=== PATIENT | male | born 1955 | race Two or more races ===

== ENCOUNTER 2018-08-23 11:12 | Emergency (ER) | payer SELFPAY ==
[~2018-08-23] VITALS: Ht 170.2 cm; Wt 77.1 kg
[2018-08-23] MEDS ORDERED: ACETAMINOPHEN 325 MG TAB PO ONE (16:15)
[2018-08-23 16:21] VITALS: BP 161/94
== END 2018-08-23 16:22 | disposition home or self-care (01) ==
LOC: ER 11:12
DX: J20.9 Acute bronchitis, unspecified (principal); E11.9 Type 2 diabetes mellitus without complications; E78.5 Hyperlipidemia, unspecified; I10 Essential (primary) hypertension
CPT/HCPCS: 71046; 93005

== ENCOUNTER → 2019-12-19 | Emergency (ER) | payer SELFPAY ==
[~2019-12-19] VITALS: Ht 170.2 cm; Wt 78.5 kg
[~2019-12-19] MED LIST: SODIUM CHLORIDE 0.9% 1,000 ML IV ONE
[2019-12-19 19:56] LABS: Basophils # (auto) 0 10 ^3/uL (0-0.2); Basophils % (auto) 0.1 % (0.0-2.0); Eosinophils # (auto) 0 10 ^3/uL (0-0.8); Hemoglobin 13.9 g/dL (13.5-17.5); Lymphocytes # (auto) 1.2 10 ^3/uL (0.4-5.4); Lymphocytes % (auto) 26.5 % (10.0-50.0); Mean Corpuscular Hemoglobin 32.9 pg (28.0-32.0); Mean Corpuscular Hgb Conc. 35.6 g/dL (32.0-36.0); Mean Corpuscular Volume 92.4 fL (80.0-100.0); Monocytes # (auto) 0.6 10 ^3/uL (0-1.3); Monocytes % (auto) 12.4 % (0.0-12.0); Neutrophils # (auto) 2.7 10 ^3/uL (1.6-8.6); Platelet Count (auto) 170 10^3/uL (140-450); Red Blood Cells 4.23 10^6/uL (4.5-5.90); Red Cell Distribution Width 13.9 % (11.8-14.3); White Blood Cell 4.5 10^3/uL (4.4-10.8)
[2019-12-19 20:14] LABS: Albumin 3.6 g/dL (3.4-5.0); Calcium 8.7 mg/dL (8.5-10.1); Magnesium 2.2 mg/dL (1.6-2.6); Potassium 3.8 mmol/L (3.5-5.1)
[2019-12-19 20:23] LABS: BUN/Creatinine Ratio 14.6; Bilirubin, Total 0.5 mg/dL (0.2-1.0); CRP High Sensitivity 10.4 mg/dL (< 0.3); Total Protein 7.9 g/dL (6.4-8.2)
[2019-12-19 22:29] VITALS: BP 117/63
== END | disposition home or self-care (01) ==
LOC: ER 18:13
DX: Z03.818 Encounter for observation for suspected exposure to other biological agents ruled out (principal); K52.9 Noninfective gastroenteritis and colitis, unspecified; E11.9 Type 2 diabetes mellitus without complications; I10 Essential (primary) hypertension; E78.5 Hyperlipidemia, unspecified
CPT/HCPCS: 36415; 71045; 74176; 80053; 82728; 83605; 83615; 83735; 84443; 85025; 85379; 86141; 87040; 87070; 87804; 87880; 96360; 99285; C9803; J7030; U0003

== ENCOUNTER 2022-01-11 09:18 | Inpatient (IN) | payer OTHER ==
[~2022-01-11] VITALS: Ht 134.6 cm; Wt 83.3 kg
[2022-01-11] MEDS ORDERED: SODIUM CHLORIDE 0.9% 1,000 ML IV ONE ×2 (09:30→11:00)
[2022-01-11 10:13] LABS: Basophils # (auto) 0 10 ^3/uL (0-0.2); Basophils % (auto) 0.1 % (0.0-2.0); Eosinophils # (auto) 0 10 ^3/uL (0-0.8); Hemoglobin 12.8 g/dL (13.5-17.5); Lymphocytes # (auto) 0.3 10 ^3/uL (0.4-5.4); Lymphocytes % (auto) 1.4 % (10.0-50.0); Mean Corpuscular Hemoglobin 28.5 pg (28.0-32.0); Mean Corpuscular Hgb Conc. 32.8 g/dL (32.0-36.0); Mean Corpuscular Volume 87.1 fL (80.0-100.0); Monocytes # (auto) 0.9 10 ^3/uL (0-1.3); Monocytes % (auto) 4.8 % (0.0-12.0); Neutrophils # (auto) 17.1 10 ^3/uL (1.6-8.6); Neutrophils % (auto) 93.7 % (37.0-80.0); Red Blood Cells 4.48 10^6/uL (4.5-5.90); Red Cell Distribution Width 12.8 % (11.8-14.3); White Blood Cell 18.3 10^3/uL (4.4-10.8)
[2022-01-11 10:21] LABS: Albumin 3.6 g/dL (3.4-5.0); Calcium 9.2 mg/dL (8.5-10.1); Potassium 4.5 mmol/L (3.5-5.1)
[2022-01-11 10:29] LABS: Total Protein 7.5 g/dL (6.4-8.2)
[2022-01-11 10:43] LABS: BUN/Creatinine Ratio 16.7
[2022-01-11] MEDS ORDERED: PIPERACILLIN-TAZOB 3.375GM 100 ML IV ONE (11:00)
[2022-01-11] MEDS ORDERED: InsuLIN REG 1unit/0.01ml Soln (100units/ml) IV ONE (11:00)
[2022-01-11 12:31] LABS: Lactic Acid w/Reflex 2.9 mmol/L (0.4-2.0)
[2022-01-11] MEDS ORDERED: INSULIN LANTUS (GLARGINE) 1 /0.01ml (100units/ml) SC ONE (13:00)
[2022-01-11] MEDS ORDERED: POTASSIUM CHL 20MEQ/100ML 100 ML IV PRN (13:00)
[2022-01-11] MEDS ORDERED: POTASSIUM CHL 20MEQ/100ML 200 ML IV PRN (13:00)
[2022-01-11] MEDS ORDERED: DEXTROSE (50%) 50ML SYRG IV PRN ×2 (13:00→23:45)
[2022-01-11] MEDS: MAGNESIUM SULFATE 1GM/100ML 200 ML IV ONE ×2 (13:00→15:38)
[2022-01-11] MEDS ORDERED: MORPHINE SULFATE INJ 2 MG/ml SYRG IV PRN (13:00)
[2022-01-11] MEDS ORDERED: NITROGLYCERIN 0.4 MG SL TAB SL PRN (13:00)
[2022-01-11] MEDS ORDERED: InsuLIN R (HUMAN) 100 UNITS in SODIUM CHL 0.9% 99 ML IV SCH (13:00)
[2022-01-11] MEDS ORDERED: cefTRIAXone 1GM/50ML D5W 50 ML IV ONE (13:15)
[2022-01-11 13:52] LABS: Basophils # (auto) 0 10 ^3/uL (0-0.2); Basophils % (auto) 0.2 % (0.0-2.0); Eosinophils # (auto) 0 10 ^3/uL (0-0.8); Hematocrit 35.7 % (41.0-53.0); Hemoglobin 11.7 g/dL (13.5-17.5); Lymphocytes # (auto) 0.2 10 ^3/uL (0.4-5.4); Mean Corpuscular Hemoglobin 28.7 pg (28.0-32.0); Mean Corpuscular Hgb Conc. 32.9 g/dL (32.0-36.0); Mean Corpuscular Volume 87.3 fL (80.0-100.0); Monocytes # (auto) 0.6 10 ^3/uL (0-1.3); Monocytes % (auto) 3.6 % (0.0-12.0); Neutrophils % (auto) 95.2 % (37.0-80.0); Red Blood Cells 4.09 10^6/uL (4.5-5.90); Red Cell Distribution Width 12.8 % (11.8-14.3); White Blood Cell 16.8 10^3/uL (4.4-10.8)
[2022-01-11 14:04] LABS: Urine Bacteria NONE SEEN /hpf (None Seen); Urine Blood Negative /uL (Negative); Urine WBC 5 /hpf (0 - 3)
[2022-01-11 14:13] LABS: Calcium 8.3 mg/dL (8.5-10.1); Magnesium 1.7 mg/dL (1.6-2.6); Potassium 4.1 mmol/L (3.5-5.1)
[2022-01-11 14:15] LABS: BUN/Creatinine Ratio 15.6; Phosphorus 2.7 mg/dL (2.5-4.90)
[2022-01-11 14:26] LABS: Cholesterol 125 mg/dL (< 200)
[2022-01-11 14:29] LABS: HDL Cholesterol 29 mg/dL (40-59); LDL Cholesterol 73 mg/dL (< 100); Triglycerides 179 mg/dL (< 150)
[2022-01-11] MEDS: SODIUM CHLORIDE 0.9% 1,000 ML IV SCH ×2 (15:00→15:42)
[2022-01-11] MEDS: ACCU-CHEK COMFORT CURVE STRIP VI SCH ×8 (15:45→23:50)
[2022-01-11] MEDS ORDERED: SODIUM CHLORIDE 0.9% 1,000 ML IV SCH ×2 (17:00→19:00)
[2022-01-11] MEDS ORDERED: MAGNESIUM SULFATE 1GM/100ML 100 ML IV ONE (17:13)
[2022-01-11 20:23] LABS: BUN/Creatinine Ratio 18.8; Potassium 3.7 mmol/L (3.5-5.1)
[2022-01-11] MEDS: D5W/SOD CHL 0.45% 1,000 ML IV SCH (23:45)
[2022-01-12] MEDS: ACCU-CHEK COMFORT CURVE STRIP VI SCH ×4 (00:22→17:55)
[2022-01-12 01:09] LABS: BUN/Creatinine Ratio 20.3; Calcium 7.9 mg/dL (8.5-10.1); Potassium 3.4 mmol/L (3.5-5.1)
[2022-01-12] MEDS ORDERED: ACETAMINOPHEN 325 MG TAB PO PRN (02:45)
[2022-01-12 04:02] VITALS: BP 120/53
[2022-01-12] MEDS ORDERED: LOVA40TA72 PO (04:28)
[2022-01-12] MEDS ORDERED: LANC-634 (04:28)
[2022-01-12] MEDS ORDERED: AMLO-496 PO (04:28)
[2022-01-12] MEDS ORDERED: GLUC-245 XX (04:28)
[2022-01-12 04:52] VITALS: BP 120/53
[2022-01-12] MEDS: InsuLIN REG 1unit/0.01ml Soln (100units/ml) SC SCH ×4 (06:34→18:09)
[2022-01-12 07:20] LABS: Calcium 7.9 mg/dL (8.5-10.1); Potassium 3.5 mmol/L (3.5-5.1)
[2022-01-12 09:00] VITALS: BP 111/56
[2022-01-12] MEDS: cefTRIAXone 1GM/50ML D5W 50 ML IV SCH (09:14)
[2022-01-12] MEDS: INSULIN LANTUS (GLARGINE) 1 /0.01ml (100units/ml) SC SCH (10:00)
[2022-01-12 13:00] VITALS: BP 110/61
[2022-01-12] MEDS: D5W/SOD CHL 0.45% 1,000 ML IV SCH (13:05)
[2022-01-12 16:54] VITALS: BP 150/69
[2022-01-12 20:07] LABS: Basophils # (auto) 0 10 ^3/uL (0-0.2); Basophils % (auto) 0.5 % (0.0-2.0); Eosinophils # (auto) 0.2 10 ^3/uL (0-0.8); Eosinophils % (auto) 2.2 % (0.0-7.0); Hematocrit 35.7 % (41.0-53.0); Lymphocytes # (auto) 0.6 10 ^3/uL (0.4-5.4); Lymphocytes % (auto) 8.2 % (10.0-50.0); Mean Corpuscular Hemoglobin 29.2 pg (28.0-32.0); Mean Corpuscular Hgb Conc. 33.7 g/dL (32.0-36.0); Mean Corpuscular Volume 86.9 fL (80.0-100.0); Monocytes # (auto) 0.6 10 ^3/uL (0-1.3); Monocytes % (auto) 8.2 % (0.0-12.0); Neutrophils % (auto) 80.9 % (37.0-80.0); Red Blood Cells 4.11 10^6/uL (4.5-5.90); White Blood Cell 7.4 10^3/uL (4.4-10.8)
[2022-01-12 20:23] LABS: BUN/Creatinine Ratio 12.9; Calcium 8.3 mg/dL (8.5-10.1); Potassium 3.8 mmol/L (3.5-5.1)
[2022-01-12 22:00] VITALS: BP 144/74
[2022-01-13] MEDS: ACCU-CHEK COMFORT CURVE STRIP VI SCH ×4 (00:02→17:50)
[2022-01-13] MEDS: InsuLIN REG 1unit/0.01ml Soln (100units/ml) SC SCH ×4 (00:03→17:56)
[2022-01-13] MEDS: D5W/SOD CHL 0.45% 1,000 ML IV SCH (02:57)
[2022-01-13 05:00] VITALS: BP 133/59
[2022-01-13 06:46] LABS: Chloride 108 mmol/L (98-107); Potassium 4.1 mmol/L (3.5-5.1); Sodium 135 mmol/L (136-145)
[2022-01-13 06:54] LABS: Albumin 2.5 g/dL (3.4-5.0); Anion Gap 9 (5-15); Aspartate Aminotransferase 99 U/L (15-37); BUN/Creatinine Ratio 13.8; Blood Urea Nitrogen 16 mg/dL (7-18); Calcium 7.9 mg/dL (8.5-10.1); Carbon Dioxide 18 mmol/L (21-32); GFR African American 81 mL/min; GFR Non-African American 67 mL/min; Glucose 324 mg/dL (74-106); Lipase 213 U/L (73-393)
[2022-01-13 07:03] LABS: Alanine Aminotransferase 270 U/L (16-61); Alkaline Phosphatase 176 U/L (45-117); Bilirubin, Total 1.5 mg/dL (0.2-1.0)
[2022-01-13] MEDS: cefTRIAXone 1GM/50ML D5W 50 ML IV SCH (08:55)
[2022-01-13 08:59] VITALS: BP 148/67
[2022-01-13 09:45] LABS: Hepatitis B Surface Antibody Negative (Negative)
[2022-01-13 10:22] LABS: Hepatitis A Total Antibody Positive (Negative)
[2022-01-13] MEDS ORDERED: SODIUM BICARBONATE 8.4 % INJ 50ML VIAL IV ONE (10:30)
[2022-01-13] MEDS: INSULIN LANTUS (GLARGINE) 1 /0.01ml (100units/ml) SC SCH (10:31)
[2022-01-13] MEDS: SODIUM CHLORIDE 0.9% 1,000 ML IV SCH ×2 (11:14→23:50)
[2022-01-13 11:57] LABS: Hepatitis C Antibody Negative (Negative)
[2022-01-13 13:00] VITALS: BP 148/70
[2022-01-13 17:00] VITALS: BP 146/82
[2022-01-13 22:00] VITALS: BP 145/76
[2022-01-13] MEDS: ERGOCALCIFEROL 50,000 UNIT(1.25MG) CAP PO SCH (22:00)
[2022-01-14] MEDS: InsuLIN REG 1unit/0.01ml Soln (100units/ml) SC SCH ×3 (00:23→12:55)
[2022-01-14] MEDS: ACCU-CHEK COMFORT CURVE STRIP VI SCH ×3 (00:24→12:53)
[2022-01-14 05:00] VITALS: BP 150/76
[2022-01-14 07:08] LABS: Basophils # (auto) 0 10 ^3/uL (0-0.2); Basophils % (auto) 0.3 % (0.0-2.0); Eosinophils # (auto) 0.2 10 ^3/uL (0-0.8); Eosinophils % (auto) 3.6 % (0.0-7.0); Hematocrit 34.7 % (41.0-53.0); Hemoglobin 11.8 g/dL (13.5-17.5); Lymphocytes # (auto) 1.1 10 ^3/uL (0.4-5.4); Lymphocytes % (auto) 18.6 % (10.0-50.0); Mean Corpuscular Hemoglobin 29.2 pg (28.0-32.0); Mean Corpuscular Volume 85.9 fL (80.0-100.0); Monocytes # (auto) 0.5 10 ^3/uL (0-1.3); Monocytes % (auto) 8.8 % (0.0-12.0); Neutrophils # (auto) 4.2 10 ^3/uL (1.6-8.6); Neutrophils % (auto) 68.7 % (37.0-80.0); Nucleated Red Blood Cells % 0.1 %; Red Blood Cells 4.04 10^6/uL (4.5-5.90); Red Cell Distribution Width 12.7 % (11.8-14.3); White Blood Cell 6.1 10^3/uL (4.4-10.8)
[2022-01-14 07:25] LABS: Albumin 2.7 g/dL (3.4-5.0); Calcium 8.4 mg/dL (8.5-10.1); Magnesium 1.9 mg/dL (1.6-2.6); Potassium 3.6 mmol/L (3.5-5.1)
[2022-01-14 07:28] LABS: BUN/Creatinine Ratio 14.1; Bilirubin, Total 0.9 mg/dL (0.2-1.0); Phosphorus 3.1 mg/dL (2.5-4.90); Total Protein 6.5 g/dL (6.4-8.2)
[2022-01-14] MEDS ORDERED: ERGO1CAP23 PO (08:37)
[2022-01-14] MEDS ORDERED: GLIP5TAB12 PO (08:37)
[2022-01-14] MEDS ORDERED: METF-372 PO (08:37)
[2022-01-14] MEDS ORDERED: LOSA-69 PO (08:37)
[2022-01-14] MEDS ORDERED: EMPA1TAB3 PO (08:37)
[2022-01-14 08:40] VITALS: BP 138/84
[2022-01-14] MEDS ORDERED: LOSARTAN POTASSIUM 50 MG TAB PO ONE (08:45)
[2022-01-14] MEDS: cefTRIAXone 1GM/50ML D5W 50 ML IV SCH (09:05)
[2022-01-14] MEDS: INSULIN LANTUS (GLARGINE) 1 /0.01ml (100units/ml) SC SCH (09:38)
[2022-01-14] MEDS: ERGOCALCIFEROL 50,000 UNIT(1.25MG) CAP PO SCH (09:58)
[2022-01-14 11:42] LABS: Urine Bacteria FEW /hpf (None Seen); Urine Blood 3+ /uL (Negative); Urine Mucus FEW (None Seen); Urine WBC 6 /hpf (0 - 3)
[2022-01-14 12:36] VITALS: BP 139/74
[2022-01-14] MEDS: SODIUM CHLORIDE 0.9% 1,000 ML IV SCH (13:37)
[2022-01-14] MEDS ORDERED: LEVO750T8 PO (14:53)
[2022-01-14 15:59] VITALS: BP 159/77
== END 2022-01-14 16:59 | disposition home or self-care (01) | DRG 871 ==
LOC: ER 09:18 → TELE 12:59 → TELE-CENTR 01-12 03:40
PROVIDERS: ADMIT Registered Nurse; ATTEND Internal Medicine
DX: A41.51 Sepsis due to Escherichia coli [E. coli] (principal); E11.10 Type 2 diabetes mellitus with ketoacidosis without coma; G93.41 Metabolic encephalopathy; N17.0 Acute kidney failure with tubular necrosis; N39.0 Urinary tract infection, site not specified; E44.0 Moderate protein-calorie malnutrition; Z68.42 Body mass index [BMI] 45.0-49.9, adult; E78.5 Hyperlipidemia, unspecified; I10 Essential (primary) hypertension; Z20.822 Contact with and (suspected) exposure to COVID-19; K76.0 Fatty (change of) liver, not elsewhere classified; E11.65 Type 2 diabetes mellitus with hyperglycemia; Z83.3 Family history of diabetes mellitus; E78.00 Pure hypercholesterolemia, unspecified
CPT/HCPCS: 36415; 36600; 71045; 76705; 80048; 80053; 80061; 81001; 82010; 82043; 82306; 82805; 82962; 83036; 83605; 83690; 83735; 83880; 83930; 84100; 84443; 84484; 85025; 86704; 86706; 86708; 86803; 87040; 87077; 87086; 87186; 87340; 96365; 96375; 99291; G0378; J0696; J1815; J2543

== ENCOUNTER → 2022-01-20 | Outpatient (CLI) | payer OTHER ==
[~2022-01-20] MED LIST changes: +EMPA1TAB3 PO; +ERGO1CAP23 PO; +GLIP5TAB12 PO; +GLUC-245 XX; +LANC-634; +LEVO750T8 PO; +LOSA-69 PO; +METF-372 PO; -SODIUM CHLORIDE 0.9% 1,000 ML IV ONE
[2022-01-20 09:14] LABS: Potassium 4.2 mmol/L (3.5-5.1)
[2022-01-20 09:19] LABS: Albumin 3.5 g/dL (3.4-5.0); BUN/Creatinine Ratio 15.6; Bilirubin, Total 0.6 mg/dL (0.2-1.0); Calcium 9.1 mg/dL (8.5-10.1); Total Protein 7.1 g/dL (6.4-8.2)
== END | disposition home or self-care (01) ==
LOC: LAB 08:23
PROVIDERS: ATTEND Internal Medicine
DX: I10 Essential (primary) hypertension (principal)
CPT/HCPCS: 36415; 80053

== ENCOUNTER → 2022-02-14 | Outpatient (CLI) | payer OTHER | END | disposition home or self-care (01) | LOC: LAB 12:25 | PROVIDERS: ATTEND Internal Medicine | DX: Z12.11 Encounter for screening for malignant neoplasm of colon (principal) | CPT/HCPCS: 82270 ==

== ENCOUNTER → 2022-02-19 | Outpatient (CLI) | payer OTHER ==
[2022-02-19 11:11] LABS: Basophils # (auto) 0 10 ^3/uL (0-0.2); Basophils % (auto) 0.2 % (0.0-2.0); Eosinophils # (auto) 0.3 10 ^3/uL (0-0.8); Hematocrit 41.8 % (41.0-53.0); Hemoglobin 13.9 g/dL (13.5-17.5); Lymphocytes # (auto) 2.1 10 ^3/uL (0.4-5.4); Lymphocytes % (auto) 20.3 % (10.0-50.0); Mean Corpuscular Hgb Conc. 33.2 g/dL (32.0-36.0); Mean Corpuscular Volume 84.6 fL (80.0-100.0); Monocytes # (auto) 0.6 10 ^3/uL (0-1.3); Monocytes % (auto) 5.9 % (0.0-12.0); Neutrophils # (auto) 7.2 10 ^3/uL (1.6-8.6); Neutrophils % (auto) 70.6 % (37.0-80.0); Nucleated Red Blood Cells % 0.1 %; Red Blood Cells 4.94 10^6/uL (4.5-5.90); Red Cell Distribution Width 13.7 % (11.8-14.3); White Blood Cell 10.1 10^3/uL (4.4-10.8)
[2022-02-19 11:34] LABS: Potassium 4.7 mmol/L (3.5-5.1)
[2022-02-19 11:43] LABS: Albumin 4.2 g/dL (3.4-5.0); BUN/Creatinine Ratio 22.7; Bilirubin, Total 0.7 mg/dL (0.2-1.0); Calcium 9.5 mg/dL (8.5-10.1); Total Protein 7.7 g/dL (6.4-8.2)
== END | disposition home or self-care (01) ==
LOC: LAB 10:32
PROVIDERS: ATTEND Internal Medicine
DX: Z12.5 Encounter for screening for malignant neoplasm of prostate (principal); Z12.11 Encounter for screening for malignant neoplasm of colon; E11.69 Type 2 diabetes mellitus with other specified complication; E78.5 Hyperlipidemia, unspecified
CPT/HCPCS: 36415; 80053; 80061; 82043; 82306; 83036; 84153; 84443; 85025

== ENCOUNTER 2022-06-03 15:46 | Emergency (ER) | payer OTHER ==
[~2022-06-03] VITALS: Ht 167.6 cm; Wt 68.0 kg
[2022-06-03 16:58] LABS: Basophils # (auto) 0 10 ^3/uL (0-0.2); Basophils % (auto) 0.2 % (0.0-2.0); Eosinophils # (auto) 0.1 10 ^3/uL (0-0.8); Eosinophils % (auto) 0.9 % (0.0-7.0); Hematocrit 38.3 % (41.0-53.0); Hemoglobin 12.7 g/dL (13.5-17.5); Lymphocytes # (auto) 1.1 10 ^3/uL (0.4-5.4); Lymphocytes % (auto) 7.2 % (10.0-50.0); Mean Corpuscular Hemoglobin 28.5 pg (28.0-32.0); Mean Corpuscular Volume 86.2 fL (80.0-100.0); Monocytes % (auto) 6.5 % (0.0-12.0); Neutrophils # (auto) 13.2 10 ^3/uL (1.6-8.6); Neutrophils % (auto) 85.2 % (37.0-80.0); Red Blood Cells 4.45 10^6/uL (4.5-5.90); Red Cell Distribution Width 14.5 % (11.8-14.3); White Blood Cell 15.5 10^3/uL (4.4-10.8)
[2022-06-03 17:12] LABS: INR 1.04 (0.9-1.15); Partial Thromboplastin Time 33.9 sec (24.6-33.4)
[2022-06-03 17:16] LABS: Albumin 3.8 g/dL (3.4-5.0); Potassium 3.8 mmol/L (3.5-5.1)
[2022-06-03 17:18] LABS: BUN/Creatinine Ratio 18.9
[2022-06-03 17:20] LABS: Total Protein 7.5 g/dL (6.4-8.2)
[2022-06-03] MEDS ORDERED: LEVO750T64 PO (17:43)
[2022-06-03] MEDS ORDERED: LEVO750T8 PO (19:58)
[2022-06-03] MEDS ORDERED: ACETAMINOPHEN 500 MG TAB PO ONE (20:00)
[2022-06-03] MEDS ORDERED: DEXT1SYP9 PO (20:01)
[2022-06-03 20:42] VITALS: BP 114/89
== END 2022-06-03 19:59 | disposition home or self-care (01) ==
LOC: ER 15:46
DX: J18.9 Pneumonia, unspecified organism (principal); I10 Essential (primary) hypertension; E11.9 Type 2 diabetes mellitus without complications; E78.5 Hyperlipidemia, unspecified; Z79.1 Long term (current) use of non-steroidal anti-inflammatories (NSAID); Z79.2 Long term (current) use of antibiotics; Z79.899 Other long term (current) drug therapy; Z20.822 Contact with and (suspected) exposure to COVID-19
CPT/HCPCS: 36415; 71046; 80053; 83735; 83880; 84484; 85025; 85610; 85730; 87426; 87804; 93005

== ENCOUNTER 2022-08-06 18:11 | Inpatient (IN) | payer OTHER ==
[~2022-08-06] VITALS: Ht 170.2 cm; Wt 80.1 kg
[~2022-08-06 18:11] MED LIST changes: +DEXT1SYP9 PO
[2022-08-06] MEDS ORDERED: SODIUM CHLORIDE 0.9% 1,000 ML IV ONE (18:30)
[2022-08-06 19:11] LABS: Basophils # (auto) 0 10 ^3/uL (0-0.2); Basophils % (auto) 0.1 % (0.0-2.0); Eosinophils # (auto) 0.1 10 ^3/uL (0-0.8); Eosinophils % (auto) 0.4 % (0.0-7.0); Hematocrit 38.9 % (41.0-53.0); Hemoglobin 13.4 g/dL (13.5-17.5); Lymphocytes # (auto) 0.3 10 ^3/uL (0.4-5.4); Lymphocytes % (auto) 1.9 % (10.0-50.0); Mean Corpuscular Hemoglobin 28.8 pg (28.0-32.0); Mean Corpuscular Hgb Conc. 34.4 g/dL (32.0-36.0); Mean Corpuscular Volume 83.6 fL (80.0-100.0); Monocytes # (auto) 0.7 10 ^3/uL (0-1.3); Monocytes % (auto) 4.8 % (0.0-12.0); Neutrophils # (auto) 12.8 10 ^3/uL (1.6-8.6); Neutrophils % (auto) 92.8 % (37.0-80.0); Nucleated Red Blood Cells % 0.1 %; Red Blood Cells 4.66 10^6/uL (4.5-5.90); Red Cell Distribution Width 14.7 % (11.8-14.3); White Blood Cell 13.8 10^3/uL (4.4-10.8)
[2022-08-06 19:25] LABS: Calcium 9.6 mg/dL (8.5-10.1); Magnesium 1.8 mg/dL (1.6-2.6); Potassium 3.7 mmol/L (3.5-5.1)
[2022-08-06 19:26] LABS: INR 1.08 (0.9-1.15); Partial Thromboplastin Time 25.5 sec (24.6-33.4)
[2022-08-06 19:31] LABS: BUN/Creatinine Ratio 18.8; Bilirubin, Total 3.3 mg/dL (0.2-1.0); Total Protein 8.1 g/dL (6.4-8.2)
[2022-08-06 22:17] LABS: Urine Bacteria NONE SEEN /hpf (None Seen); Urine Blood Negative /uL (Negative); Urine Mucus FEW (None Seen); Urine Specific Gravity 1.027 (1.001-1.035); Urine WBC <1 /hpf (0 - 3)
[2022-08-06] MEDS ORDERED: MORPHINE SULFATE INJ 2 MG/ml SYRG IV PRN (22:30)
[2022-08-06] MEDS ORDERED: NITROGLYCERIN 0.4 MG SL TAB SL PRN (22:30)
[2022-08-06 22:32] LABS: Alcohol, Urine < 3.0 mg/dL (0-10); Amphetamine Screen, Urine NEGATIVE (NEGATIVE); Barbiturate Scree,Urine NEGATIVE (NEGATIVE); Benzodiazephine Screen, Urine NEGATIVE (NEGATIVE); Cannabinoid Screen, Urine NEGATIVE (NEGATIVE); Cocaine Screen, Urine NEGATIVE (NEGATIVE); Opiate Scree,Urine NEGATIVE (NEGATIVE); Phencyclidine Screen, Urine NEGATIVE (NEGATIVE)
[2022-08-06] MEDS ORDERED: VANCOMYCIN PER PHARMACY 0 MG IV SCH ×2 (22:45→23:15)
[2022-08-06] MEDS ORDERED: DEXTROSE (50%) 50ML SYRG IV PRN (22:45)
[2022-08-06] MEDS ORDERED: VANCOMYCIN 1GM/250ML 250 ML IV ONE (23:15)
[2022-08-07 00:08] LABS: Lactic Acid w/Reflex 2.9 mmol/L (0.4-2.0)
[2022-08-07] MEDS: SODIUM CHLORIDE 0.9% 1,000 ML IV SCH ×4 (01:16→23:56)
[2022-08-07 05:13] LABS: Basophils # (auto) 0 10 ^3/uL (0-0.2); Eosinophils # (auto) 0 10 ^3/uL (0-0.8); Eosinophils % (auto) 0.1 % (0.0-7.0); Hematocrit 33.6 % (41.0-53.0); Hemoglobin 11.3 g/dL (13.5-17.5); Lymphocytes # (auto) 0.5 10 ^3/uL (0.4-5.4); Lymphocytes % (auto) 3.8 % (10.0-50.0); Mean Corpuscular Hemoglobin 28.3 pg (28.0-32.0); Mean Corpuscular Hgb Conc. 33.7 g/dL (32.0-36.0); Mean Corpuscular Volume 83.9 fL (80.0-100.0); Monocytes # (auto) 0.9 10 ^3/uL (0-1.3); Monocytes % (auto) 6.4 % (0.0-12.0); Neutrophils # (auto) 12.2 10 ^3/uL (1.6-8.6); Neutrophils % (auto) 89.7 % (37.0-80.0); Red Blood Cells 4.01 10^6/uL (4.5-5.90); Red Cell Distribution Width 14.8 % (11.8-14.3); White Blood Cell 13.6 10^3/uL (4.4-10.8)
[2022-08-07 05:25] LABS: Albumin 3.3 g/dL (3.4-5.0)
[2022-08-07 05:28] LABS: BUN/Creatinine Ratio 20.4; Bilirubin, Total 3.4 mg/dL (0.2-1.0); Total Protein 6.4 g/dL (6.4-8.2)
[2022-08-07] MEDS: ACCU-CHEK COMFORT CURVE STRIP VI SCH ×4 (07:00→22:00)
[2022-08-07] MEDS: InsuLIN REG 1unit/0.01ml Soln (100units/ml) SC SCH ×4 (07:06→22:00)
[2022-08-07 08:21] LABS: Cholesterol 82 mg/dL (< 200); HDL Cholesterol 31 mg/dL (40-59); LDL Cholesterol 52 mg/dL (< 100); Triglycerides 81 mg/dL (< 150)
[2022-08-07 08:30] LABS: Free T4 (Free Thyroxine) 1.25 ng/dL (0.89-1.76)
[2022-08-07 08:31] LABS: T3 Total 0.7 ng/mL (0.60-1.81)
[2022-08-07] MEDS: PANTOPRAZOLE 40 MG/10 ML VIAL INJ IV SCH (10:18)
[2022-08-07] MEDS: PIPERACILLIN-TAZOB 3.375GM 100 ML IV SCH ×2 (12:49→18:31)
[2022-08-07 13:53] LABS: Hepatitis A Ab IgM Negative
[2022-08-07 14:03] LABS: Hepatitis B Core IgM Negative
[2022-08-07 14:08] LABS: Hepatitis B Surface Antibody Negative (Negative)
[2022-08-07 14:14] LABS: Hepatitis C Antibody Negative (Negative)
[2022-08-07 14:17] LABS: Hepatitis C Antibody Negative (Negative)
[2022-08-07 14:29] LABS: Hepatitis A Total Antibody Positive (Negative)
[2022-08-07] MEDS: VANCOMYCIN 1GM/250ML 250 ML IV SCH (17:04)
[2022-08-07] MEDS ORDERED: LORazepam 0.5 MG TAB PO ONE (23:00)
[2022-08-08] MEDS: PIPERACILLIN-TAZOB 3.375GM 100 ML IV SCH ×4 (00:39→22:04)
[2022-08-08 05:57] LABS: Basophils # (auto) 0 10 ^3/uL (0-0.2); Basophils % (auto) 0.1 % (0.0-2.0); Eosinophils # (auto) 0.2 10 ^3/uL (0-0.8); Eosinophils % (auto) 2.3 % (0.0-7.0); Hematocrit 34.6 % (41.0-53.0); Hemoglobin 11.9 g/dL (13.5-17.5); Lymphocytes # (auto) 0.9 10 ^3/uL (0.4-5.4); Lymphocytes % (auto) 9.8 % (10.0-50.0); Mean Corpuscular Hgb Conc. 34.3 g/dL (32.0-36.0); Mean Corpuscular Volume 84.4 fL (80.0-100.0); Monocytes # (auto) 0.6 10 ^3/uL (0-1.3); Monocytes % (auto) 6.8 % (0.0-12.0); Neutrophils # (auto) 7.4 10 ^3/uL (1.6-8.6); White Blood Cell 9.2 10^3/uL (4.4-10.8)
[2022-08-08 06:15] LABS: Albumin 3.5 g/dL (3.4-5.0); Calcium 8.1 mg/dL (8.5-10.1); Potassium 3.6 mmol/L (3.5-5.1)
[2022-08-08 06:19] LABS: Bilirubin, Total 3.6 mg/dL (0.2-1.0)
[2022-08-08] MEDS: SODIUM CHLORIDE 0.9% 1,000 ML IV SCH (06:54)
[2022-08-08] MEDS: ACCU-CHEK COMFORT CURVE STRIP VI SCH ×4 (07:10→21:38)
[2022-08-08] MEDS: InsuLIN REG 1unit/0.01ml Soln (100units/ml) SC SCH ×4 (07:13→22:01)
[2022-08-08] MEDS: PANTOPRAZOLE 40 MG/10 ML VIAL INJ IV SCH (10:59)
[2022-08-08 13:56] VITALS: BP 132/64
[2022-08-08] MEDS: VANCOMYCIN 1GM/250ML 250 ML IV SCH (14:09)
[2022-08-08] MEDS ORDERED: PIPERACILLIN-TAZOB 3.375GM 100 ML IV SCH (14:30)
[2022-08-08] MEDS ORDERED: hydrALAZINE HCL 25 MG TAB PO PRN (17:00)
[2022-08-08] MEDS ORDERED: hydrALAZINE HCL 20 MG/ML VL IV PRN (17:15)
[2022-08-08 17:18] VITALS: BP 171/79
[2022-08-08 18:52] VITALS: BP 117/69
[2022-08-08 22:00] VITALS: BP 148/68
[2022-08-09] MEDS: VANCOMYCIN 1GM/250ML 250 ML IV SCH (01:21)
[2022-08-09] MEDS: PIPERACILLIN-TAZOB 3.375GM 100 ML IV SCH ×2 (03:51→10:03)
[2022-08-09 04:59] VITALS: BP 142/63
[2022-08-09] MEDS: ACCU-CHEK COMFORT CURVE STRIP VI SCH ×2 (06:19→11:45)
[2022-08-09] MEDS: InsuLIN REG 1unit/0.01ml Soln (100units/ml) SC SCH ×2 (06:21→11:41)
[2022-08-09 06:28] LABS: Potassium 3.5 mmol/L (3.5-5.1)
[2022-08-09 06:37] LABS: BUN/Creatinine Ratio 10.8; Calcium 8.2 mg/dL (8.5-10.1); Total Protein 5.6 g/dL (6.4-8.2)
[2022-08-09 09:00] VITALS: BP 173/67
[2022-08-09] MEDS: PANTOPRAZOLE 40 MG/10 ML VIAL INJ IV SCH (10:03)
[2022-08-09 13:00] VITALS: BP 168/69
[2022-08-09] MEDS ORDERED: LEVO750T8 PO (14:00)
[2022-08-09] MEDS ORDERED: METR500T PO (14:00)
[2022-08-09 15:03] VITALS: BP 168/69
== END 2022-08-09 16:25 | disposition home or self-care (01) | DRG 872 ==
LOC: EDBD 18:11 → ER 18:11 → TELE 22:32 → TELE-E-ADS 08-08 12:59 → TELE-CENTR 08-08 13:02
PROVIDERS: ADMIT Registered Nurse; ATTEND Internal Medicine
DX: A41.9 Sepsis, unspecified organism (principal); K80.00 Calculus of gallbladder with acute cholecystitis without obstruction; N17.9 Acute kidney failure, unspecified; J98.11 Atelectasis; I12.9 Hypertensive chronic kidney disease with stage 1 through stage 4 chronic kidney disease, or unspecified chronic kidney disease; E11.22 Type 2 diabetes mellitus with diabetic chronic kidney disease; N18.31 Chronic kidney disease, stage 3a; E80.6 Other disorders of bilirubin metabolism; E78.5 Hyperlipidemia, unspecified; E04.1 Nontoxic single thyroid nodule; R74.8 Abnormal levels of other serum enzymes; Z20.822 Contact with and (suspected) exposure to COVID-19; N28.1 Cyst of kidney, acquired; K57.30 Diverticulosis of large intestine without perforation or abscess without bleeding; J32.0 Chronic maxillary sinusitis; K82.8 Other specified diseases of gallbladder; Z83.3 Family history of diabetes mellitus
CPT/HCPCS: 36415; 70450; 71045; 71250; 72125; 74176; 74181; 76705; 78226; 80053; 80061; 80074; 80202; 80307; 81001; 82140; 82248; 82962; 82977; 83036; 83605; 83690; 83735; 83880; 84439; 84443; 84480; 84484; 85025; 85610; 85730; 86704; 86706; 86708; 86803; 87040; 87077; 87186; 87340; 87426; 93005; 93306; 93886; 93971; 96365; 96367; 96375; C9113; G0378; J1815; J2543

== ENCOUNTER → 2022-10-10 | Outpatient (CLI) | payer OTHER ==
[~2022-10-10] MED LIST changes: +METR500T PO
[2022-10-10 10:53] LABS: Calcium 9.3 mg/dL (8.5-10.1); Potassium 4.2 mmol/L (3.5-5.1)
[2022-10-10 10:56] LABS: BUN/Creatinine Ratio 16.3 (10.0-20.0)
== END | disposition home or self-care (01) ==
LOC: LAB 09:45
PROVIDERS: ATTEND Internal Medicine
DX: E11.22 Type 2 diabetes mellitus with diabetic chronic kidney disease (principal); N18.9 Chronic kidney disease, unspecified; E11.42 Type 2 diabetes mellitus with diabetic polyneuropathy
CPT/HCPCS: 36415; 80048; 82043; 82570

== ENCOUNTER 2022-11-08 18:02 | Inpatient (IN) | payer OTHER ==
[~2022-11-08] VITALS: Ht 165.1 cm; Wt 80.9 kg
[2022-11-08] MEDS ORDERED: ACCU-CHEK COMFORT CURVE STRIP VI ONE (18:30)
[2022-11-08] MEDS ORDERED: SODIUM CHLORIDE 0.9% 1,000 ML IV ONE (18:30)
[2022-11-08 19:06] LABS: Basophils # (auto) 0 10 ^3/uL (0-0.2); Basophils % (auto) 0.1 % (0.0-2.0); Eosinophils # (auto) 0.1 10 ^3/uL (0-0.8); Eosinophils % (auto) 0.4 % (0.0-7.0); Hemoglobin 11.5 g/dL (13.5-17.5); Lymphocytes # (auto) 1.6 10 ^3/uL (0.4-5.4); Lymphocytes % (auto) 8.1 % (10.0-50.0); Mean Corpuscular Hemoglobin 27.9 pg (28.0-32.0); Mean Corpuscular Hgb Conc. 32.9 g/dL (32.0-36.0); Mean Corpuscular Volume 84.6 fL (80.0-100.0); Monocytes # (auto) 1.2 10 ^3/uL (0-1.3); Monocytes % (auto) 6.4 % (0.0-12.0); Neutrophils # (auto) 16.5 10 ^3/uL (1.6-8.6); Red Blood Cells 4.13 10^6/uL (4.5-5.90); Red Cell Distribution Width 13.9 % (11.8-14.3); White Blood Cell 19.4 10^3/uL (4.4-10.8)
[2022-11-08] MEDS ORDERED: PIPERACILLIN-TAZOB 3.375GM 100 ML IV ONE (19:30)
[2022-11-08 19:38] LABS: Albumin 3.7 g/dL (3.4-5.0); Anion Gap 7 (5-15); Blood Urea Nitrogen 22 mg/dL (7-18); Calcium 8.4 mg/dL (8.5-10.1); Carbon Dioxide 22 mmol/L (21-32); Chloride 102 mmol/L (98-107); Glucose 323 mg/dL (74-106); Magnesium 2.1 mg/dL (1.6-2.6); Potassium 4.1 mmol/L (3.5-5.1); Sodium 131 mmol/L (136-145)
[2022-11-08 19:46] LABS: Alanine Aminotransferase 26 U/L (16-61); Alkaline Phosphatase 100 U/L (45-117); Aspartate Aminotransferase 15 U/L (15-37); BUN/Creatinine Ratio 16.3 (10.0-20.0); Bilirubin, Total 1.1 mg/dL (0.2-1.0); Blood Alcohol < 3.0 mg/dL (0-5); GFR African American 67 mL/min; GFR Non-African American 56 mL/min; Total Protein 7.1 g/dL (6.4-8.2)
[2022-11-08 19:48] LABS: INR 1.06 (0.9-1.15); Partial Thromboplastin Time 30.9 sec (24.6-33.4)
[2022-11-08] MEDS ORDERED: DEXTROSE (50%) 50ML SYRG IV PRN (22:15)
[2022-11-08] MEDS ORDERED: DOCUSATE SOD 100 MG CAP PO PRN (22:15)
[2022-11-08] MEDS ORDERED: ACETAMINOPHEN 325 MG TAB PO PRN (22:15)
[2022-11-08] MEDS ORDERED: ONDANSETRON HCL 4 MG/2 ML VIAL IV PRN (22:15)
[2022-11-08] MEDS ORDERED: HYDROcodone-ACET 5/325MG TAB PO PRN (22:15)
[2022-11-08] MEDS ORDERED: NITROGLYCERIN 0.4 MG SL TAB SL PRN (23:45)
[2022-11-08] MEDS ORDERED: MORPHINE SULFATE INJ 2 MG/ml SYRG IV PRN (23:45)
[2022-11-09] MEDS: SODIUM CHLORIDE 0.9% 1,000 ML IV SCH ×2 (00:22→15:50)
[2022-11-09] MEDS: hydrALAZINE HCL 20 MG/ML VL IV PRN ×2 (02:10→16:27)
[2022-11-09 05:25] LABS: Basophils # (auto) 0 10 ^3/uL (0-0.2); Basophils % (auto) 0.1 % (0.0-2.0); Eosinophils # (auto) 0 10 ^3/uL (0-0.8); Eosinophils % (auto) 0.2 % (0.0-7.0); Hematocrit 33.5 % (41.0-53.0); Hemoglobin 11.4 g/dL (13.5-17.5); Lymphocytes # (auto) 0.9 10 ^3/uL (0.4-5.4); Lymphocytes % (auto) 5.4 % (10.0-50.0); Mean Corpuscular Hemoglobin 28.7 pg (28.0-32.0); Mean Corpuscular Hgb Conc. 33.9 g/dL (32.0-36.0); Mean Corpuscular Volume 84.6 fL (80.0-100.0); Monocytes % (auto) 6.1 % (0.0-12.0); Neutrophils # (auto) 14.9 10 ^3/uL (1.6-8.6); Neutrophils % (auto) 88.2 % (37.0-80.0); Nucleated Red Blood Cells % 0.1 %; Red Blood Cells 3.96 10^6/uL (4.5-5.90); White Blood Cell 16.8 10^3/uL (4.4-10.8)
[2022-11-09 05:34] LABS: Albumin 3.5 g/dL (3.4-5.0); BUN/Creatinine Ratio 16.5 (10.0-20.0); Calcium 8.8 mg/dL (8.5-10.1)
[2022-11-09 05:37] LABS: Bilirubin, Total 1.4 mg/dL (0.2-1.0); Total Protein 7.4 g/dL (6.4-8.2)
[2022-11-09] MEDS: ACCU-CHEK COMFORT CURVE STRIP VI SCH ×4 (07:00→22:00)
[2022-11-09] MEDS: InsuLIN REG 1unit/0.01ml Soln (100units/ml) SC SCH ×4 (07:57→22:59)
[2022-11-09] MEDS: cefTRIAXone 1GM/50ML D5W 50 ML IV SCH (08:39)
[2022-11-09] MEDS: FAMOTIDINE (10MG/ML) 2ML VL IV SCH (08:39)
[2022-11-09] MEDS: ASPirin 81 mg TAB PO SCH (08:39)
[2022-11-09] MEDS: LOSARTAN POTASSIUM 50 MG TAB PO SCH (08:40)
[2022-11-09] MEDS: AZITHROMYCIN 500MG/ 250ML 250 ML IV SCH (09:06)
[2022-11-09 11:19] LABS: Urine Bacteria None Seen /hpf (None Seen); Urine WBC None Seen /hpf (0 - 3)
[2022-11-09 11:53] LABS: Alcohol, Urine < 3.0 mg/dL (0-10); Amphetamine Screen, Urine NEGATIVE (NEGATIVE); Barbiturate Scree,Urine NEGATIVE (NEGATIVE); Benzodiazephine Screen, Urine NEGATIVE (NEGATIVE); Cannabinoid Screen, Urine NEGATIVE (NEGATIVE)
[2022-11-09 12:04] LABS: Cocaine Screen, Urine NEGATIVE (NEGATIVE); Opiate Scree,Urine NEGATIVE (NEGATIVE); Phencyclidine Screen, Urine NEGATIVE (NEGATIVE)
[2022-11-09 12:25] LABS: Urine Blood Normal /uL (Negative); Urine Specific Gravity 1.013 (1.001-1.035)
[2022-11-10] VITALS (7 sets, daily range): BP systolic 130–169; BP diastolic 62–80
[2022-11-10] MEDS: hydrALAZINE HCL 20 MG/ML VL IV PRN (02:00)
[2022-11-10] MEDS: ACCU-CHEK COMFORT CURVE STRIP VI SCH ×4 (06:10→21:15)
[2022-11-10] MEDS: InsuLIN REG 1unit/0.01ml Soln (100units/ml) SC SCH ×4 (06:14→21:14)
[2022-11-10] MEDS: SODIUM CHLORIDE 0.9% 1,000 ML IV SCH (08:41)
[2022-11-10] MEDS: cefTRIAXone 1GM/50ML D5W 50 ML IV SCH (09:01)
[2022-11-10] MEDS: FAMOTIDINE (10MG/ML) 2ML VL IV SCH (09:02)
[2022-11-10] MEDS: LOSARTAN POTASSIUM 50 MG TAB PO SCH (09:07)
[2022-11-10] MEDS: ASPirin 81 mg TAB PO SCH (09:08)
[2022-11-10] MEDS: AZITHROMYCIN 500MG/ 250ML 250 ML IV SCH (10:00)
[2022-11-11] MEDS: ALBUTEROL SULF 2.5 MG/0.5ML(0.5%) NEB SOLN NEB SCH ×4 (00:09→18:00)
[2022-11-11] MEDS: IPRATROPIUM BROM 0.5 MG/2.5ML INH SOL NEB SCH ×4 (00:09→18:00)
[2022-11-11 02:46] VITALS: BP 160/62
[2022-11-11 05:00] VITALS: BP_SYST 131; BP_SYST 177; BP_DIAS 84; BP_DIAS 87
[2022-11-11] MEDS: hydrALAZINE HCL 20 MG/ML VL IV PRN (05:19)
[2022-11-11] MEDS: ACCU-CHEK COMFORT CURVE STRIP VI SCH ×2 (06:07→12:04)
[2022-11-11] MEDS: InsuLIN REG 1unit/0.01ml Soln (100units/ml) SC SCH ×2 (06:11→12:03)
[2022-11-11 06:24] LABS: Basophils # (auto) 0 10 ^3/uL (0-0.2); Basophils % (auto) 0.1 % (0.0-2.0); Eosinophils # (auto) 0.4 10 ^3/uL (0-0.8); Eosinophils % (auto) 3.7 % (0.0-7.0); Hematocrit 33.9 % (41.0-53.0); Hemoglobin 11.9 g/dL (13.5-17.5); Lymphocytes # (auto) 1.5 10 ^3/uL (0.4-5.4); Mean Corpuscular Hemoglobin 29.8 pg (28.0-32.0); Mean Corpuscular Volume 84.9 fL (80.0-100.0); Monocytes # (auto) 0.9 10 ^3/uL (0-1.3); Monocytes % (auto) 8.1 % (0.0-12.0); Neutrophils % (auto) 74.1 % (37.0-80.0); Nucleated Red Blood Cells % 0.1 %; Red Blood Cells 3.99 10^6/uL (4.5-5.90); Red Cell Distribution Width 13.6 % (11.8-14.3); White Blood Cell 10.8 10^3/uL (4.4-10.8)
[2022-11-11 06:29] LABS: BUN/Creatinine Ratio 17.6 (10.0-20.0); Calcium 9.1 mg/dL (8.5-10.1)
[2022-11-11 09:00] VITALS: BP 141/88
[2022-11-11] MEDS: cefTRIAXone 1GM/50ML D5W 50 ML IV SCH (09:33)
[2022-11-11] MEDS: ASPirin 81 mg TAB PO SCH (10:15)
[2022-11-11] MEDS: AZITHROMYCIN 500MG/ 250ML 250 ML IV SCH (10:15)
[2022-11-11] MEDS: LOSARTAN POTASSIUM 50 MG TAB PO SCH (10:19)
[2022-11-11] MEDS: FAMOTIDINE (10MG/ML) 2ML VL IV SCH (10:32)
[2022-11-11 13:00] VITALS: BP 163/86
[2022-11-11] MEDS ORDERED: ASPI-325 PO (15:58)
[2022-11-11 16:25] VITALS: BP 142/75
[2022-11-11 17:00] VITALS: BP 144/69
== END 2022-11-11 17:55 | disposition home or self-care (01) | DRG 871 ==
LOC: ER 18:02 → OVERFLOW 23:46 → WEST WING 11-09 21:06
PROVIDERS: ADMIT Nurse Practitioner Family; ATTEND Internal Medicine
DX: A41.9 Sepsis, unspecified organism (principal); J15.6 Pneumonia due to other Gram-negative bacteria; E87.1 Hypo-osmolality and hyponatremia; N17.9 Acute kidney failure, unspecified; G45.9 Transient cerebral ischemic attack, unspecified; E11.65 Type 2 diabetes mellitus with hyperglycemia; D64.9 Anemia, unspecified; E78.5 Hyperlipidemia, unspecified; I10 Essential (primary) hypertension; R29.6 Repeated falls; R26.81 Unsteadiness on feet; J32.9 Chronic sinusitis, unspecified; Z20.822 Contact with and (suspected) exposure to COVID-19
CPT/HCPCS: 36415; 70450; 71045; 71250; 76536; 80048; 80053; 80307; 80320; 81001; 82140; 82962; 83036; 83605; 83735; 83880; 84484; 85025; 85379; 85610; 85730; 87040; 87426; 87804; 93005; 94640; 96361; 96365; G0378; J0696; J1815; J2543; J3490

== ENCOUNTER → 2023-01-06 | Outpatient (CLI) | payer OTHER ==
[~2023-01-06] MED LIST changes: +ASPI-325 PO; -LEVO750T8 PO; -LOSA-69 PO; +LOSA50TA46 PO; -METR500T PO
[2023-01-06 12:27] LABS: Potassium 4.5 mmol/L (3.5-5.1)
[2023-01-06 12:40] LABS: Albumin 3.6 g/dL (3.4-5.0); BUN/Creatinine Ratio 14.5 (10.0-20.0); Bilirubin, Total 0.5 mg/dL (0.2-1.0); Calcium 9.4 mg/dL (8.5-10.1)
== END | disposition home or self-care (01) ==
LOC: LAB 10:01
PROVIDERS: ATTEND Internal Medicine
DX: Z51.81 Encounter for therapeutic drug level monitoring (principal); E66.9 Obesity, unspecified; I63.9 Cerebral infarction, unspecified; N18.2 Chronic kidney disease, stage 2 (mild)
CPT/HCPCS: 36415; 80053; 80061; 82550

== ENCOUNTER → 2023-04-23 | Outpatient (CLI) | payer OTHER ==
[2023-04-23 09:45] LABS: Basophils # (auto) 0 10 ^3/uL (0-0.2); Basophils % (auto) 0.2 % (0.0-2.0); Eosinophils # (auto) 0.3 10 ^3/uL (0-0.8); Eosinophils % (auto) 3.5 % (0.0-7.0); Hematocrit 37.6 % (41.0-53.0); Hemoglobin 12.8 g/dL (13.5-17.5); Lymphocytes # (auto) 1.8 10 ^3/uL (0.4-5.4); Lymphocytes % (auto) 19.4 % (10.0-50.0); Mean Corpuscular Hemoglobin 28.4 pg (28.0-32.0); Mean Corpuscular Volume 83.5 fL (80.0-100.0); Monocytes # (auto) 0.5 10 ^3/uL (0-1.3); Monocytes % (auto) 5.1 % (0.0-12.0); Neutrophils # (auto) 6.7 10 ^3/uL (1.6-8.6); Neutrophils % (auto) 71.8 % (37.0-80.0); Nucleated Red Blood Cells % 0.1 %; Red Cell Distribution Width 14.5 % (11.8-14.3); White Blood Cell 9.3 10^3/uL (4.4-10.8)
[2023-04-23 10:10] LABS: Urine Bacteria NONE SEEN /hpf (None Seen); Urine Blood Negative /uL (Negative); Urine Clarity Clear (Clear); Urine Color Yellow (Yellow); Urine Hyaline Cast FEW /lpf (0 - 2); Urine Mucus FEW (None Seen); Urine Protein, UAD TRACE (Negative); Urine Specific Gravity 1.025 (1.001-1.035); Urine Urobilinogen Normal (Negative); Urine WBC 13 /hpf (0 - 3); Urine pH 5.5 (5.0-8.0)
[2023-04-23 10:23] LABS: Alanine Aminotransferase 17 U/L (7-40); Alkaline Phosphatase 101 U/L (46-116); Anion Gap 8 (5-15); BUN/Creatinine Ratio 17.9 (10.0-20.0); Blood Urea Nitrogen 22 mg/dL (9-23); Calcium 9.5 mg/dL (8.5-10.1); Carbon Dioxide 27 mmol/L (20-30); Chloride 104 mmol/L (98-107); Glucose 169 mg/dL (74-106); LDL Cholesterol 96 mg/dL (< 100); Potassium 4.6 mmol/L (3.5-5.1); Sodium 139 mmol/L (136-145); Triglycerides 170 mg/dL (< 150)
[2023-04-23 10:24] LABS: Albumin 4.8 g/dL (3.2-4.8); Aspartate Aminotransferase 13 U/L (13-40); Bilirubin, Total 0.5 mg/dL (0.2-1.0); Cholesterol 148 mg/dL (< 200); HDL Cholesterol 32 mg/dL (40-59); Total Protein 7.7 g/dL (5.7-8.2)
[2023-04-23 10:53] LABS: Creatinine, Urine 185.04 mg/dL (30.0-125.0)
[2023-04-23 11:45] LABS: Prostate Specific Antigen 1.6 ng/mL (0.0-4.0)
[2023-04-23 11:50] LABS: Free T4 (Free Thyroxine) 1.01 ng/dL (0.89-1.76)
== END | disposition home or self-care (01) ==
LOC: LAB 09:10
PROVIDERS: ATTEND Internal Medicine
DX: Z00.01 Encounter for general adult medical examination with abnormal findings (principal); Z12.5 Encounter for screening for malignant neoplasm of prostate; I12.9 Hypertensive chronic kidney disease with stage 1 through stage 4 chronic kidney disease, or unspecified chronic kidney disease; E11.22 Type 2 diabetes mellitus with diabetic chronic kidney disease; N18.2 Chronic kidney disease, stage 2 (mild); Z12.11 Encounter for screening for malignant neoplasm of colon; Z13.820 Encounter for screening for osteoporosis
CPT/HCPCS: 36415; 80053; 80061; 81001; 82043; 82306; 82570; 83036; 84153; 84439; 84443; 85025

== ENCOUNTER → 2023-05-05 | Outpatient (CLI) | payer OTHER ==
[2023-05-05 09:13] LABS: Basophils # (auto) 0 10 ^3/uL (0-0.2); Basophils % (auto) 0.3 % (0.0-2.0); Eosinophils # (auto) 0.3 10 ^3/uL (0-0.8); Eosinophils % (auto) 3.9 % (0.0-7.0); Hematocrit 37.4 % (41.0-53.0); Hemoglobin 12.7 g/dL (13.5-17.5); Lymphocytes # (auto) 1.7 10 ^3/uL (0.4-5.4); Lymphocytes % (auto) 20.5 % (10.0-50.0); Mean Corpuscular Hemoglobin 28.3 pg (28.0-32.0); Mean Corpuscular Hgb Conc. 33.9 g/dL (32.0-36.0); Mean Corpuscular Volume 83.4 fL (80.0-100.0); Monocytes # (auto) 0.6 10 ^3/uL (0-1.3); Monocytes % (auto) 6.8 % (0.0-12.0); Neutrophils # (auto) 5.7 10 ^3/uL (1.6-8.6); Neutrophils % (auto) 68.5 % (37.0-80.0); Red Blood Cells 4.48 10^6/uL (4.5-5.90); Red Cell Distribution Width 14.2 % (11.8-14.3); White Blood Cell 8.4 10^3/uL (4.4-10.8)
[2023-05-05 09:45] LABS: Alanine Aminotransferase 30 U/L (7-40); Albumin 4.6 g/dL (3.2-4.8); Alkaline Phosphatase 106 U/L (46-116); Anion Gap 8 (5-15); Aspartate Aminotransferase 17 U/L (13-40); BUN/Creatinine Ratio 16.7 (10.0-20.0); Blood Urea Nitrogen 20 mg/dL (9-23); Calcium 9.6 mg/dL (8.5-10.1); Carbon Dioxide 26 mmol/L (20-30); Chloride 104 mmol/L (98-107); Glucose 165 mg/dL (74-106); Potassium 4.8 mmol/L (3.5-5.1); Sodium 138 mmol/L (136-145)
[2023-05-05 09:46] LABS: Bilirubin, Total 0.6 mg/dL (0.2-1.0); Total Protein 7.4 g/dL (5.7-8.2)
[2023-05-05 09:53] LABS: Urine Bacteria NONE SEEN /hpf (None Seen); Urine Blood Negative /uL (Negative); Urine Clarity Clear (Clear); Urine Color Yellow (Yellow); Urine Protein, UAD TRACE (Negative); Urine Specific Gravity 1.018 (1.001-1.035); Urine Urobilinogen Normal (Negative); Urine WBC 3 /hpf (0 - 3)
== END | disposition home or self-care (01) ==
LOC: LAB 08:46
PROVIDERS: ATTEND Internal Medicine
DX: Z29.9 Encounter for prophylactic measures, unspecified (principal); E11.22 Type 2 diabetes mellitus with diabetic chronic kidney disease; N18.9 Chronic kidney disease, unspecified; I16.0 Hypertensive urgency
CPT/HCPCS: 36415; 80053; 81001; 83036; 84439; 84443; 85025

== ENCOUNTER → 2023-06-10 | Outpatient (CLI) | payer OTHER ==
[2023-06-10 10:33] LABS: Alanine Aminotransferase 20 U/L (7-40); Albumin 4.8 g/dL (3.2-4.8); Alkaline Phosphatase 105 U/L (46-116); Anion Gap 8 (5-15); Aspartate Aminotransferase 18 U/L (13-40); BUN/Creatinine Ratio 11.7 (10.0-20.0); Blood Urea Nitrogen 14 mg/dL (9-23); Calcium 9.9 mg/dL (8.5-10.1); Carbon Dioxide 26 mmol/L (20-30); Chloride 105 mmol/L (98-107); Glucose 117 mg/dL (74-106); Potassium 4.6 mmol/L (3.5-5.1); Sodium 139 mmol/L (136-145)
[2023-06-10 10:35] LABS: Bilirubin, Total 0.7 mg/dL (0.2-1.0); Total Protein 7.6 g/dL (5.7-8.2)
[2023-06-10 13:01] LABS: Urine Bacteria NONE SEEN /hpf (None Seen); Urine Blood Negative /uL (Negative); Urine Clarity Clear (Clear); Urine Color Yellow (Yellow); Urine Hyaline Cast FEW /lpf (0 - 2); Urine Mucus FEW (None Seen); Urine Protein, UAD 1+ (Negative); Urine Specific Gravity 1.027 (1.001-1.035); Urine WBC 17 /hpf (0 - 3); Urine pH 5.5 (5.0-8.0)
== END | disposition home or self-care (01) ==
LOC: LAB 09:32
PROVIDERS: ATTEND Internal Medicine
DX: Z12.11 Encounter for screening for malignant neoplasm of colon (principal); I12.9 Hypertensive chronic kidney disease with stage 1 through stage 4 chronic kidney disease, or unspecified chronic kidney disease; E11.22 Type 2 diabetes mellitus with diabetic chronic kidney disease; N18.2 Chronic kidney disease, stage 2 (mild); R82.90 Unspecified abnormal findings in urine
CPT/HCPCS: 36415; 80053; 81001

== ENCOUNTER 2023-06-18 11:39 | Emergency (ER) | payer OTHER ==
[~2023-06-18] VITALS: Ht 162.6 cm; Wt 86.0 kg
[2023-06-18 13:27] LABS: Basophils # (auto) 0 10 ^3/uL (0-0.2); Basophils % (auto) 0.1 % (0.0-2.0); Eosinophils # (auto) 0 10 ^3/uL (0-0.8); Eosinophils % (auto) 0.4 % (0.0-7.0); Hematocrit 36.8 % (41.0-53.0); Hemoglobin 12.5 g/dL (13.5-17.5); Lymphocytes # (auto) 0.6 10 ^3/uL (0.4-5.4); Mean Corpuscular Hemoglobin 28.6 pg (28.0-32.0); Mean Corpuscular Hgb Conc. 34.1 g/dL (32.0-36.0); Mean Corpuscular Volume 84.1 fL (80.0-100.0); Monocytes # (auto) 1.1 10 ^3/uL (0-1.3); Monocytes % (auto) 13.6 % (0.0-12.0); Neutrophils # (auto) 6.4 10 ^3/uL (1.6-8.6); Neutrophils % (auto) 78.9 % (37.0-80.0); Red Blood Cells 4.37 10^6/uL (4.5-5.90); Red Cell Distribution Width 14.5 % (11.8-14.3); White Blood Cell 8.2 10^3/uL (4.4-10.8)
[2023-06-18 13:32] LABS: Alanine Aminotransferase 31 U/L (7-40); Albumin 4.8 g/dL (3.2-4.8); Alkaline Phosphatase 88 U/L (46-116); Anion Gap 12 (5-15); Aspartate Aminotransferase 22 U/L (13-40); BUN/Creatinine Ratio 23.3 (10.0-20.0); Bilirubin, Total 0.7 mg/dL (0.2-1.0); Blood Urea Nitrogen 28 mg/dL (9-23); Calcium 9.4 mg/dL (8.5-10.1); Carbon Dioxide 23 mmol/L (20-30); Chloride 101 mmol/L (98-107); Glucose 131 mg/dL (74-106); Sodium 136 mmol/L (136-145); Total Protein 7.4 g/dL (5.7-8.2)
[2023-06-18 13:49] LABS: Lactic Acid w/Reflex 2.3 mmol/L (0.4-2.0)
[2023-06-18 17:37] LABS: Urine Bacteria NONE SEEN /hpf (None Seen); Urine Blood Negative /uL (Negative); Urine Clarity Clear (Clear); Urine Color Yellow (Yellow); Urine Hyaline Cast FEW /lpf (0 - 2); Urine Mucus FEW (None Seen); Urine Protein, UAD 1+ (Negative); Urine Specific Gravity 1.029 (1.001-1.035); Urine Urobilinogen Normal (Negative); Urine WBC 24 /hpf (0 - 3)
[2023-06-18 18:37] VITALS: BP 141/71; PULSE 108; RESP 20; TEMP 97.8; O2SAT 95
== END 2023-06-18 21:51 | disposition left against medical advice (07) ==
LOC: EDBD 11:39 → ER 11:39
DX: M79.605 Pain in left leg (principal); R53.1 Weakness; I10 Essential (primary) hypertension; E11.9 Type 2 diabetes mellitus without complications; E78.5 Hyperlipidemia, unspecified; Z53.29 Procedure and treatment not carried out because of patient's decision for other reasons; Z79.899 Other long term (current) drug therapy
CPT/HCPCS: 36415; 71045; 74176; 80053; 81001; 83605; 83880; 84484; 85025; 87040; 93971

== ENCOUNTER → 2023-08-19 | Outpatient (CLI) | payer OTHER ==
[2023-08-19 10:39] LABS: Basophils # (auto) 0 10 ^3/uL (0-0.2); Basophils % (auto) 0.1 % (0.0-2.0); Eosinophils # (auto) 0.4 10 ^3/uL (0-0.8); Eosinophils % (auto) 4.7 % (0.0-7.0); Hematocrit 38.1 % (41.0-53.0); Lymphocytes # (auto) 1.5 10 ^3/uL (0.4-5.4); Lymphocytes % (auto) 16.9 % (10.0-50.0); Mean Corpuscular Hemoglobin 28.3 pg (28.0-32.0); Mean Corpuscular Hgb Conc. 34.2 g/dL (32.0-36.0); Mean Corpuscular Volume 82.8 fL (80.0-100.0); Monocytes # (auto) 0.7 10 ^3/uL (0-1.3); Monocytes % (auto) 7.4 % (0.0-12.0); Neutrophils # (auto) 6.3 10 ^3/uL (1.6-8.6); Neutrophils % (auto) 70.9 % (37.0-80.0); Red Cell Distribution Width 14.1 % (11.8-14.3); White Blood Cell 8.9 10^3/uL (4.4-10.8)
[2023-08-19 11:17] LABS: Urine Bacteria NONE SEEN /hpf (None Seen); Urine Blood Negative /uL (Negative); Urine Clarity HAZY (Clear); Urine Color Yellow (Yellow); Urine Hyaline Cast MOD /lpf (0 - 2); Urine Mucus FEW (None Seen); Urine Protein, UAD 1+ (Negative); Urine Specific Gravity 1.026 (1.001-1.035); Urine WBC 19 /hpf (0 - 3); Urine pH 5.5 (5.0-8.0)
[2023-08-19 11:18] LABS: Alanine Aminotransferase 18 U/L (7-40); Albumin 4.9 g/dL (3.2-4.8); Alkaline Phosphatase 112 U/L (46-116); Anion Gap 8 (5-15); Aspartate Aminotransferase 19 U/L (13-40); BUN/Creatinine Ratio 12.3 (10.0-20.0); Bilirubin, Total 0.7 mg/dL (0.2-1.0); Blood Urea Nitrogen 16 mg/dL (9-23); Calcium 9.9 mg/dL (8.5-10.1); Carbon Dioxide 27 mmol/L (20-30); Chloride 104 mmol/L (98-107); Glucose 203 mg/dL (74-106); Potassium 4.8 mmol/L (3.5-5.1); Sodium 139 mmol/L (136-145); Total Protein 7.7 g/dL (5.7-8.2)
[2023-08-19 11:37] LABS: Prostate Specific Antigen 1.31 ng/mL (0.0-4.0)
[2023-08-19 11:41] LABS: T3 Total 1.18 ng/mL (0.60-1.81)
[2023-08-19 11:42] LABS: Free T4 (Free Thyroxine) 1.14 ng/dL (0.89-1.76)
== END | disposition home or self-care (01) ==
LOC: LAB 10:11
PROVIDERS: ATTEND Nurse Practitioner Gerontology
DX: Z00.01 Encounter for general adult medical examination with abnormal findings (principal); D64.9 Anemia, unspecified; R94.4 Abnormal results of kidney function studies; E11.22 Type 2 diabetes mellitus with diabetic chronic kidney disease; E11.69 Type 2 diabetes mellitus with other specified complication; N18.2 Chronic kidney disease, stage 2 (mild); I12.9 Hypertensive chronic kidney disease with stage 1 through stage 4 chronic kidney disease, or unspecified chronic kidney disease; E78.2 Mixed hyperlipidemia
CPT/HCPCS: 36415; 80053; 81001; 83036; 84153; 84439; 84480; 85025; 87086

== ENCOUNTER → 2023-09-08 | Outpatient (CLI) | payer OTHER ==
[2023-09-08 10:02] LABS: Urine Bacteria FEW /hpf (None Seen); Urine Blood Negative /uL (Negative); Urine Clarity Clear (Clear); Urine Color Colorless (Yellow); Urine Protein, UAD Negative (Negative); Urine Specific Gravity 1.007 (1.001-1.035); Urine Urobilinogen Normal (Negative); Urine WBC 5 /hpf (0 - 3); Urine pH 5.5 (5.0-8.0)
[2023-09-08 10:33] LABS: Alanine Aminotransferase 26 U/L (7-40); Albumin 4.7 g/dL (3.2-4.8); Alkaline Phosphatase 102 U/L (46-116); Anion Gap 7 (5-15); Aspartate Aminotransferase 26 U/L (13-40); BUN/Creatinine Ratio 14.2 (10.0-20.0); Bilirubin, Total 0.5 mg/dL (0.2-1.0); Blood Urea Nitrogen 16 mg/dL (9-23); Calcium 9.9 mg/dL (8.5-10.1); Carbon Dioxide 28 mmol/L (20-30); Chloride 101 mmol/L (98-107); Cholesterol 123 mg/dL (< 200); Glucose 180 mg/dL (74-106); HDL Cholesterol 26 mg/dL (40-59); LDL Cholesterol 76 mg/dL (< 100); Potassium 4.8 mmol/L (3.5-5.1); Sodium 136 mmol/L (136-145); Total Protein 7.7 g/dL (5.7-8.2); Triglycerides 168 mg/dL (< 150)
[2023-09-08 10:35] LABS: Free T3 3.45 pg/mL (2.3-4.2); T3 Total 1.21 ng/mL (0.60-1.81)
[2023-09-08 10:36] LABS: Free T4 (Free Thyroxine) 1.05 ng/dL (0.89-1.76)
== END | disposition home or self-care (01) ==
LOC: LAB 09:27
PROVIDERS: ATTEND Nurse Practitioner Gerontology
DX: E11.22 Type 2 diabetes mellitus with diabetic chronic kidney disease (principal); N18.31 Chronic kidney disease, stage 3a; R94.4 Abnormal results of kidney function studies; D64.9 Anemia, unspecified; E11.69 Type 2 diabetes mellitus with other specified complication; E66.2 Morbid (severe) obesity with alveolar hypoventilation
CPT/HCPCS: 36415; 80053; 80061; 81001; 83036; 84439; 84443; 84480; 84481; 87086

== ENCOUNTER 2023-10-14 03:40 | Inpatient (IN) | payer OTHER ==
[~2023-10-14] VITALS: Ht 162.6 cm; Wt 81.5 kg
[2023-10-14] VITALS (7 sets, daily range): BP systolic 130–149; BP diastolic 58–74; PULSE 73–80; RESP 16–20; TEMP 98.4–100.9; O2SAT 93–96
[~2023-10-14 03:40] MED LIST changes: +CIPR-173 PO; -GLIP5TAB12 PO; +GLIP5TAB21 PO; +LOSA-534 PO; -LOSA50TA46 PO
[2023-10-14] MEDS ORDERED: DEXTROSE (50%) 50ML SYRG IV PRN (05:15)
[2023-10-14] MEDS ORDERED: ACETAMINOPHEN 325 MG TAB PO PRN (05:15)
[2023-10-14] MEDS ORDERED: ONDANSETRON HCL 4 MG/2 ML VIAL IV PRN (05:15)
[2023-10-14] MEDS: ACCU-CHEK COMFORT CURVE STRIP VI SCH (06:17)
[2023-10-14] MEDS: InsuLIN REG 1unit/0.01ml Soln (100units/ml) SC SCH (06:18)
[2023-10-14 07:20] LABS: Urine Bacteria None Seen /hpf (None Seen)
[2023-10-14 07:47] LABS: Urine Blood 2+ /uL (Negative); Urine Clarity Turbid (Clear); Urine Protein, UAD 1+ (Negative); Urine Specific Gravity 1.012 (1.001-1.035); Urine Urobilinogen 2 mg/dL (Negative); Urine WBC 904 /hpf (0 - 3); Urine WBC Clumps PRESENT /hpf (None Seen); Urine pH 6.5 (5.0-9.0)
[2023-10-14 07:48] LABS: Urine Color Straw (Yellow)
[2023-10-14 08:13] LABS: Basophils # (auto) 0 10 ^3/uL (0-0.2); Basophils % (auto) 0.1 % (0.0-2.0); Eosinophils # (auto) 0 10 ^3/uL (0-0.8); Eosinophils % (auto) 0.3 % (0.0-7.0); Hematocrit 33.3 % (41.0-53.0); Hemoglobin 11.1 g/dL (13.5-17.5); Lymphocytes # (auto) 0.9 10 ^3/uL (0.4-5.4); Lymphocytes % (auto) 7.2 % (10.0-50.0); Mean Corpuscular Hemoglobin 27.3 pg (28.0-32.0); Mean Corpuscular Hgb Conc. 33.2 g/dL (32.0-36.0); Mean Corpuscular Volume 82.3 fL (80.0-100.0); Monocytes # (auto) 1.6 10 ^3/uL (0-1.3); Monocytes % (auto) 12.8 % (0.0-12.0); Neutrophils # (auto) 10.1 10 ^3/uL (1.6-8.6); Neutrophils % (auto) 79.6 % (37.0-80.0); Red Blood Cells 4.05 10^6/uL (4.5-5.90); Red Cell Distribution Width 14.8 % (11.8-14.3); White Blood Cell 12.7 10^3/uL (4.4-10.8)
[2023-10-14 08:34] LABS: Alanine Aminotransferase 12 U/L (7-40); Albumin 3.6 g/dL (3.2-4.8); Alkaline Phosphatase 89 U/L (46-116); Anion Gap 6 (5-15); Aspartate Aminotransferase 14 U/L (13-40); BUN/Creatinine Ratio 23.7 (10.0-20.0); Blood Urea Nitrogen 27 mg/dL (9-23); Calcium 8.4 mg/dL (8.5-10.1); Carbon Dioxide 24 mmol/L (20-30); Chloride 105 mmol/L (98-107); Glucose 180 mg/dL (74-106); Potassium 3.9 mmol/L (3.5-5.1); Sodium 135 mmol/L (136-145)
[2023-10-14] MEDS: ASPirin 81 mg TAB PO SCH (09:46)
[2023-10-14] MEDS: cefTRIAXone 1GM/50ML D5W 50 ML IV SCH (09:47)
[2023-10-14] MEDS: ENOXAPARIN SOD 40 MG/0.4 ML SYRINGE SC SCH (09:48)
[2023-10-14] MEDS: LOSARTAN POTASSIUM 50 MG TAB PO SCH (09:48)
[2023-10-14] MEDS: SODIUM CHLORIDE 0.9% 1,000 ML IV ONE (10:45)
[2023-10-14 12:55] LABS: Erythrocyte Sedimentation Rate 58 mm/hr (0-20)
[2023-10-14] MEDS: TAMSULOSIN HYDROCHLORIDE 0.4 MG CAP PO SCH (17:42)
[2023-10-15] VITALS (7 sets, daily range): BP systolic 135–167; BP diastolic 55–70; PULSE 64–92; RESP 14–18; TEMP 36.7; O2SAT 94–96
[2023-10-15 06:19] LABS: Basophils # (auto) 0 10 ^3/uL (0-0.2); Basophils % (auto) 0.3 % (0.0-2.0); Eosinophils # (auto) 0.3 10 ^3/uL (0-0.8); Hematocrit 28.6 % (41.0-53.0); Hemoglobin 9.8 g/dL (13.5-17.5); Lymphocytes # (auto) 1.8 10 ^3/uL (0.4-5.4); Lymphocytes % (auto) 19.7 % (10.0-50.0); Mean Corpuscular Hgb Conc. 34.1 g/dL (32.0-36.0); Mean Corpuscular Volume 82.2 fL (80.0-100.0); Monocytes # (auto) 1.3 10 ^3/uL (0-1.3); Monocytes % (auto) 14.1 % (0.0-12.0); Neutrophils # (auto) 5.6 10 ^3/uL (1.6-8.6); Neutrophils % (auto) 62.9 % (37.0-80.0); Red Blood Cells 3.48 10^6/uL (4.5-5.90); Red Cell Distribution Width 14.6 % (11.8-14.3)
[2023-10-15 06:28] LABS: Chloride 106 mmol/L (98-107); Potassium 3.3 mmol/L (3.5-5.1); Sodium 135 mmol/L (136-145)
[2023-10-15 06:29] LABS: Anion Gap 7 (5-15); Calcium 8.4 mg/dL (8.5-10.1); Carbon Dioxide 22 mmol/L (20-30)
[2023-10-15 06:35] LABS: Blood Urea Nitrogen 22 mg/dL (9-23); Glucose 158 mg/dL (74-106)
[2023-10-15 08:06] LABS: PSA Free 1.92 ng/mL; Prostate Specific Antigen 7.2 ng/mL (0.0-4.0)
[2023-10-15] MEDS: amLODIPine BESYLATE 5 MG TAB PO ONE (14:08)
[2023-10-15] MEDS: POTASSIUM EFFERVESENT TAB 25 MEQ PO ONE (14:08)
[2023-10-15] MEDS ORDERED: TAMS-35 PO (14:15)
[2023-10-15] MEDS ORDERED: CEFD300C2 PO (14:15)
[2023-10-15] MEDS ORDERED: GLIM4TAB42 PO (15:44)
[2023-10-15] MEDS ORDERED: CICL8SOL21 TOP (15:44)
[2023-10-15] MEDS ORDERED: ATOR-507 PO (15:44)
[2023-10-15] MEDS ORDERED: METO-289 PO (15:44)
[2023-10-15] MEDS ORDERED: ECON1CRE6 TOP (15:44)
[2023-10-15] MEDS ORDERED: INSUINJ37 SC (15:44)
[2023-10-15] MEDS ORDERED: ASPI81CH59 PO (15:44)
[2023-10-15] MEDS ORDERED: LOSA-535 PO (15:44)
[2023-10-15] MEDS ORDERED: CHOL100047 PO (15:44)
[2023-10-15] MEDS ORDERED: LACT12LO26 TOP (15:44)
[2023-10-15] MEDS ORDERED: AMLO1TAB22 PO (15:44)
[2023-10-16] MEDS ORDERED: amLODIPine BESYLATE 5 MG TAB PO SCH (10:00)
== END 2023-10-15 16:55 | disposition home or self-care (01) | DRG 871 ==
LOC: EAST 03:40
PROVIDERS: ADMIT Nurse Practitioner; ATTEND Nurse Practitioner Acute Care
DX: A41.9 Sepsis, unspecified organism (principal); G93.41 Metabolic encephalopathy; N10 Acute pyelonephritis; E11.9 Type 2 diabetes mellitus without complications; E78.5 Hyperlipidemia, unspecified; I10 Essential (primary) hypertension; E66.9 Obesity, unspecified; N30.91 Cystitis, unspecified with hematuria; N40.0 Benign prostatic hyperplasia without lower urinary tract symptoms; Z68.30 Body mass index [BMI] 30.0-30.9, adult
CPT/HCPCS: 36415; 80048; 80053; 81001; 82962; 83036; 84154; 84443; 84484; 85025; 85652; 87081; 87086; G0378; J1815

== ENCOUNTER 2023-10-22 11:54 | Emergency (ER) | payer OTHER ==
[~2023-10-22] VITALS: Ht 134.6 cm; Wt 80.0 kg
[~2023-10-22 11:54] MED LIST changes: +AMLO1TAB22 PO; -ASPI-325 PO; +ASPI81CH59 PO; +ATOR-507 PO; +CEFD300C2 PO; +CHOL100047 PO; +CICL8SOL21 TOP; -DEXT1SYP9 PO; +ECON1CRE6 TOP; +GLIM4TAB42 PO; -GLUC-245 XX; +INSUINJ37 SC; +LACT12LO26 TOP; -LANC-634; -LOSA-534 PO; +LOSA-535 PO; +METO-289 PO; +TAMS-35 PO
[2023-10-22 12:22] VITALS: BP 147/70; RESP 18; O2SAT 99
[2023-10-22 13:15] VITALS: PULSE 79
[2023-10-22 13:54] LABS: Basophils # (auto) 0 10 ^3/uL (0-0.2); Basophils % (auto) 0.1 % (0.0-2.0); Eosinophils # (auto) 0.3 10 ^3/uL (0-0.8); Eosinophils % (auto) 4.6 % (0.0-7.0); Hematocrit 35.6 % (41.0-53.0); Hemoglobin 12.1 g/dL (13.5-17.5); Lymphocytes # (auto) 0.9 10 ^3/uL (0.4-5.4); Lymphocytes % (auto) 15.7 % (10.0-50.0); Mean Corpuscular Hemoglobin 27.9 pg (28.0-32.0); Monocytes # (auto) 0.5 10 ^3/uL (0-1.3); Monocytes % (auto) 9.1 % (0.0-12.0); Neutrophils # (auto) 4.2 10 ^3/uL (1.6-8.6); Neutrophils % (auto) 70.5 % (37.0-80.0); Red Blood Cells 4.34 10^6/uL (4.5-5.90); Red Cell Distribution Width 14.8 % (11.8-14.3)
[2023-10-22 13:59] LABS: INR 1.06 (0.9-1.15); Partial Thromboplastin Time 29.2 SEC (24.5-34.5); Prothrombin Time 11.2 sec (9.3-11.8)
[2023-10-22 14:10] LABS: Alanine Aminotransferase 34 U/L (7-40); Albumin 4.4 g/dL (3.2-4.8); Alkaline Phosphatase 108 U/L (46-116); Anion Gap 9 (5-15); Aspartate Aminotransferase 29 U/L (13-40); BUN/Creatinine Ratio 13.5 (10.0-20.0); Bilirubin, Total 0.4 mg/dL (0.2-1.0); Blood Urea Nitrogen 17 mg/dL (9-23); Calcium 9.2 mg/dL (8.5-10.1); Carbon Dioxide 25 mmol/L (20-30); Chloride 103 mmol/L (98-107); Glucose 215 mg/dL (74-106); Potassium 4.4 mmol/L (3.5-5.1); Sodium 137 mmol/L (136-145); Total Protein 7.3 g/dL (5.7-8.2)
[2023-10-22 14:32] LABS: Lactic Acid w/Reflex 2.2 mmol/L (0.4-2.0)
[2023-10-22] MEDS ORDERED: DEX4T PO (17:43)
[2023-10-22] MEDS ORDERED: DOXY100C4 PO (17:43)
[2023-10-22] MEDS ORDERED: BENZ200C64 PO (17:43)
[2023-10-22 18:42] LABS: COVID19 ANTIGEN SOFIA FIA NEGATIVE (NEGATIVE); Rapid Influenza A Negative (Negative); Rapid Influenza B Negative (Negative)
[2023-10-22 21:38] LABS: Urine Bacteria FEW /hpf (None Seen); Urine Blood Negative /uL (Negative); Urine Clarity Clear (Clear); Urine Color Yellow (Yellow); Urine Mucus FEW (None Seen); Urine Protein, UAD TRACE (Negative); Urine Urobilinogen Normal (Negative); Urine WBC 2 /hpf (0 - 3)
== END 2023-10-22 18:47 | disposition home or self-care (01) ==
LOC: ER 11:54
DX: J20.8 Acute bronchitis due to other specified organisms (principal); I10 Essential (primary) hypertension; R07.89 Other chest pain; E11.9 Type 2 diabetes mellitus without complications; E78.5 Hyperlipidemia, unspecified; Z79.4 Long term (current) use of insulin; Z79.82 Long term (current) use of aspirin; Z79.899 Other long term (current) drug therapy; Z20.822 Contact with and (suspected) exposure to COVID-19
CPT/HCPCS: 36415; 71045; 80053; 81001; 82962; 83605; 83880; 84484; 85025; 85379; 85610; 85730; 87040; 87426; 87804; 93005

== ENCOUNTER → 2024-01-13 | Outpatient (CLI) | payer OTHER ==
[~2024-01-13] MED LIST changes: +BENZ200C64 PO; +DEX4T PO; +DOXY100C4 PO
[2024-01-13 12:48] LABS: Urine Bacteria FEW /hpf (None Seen); Urine Blood Negative /uL (Negative); Urine Budding Yeast OCCASIONAL /hpf (None Seen); Urine Clarity Turbid (Clear); Urine Color Yellow (Yellow); Urine Hyaline Cast FEW /lpf (0 - 2); Urine Mucus FEW (None Seen); Urine Protein, UAD 1+ (Negative); Urine Specific Gravity 1.017 (1.001-1.035); Urine Urobilinogen Normal (Negative); Urine WBC 345 /hpf (0 - 3); Urine pH 5.5 (5.0-9.0)
== END | disposition home or self-care (01) ==
LOC: LAB 12:15
PROVIDERS: ATTEND Internal Medicine
DX: E11.21 Type 2 diabetes mellitus with diabetic nephropathy (principal); E11.22 Type 2 diabetes mellitus with diabetic chronic kidney disease; N18.30 Chronic kidney disease, stage 3 unspecified; D63.1 Anemia in chronic kidney disease; E55.9 Vitamin D deficiency, unspecified; N39.0 Urinary tract infection, site not specified; R80.9 Proteinuria, unspecified; E21.3 Hyperparathyroidism, unspecified; M10.9 Gout, unspecified
CPT/HCPCS: 81001; 87086

== ENCOUNTER 2024-01-28 18:11 | Inpatient (IN) | payer OTHER ==
[~2024-01-28] VITALS: Ht 167.6 cm; Wt 81.2 kg
[2024-01-28 18:40] VITALS: PULSE 104; RESP 18; O2SAT 94
[2024-01-28] MEDS: ONDANSETRON HCL 4 MG/2 ML VIAL IV ONE (18:53)
[2024-01-28] MEDS: SODIUM CHLORIDE 0.9% 1,000 ML IV ONE (18:53)
[2024-01-28] MEDS: CEFEPIME 2GM/50ML NS 50 ML IV ONE (18:53)
[2024-01-28] MEDS: ACETAMINOPHEN 325 MG TAB PO ONE (18:54)
[2024-01-28 19:22] LABS: Basophils # (auto) 0 10 ^3/uL (0-0.2); Basophils % (auto) 0.1 % (0.0-2.0); Eosinophils # (auto) 0 10 ^3/uL (0-0.8); Eosinophils % (auto) 0.3 % (0.0-7.0); Hematocrit 32.2 % (41.0-53.0); Hemoglobin 10.9 g/dL (13.5-17.5); Lymphocytes # (auto) 0.9 10 ^3/uL (0.4-5.4); Lymphocytes % (auto) 7.1 % (10.0-50.0); Mean Corpuscular Hemoglobin 28.1 pg (28.0-32.0); Mean Corpuscular Hgb Conc. 33.8 g/dL (32.0-36.0); Mean Corpuscular Volume 83.2 fL (80.0-100.0); Monocytes # (auto) 1.2 10 ^3/uL (0-1.3); Neutrophils % (auto) 83.5 % (37.0-80.0); Red Blood Cells 3.87 10^6/uL (4.5-5.90); Red Cell Distribution Width 15.6 % (11.8-14.3); White Blood Cell 13.1 10^3/uL (4.4-10.8)
[2024-01-28 19:40] LABS: Alanine Aminotransferase 20 U/L (7-40); Albumin 4.3 g/dL (3.2-4.8); Alkaline Phosphatase 87 U/L (46-116); Anion Gap 9 (5-15); Aspartate Aminotransferase 19 U/L (13-40); BUN/Creatinine Ratio 15.9 (10.0-20.0); Bilirubin, Total 0.8 mg/dL (0.2-1.0); Blood Urea Nitrogen 20 mg/dL (9-23); Calcium 9.3 mg/dL (8.7-10.4); Carbon Dioxide 21 mmol/L (20-30); Chloride 101 mmol/L (98-107); Glucose 257 mg/dL (74-106); Lipase 41 U/L (12-53); Potassium 4.5 mmol/L (3.5-5.1); Sodium 131 mmol/L (136-145); Total Protein 7.3 g/dL (5.7-8.2)
[2024-01-28 19:48] LABS: Lactic Acid w/Reflex 3.3 mmol/L (0.4-2.0)
[2024-01-29] VITALS (14 sets, daily range): BP systolic 127–147; BP diastolic 65–91; PULSE 62–87; RESP 16–21; TEMP 98–99.2; O2SAT 94–99
[2024-01-29] MEDS ORDERED: MORPHINE SULFATE INJ 2 MG/ml SYRG IV PRN
[2024-01-29] MEDS ORDERED: hydrALAZINE HCL 20 MG/ML VL IV PRN
[2024-01-29] MEDS ORDERED: DEXTROSE (50%) 50ML SYRG IV PRN
[2024-01-29] MEDS ORDERED: NITROGLYCERIN 0.4 MG SL TAB SL PRN
[2024-01-29] MEDS ORDERED: DOCUSATE SOD 100 MG CAP PO PRN
[2024-01-29] MEDS ORDERED: HYDROcodone-ACET 5/325MG TAB PO PRN
[2024-01-29] MEDS ORDERED: ONDANSETRON HCL 4 MG/2 ML VIAL IV PRN
[2024-01-29] MEDS: SODIUM CHLORIDE 0.9% 1,000 ML IV SCH (00:20)
[2024-01-29 05:54] LABS: Albumin 3.9 g/dL (3.2-4.8); Alkaline Phosphatase 74 U/L (46-116); Anion Gap 10 (5-15); Aspartate Aminotransferase 17 U/L (13-40); Blood Urea Nitrogen 18 mg/dL (9-23); Carbon Dioxide 22 mmol/L (20-30); Chloride 102 mmol/L (98-107); Glucose 134 mg/dL (74-106); Sodium 134 mmol/L (136-145)
[2024-01-29 05:55] LABS: Bilirubin, Total 0.9 mg/dL (0.2-1.0); Total Protein 6.7 g/dL (5.7-8.2)
[2024-01-29 06:11] LABS: Alanine Aminotransferase 17 U/L (7-40)
[2024-01-29] MEDS: ACCU-CHEK COMFORT CURVE STRIP VI SCH (06:30)
[2024-01-29 06:33] LABS: Basophils # (auto) 0 10 ^3/uL (0-0.2); Basophils % (auto) 0.2 % (0.0-2.0); Eosinophils # (auto) 0 10 ^3/uL (0-0.8); Eosinophils % (auto) 0.3 % (0.0-7.0); Hematocrit 29.3 % (41.0-53.0); Hemoglobin 10.1 g/dL (13.5-17.5); Lymphocytes # (auto) 1.2 10 ^3/uL (0.4-5.4); Lymphocytes % (auto) 10.1 % (10.0-50.0); Mean Corpuscular Hemoglobin 28.7 pg (28.0-32.0); Mean Corpuscular Hgb Conc. 34.4 g/dL (32.0-36.0); Mean Corpuscular Volume 83.4 fL (80.0-100.0); Monocytes # (auto) 1.3 10 ^3/uL (0-1.3); Monocytes % (auto) 11.1 % (0.0-12.0); Neutrophils # (auto) 9.3 10 ^3/uL (1.6-8.6); Neutrophils % (auto) 78.3 % (37.0-80.0); Red Blood Cells 3.52 10^6/uL (4.5-5.90); Red Cell Distribution Width 15.5 % (11.8-14.3); White Blood Cell 11.8 10^3/uL (4.4-10.8)
[2024-01-29] MEDS: InsuLIN REG 1unit/0.01ml Soln (100units/ml) SC SCH ×2 (06:39→21:28)
[2024-01-29] MEDS: CEFEPIME 1GM/ 50ML 50 ML IV SCH (10:11)
[2024-01-29] MEDS: ASPirin 81 mg TAB PO SCH (10:11)
[2024-01-29] MEDS: FAMOTIDINE (10MG/ML) 2ML VL IV SCH (10:12)
[2024-01-29] MEDS: IPRATROPIUM BROM 0.5 MG/2.5ML INH SOL NEB ONE (10:27)
[2024-01-29] MEDS: ALBUTEROL SULF 2.5 MG/0.5ML(0.5%) NEB SOLN NEB ONE (10:27)
[2024-01-29 11:08] LABS: Urine Bacteria None Seen /hpf (None Seen)
[2024-01-29 11:26] LABS: Urine Blood TRACE /uL (Negative); Urine Budding Yeast OCCASIONAL /hpf (None Seen); Urine Clarity Turbid (Clear); Urine Color Light-Yellow (Yellow); Urine Protein, UAD TRACE (Negative); Urine Specific Gravity 1.015 (1.001-1.035); Urine Urobilinogen Normal (Negative); Urine WBC 163 /hpf (0 - 3)
[2024-01-29 11:35] LABS: Amphetamine Screen, Urine Neg (NEGATIVE); Barbiturate Scree,Urine Neg (NEGATIVE); Benzodiazephine Screen, Urine Neg (NEGATIVE); Cocaine Screen, Urine Neg (NEGATIVE); Opiate Scree,Urine Neg (NEGATIVE); Phencyclidine Screen, Urine Neg (NEGATIVE)
[2024-01-29 11:36] LABS: Cannabinoid Screen, Urine Neg (NEGATIVE)
[2024-01-29] MEDS: PIPERACILLIN-TAZOB 3.375GM 100 ML IV SCH (14:15)
[2024-01-29] MEDS: LOSARTAN POTASSIUM 50 MG TAB PO ONE (16:15)
[2024-01-29] MEDS: ATORVASTATIN 20 MG TAB PO SCH (16:15)
[2024-01-29] MEDS ORDERED: ALBUTEROL SULF 2.5 MG/0.5ML(0.5%) NEB SOLN NEB PRN (16:30)
[2024-01-29] MEDS ORDERED: IPRATROPIUM BROM 0.5 MG/2.5ML INH SOL NEB PRN (16:30)
[2024-01-29] MEDS: INSULIN LANTUS (GLARGINE) 1 /0.01ml (100units/ml) SC SCH (21:28)
[2024-01-29] MEDS ORDERED: ATORVASTATIN 20 MG TAB PO SCH (22:00)
[2024-01-30] VITALS (11 sets, daily range): BP systolic 114–146; BP diastolic 62–81; PULSE 72–111; RESP 16–20; TEMP 98.2–103.1; O2SAT 95–98
[2024-01-30 01:14] LABS: COVID19 ANTIGEN SOFIA FIA NEGATIVE (NEGATIVE); Rapid Influenza A Negative (Negative); Rapid Influenza B Negative (Negative)
[2024-01-30 06:43] LABS: Basophils # (auto) 0 10 ^3/uL (0-0.2); Basophils % (auto) 0.1 % (0.0-2.0); Eosinophils # (auto) 0 10 ^3/uL (0-0.8); Eosinophils % (auto) 0.4 % (0.0-7.0); Hematocrit 29.4 % (41.0-53.0); Hemoglobin 10.4 g/dL (13.5-17.5); Lymphocytes # (auto) 0.8 10 ^3/uL (0.4-5.4); Lymphocytes % (auto) 7.8 % (10.0-50.0); Mean Corpuscular Hemoglobin 28.9 pg (28.0-32.0); Mean Corpuscular Hgb Conc. 35.5 g/dL (32.0-36.0); Mean Corpuscular Volume 81.6 fL (80.0-100.0); Monocytes # (auto) 0.9 10 ^3/uL (0-1.3); Monocytes % (auto) 8.5 % (0.0-12.0); Neutrophils # (auto) 8.8 10 ^3/uL (1.6-8.6); Neutrophils % (auto) 83.2 % (37.0-80.0); White Blood Cell 10.6 10^3/uL (4.4-10.8)
[2024-01-30 06:57] LABS: Chloride 101 mmol/L (98-107); Sodium 133 mmol/L (136-145)
[2024-01-30 06:58] LABS: Anion Gap 8 (5-15); Carbon Dioxide 24 mmol/L (20-30)
[2024-01-30 07:03] LABS: BUN/Creatinine Ratio 15.2 (10.0-20.0); Blood Urea Nitrogen 20 mg/dL (9-23); Glucose 182 mg/dL (74-106)
[2024-01-30] MEDS: EMPAGLIFLOZIN 10 MG TAB PO SCH (09:59)
[2024-01-30] MEDS: FUROSEMIDE 40 MG/4 ML VIAL IV ONE (10:01)
[2024-01-30] MEDS: LOSARTAN POTASSIUM 50 MG TAB PO SCH (10:02)
[2024-01-30] MEDS: METOPROLOL SUCCINATE XL 50 MG TAB PO SCH (10:03)
[2024-01-30] MEDS: GLYCOPYRROLATE 0.2 MG/ML 1ML VIAL IV ONE (15:29)
[2024-01-30] MEDS: INSULIN LANTUS (GLARGINE) 1 /0.01ml (100units/ml) SC SCH (17:24)
[2024-01-30 22:03] LABS: Chloride 99 mmol/L (98-107); Potassium 4.1 mmol/L (3.5-5.1)
[2024-01-30 22:04] LABS: Anion Gap 8 (5-15); Calcium 8.9 mg/dL (8.7-10.4); Carbon Dioxide 21 mmol/L (20-30)
[2024-01-30 22:09] LABS: BUN/Creatinine Ratio 13.3 (10.0-20.0); Blood Urea Nitrogen 22 mg/dL (9-23); Glucose 223 mg/dL (74-106); Magnesium 1.7 mg/dL (1.6-2.6)
[2024-01-30 22:16] LABS: Sodium 128 mmol/L (136-145)
[2024-01-31] VITALS (9 sets, daily range): BP systolic 119–133; BP diastolic 56–69; PULSE 62–83; RESP 16–19; TEMP 98–98.6; O2SAT 93–98
[2024-01-31] MEDS: ERTAPENEM SOD INJ 1 GM in SODIUM CHL 0.9% 50 ML IV SCH (12:55)
[2024-01-31] MEDS: INSULIN LANTUS (GLARGINE) 1 /0.01ml (100units/ml) SC SCH (18:24)
[2024-02-01] VITALS (7 sets, daily range): BP systolic 106–149; BP diastolic 64–77; PULSE 69–107; RESP 16–19; TEMP 97.5–98.7; O2SAT 93–95
[2024-02-01] MEDS: ACETAMINOPHEN 325 MG TAB PO PRN (02:11)
[2024-02-01 06:02] LABS: Calcium 9.2 mg/dL (8.7-10.4); Chloride 101 mmol/L (98-107); Potassium 3.6 mmol/L (3.5-5.1)
[2024-02-01 06:03] LABS: Anion Gap 12 (5-15); Carbon Dioxide 22 mmol/L (20-30)
[2024-02-01 06:06] LABS: Basophils # (auto) 0 10 ^3/uL (0-0.2); Basophils % (auto) 0.1 % (0.0-2.0); Eosinophils # (auto) 0.1 10 ^3/uL (0-0.8); Hematocrit 30.9 % (41.0-53.0); Hemoglobin 10.6 g/dL (13.5-17.5); Lymphocytes # (auto) 0.4 10 ^3/uL (0.4-5.4); Lymphocytes % (auto) 4.7 % (10.0-50.0); Mean Corpuscular Hemoglobin 28.2 pg (28.0-32.0); Mean Corpuscular Hgb Conc. 34.4 g/dL (32.0-36.0); Monocytes # (auto) 0.6 10 ^3/uL (0-1.3); Monocytes % (auto) 7.5 % (0.0-12.0); Neutrophils # (auto) 7.5 10 ^3/uL (1.6-8.6); Neutrophils % (auto) 86.7 % (37.0-80.0); Red Blood Cells 3.77 10^6/uL (4.5-5.90); Red Cell Distribution Width 15.3 % (11.8-14.3); White Blood Cell 8.6 10^3/uL (4.4-10.8)
[2024-02-01 06:09] LABS: BUN/Creatinine Ratio 18.1 (10.0-20.0); Blood Urea Nitrogen 27 mg/dL (9-23); Glucose 163 mg/dL (74-106)
[2024-02-01 06:26] LABS: Sodium 135 mmol/L (136-145)
[2024-02-02] VITALS (9 sets, daily range): BP systolic 114–145; BP diastolic 61–69; PULSE 62–110; RESP 16–20; TEMP 97.6–99.7; O2SAT 93–97
[2024-02-02 06:00] LABS: Anion Gap 12 (5-15); Carbon Dioxide 22 mmol/L (20-30); Chloride 102 mmol/L (98-107); Potassium 3.6 mmol/L (3.5-5.1); Sodium 136 mmol/L (136-145)
[2024-02-02 06:02] LABS: Calcium 9.2 mg/dL (8.7-10.4)
[2024-02-02 06:06] LABS: BUN/Creatinine Ratio 19.8 (10.0-20.0); Blood Urea Nitrogen 26 mg/dL (9-23); Glucose 139 mg/dL (74-106)
[2024-02-02 06:19] LABS: Basophils # (auto) 0 10 ^3/uL (0-0.2); Basophils % (auto) 0.2 % (0.0-2.0); Eosinophils # (auto) 0.1 10 ^3/uL (0-0.8); Eosinophils % (auto) 1.7 % (0.0-7.0); Hematocrit 30.4 % (41.0-53.0); Hemoglobin 10.5 g/dL (13.5-17.5); Lymphocytes # (auto) 0.4 10 ^3/uL (0.4-5.4); Lymphocytes % (auto) 5.2 % (10.0-50.0); Mean Corpuscular Hemoglobin 28.2 pg (28.0-32.0); Mean Corpuscular Hgb Conc. 34.7 g/dL (32.0-36.0); Mean Corpuscular Volume 81.3 fL (80.0-100.0); Monocytes # (auto) 0.3 10 ^3/uL (0-1.3); Monocytes % (auto) 4.7 % (0.0-12.0); Neutrophils # (auto) 6.5 10 ^3/uL (1.6-8.6); Neutrophils % (auto) 88.2 % (37.0-80.0); Red Blood Cells 3.74 10^6/uL (4.5-5.90); Red Cell Distribution Width 15.2 % (11.8-14.3); White Blood Cell 7.3 10^3/uL (4.4-10.8)
[2024-02-02 12:26] LABS: Base Excess -2.2 mmol/L (-2.0-2.0)
[2024-02-02] MEDS: MEROPENEM 1GM IVPB 50 ML IV SCH (15:26)
[2024-02-03] VITALS (9 sets, daily range): BP systolic 114–146; BP diastolic 57–83; PULSE 62–88; RESP 16–18; TEMP 97.3–98.4; O2SAT 92–96
[2024-02-03 06:35] LABS: Basophils # (auto) 0 10 ^3/uL (0-0.2); Basophils % (auto) 0.1 % (0.0-2.0); Eosinophils # (auto) 0.4 10 ^3/uL (0-0.8); Hemoglobin 10.3 g/dL (13.5-17.5); Lymphocytes # (auto) 1.5 10 ^3/uL (0.4-5.4); Lymphocytes % (auto) 15.5 % (10.0-50.0); Mean Corpuscular Hemoglobin 28.2 pg (28.0-32.0); Mean Corpuscular Hgb Conc. 34.4 g/dL (32.0-36.0); Mean Corpuscular Volume 81.8 fL (80.0-100.0); Monocytes # (auto) 1.2 10 ^3/uL (0-1.3); Neutrophils # (auto) 6.4 10 ^3/uL (1.6-8.6); Neutrophils % (auto) 67.4 % (37.0-80.0); Nucleated Red Blood Cells % 0.1 %; Red Blood Cells 3.67 10^6/uL (4.5-5.90); Red Cell Distribution Width 15.4 % (11.8-14.3); White Blood Cell 9.6 10^3/uL (4.4-10.8)
[2024-02-03 06:38] LABS: Calcium 9.1 mg/dL (8.7-10.4); Chloride 103 mmol/L (98-107); Sodium 136 mmol/L (136-145)
[2024-02-03 06:39] LABS: Anion Gap 10 (5-15); Carbon Dioxide 23 mmol/L (20-30)
[2024-02-03 06:44] LABS: Blood Urea Nitrogen 25 mg/dL (9-23); Glucose 140 mg/dL (74-106)
[2024-02-03] MEDS: CYANOCOBALAMIN (B-12) 1000 MCG/1 ML VIAL IM ONE ×2 (12:10→14:35)
[2024-02-04] VITALS (8 sets, daily range): BP systolic 115–151; BP diastolic 49–74; PULSE 59–86; RESP 16–20; TEMP 97.7–98.3; O2SAT 91–95
[2024-02-04] MEDS: MEROPENEM 1GM IVPB 50 ML IV SCH (03:30)
[2024-02-04 05:38] LABS: Basophils # (auto) 0 10 ^3/uL (0-0.2); Basophils % (auto) 0.1 % (0.0-2.0); Eosinophils # (auto) 0.3 10 ^3/uL (0-0.8); Eosinophils % (auto) 3.5 % (0.0-7.0); Hematocrit 29.1 % (41.0-53.0); Hemoglobin 10.2 g/dL (13.5-17.5); Lymphocytes # (auto) 1.3 10 ^3/uL (0.4-5.4); Mean Corpuscular Hemoglobin 28.7 pg (28.0-32.0); Mean Corpuscular Hgb Conc. 35.1 g/dL (32.0-36.0); Mean Corpuscular Volume 81.6 fL (80.0-100.0); Monocytes # (auto) 0.9 10 ^3/uL (0-1.3); Monocytes % (auto) 9.5 % (0.0-12.0); Neutrophils # (auto) 6.9 10 ^3/uL (1.6-8.6); Neutrophils % (auto) 72.9 % (37.0-80.0); Red Blood Cells 3.57 10^6/uL (4.5-5.90); Red Cell Distribution Width 15.2 % (11.8-14.3); White Blood Cell 9.4 10^3/uL (4.4-10.8)
[2024-02-04 05:49] LABS: Chloride 105 mmol/L (98-107); Potassium 4.2 mmol/L (3.5-5.1); Sodium 137 mmol/L (136-145)
[2024-02-04 05:50] LABS: Anion Gap 9 (5-15); Calcium 8.8 mg/dL (8.7-10.4); Carbon Dioxide 23 mmol/L (20-30)
[2024-02-04 05:55] LABS: BUN/Creatinine Ratio 17.9 (10.0-20.0); Blood Urea Nitrogen 24 mg/dL (9-23); Glucose 208 mg/dL (74-106)
[2024-02-04] MEDS: CYANOCOBALAMIN 500 MCG TAB PO SCH (09:08)
[2024-02-04] MEDS ORDERED: CYANOCOBALAMIN 500 MCG TAB PO SCH (10:00)
[2024-02-05 01:00] VITALS: BP 136/67; PULSE 65; RESP 16; TEMP 97.8; O2SAT 94
[2024-02-05 05:00] VITALS: BP 131/65; PULSE 66; RESP 16; TEMP 97.9; O2SAT 94
[2024-02-05 05:19] LABS: Basophils # (auto) 0 10 ^3/uL (0-0.2); Basophils % (auto) 0.1 % (0.0-2.0); Eosinophils # (auto) 0.4 10 ^3/uL (0-0.8); Eosinophils % (auto) 3.6 % (0.0-7.0); Hematocrit 30.2 % (41.0-53.0); Hemoglobin 10.7 g/dL (13.5-17.5); Lymphocytes # (auto) 1.8 10 ^3/uL (0.4-5.4); Lymphocytes % (auto) 16.6 % (10.0-50.0); Mean Corpuscular Hemoglobin 28.9 pg (28.0-32.0); Mean Corpuscular Hgb Conc. 35.4 g/dL (32.0-36.0); Mean Corpuscular Volume 81.8 fL (80.0-100.0); Monocytes % (auto) 9.2 % (0.0-12.0); Neutrophils # (auto) 7.4 10 ^3/uL (1.6-8.6); Neutrophils % (auto) 70.5 % (37.0-80.0); Red Blood Cells 3.69 10^6/uL (4.5-5.90); Red Cell Distribution Width 15.4 % (11.8-14.3); White Blood Cell 10.5 10^3/uL (4.4-10.8)
[2024-02-05 05:39] LABS: Chloride 106 mmol/L (98-107); Potassium 4.5 mmol/L (3.5-5.1); Sodium 138 mmol/L (136-145)
[2024-02-05 05:40] LABS: Anion Gap 8 (5-15); Carbon Dioxide 24 mmol/L (20-30)
[2024-02-05 05:41] LABS: Calcium 9.1 mg/dL (8.7-10.4)
[2024-02-05 05:45] LABS: BUN/Creatinine Ratio 14.3 (10.0-20.0); Blood Urea Nitrogen 19 mg/dL (9-23); Glucose 159 mg/dL (74-106)
[2024-02-05 08:00] VITALS: PULSE 66; PULSE 69; RESP 20
[2024-02-05 08:38] VITALS: BP 135/66; PULSE 66; RESP 20; TEMP 98.6; O2SAT 96
[2024-02-05 12:42] VITALS: BP 149/67; PULSE 71; RESP 20; TEMP 98.4; O2SAT 96
[2024-02-05 16:59] VITALS: BP 149/65; PULSE 75; RESP 20; TEMP 99.3; O2SAT 94
== END 2024-02-05 18:10 | DRG 871 ==
LOC: ER 18:11 → EDBD 18:11 → TELE 01-29 00:07 → TELE-WESTW 01-29 02:50 → TELE-CENTR 01-31 11:35
PROVIDERS: ADMIT Student in an Organized Health Care Education/Training Program; ATTEND Student in an Organized Health Care Education/Training Program
PROC: 05HC33Z Insertion of Infusion Device into Left Basilic Vein, Percutaneous Approach (ICD-10-PCS; principal; 2024-02-03)
PROC: B54NZZA Ultrasonography of Left Upper Extremity Veins, Guidance (ICD-10-PCS; 2024-02-03)
DX: A41.9 Sepsis, unspecified organism (principal); G93.41 Metabolic encephalopathy; J96.01 Acute respiratory failure with hypoxia; N17.0 Acute kidney failure with tubular necrosis; J18.9 Pneumonia, unspecified organism; E87.1 Hypo-osmolality and hyponatremia; N39.0 Urinary tract infection, site not specified; I50.32 Chronic diastolic (congestive) heart failure; E11.65 Type 2 diabetes mellitus with hyperglycemia; E78.5 Hyperlipidemia, unspecified; Z20.822 Contact with and (suspected) exposure to COVID-19; F17.200 Nicotine dependence, unspecified, uncomplicated; E53.8 Deficiency of other specified B group vitamins; I25.10 Atherosclerotic heart disease of native coronary artery without angina pectoris; I11.0 Hypertensive heart disease with heart failure; J01.00 Acute maxillary sinusitis, unspecified; R32 Unspecified urinary incontinence; D64.9 Anemia, unspecified; G47.33 Obstructive sleep apnea (adult) (pediatric); Z79.899 Other long term (current) drug therapy; Z79.84 Long term (current) use of oral hypoglycemic drugs; Z79.82 Long term (current) use of aspirin; Z79.4 Long term (current) use of insulin; Z83.3 Family history of diabetes mellitus
CPT/HCPCS: 36415; 36600; 70450; 71045; 71250; 76775; 80048; 80053; 80307; 81001; 82306; 82607; 82805; 82962; 83036; 83605; 83690; 83735; 84443; 84484; 85025; 87040; 87077; 87086; 87186; 87426; 87804; 93005; 93306; 93886; 94640; 97110; 97116; 97163; 97530; G0378; J0692; J1335; J1815; J2185; J2405; J2543; J3490

== ENCOUNTER → 2024-03-17 | Outpatient (CLI) | payer OTHER ==
[~2024-03-17] MED LIST changes: -CEFD300C2 PO; -CICL8SOL21 TOP; -CIPR-173 PO; -ECON1CRE6 TOP
[2024-03-17 09:30] LABS: Urine Bacteria None Seen /hpf (None Seen)
[2024-03-17 09:57] LABS: Basophils # (auto) 0 10 ^3/uL (0-0.2); Basophils % (auto) 0.2 % (0.0-2.0); Eosinophils # (auto) 0.3 10 ^3/uL (0-0.8); Eosinophils % (auto) 4.1 % (0.0-7.0); Hematocrit 35.5 % (41.0-53.0); Hemoglobin 12.2 g/dL (13.5-17.5); Lymphocytes % (auto) 23.9 % (10.0-50.0); Mean Corpuscular Hemoglobin 28.8 pg (28.0-32.0); Mean Corpuscular Hgb Conc. 34.4 g/dL (32.0-36.0); Mean Corpuscular Volume 83.8 fL (80.0-100.0); Monocytes # (auto) 0.7 10 ^3/uL (0-1.3); Monocytes % (auto) 7.9 % (0.0-12.0); Neutrophils # (auto) 5.4 10 ^3/uL (1.6-8.6); Neutrophils % (auto) 63.9 % (37.0-80.0); Platelet Count (auto) 198 10^3/uL (140-450); Red Blood Cells 4.24 10^6/uL (4.5-5.90); Red Cell Distribution Width 15.6 % (11.8-14.3); White Blood Cell 8.4 10^3/uL (4.4-10.8)
[2024-03-17 10:10] LABS: Urine Blood Negative /uL (Negative); Urine Clarity Clear (Clear); Urine Color Light-Yellow (Yellow); Urine Protein, UAD Negative (Negative); Urine Specific Gravity 1.012 (1.001-1.035); Urine Urobilinogen Normal (Negative); Urine WBC <1 /hpf (0 - 3)
[2024-03-17 10:14] LABS: Alanine Aminotransferase 23 U/L (7-40); Alkaline Phosphatase 113 U/L (46-116); Anion Gap 7 (5-15); BUN/Creatinine Ratio 14.4 (10.0-20.0); Blood Urea Nitrogen 15 mg/dL (9-23); Calcium 9.6 mg/dL (8.7-10.4); Carbon Dioxide 27 mmol/L (20-30); Chloride 105 mmol/L (98-107); Glucose 137 mg/dL (74-106); Potassium 4.3 mmol/L (3.5-5.1); Sodium 139 mmol/L (136-145)
[2024-03-17 10:16] LABS: Albumin 4.3 g/dL (3.2-4.8); Aspartate Aminotransferase 19 U/L (13-40); Bilirubin, Total 0.6 mg/dL (0.2-1.0)
== END | disposition home or self-care (01) ==
LOC: LAB 09:19
PROVIDERS: ATTEND Internal Medicine
DX: I12.9 Hypertensive chronic kidney disease with stage 1 through stage 4 chronic kidney disease, or unspecified chronic kidney disease (principal); E11.22 Type 2 diabetes mellitus with diabetic chronic kidney disease; N18.9 Chronic kidney disease, unspecified; N10 Acute pyelonephritis
CPT/HCPCS: 36415; 80053; 81001; 84153; 85025

== ENCOUNTER → 2024-03-24 | Outpatient (CLI) | payer OTHER, MEDICARE | END | disposition home or self-care (01) | LOC: LAB 09:33 | PROVIDERS: ATTEND Urology | DX: N40.1 Benign prostatic hyperplasia with lower urinary tract symptoms (principal) | CPT/HCPCS: 84153 ==

== ENCOUNTER → 2024-04-05 | Outpatient (CLI) | payer OTHER ==
[2024-04-05 10:31] LABS: Anion Gap 7 (5-15); Carbon Dioxide 27 mmol/L (20-31); Chloride 107 mmol/L (98-107); Potassium 4.2 mmol/L (3.5-5.1); Sodium 141 mmol/L (136-145)
[2024-04-05 10:32] LABS: Calcium 9.7 mg/dL (8.7-10.4)
[2024-04-05 10:34] LABS: Creatinine, Urine 68.45 mg/dL (30.0-125.0)
[2024-04-05 10:37] LABS: BUN/Creatinine Ratio 14.5 (10.0-20.0); Blood Urea Nitrogen 16 mg/dL (9-23); Glucose 157 mg/dL (74-106); Triglycerides 164 mg/dL (< 150)
[2024-04-05 10:38] LABS: LDL Cholesterol 69 mg/dL (< 100)
[2024-04-05 10:39] LABS: Cholesterol 117 mg/dL (< 200); HDL Cholesterol 31 mg/dL (40-59)
== END | disposition home or self-care (01) ==
LOC: LAB 09:10
PROVIDERS: ATTEND Internal Medicine
DX: E11.65 Type 2 diabetes mellitus with hyperglycemia (principal); E11.22 Type 2 diabetes mellitus with diabetic chronic kidney disease; N18.31 Chronic kidney disease, stage 3a; E78.49 Other hyperlipidemia; R94.4 Abnormal results of kidney function studies
CPT/HCPCS: 36415; 80048; 80061; 82043; 82570; 83036

== ENCOUNTER 2024-06-13 09:32 | Emergency (ER) | payer OTHER ==
[~2024-06-13] VITALS: Ht 165.1 cm; Wt 83.2 kg
[2024-06-13 11:28] LABS: Basophils # (auto) 0 10 ^3/uL (0-0.2); Basophils % (auto) 0.2 % (0.0-2.0); Eosinophils # (auto) 0.3 10 ^3/uL (0-0.8); Eosinophils % (auto) 2.1 % (0.0-7.0); Hematocrit 36.6 % (41.0-53.0); Hemoglobin 12.6 g/dL (13.5-17.5); Lymphocytes # (auto) 1.8 10 ^3/uL (0.4-5.4); Lymphocytes % (auto) 14.4 % (10.0-50.0); Mean Corpuscular Hemoglobin 29.2 pg (28.0-32.0); Mean Corpuscular Hgb Conc. 34.5 g/dL (32.0-36.0); Mean Corpuscular Volume 84.8 fL (80.0-100.0); Monocytes # (auto) 1.3 10 ^3/uL (0-1.3); Monocytes % (auto) 10.3 % (0.0-12.0); Neutrophils # (auto) 8.9 10 ^3/uL (1.6-8.6); Platelet Count (auto) 250 10^3/uL (140-450); Red Blood Cells 4.32 10^6/uL (4.5-5.90); Red Cell Distribution Width 14.6 % (11.8-14.3); White Blood Cell 12.2 10^3/uL (4.4-10.8)
--- NOTE | 2024-06-13 11:32 | ED.PDOC ---
History of Present Illness HPI Comments 69 y/o M, with a Hx of CK F, DM, HLD, HTN, and UTIs, presents with spouse for complaint of for urine retention and generalized weakness for 1 month, today. Both patient's spouse are Israeli speakers and required back padder. Patient states on feeling on having another UTI, again, following last, with accompan [facility] visit in 01/2024. Patient states on being Tx then with Abx. He denies having any nausea, vomiting, dysuria, fever, chills, flank pain, or other associated symptoms or modifiers at this time. Chief Complaint: Urinary Time Seen by MD: 10:05 Primary Care Provider: UNKNOWN Reviewed Notes: Nurses Notes, Medications, Allergies Allergies: Coded Allergies: NO KNOWN ALLERGIES (Unverified , 08/23/18) Home Meds Active Scripts Sulfamethoxazole W/Trimethopri (Bactrim Ds Tablet) 1 Tab Tb, 1 TAB PO BID for 10 Days, #20 TAB Prov:JB EVANS MD 06/13/24 Dexamethasone (Decadron) 4 Mg Tb, 8 MG PO DAILY for 9 Days, #18 TAB Prov:PAUL ZARCO S DO 10/22/23 Benzonatate (Benzonatate) 200 Mg Cap, 1 CAP PO TIDP PRN for 10 Days, #30 CAP Prov:PAUL ZARCO DO 10/22/23 Doxycycline Hyclate (Doxycycline Hyclate) 100 Mg Cap, 100 MG PO BID for 10 Days, #20 CAP Prov:PAUL ZARCO DO 10/22/23 Tamsulosin Hcl (Flomax) 0.4 Mg Cap, 1 CAP PO DAILY for 60 Days, #60 CAP 11 Refills Prov:CRISTIAN BUTT NP 10/15/23 Glipizide (Glipizide) 5 Mg Tab, 1 TAB PO BID, #30 TAB 3 Refills Prov:MAI KAUFMAN MD 01/14/22 Empagliflozin (Jardiance) 25 Mg Tab, 25 MG PO QAM for 30 Days, #30 TAB Prov:MAI KAUFMAN MD 01/14/22 Metformin Hydrochloride (Metformin Hcl) 1,000 Mg Tab, 1 TAB PO BID, #60 TAB 5 Refills Prov:MAI KAUFMAN MD 01/14/22 Ergocalciferol (VITAMIN D 32331 UNIT) 50,000 [place], [address] UNIT PO Q7D for 10 Days, #10 CAP Prov:KAUFMANMAI HENDRIX MD 01/14/22 Reported Medications Aspirin (Aspirin Low Dose) 81 Mg Chw, 1 TAB PO DAILY 10/15/23 Cholecalciferol (D3) 1,000 Unit Cap, 1 UNIT PO DAILY 10/15/23 Insulin Glargine (Lantus Solostar) 100 Unit/Ml Inj, 20 UNIT SC HS 10/15/23 Atorvastatin Calcium (Lipitor) 40 Mg Tab, 1 TAB PO HS 10/15/23 Lactic Acid (Ammonium Lactate) 12 % Lot, 1 TBS TOP BID Apply 1 tablespoonful to affected area twice a day. 10/15/23 Metoprolol Succinate (Metoprolol Succinate Er) 50 Mg Tab, 1 TAB PO DAILY 10/15/23 Losartan Potassium (Losartan Potassium) 100 Mg Tab, 1 TAB PO DAILY, MG 10/15/23 Amlodipine Besylate (Amlodipine Besylate) 5 Mg Tab, 10 MG PO DAILY 10/15/23 Glimepiride (Glimepiride) 4 Mg Tab, 1 TAB PO BID 10/15/23 Information Source: Patient, Spouse Mode of Arrival: Ambulatory Severity: Moderate Timing: Months Duration: Since onset Prehospital treatment: None Past Medical History PAST MEDICAL HISTORY: CKF, DM, High Lipids, HTN, UTI'S Surgical History: Denies all surgeries Family History Family History: Reviewed,noncontributory to illness Social History Smoker: Non-Smoker Alcohol: Denies ETOH Use Drugs: Denies Drug Use Lives In: Home Genitourinary: reports: others (Urinary retention, incomplete) Neurological: reports: weakness All Other Systems: Reviewed and Negative (As otherwise stated above or in HPI) Physical Exam General Appearance: No Apparent Distress, Obese HEENT: Normal ENT Inspection, Pharynx Normal, TMs Normal Neck: Full Range of Motion, Non-Tender, Normal, Normal Inspection Respiratory: Chest Non-Tender, Lungs Clear, No Accessory Muscle Use, No Respiratory Distress, Normal Breath Sounds Cardiovascular: No Edema, No JVD, No Murmur, No Gallop, Normal Peripheral Pulses, Regular Rate/Rhythm Breast Exam: Deferred Gastrointestinal: No Organomegaly, Non Tender, No Pulsatile Mass, Normal Bowel Sounds, Soft Genitalia: Deferred Pelvic: Deferred Rectal: Deferred Extremities: No calf tenderness, Normal capillary refill, Normal inspection, Normal range of motion, Non-tender, No pedal edema Musculoskeletal : Apperance: Normal Neurologic: Alert, production engineer track II-XII nml as Tested, No Motor Deficits, Normal Affect, Normal Mood, No Sensory Deficits Cerebellar Function: Normal Reflexes: Normal Skin: Dry, Normal Color, Warm Lymphatic: No Adenopathy Was a procedure done? Was a procedure done?: No Differential Dx Considerations may include: UTI, cystitis, pyelonephritis, prostate as she is, urinary obstruction X-Ray, Labs, Meds, VS Vital Signs Date Time Temp Pulse Resp B/P (MAP) Pulse Ox O2 Delivery O2 Flow Rate FiO2 06/13/24 09:49 101 06/13/24 09:42 98.6 89 16 151/76 (101) 96 Lab Test 06/13/24 11:17 06/13/24 09:42 Range/Units White Blood Count 12.2 H 4.4-10.8 10^3/uL Red Blood Count 4.32 L 4.5-5.90 10^6/uL Hemoglobin 12.6 L 13.5-17.5 g/dL Hematocrit 36.6 L 41.0-53.0 % Mean Corpuscular Volume 84.8 80.0-100.0 fL Mean Corpuscular Hemoglobin 29.2 28.0-32.0 pg Mean Corpuscular Hemoglobin Concent 34.5 32.0-36.0 g/dL Red Cell Distribution Width 14.6 H 11.8-14.3 % Platelet Count 250 140-450 10^3/uL Mean Platelet Volume 8.2 6.9-10.8 fL Neutrophils (%) (Auto) 73.0 37.0-80.0 % Lymphocytes (%) (Auto) 14.4 10.0-50.0 % Monocytes (%) (Auto) 10.3 0.0-12.0 % Eosinophils (%) (Auto) 2.1 0.0-7.0 % Basophils (%) (Auto) 0.2 0.0-2.0 % Neutrophils # (Auto) 8.9 H 1.6-8.6 10 ^3/uL Lymphocytes # (Auto) 1.8 0.4-5.4 10 ^3/uL Monocytes # (Auto) 1.3 0-1.3 10 ^3/uL Eosinophils # (Auto) 0.3 0-0.8 10 ^3/uL Basophils # (Auto) 0 0-0.2 10 ^3/uL Nucleated Red Blood Cells 0.0 % Sodium Level 134 L 136-145 mmol/L Potassium Level 4.3 3.5-5.1 mmol/L Chloride Level 101 98-107 mmol/L Carbon Dioxide Level 23 20-31 mmol/L Anion Gap 10 5-15 Blood Urea Nitrogen 26 H 9-23 mg/dL Creatinine 1.64 H 0.700-1.30 mg/dL Glomerular Filtration Rate Calc 44 >90 mL/min BUN/Creatinine Ratio 15.9 10.0-20.0 Serum Glucose 293 H 74-106 mg/dL Calcium Level 9.9 8.7-10.4 mg/dL Urine Color Yellow Yellow Urine Clarity Turbid H Clear Urine pH 7.0 5.0-9.0 Urine Specific [place] 1.020 1.001-1.035 Urine Protein 1+ H Negative Urine Ketones Negative Negative Urine Blood Negative Negative /uL Urine Nitrite Negative Negative Urine Bilirubin Negative Negative Urine Urobilinogen Normal Negative mg/dL Urine Leukocyte Esterase 3+ Negative /uL Urine RBC 4 0 - 3 /hpf Urine WBC 84 0 - 3 /hpf Urine Squamous Epithelial Cells Few <5 /hpf Urine Bacteria Mod H None Seen /hpf Urine Mucus Few None Seen Urine Glucose Normal Normal mg/dL Time of 1ST Reevaluation: 10:35 Reevaluation 1ST: Unchanged Patient Education/Counseling: Diagnosis, Treatment Family Education/Counseling: Diagnosis, Treatment, No Family Present Departure 1 Departure Time of Disposition: 16:05 Impression: Primary Impression: UTI (urinary tract infection) Additional Impression: Pyelonephritis Disposition: HOME / SELF CARE / HOMELESS Condition: Guarded e-Prescriptions Sulfamethoxazole W/Trimethopri (Bactrim Ds Tablet) 1 Tab Tb 1 TAB PO BID for 10 Days, #20 TAB Prov: JB EVANS MD 06/13/24 Critical Care Note Critical Care Time?: No Stability Stability form required: No Heart Score Heart Score: Heart Score Response (Comments) Value History N/A 0 EKG N/A 0 Age N/A 0 Risk Factors N/A 0 Troponin N/A 0 Total 0 I personally scribed for JB EVANS MD ([email or web address]) on 06/13/24 at 11:32. Electronically submitted by Gennaro Dominguez ([email or web address]). I personally scribed for JB EVANS MD ([email or web address]) on 06/13/24 at 16:08. Electronically submitted by Gennaro Doimnguez ([email or web address]). JB EVANS MD Jun 13, 2024 11:32
[2024-06-13 11:40] LABS: Chloride 101 mmol/L (98-107); Potassium 4.3 mmol/L (3.5-5.1)
[2024-06-13 11:41] LABS: Anion Gap 10 (5-15); Calcium 9.9 mg/dL (8.7-10.4); Carbon Dioxide 23 mmol/L (20-31)
[2024-06-13 11:46] LABS: BUN/Creatinine Ratio 15.9 (10.0-20.0)
[2024-06-13 11:47] LABS: Blood Urea Nitrogen 26 mg/dL (9-23); Glucose 293 mg/dL (74-106); Sodium 134 mmol/L (136-145)
[2024-06-13 15:51] LABS: Urine Bacteria MOD /hpf (None Seen); Urine Blood Negative /uL (Negative); Urine Clarity Turbid (Clear); Urine Color Yellow (Yellow); Urine Mucus FEW (None Seen); Urine Protein, UAD 1+ (Negative); Urine Urobilinogen Normal (Negative); Urine WBC 84 /hpf (0 - 3)
[2024-06-13] MEDS ORDERED: BACDST PO (16:09)
[2024-06-13 17:12] VITALS: BP 152/71; PULSE 98; RESP 20; TEMP 98.4; O2SAT 98
--- NOTE | 2024-06-15 10:09 | ECG ---
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
== END 2024-06-13 17:14 | disposition home or self-care (01) ==
LOC: ER 09:32
DX: N12 Tubulo-interstitial nephritis, not specified as acute or chronic (principal); N39.0 Urinary tract infection, site not specified; E78.5 Hyperlipidemia, unspecified; I12.9 Hypertensive chronic kidney disease with stage 1 through stage 4 chronic kidney disease, or unspecified chronic kidney disease; E11.22 Type 2 diabetes mellitus with diabetic chronic kidney disease; N18.9 Chronic kidney disease, unspecified; Z79.899 Other long term (current) drug therapy; Z79.84 Long term (current) use of oral hypoglycemic drugs
CPT/HCPCS: 36415; 80048; 81001; 85025; 93005

== ENCOUNTER → 2024-07-18 | Outpatient (CLI) | payer OTHER ==
[~2024-07-18] MED LIST changes: +BACDST PO
== END | disposition home or self-care (01) ==
LOC: LAB 10:09
PROVIDERS: ATTEND Internal Medicine
DX: E11.21 Type 2 diabetes mellitus with diabetic nephropathy (principal); E11.22 Type 2 diabetes mellitus with diabetic chronic kidney disease; N18.30 Chronic kidney disease, stage 3 unspecified; N39.0 Urinary tract infection, site not specified; E55.9 Vitamin D deficiency, unspecified; M10.9 Gout, unspecified; E21.3 Hyperparathyroidism, unspecified; D63.1 Anemia in chronic kidney disease; R80.9 Proteinuria, unspecified
CPT/HCPCS: 87086

== ENCOUNTER → 2024-09-09 | Outpatient (CLI) | payer OTHER ==
[2024-09-09 09:48] LABS: Urine Bacteria None Seen /hpf (None Seen)
[2024-09-09 10:24] LABS: Urine Blood Negative /uL (Negative); Urine Clarity Clear (Clear); Urine Color Light-Yellow (Yellow); Urine Protein, UAD TRACE (Negative); Urine Squamous Epithelial Cell FEW /hpf (<5); Urine Urobilinogen Normal (Negative); Urine WBC 17 /HPF (0-3); Urine pH 5.5 (5.0-9.0)
[2024-09-09 11:00] LABS: Alanine Aminotransferase 35 U/L (7-40); Anion Gap 9 (5-15); BUN/Creatinine Ratio 17.3 (10.0-20.0); Calcium 10.2 mg/dL (8.7-10.4); Carbon Dioxide 26 mmol/L (20-31); Chloride 104 mmol/L (98-107); LDL Cholesterol 71 mg/dL (< 100); Potassium 4.8 mmol/L (3.5-5.1); Sodium 139 mmol/L (136-145); Total Protein 7.9 g/dL (5.7-8.2)
[2024-09-09 11:01] LABS: Aspartate Aminotransferase 21 U/L (13-40); Bilirubin, Total 0.7 mg/dL (0.2-1.0); Cholesterol 130 mg/dL (< 200)
[2024-09-09 11:02] LABS: Alkaline Phosphatase 135 U/L (46-116); Blood Urea Nitrogen 24 mg/dL (9-23); Glucose 233 mg/dL (74-106); HDL Cholesterol 27 mg/dL (40-59); Triglycerides 279 mg/dL (< 150)
[2024-09-09 11:31] LABS: Creatinine, Urine 123.71 mg/dL (30.0-125.0)
== END | disposition home or self-care (01) ==
LOC: LAB 09:19
PROVIDERS: ATTEND Internal Medicine
DX: N40.1 Benign prostatic hyperplasia with lower urinary tract symptoms (principal); E11.42 Type 2 diabetes mellitus with diabetic polyneuropathy; E78.5 Hyperlipidemia, unspecified; E55.9 Vitamin D deficiency, unspecified; R32 Unspecified urinary incontinence
CPT/HCPCS: 36415; 80053; 80061; 81001; 82043; 82306; 82570; 83036; 84439; 84443

== ENCOUNTER → 2024-11-10 | Outpatient (CLI) | payer OTHER ==
[~2024-11-10] VITALS: Ht 157.5 cm; Wt 87.1 kg
[2024-11-10] MEDS: REGADENOSON 0.4 MG/5 ML SYRG IV ONE ×2 (10:45→10:46)
--- NOTE | 2024-11-10 15:23 | DVHSR ---
APPROVED REPORT Exam: Nuclear Stress Test Indication: Chest pain BMI: 0 Medical History Medical History: HTN, Hyperlipidemia, Diabetes Allergies: No known drug allergies Stress Test Details Stress Test: Pharmacologic stress testing performed using 0.4 mg of regadenoson per 5 mL given IV ov er 10 seconds. HR Resting HR: 74 bpmMax Heart Rate (APMHR): 149.729272 bpm Max HR Achieved: 84 bpmTarget HR (85% APMHR): 126.986607 bpm % of APMHR: 56.38 Recovery HR: 78 bpm BP Resting BP: 155/68 mmHg Recovery BP: 133/63 mmHg ECG Resting ECG: Sinus Rhythm Clinical Reason for Termination: Completed protocol Nurse Comments Recieved pt. from etouches Med. A/Ox4 on RA. Connected to classroom monitor, VS stable. PIV flushes well. Reviewed POC. Pt. verbalized understanding of procedure including risks and side ef fects, agrees for stress testing. Lexiscan stress test performed per protocol. [employer] tech administered Cardiolite. Pt. tolerated well . Pt. stable, no change on exam. VS returned to baseline. Transferred to [employer] via wheelchair w/ te ch. Stress ECG Conclusion ecg shows SR LBBB stress shows large inferoseptal wall reversibel defect this is highly suspicious for CAD lvef 51% NM EXAM: Myocardial Perfusion REST/STRESS Imaging Protocol: Rest Tc-99m/Stress Tc-99m 1 day Resting Data Rest SPECT myocardial perfusion imaging was performed in supine position 45 minutes following the int ravenous injection of 14.4 mCi of Tc-99m Sestamibi. Time of rest injection: 09:40 Date: 11/10/2024 Time of rest imagin:25 Date: 11/10/2024 Administration Route: IV Administration Site: Right AC Pharmacologic Stress Pharmacologic stress test was performed by injecting Regadenoson 0.4 mg IV push followed by the intra venous injection of 33.9 mCi of Tc-99m Sestamibi. Time of stress injection: 10:50 Date: 11/10/2024 Time of stress imagin:35 Date: 11/10/2024 Administration Route: IV Administration Site: Right AC Gated Stress SPECT was performed 45 minutes after stress injection. The images were gated to evaluate regional wall motion and calculate left ventricular ejection fracti on. Stress only was performed in the Supine position. Nuclear Conclusion ecg shows SR LBBB stress shows large inferoseptal wall reversibel defect this is highly suspicious for CAD lvef 51%
== END | disposition home or self-care (01) ==
LOC: XYW 09:16
PROVIDERS: ATTEND Internal Medicine
DX: I10 Essential (primary) hypertension (principal); E11.65 Type 2 diabetes mellitus with hyperglycemia; E78.5 Hyperlipidemia, unspecified; N47.1 Phimosis; N40.0 Benign prostatic hyperplasia without lower urinary tract symptoms; R07.9 Chest pain, unspecified; R06.02 Shortness of breath; Z79.4 Long term (current) use of insulin
CPT/HCPCS: 78452; 93017; A9500; J2785

== ENCOUNTER → 2024-11-16 | Outpatient (CLI) | payer OTHER ==
[2024-11-16 09:25] LABS: Urine Bacteria None Seen /hpf (None Seen)
[2024-11-16 09:31] LABS: Basophils # (auto) 0 10 ^3/uL (0-0.2); Basophils % (auto) 0.3 % (0.0-2.0); Eosinophils # (auto) 0.3 10 ^3/uL (0-0.8); Eosinophils % (auto) 3.5 % (0.0-7.0); Hematocrit 36.9 % (41.0-53.0); Hemoglobin 12.6 g/dL (13.5-17.5); Lymphocytes # (auto) 1.7 10 ^3/uL (0.4-5.4); Lymphocytes % (auto) 18.6 % (10.0-50.0); Mean Corpuscular Hemoglobin 28.3 pg (28.0-32.0); Mean Corpuscular Hgb Conc. 34.1 g/dL (32.0-36.0); Mean Corpuscular Volume 83.1 fL (80.0-100.0); Monocytes # (auto) 0.7 10 ^3/uL (0-1.3); Monocytes % (auto) 7.8 % (0.0-12.0); Neutrophils # (auto) 6.4 10 ^3/uL (1.6-8.6); Neutrophils % (auto) 69.8 % (37.0-80.0); Platelet Count (auto) 244 10^3/uL (140-450); Red Blood Cells 4.44 10^6/uL (4.5-5.90); Red Cell Distribution Width 14.6 % (11.8-14.3); White Blood Cell 9.2 10^3/uL (4.4-10.8)
[2024-11-16 10:06] LABS: Alanine Aminotransferase 28 U/L (7-40); Alkaline Phosphatase 110 U/L (46-116); Anion Gap 11 (5-15); Carbon Dioxide 24 mmol/L (20-31); Chloride 105 mmol/L (98-107); Potassium 4.2 mmol/L (3.5-5.1); Sodium 140 mmol/L (136-145)
[2024-11-16 10:08] LABS: Albumin 4.7 g/dL (3.2-4.8); Aspartate Aminotransferase 24 U/L (13-40); Blood Urea Nitrogen 21 mg/dL (9-23); Glucose 119 mg/dL (74-106); LDL Cholesterol 80 mg/dL (< 100); Total Protein 7.5 g/dL (5.7-8.2); Triglycerides 185 mg/dL (< 150)
[2024-11-16 10:09] LABS: Cholesterol 132 mg/dL (< 200)
[2024-11-16 10:10] LABS: Bilirubin, Total 0.7 mg/dL (0.2-1.0); HDL Cholesterol 27 mg/dL (40-59)
[2024-11-16 10:21] LABS: Creatinine, Urine 101.93 mg/dL (30.0-125.0)
[2024-11-16 10:32] LABS: Urine Blood Negative /uL (Negative); Urine Clarity Clear (Clear); Urine Color Light-Yellow (Yellow); Urine Protein, UAD TRACE (Negative); Urine Specific Gravity 1.014 (1.001-1.035); Urine Squamous Epithelial Cell FEW /hpf (<5); Urine Urobilinogen Normal (Negative); Urine WBC 26 /HPF (0-3)
== END | disposition home or self-care (01) ==
LOC: LAB 09:10
PROVIDERS: ATTEND Internal Medicine
DX: I12.9 Hypertensive chronic kidney disease with stage 1 through stage 4 chronic kidney disease, or unspecified chronic kidney disease (principal); E11.22 Type 2 diabetes mellitus with diabetic chronic kidney disease; N18.2 Chronic kidney disease, stage 2 (mild); E11.42 Type 2 diabetes mellitus with diabetic polyneuropathy; N39.0 Urinary tract infection, site not specified; E55.9 Vitamin D deficiency, unspecified; E61.1 Iron deficiency; Z00.01 Encounter for general adult medical examination with abnormal findings
CPT/HCPCS: 36415; 80053; 80061; 81001; 82043; 82306; 82570; 83036; 84439; 84443; 85025

== ENCOUNTER 2025-01-03 07:52 | Outpatient (CLI) | payer OTHER ==
[2025-01-03 08:27] LABS: Hematocrit 35.5 % (41.0-53.0); Hemoglobin 12.2 g/dL (13.5-17.5); Mean Corpuscular Hemoglobin 28.5 pg (28.0-32.0); Mean Corpuscular Volume 83.1 fL (80.0-100.0); Nucleated Red Blood Cells % 0.0 %
[2025-01-03 08:52] LABS: Chloride 105 mmol/L (98-107); Potassium 4.5 mmol/L (3.5-5.1); Sodium 139 mmol/L (136-145)
[2025-01-03 08:53] LABS: Anion Gap 9 (5-15); Calcium 10.1 mg/dL (8.7-10.4); Carbon Dioxide 25 mmol/L (20-31)
[2025-01-03 08:58] LABS: BUN/Creatinine Ratio 20.3 (10.0-20.0)
[2025-01-03 09:00] LABS: Cholesterol 116 mg/dL (< 200)
[2025-01-03 09:08] LABS: Blood Urea Nitrogen 29 mg/dL (9-23); Glucose 264 mg/dL (74-106); HDL Cholesterol 24 mg/dL (40-59); Triglycerides 263 mg/dL (< 150)
== END 2025-01-03 19:19 | disposition home or self-care (01) ==
LOC: LAB 07:52
PROVIDERS: ATTEND Internal Medicine
DX: I12.9 Hypertensive chronic kidney disease with stage 1 through stage 4 chronic kidney disease, or unspecified chronic kidney disease (principal); E11.22 Type 2 diabetes mellitus with diabetic chronic kidney disease; E11.29 Type 2 diabetes mellitus with other diabetic kidney complication; E11.69 Type 2 diabetes mellitus with other specified complication; E78.2 Mixed hyperlipidemia; N18.32 Chronic kidney disease, stage 3b; N39.0 Urinary tract infection, site not specified; D50.8 Other iron deficiency anemias; R80.9 Proteinuria, unspecified
CPT/HCPCS: 36415; 80048; 80061; 83036; 85025

== ENCOUNTER 2025-01-11 06:51 | Inpatient (IN) | payer OTHER ==
[2025-01-09 13:58] LABS: Hematocrit 38.6 % (41.0-53.0); Hemoglobin 13.5 g/dL (13.5-17.5); Mean Corpuscular Hemoglobin 29.1 pg (28.0-32.0); Mean Corpuscular Volume 82.9 fL (80.0-100.0); Nucleated Red Blood Cells % 0.0 %
[2025-01-09 14:03] LABS: INR 1.03 (0.9-1.15); Partial Thromboplastin Time 27.6 SEC (24.5-34.5); Prothrombin Time 10.9 sec (9.3-11.8)
[2025-01-09 14:21] LABS: Alanine Aminotransferase 33 U/L (7-40); Anion Gap 9 (5-15); BUN/Creatinine Ratio 18.4 (10.0-20.0); Calcium 10.0 mg/dL (8.7-10.4); Carbon Dioxide 26 mmol/L (20-31); Chloride 106 mmol/L (98-107); Potassium 4.5 mmol/L (3.5-5.1); Sodium 141 mmol/L (136-145); Total Protein 7.6 g/dL (5.7-8.2)
[2025-01-09 14:22] LABS: Bilirubin, Total 0.6 mg/dL (0.2-1.0)
[2025-01-09 14:25] LABS: Albumin 4.9 g/dL (3.2-4.8); Alkaline Phosphatase 120 U/L (46-116); Blood Urea Nitrogen 28 mg/dL (9-23); Glucose 153 mg/dL (74-106)
[~2025-01-11] VITALS: Ht 170.2 cm; Wt 86.6 kg
[2025-01-11] VITALS (16 sets, daily range): BP systolic 97–177; BP diastolic 63–108; PULSE 70–97; RESP 15–19; TEMP 97.6–97.8; O2SAT 90–99
[~2025-01-11 06:51] MED LIST changes: +ACET-1304 PO; -AMLO1TAB22 PO; +AMLO1TAB23 PO; -BACDST PO; -BENZ200C64 PO; -CHOL100047 PO; +CHOL10009 PO; -DEX4T PO; -DOXY100C4 PO; -EMPA1TAB3 PO; -ERGO1CAP23 PO; +FERR65TA12 PO; +GABA-1308 PO; -GLIP5TAB21 PO; -LACT12LO26 TOP; -METO-289 PO; +METO25TA5 PO; -TAMS-35 PO
[2025-01-11] MEDS: IOHEXOL 350 MG/ML 100ML IJ ONE (07:30)
[2025-01-11] MEDS: LIDOCAINE 2%HCL (LOCAL ANESTH.) INJ 10ml MDV ONE (07:31)
[2025-01-11] MEDS: VERAPAMIL 2.5MG/ML INJ 2ML VIAL IV ONE (08:27)
[2025-01-11] MEDS: MIDAZOLAM HCL 2MG/2ML 2ml VIAL (1mg/ml) ONE (08:27)
[2025-01-11] MEDS: LIDOCAINE 2%HCL (LOCAL ANESTH.) INJ 20ML MDV ONE (08:27)
[2025-01-11] MEDS: HEPARIN SODIUM (PORCINE) 5000 UNITS/ML 1ML VIAL ONE (08:27)
[2025-01-11] MEDS: fentaNYL CITRATE 100 MCG/2 ML VL ONE (08:27)
[2025-01-11] MEDS: IODIXANOL 320MG/ML 100ML BTL IV ONE ×3 (08:46→09:56)
[2025-01-11] MEDS: hydrALAZINE HCL 20 MG/ML VL ONE (09:17)
[2025-01-11] MEDS: ANGIOMAX 250 MG VIAL IV ONE (09:33)
[2025-01-11] MEDS: SODIUM CHL 0.9% 0 ML ONE (09:33)
--- NOTE | 2025-01-11 10:43 | DVHOP2 ---
Operative Report - 2 Report Details Date: 01/11/25 Preop Diagnosis: CAD Postop Diagnosis: Triple-vessel disease Surgeon: Janelle Forbes MD Anesthesiologist: Conscious sedation Anesthesia: Mac, Local Consent: The patient was informed of the risks and benefits of the procedure. These include but are not limited to complications of anesthesia, postoperative infection, incomplete relief of symptoms, recurrence of symptoms, damage to blood vessels, nerves and tendons, deep venous thrombosis, pulmonary embolism and possible need for repeat surgery in the future. Complications: No complications Findings: Triple-vessel disease Indications for Surgery: Chest pain Name of Procedure Performed Left heart catheterization bilateral cine coronary angiography. Left ventriculography. Procedure Details Procedure Details: Prior local anesthesia with 2% lidocaine to the right wrist and full informed consent obtained, under fluoroscopic and ultrasound guidance we placed a sheath into the right radial artery through which Jean catheters were used to cannulate both right and left coronary ostia with a pigtail catheter used for ventriculography. No complications Hemodynamics: Aortic blood pressure was 130/70. End-diastolic pressure was 10. There was no gradient across the aortic valve on pullback. Coronary anatomy: The RCA is a dominant vessel. It has moderate plaquing in its proximal and mid section. The mid and distal section has significant stenosis. There is tandem 90-95% lesions in the distal RCA. The PDA has a 70- 80% mid stenosis. The posterolateral branches are smaller but free of signi ficant disease. FFR of the RCA is less than 0.75 indicating significant stenosis. The left main is large and normal. Left anterior descending has a discrete 75-80% stenosis at its proximal to mid section. The diagonals are free of significant disease. The circumflex is large and codominant. The 1st marginal branch has a significant stenosis of the 85-90% which by fractional flow reserve evaluation reveals a significant stenosis. The distal RCA prior to the origin of the posterolateral branch also has a critical lesion. FFR also significantly abnormal. Ventriculography in the LÓPEZ projection shows an EF of 45% with mild global hypokinesis. Impression: Mildly elevated left ventricular end-diastolic pressure at rest with decreased left ventricular ejection fraction. Three-vessel coronary artery disease as delineated above. Recommendations: We will recommend coronary bypass grafting. Condition Good Disposition Still a Patient Date of Service: Jan 11, 2025 Billing Provider: JANELLE FORBES Sr., MD Cardiology Common Codes: 74866-XJJUBGD INP/OBS CARE (High) Cardiology Procedure Codes: 52501-XHJI HEART CATH W/INTRA INJ (Fractional flow reserve evaluation of RCA lad and circumflex coronary vasculature) JANELLE FORBES Sr., MD Jan 11, 2025 10:43
[2025-01-11] MEDS ORDERED: DEXTROSE (50%) 50ML SYRG IV PRN (16:45)
[2025-01-11] MEDS ORDERED: ONDANSETRON HCL 4 MG/2 ML VIAL IV PRN (16:45)
--- NOTE | 2025-01-11 16:45 | DVHHP2 ---
Review of Systems Allergies: Coded Allergies: NO KNOWN ALLERGIES (Unverified , 11/10/24) Medications Current Medications Medications Dose Ordered Sig/Ankur Route Start Time Stop Time Status Last Admin Dose Admin Clonidine HCl 0.1 mg Q2HP PRN PO 01/11/25 11:30 Exam Vital Signs Vital Signs Date Time Temp Pulse Resp B/P (MAP) Pulse Ox O2 Delivery O2 Flow Rate FiO2 01/11/25 15:14 17 96 Room Air* 0 21 01/11/25 14:51 97.8 76 132/77 (95) 97.8 Labs/Xrays Labs Test 01/09/25 13:42 Range/Units White Blood Count 10.4 4.4-10.8 10^3/uL Red Blood Count 4.65 4.5-5.90 10^6/uL Hemoglobin 13.5 13.5-17.5 g/dL Hematocrit 38.6 L 41.0-53.0 % Mean Corpuscular Volume 82.9 80.0-100.0 fL Mean Corpuscular Hemoglobin 29.1 28.0-32.0 pg Mean Corpuscular Hemoglobin Concent 35.1 32.0-36.0 g/dL Red Cell Distribution Width 15.1 H 11.8-14.3 % Platelet Count 282 140-450 10^3/uL Mean Platelet Volume 8.1 6.9-10.8 fL Neutrophils (%) (Auto) 68.7 37.0-80.0 % Lymphocytes (%) (Auto) 21.0 10.0-50.0 % Monocytes (%) (Auto) 7.7 0.0-12.0 % Eosinophils (%) (Auto) 2.4 0.0-7.0 % Basophils (%) (Auto) 0.2 0.0-2.0 % Neutrophils # (Auto) 7.1 1.6-8.6 10 ^3/uL Lymphocytes # (Auto) 2.2 0.4-5.4 10 ^3/uL Monocytes # (Auto) 0.8 0-1.3 10 ^3/uL Eosinophils # (Auto) 0.3 0-0.8 10 ^3/uL Basophils # (Auto) 0 0-0.2 10 ^3/uL Nucleated Red Blood Cells 0.0 % Prothrombin Time 10.9 9.3-11.8 sec Prothrombin Time INR 1.03 0.9-1.15 Activated Partial Thromboplast Time 27.6 24.5-34.5 SEC Sodium Level 141 136-145 mmol/L Potassium Level 4.5 3.5-5.1 mmol/L Chloride Level 106 98-107 mmol/L Carbon Dioxide Level 26 20-31 mmol/L Anion Gap 9 5-15 Blood Urea Nitrogen 28 H 9-23 mg/dL Creatinine 1.52 H 0.700-1.30 mg/dL Glomerular Filtration Rate Calc 49 >90 mL/min BUN/Creatinine Ratio 18.4 10.0-20.0 Serum Glucose 153 #H 74-106 mg/dL Calcium Level 10.0 8.7-10.4 mg/dL Total Bilirubin 0.6 0.2-1.0 mg/dL Aspartate Amino Transferase (AST) 28 13-40 U/L Alanine Aminotransferase (ALT) 33 7-40 U/L Alkaline Phosphatase 120 H 46-116 U/L Total Protein 7.6 5.7-8.2 g/dL Albumin 4.9 H 3.2-4.8 g/dL SEPSIS Sepsis Screen Physician Orders Post Cath Vital Signs Q 15min (01/11/25 10:10) Post Cath Activity Protocol (01/11/25 10:10) Cardiac Diet-2gna,Lofat,Lochol (01/11/25 Lunch) Basic Metabolic Panel (01/12/25 05:00) Hold All Metformin For 48 Hour (01/11/25 10:15) Admit (01/11/25 11:17) * Hospitalist Consult (01/11/25 11:18) Clonidine Hcl Tablet (Catapres Tablet) (01/11/25 11:30) Vital Signs Date Time Temp Pulse Resp B/P (MAP) Pulse Ox O2 Delivery O2 Flow Rate FiO2 01/11/25 15:14 17 96 Room Air* 0 21 01/11/25 14:51 97.8 76 17 132/77 (95) 96 97.8 01/11/25 14:51 97.8 76 17 132/77 (95) 96 97.8 01/11/25 14:20 85 18 148/93 (111) 96 01/11/25 13:11 79 17 127/87 (100) 97 01/11/25 12:45 77 16 120/63 (82) 97 01/11/25 12:19 83 16 125/72 (89) 97 01/11/25 11:40 162/108 01/11/25 11:39 97 19 162/108 (126) 95 01/11/25 11:21 93 17 156/100 (118) 98 01/11/25 11:07 91 16 157/69 (98) 97 01/11/25 10:37 97 15 116/73 (87) 95 01/11/25 10:22 82 15 97/74 (82) 99 01/11/25 10:08 97.8 81 16 177/89 (118) 90 97.8 01/11/25 09:17 184/94 Medications Medications Dose Ordered Sig/Ankur Route Start Time Stop Time Status Last Admin Dose Admin Clonidine HCl 0.2 mg STK-MED ONCE .ROUTE 01/11/25 11:35 01/11/25 11:33 DC 01/11/25 11:40 0.2 MG Fentanyl Citrate 100 mcg STK-MED ONCE .ROUTE 01/11/25 08:27 01/11/25 08:25 DC 01/11/25 08:27 50 MCG Hydralazine HCl 20 mg STK-MED ONCE .ROUTE 01/11/25 09:17 01/11/25 09:15 DC 01/11/25 09:17 10 MG Iodixanol 32,000 mg STK-MED ONCE IV 01/11/25 08:46 01/11/25 08:44 DC 01/11/25 08:46 20,000 MG Midazolam HCl 2 mg STK-MED ONCE .ROUTE 01/11/25 08:27 01/11/25 08:26 DC 01/11/25 08:27 1 MG Assessment/Plan Assessment/Plan SEE DICTATED NOTE Plan discussed with: Patient Date of Service: Jan 11, 2025 Billing Provider: IRA MEREDITH MD Common Visit Codes: 30382-[id number] INP/OBS CARE (HIGH) Secondary Visit Codes: [id number] CARE PLAN 30 MINUTES IRA MEREDITH MD Jan 11, 2025 16:45
--- NOTE | 2025-01-11 17:40 | DVHHP ---
HISTORY OF PRESENT ILLNESS: The patient is a 69-year-old gentleman who had increasing shortness of breath and subsequently underwent coronary angiography by Dr. Forbes. The patient has now been noted to have triple vessel disease. The patient denies any chest pain. No nausea or vomiting. No dizziness or syncope. REVIEW OF SYSTEMS: Review of rest of systems otherwise currently negative. PAST MEDICAL HISTORY: Significant for diabetes, hypertension, hyperlipidemia, CKD, likely obstructive sleep apnea, and congestive heart failure. MEDICATIONS: Include amlodipine, aspirin, Lipitor, gabapentin, glimepiride, Lantus, losartan, metformin, and metoprolol. ALLERGIES: No known drug allergies. SOCIAL HISTORY: Denies smoking or alcohol. He lives at home with his . FAMILY HISTORY: Negative. PHYSICAL EXAMINATION: GENERAL: The patient is awake and alert. VITAL SIGNS: Temperature 97.8, pulse 76 per minute, blood pressure 132/77. SHEENT: Unremarkable. NECK: There is no JVD, no pedal edema. LUNGS: Equal bilaterally. No added sounds. CARDIOVASCULAR: S1 and S2 are regular without murmurs. ABDOMEN: Soft. There is no organomegaly. NEUROLOGIC: Nonfocal. MUSCULOSKELETAL: Normal. ASSESSMENT AND PLAN: * Coronary artery disease with triple vessel disease. The patient will need to be transferred for a CABG. * Diabetes mellitus for which he will be placed on sliding scale insulin. * Hypertension. * Hyperlipidemia. * CKD stage 3. * Obesity. * Likely obstructive sleep apnea. * Advanced care planning: The patient is a full cod-Time spent was 18 minutes. MD RYAN Roman/MEERA TID: [id number] RECEIPT: [id number] MTDD
[2025-01-11] MEDS: ACCU-CHEK COMFORT CURVE STRIP VI SCH (18:00)
[2025-01-11] MEDS: InsuLIN REG 1unit/0.01ml Soln (100units/ml) SC SCH (18:00)
[2025-01-11] MEDS: ACETAMINOPHEN 325 MG TAB PO PRN (18:09)
[2025-01-11] MEDS: ATORVASTATIN 20 MG TAB PO SCH (21:41)
[2025-01-11] MEDS: METOPROLOL TARTRATE 25 MG TAB PO SCH (21:42)
[2025-01-12] VITALS (7 sets, daily range): BP systolic 14–171; BP diastolic 8–99; PULSE 65–73; RESP 15–18; TEMP 96.8–97.7; O2SAT 93–97
[2025-01-12 07:14] LABS: Urine Budding Yeast OCCASIONAL /hpf (None Seen); Urine Protein, UAD TRACE (Negative)
[2025-01-12 07:22] LABS: Anion Gap 11 (5-15); Calcium 9.8 mg/dL (8.7-10.4); Carbon Dioxide 23 mmol/L (20-31); Chloride 104 mmol/L (98-107); Potassium 4.1 mmol/L (3.5-5.1); Sodium 138 mmol/L (136-145)
[2025-01-12 07:25] LABS: Hematocrit 36.7 % (41.0-53.0); Hemoglobin 12.4 g/dL (13.5-17.5); Mean Corpuscular Hemoglobin 28.4 pg (28.0-32.0); Mean Corpuscular Volume 84.0 fL (80.0-100.0); Nucleated Red Blood Cells % 0.0 %
[2025-01-12 07:51] LABS: BUN/Creatinine Ratio 20.7 (10.0-20.0); Blood Urea Nitrogen 29 mg/dL (9-23); Glucose 146 mg/dL (74-106)
[2025-01-12] MEDS: GABAPENTIN 100 MG CAP PO SCH (10:14)
--- NOTE | 2025-01-12 10:19 | DVHDS2 ---
Discharge Summary Date of Admission Jan 11, 2025 at 11:17 Date of Discharge: Jan 12, 2025 Labs/Diagnostic Data: Laboratory Results Test 01/12/25 06:10 01/12/25 06:07 01/12/25 05:45 01/09/25 13:42 White Blood Count 11.5 10^3/uL (4.4-10.8) Red Blood Count 4.37 10^6/uL (4.5-5.90) Hemoglobin 12.4 g/dL (13.5-17.5) Hematocrit 36.7 % (41.0-53.0) Mean Corpuscular Volume 84.0 fL (80.0-100.0) Mean Corpuscular Hemoglobin 28.4 pg (28.0-32.0) Mean Corpuscular Hemoglobin Concent 33.9 g/dL (32.0-36.0) Red Cell Distribution Width 15.3 % (11.8-14.3) Platelet Count 235 10^3/uL (140-450) Mean Platelet Volume 8.7 fL (6.9-10.8) Neutrophils (%) (Auto) 75.1 % (37.0-80.0) Lymphocytes (%) (Auto) 15.1 % (10.0-50.0) Monocytes (%) (Auto) 6.9 % (0.0-12.0) Eosinophils (%) (Auto) 2.8 % (0.0-7.0) Basophils (%) (Auto) 0.1 % (0.0-2.0) Neutrophils # (Auto) 8.6 10 ^3/uL (1.6-8.6) Lymphocytes # (Auto) 1.7 10 ^3/uL (0.4-5.4) Monocytes # (Auto) 0.8 10 ^3/uL (0-1.3) Eosinophils # (Auto) 0.3 10 ^3/uL (0-0.8) Basophils # (Auto) 0 10 ^3/uL (0-0.2) Nucleated Red Blood Cells 0.0 % Sodium Level 138 mmol/L (136-145) Potassium Level 4.1 mmol/L (3.5-5.1) Chloride Level 104 mmol/L (98-107) Carbon Dioxide Level 23 mmol/L (20-31) Anion Gap 11 (5-15) Blood Urea Nitrogen 29 mg/dL (9-23) Creatinine 1.40 mg/dL (0.700-1.30) Glomerular Filtration Rate Calc 54 mL/min (>90) BUN/Creatinine Ratio 20.7 (10.0-20.0) Serum Glucose 146 mg/dL (74-106) Calcium Level 9.8 mg/dL (8.7-10.4) POC Glucose 173 mg/dl (70-106) Urine Color Light-yellow (Yellow) Urine Clarity Clear (Clear) Urine pH 5.5 (5.0-9.0) Urine Specific [place] 1.030 (1.001-1.035) Urine Protein Trace (Negative) Urine Ketones Negative (Negative) Urine Blood Negative /uL (Negative) Urine Nitrite Negative (Negative) Urine Bilirubin Negative (Negative) Urine Urobilinogen Normal mg/dL (Negative) Urine Leukocyte Esterase 2+ /uL (Negative) Urine RBC 4 /hpf (0 - 3) Urine Microscopic WBC 47 /HPF (0-3) Urine Squamous Epithelial Cells None seen /hpf (<5) Urine Bacteria None seen /hpf (None Seen) Urine Mucus Few (None Seen) Urine Yeast (Budding) Occasional /hpf (None Urine Glucose Normal mg/dL (Normal) Prothrombin Time 10.9 sec (9.3-11.8) Prothrombin Time INR 1.03 (0.9-1.15) Activated Partial Thromboplast Time 27.6 SEC (24.5-34.5) Total Bilirubin 0.6 mg/dL (0.2-1.0) Aspartate Amino Transferase (AST) 28 U/L (13-40) Alanine Aminotransferase (ALT) 33 U/L (7-40) Alkaline Phosphatase 120 U/L (46-116) Total Protein 7.6 g/dL (5.7-8.2) Albumin 4.9 g/dL (3.2-4.8) Other Laboratory Tests 01/12/25 06:10 Brief Hx & Hospital Course: see dictated note Condition at Discharge: Good Final Diagnosis/Problems List cabg Discharge Disposition: Acute Care Facility Discharge Instruct/Medications Diet: Consistent carbohydrate, Cardiac 2g Na,low cholest Activity: No Restrictions, As Tolerated Follow Up/Referral: fu with pcp/cardiology Medications: per mar Scheduled Amlodipine Besylate (Amlodipine Besylate), 1 TAB PO QAM, (Reported) Aspirin (Aspirin Low Dose), 1 TAB PO DAILY, (Reported) Atorvastatin Calcium (Lipitor), 1 TAB PO HS, (Reported) Cholecalciferol (Vitamin D3), 1 CAP PO DAILY, (Reported) Ferrous Sulfate Dried (Iron High Potency), 1 TAB PO BID, (Reported) Gabapentin (Gabapentin), 1 CAP PO HS, (Reported) Glimepiride (Glimepiride), 1 TAB PO BID, (Reported) Insulin Glargine (Lantus Solostar), 20 UNIT SC QAM, (Reported) Insulin Glargine (Lantus Solostar), 30 UNIT SC QPM, (Reported) Losartan Potassium (Losartan Potassium), 1 TAB PO QAM, (Reported) Metformin Hydrochloride (Metformin Hcl), 1 TAB PO BIDWM, (Reported) Metoprolol Tartrate (Metoprolol Tartrate), 1 TAB PO BID, (Reported) Scheduled PRN Acetaminophen (Tylenol Extra Strength), 1 TAB PO DAILY PRN for MODERATE PAIN (4- 6 PAIN SCALE), (Reported) Discontinued Medications Amlodipine Besylate (Amlodipine Besylate), 10 MG PO DAILY, (Reported) Discontinued Reason: Prescription changed Metoprolol Succinate (Metoprolol Succinate Er), 1 TAB PO DAILY, (Reported) Discontinued Reason: Prescription changed Discharge Statement: "Patient was advised to return to the ER or call 911 if any headaches, dizziness, shortness of breath, chest pain, abdominal pain, bleeding, fevers, or worsening of medical condition. Patient was counseled about treatment plan, medications, possible side effects, patientverbalized understanding. All questions were answered to the best of my ability. This discharge took greater then 30 minutes in planning, reviewing documentation, counseling the patient, and discussing with other team members." ASSESSMENT ASSESSMENT Assessment cabg Date of Service: Jan 12, 2025 Billing Provider: IRA MEREDITH MD Common Visit Codes: 25250-MDS/OBS DISCH DAY >30min IRA MEREDITH MD Jan 12, 2025 10:19
--- NOTE | 2025-01-12 10:40 | DVHDS ---
HISTORY OF PRESENT ILLNESS: The patient is a 69-year-old gentleman who underwent coronary angiography for increasing shortness of breath and was found to have triple vessel disease. The patient has a history of diabetes, hypertension, hyperlipidemia, chronic kidney disease, and congestive heart failure. HOSPITAL COURSE: The patient's creatinine was about 1.4. The patient's UA showed evidence of UTI for which he was placed on IV Rocephin and a urine culture has been obtained. The patient will now be transferred for high level of care for CABG. FINAL DIAGNOSES: * Coronary artery disease with triple vessel disease. * Diabetes mellitus. * Hypertension. * Hyperlipidemia. * CKD stage III. * Obesity. * UTI. * Questionable BPH. Time spent in discharge planning and review of plan with the patient and nursing and paper work was 39 minutes. MD RYAN Roman/ARLENE TID: [id number] RECEIPT: [id number]
[2025-01-12] MEDS: TAMSULOSIN HYDROCHLORIDE 0.4 MG CAP PO ONE (11:54)
[2025-01-12] MEDS: cefTRIAXone 1GM/50ML D5W 50 ML IV ONE (11:54)
[2025-01-13] MEDS ORDERED: cefTRIAXone 1GM/50ML D5W 50 ML IV SCH (09:00)
[2025-01-13] MEDS ORDERED: TAMSULOSIN HYDROCHLORIDE 0.4 MG CAP PO SCH (18:00)
== END 2025-01-12 18:29 | disposition short-term general hospital (02) | DRG 287 ==
LOC: CATH 06:51 → OVERFLOW 11:17 → TELE-CENTR 14:35
PROVIDERS: ADMIT Internal Medicine; ATTEND Internal Medicine
PROC: 4A023N7 Measurement of Cardiac Sampling and Pressure, Left Heart, Percutaneous Approach (ICD-10-PCS; principal; 2025-01-11)
PROC: B211YZZ Fluoroscopy of Multiple Coronary Arteries using Other Contrast (ICD-10-PCS; 2025-01-11)
PROC: B215YZZ Fluoroscopy of Left Heart using Other Contrast (ICD-10-PCS; 2025-01-11)
PROC: 4A033BC Measurement of Arterial Pressure, Coronary, Percutaneous Approach (ICD-10-PCS; 2025-01-11)
DX: I25.10 Atherosclerotic heart disease of native coronary artery without angina pectoris (principal); I13.0 Hypertensive heart and chronic kidney disease with heart failure and stage 1 through stage 4 chronic kidney disease, or unspecified chronic kidney disease; N39.0 Urinary tract infection, site not specified; I50.9 Heart failure, unspecified; E66.9 Obesity, unspecified; N18.30 Chronic kidney disease, stage 3 unspecified; E11.22 Type 2 diabetes mellitus with diabetic chronic kidney disease; N40.0 Benign prostatic hyperplasia without lower urinary tract symptoms; E78.5 Hyperlipidemia, unspecified; Z95.1 Presence of aortocoronary bypass graft; Z68.29 Body mass index [BMI] 29.0-29.9, adult
CPT/HCPCS: 0523T; 93458; 36415; 80048; 80053; 81001; 82962; 85025; 85610; 85730; 87086; 87088; 87186; 99152; G0378; J1815; J2003; J2250; Q9967

== ENCOUNTER 2025-02-07 13:08 | Inpatient (IN) | payer OTHER, MEDICAID ==
[~2025-02-07] VITALS: Ht 170.2 cm; Wt 87.2 kg
--- NOTE | 2025-02-07 13:20 | ED.PDOC ---
HPI Comments 70-year-old male presents with a chief complaint of generalized weakness s/p CABG x 2 weeks ago. Per EMS, initial call was for a lift-assist for patient, but home health nurse and family reported to EMS that since patient arrived back today from [place] after having open heart surgery he has been becoming progressively weaker. Patient is not on blood thinners according to EMS. Patient is slightly febrile at 99.9F orally. PMHx: CKF, HTN, HLD, MO, CVA, DM PSHx: CABG Rubina - Daughter - [phone] HPI: Poor Historian. PASCUAL: Testicular swelling, Nogueira catheter in place, wound dressing bilateral lower extremity likely from CABG, slightly pale, slightly uncomfortable but denies any chest pain. Generalized weakness and lift assist. REVIEW OF SYSTEMS: CONSTITUTIONAL: Denies acute: fever, diaphoresis, chills, HEAD: Denies acute: headache, photophobia Eyes: Denies acute: Double vision, vision loss, eye pain, eye discharge. EARS: Denies acute: tinnitus, hearing loss, ear discharge, ear pain, THROAT: Denies acute: sore throat, swelling, difficulty swallowing , pain with swallowing, change in voice. NECK: Denies acute: neck pain, neck swelling, stiff neck. HEART: Denies acute : chest pain, palpitations, LUNGS: Denies acute: SOB, wheezing, cough, hemoptysis ABDOMEN: Denies acute: abdominal pain, Nausea, Vomiting, diarrhea, melena , hematemesis, hematochezia SKIN: Denies acute: rash, redness, lesions, itchiness. EXTREMITIES: Denies acute: calf pain, numbness, tingling, weakness, denies pain in extremity. Denies acute: Low back pain. Neuro: Denies acute: focal neurological deficit, motor or sensory focal neurological deficit, tremors, seizure like activity, confusion, dizziness, change in mental status, loss of bowel or bladder function, cauda equina like symptoms. : Denies acute: dysuria, hematuria, flank pain, increase in urinary frequency. PSYCH: Denies acute: hallucination, suicidal ideation, homicidal ideation. PHYSICAL EXAM: General: ----[id number]---acute distress, awake and alert. Head: normocephalic, atraumatic. Neck: supple, trachea is midline, no swelling. Throat: Normal phonation. Eyes:, no erythema, no purulent discharge, no proptosis, no icterus. Heart: regular rate, regular rhythm, no significant murmur appreciated. Lungs: no apparent respiratory distress, Able to speak in full sentences. No wheezing, no rhonchi, no crackles. No stridors Clear to auscultation bilaterally. Abdomen: non tender to palpation, non distended, soft, no guarding, no rebound, + bowel sounds. Obese Neuro: Awake, Alert, oriented to name, self, situation, follows commands GCS=15. Speech is normal. Noted testicular and penile edema with Nogueira catheter in place. Skin: no petechia, no purpura, no cyanosis, slightly-pale, not jaundice. Lower extremities: --2/4 bilateral - Pitting edema. Noted bilateral lower extremity distal wound dressing likely from CABG venous grafting. no deformity, no focal swelling, no calf TTP. Makes eye contact. moves all four extremities. Face: no apparent facial droop. ED COURSE: DISCLAIMER: This medical document was created using an electronic medical record system with voice recognition software and computerized dictation system. Although this document has been carefully reviewed, there might still be some phonetic and typographical errors. Occasional wrong-word or "sound-alike" substitutions may have occurred due to the inherent limitations of voice recognition software. These areas are purely typographical due to imperfections of the software programs and do not reflect any compromise in the patient's medical care. Please read the chart carefully and recognize, using context, where these substitutions have occurred. Time Seen by MD: 13:10 Primary Care Provider: UNKNOWN Reviewed Notes: Medications, Allergies Allergies: Coded Allergies: NO KNOWN ALLERGIES (Unverified , 11/10/24) Home Meds Reported Medications Metformin Hydrochloride (Metformin Hcl) 1,000 Mg Tab, 1 TAB PO BIDWM for DIABETES TAKE WITH MORNING AND EVENING MEALS 01/09/25 Insulin Glargine (Lantus Solostar) 100 Unit/Ml Inj, 30 UNIT SC QPM for DIABETES 01/09/25 Gabapentin (Gabapentin) 100 Mg Cap, 1 CAP PO HS for NEUROPATHY 01/09/25 Ferrous Sulfate Dried (Iron High Potency) 65 Mg Tab, 1 TAB PO BID for SUPPLEMENT 01/09/25 Cholecalciferol (Vitamin D3) 1,000 Unit Cap, 1 CAP PO DAILY for SUPPLEMENT 01/09/25 Amlodipine Besylate (Amlodipine Besylate) 10 Mg Tab, 1 TAB PO QAM for HYPERTENSION 01/09/25 Aspirin (Aspirin Low Dose) 81 Mg Chw, 1 TAB PO DAILY for HEART ATTACK PREVENTION 10/15/23 Insulin Glargine (Lantus Solostar) 100 Unit/Ml Inj, 20 UNIT SC QAM for DIABETES 10/15/23 Atorvastatin Calcium (Lipitor) 40 Mg Tab, 1 TAB PO HS for HIGH CHOLESTEROL 10/15/23 Losartan Potassium (Losartan Potassium) 100 Mg Tab, 1 TAB PO QAM for HYPERTENSION 10/15/23 Glimepiride (Glimepiride) 4 Mg Tab, 1 TAB PO BID for DIABETES 10/15/23 Discontinued Reported Medications Acetaminophen (Tylenol Extra Strength) 500 Mg Tab, 1 TAB PO DAILY PRN for MODERATE PAIN (4-6 PAIN SCALE) 01/09/25 Metoprolol Tartrate (Metoprolol Tartrate) 25 Mg Tab, 1 TAB PO BID for HYPERTENSION 01/09/25 Information Source: Patient, Emergency Med Personnel Past Medical History PAST MEDICAL HISTORY: CKF, DM, High Lipids, HTN, UTI'S Surgical History: Denies all surgeries Family History Family History: Reviewed,noncontributory to illness Social History Smoker: Non-Smoker Alcohol: Denies ETOH Use Drugs: Denies Drug Use Lives In: Home Was a procedure done? Was a procedure done?: No CP Differential Dx Differential Diagnosis: Other (Includes but not limited to thyroid disease, encephalopathy, electrolyte abnormality, sepsis, infection, intracranial pathology, drug adverse effects, arrhythmia, kidney insufficiency, ACS, CVA, malignancy, anemia) X-Ray, Labs, Meds, VS Vital Signs Date Time Temp Pulse Resp B/P (MAP) Pulse Ox O2 Delivery O2 Flow Rate FiO2 02/07/25 16:00 55 02/07/25 16:00 55 18 159/56 (90) 92 02/07/25 14:00 98.7 64 18 138/73 (94) 92 98.7 02/07/25 14:00 Room Air* 0 21 02/07/25 13:21 99.9 68 18 149/71 96 99.9 02/07/25 13:14 69 Lab Test 02/07/25 15:11 02/07/25 14:11 02/07/25 13:29 Range/Units Troponin I High Sensitivity 32 33 </=54 ng/L Sodium Level 131 L 136-145 mmol/L Potassium Level 4.8 3.5-5.1 mmol/L Chloride Level 101 98-107 mmol/L Carbon Dioxide Level 23 20-31 mmol/L Anion Gap 7 5-15 Blood Urea Nitrogen 38 H 9-23 mg/dL Creatinine 1.39 H 0.700-1.30 mg/dL Glomerular Filtration Rate Calc 54 >90 mL/min BUN/Creatinine Ratio 27.3 H 10.0-20.0 Serum Glucose 59 L 74-106 mg/dL Lactic Acid Level 1.0 0.4-2.0 mmol/L Calcium Level 8.3 L 8.7-10.4 mg/dL Total Bilirubin 0.7 0.2-1.0 mg/dL Aspartate Amino Transferase (AST) 54 H 13-40 U/L Alanine Aminotransferase (ALT) 88 H 7-40 U/L Alkaline Phosphatase 174 H 46-116 U/L B-Type Natriuretic Peptide 390.57 0-100 pg/mL Total Protein 5.6 L 5.7-8.2 g/dL Albumin 3.7 3.2-4.8 g/dL POC Glucose 74 70-106 mg/dl PATIENT: CURTIS PASCUAL CACCT: [id number]: [id number] : 1955 LOC: ER ROOM / BED: / AGE / SEX: 70 / M ADM STATUS: REG ER SERVICE 1312 ORDERING PHYSICIAN: CAMI DASILVA DO PROCEDURE(s): CXRP - CHEST PORTABLE REASON: gen weak post CABG ORDER NUMBER(s): [id number], ACCESSION NUMBER(s): [id number] EXAM: XY CHEST PORTABLE HISTORY: gen weak post CABG COMPARISON: XY CHEST XRAY 1 VIEW on DOS: 02/01/24, CT CHEST WITHOUT CONTRAST on DOS: 01/29/24, XY CHEST PORTABLE on DOS: 01/28/24, XY CHEST PORTABLE on DOS: 10/22/23, XY CHEST PORTABLE on DOS: 06/18/23 TECHNIQUE: Portable upright AP view of the chest was performed. FINDINGS: There are interval postoperative changes of CABG. There are infiltrates in the left mid to lower lung, and possible left pleural effusion obscuring the left hemidiaphragm. No pneumothorax. There is interstitial prominence bilaterally, greater on the left. The heart is enlarged. IMPRESSION: 1. Cardiomegaly and interval postoperative changes of the heart. 2. Interstitial prominence suggestive of mild CHF. 3. Left basilar infiltrate and effusion likely due to postoperative changes, less likely developing pneumonia. ATED BY: DALLAS WILLIAMSON MD DICTATED DATE/TIME: 02/07/251409 SIGNED BY: DALLAS WILLIAMSON MD SIGNED DATE/TIME: 02/07/[address] [place] [address] Ph: [phone] DIAGNOSTIC IMAGING Diagnostic Imaging Report : [id number] Signed PATIENT: CURTIS PASCUAL ACCT: [id number] UNIT: [id number] : 1955 LOC: [facility] ROOM / BED: [address] [place] [address] AGE / SEX: 70 / M ADM STATUS: ADM IN SERVICE 47 ORDERING PHYSICIAN: KATIUSKA DELUCA DNP PROCEDURE(s): BLDVT - BiLat Lower DVT REASON: Rule out DVT ORDER NUMBER(s): [id number], ACCESSION NUMBER(s): [id number] BILATERAL LOWER EXTREMITY VENOUS DUPLEX REASON FOR EXAMINATION: Rule out DVT COMPARISON: US LT LOWER DVT on DOS: 06/18/23, RT LOWER DVT on DOS: 08/06/22 TECHNIQUE: Using real-time freeze-frame technique with a high-frequency transducer, multiple longitudinal and transverse sections were obtained. Simultaneous color flow and spectral Doppler imaging was performed. FINDINGS: There is good visualization of the deep venous system with no intraluminal filling defects identified. Normal venous compressibility is seen and there is flow augmentation. Color flow Doppler imaging is unremarkable. IMPRESSION: NO EVIDENCE OF DEEP VENOUS THROMBOSIS. ATED BY: FERNANDEZ FERNANDEZ MD DICTATED DATE/TIME: 02/07/251754 SIGNED BY: FERNANDEZ FERNANDEZ MD SIGNED DATE/TIME: 02/07/251754 CC: [place] [id number] Ph: [phone] DIAGNOSTIC IMAGING Diagnostic Imaging Report : [id number] Signed PATIENT: CURTIS PASCUAL ACCT: [id number] UNIT: [id number] : 1955 LOC: [facility] ROOM / BED: [address] [place] [address] AGE / SEX: 70 / M ADM STATUS: ADM IN SERVICE 47 ORDERING PHYSICIAN: KATIUSKA DELUCA DNP PROCEDURE(s): CX2CT - CHEST WITHOUT CONTRAST REASON: Status post CABG ORDER NUMBER(s): [id number], ACCESSION NUMBER(s): [id number] NON-CONTRAST CHEST COMPUTERIZED TOMOGRAPHY REASON FOR STUDY: Status post CABG COMPARISON: XY CHEST PORTABLE on DOS: 02/07/25, XY CHEST XRAY 1 VIEW on DOS: 02/01/24, CT CHEST WITHOUT CONTRAST on DOS: 01/29/24, XY CHEST PORTABLE on DOS: 01/28/24, XY CHEST PORTABLE on DOS: 10/22/23 TECHNIQUE: The exam was performed on a multidetector spiral scanner. Spiral scans were acquired through the chest. 2-D coronal and sagittal reformatted images were provided. Radiation optimization: All CT scans at this facility use at least one of these dose optimization techniques: Automated exposure control mA and/or kV adjustment per patient size (includes targeted exams where dose is matched to clinical indication) or iterative reconstruction. RADIATION DOSE: CTDI: 27.87 mGy DLP: 1054.81 mGy-cm FINDINGS: Respiratory motion artifacts degrades evaluation of the lung parenchyma. There is subsegmental dependent consolidation in the right lower lobe. There is consolidation of much of the left lower lobe. There is trace right pleural effusion. There is small to moderate-sized left pleural effusion. There is a 3.3 x 6.2 x 3.8 cm organized fluid collection in the anterior mediastinum and chest wall which may be associated with the pericardium and causes moderate mass effect on the lingula. There is a small pericardial effusion. There is trace air within the non dependent pericardium. There are surgical changes associated with CABG. There is trace fluid in the superior pericardial recess. There is no thoracic aortic aneurysm. There is mild edema in the fat in the mediastinum. The heart itself appears larger than on the prior study. No pathologic lymphadenopathy is identified by size criteria. Streak artifact from the patient's arms over the chest degrades evaluation of the entire chest. There is mildly displaced acute fracture of the left 1st rib. There is nondisplaced acute fracture of the left 2nd rib. IMPRESSION: Trace right and small to moderate-sized left pleural effusions. Consolidation of much of the left lower lobe. There is a 6.2 cm organized fluid collection in the anterior mediastinum abutting the chest wall and the pericardium and causing moderate mass effect on the lingula. Surgical changes associated with CABG. Small pericardial effusion. Trace pneumopericardium. The heart itself appears larger than on the prior study. Acute fractures of the left 1st and 2nd ribs. ATED BY: FERNANDEZ FERNANDEZ MD DICTATED DATE/TIME: 02/07/251902 SIGNED BY: FERNANDEZ FERNANDEZ MD SIGNED DATE/TIME: 02/07/251902 CC: Time of 1ST Reevaluation: 13:25 Reevaluation 1ST: Unchanged Time of 2ND Reevaluation: 16:47 (Case discussed with the packing line operator on-call Dr. Couch. He recommends CTA angiogram of the chest and bilateral lower extremity Doppler ultrasound and stat echo. I informed the admitting team hospitalist who will order these tests. Dr. Couch said he will follow in consult and agrees with keeping the patient here in our facility for further evaluation.) Time of 3RD Reevaluation: 19:27 (Daughter is at bedside at this time. She states that the patient received blood transfusion few days prior to being discharged from the hospital. Patient was discharged from the hospital yesterday. Patient has an indwelling Nogueira catheter. Patient is awaiting a circumcision procedure to help with history of frequent UTIs. Daughter states that the lower extremity was infected after the CABG procedure and required drainage.) Patient Education/Counseling: Diagnosis, Treatment Family Education/Counseling: No Family Present Comments MDM: patient presented with the above HPI.---generalized weakness---workup was initiated. patient was found with the above mentioned diagnosis. the following medications were ordered: please refer to order lists of meds and tests obtained by myself Dr. Dasilva. Patient ED course and VS have been stabilized. Patient has been reassessed in the ED and remained in a stable condition. Pertinent incidental findings were discussed with the patient and/or family. Patient/family voices understanding and is agreeable with plan. Patient has been observed in the ED adequate length of time to insure improvement/stability. Escalation of care considered: Consideration of escalation to observation or admission Cardiology was consulted who came and evaluated the patient at bedside. Anti biotics initiated by the admitting team. Patient was ADMITTED to the medicine team for further evaluation and treatment of their presentation. All the reports of any imaging studies that were ordered by myself were reviewed by myself. Departure 1 Departure Time of Disposition: 00:00 Impression: Primary Impression: Generalized weakness Additional Impressions: Edema Hypoglycemia Pleural effusion Lung consolidation Anemia Disposition: ADMITTED INPATIENT Admit to: Tele Condition: Guarded Discharged With: Self, Relative Critical Care Note Critical Care Time?: Yes (45 min-critical care time only) I personally scribed for CAMI DASILVA DO ([email or web address]) on 02/07/25 at 13:20. Electronically submitted by Edson Fulton ([email or web address]). I personally scribed for CAMI DASILVA DO ([email or web address]) on 02/07/25 at 16:15. Electronically submitted by Edson Fulton ([email or web address]). CAMI DASILVA DO Feb 07, 2025 13:20
--- NOTE | 2025-02-07 14:12 | DVH ---
EXAM: XY CHEST PORTABLE HISTORY: gen weak post CABG COMPARISON: XY CHEST XRAY 1 VIEW on DOS: 02/01/24, CT CHEST WITHOUT CONTRAST on DOS: 01/29/24, XY CHEST P ORTABLE on DOS: 01/28/24, XY CHEST PORTABLE on DOS: 10/22/23, XY CHEST PORTABLE on DOS: 06/18/23 TECHNIQUE: Portable upright AP view of the chest was performed. FINDINGS: There are interval postoperative changes of CABG. There are infiltrates in the left mid to lower lung , and possible left pleural effusion obscuring the left hemidiaphragm. No pneumothorax. There is inte rstitial prominence bilaterally, greater on the left. The heart is enlarged. IMPRESSION: 1. Cardiomegaly and interval postoperative changes of the heart. 2. Interstitial prominence suggestive of mild CHF. 3. Left basilar infiltrate and effusion likely due to postoperative changes, less likely developing p neumonia.
[2025-02-07 14:44] LABS: Albumin 3.7 g/dL (3.2-4.8); Anion Gap 7 (5-15); BUN/Creatinine Ratio 27.3 (10.0-20.0); Carbon Dioxide 23 mmol/L (20-31); Chloride 101 mmol/L (98-107); Potassium 4.8 mmol/L (3.5-5.1)
[2025-02-07 14:45] LABS: Alanine Aminotransferase 88 U/L (7-40); Alkaline Phosphatase 174 U/L (46-116); Bilirubin, Total 0.7 mg/dL (0.2-1.0); Blood Urea Nitrogen 38 mg/dL (9-23); Calcium 8.3 mg/dL (8.7-10.4); Glucose 59 mg/dL (74-106); Sodium 131 mmol/L (136-145); Total Protein 5.6 g/dL (5.7-8.2)
[2025-02-07] MEDS ORDERED: ACETAMINOPHEN 325 MG TAB PO PRN (15:30)
--- NOTE | 2025-02-07 16:53 | DVHHP2 ---
History of Present Illness Reason for Visit: Generalized weakness History of Present Illness The patient is a 70-year-old male with past medical history of chronic kidney failure, hypertension, CA, CVA, diabetes mellitus, hypertension, and CABG 2 weeks ago at [facility] presented to [facility] ED with complaint of generalized weakness. Home health nurse and family reported to EMS that since patient arrived back from [facility] today after having open heart surgery, he has been becoming progressively weaker associated with altered mental status, bilateral lower extremity and scrotum swelling, getting worse that prompted this visit. Patient was seen and evaluated in the ED, laboratory data shows CBC results pending, sodium 131, potassium 4.8, BUN 38, creatinine 1.39, glucose 59, calcium 8.3, BNP 390.57, protein 5.6, troponin 33, AST 54, ALT 88, alkaline phos 174, blood pressure 149/71, heart rate 58, temperature low-grade fever 99.9 F, O2 saturation 96% on oxygen. Chest x-ray revealing cardiomegaly and interval postoperative change of the had, interstitial prominence suggestive of mild CHF, left basilar infiltrate and effusion likely due to postoperative changes, less likely developing pneumonia. Please see medication orders section in the computer. On my assessment, patient denies chest pain at this moment, no dizziness, no diaphoresis, no headache, currently on oxygen, no nausea, no vomiting, no chills. Patient was admitted for further evaluation and medical management. Past Medical History CKF, HTN, HLD, CA, CVA, DM Past Surgical History CABG two weeks ago. Family History Reviewed, noncontributory to the management of this case. Past Social History The patient lives at home, denies smoking, alcohol or illicit drugs abuse. Review of Systems Constitutional: Yes: Fever, Weakness; No: Chills, Sweats, Malaise, Other Eyes: No: Pain, Vision change, Conjunctivae inflammation, Eyelid inflammation, Other, Redness ENT: No: Ear pain, Ear discharge, Nose pain, Nose discharge, Nose congestion, Mouth pain, Mouth swelling, Throat pain, Throat swelling, Other Respiratory: No: Cough, Dry, Shortness of breath, SOB with excertion, Wheezing, Hemoptysis, Pleuritic Pain, Sputum, Wheezing, Other Cardiovascular: Edema; No: Chest Pain, Palpitations, Orthopnea, Paroxysmal Noc. Dyspnea, Lt Headedness, Other Gastrointestinal: No: Nausea, Vomiting, Abdominal Pain, Diarrhea, Constipation, Melena, Hematochezia, Other Genitourinary: No Dysuria, No Frequency, No Incontinence, No Hematuria, No Retention; Other (Scrotum/penis swelling, Nogueira catheter in place.) Musculoskeletal: other (Lower extremity swelling); No: neck pain, shoulder pain, arm pain, back pain, hand pain, leg pain, foot pain Skin: Other (Skin graft bilateral lower extremity); No: Rash, Lesions, Jaundice, Bruising Neurological: No: Weakness, Numbness, Incoordination, Change in speech, Confusion, Seizures, Other Allergies: Coded Allergies: NO KNOWN ALLERGIES (Unverified , 11/10/24) Medications Current Medications Medications Dose Ordered Sig/Ankur Route Start Time Stop Time Status Last Admin Dose Admin Aspirin 81 mg DAILY PO 02/08/25 10:00 Atorvastatin Calcium 20 mg HS PO 02/07/25 22:00 Metoprolol Tartrate 25 mg BID PO 02/07/25 22:00 Amlodipine Besylate 10 mg DAILY PO 02/08/25 10:00 Furosemide 20 mg DAILY IV 02/08/25 10:00 Azithromycin 250 ml @ 125 mls/hr DAILY IV 02/08/25 10:00 Diagnostic Test (Pha) 1 strip ACHS 02/07/25 17:00 Insulin Human Regular ACHS SC 02/07/25 17:00 Dextrose 50 ml UD PRN IV 02/07/25 15:30 Sodium Chloride 10 ml Q8HR IV 02/07/25 22:00 Acetaminophen/ Hydrocodone Bitart 1 tab Q4HP PRN PO 02/07/25 15:30 Ondansetron HCl 4 mg Q4HP PRN IV 02/07/25 15:30 Docusate Sodium 100 mg BIDPRN PRN PO 02/07/25 15:30 Acetaminophen 650 mg Q6HP PRN PO 02/07/25 15:30 Exam Vital Signs Vital Signs Date Time Temp Pulse Resp B/P (MAP) Pulse Ox O2 Delivery O2 Flow Rate FiO2 02/07/25 13:21 99.9 68 18 149/71 96 99.9 General Appearance: Alert, Cooperative, No acute distress, Other (Oriented x2) HEENT: Atraumatic, PERRLA, EOMI, Mucous membr. moist/pink Respiratory: Normal air movement Cardiovascular: Regular rate, Normal S1, Normal S2, No murmurs Abdominal: Normal bowel sounds, Soft, No tenderness, No hepatospenomegaly, No masses Extremities: No clubbing, No cyanosis, No edema, Normal pulses, No tenderness/swelling Skin: No rashes, No breakdown, No significant lesion Neuro: Normal speech, Normal tone, Sensation intact, Cranial nerves 3-12 NL, Reflexes 2+, Other (Generalized weakness) Psych/Mental Status: Mental status NL, Mood NL Labs/Xrays Labs Test 02/07/25 15:11 02/07/25 14:11 02/07/25 13:29 Range/Units Troponin I High Sensitivity 32 </=54 ng/L Sodium Level 131 L 136-145 mmol/L Potassium Level 4.8 3.5-5.1 mmol/L Chloride Level 101 98-107 mmol/L Carbon Dioxide Level 23 20-31 mmol/L Anion Gap 7 5-15 Blood Urea Nitrogen 38 H 9-23 mg/dL Creatinine 1.39 H 0.700-1.30 mg/dL Glomerular Filtration Rate Calc 54 >90 mL/min BUN/Creatinine Ratio 27.3 H 10.0-20.0 Serum Glucose 59 L 74-106 mg/dL Lactic Acid Level 1.0 0.4-2.0 mmol/L Calcium Level 8.3 L 8.7-10.4 mg/dL Total Bilirubin 0.7 0.2-1.0 mg/dL Aspartate Amino Transferase (AST) 54 H 13-40 U/L Alanine Aminotransferase (ALT) 88 H 7-40 U/L Alkaline Phosphatase 174 H 46-116 U/L B-Type Natriuretic Peptide 390.57 0-100 pg/mL Total Protein 5.6 L 5.7-8.2 g/dL Albumin 3.7 3.2-4.8 g/dL POC Glucose 74 70-106 mg/dl PATIENT: CURTIS PASCUAL ACCT: [id number] UNIT: [id number] : 1955 LOC: ER ROOM / BED: / AGE / SEX: 70 / M ADM STATUS: REG ER SERVICE 1312 ORDERING PHYSICIAN: CAMI DASILVA DO PROCEDURE(s): CXRP - CHEST PORTABLE REASON: gen weak post CABG ORDER NUMBER(s): [id number], ACCESSION NUMBER(s): [id number] EXAM: XY CHEST PORTABLE HISTORY: gen weak post CABG COMPARISON: XY CHEST XRAY 1 VIEW on DOS: 02/01/24, CT CHEST WITHOUT CONTRAST on DOS: 01/29/24, XY CHEST PORTABLE on DOS: 01/28/24, XY CHEST PORTABLE on DOS: 10/22/23, XY CHEST PORTABLE on DOS: 06/18/23 TECHNIQUE: Portable upright AP view of the chest was performed. FINDINGS: There are interval postoperative changes of CABG. There are infiltrates in the left mid to lower lung, and possible left pleural effusion obscuring the left hemidiaphragm. No pneumothorax. There is interstitial prominence bilaterally, greater on the left. The heart is enlarged. IMPRESSION: 1. Cardiomegaly and interval postoperative changes of the heart. 2. Interstitial prominence suggestive of mild CHF. 3. Left basilar infiltrate and effusion likely due to postoperative changes, less likely developing pneumonia. SEPSIS Sepsis Screen Date sepsis recognized/suspect: Feb 07, 2025 Time Sepsis recognized/suspect: 1321 Recent Procedure: No On Antibiotic Therapy: No Respiratory Rate >20: No Heart Rate >90: No Temp<36 C (96.8 F) or >38.3 C: No SBP <90 or MAP <65 mmHG: No New Acute Mental Status Change: No Is the patient on CPAP, BIPAP,: No Physician Orders Needle [employer] Supervisor (02/07/25 ) Complete Blood Count (02/07/25 13:12) Urinalysis (02/07/25 13:12) Chest Portable (02/07/25 13:12) Electrocardigram (02/07/25 13:12) Troponin-I Hs (02/07/25 16:12) Electrocardigram (02/07/25 14:12) Electrocardigram (02/07/25 16:12) Aspirin Tablet (02/08/25 10:00) Atorvastatin (Lipitor) (02/07/25 22:00) Metoprolol Tartrate Tablet (Lopressor Ta (02/07/25 22:00) Amlodipine Tablet (Norvasc Tablet) (02/08/25 10:00) Furosemide Injection (Lasix Injection) (02/08/25 10:00) Azithromycin 500mg/ 250ml (Zithromax 50 (02/08/25 10:00) Azithromycin 500mg/ 250ml (Zithromax 50 (02/07/25 15:30) Glucose Blood (Accu-Chek Comfort Curve T (02/07/25 17:00) Insulin R (Human) (Insulin R) (02/07/25 17:00) Dextrose 50% Syringe (02/07/25 15:30) Allergies (02/07/25 15:17) Code Status (02/07/25 15:17) Sodium Chloride Lock (Saline Lock Ns) (02/07/25 22:00) Oxygen Per Hour (02/07/25 15:17) Hydrocodone-Acet 5/325mg Tab (Candor 5/32 (02/07/25 15:30) Ondansetron Hcl (Zofran) (02/07/25 15:30) Docusate Sodium Capsule (Colace Capsule) (02/07/25 15:30) Fall Risk Precautions In Place QSHIFT (02/07/25 15:17) Complete Blood Count (02/08/25 04:00) Comprehensive Metabolic Panel (02/08/25 04:00) Cardiac Diet-2gna,Lofat,Lochol (02/07/25 Dinner) Condition: Serious (02/07/25 15:17) Acetaminophen Tablet (Tylenol Tablet) (02/07/25 15:30) Maintain Bed Rest (02/07/25 15:17) Sequential Compression Device (02/07/25 ) * Cardiology Consult (02/07/25 16:44) Vital Signs Date Time Temp Pulse Resp B/P (MAP) Pulse Ox O2 Delivery O2 Flow Rate FiO2 02/07/25 13:21 99.9 68 18 149/71 96 99.9 02/07/25 13:14 69 Laboratory Tests Test 02/07/25 14:11 02/07/25 15:11 Lactic Acid Level 1.0 mmol/L (0.4-2.0) White Blood Count Pending Assessment/Plan Assessment/Plan Generalized weakness Altered mental status Fever, unspecified Elevated liver enzymes Acute renal injury Electrolyte imbalance Acute exacerbation of congestive heart failure Diabetes mellitus with hypoglycemia Status post coronary artery bypass graft Plan 1. Admit to step-down unit 2. Breathing treatment 3. Pain control management 4. IV antibiotic management 5. Management of fluids and electrolytes 6. Consultation for Cardiology 7. Diagnostic test chest CT, bilateral lower extremity ultrasound 8. DVT prophylaxis-on aspirin 9. Repeat labs CBC, CMP in a.m. 10. Home medication reviewed and reconciled 11. Continue with current medical management 12. Treatment plan discussed with patient/family and RN. Patient/daughter verbalized understanding. Plan discussed with: Patient, Other (RN) My Orders Orders - KATIUSKA DELUCA DNP Procedure Category Date Status Time Aspirin Tablet PHA 02/08/25 In Process 10:00 Atorvastatin (Lipitor) PHA 02/07/25 In Process 22:00 Metoprolol Tartrate PHA 02/07/25 In Process Tablet (Lopressor Ta 22:00 Amlodipine Tablet PHA 02/08/25 In Process (Norvasc Tablet) 10:00 Furosemide Injection PHA 02/08/25 In Process (Lasix Injection) 10:00 Azithromycin 500mg/ PHA 02/08/25 In Process 250ml (Zithromax 50 10:00 Azithromycin 500mg/ PHA 02/07/25 In Process 250ml (Zithromax 50 15:30 Glucose Blood PHA 02/07/25 In Process (Accu-Chek Comfort 17:00 Insulin R (Human) PHA 02/07/25 In Process (Insulin R) 17:00 Dextrose 50% Syringe PHA 02/07/25 In Process 15:30 Allergies BECKY 02/07/25 In Process 15:17 Code Status CODE 02/07/25 Transmitted 15:17 Sodium Chloride Lock PHA 02/07/25 In Process (Saline Lock Ns) 22:00 Oxygen Per Hour RT 02/07/25 Transmitted 15:17 Hydrocodone-Acet PHA 02/07/25 In Process 5/325mg Tab (Candor 15:30 Ondansetron Hcl PHA 02/07/25 In Process (Zofran) 15:30 Docusate Sodium PHA 02/07/25 In Process Capsule (Colace 15:30 Fall Risk Precautions BECKY 02/07/[address] 15:17 Complete Blood Count LAB 02/08/25 Verified 04:00 Comprehensive LAB 02/08/25 Verified Metabolic Panel 04:00 Cardiac DIET 02/07/25 Transmitted Diet-2gna,Lofat,Lochol Dinner Condition: Serious BECKY 02/07/25 In Process 15:17 Acetaminophen Tablet PHA 02/07/25 In Process (Tylenol Tablet) 15:30 Maintain Bed Rest BECKY 02/07/25 In Process 15:17 Sequential BECKY 02/07/25 In Process Compression Device Problem List: (1) Generalized weakness (2) Fever, unspecified (3) Diabetes mellitus with hypoglycemia (4) Altered mental status (5) Elevated liver enzymes (6) Electrolyte imbalance (7) Acute renal injury (8) Status post coronary artery bypass graft (9) Acute exacerbation of congestive heart failure Date of Service: Feb 07, 2025 Billing Provider: KATIUSKA DELUCA DNP Common Visit Codes: 39959-[id number] INP/OBS CARE (HIGH) KATIUSKA DELUCA DNP Feb 07, 2025 16:53
[2025-02-07] MEDS ORDERED: NITROGLYCERIN 0.4 MG SL TAB SL PRN (17:00)
[2025-02-07] MEDS: InsuLIN REG 1unit/0.01ml Soln (100units/ml) SC SCH (17:00)
[2025-02-07] MEDS: ACCU-CHEK COMFORT CURVE STRIP VI SCH (17:09)
[2025-02-07] MEDS: AZITHROMYCIN 500MG/ 250ML 250 ML IV ONE (17:46)
[2025-02-07] MEDS: FUROSEMIDE 20 MG/2 ML VIAL IV ONE (17:46)
--- NOTE | 2025-02-07 17:58 | DVH ---
BILATERAL LOWER EXTREMITY VENOUS DUPLEX REASON FOR EXAMINATION: Rule out DVT COMPARISON: US LT LOWER DVT on DOS: 06/18/23, RT LOWER DVT on DOS: 08/06/22 TECHNIQUE: Using real-time freeze-frame technique with a high-frequency transducer, multiple longitu dinal and transverse sections were obtained. Simultaneous color flow and spectral Doppler imaging wa s performed. FINDINGS: There is good visualization of the deep venous system with no intraluminal filling defects identified. Normal venous compressibility is seen and there is flow augmentation. Color flow Doppler imaging is unremarkable. IMPRESSION: NO EVIDENCE OF DEEP VENOUS THROMBOSIS.
[2025-02-07 18:29] LABS: Hematocrit 25.8 % (41.0-53.0); Hemoglobin 8.8 g/dL (13.5-17.5); Mean Corpuscular Hemoglobin 30.2 pg (28.0-32.0); Mean Corpuscular Volume 88.9 fL (80.0-100.0); Nucleated Red Blood Cells % 0.0 %
[2025-02-07 18:47] LABS: Anisocytosis Moderate
--- NOTE | 2025-02-07 19:06 | DVH ---
NON-CONTRAST CHEST COMPUTERIZED TOMOGRAPHY REASON FOR STUDY: Status post CABG COMPARISON: XY CHEST PORTABLE on DOS: 02/07/25, XY CHEST XRAY 1 VIEW on DOS: 02/01/24, CT CHEST WITHOUT CONTRAST on DOS: 01/29/24, XY CHEST PORTABLE on DOS: 01/28/24, XY CHEST PORTABLE on DOS: 10/22/23 TECHNIQUE: The exam was performed on a multidetector spiral scanner. Spiral scans were acquired throu gh the chest. 2-D coronal and sagittal reformatted images were provided. Radiation optimization: All CT scans at this facility use at least one of these dose optimization techniques: Automated exposure control mA and/or kV adjustment per patient size (includes targeted exams where dose is matched to cl inical indication) or iterative reconstruction. RADIATION DOSE: CTDI: 27.87 mGy DLP: 1054.81 mGy-cm FINDINGS: Respiratory motion artifacts degrades evaluation of the lung parenchyma. There is subsegm ental dependent consolidation in the right lower lobe. There is consolidation of much of the left low er lobe. There is trace right pleural effusion. There is small to moderate-sized left pleural effus ion. There is a 3.3 x 6.2 x 3.8 cm organized fluid collection in the anterior mediastinum and chest wall which may be associated with the pericardium and causes moderate mass effect on the lingula. The re is a small pericardial effusion. There is trace air within the non dependent pericardium. There ar e surgical changes associated with CABG. There is trace fluid in the superior pericardial recess. The re is no thoracic aortic aneurysm. There is mild edema in the fat in the mediastinum. The heart itsel f appears larger than on the prior study. No pathologic lymphadenopathy is identified by size criteri a. Streak artifact from the patient's arms over the chest degrades evaluation of the entire chest. Th ere is mildly displaced acute fracture of the left 1st rib. There is nondisplaced acute fracture of t he left 2nd rib. IMPRESSION: Trace right and small to moderate-sized left pleural effusions. Consolidation of much of the left lo wer lobe. There is a 6.2 cm organized fluid collection in the anterior mediastinum abutting the chest wall and the pericardium and causing moderate mass effect on the lingula. Surgical changes associated with CABG. Small pericardial effusion. Trace pneumopericardium. The heart itself appears larger than on the prior study. Acute fractures of the left 1st and 2nd ribs.
--- NOTE | 2025-02-07 19:35 | DVHSR ---
APPROVED REPORT EXAM: Two-dimensional and M-mode echocardiogram with Doppler and color Doppler. Blood Pressure: 149/71 mmHg INDICATION chf exacerbation, unspecified Surgery/Intervention CABG: Date: 12/2024 RISK FACTORS Obesity: Height: 5'7, Weight: 200 DIMENSIONS LVDd4.6 (3.8-5.7cm)LA (2D)4.5 (1.9-4.0cm)Aortic Root3.1 (2.0-3.7cm) LVDs3.0 (2.5-4.0cm)LA (MM) (1.9-4.0cm)Aortic Cusp Exc1.2 (1.5-2.0cm) EF (%) 55.0 (55-70%)Rt. Atrium3.7 (1.9-4.0cm)Asc. Aorta cm IVSd0.7 (0.7-1.1cm)RV (D)4.0 (1.8-2.4cm) PWd1.0 (0.7-1.1cm) Mitral Valve MitralMitral Stenosis E wave1.33m/sMV Mean GR.mmHg A wave1.19m/sMV Peak GR.92mmHg E/A ratio1.12D MVAcm2 DECEL [id number] 1/2 Timems Aortic Valve Aortic ValveAortic Stenosis V11.38m/Deon Mean GR.9mmHg V22.04m/Deon Peak GR.17mmHg LVOT Diameter2.0 (1.8-2.4cm)Doppler AVA2.12cm2 Pulmonic Valve V21.33m/s Tricuspid Valve TR Velocity2.72m/s [id number] Other Information Quality : Technically LimitedRhythm : Technically limited study due to pt had CABG 2 weeks ago. Conclusion MILD LVH AND MILD LV DIASTOLIC DYSFUNCTION MODERATELY DILATED LA LV EF IS 60 % CALCIFIED AORTIC LEAFLETS DYSKINESIS OF IVS MODERATELY DILATED RV MODERATE DEGREE PULMONARY HYPERTENSION RVSP IS 45 MM OF HG AND IS HIGH MILD POSTERIOR PERICARDIAL EFFUSION
[2025-02-07 19:40] VITALS: PULSE 69; RESP 16; O2SAT 92
[2025-02-07] MEDS: cefTRIAXone 1GM/50ML D5W 50 ML IV ONE (19:48)
[2025-02-07 20:28] LABS: Urine Amorphous Crystal FEW /hpf (None Seen); Urine Protein, UAD Negative (Negative)
[2025-02-07] MEDS: ONDANSETRON HCL 4 MG/2 ML VIAL IV PRN (21:03)
[2025-02-07] MEDS: MORPHINE SULFATE INJ 2 MG/ml SYRG IV PRN (21:04)
[2025-02-07] MEDS: SODIUM CHLOR 0.9% PF (SALINE LOCK) 10ML VIAL/SYR IV SCH (21:30)
[2025-02-07] MEDS: METOPROLOL TARTRATE 25 MG TAB PO SCH (22:00)
[2025-02-07] MEDS: ATORVASTATIN 20 MG TAB PO SCH (22:01)
--- NOTE | 2025-02-08 00:09 | DVHINCON2 ---
Date of service: Feb 07, 2025 Referring Physician Soila Reason for Consultation S/P CABG History of Present Illness This is a 70 year old male with a PMH of CKF, HTN, HLD, UT, CVA, DM and CABG who is brought in by EMS with complaints of generalized weakness s/p CABG x 2 weeks ago. Per EMS, initial call was for a lift-assist for patient, but home health nurse and family reported to EMS that since patient arrived back today from [facility] after having open heart surgery he has been becoming progressively weaker. Patient is not on blood thinners according to EMS. Patient is slightly febrile at 99.9F orally. Chest x-ray shows cardiomegaly and interval postoperative changes of the heart, interstitial prominence suggestive of mild CHF and left basilar infiltrate and effusion likely due to postoperative changes, less likely developing pneumonia. 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 Troponin is negative x3. Patient was admitted to the hospital. I am asked to consult on this patient. Family History: Diabetes mellitus G8 MOTHER, G8 FATHER, Allergies: Coded Allergies: NO KNOWN ALLERGIES (Unverified , 11/10/24) Home Meds Reported Medications Acetaminophen (Tylenol Extra Strength) 500 Mg Tab, 1 TAB PO DAILY PRN for MODERATE PAIN (4-6 PAIN SCALE) 01/09/25 Metformin Hydrochloride (Metformin Hcl) 1,000 Mg Tab, 1 TAB PO BIDWM for DIABETES TAKE WITH MORNING AND EVENING MEALS 01/09/25 Insulin Glargine (Lantus Solostar) 100 Unit/Ml Inj, 30 UNIT SC QPM for DIABETES 01/09/25 Gabapentin (Gabapentin) 100 Mg Cap, 1 CAP PO HS for NEUROPATHY 01/09/25 Ferrous Sulfate Dried (Iron High Potency) 65 Mg Tab, 1 TAB PO BID for SUPPLEMENT 01/09/25 Cholecalciferol (Vitamin D3) 1,000 Unit Cap, 1 CAP PO DAILY for SUPPLEMENT 01/09/25 Metoprolol Tartrate (Metoprolol Tartrate) 25 Mg Tab, 1 TAB PO BID for HYPERTENSION 01/09/25 Amlodipine Besylate (Amlodipine Besylate) 10 Mg Tab, 1 TAB PO QAM for HYPERTENSION 01/09/25 Aspirin (Aspirin Low Dose) 81 Mg Chw, 1 TAB PO DAILY for HEART ATTACK PREVENTION 10/15/23 Insulin Glargine (Lantus Solostar) 100 Unit/Ml Inj, 20 UNIT SC QAM for DIABETES 10/15/23 Atorvastatin Calcium (Lipitor) 40 Mg Tab, 1 TAB PO HS for HIGH CHOLESTEROL 10/15/23 Losartan Potassium (Losartan Potassium) 100 Mg Tab, 1 TAB PO QAM for HYPERTENSION 10/15/23 Glimepiride (Glimepiride) 4 Mg Tab, 1 TAB PO BID for DIABETES 10/15/23 Current Medications Current Medications Medications (Trade) Dose Ordered Sig/Ankur Route PRN Reason Start Time Stop Time Status Last Admin Aspirin 81 mg DAILY PO 02/08/25 10:00 Atorvastatin Calcium (Lipitor) 20 mg HS PO 02/07/25 22:00 02/07/25 22:01 Metoprolol Tartrate (Lopressor Tablet) 25 mg BID PO 02/07/25 22:00 Amlodipine Besylate (Norvasc Tablet) 10 mg DAILY PO 02/08/25 10:00 Furosemide (Lasix Injection) 20 mg DAILY IV 02/08/25 10:00 Azithromycin 250 ml @ 125 mls/hr DAILY IV 02/08/25 10:00 Diagnostic Test (Pha) (Accu-Chek Comfort Curve T) 1 strip ACHS 02/07/25 17:00 02/07/25 21:55 Insulin Human Regular (InsuLIN R) ACHS SC 02/07/25 17:00 Dextrose 50 ml UD PRN IV Blood Sugar LESS THAN 60 02/07/25 15:30 Sodium Chloride (Saline Lock Ns) 10 ml Q8HR IV 02/07/25 22:00 02/07/25 21:30 Acetaminophen/ Hydrocodone Bitart ([place] 5/325MG Tab) 1 tab Q4HP PRN PO MODERATE PAIN (4-6 PAIN SCALE) 02/07/25 15:30 Ondansetron HCl (Zofran) 4 mg Q4HP PRN IV NAUSEA / VOMITING 02/07/25 15:30 02/07/25 21:03 Docusate Sodium (Colace Capsule) 100 mg BIDPRN PRN PO FOR CONSTIPATION 02/07/25 15:30 Acetaminophen (Tylenol Tablet) 650 mg Q6HP PRN PO PAIN SCALE 1-3 OR TEMP>100.4 02/07/25 15:30 Nitroglycerin (Ntrostat Sublingual) 0.4 mg Q5MINP PRN SL FOR CHEST PAIN 02/07/25 17:00 Morphine Sulfate 2 mg Q30M PRN IV FOR CHEST PAIN 02/07/25 17:00 02/07/25 21:04 Ceftriaxone Sodium 50 ml @ 100 mls/hr DAILY@09 IV 02/08/25 09:00 Review of Systems Constitutional: Yes: Fever, Weakness; No: Chills, Sweats, Malaise, Other Eyes: No: Pain, Vision change, Conjunctivae inflammation, Eyelid inflammation, Other, Redness ENT: No: Ear pain, Ear discharge, Nose pain, Nose discharge, Nose congestion, Mouth pain, Mouth swelling, Throat pain, Throat swelling, Other Respiratory: No: Cough, Dry, Shortness of breath, SOB with excertion, Wheezing, Hemoptysis, Pleuritic Pain, Sputum, Wheezing, Other Cardiovascular: Edema; No: Chest Pain, Palpitations, Orthopnea, Paroxysmal Noc. Dyspnea, Lt Headedness, Other Gastrointestinal: No: Nausea, Vomiting, Abdominal Pain, Diarrhea, Constipation, Melena, Hematochezia, Other Genitourinary: No Dysuria, No Frequency, No Incontinence, No Hematuria, No Retention; Other (Scrotum/penis swelling, Nogueira catheter in place.) Musculoskeletal: other (Lower extremity swelling); No: neck pain, shoulder pain, arm pain, back pain, hand pain, leg pain, foot pain Skin: Other (Skin graft bilateral lower extremity); No: Rash, Lesions, Jaundice, Bruising Neurological: No: Weakness, Numbness, Incoordination, Change in speech, Confusion, Seizures, Other Vital Signs Vital Signs Date Time Temp Pulse Resp B/P (MAP) Pulse Ox O2 Delivery O2 Flow Rate FiO2 02/07/25 23:00 79 15 162/57 (92) 94 02/07/25 20:00 98.5 98.5 02/07/25 19:40 Room Air* 0 21 Physical Exam GENERAL: Alert and oriented x 3. No acute distress. EYES: PERRL, EOMI. Anicteric. HENT: Moist mucous membranes. LUNGS: Clear to auscultation bilaterally. CARDIOVASCULAR: Regular rate and rhythm. ABDOMEN: Soft, non-tender and non-distended. EXTREMITIES: No edema. NEUROLOGIC: No focal neurological deficits. SKIN: Warm, dry. Labs/Diagnostic Data Labs Test 02/07/25 21:48 02/07/25 20:00 02/07/25 17:33 02/07/25 14:11 Range/Units POC Glucose 75 70-106 mg/dl Urine Color Light-yellow Yellow Urine Clarity Clear Clear Urine pH 5.5 5.0-9.0 Urine Specific [place] 1.008 1.001-1.035 Urine Protein Negative Negative Urine Ketones Negative Negative Urine Blood Negative Negative /uL Urine Nitrite Negative Negative Urine Bilirubin Negative Negative Urine Urobilinogen Normal Negative mg/dL Urine Leukocyte Esterase Trace Negative /uL Urine RBC 1 0 - 3 /hpf Urine Microscopic WBC 0-3 /HPF Urine Squamous Epithelial Cells None seen <5 /hpf Urine Uric Acid Crystals Few None Seen /hpf Urine Amorphous Crystals Few None Seen /hpf Urine Bacteria None seen None Seen /hpf Urine Glucose Normal Normal mg/dL White Blood Count 9.4 4.4-10.8 10^3/uL Red Blood Count 2.91 L 4.5-5.90 10^6/uL Hemoglobin 8.8 L 13.5-17.5 g/dL Hematocrit 25.8 L 41.0-53.0 % Mean Corpuscular Volume 88.9 80.0-100.0 fL Mean Corpuscular Hemoglobin 30.2 28.0-32.0 pg Mean Corpuscular Hemoglobin Concent 34.0 32.0-36.0 g/dL Red Cell Distribution Width 16.7 H 11.8-14.3 % Platelet Count 92 L 140-450 10^3/uL Mean Platelet Volume 8.7 6.9-10.8 fL Neutrophils (%) (Auto) 88.0 H 37.0-80.0 % Lymphocytes (%) (Auto) 3.7 L 10.0-50.0 % Monocytes (%) (Auto) 7.3 0.0-12.0 % Eosinophils (%) (Auto) 0.9 0.0-7.0 % Basophils (%) (Auto) 0.1 0.0-2.0 % Neutrophils # (Auto) 8.2 1.6-8.6 10 ^3/uL Lymphocytes # (Auto) 0.3 L 0.4-5.4 10 ^3/uL Monocytes # (Auto) 0.7 0-1.3 10 ^3/uL Eosinophils # (Auto) 0.1 0-0.8 10 ^3/uL Basophils # (Auto) 0 0-0.2 10 ^3/uL Nucleated Red Blood Cells 0.0 % Platelet Estimate Decreased Anisocytosis (manual) Moderate Troponin I High Sensitivity 30 </=54 ng/L Sodium Level 131 L 136-145 mmol/L Potassium Level 4.8 3.5-5.1 mmol/L Chloride Level 101 98-107 mmol/L Carbon Dioxide Level 23 20-31 mmol/L Anion Gap 7 5-15 Blood Urea Nitrogen 38 H 9-23 mg/dL Creatinine 1.39 H 0.700-1.30 mg/dL Glomerular Filtration Rate Calc 54 >90 mL/min BUN/Creatinine Ratio 27.3 H 10.0-20.0 Serum Glucose 59 L 74-106 mg/dL Lactic Acid Level 1.0 0.4-2.0 mmol/L Calcium Level 8.3 L 8.7-10.4 mg/dL Total Bilirubin 0.7 0.2-1.0 mg/dL Aspartate Amino Transferase (AST) 54 H 13-40 U/L Alanine Aminotransferase (ALT) 88 H 7-40 U/L Alkaline Phosphatase 174 H 46-116 U/L B-Type Natriuretic Peptide 390.57 0-100 pg/mL Total Protein 5.6 L 5.7-8.2 g/dL Albumin 3.7 3.2-4.8 g/dL Assessment Generalized weakness. Altered mental status. Fever, unspecified. Elevated liver enzymes. Acute renal injury. Electrolyte imbalance. Acute exacerbation of congestive heart failure. Diabetes mellitus with hypoglycemia. Status post coronary artery bypass graft. Plan/Recommendation I agree with your ongoing assessment and care of plan. CTA angiogram of the chest and bilateral lower extremity Doppler ultrasound. Echocardiogram. Morphine and [place] for pain management. Amlodipine. Aspirin, Lipitor, Metoprolol. IV antibiotics as ordered. Diuretics with Lasix. Additional plan as per the hospital course. Critical care time of 90 minutes provided to include time spent evaluation of patient at bedside, when appropriate patient/family education for diagnosis, treatment plan, review of pertinent medical information and discussion of care with specialty providers and PCP. Plan discussed with: Patient SISSY CABRAL MD Feb 08, 2025 00:09
[2025-02-08] MEDS: DEXTROSE (50%) 50ML SYRG IV PRN (06:40)
[2025-02-08 06:47] LABS: Hematocrit 25.9 % (41.0-53.0); Hemoglobin 9.0 g/dL (13.5-17.5); Mean Corpuscular Hemoglobin 30.7 pg (28.0-32.0); Mean Corpuscular Volume 88.4 fL (80.0-100.0); Nucleated Red Blood Cells % 0.0 %
[2025-02-08 07:10] LABS: Albumin 3.5 g/dL (3.2-4.8); Anion Gap 9 (5-15); BUN/Creatinine Ratio 26.5 (10.0-20.0); Carbon Dioxide 21 mmol/L (20-31); Chloride 102 mmol/L (98-107); Potassium 4.4 mmol/L (3.5-5.1)
[2025-02-08 07:11] LABS: Bilirubin, Total 0.6 mg/dL (0.2-1.0)
[2025-02-08 07:22] LABS: Alanine Aminotransferase 81 U/L (7-40); Alkaline Phosphatase 158 U/L (46-116); Blood Urea Nitrogen 36 mg/dL (9-23); Calcium 7.9 mg/dL (8.7-10.4); Glucose 29 mg/dL (74-106); Sodium 132 mmol/L (136-145); Total Protein 5.5 g/dL (5.7-8.2)
[2025-02-08 07:35] VITALS: PULSE 80; RESP 12; O2SAT 94
[2025-02-08] MEDS: cefTRIAXone 1GM/50ML D5W 50 ML IV SCH (09:51)
[2025-02-08] MEDS: FUROSEMIDE 20 MG/2 ML VIAL IV SCH (09:54)
[2025-02-08] MEDS: AZITHROMYCIN 500MG/ 250ML 250 ML IV SCH (12:25)
[2025-02-08] MEDS: FUROSEMIDE 20 MG/2 ML VIAL IV ONE (12:26)
--- NOTE | 2025-02-08 15:30 | DVHPN2 ---
Subjective I am assuming the care of the patient from today onwards. Patient's has two to 3+ pitting edema. Patient's has a recent open heart surgery at [facility]. Changes from previous H/P or p: No Changes Eyes: No Pain, No Vision change, No Conjunctivae inflammation, No Eyelid inflammation, No Other, No Redness ENT: No Ear pain, No Ear discharge, No Nose pain, No Nose discharge, No Nose congestion, No Mouth pain, No Mouth swelling, No Throat pain, No Throat swelling, No Other Cardiovascular: No Chest Pain, No Palpitations, No Orthopnea, No Paroxysmal Noc. Dyspnea; Edema; No Lt Headedness, No Other Respiratory: No Cough, No Dry, No Shortness of breath, No SOB with excertion, No Wheezing, No Hemoptysis, No Pleuritic Pain, No Sputum, No Other Gastrointestinal: No Nausea, No Vomiting, No Abdominal Pain, No Diarrhea, No Constipation, No Melena, No Hematochezia, No Other Genitourinary: No Dysuria, No Frequency, No Incontinence, No Hematuria, No Retention; Other (Scrotum/penis swelling, Nogueira catheter in place.) Musculoskeletal: other (Lower extremity swelling); No neck pain, No shoulder pain, No arm pain, No back pain, No hand pain, No leg pain, No foot pain Skin: No Rash, No Lesions, No Jaundice, No Bruising; Other (Skin graft bilateral lower extremity) Objective Vitals Vital Signs Date Time Temp Pulse Resp B/P (MAP) Pulse Ox O2 Delivery O2 Flow Rate FiO2 02/08/25 12:26 171/54 02/08/25 12:00 74 02/08/25 09:00 16 91 02/08/25 07:35 Nasal Cannula* 3 32 02/07/25 20:00 98.5 98.5 Intake/Output Intake and Output 02/08/25 07:00 Intake Total 300 ml Balance 300 ml Intake IV Total 300 ml Exam HEENT pupils are reactive Neck is supple CV is S1-S2 regular rate and rhythm Respiratory diminished breath sounds bases GI positive bowel sound Extremity 2+ pitting edema 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 Medications Current Medications Medications Dose Ordered Sig/Ankur Route Start Time Stop Time Status Last Admin Dose Admin Aspirin 81 mg DAILY PO 02/08/25 10:00 02/08/25 09:54 81 MG Atorvastatin Calcium 20 mg HS PO 02/07/25 22:00 02/07/25 22:01 20 MG Metoprolol Tartrate 25 mg BID PO 02/07/25 22:00 Amlodipine Besylate 10 mg DAILY PO 02/08/25 10:00 02/08/25 09:55 10 MG Azithromycin 250 ml @ 125 mls/hr DAILY IV 02/08/25 10:00 02/08/25 12:25 125 MLS/HR Diagnostic Test (Pha) 1 strip ACHS 02/07/25 17:00 02/08/25 12:08 1 STRIP Insulin Human Regular ACHS SC 02/07/25 17:00 02/08/25 12:27 2 UNITS Dextrose 50 ml UD PRN IV 02/07/25 15:30 02/08/25 06:40 50 ML Sodium Chloride 10 ml Q8HR IV 02/07/25 22:00 02/08/25 14:06 10 ML Acetaminophen/ Hydrocodone Bitart 1 tab Q4HP PRN PO 02/07/25 15:30 Ondansetron HCl 4 mg Q4HP PRN IV 02/07/25 15:30 02/07/25 21:03 4 MG Docusate Sodium 100 mg BIDPRN PRN PO 02/07/25 15:30 Acetaminophen 650 mg Q6HP PRN PO 02/07/25 15:30 Nitroglycerin 0.4 mg Q5MINP PRN SL 02/07/25 17:00 Morphine Sulfate 2 mg Q30M PRN IV 02/07/25 17:00 02/07/25 21:04 2 MG Ceftriaxone Sodium 50 ml @ 100 mls/hr DAILY@09 IV 02/08/25 09:00 02/08/25 09:51 100 MLS/HR Furosemide 40 mg BIDD IV 02/08/25 18:00 Laboratory Results Laboratory Tests 02/08/25 05:58 Chemistry Test 02/08/25 05:58 Albumin 3.5 g/dL (3.2-4.8) Calcium Level 7.9 mg/dL (8.7-10.4) L Total Protein 5.5 g/dL (5.7-8.2) L LFT Test 02/08/25 05:58 Alanine Aminotransferase (ALT) 81 U/L (7-40) H Alkaline Phosphatase 158 U/L (46-116) H Aspartate Amino Transferase (AST) 46 U/L (13-40) H Total Bilirubin 0.6 mg/dL (0.2-1.0) Urinalysis Test 02/07/25 20:00 Urine Color Light-yellow (Yellow) Urine Clarity Clear (Clear) Urine pH 5.5 (5.0-9.0) Urine Specific [place] 1.008 (1.001-1.035) Urine Protein Negative (Negative) Urine Ketones Negative (Negative) Urine Blood Negative /uL (Negative) Urine Nitrite Negative (Negative) Urine Bilirubin Negative (Negative) Urine Urobilinogen Normal mg/dL (Negative) Urine Leukocyte Esterase Trace /uL (Negative) Urine RBC 1 /hpf (0 - 3) Urine Microscopic WBC /HPF (0-3) Urine Squamous Epithelial Cells None seen /hpf (<5) Urine Uric Acid Crystals Few /hpf (None Seen) Urine Amorphous Crystals Few /hpf (None Seen) Urine Bacteria None seen /hpf (None Seen) Urine Glucose Normal mg/dL (Normal) Assessment/Plan Assessment/Plan 70-year-old male with a known history of insulin-dependent diabetes mellitus type 2, hypertension, dyslipidemia, CAD status post CABG recently two weeks ago presented to the hospital with the increasing weakness generalized fatigue and fever found to have 1. Generalized weakness 2. Acute CHF exacerbation likely systolic dysfunction 3. CAD status post CABG 4. Organized fluid collection in the anterior mediastinum with a recent CABG 5. Left-sided consolidation 6. MENDEL 7. Uncontrolled hyperglycemia in the setting of insulin-dependent diabetes mellitus type 2 -IV diuretics, insulin sliding scale, 2D echo cardiology consultation. Plan discussed with: Patient, Spouse My Orders Orders - SUSANA MCNEILL MD Procedure Category Date Status Time Furosemide Injection PHA 02/08/25 In Process (Lasix Injection) 18:00 Date of Service: Feb 08, 2025 Billing Provider: SUSANA MCNEILL MD Common Visit Codes: [id number] INP/OBS CARE(MOD), [id number] INP/OBS CARE(HIGH) SUSANA MCNEILL MD Feb 08, 2025 15:30
[2025-02-08] MEDS: FUROSEMIDE 40 MG/4 ML VIAL IV SCH (18:03)
[2025-02-08] MEDS: HYDROcodone-ACET 5/325MG TAB PO PRN (18:04)
[2025-02-08 19:30] VITALS: PULSE 91; RESP 19; O2SAT 94
--- NOTE | 2025-02-08 23:14 | DVHPN2 ---
Progress Note - Dictate Date Seen: Feb 08, 2025 Medical Necessity Reason Pt with a Central, PICC or Fol: No Subjective Patient was seen and evaluated in follow up in the SDU. Patient is complaining of generalized weakness. Patient is on 3 LPM NC. 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 Echocardiogram showed an EF of 60%. CT chest shows trace right and small to moderate-sized left pleural effusions, consolidation of much of the left lower lobe, 6.2 cm organized fluid collection in the anterior mediastinum abutting the chest wall and the pericardium and causing moderate mass effect on the lingula, small pericardial effusion, trace pneumopericardium, acute fractures of the left 1st and 2nd ribs. BLE venous duplex: no evidence of DVTs. vital signs Vital Sign Date Time Temp Pulse Resp B/P (MAP) Pulse Ox O2 Delivery O2 Flow Rate FiO2 02/08/25 12:26 171/54 02/08/25 12:00 74 02/08/25 07:35 12 94 Nasal Cannula* 3 32 02/07/25 20:00 98.5 98.5 Total Intake and Output 02/07/25 02/07/25 02/08/25 15:00 23:00 07:00 Intake Total 300 ml Balance 300 ml medications Current Medications Medications Dose Ordered Sig/Ankur Route Start Time Stop Time Status Last Admin Dose Admin Aspirin 81 mg DAILY PO 02/08/25 10:00 02/08/25 09:54 81 MG Atorvastatin Calcium 20 mg HS PO 02/07/25 22:00 02/07/25 22:01 20 MG Metoprolol Tartrate 25 mg BID PO 02/07/25 22:00 Amlodipine Besylate 10 mg DAILY PO 02/08/25 10:00 02/08/25 09:55 10 MG Azithromycin 250 ml @ 125 mls/hr DAILY IV 02/08/25 10:00 02/08/25 12:25 125 MLS/HR Diagnostic Test (Pha) 1 strip ACHS 02/07/25 17:00 02/08/25 12:08 1 STRIP Insulin Human Regular ACHS SC 02/07/25 17:00 02/08/25 12:27 2 UNITS Dextrose 50 ml UD PRN IV 02/07/25 15:30 02/08/25 06:40 50 ML Sodium Chloride 10 ml Q8HR IV 02/07/25 22:00 02/08/25 06:11 10 ML Acetaminophen/ Hydrocodone Bitart 1 tab Q4HP PRN PO 02/07/25 15:30 Ondansetron HCl 4 mg Q4HP PRN IV 02/07/25 15:30 02/07/25 21:03 4 MG Docusate Sodium 100 mg BIDPRN PRN PO 02/07/25 15:30 Acetaminophen 650 mg Q6HP PRN PO 02/07/25 15:30 Nitroglycerin 0.4 mg Q5MINP PRN SL 02/07/25 17:00 Morphine Sulfate 2 mg Q30M PRN IV 02/07/25 17:00 02/07/25 21:04 2 MG Ceftriaxone Sodium 50 ml @ 100 mls/hr DAILY@09 IV 02/08/25 09:00 02/08/25 09:51 100 MLS/HR Furosemide 40 mg BIDD IV 02/08/25 18:00 objective GENERAL: Alert and oriented x 3. No acute distress. EYES: PERRL, EOMI. Anicteric. HENT: Moist mucous membranes. LUNGS: Clear to auscultation bilaterally. CARDIOVASCULAR: Regular rate and rhythm. ABDOMEN: Soft, non-tender and non-distended. EXTREMITIES: No edema. NEUROLOGIC: No focal neurological deficits. SKIN: Warm, dry. laboratory and microbiology Laboratory Tests 02/08/25 05:58 Test 02/08/25 05:58 Range/Units Serum Glucose 29 *L 74-106 mg/dL Problem List Generalized weakness. Altered mental status. Fever, unspecified. Elevated liver enzymes. Acute renal injury. Electrolyte imbalance. Acute exacerbation of congestive heart failure. Diabetes mellitus with hypoglycemia. Status post coronary artery bypass graft. Assessment/Plan Continued all current supportive medical care. Morphine and [place] for pain management. Amlodipine. Aspirin, Lipitor. IV antibiotics as ordered. Diuretics with Lasix. Additional plan as per the hospital course. Critical care time of 45 minutes provided to include time spent evaluation of patient at bedside, when appropriate patient/family education for diagnosis, treatment plan, review of pertinent medical information and discussion of care with specialty providers and PCP. Plan discussed with: Patient SISSY CABRAL MD Feb 08, 2025 13:41
[2025-02-09] MEDS: dilTIAZem 25 MG/5 ML VIAL IV ONE (01:24)
[2025-02-09] MEDS: AMIODARONE BOLUS KIT 100 ML IV ONE (04:29)
[2025-02-09] MEDS: AMIODARONE 360mg/200mL PREMIX 200 ML IV ONE (04:40)
[2025-02-09 08:00] VITALS: PULSE 129; RESP 15; O2SAT 94
[2025-02-09] MEDS: AMIODARONE 360mg/200mL PREMIX 200 ML IV SCH (10:51)
[2025-02-09] MEDS ORDERED: DEXTROSE (50%) 50ML SYRG IV PRN (13:00)
--- NOTE | 2025-02-09 13:06 | ECG ---
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
[2025-02-09] MEDS: ACCU-CHEK COMFORT CURVE STRIP VI SCH (13:59)
[2025-02-09] MEDS: InsuLIN REG 1unit/0.01ml Soln (100units/ml) SC SCH ×2 (13:59→22:06)
[2025-02-09 16:13] VITALS: PULSE 58; RESP 20; O2SAT 95
--- NOTE | 2025-02-09 16:33 | DVHPN2 ---
Subjective Patient's blood sugars is 420, moderate dose insulin sliding scale, may resume insulin Lantus long-acting. Changes from previous H/P or p: No Changes Eyes: No Pain, No Vision change, No Conjunctivae inflammation, No Eyelid inflammation, No Other, No Redness ENT: No Ear pain, No Ear discharge, No Nose pain, No Nose discharge, No Nose congestion, No Mouth pain, No Mouth swelling, No Throat pain, No Throat swelling, No Other Cardiovascular: No Chest Pain, No Palpitations, No Orthopnea, No Paroxysmal Noc. Dyspnea; Edema; No Lt Headedness, No Other Respiratory: No Cough, No Dry, No Shortness of breath, No SOB with excertion, No Wheezing, No Hemoptysis, No Pleuritic Pain, No Sputum, No Other Gastrointestinal: No Nausea, No Vomiting, No Abdominal Pain, No Diarrhea, No Constipation, No Melena, No Hematochezia, No Other Genitourinary: No Dysuria, No Frequency, No Incontinence, No Hematuria, No Retention; Other (Scrotum/penis swelling, Nogueira catheter in place.) Musculoskeletal: other (Lower extremity swelling); No neck pain, No shoulder pain, No arm pain, No back pain, No hand pain, No leg pain, No foot pain Skin: No Rash, No Lesions, No Jaundice, No Bruising; Other (Skin graft bilateral lower extremity) Objective Vitals Vital Signs Date Time Temp Pulse Resp B/P (MAP) Pulse Ox O2 Delivery O2 Flow Rate FiO2 02/09/25 15:00 63 14 142/57 (85) 94 02/09/25 12:00 98.6 98.6 02/09/25 08:00 Nasal Cannula* 3 32 Intake/Output Intake and Output 02/09/25 07:00 Intake Total 300 ml Output Total 4150 ml Balance -3850 ml Intake IV Total 300 ml Output Urine Total 4150 ml Exam HEENT pupils are reactive Neck is supple CV is S1-S2 regular rate and rhythm Respiratory diminished breath sounds bases GI positive bowel sound Extremity 2+ pitting edema 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 Medications Current Medications Medications Dose Ordered Sig/Ankur Route Start Time Stop Time Status Last Admin Dose Admin Aspirin 81 mg DAILY PO 02/08/25 10:00 02/09/25 11:09 81 MG Atorvastatin Calcium 20 mg HS PO 02/07/25 22:00 02/08/25 21:59 20 MG Metoprolol Tartrate 25 mg BID PO 02/07/25 22:00 02/09/25 11:10 25 MG Amlodipine Besylate 10 mg DAILY PO 02/08/25 10:00 02/09/25 11:10 10 MG Azithromycin 250 ml @ 125 mls/hr DAILY IV 02/08/25 10:00 02/09/25 11:54 125 MLS/HR Sodium Chloride 10 ml Q8HR IV 02/07/25 22:00 02/09/25 14:23 10 ML Acetaminophen/ Hydrocodone Bitart 1 tab Q4HP PRN PO 02/07/25 15:30 02/09/25 11:14 1 TAB Ondansetron HCl 4 mg Q4HP PRN IV 02/07/25 15:30 02/07/25 21:03 4 MG Docusate Sodium 100 mg BIDPRN PRN PO 02/07/25 15:30 Acetaminophen 650 mg Q6HP PRN PO 02/07/25 15:30 Nitroglycerin 0.4 mg Q5MINP PRN SL 02/07/25 17:00 Morphine Sulfate 2 mg Q30M PRN IV 02/07/25 17:00 02/07/25 21:04 2 MG Ceftriaxone Sodium 50 ml @ 100 mls/hr DAILY@09 IV 02/08/25 09:00 02/09/25 11:09 100 MLS/HR Furosemide 40 mg BIDD IV 02/08/25 18:00 02/09/25 05:39 40 MG Diagnostic Test (Pha) 1 strip ACHS 02/09/25 17:00 02/09/25 13:59 1 STRIP Insulin Human Regular HS SC 02/09/25 22:00 Insulin Human Regular AC SC 02/09/25 17:00 02/09/25 13:59 15 UNITS Dextrose 50 ml UD PRN IV 02/09/25 13:00 Laboratory Results Laboratory Tests 02/08/25 05:58 Urinalysis Test 02/07/25 20:00 Urine Color Light-yellow (Yellow) Urine Clarity Clear (Clear) Urine pH 5.5 (5.0-9.0) Urine Specific [place] 1.008 (1.001-1.035) Urine Protein Negative (Negative) Urine Ketones Negative (Negative) Urine Blood Negative /uL (Negative) Urine Nitrite Negative (Negative) Urine Bilirubin Negative (Negative) Urine Urobilinogen Normal mg/dL (Negative) Urine Leukocyte Esterase Trace /uL (Negative) Urine RBC 1 /hpf (0 - 3) Urine Microscopic WBC /HPF (0-3) Urine Squamous Epithelial Cells None seen /hpf (<5) Urine Uric Acid Crystals Few /hpf (None Seen) Urine Amorphous Crystals Few /hpf (None Seen) Urine Bacteria None seen /hpf (None Seen) Urine Glucose Normal mg/dL (Normal) Assessment/Plan Assessment/Plan 70-year-old male with a known history of insulin-dependent diabetes mellitus type 2, hypertension, dyslipidemia, CAD status post CABG recently two weeks ago presented to the hospital with the increasing weakness generalized fatigue and fever found to have 1. Generalized weakness 2. Acute CHF exacerbation likely systolic dysfunction 3. CAD status post CABG 4. Organized fluid collection in the anterior mediastinum with a recent CABG 5. Left-sided consolidation 6. MENDEL 7. Uncontrolled hyperglycemia in the setting of insulin-dependent diabetes mellitus type 2 -IV diuretics, insulin sliding scale, 2D echo cardiology consultation. -IR consult for anterior mediastinum fluid collection, check coags Plan discussed with: Patient My Orders Orders - SUSANA MCNEILL MD Procedure Category Date Status Time Glucose Blood PHA 02/09/25 In Process (Accu-Chek Comfort 17:00 Insulin R (Human) PHA 02/09/25 In Process (Insulin R) 22:00 Insulin R (Human) PHA 02/09/25 In Process (Insulin R) 17:00 Dextrose 50% Syringe PHA 02/09/25 In Process 13:00 Transfer Orders XFER 02/09/25 Transmitted 15:09 * Radiologist Consult CONS 02/09/25 Transmitted 15:25 Prothrombin Time W/ LAB 02/09/25 Logged INR 15:25 Npo (Nothing By DIET 02/10/25 Transmitted Mouth) Diet Breakfast Pt Request For Service PT 02/09/25 Logged 15:58 Consistent DIET 02/09/25 Transmitted Carb(Ccho)Diabetes Dinner Heparin Sodium PHA 02/09/25 Logged (Porcine) 22:00 (Nf) Insulin Glargine PHA 02/10/25 Logged (Lantus Solostar) 07:00 (Nf) Insulin Glargine PHA 02/09/25 Logged (Lantus Solostar) 18:00 Date of Service: Feb 09, 2025 Billing Provider: SUSANA MCNEILL MD Common Visit Codes: [id number] INP/OBS CARE(HIGH) SUSANA MCNEILL MD Feb 09, 2025 16:33
[2025-02-09 17:56] LABS: INR 1.15 (0.9-1.15); Prothrombin Time 12.0 sec (9.3-11.8)
[2025-02-09] MEDS ORDERED: INSULIN GLARGINE 30 UNIT SC SCH (18:00)
[2025-02-09 20:00] VITALS: PULSE 73
[2025-02-09 21:00] VITALS: BP 139/76; PULSE 69; RESP 18; TEMP 98.3; O2SAT 91
[2025-02-09] MEDS: HEPARIN SODIUM (PORCINE) 5000 UNITS/ML 1ML VIAL SC SCH (21:59)
--- NOTE | 2025-02-09 23:07 | DVHPN2 ---
Progress Note - Dictate Date Seen: Feb 09, 2025 Medical Necessity Reason Pt with a Central, PICC or Fol: No Subjective Patient was seen and evaluated in follow up in the SDU. Overnight, patients HR went into the 130's and was started on Cardizem drip. There was no improvement with Cardizem and the patient was stared on Diltazem which also did not improve his HR and was switched to Amiodarone bolus and drip. Patient is complaining of penile/scrotal redness and swelling. BS are in the 280's. vital signs Vital Sign Date Time Temp Pulse Resp B/P (MAP) Pulse Ox O2 Delivery O2 Flow Rate FiO2 02/09/25 11:10 144/68 02/09/25 11:10 68 02/09/25 08:00 98.8 15 94 98.8 02/09/25 08:00 Nasal Cannula* 3 32 Total Intake and Output 02/08/25 02/08/25 02/09/25 15:00 23:00 07:00 Intake Total 50 ml 250 ml Output Total 3050 ml 1100 ml Balance 50 ml -2800 ml -1100 ml medications Current Medications Medications Dose Ordered Sig/Ankur Route Start Time Stop Time Status Last Admin Dose Admin Aspirin 81 mg DAILY PO 02/08/25 10:00 02/09/25 11:09 81 MG Atorvastatin Calcium 20 mg HS PO 02/07/25 22:00 02/08/25 21:59 20 MG Metoprolol Tartrate 25 mg BID PO 02/07/25 22:00 02/09/25 11:10 25 MG Amlodipine Besylate 10 mg DAILY PO 02/08/25 10:00 02/09/25 11:10 10 MG Azithromycin 250 ml @ 125 mls/hr DAILY IV 02/08/25 10:00 02/09/25 11:54 125 MLS/HR Diagnostic Test (Pha) 1 strip ACHS 02/07/25 17:00 02/09/25 06:40 1 STRIP Insulin Human Regular ACHS SC 02/07/25 17:00 02/09/25 06:45 6 UNITS Dextrose 50 ml UD PRN IV 02/07/25 15:30 02/08/25 06:40 50 ML Sodium Chloride 10 ml Q8HR IV 02/07/25 22:00 02/09/25 05:39 10 ML Acetaminophen/ Hydrocodone Bitart 1 tab Q4HP PRN PO 02/07/25 15:30 02/09/25 11:14 1 TAB Ondansetron HCl 4 mg Q4HP PRN IV 02/07/25 15:30 02/07/25 21:03 4 MG Docusate Sodium 100 mg BIDPRN PRN PO 02/07/25 15:30 Acetaminophen 650 mg Q6HP PRN PO 02/07/25 15:30 Nitroglycerin 0.4 mg Q5MINP PRN SL 02/07/25 17:00 Morphine Sulfate 2 mg Q30M PRN IV 02/07/25 17:00 02/07/25 21:04 2 MG Ceftriaxone Sodium 50 ml @ 100 mls/hr DAILY@09 IV 02/08/25 09:00 02/09/25 11:09 100 MLS/HR Furosemide 40 mg BIDD IV 02/08/25 18:00 02/09/25 05:39 40 MG objective GENERAL: Alert and oriented x 3. No acute distress. EYES: PERRL, EOMI. Anicteric. HENT: Moist mucous membranes. LUNGS: Clear to auscultation bilaterally. CARDIOVASCULAR: Regular rate and rhythm. ABDOMEN: Soft, non-tender and non-distended. EXTREMITIES: No edema. NEUROLOGIC: No focal neurological deficits. SKIN: Warm, dry. laboratory and microbiology Laboratory Tests 02/08/25 05:58 Test 02/08/25 05:58 Range/Units Serum Glucose 29 *L 74-106 mg/dL Problem List Generalized weakness. Altered mental status. Fever, unspecified. Elevated liver enzymes. Acute renal injury. Electrolyte imbalance. Acute exacerbation of congestive heart failure. Diabetes mellitus with hypoglycemia. Status post coronary artery bypass graft. Assessment/Plan Continued all current supportive medical care. IV Amiodarone. [place] for pain management. Amlodipine. Aspirin, Lipitor, Metoprolol. IV antibiotics as ordered. Diuretics with Lasix. Additional plan as per the hospital course. Critical care time of 45 minutes provided to include time spent evaluation of patient at bedside, when appropriate patient/family education for diagnosis, treatment plan, review of pertinent medical information and discussion of care with specialty providers and PCP. Plan discussed with: Patient SISSY CABRAL MD Feb 09, 2025 12:17
[2025-02-10] VITALS (9 sets, daily range): BP systolic 127–157; BP diastolic 67–83; PULSE 58–79; RESP 16–19; TEMP 97.7–98.6; O2SAT 93–98
[2025-02-10] MEDS: INSULIN LANTUS (GLARGINE) 1 /0.01ml (100units/ml) SC SCH (06:08)
[2025-02-10 10:41] LABS: Hematocrit 26.7 % (41.0-53.0); Hemoglobin 9.2 g/dL (13.5-17.5); Mean Corpuscular Hemoglobin 30.6 pg (28.0-32.0); Mean Corpuscular Volume 89.3 fL (80.0-100.0); Nucleated Red Blood Cells % 0.2 %
[2025-02-10 11:04] LABS: Albumin 3.3 g/dL (3.2-4.8); Anion Gap 9 (5-15); BUN/Creatinine Ratio 22.4 (10.0-20.0); Bilirubin, Total 0.4 mg/dL (0.2-1.0); Carbon Dioxide 26 mmol/L (20-31); Chloride 100 mmol/L (98-107); Potassium 4.3 mmol/L (3.5-5.1)
[2025-02-10 11:06] LABS: Alanine Aminotransferase 57 U/L (7-40); Alkaline Phosphatase 123 U/L (46-116); Blood Urea Nitrogen 28 mg/dL (9-23); Calcium 8.0 mg/dL (8.7-10.4); Glucose 183 mg/dL (74-106); Sodium 135 mmol/L (136-145); Total Protein 5.1 g/dL (5.7-8.2)
[2025-02-10] MEDS: LIDOCAINE 2%HCL (LOCAL ANESTH.) INJ 10ml MDV ONE (13:32)
--- NOTE | 2025-02-10 15:57 | DVH ---
PROCEDURE: Drainage catheter placement Procedural Personnel Attending physician(s): Arturo Richardson Fellow physician(s): None Resident physician(s): None Advanced practice provider(s): None Pre-procedure diagnosis: Anterior mediastinal fluid collection Post-procedure diagnosis: Anterior mediastinal hematoma Indication: Post-operative fluid collection Additional clinical history: None Complications: No immediate complications. IMPRESSION: Percutaneous placement of a 8.5 panamanian drainage catheter into anterior mediastinal collection, yieldi ng 40 mL of bloody fluid. Plan: Keep drain to -15 cm H2O wall suction; Treat removal similar to chest tube removal. PROCEDURE SUMMARY: - Visceral drainage catheter placement under CT guidance - Additional procedure(s): None PROCEDURE DETAILS: Pre-procedure Consent: Informed consent for the procedure including risks, benefits and alternatives was obtained a nd time-out was performed prior to the procedure. Preparation: The site was prepared and draped using maximal sterile barrier technique including cutan eous antisepsis. Anesthesia/sedation Level of anesthesia/sedation: No sedation Anesthesia/sedation administered by: Not applicable Total intra-service sedation time (minutes): 0 Drainage catheter placement The patient was positioned supine. Initial imaging was performed. Local anesthesia was administered. The fluid collection was accessed using an access needle followed by wire insertion and serial dilati on and a drainage catheter was placed. Position of the drainage catheter within the fluid collection was confirmed. Initial imaging findings: Anterior mediastinal collection Access route: Percutaneous Drainage catheter placed: Multipurpose drain Drain size (Fr): 8.5 External catheter securement: Non-absorbable suture and adhesive anchoring device Drainage catheter contrast injection: No Final imaging findings: Near-complete drainage of the fluid collection Contrast Contrast agent: None Contrast volume (mL): [address] dose length product (mGy-cm): 1007.61 Additional Details Additional description of procedure: None Registry event: V/3/f Device used: None Equipment details: None Specimens removed: 40 mL of bloody fluid. Aspirated fluid was sent for analysis. Estimated blood loss (mL): Less than 10 Standardized report: [email or web address] Attestation Signer name: Arturo Richardson I attest that I was present for the entire procedure. I reviewed the stored images and agree with the report as written.
--- NOTE | 2025-02-10 16:28 | DVHPN2 ---
Subjective Patient's blood sugars are running between 2 to 300s, patient is status post IR catheter placement in the superior mediastinum collection Changes from previous H/P or p: No Changes Eyes: No Pain, No Vision change, No Conjunctivae inflammation, No Eyelid inflammation, No Other, No Redness ENT: No Ear pain, No Ear discharge, No Nose pain, No Nose discharge, No Nose congestion, No Mouth pain, No Mouth swelling, No Throat pain, No Throat swelling, No Other Cardiovascular: No Chest Pain, No Palpitations, No Orthopnea, No Paroxysmal Noc. Dyspnea; Edema; No Lt Headedness, No Other Respiratory: No Cough, No Dry, No Shortness of breath, No SOB with excertion, No Wheezing, No Hemoptysis, No Pleuritic Pain, No Sputum, No Other Gastrointestinal: No Nausea, No Vomiting, No Abdominal Pain, No Diarrhea, No Constipation, No Melena, No Hematochezia, No Other Genitourinary: No Dysuria, No Frequency, No Incontinence, No Hematuria, No Retention; Other (Scrotum/penis swelling, Nogueira catheter in place.) Musculoskeletal: other (Lower extremity swelling); No neck pain, No shoulder pain, No arm pain, No back pain, No hand pain, No leg pain, No foot pain Skin: No Rash, No Lesions, No Jaundice, No Bruising; Other (Skin graft bilateral lower extremity) Objective Vitals Vital Signs Date Time Temp Pulse Resp B/P (MAP) Pulse Ox O2 Delivery O2 Flow Rate FiO2 02/10/25 13:30 98.1 58 18 129/76 (93) 98 98.1 02/10/25 08:00 Nasal Cannula* 3 32 Intake/Output Intake and Output 02/10/25 07:00 Intake Total 733.28 ml Output Total 1150 ml Balance -416.72 ml Intake Oral 300 ml IV Total 433.28 ml Output Urine Total 1150 ml Exam HEENT pupils are reactive Neck is supple CV is S1-S2 regular rate and rhythm Respiratory diminished breath sounds bases GI positive bowel sound Extremity 2+ pitting edema PM HEAD COOK no motor deficit Medications Current Medications Medications Dose Ordered Sig/Ankur Route Start Time Stop Time Status Last Admin Dose Admin Aspirin 81 mg DAILY PO 02/08/25 10:00 02/09/25 11:09 81 MG Atorvastatin Calcium 20 mg HS PO 02/07/25 22:00 02/09/25 21:58 20 MG Metoprolol Tartrate 25 mg BID PO 02/07/25 22:00 02/10/25 10:10 25 MG Amlodipine Besylate 10 mg DAILY PO 02/08/25 10:00 02/10/25 10:11 10 MG Azithromycin 250 ml @ 125 mls/hr DAILY IV 02/08/25 10:00 02/10/25 10:10 125 MLS/HR Sodium Chloride 10 ml Q8HR IV 02/07/25 22:00 02/10/25 14:00 10 ML Acetaminophen/ Hydrocodone Bitart 1 tab Q4HP PRN PO 02/07/25 15:30 02/10/25 15:54 1 TAB Ondansetron HCl 4 mg Q4HP PRN IV 02/07/25 15:30 02/07/25 21:03 4 MG Docusate Sodium 100 mg BIDPRN PRN PO 02/07/25 15:30 Acetaminophen 650 mg Q6HP PRN PO 02/07/25 15:30 Nitroglycerin 0.4 mg Q5MINP PRN SL 02/07/25 17:00 Morphine Sulfate 2 mg Q30M PRN IV 02/07/25 17:00 02/07/25 21:04 2 MG Ceftriaxone Sodium 50 ml @ 100 mls/hr DAILY@09 IV 02/08/25 09:00 02/10/25 08:37 100 MLS/HR Furosemide 40 mg BIDD IV 02/08/25 18:00 02/10/25 05:27 40 MG Diagnostic Test (Pha) 1 strip ACHS 02/09/25 17:00 02/10/25 11:52 1 STRIP Insulin Human Regular HS SC 02/09/25 22:00 02/09/25 22:06 4 UNITS Insulin Human Regular AC SC 02/09/25 17:00 02/10/25 11:51 6 UNITS Dextrose 50 ml UD PRN IV 02/09/25 13:00 Heparin Sodium (Porcine) 5,000 units Q12HR SC 02/09/25 22:00 Insulin Glargine 20 units QAM SC 02/10/25 07:00 02/10/25 06:08 20 UNITS Laboratory Results Laboratory Tests 02/10/25 10:20 Chemistry Test 02/10/25 10:20 Albumin 3.3 g/dL (3.2-4.8) Calcium Level 8.0 mg/dL (8.7-10.4) L Total Protein 5.1 g/dL (5.7-8.2) L Coagulation Test 02/09/25 17:31 Prothrombin Time 12.0 sec (9.3-11.8) H Prothrombin Time INR 1.15 (0.9-1.15) LFT Test 02/10/25 10:20 Alanine Aminotransferase (ALT) 57 U/L (7-40) H Alkaline Phosphatase 123 U/L (46-116) H Aspartate Amino Transferase (AST) 26 U/L (13-40) Total Bilirubin 0.4 mg/dL (0.2-1.0) Urinalysis Test 02/07/25 20:00 Urine Color Light-yellow (Yellow) Urine Clarity Clear (Clear) Urine pH 5.5 (5.0-9.0) Urine Specific [place] 1.008 (1.001-1.035) Urine Protein Negative (Negative) Urine Ketones Negative (Negative) Urine Blood Negative /uL (Negative) Urine Nitrite Negative (Negative) Urine Bilirubin Negative (Negative) Urine Urobilinogen Normal mg/dL (Negative) Urine Leukocyte Esterase Trace /uL (Negative) Urine RBC 1 /hpf (0 - 3) Urine Microscopic WBC /HPF (0-3) Urine Squamous Epithelial Cells None seen /hpf (<5) Urine Uric Acid Crystals Few /hpf (None Seen) Urine Amorphous Crystals Few /hpf (None Seen) Urine Bacteria None seen /hpf (None Seen) Urine Glucose Normal mg/dL (Normal) Assessment/Plan Assessment/Plan 70-year-old male with a known history of insulin-dependent diabetes mellitus type 2, hypertension, dyslipidemia, CAD status post CABG recently two weeks ago presented to the hospital with the increasing weakness generalized fatigue and fever found to have 1. Generalized weakness 2. Acute CHF exacerbation likely systolic dysfunction 3. CAD status post CABG 4. Organized fluid collection in the anterior mediastinum with a recent CABG status post IR drainage with a catheter placement in-situ 5. Left-sided consolidation 6. MENDEL 7. Uncontrolled hyperglycemia in the setting of insulin-dependent diabetes mellitus type 2 -IV diuretics, insulin sliding scale, 2D echo cardiology consultation appreciated. -status post IR procedure, we will follow up cultures. Plan discussed with: Patient My Orders Orders - SUSANA MCNEILL MD Procedure Category Date Status Time Heparin Sodium PHA 02/09/25 In Process (Porcine) 22:00 Insulin Lantus PHA 02/10/25 In Process (Glargine) (Lantus) 07:00 * Skiver Sock Linings CONS 02/09/25 Transmitted Consult Consistent DIET 02/10/25 Transmitted Carb(Ccho)Diabetes Dinner Date of Service: Feb 10, 2025 Billing Provider: SUSANA MCNEILL MD Common Visit Codes: [id number] INP/OBS CARE(MOD) SUSANA MCNEILL MD Feb 10, 2025 16:28
--- NOTE | 2025-02-10 17:32 | DVHPN2 ---
Consult Progress Note Subjective Other Systems: Patient in normal sinus rhythm with bigeminy PVCs on registered nurse cardiac at time of assessment. Patient recently returned from procedure with Interventional Radiology. Objective vital signs Vital Sign Date Time Temp Pulse Resp B/P (MAP) Pulse Ox O2 Delivery O2 Flow Rate FiO2 02/10/25 16:29 98.3 58 17 157/81 (106) 93 98.3 02/10/25 08:00 Nasal Cannula* 3 32 Total Intake and Output 02/09/25 02/09/25 02/10/25 15:00 23:00 07:00 Intake Total 366.64 ml 66.64 ml 300 ml Output Total 400 ml 750 ml Balance 366.64 ml -333.36 ml -450 ml medications Current Medications Medications Dose Ordered Sig/Ankur Route Start Time Stop Time Status Last Admin Dose Admin Aspirin 81 mg DAILY PO 02/08/25 10:00 02/09/25 11:09 81 MG Atorvastatin Calcium 20 mg HS PO 02/07/25 22:00 02/09/25 21:58 20 MG Metoprolol Tartrate 25 mg BID PO 02/07/25 22:00 02/10/25 10:10 25 MG Amlodipine Besylate 10 mg DAILY PO 02/08/25 10:00 02/10/25 10:11 10 MG Azithromycin 250 ml @ 125 mls/hr DAILY IV 02/08/25 10:00 02/10/25 10:10 125 MLS/HR Sodium Chloride 10 ml Q8HR IV 02/07/25 22:00 02/10/25 14:00 10 ML Acetaminophen/ Hydrocodone Bitart 1 tab Q4HP PRN PO 02/07/25 15:30 02/10/25 15:54 1 TAB Ondansetron HCl 4 mg Q4HP PRN IV 02/07/25 15:30 02/07/25 21:03 4 MG Docusate Sodium 100 mg BIDPRN PRN PO 02/07/25 15:30 Acetaminophen 650 mg Q6HP PRN PO 02/07/25 15:30 Nitroglycerin 0.4 mg Q5MINP PRN SL 02/07/25 17:00 Morphine Sulfate 2 mg Q30M PRN IV 02/07/25 17:00 02/07/25 21:04 2 MG Ceftriaxone Sodium 50 ml @ 100 mls/hr DAILY@09 IV 02/08/25 09:00 02/10/25 08:37 100 MLS/HR Furosemide 40 mg BIDD IV 02/08/25 18:00 02/10/25 05:27 40 MG Diagnostic Test (Pha) 1 strip ACHS 02/09/25 17:00 02/10/25 11:52 1 STRIP Insulin Human Regular HS SC 02/09/25 22:00 02/09/25 22:06 4 UNITS Insulin Human Regular AC SC 02/09/25 17:00 02/10/25 11:51 6 UNITS Dextrose 50 ml UD PRN IV 02/09/25 13:00 Heparin Sodium (Porcine) 5,000 units Q12HR SC 02/09/25 22:00 Insulin Glargine 20 units QAM SC 02/10/25 07:00 02/10/25 06:08 20 UNITS Examination: GENERAL:Abnormal (Generalized weakness), LUNGS:Normal, CVS:Normal, SKIN:Abnormal (Multiple opened wounds to bilateral lower extremities. Healing vertical scar to midline chest. Pigtail drain to upper anterior chest.), NEURO:Normal laboratory and microbiology Laboratory Tests 02/10/25 10:20 Test 02/10/25 10:20 Range/Units Serum Glucose 183 #H 74-106 mg/dL Problem List/Assessment/Plan Problem List/Assessment/Plan Coronary artery disease status post triple-vessel CABG on 01/16/25 Fluid collection in anterior mediastinum Acute on chronic HFpEF, NYHA class III Hypertension Dyslipidemia Acute left 1st and 2nd rib fracture (per chest CT) Pulmonary hypertension, moderate degree Insulin-dependent Type 2 diabetes mellitus History of CVA without residual deficit Obesity Plan/recommendations (Dr. Couch): Case discussed with Dr. Couch and patient seen on behalf of Dr. Couch. A transthoracic echocardiogram done on this admission reveals EF of 60% with mild LV diastolic dysfunction, RVSP 44 mmHg. Today, the patient underwent pigtail catheter placement to anterior mediastinum. At the time of assessment, serosanguineous fluid noted in drain, approximately 50 cc. At the time of assessment, the patient denies any cardiac symptoms. The patient noted to have bigeminy PVCs on registered nurse cardiac. Patient is in normal sinus rhythm. We will order magnesium level. Continue with blood pressure control, single antiplatelet therapy, and lipid-lowering agent. Continue with close cardiac surveillance. Thank you for allowing us to care for this patient. Please call with any questions or concerns. This medical document was created using an electronic medical record system with voice recognition software and computerized dictation system. Although this document has been carefully reviewed, there might still be some phonetic and typographical errors. Occasional wrong-word or ``sound-alike substitutions may have occurred due to the inherent limitations of voice recognition software. These areas are purely typographical due to imperfections of the software programs and do not reflect any compromise in the patient's medical care. Please read the chart carefully and recognize, using context, where these substitutions have occurred. Plan discussed with: Patient, Daughter Dietary Evaluation Review Comments: Nutrition Recommendation 1) [place] 1 pk BID 2) Consider CCHO 60gm + cardiac diet 3) Monitor PO intake, lab values, weight trend, and I/O Expected Outcomes/Goals: Wound to improve Lab values to improve Fu 2-3 days Date of Service: Feb 10, 2025 Billing Provider: ISAI ZELAYA Common Visit Codes: [id number] INP/OBS CARE(HIGH) ISAI ZELAYA Feb 10, 2025 17:32
[2025-02-10] MEDS: MAGNESIUM SULFATE 1GM/100ML 100 ML IV ONE (18:38)
--- NOTE | 2025-02-10 19:14 | DVHPN2 ---
Progress Note - Dictate Date Seen: Feb 10, 2025 Medical Necessity Reason Pt with a Central, PICC or Fol: No Subjective Patient was seen and evaluated in follow up. Patient was downgraded to telemetry. Patient is in normal sinus rhythm with bigeminy PVCs on geophysical prospector at time of assessment. Patient recently returned from procedure with Interventional Radiology. HGB 9.2, HCT 26.7, BUN 28, GLUC 216. Telemetry reviewed. vital signs Vital Sign Date Time Temp Pulse Resp B/P (MAP) Pulse Ox O2 Delivery O2 Flow Rate FiO2 02/10/25 11:44 58 149/69 02/10/25 08:59 97.7 17 94 97.7 02/10/25 08:00 Nasal Cannula* 3 32 Total Intake and Output 02/09/25 02/09/25 02/10/25 15:00 23:00 07:00 Intake Total 366.64 ml 66.64 ml 300 ml Output Total 400 ml 750 ml Balance 366.64 ml -333.36 ml -450 ml medications Current Medications Medications Dose Ordered Sig/Ankur Route Start Time Stop Time Status Last Admin Dose Admin Aspirin 81 mg DAILY PO 02/08/25 10:00 02/09/25 11:09 81 MG Atorvastatin Calcium 20 mg HS PO 02/07/25 22:00 02/09/25 21:58 20 MG Metoprolol Tartrate 25 mg BID PO 02/07/25 22:00 02/10/25 10:10 25 MG Amlodipine Besylate 10 mg DAILY PO 02/08/25 10:00 02/10/25 10:11 10 MG Azithromycin 250 ml @ 125 mls/hr DAILY IV 02/08/25 10:00 02/10/25 10:10 125 MLS/HR Sodium Chloride 10 ml Q8HR IV 02/07/25 22:00 02/10/25 05:26 10 ML Acetaminophen/ Hydrocodone Bitart 1 tab Q4HP PRN PO 02/07/25 15:30 02/10/25 08:41 1 TAB Ondansetron HCl 4 mg Q4HP PRN IV 02/07/25 15:30 02/07/25 21:03 4 MG Docusate Sodium 100 mg BIDPRN PRN PO 02/07/25 15:30 Acetaminophen 650 mg Q6HP PRN PO 02/07/25 15:30 Nitroglycerin 0.4 mg Q5MINP PRN SL 02/07/25 17:00 Morphine Sulfate 2 mg Q30M PRN IV 02/07/25 17:00 02/07/25 21:04 2 MG Ceftriaxone Sodium 50 ml @ 100 mls/hr DAILY@09 IV 02/08/25 09:00 02/10/25 08:37 100 MLS/HR Furosemide 40 mg BIDD IV 02/08/25 18:00 02/10/25 05:27 40 MG Diagnostic Test (Pha) 1 strip ACHS 02/09/25 17:00 02/10/25 11:52 1 STRIP Insulin Human Regular HS SC 02/09/25 22:00 02/09/25 22:06 4 UNITS Insulin Human Regular AC SC 02/09/25 17:00 02/10/25 11:51 6 UNITS Dextrose 50 ml UD PRN IV 02/09/25 13:00 Heparin Sodium (Porcine) 5,000 units Q12HR SC 02/09/25 22:00 Insulin Glargine 20 units QAM SC 02/10/25 07:00 02/10/25 06:08 20 UNITS objective GENERAL: Alert and oriented x 3. No acute distress. EYES: PERRL, EOMI. Anicteric. HENT: Moist mucous membranes. LUNGS: Clear to auscultation bilaterally. CARDIOVASCULAR: Regular rate and rhythm. ABDOMEN: Soft, non-tender and non-distended. EXTREMITIES: No edema. NEUROLOGIC: No focal neurological deficits. SKIN: Multiple opened wounds to bilateral lower extremities. Healing vertical scar to midline chest. Pigtail drain to upper anterior chest. laboratory and microbiology Laboratory Tests 02/10/25 10:20 Test 02/10/25 10:20 Range/Units Serum Glucose 183 #H 74-106 mg/dL Problem List Coronary artery disease status post triple-vessel CABG on 01/16/25. Fluid collection in anterior mediastinum. Acute on chronic HFpEF, NYHA class III. Hypertension . Dyslipidemia . Acute left 1st and 2nd rib fracture (per chest CT). Pulmonary hypertension, moderate degree. Insulin-dependent Type 2 diabetes mellitus . History of CVA without residual deficit . Obesity. Assessment/Plan Continued all current supportive medical care. Patient has been seen by Zainab Robles NP on my behalf, her and I discussed the plan with the patient. A transthoracic echocardiogram done on this admission reveals EF of 60% with mild LV diastolic dysfunction, RVSP 44 mmHg. Today, the patient underwent pigtail catheter placement to anterior mediastinum. At the time of assessment, serosanguineous fluid noted in drain, approximately 50 cc. At the time of assessment, the patient denies any cardiac symptoms. The patient noted to have bigeminy PVCs on geophysical prospector. Patient is in normal sinus rhythm. We will order magnesium level. Continue with blood pressure control, single antiplatelet therapy, and lipid- lowering agent. Continue with close cardiac surveillance. Additional plan as per the hospital course. Date of Service: Feb 10, 2025 Billing Provider: SISSY CABRAL MD Common Visit Codes: [id number] INP/OBS CARE(HIGH) Plan discussed with: Patient SISSY CABRAL MD Feb 10, 2025 13:41
[2025-02-11] VITALS (8 sets, daily range): BP systolic 147–159; BP diastolic 65–81; PULSE 65–86; RESP 16–18; TEMP 98.1–98.8; O2SAT 90–95
--- NOTE | 2025-02-11 09:43 | DVHPN2 ---
Subjective No cardiac events reported Remained sinus rhythm Reviewed: Care Plan Changes from previous H/P or p: No Changes Eyes: No Pain, No Vision change, No Conjunctivae inflammation, No Eyelid inflammation, No Other, No Redness ENT: No Ear pain, No Ear discharge, No Nose pain, No Nose discharge, No Nose congestion, No Mouth pain, No Mouth swelling, No Throat pain, No Throat swelling, No Other Cardiovascular: No Chest Pain, No Palpitations, No Orthopnea, No Paroxysmal Noc. Dyspnea; Edema; No Lt Headedness, No Other Respiratory: No Cough, No Dry, No Shortness of breath, No SOB with excertion, No Wheezing, No Hemoptysis, No Pleuritic Pain, No Sputum, No Other Gastrointestinal: No Nausea, No Vomiting, No Abdominal Pain, No Diarrhea, No Constipation, No Melena, No Hematochezia, No Other Genitourinary: No Dysuria, No Frequency, No Incontinence, No Hematuria, No Retention; Other (Scrotum/penis swelling, Nogueira catheter in place.) Musculoskeletal: other (Lower extremity swelling); No neck pain, No shoulder pain, No arm pain, No back pain, No hand pain, No leg pain, No foot pain Skin: No Rash, No Lesions, No Jaundice, No Bruising; Other (Skin graft bilateral lower extremity) Objective Vitals Vital Signs Date Time Temp Pulse Resp B/P (MAP) Pulse Ox O2 Delivery O2 Flow Rate FiO2 02/11/25 08:53 98.8 69 18 159/65 (96) 95 98.8 02/10/25 20:06 Nasal Cannula* 3 32 Intake/Output Intake and Output 02/11/25 07:00 Intake Total 816.64 ml Output Total 3850 ml Balance -3033.36 ml Intake Oral 450 ml IV Total 366.64 ml Output Urine Total 3850 ml Medications Current Medications Medications Dose Ordered Sig/Ankur Route Start Time Stop Time Status Last Admin Dose Admin Aspirin 81 mg DAILY PO 02/08/25 10:00 02/11/25 08:52 81 MG Atorvastatin Calcium 20 mg HS PO 02/07/25 22:00 02/10/25 22:00 20 MG Metoprolol Tartrate 25 mg BID PO 02/07/25 22:00 02/11/25 08:51 25 MG Amlodipine Besylate 10 mg DAILY PO 02/08/25 10:00 02/11/25 08:52 10 MG Azithromycin 250 ml @ 125 mls/hr DAILY IV 02/08/25 10:00 02/11/25 08:52 125 MLS/HR Sodium Chloride 10 ml Q8HR IV 02/07/25 22:00 02/11/25 05:08 10 ML Acetaminophen/ Hydrocodone Bitart 1 tab Q4HP PRN PO 02/07/25 15:30 02/11/25 06:09 1 TAB Ondansetron HCl 4 mg Q4HP PRN IV 02/07/25 15:30 02/07/25 21:03 4 MG Docusate Sodium 100 mg BIDPRN PRN PO 02/07/25 15:30 Acetaminophen 650 mg Q6HP PRN PO 02/07/25 15:30 Nitroglycerin 0.4 mg Q5MINP PRN SL 02/07/25 17:00 Morphine Sulfate 2 mg Q30M PRN IV 02/07/25 17:00 02/07/25 21:04 2 MG Ceftriaxone Sodium 50 ml @ 100 mls/hr DAILY@09 IV 02/08/25 09:00 02/11/25 08:52 100 MLS/HR Furosemide 40 mg BIDD IV 02/08/25 18:00 02/11/25 05:07 40 MG Diagnostic Test (Pha) 1 strip ACHS 02/09/25 17:00 02/11/25 06:05 1 STRIP Insulin Human Regular HS IN 02/09/25 22:00 02/10/25 22:00 4 UNITS Insulin Human Regular AC SC 02/09/25 17:00 02/11/25 06:07 6 UNITS Dextrose 50 ml UD PRN IV 02/09/25 13:00 Heparin Sodium (Porcine) 5,000 units Q12HR IN 02/09/25 22:00 02/11/25 09:16 5,000 UNITS Insulin Glargine 20 units QAM IN 02/10/25 07:00 02/11/25 06:06 20 UNITS Laboratory Results Laboratory Tests 02/10/25 10:20 Chemistry Test 02/10/25 10:20 Albumin 3.3 g/dL (3.2-4.8) Calcium Level 8.0 mg/dL (8.7-10.4) L Magnesium Level 1.9 mg/dL (1.6-2.6) Total Protein 5.1 g/dL (5.7-8.2) L LFT Test 02/10/25 10:20 Alanine Aminotransferase (ALT) 57 U/L (7-40) H Alkaline Phosphatase 123 U/L (46-116) H Aspartate Amino Transferase (AST) 26 U/L (13-40) Total Bilirubin 0.4 mg/dL (0.2-1.0) Urinalysis Test 02/07/25 20:00 Urine Color Light-yellow (Yellow) Urine Clarity Clear (Clear) Urine pH 5.5 (5.0-9.0) Urine Specific [place] 1.008 (1.001-1.035) Urine Protein Negative (Negative) Urine Ketones Negative (Negative) Urine Blood Negative /uL (Negative) Urine Nitrite Negative (Negative) Urine Bilirubin Negative (Negative) Urine Urobilinogen Normal mg/dL (Negative) Urine Leukocyte Esterase Trace /uL (Negative) Urine RBC 1 /hpf (0 - 3) Urine Microscopic WBC /HPF (0-3) Urine Squamous Epithelial Cells None seen /hpf (<5) Urine Uric Acid Crystals Few /hpf (None Seen) Urine Amorphous Crystals Few /hpf (None Seen) Urine Bacteria None seen /hpf (None Seen) Urine Glucose Normal mg/dL (Normal) Assessment/Plan Assessment/Plan Coronary artery disease status post triple-vessel CABG on 01/16/25 Fluid collection in anterior mediastinum Acute on chronic HFpEF, NYHA class III Hypertension Dyslipidemia Acute left 1st and 2nd rib fracture (per chest CT) Pulmonary hypertension, moderate degree Insulin-dependent Type 2 diabetes mellitus History of CVA without residual deficit Obesity Plan/recommendations (Dr. Cabral): A transthoracic echocardiogram done on this admission reveals EF of 60% with mild LV diastolic dysfunction, RVSP 44 mmHg. The patient remained sinus rhythm with no PVCs noted upon reviewing nurse monitoring overnight. Continue to monitor on telemetry. Continue to monitor electrolytes and replete as needed. Advised to follow-up with the patient's Cardiology in outpatient setting. This medical document was created using an electronic medical record system with voice recognition software and computerized dictation system. Although this document has been carefully reviewed, there might still be some phonetic and typographical errors. Occasional wrong-word or ``sound-alike substitutions may have occurred due to the inherent limitations of voice recognition software. These areas are purely typographical due to imperfections of the software programs and do not reflect any compromise in the patient's medical care. Please read the chart carefully and recognize, using context, where these substitutions have occurred. Plan discussed with: Patient, Daughter Plan discussed with: Patient, Other (RN) My Orders Orders - MARTÍN ALEXANDER Procedure Category Date Status Time Comprehensive LAB 02/11/25 Logged Metabolic Panel 08:32 Magnesium LAB 02/11/25 Logged 08:32 Thyroid Stimulating LAB 02/11/25 Logged Hormone 08:33 Date of Service: Feb 11, 2025 Billing Provider: SISSY CABRAL MD Common Visit Codes: CONSULT ONLY Consultation Codes: [id number] CONSULT <45MIN MARTÍN ALEXANDER Feb 11, 2025 09:43
[2025-02-11 12:04] LABS: Albumin 3.5 g/dL (3.2-4.8); Anion Gap 7 (5-15); BUN/Creatinine Ratio 13.6 (10.0-20.0); Blood Urea Nitrogen 16 mg/dL (9-23); Carbon Dioxide 29 mmol/L (20-31); Chloride 99 mmol/L (98-107); Magnesium 2.0 mg/dL (1.6-2.6); Potassium 4.4 mmol/L (3.5-5.1)
[2025-02-11 12:05] LABS: Bilirubin, Total 0.4 mg/dL (0.2-1.0)
[2025-02-11 12:06] LABS: Alanine Aminotransferase 52 U/L (7-40); Alkaline Phosphatase 125 U/L (46-116); Glucose 188 mg/dL (74-106); Sodium 135 mmol/L (136-145)
[2025-02-11 12:07] LABS: Calcium 8.1 mg/dL (8.7-10.4); Total Protein 5.5 g/dL (5.7-8.2)
--- NOTE | 2025-02-11 17:19 | DVHPN2 ---
Subjective Patient denies any complaints, discharge plan suspected possibly on Thursday once mediastinal drain is out. So Reviewed: Care Plan Changes from previous H/P or p: No Changes Eyes: No Pain, No Vision change, No Conjunctivae inflammation, No Eyelid inflammation, No Other, No Redness ENT: No Ear pain, No Ear discharge, No Nose pain, No Nose discharge, No Nose congestion, No Mouth pain, No Mouth swelling, No Throat pain, No Throat swelling, No Other Cardiovascular: No Chest Pain, No Palpitations, No Orthopnea, No Paroxysmal Noc. Dyspnea; Edema; No Lt Headedness, No Other Respiratory: No Cough, No Dry, No Shortness of breath, No SOB with excertion, No Wheezing, No Hemoptysis, No Pleuritic Pain, No Sputum, No Other Gastrointestinal: No Nausea, No Vomiting, No Abdominal Pain, No Diarrhea, No Constipation, No Melena, No Hematochezia, No Other Genitourinary: No Dysuria, No Frequency, No Incontinence, No Hematuria, No Retention; Other (Scrotum/penis swelling, Nogueira catheter in place.) Musculoskeletal: other (Lower extremity swelling); No neck pain, No shoulder pain, No arm pain, No back pain, No hand pain, No leg pain, No foot pain Skin: No Rash, No Lesions, No Jaundice, No Bruising; Other (Skin graft bilateral lower extremity) Objective Vitals Vital Signs Date Time Temp Pulse Resp B/P (MAP) Pulse Ox O2 Delivery O2 Flow Rate FiO2 02/11/25 17:03 154/67 02/11/25 16:56 98.7 72 18 90 98.7 02/11/25 08:00 Nasal Cannula* 3 32 Intake/Output Intake and Output 02/11/25 07:00 Intake Total 816.64 ml Output Total 3850 ml Balance -3033.36 ml Intake Oral 450 ml IV Total 366.64 ml Output Urine Total 3850 ml Exam HEENT pupils are reactive Neck is supple CV is S1-S2 regular rate and rhythm Respiratory diminished breath sounds bases GI positive bowel sound 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 Medications Current Medications Medications Dose Ordered Sig/Ankur Route Start Time Stop Time Status Last Admin Dose Admin Aspirin 81 mg DAILY PO 02/08/25 10:00 02/11/25 08:52 81 MG Atorvastatin Calcium 20 mg HS PO 02/07/25 22:00 02/10/25 22:00 20 MG Metoprolol Tartrate 25 mg BID PO 02/07/25 22:00 02/11/25 08:51 25 MG Amlodipine Besylate 10 mg DAILY PO 02/08/25 10:00 02/11/25 08:52 10 MG Azithromycin 250 ml @ 125 mls/hr DAILY IV 02/08/25 10:00 02/11/25 08:52 125 MLS/HR Sodium Chloride 10 ml Q8HR IV 02/07/25 22:00 02/11/25 14:08 10 ML Acetaminophen/ Hydrocodone Bitart 1 tab Q4HP PRN PO 02/07/25 15:30 02/11/25 06:09 1 TAB Ondansetron HCl 4 mg Q4HP PRN IV 02/07/25 15:30 02/07/25 21:03 4 MG Docusate Sodium 100 mg BIDPRN PRN PO 02/07/25 15:30 Acetaminophen 650 mg Q6HP PRN PO 02/07/25 15:30 Nitroglycerin 0.4 mg Q5MINP PRN SL 02/07/25 17:00 Morphine Sulfate 2 mg Q30M PRN IV 02/07/25 17:00 02/07/25 21:04 2 MG Ceftriaxone Sodium 50 ml @ 100 mls/hr DAILY@09 IV 02/08/25 09:00 02/11/25 08:52 100 MLS/HR Furosemide 40 mg BIDD IV 02/08/25 18:00 02/11/25 17:03 40 MG Diagnostic Test (Pha) 1 strip ACHS 02/09/25 17:00 02/11/25 17:01 1 STRIP Insulin Human Regular HS SC 02/09/25 22:00 02/10/25 22:00 4 UNITS Insulin Human Regular AC SC 02/09/25 17:00 02/11/25 17:03 9 UNITS Dextrose 50 ml UD PRN IV 02/09/25 13:00 Heparin Sodium (Porcine) 5,000 units Q12HR SC 02/09/25 22:00 02/11/25 09:16 5,000 UNITS Insulin Glargine 20 units QAM SC 02/10/25 07:00 02/11/25 06:06 20 UNITS Laboratory Results Laboratory Tests 02/10/25 10:20 02/11/25 11:27 Chemistry Test 02/11/25 11:27 Albumin 3.5 g/dL (3.2-4.8) Calcium Level 8.1 mg/dL (8.7-10.4) L Magnesium Level 2.0 mg/dL (1.6-2.6) Total Protein 5.5 g/dL (5.7-8.2) L LFT Test 02/11/25 11:27 Alanine Aminotransferase (ALT) 52 U/L (7-40) H Alkaline Phosphatase 125 U/L (46-116) H Aspartate Amino Transferase (AST) 26 U/L (13-40) Total Bilirubin 0.4 mg/dL (0.2-1.0) HgA1c, TSH Test 02/11/25 11:27 Thyroid Stimulating Hormone (TSH) 2.06 uIU/mL (0.55-4.78) Urinalysis Test 02/07/25 20:00 Urine Color Light-yellow (Yellow) Urine Clarity Clear (Clear) Urine pH 5.5 (5.0-9.0) Urine Specific [place] 1.008 (1.001-1.035) Urine Protein Negative (Negative) Urine Ketones Negative (Negative) Urine Blood Negative /uL (Negative) Urine Nitrite Negative (Negative) Urine Bilirubin Negative (Negative) Urine Urobilinogen Normal mg/dL (Negative) Urine Leukocyte Esterase Trace /uL (Negative) Urine RBC 1 /hpf (0 - 3) Urine Microscopic WBC /HPF (0-3) Urine Squamous Epithelial Cells None seen /hpf (<5) Urine Uric Acid Crystals Few /hpf (None Seen) Urine Amorphous Crystals Few /hpf (None Seen) Urine Bacteria None seen /hpf (None Seen) Urine Glucose Normal mg/dL (Normal) Microbiology Microbiology Date/Time Source Procedure Growth Status 02/10/25 15:26 Aspirate Gram Stain - Final Resulted 02/10/25 15:26 Aspirate Body Fluid Culture - Preliminary Resulted Assessment/Plan Assessment/Plan 70-year-old male with a known history of insulin-dependent diabetes mellitus type 2, hypertension, dyslipidemia, CAD status post CABG recently two weeks ago presented to the hospital with the increasing weakness generalized fatigue and fever found to have 1. Generalized weakness 2. Acute CHF exacerbation likely systolic dysfunction 3. CAD status post CABG 4. Organized fluid collection in the anterior mediastinum with a recent CABG status post IR drainage with a catheter placement in-situ 5. Left-sided consolidation 6. MENDEL 7. Uncontrolled hyperglycemia in the setting of insulin-dependent diabetes mellitus type 2 -IV diuretics, insulin sliding scale, 2D echo cardiology consultation appreciated. -status post IR procedure, so far body fluid culture shows no evidence of any growth. -physical therapy evaluation and treatment. Plan discussed with: Patient, Spouse Date of Service: Feb 11, 2025 Billing Provider: SUSANA MCNEILL MD Common Visit Codes: [id number] INP/OBS CARE(MOD) SUSANA MCNEILL MD Feb 11, 2025 17:19
--- NOTE | 2025-02-11 23:11 | DVHPN2 ---
Consult Progress Note Subjective Other Systems: Patient was seen and evaluated in follow up. No overnight cardiac events reported. Patient remains in sinus rhythm. Patient denies any chest pain. Telemetry reviewed. Objective vital signs Vital Sign Date Time Temp Pulse Resp B/P (MAP) Pulse Ox O2 Delivery O2 Flow Rate FiO2 02/11/25 12:41 98.6 66 18 147/69 (95) 90 98.6 02/11/25 08:00 Nasal Cannula* 3 32 Total Intake and Output 02/10/25 02/10/25 02/11/25 15:00 23:00 07:00 Intake Total 300 ml 266.64 ml 250 ml Output Total 2100 ml 1750 ml Balance 300 ml -1833.36 ml -1500 ml medications Current Medications Medications Dose Ordered Sig/Ankur Route Start Time Stop Time Status Last Admin Dose Admin Aspirin 81 mg DAILY PO 02/08/25 10:00 02/11/25 08:52 81 MG Atorvastatin Calcium 20 mg HS PO 02/07/25 22:00 02/10/25 22:00 20 MG Metoprolol Tartrate 25 mg BID PO 02/07/25 22:00 02/11/25 08:51 25 MG Amlodipine Besylate 10 mg DAILY PO 02/08/25 10:00 02/11/25 08:52 10 MG Azithromycin 250 ml @ 125 mls/hr DAILY IV 02/08/25 10:00 02/11/25 08:52 125 MLS/HR Sodium Chloride 10 ml Q8HR IV 02/07/25 22:00 02/11/25 05:08 10 ML Acetaminophen/ Hydrocodone Bitart 1 tab Q4HP PRN PO 02/07/25 15:30 02/11/25 06:09 1 TAB Ondansetron HCl 4 mg Q4HP PRN IV 02/07/25 15:30 02/07/25 21:03 4 MG Docusate Sodium 100 mg BIDPRN PRN PO 02/07/25 15:30 Acetaminophen 650 mg Q6HP PRN PO 02/07/25 15:30 Nitroglycerin 0.4 mg Q5MINP PRN SL 02/07/25 17:00 Morphine Sulfate 2 mg Q30M PRN IV 02/07/25 17:00 02/07/25 21:04 2 MG Ceftriaxone Sodium 50 ml @ 100 mls/hr DAILY@09 IV 02/08/25 09:00 02/11/25 08:52 100 MLS/HR Furosemide 40 mg BIDD IV 02/08/25 18:00 02/11/25 05:07 40 MG Diagnostic Test (Pha) 1 strip ACHS 02/09/25 17:00 02/11/25 06:05 1 STRIP Insulin Human Regular HS SC 02/09/25 22:00 02/10/25 22:00 4 UNITS Insulin Human Regular AC SC 02/09/25 17:00 02/11/25 06:07 6 UNITS Dextrose 50 ml UD PRN IV 02/09/25 13:00 Heparin Sodium (Porcine) 5,000 units Q12HR SC 02/09/25 22:00 02/11/25 09:16 5,000 UNITS Insulin Glargine 20 units QAM SC 02/10/25 07:00 02/11/25 06:06 20 UNITS Examination: GENERAL:Normal, HEENT:Normal, NECK:Normal, LUNGS:Normal, CVS:Normal, ABDOMEN:Normal, SKIN:Normal, NEURO:Normal laboratory and microbiology Laboratory Tests 02/11/25 11:27 02/10/25 10:20 Test 02/11/25 11:27 Range/Units Serum Glucose 188 H 74-106 mg/dL Problem List/Assessment/Plan Problem List/Assessment/Plan Problem List Coronary artery disease status post triple-vessel CABG on 01/16/25. Fluid collection in anterior mediastinum. Acute on chronic HFpEF, NYHA class III. Hypertension . Dyslipidemia . Acute left 1st and 2nd rib fracture (per chest CT). Pulmonary hypertension, moderate degree. Insulin-dependent Type 2 diabetes mellitus . History of CVA without residual deficit . Obesity. Assessment/Plan Continued all current supportive medical care. Patient has been seen by Monique Layton NP on my behalf, her and I discussed the plan with the patient. A transthoracic echocardiogram done on this admission reveals EF of 60% with mild LV diastolic dysfunction, RVSP 44 mmHg. The patient remained sinus rhythm with no PVCs noted upon reviewing ekg monitor overnight. Continue to monitor on telemetry. Continue to monitor electrolytes and replete as needed. Advised to follow-up with the patient's [employer] in outpatient setting. Additional plan as per the hospital course. Plan discussed with: Patient Dietary Evaluation Review Comments: Nutrition Recommendation 1) Gordon 1 pk BID 2) Consider CCHO 60gm + cardiac diet 3) Monitor PO intake, lab values, weight trend, and I/O Expected Outcomes/Goals: Wound to improve Lab values to improve Fu 2-3 days Date of Service: Feb 11, 2025 Billing Provider: SISSY CABRAL MD Cardiology Common Codes: [id number] HOSP CARE(High Cardiology Consultation Codes: [id number] CONSULT <45MIN SISSY CABRAL MD Feb 11, 2025 13:14
[2025-02-12] VITALS (9 sets, daily range): BP systolic 122–156; BP diastolic 49–73; PULSE 54–78; RESP 15–20; TEMP 97.9–98.5; O2SAT 90–96
[2025-02-12 14:35] LABS: Albumin 3.6 g/dL (3.2-4.8); Anion Gap 7 (5-15); BUN/Creatinine Ratio 10.3 (10.0-20.0); Bilirubin, Total 0.6 mg/dL (0.2-1.0); Blood Urea Nitrogen 12 mg/dL (9-23); Carbon Dioxide 29 mmol/L (20-31); Magnesium 2.0 mg/dL (1.6-2.6); Potassium 4.1 mmol/L (3.5-5.1); Total Protein 5.8 g/dL (5.7-8.2)
[2025-02-12 14:38] LABS: Alanine Aminotransferase 51 U/L (7-40); Alkaline Phosphatase 125 U/L (46-116); Calcium 8.4 mg/dL (8.7-10.4); Chloride 97 mmol/L (98-107); Glucose 214 mg/dL (74-106); Sodium 133 mmol/L (136-145)
--- NOTE | 2025-02-12 16:39 | DVHPN2 ---
Subjective Patient denies any chest pain/palpitation , as per bedside RN patient's has a occasional PVCs, patient is asymptomatic. Reviewed: Care Plan Changes from previous H/P or p: No Changes Eyes: No Pain, No Vision change, No Conjunctivae inflammation, No Eyelid inflammation, No Other, No Redness ENT: No Ear pain, No Ear discharge, No Nose pain, No Nose discharge, No Nose congestion, No Mouth pain, No Mouth swelling, No Throat pain, No Throat swelling, No Other Cardiovascular: No Chest Pain, No Palpitations, No Orthopnea, No Paroxysmal Noc. Dyspnea; Edema; No Lt Headedness, No Other Respiratory: No Cough, No Dry, No Shortness of breath, No SOB with excertion, No Wheezing, No Hemoptysis, No Pleuritic Pain, No Sputum, No Other Gastrointestinal: No Nausea, No Vomiting, No Abdominal Pain, No Diarrhea, No Constipation, No Melena, No Hematochezia, No Other Genitourinary: No Dysuria, No Frequency, No Incontinence, No Hematuria, No Retention; Other (Scrotum/penis swelling, Nogueira catheter in place.) Musculoskeletal: other (Lower extremity swelling); No neck pain, No shoulder pain, No arm pain, No back pain, No hand pain, No leg pain, No foot pain Skin: No Rash, No Lesions, No Jaundice, No Bruising; Other (Skin graft bilateral lower extremity) Objective Vitals Vital Signs Date Time Temp Pulse Resp B/P (MAP) Pulse Ox O2 Delivery O2 Flow Rate FiO2 02/12/25 13:12 98.0 67 20 130/49 (76) 92 98.0 02/12/25 08:00 Nasal Cannula* 2 28 Intake/Output Intake and Output 02/12/25 07:00 Intake Total 945 ml Output Total 4850 ml Balance -3905 ml Intake Oral 645 ml IV Total 300 ml Output Urine Total 4850 ml # Bowel Movements 1 Exam HEENT pupils are reactive Neck is supple CV is S1-S2 regular rate and rhythm Respiratory diminished breath sounds bases GI positive bowel sound 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 Medications Current Medications Medications Dose Ordered Sig/Ankur Route Start Time Stop Time Status Last Admin Dose Admin Aspirin 81 mg DAILY PO 02/08/25 10:00 02/12/25 10:26 81 MG Atorvastatin Calcium 20 mg HS PO 02/07/25 22:00 02/11/25 21:16 20 MG Metoprolol Tartrate 25 mg BID PO 02/07/25 22:00 02/12/25 10:25 25 MG Amlodipine Besylate 10 mg DAILY PO 02/08/25 10:00 02/12/25 10:26 10 MG Azithromycin 250 ml @ 125 mls/hr DAILY IV 02/08/25 10:00 02/12/25 10:24 125 MLS/HR Sodium Chloride 10 ml Q8HR IV 02/07/25 22:00 02/12/25 14:08 10 ML Acetaminophen/ Hydrocodone Bitart 1 tab Q4HP PRN PO 02/07/25 15:30 02/12/25 05:21 1 TAB Ondansetron HCl 4 mg Q4HP PRN IV 02/07/25 15:30 02/07/25 21:03 4 MG Docusate Sodium 100 mg BIDPRN PRN PO 02/07/25 15:30 Acetaminophen 650 mg Q6HP PRN PO 02/07/25 15:30 Nitroglycerin 0.4 mg Q5MINP PRN SL 02/07/25 17:00 Morphine Sulfate 2 mg Q30M PRN IV 02/07/25 17:00 02/07/25 21:04 2 MG Ceftriaxone Sodium 50 ml @ 100 mls/hr DAILY@09 IV 02/08/25 09:00 02/12/25 10:24 100 MLS/HR Furosemide 40 mg BIDD IV 02/08/25 18:00 02/12/25 05:20 40 MG Diagnostic Test (Pha) 1 strip ACHS 02/09/25 17:00 02/12/25 11:31 1 STRIP Insulin Human Regular HS SC 02/09/25 22:00 02/10/25 22:00 4 UNITS Insulin Human Regular AC SC 02/09/25 17:00 02/12/25 06:20 2 UNITS Dextrose 50 ml UD PRN IV 02/09/25 13:00 Heparin Sodium (Porcine) 5,000 units Q12HR SC 02/09/25 22:00 02/12/25 10:37 5,000 UNITS Insulin Glargine 20 units QAM SC 02/10/25 07:00 02/12/25 06:18 20 UNITS Laboratory Results Laboratory Tests 02/10/25 10:20 02/12/25 13:47 Chemistry Test 02/12/25 13:47 Albumin 3.6 g/dL (3.2-4.8) Calcium Level 8.4 mg/dL (8.7-10.4) L Magnesium Level 2.0 mg/dL (1.6-2.6) Total Protein 5.8 g/dL (5.7-8.2) LFT Test 02/12/25 13:47 Alanine Aminotransferase (ALT) 51 U/L (7-40) H Alkaline Phosphatase 125 U/L (46-116) H Aspartate Amino Transferase (AST) 34 U/L (13-40) Total Bilirubin 0.6 mg/dL (0.2-1.0) Urinalysis Test 02/07/25 20:00 Urine Color Light-yellow (Yellow) Urine Clarity Clear (Clear) Urine pH 5.5 (5.0-9.0) Urine Specific [place] 1.008 (1.001-1.035) Urine Protein Negative (Negative) Urine Ketones Negative (Negative) Urine Blood Negative /uL (Negative) Urine Nitrite Negative (Negative) Urine Bilirubin Negative (Negative) Urine Urobilinogen Normal mg/dL (Negative) Urine Leukocyte Esterase Trace /uL (Negative) Urine RBC 1 /hpf (0 - 3) Urine Microscopic WBC /HPF (0-3) Urine Squamous Epithelial Cells None seen /hpf (<5) Urine Uric Acid Crystals Few /hpf (None Seen) Urine Amorphous Crystals Few /hpf (None Seen) Urine Bacteria None seen /hpf (None Seen) Urine Glucose Normal mg/dL (Normal) Microbiology Microbiology Date/Time Source Procedure Growth Status 02/10/25 15:26 Aspirate Gram Stain - Final Resulted 02/10/25 15:26 Aspirate Body Fluid Culture - Preliminary Resulted Assessment/Plan Assessment/Plan 70-year-old male with a known history of insulin-dependent diabetes mellitus type 2, hypertension, dyslipidemia, CAD status post CABG recently two weeks ago presented to the hospital with the increasing weakness generalized fatigue and fever found to have 1. Cardiac arrhythmias with the occasional PVCs, check elective 2. Acute CHF exacerbation likely systolic dysfunction, currently compensated 3. CAD status post CABG 4. Organized fluid collection in the anterior mediastinum with a recent CABG status post IR drainage with a catheter placement in-situ 5. Left-sided consolidation 6. MENDEL 7. Uncontrolled hyperglycemia in the setting of insulin-dependent diabetes mellitus type 2, improved -IV diuretics, insulin sliding scale, 2D echo cardiology consultation appreciated. -status post IR procedure, so far body fluid culture shows no evidence of any growth. -physical therapy evaluation and treatment. -discharge plan once mediastinal drain is out. Plan discussed with: Patient, Other (Plan of care discussed with the patient's bedside RN who interpreted the [place] for me for patient's update.) Date of Service: Feb 12, 2025 Billing Provider: SUSANA MCNEILL MD Common Visit Codes: [id number] INP/OBS CARE(MOD) SUSANA MCNEILL MD Feb 12, 2025 16:39
[2025-02-12] MEDS: PIPERACILLIN-TAZOB 3.375GM 100 ML IV ONE (17:11)
[2025-02-12] MEDS: PIPERACILLIN-TAZOB 3.375GM 100 ML IV SCH (22:29)
--- NOTE | 2025-02-12 23:33 | DVHPN2 ---
Progress Note - Dictate Date Seen: Feb 12, 2025 Medical Necessity Reason Pt with a Central, PICC or Fol: No Subjective Patient was seen and evaluated in follow up. Patient had runs of PVCs in the 30s-60's and runs of A fib in the 140's this am. Patient is asymptomatic. GLUC 270, ALT 51. TSH is WNL. Telemetry reviewed. vital signs Vital Sign Date Time Temp Pulse Resp B/P (MAP) Pulse Ox O2 Delivery O2 Flow Rate FiO2 02/12/25 17:19 144/60 02/12/25 16:59 98.1 69 18 90 98.1 02/12/25 08:00 Nasal Cannula* 2 28 Total Intake and Output 02/11/25 02/11/25 02/12/25 15:00 23:00 07:00 Intake Total 300 ml 300 ml 345 ml Output Total 2200 ml 2650 ml Balance 300 ml -1900 ml -2305 ml medications Current Medications Medications Dose Ordered Sig/Ankur Route Start Time Stop Time Status Last Admin Dose Admin Aspirin 81 mg DAILY PO 02/08/25 10:00 02/12/25 10:26 81 MG Atorvastatin Calcium 20 mg HS PO 02/07/25 22:00 02/11/25 21:16 20 MG Metoprolol Tartrate 25 mg BID PO 02/07/25 22:00 02/12/25 10:25 25 MG Amlodipine Besylate 10 mg DAILY PO 02/08/25 10:00 02/12/25 10:26 10 MG Sodium Chloride 10 ml Q8HR IV 02/07/25 22:00 02/12/25 14:08 10 ML Acetaminophen/ Hydrocodone Bitart 1 tab Q4HP PRN PO 02/07/25 15:30 02/12/25 17:21 1 TAB Ondansetron HCl 4 mg Q4HP PRN IV 02/07/25 15:30 02/07/25 21:03 4 MG Docusate Sodium 100 mg BIDPRN PRN PO 02/07/25 15:30 Acetaminophen 650 mg Q6HP PRN PO 02/07/25 15:30 Nitroglycerin 0.4 mg Q5MINP PRN SL 02/07/25 17:00 Morphine Sulfate 2 mg Q30M PRN IV 02/07/25 17:00 02/07/25 21:04 2 MG Furosemide 40 mg BIDD IV 02/08/25 18:00 02/12/25 17:19 40 MG Diagnostic Test (Pha) 1 strip ACHS 02/09/25 17:00 02/12/25 17:08 1 STRIP Insulin Human Regular HS SC 02/09/25 22:00 02/10/25 22:00 4 UNITS Insulin Human Regular AC SC 02/09/25 17:00 02/12/25 17:10 6 UNITS Dextrose 50 ml UD PRN IV 02/09/25 13:00 Heparin Sodium (Porcine) 5,000 units Q12HR SC 02/09/25 22:00 02/12/25 10:37 5,000 UNITS Insulin Glargine 20 units QAM SC 02/10/25 07:00 02/12/25 06:18 20 UNITS Piperacillin Sod/ Tazobactam Sod 100 ml @ 25 mls/hr Q8HR IV 02/12/25 22:00 objective GENERAL: Alert and oriented x 3. No acute distress. EYES: PERRL, EOMI. Anicteric. HENT: Moist mucous membranes. LUNGS: Clear to auscultation bilaterally. CARDIOVASCULAR: Regular rate and rhythm. ABDOMEN: Soft, non-tender and non-distended. EXTREMITIES: No edema. NEUROLOGIC: No focal neurological deficits. SKIN: Multiple opened wounds to bilateral lower extremities. Healing vertical scar to midline chest. Pigtail drain to upper anterior chest. laboratory and microbiology Laboratory Tests 02/12/25 13:47 02/10/25 10:20 Test 02/12/25 13:47 Range/Units Serum Glucose 214 H 74-106 mg/dL Problem List Problem List Coronary artery disease status post triple-vessel CABG on 01/16/25. Fluid collection in anterior mediastinum. Acute on chronic HFpEF, NYHA class III. Hypertension . Dyslipidemia . Acute left 1st and 2nd rib fracture (per chest CT). Pulmonary hypertension, moderate degree. Insulin-dependent Type 2 diabetes mellitus . History of CVA without residual deficit . Obesity. Assessment/Plan Continued all current supportive medical care. Patient has been seen by Monique Layton NP on my behalf, her and I discussed the plan with the patient. A transthoracic echocardiogram done on this admission reveals EF of 60% with mild LV diastolic dysfunction, RVSP 44 mmHg. The patient remained sinus rhythm with no PVCs noted upon reviewing sample prep technician overnight. Continue to monitor on telemetry. Continue to monitor electrolytes and replete as needed. 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 Additional plan as per the hospital course. Assessment/Plan Continued all current supportive medical care. IV antibiotics as ordered. Diuretics with Lasix. Amlodipine. Aspirin, Metoprolol. Morphine and [place] for pain management. Additional plan as per the hospital course. Dietary Evaluation Review Comments: Nutrition Recommendation 1) Gordon 1 pk BID 2) Consider CCHO 60gm + cardiac diet 3) Monitor PO intake, lab values, weight trend, and I/O Expected Outcomes/Goals: Wound to improve Lab values to improve Fu 2-3 days Plan discussed with: Patient SISSY CABRAL MD Feb 12, 2025 19:55
[2025-02-13] VITALS (9 sets, daily range): BP systolic 120–161; BP diastolic 56–88; PULSE 50–101; RESP 15–18; TEMP 97.9–99; O2SAT 91–96
[2025-02-13] MEDS: DOCUSATE SOD 100 MG CAP PO PRN (03:59)
[2025-02-13 10:54] LABS: Hematocrit 34.1 % (41.0-53.0); Hemoglobin 11.5 g/dL (13.5-17.5); Mean Corpuscular Hemoglobin 29.4 pg (28.0-32.0); Mean Corpuscular Volume 87.5 fL (80.0-100.0); Nucleated Red Blood Cells % 0.0 %
[2025-02-13 11:04] LABS: Anion Gap 8 (5-15); Potassium 3.9 mmol/L (3.5-5.1)
[2025-02-13 11:10] LABS: BUN/Creatinine Ratio 13.1 (10.0-20.0); Blood Urea Nitrogen 17 mg/dL (9-23); Magnesium 1.8 mg/dL (1.6-2.6)
[2025-02-13 11:17] LABS: Calcium 8.7 mg/dL (8.7-10.4); Carbon Dioxide 33 mmol/L (20-31); Chloride 94 mmol/L (98-107); Glucose 283 mg/dL (74-106); Sodium 135 mmol/L (136-145)
--- NOTE | 2025-02-13 16:19 | DVH ---
Procedure: CT CHEST WITHOUT CONTRAST Reason for study/Clinical History: Recheck size of abscess near mediastinal area Comparison Study: CT CHEST WITHOUT CONTRAST on DOS: 02/10/25, CT CHEST WITHOUT CONTRAST on DOS: 5, XY CHEST PORTABLE on DOS: 02/07/25, XY CHEST XRAY 1 VIEW on DOS: 02/01/24, CT CHEST WITHOUT CONTRAST on DOS: 01/29/24 Exam Date: 02/13/2025 03:33 PM TECHNIQUE: Multidetector CT of the chest was performed from the lung apices to the upper abdomen with out the use of intravenous contract. Axial, coronal and sagittal multiplanar reformats were performed . Radiation Dose Information: CT Dose: CTDI volume is 26 mGy. Dose-length product is 865 mGy*cm The dose indicators for CT are the volume Computed Tomography (CT) Dose Index (CTDIvol) and the Dose Length Product (DLP), and are measured in units of mGy and mGy-cm, respectively. These indicators are not patient dose, but values generated from the CT scanner acquisition factors. The report includes radiation exposure data for exposures received during this examination. FINDINGS: There is an extremely large left pleural effusion. There is almost complete opacification of the left emily thorax. Severe compressive atelectasis left lung. Drainage catheter is seen anteriorly which en ds in a small fluid collection of the anterior mediastinum, diminished when compared to the prior CT of 02/07/2025 Right lung free of infiltrate. No central airway lesions. Vascular calcification of the aorta and cor onary arteries. Mild cardiomegaly. Impression Extremely large left pleural effusion with marked compressive left lung atelectasis. Drainage cathete r interest the chest anteriorly to the left of midline but does not appear to be within the location of the pleural fluid. The previously noted mediastinal fluid collection/ abscess has moderately dimin ished in size when compared to 02/07/2025 Radiation optimization: All CT scans at this facility use at least one of these dose optimization thom hniques: automated exposure control mA and/or kV adjustment per patient size (includes targeted exam s where dose is matched to clinical indication) or iterative reconstruction.
--- NOTE | 2025-02-13 16:22 | DVHPN2 ---
Subjective Patient denies any chest pain/palpitation , as per bedside RN patient's has a occasional PVCs, patient is asymptomatic. Reviewed: Care Plan Changes from previous H/P or p: Changes (Patient underwent CT of the chest which shows large left-sided pleural effusion.) Eyes: No Pain, No Vision change, No Conjunctivae inflammation, No Eyelid inflammation, No Other, No Redness ENT: No Ear pain, No Ear discharge, No Nose pain, No Nose discharge, No Nose congestion, No Mouth pain, No Mouth swelling, No Throat pain, No Throat swelling, No Other Cardiovascular: No Chest Pain, No Palpitations, No Orthopnea, No Paroxysmal Noc. Dyspnea; Edema; No Lt Headedness, No Other Respiratory: No Cough, No Dry, No Shortness of breath, No SOB with excertion, No Wheezing, No Hemoptysis, No Pleuritic Pain, No Sputum, No Other Gastrointestinal: No Nausea, No Vomiting, No Abdominal Pain, No Diarrhea, No Constipation, No Melena, No Hematochezia, No Other Genitourinary: No Dysuria, No Frequency, No Incontinence, No Hematuria, No Retention; Other (Scrotum/penis swelling, Nogueira catheter in place.) Musculoskeletal: other (Lower extremity swelling); No neck pain, No shoulder pain, No arm pain, No back pain, No hand pain, No leg pain, No foot pain Skin: No Rash, No Lesions, No Jaundice, No Bruising; Other (Skin graft bilateral lower extremity) Objective Vitals Vital Signs Date Time Temp Pulse Resp B/P (MAP) Pulse Ox O2 Delivery O2 Flow Rate FiO2 02/13/25 13:00 97.9 81 18 161/76 (104) 96 97.9 02/13/25 08:00 Nasal Cannula* 2 28 Intake/Output Intake and Output 02/13/25 07:00 Intake Total 1180 ml Output Total 3750 ml Balance -2570 ml Intake Oral 980 ml IV Total 200 ml Output Urine Total 3750 ml Exam HEENT pupils are reactive Neck is supple CV is S1-S2 regular rate and rhythm Respiratory diminished breath sounds left lung. 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 Medications Current Medications Medications Dose Ordered Sig/Ankur Route Start Time Stop Time Status Last Admin Dose Admin Aspirin 81 mg DAILY PO 02/08/25 10:00 02/13/25 10:00 81 MG Atorvastatin Calcium 20 mg HS PO 02/07/25 22:00 02/12/25 22:27 20 MG Metoprolol Tartrate 25 mg BID PO 02/07/25 22:00 02/13/25 08:52 25 MG Amlodipine Besylate 10 mg DAILY PO 02/08/25 10:00 02/13/25 08:53 10 MG Sodium Chloride 10 ml Q8HR IV 02/07/25 22:00 02/13/25 14:00 10 ML Acetaminophen/ Hydrocodone Bitart 1 tab Q4HP PRN PO 02/07/25 15:30 02/13/25 03:59 1 TAB Ondansetron HCl 4 mg Q4HP PRN IV 02/07/25 15:30 02/07/25 21:03 4 MG Docusate Sodium 100 mg BIDPRN PRN PO 02/07/25 15:30 02/13/25 03:59 100 MG Acetaminophen 650 mg Q6HP PRN PO 02/07/25 15:30 Nitroglycerin 0.4 mg Q5MINP PRN SL 02/07/25 17:00 Morphine Sulfate 2 mg Q30M PRN IV 02/07/25 17:00 02/07/25 21:04 2 MG Furosemide 40 mg BIDD IV 02/08/25 18:00 02/13/25 07:03 40 MG Diagnostic Test (Pha) 1 strip ACHS 02/09/25 17:00 02/13/25 11:30 1 STRIP Insulin Human Regular HS SC 02/09/25 22:00 02/12/25 22:26 4 UNITS Insulin Human Regular AC SC 02/09/25 17:00 02/13/25 11:30 9 UNITS Dextrose 50 ml UD PRN IV 02/09/25 13:00 Heparin Sodium (Porcine) 5,000 units Q12HR SC 02/09/25 22:00 02/13/25 09:09 5,000 UNITS Insulin Glargine 20 units QAM SC 02/10/25 07:00 02/13/25 07:00 20 UNITS Piperacillin Sod/ Tazobactam Sod 100 ml @ 25 mls/hr Q8HR IV 02/12/25 22:00 02/13/25 14:33 25 MLS/HR Laboratory Results Laboratory Tests 02/13/25 10:27 Chemistry Test 02/13/25 10:27 Calcium Level 8.7 mg/dL (8.7-10.4) Magnesium Level 1.8 mg/dL (1.6-2.6) Phosphorus Level 3.1 mg/dL (2.4-5.1) Urinalysis Test 02/07/25 20:00 Urine Color Light-yellow (Yellow) Urine Clarity Clear (Clear) Urine pH 5.5 (5.0-9.0) Urine Specific [place] 1.008 (1.001-1.035) Urine Protein Negative (Negative) Urine Ketones Negative (Negative) Urine Blood Negative /uL (Negative) Urine Nitrite Negative (Negative) Urine Bilirubin Negative (Negative) Urine Urobilinogen Normal mg/dL (Negative) Urine Leukocyte Esterase Trace /uL (Negative) Urine RBC 1 /hpf (0 - 3) Urine Microscopic WBC /HPF (0-3) Urine Squamous Epithelial Cells None seen /hpf (<5) Urine Uric Acid Crystals Few /hpf (None Seen) Urine Amorphous Crystals Few /hpf (None Seen) Urine Bacteria None seen /hpf (None Seen) Urine Glucose Normal mg/dL (Normal) Microbiology Microbiology Date/Time Source Procedure Growth Status 02/10/25 15:26 Aspirate Gram Stain - Final Resulted 02/10/25 15:26 Aspirate Body Fluid Culture - Preliminary Resulted Assessment/Plan Assessment/Plan 70-year-old male with a known history of insulin-dependent diabetes mellitus type 2, hypertension, dyslipidemia, CAD status post CABG recently two weeks ago presented to the hospital with the increasing weakness generalized fatigue and fever found to have 1. Cardiac arrhythmias with the occasional PVCs, 2. Acute CHF exacerbation likely systolic dysfunction, currently compensated 3. CAD status post CABG 4. Organized fluid collection in the anterior mediastinum with a recent CABG status post IR drainage with a catheter placement in-situ, patient's accidentally pulled the drainage catheter 5. Left-sided consolidation with the largest left-sided pleural effusion status post left thoracentesis. 500 mL was removed 6. MENDEL suspected secondary to vasomotor nephropathy 7. Uncontrolled hyperglycemia in the setting of insulin-dependent diabetes mellitus type 2, improved -IR consult/pulmonary consult for thoracentesis -IV diuretics, insulin sliding scale, cardiology consultation appreciated. -status post IR procedure, so far body fluid culture shows no evidence of any growth. -physical therapy evaluation and treatment. Plan discussed with: Patient My Orders Orders - SUSANA MCNEILL MD Procedure Category Date Status Time Piperacillin-Tazob PHA 02/12/25 In Process 3.375gm (Zosyn 3.375g 22:00 Pt Request For Service PT 02/13/25 Logged 07:[address] 02/13/25 Resulted 15:02 * Infectious [place]- CONS 02/13/25 Transmitted Jaden Garrett 15:53 Date of Service: Feb 13, 2025 Billing Provider: SUSANA MCNEILL MD Common Visit Codes: [id number] INP/OBS CARE(MOD) SUSANA MCNEILL MD Feb 13, 2025 16:22
--- NOTE | 2025-02-13 18:29 | DVHINCON2 ---
Date of service: Feb 13, [address] reina Reason for Consultation acute respiratory failure History of Present Illness History Source: Patient Exam Limitations: No limitations HPI patient is a 70-year old gentleman with a history of CABG 2 weeks ago, diabetes, hypertension who presented with shortness of breath. Was seen in the emergency room where chest x-ray demonstrated large left pleural effusions and pulmonology was consulted to assist in management. Home Meds Reported Medications Metformin Hydrochloride (Metformin Hcl) 1,000 Mg Tab, 1 TAB PO BIDWM for DIABETES TAKE WITH MORNING AND EVENING MEALS 01/09/25 Insulin Glargine (Lantus Solostar) 100 Unit/Ml Inj, 30 UNIT SC QPM for DIABETES 01/09/25 Gabapentin (Gabapentin) 100 Mg Cap, 1 CAP PO HS for NEUROPATHY 01/09/25 Ferrous Sulfate Dried (Iron High Potency) 65 Mg Tab, 1 TAB PO BID for SUPPLEMENT 01/09/25 Cholecalciferol (Vitamin D3) 1,000 Unit Cap, 1 CAP PO DAILY for SUPPLEMENT 01/09/25 Amlodipine Besylate (Amlodipine Besylate) 10 Mg Tab, 1 TAB PO QAM for HYPERTENSION 01/09/25 Aspirin (Aspirin Low Dose) 81 Mg Chw, 1 TAB PO DAILY for HEART ATTACK PREVENTION 10/15/23 Insulin Glargine (Lantus Solostar) 100 Unit/Ml Inj, 20 UNIT SC QAM for DIABETES 10/15/23 Atorvastatin Calcium (Lipitor) 40 Mg Tab, 1 TAB PO HS for HIGH CHOLESTEROL 10/15/23 Losartan Potassium (Losartan Potassium) 100 Mg Tab, 1 TAB PO QAM for HYPERTENSION 10/15/23 Glimepiride (Glimepiride) 4 Mg Tab, 1 TAB PO BID for DIABETES 10/15/23 Discontinued Reported Medications Acetaminophen (Tylenol Extra Strength) 500 Mg Tab, 1 TAB PO DAILY PRN for MODERATE PAIN (4-6 PAIN SCALE) 01/09/25 Metoprolol Tartrate (Metoprolol Tartrate) 25 Mg Tab, 1 TAB PO BID for HYPERTENSION 01/09/25 Past Medical History Cardiac: HTN Pulmonary: No pertinent Hx Central Nervous System: No pertinent Hx GI: No pertinent Hx Hemotology/Oncology: No pertinent Hx Hepatobiliary: No pertinent Hx Psychiatric: No pertinent Hx Musculoskeletal: No pertinent Hx Rheumotologic: No pertinent Hx Infectious Disease: No peritnent Hx ENT: No pertinent Hx Renal/: No pertinent Hx Endocrine: NIDDM Dermatology: No pertinent Hx Past Surgical History: CABG Family History: DM Patient Family History: Diabetes mellitus G8 MOTHER, G8 FATHER, Smoker: No Hx (Negative) Alocohol: None Drugs: None Lives with: With family Domestic Violence: Neg Review of Systems Constitutional: No symptom reported Ears, Nose, & Throat: No symptom reported Eyes: No symptom reported Pulmonary/Respiratory: Dyspnea Cardiovascular: No symptom reported Gastrointestinal: No symptom reported Genitourinary: No symptom reported Musculoskeletal: No symptom reported Skin: No symptom reported Psychiatric: No symptom reported Endocrine: No symptom reported Hemotologic/Lymphatic: No symptom reported H&P Exam Vital Signs Vital Signs Date Time Temp Pulse Resp B/P (MAP) Pulse Ox O2 Delivery O2 Flow Rate FiO2 02/13/25 17:00 99.0 87 18 148/78 (101) 94 99.0 02/13/25 08:00 Nasal Cannula* 2 28 General Appeara: Well developed, Well nourished, Normal Appearance Head Exam: Normal inspection Neck Exam: Normal inspection, Non-tender, Normal alignment Eye Exam: bilateral eye Normal inspection, bilateral eye PERRL, bilateral eye EOMI Ear Exam: bilateral ear Auricle normal, bilateral ear Canal normal, bilateral ear TM normal Nasal Exam: Normal inspection Mouth: Normal Inspection Pulmonary/Respiratory: Decreased breath sounds Cardiovascular/Chest: Normal inspection Peripheral Pulses: 4+ Radial (R), 4+ Radial (L), 4+ Brachial (R), 4+ Brachial (L) Abdominal Exam: Normal bowel sounds Labs/Xrays Labs Test 02/13/25 17:36 02/13/25 10:27 02/12/25 13:47 02/11/25 11:27 Range/Units POC Glucose 209 H 70-106 mg/dl White Blood Count 4.7 4.4-10.8 10^3/uL Red Blood Count 3.89 L 4.5-5.90 10^6/uL Hemoglobin 11.5 #L 13.5-17.5 g/dL Hematocrit 34.1 #L 41.0-53.0 % Mean Corpuscular Volume 87.5 80.0-100.0 fL Mean Corpuscular Hemoglobin 29.4 28.0-32.0 pg Mean Corpuscular Hemoglobin Concent 33.6 32.0-36.0 g/dL Red Cell Distribution Width 16.8 H 11.8-14.3 % Platelet Count 377 # 140-450 10^3/uL Mean Platelet Volume 7.2 6.9-10.8 fL Neutrophils (%) (Auto) 50.8 37.0-80.0 % Lymphocytes (%) (Auto) 22.4 10.0-50.0 % Monocytes (%) (Auto) 16.4 H 0.0-12.0 % Eosinophils (%) (Auto) 10.1 H 0.0-7.0 % Basophils (%) (Auto) 0.3 0.0-2.0 % Neutrophils # (Auto) 2.4 1.6-8.6 10 ^3/uL Lymphocytes # (Auto) 1.0 0.4-5.4 10 ^3/uL Monocytes # (Auto) 0.8 0-1.3 10 ^3/uL Eosinophils # (Auto) 0.5 0-0.8 10 ^3/uL Basophils # (Auto) 0 0-0.2 10 ^3/uL Nucleated Red Blood Cells 0.0 % Sodium Level 135 L 136-145 mmol/L Potassium Level 3.9 3.5-5.1 mmol/L Chloride Level 94 L 98-107 mmol/L Carbon Dioxide Level 33 H 20-31 mmol/L Anion Gap 8 5-15 Blood Urea Nitrogen 17 9-23 mg/dL Creatinine 1.30 0.700-1.30 mg/dL Glomerular Filtration Rate Calc 58 >90 mL/min BUN/Creatinine Ratio 13.1 10.0-20.0 Serum Glucose 283 H 74-106 mg/dL Calcium Level 8.7 8.7-10.4 mg/dL Phosphorus Level 3.1 2.4-5.1 mg/dL Magnesium Level 1.8 1.6-2.6 mg/dL Total Bilirubin 0.6 0.2-1.0 mg/dL Aspartate Amino Transferase (AST) 34 13-40 U/L Alanine Aminotransferase (ALT) 51 H 7-40 U/L Alkaline Phosphatase 125 H 46-116 U/L Total Protein 5.8 5.7-8.2 g/dL Albumin 3.6 3.2-4.8 g/dL Thyroid Stimulating Hormone (TSH) 2.06 0.55-4.78 uIU/mL Test 02/10/25 15:26 02/09/25 17:31 02/07/25 20:00 02/07/25 17:33 Range/Units Body Fluid Source Pericardial fluid Body Fluid pH 9.0 Body Fluid WBC (Manual) 2514 H 0-200 CUMM Body Fluid RBC (Manual) 079287 H 0-2000 CUMM Body Fluid Mononuclear Cells 30 % Body Fluid Polymorphonuclear Cells 70 H 0-25 % Body Fluid Glucose 191 . mg/dL Prothrombin Time 12.0 H 9.3-11.8 sec Prothrombin Time INR 1.15 0.9-1.15 Urine Color Light-yellow Yellow Urine Clarity Clear Clear Urine pH 5.5 5.0-9.0 Urine Specific [place] 1.008 1.001-1.035 Urine Protein Negative Negative Urine Ketones Negative Negative Urine Blood Negative Negative /uL Urine Nitrite Negative Negative Urine Bilirubin Negative Negative Urine Urobilinogen Normal Negative mg/dL Urine Leukocyte Esterase Trace Negative /uL Urine RBC 1 0 - 3 /hpf Urine Microscopic WBC 0-3 /HPF Urine Squamous Epithelial Cells None seen <5 /hpf Urine Uric Acid Crystals Few None Seen /hpf Urine Amorphous Crystals Few None Seen /hpf Urine Bacteria None seen None Seen /hpf Urine Glucose Normal Normal mg/dL Platelet Estimate Decreased Anisocytosis (manual) Moderate Troponin I High Sensitivity 30 </=54 ng/L Test 02/07/25 14:11 Range/Units Lactic Acid Level 1.0 0.4-2.0 mmol/L B-Type Natriuretic Peptide 390.57 0-100 pg/mL Microbiology Date/Time Source Procedure Growth Status 02/10/25 15:26 Aspirate Gram Stain - Final Resulted 02/10/25 15:26 Aspirate Body Fluid Culture - Preliminary Resulted Assessment/Plan Plan Impression Acute hypoxemic respiratory failure Pleural effusions Atelectasis Dyspnea Patient seen and examined Events Low oxygen requirements On 2 liters nasal cannula Vital signs stable Labs and imaging reviewed Chest x-ray shows large left pleural effusions Management Supplemental oxygen Titrate to maintain sats 90% or above Incentive spirometry Antibiotics Bronchodilators Monitor renal function Monitor electrolytes Supplement as needed Will consider thoracentesis DVT prophylaxis Plan discussed with: Patient IKT RUBIO MD Feb 13, 2025 18:29
--- NOTE | 2025-02-13 18:30 | DVHNC2 ---
Procedure - left thoracentesis KIT RUBIO MD Feb 13, 2025 18:30
--- NOTE | 2025-02-13 20:55 | DVHINCON2 ---
Date of service: Feb 13, 2025 Family History: Diabetes mellitus G8 MOTHER, G8 FATHER, Allergies: Coded Allergies: NO KNOWN ALLERGIES (Unverified , 11/10/24) Home Meds Reported Medications Metformin Hydrochloride (Metformin Hcl) 1,000 Mg Tab, 1 TAB PO BIDWM for DIAB ETES TAKE WITH MORNING AND EVENING MEALS 01/09/25 Insulin Glargine (Lantus Solostar) 100 Unit/Ml Inj, 30 UNIT SC QPM for DIABETES 01/09/25 Gabapentin (Gabapentin) 100 Mg Cap, 1 CAP PO HS for NEUROPATHY 01/09/25 Ferrous Sulfate Dried (Iron High Potency) 65 Mg Tab, 1 TAB PO BID for SUPPLEMENT 01/09/25 Cholecalciferol (Vitamin D3) 1,000 Unit Cap, 1 CAP PO DAILY for SUPPLEMENT 01/09/25 Amlodipine Besylate (Amlodipine Besylate) 10 Mg Tab, 1 TAB PO QAM for HYPERTENSION 01/09/25 Aspirin (Aspirin Low Dose) 81 Mg Chw, 1 TAB PO DAILY for HEART ATTACK PREVENTION 10/15/23 Insulin Glargine (Lantus Solostar) 100 Unit/Ml Inj, 20 UNIT SC QAM for DIABETES 10/15/23 Atorvastatin Calcium (Lipitor) 40 Mg Tab, 1 TAB PO HS for HIGH CHOLESTEROL 10/15/23 Losartan Potassium (Losartan Potassium) 100 Mg Tab, 1 TAB PO QAM for HYPERTENSION 10/15/23 Glimepiride (Glimepiride) 4 Mg Tab, 1 TAB PO BID for DIABETES 10/15/23 Discontinued Reported Medications Acetaminophen (Tylenol Extra Strength) 500 Mg Tab, 1 TAB PO DAILY PRN for MODERATE PAIN (4-6 PAIN SCALE) 01/09/25 Metoprolol Tartrate (Metoprolol Tartrate) 25 Mg Tab, 1 TAB PO BID for HYPERTENSION 01/09/25 Current Medications Current Medications Medications (Trade) Dose Ordered Sig/Ankur Route PRN Reason Start Time Stop Time Status Last Admin Piperacillin Sod/ Tazobactam Sod 100 ml @ 25 mls/hr Q8HR IV 02/12/25 22:00 02/13/25 20:42 Vital Signs Vital Signs Date Time Temp Pulse Resp B/P (MAP) Pulse Ox O2 Delivery O2 Flow Rate FiO2 02/13/25 20:44 84 124/69 02/13/25 17:00 99.0 18 94 99.0 02/13/25 08:00 Nasal Cannula* 2 28 Labs/Diagnostic Data Labs Test 02/13/25 19:00 02/13/25 17:36 02/13/25 10:27 02/12/25 13:47 Range/Units POC Glucose 209 H 70-106 mg/dl White Blood Count 4.7 4.4-10.8 10^3/uL Red Blood Count 3.89 L 4.5-5.90 10^6/uL Hemoglobin 11.5 #L 13.5-17.5 g/dL Hematocrit 34.1 #L 41.0-53.0 % Mean Corpuscular Volume 87.5 80.0-100.0 fL Mean Corpuscular Hemoglobin 29.4 28.0-32.0 pg Mean Corpuscular Hemoglobin Concent 33.6 32.0-36.0 g/dL Red Cell Distribution Width 16.8 H 11.8-14.3 % Platelet Count 377 # 140-450 10^3/uL Mean Platelet Volume 7.2 6.9-10.8 fL Neutrophils (%) (Auto) 50.8 37.0-80.0 % Lymphocytes (%) (Auto) 22.4 10.0-50.0 % Monocytes (%) (Auto) 16.4 H 0.0-12.0 % Eosinophils (%) (Auto) 10.1 H 0.0-7.0 % Basophils (%) (Auto) 0.3 0.0-2.0 % Neutrophils # (Auto) 2.4 1.6-8.6 10 ^3/uL Lymphocytes # (Auto) 1.0 0.4-5.4 10 ^3/uL Monocytes # (Auto) 0.8 0-1.3 10 ^3/uL Eosinophils # (Auto) 0.5 0-0.8 10 ^3/uL Basophils # (Auto) 0 0-0.2 10 ^3/uL Nucleated Red Blood Cells 0.0 % Sodium Level 135 L 136-145 mmol/L Potassium Level 3.9 3.5-5.1 mmol/L Chloride Level 94 L 98-107 mmol/L Carbon Dioxide Level 33 H 20-31 mmol/L Anion Gap 8 5-15 Blood Urea Nitrogen 17 9-23 mg/dL Creatinine 1.30 0.700-1.30 mg/dL Glomerular Filtration Rate Calc 58 >90 mL/min BUN/Creatinine Ratio 13.1 10.0-20.0 Serum Glucose 283 H 74-106 mg/dL Calcium Level 8.7 8.7-10.4 mg/dL Phosphorus Level 3.1 2.4-5.1 mg/dL Magnesium Level 1.8 1.6-2.6 mg/dL Total Bilirubin 0.6 0.2-1.0 mg/dL Aspartate Amino Transferase (AST) 34 13-40 U/L Alanine Aminotransferase (ALT) 51 H 7-40 U/L Alkaline Phosphatase 125 H 46-116 U/L Total Protein 5.8 5.7-8.2 g/dL Albumin 3.6 3.2-4.8 g/dL Test 02/11/25 11:27 02/09/25 17:31 02/07/25 20:00 02/07/25 17:33 Range/Units Thyroid Stimulating Hormone (TSH) 2.06 0.55-4.78 uIU/mL Prothrombin Time 12.0 H 9.3-11.8 sec Prothrombin Time INR 1.15 0.9-1.15 Urine Color Light-yellow Yellow Urine Clarity Clear Clear Urine pH 5.5 5.0-9.0 Urine Specific [place] 1.008 1.001-1.035 Urine Protein Negative Negative Urine Ketones Negative Negative Urine Blood Negative Negative /uL Urine Nitrite Negative Negative Urine Bilirubin Negative Negative Urine Urobilinogen Normal Negative mg/dL Urine Leukocyte Esterase Trace Negative /uL Urine RBC 1 0 - 3 /hpf Urine Microscopic WBC 0-3 /HPF Urine Squamous Epithelial Cells None seen <5 /hpf Urine Uric Acid Crystals Few None Seen /hpf Urine Amorphous Crystals Few None Seen /hpf Urine Bacteria None seen None Seen /hpf Urine Glucose Normal Normal mg/dL Platelet Estimate Decreased Anisocytosis (manual) Moderate Troponin I High Sensitivity 30 </=54 ng/L Test 02/07/25 14:11 Range/Units Lactic Acid Level 1.0 0.4-2.0 mmol/L B-Type Natriuretic Peptide 390.57 0-100 pg/mL Microbiology Date/Time Source Procedure Growth Status 02/10/25 15:26 Aspirate Gram Stain - Final Resulted 02/10/25 15:26 Aspirate Body Fluid Culture - Preliminary Resulted Problems(with codes): (1) Mediastinitis (2) Lung consolidation (3) Pleural effusion (4) Bilateral pneumonia (5) Acute exacerbation of congestive heart failure (6) UTI (urinary tract infection) Plan/Recommendation ASSESSMENT AND PLAN: ID Problem List: \-- Recent CABG (Coronary Artery Bypass Graft) \-- Chronic kidney disease \-- Hypertension \-- Diabetes mellitus \-- Prior myocardial infarction ([place]) \-- Prior stroke \-- Pleural effusion (left, large, status post IR drainage) \-- Mediastinal hematoma post-CABG \-- Generalized weakness \-- Acute kidney injury (improving) \-- Bilateral lower extremity and scrotal edema \-- Urinary tract infection with Enterococcus (vancomycin sensitive) Assessment: This is a 70 y.o. male with past medical history of chronic kidney disease, hypertension, diabetes mellitus, prior myocardial infarction, stroke, and recent CABG at [facility], now presenting to [facility] with generalized weakness, altered mental status, and progressive bilateral lower extremity and scrotal swelling. Admission notable for: -White count 10.4 (peaked 11.5, now down to 4.7), hemoglobin 13.5 downtrending to 9.2, platelets 282 (then 235) -Sodium 131, BUN 38, creatinine 1.39 (improving to 1.3), lactic acid 1.0, BNP 390.57 -Chest X-ray: Cardiomegaly, mild CHF/interstitial prominence, left basilar infiltrate/effusion (thought to be postoperative) -CT chest: 6.2cm complex fluid collection in anterior mediastinum, now with IR drainage -Repeat imaging: Large left pleural effusion, compressive atelectasis, decrease in size of mediastinal collection post drainage, no DVT on Doppler, left lower lobe consolidation -Urine: Significant pyuria, leukocyte esterase 2+, Enterococcus growth (vancomycin sensitive), N[place]ira since 02/07 Course: -Empiric IV antibiotics started for possible infection, initial concern for mediastinal abscess or superinfected pleural effusion has diminished due to clin ical improvement, negative cultures from IR aspirate and pulmonary fluid, no fever -Current concern now higher for post-surgical hematoma (mediastinum) and hemothorax/pleural effusion, with consideration of balancing need for anticoagulation in recent CABG, deferred to cardiology/primary team -Renal function improving, vigilance with fluid management -Change antibiotics to vancomycin and doxycycline to complete an additional 7- day course; discontinue piperacillin-tazobactam (Zosyn) -Continue to monitor chest imaging, clinical stability, and consider further procedures as indicated Plan: \-- start vancomycin and ceftriaxone for Enterococcus UTI and to empirically cover post-surgical infection; discontinue Zosyn \-- Monitor hemoglobin and hemodynamics closely; continue to observe for ongoing bleeding or hemodynamic compromise, defer anticoagulation decisions to primary/cardiology teams given recent CABG and active mediastinal hematoma \-- Maintain [place] catheter with assessments for infection and necessity \-- Continue close monitoring of renal function and fluid status \-- Serial chest imaging per primary team recommendations \-- IR to reassess drainage needs or further intervention for mediastinal and pleural fluid collections \-- Infectious Diseases will continue to follow and provide recommendations \-- Discussed with primary, cardiology, and IR teams; plan may change as clinical situation evolves \-- Please contact Infectious Disease for questions/concerns Isolation Precautions: Standard \*Assessment and plan discussed with the patient/family as written above \*Plan is subject to change pending new diagnostics or clinical evolution; updates may be added as an addendum Thank you for this consult. ID will continue to follow. Guadalupe Garrett M.D. [facility] Ph: ? Teams text: [email or web address] Electronically signed by: Guadalupe Garrett MD, 02/13/2025 \ History: The patient's chart and medications were reviewed in detail and the patient was seen and examined. History obtained from: patient and family Mr. Paez is a 70-year-old male with history of chronic kidney disease, hypertension, diabetes, prior [place], stroke, and recent CABG (2 weeks ago) presenting with generalized weakness, altered mental status, and worsening bilateral lower extremity and scrotal swelling following open heart surgery. He was recently in a home health facility with family reporting progressive symptoms. Transferred to [facility] for evaluation. Denies tobacco, alcohol, or IV drug use. No recent surgeries outside of CABG. Review of Systems: A complete 10 system review of systems was completed and negative except as noted in the HPI or here. ROS: -CONSTITUTIONAL: Endorses generalized weakness. Denies weight loss, fever and chills. -HEENT: Denies changes in vision or hearing. -RESPIRATORY: Denies cough or shortness of breath. -CV: Denies chest pain or palpitations. -GI: Denies abdominal pain, nausea, vomiting, diarrhea. -: Endorses scrotal swelling. Denies dysuria or urinary frequency. -MSK: Denies myalgia or joint pain. -SKIN: Denies rash or pruritus. -NEUROLOGICAL: Endorses altered mental status (per family). Denies headache, syncope. -PSYCHIATRIC: Denies recent changes in mood, anxiety, or depression. Past Medical History: Diagnosis Date Coronary artery disease Chronic kidney disease Hypertension Diabetes mellitus Myocardial infarction Stroke Past Surgical History: CABG (coronary artery bypass graft) at [facility], 2 weeks prior to admission No other pertinent surgical history Home Medications: Aspirin Atorvastatin Metoprolol Amlodipine Furosemide (Lasix) Hydrocodone-acetaminophen ([place]) Docusate Allergies: No known drug allergies Family History: Not provided in transcript Social History: -Tobacco: Never -Alcohol: Never -Illicit Drug Use: Never -Home health facility prior to admission -Social history details otherwise not provided Objective: Vital Signs on Arrival: Temp: 99.9 F BP: 149/71 Pulse: 68 Resp: 18 SpO2: 79% on room air Most Recent Vital Signs: Temp: 98.1 F BP: 120/64 Pulse: 4\* (likely a documentation error; clinical assessment indicates hemodynamic stability) Resp: 15 SpO2: 93% on 2 L O2 via nasal cannula Admission Weight: 86.4 kg Physical Exam: General: NAD Neck: Supple. No masses. HEENT: PERRL. Normal lids and conjunctiva. Moist mucous membranes. Oropharynx without lesions, exudates or excessive erythema. Normal appearance of the external aspects of the nose and ears. Heart: Regular rhythm, normal rate. No murmur. Bilateral lower extremity edema and scrotal swelling noted. Lungs: Normal respiratory effort. Clear to auscultation bilaterally. No wheezes. No crackles. Abdomen: Soft. Non-tender. Non-distended. No masses or abdominal hernia. Msk: No digital cyanosis. Normal strength and tone in all 4 limbs. Skin: Warm and dry, no rashes. Neuro: Alert. No facial droop or slurred speech. Extra-ocular movements intact. Sensation intact to soft touch in all 4 limbs. Psych: Appropriate mood. Full affect. Oriented to person, place, time, and situation. Lines: Active Lines: -Two-way [place] catheter since 02/07 -IR drainage catheter, mediastinum Diagnostic Studies: Available diagnostic studies were reviewed personally. Significant relevant results and findings are outlined below or addressed in the Assessment and Plan above. Pertinent Imaging: Chest X-Ray: -Cardiomegaly -Postoperative changes related to CABG, interstitial prominence compatible with mild CHF -Left basilar infiltrate and effusion, attributed to postoperative changes, less likely pneumonia Chest CT (pre-IR drainage): -6.2 cm organized fluid collection anterior mediastinum abutting chest wall/pericardium, mass effect on lingula -Left lower lobe consolidation Chest CT (post-IR drainage): -Drainage catheter in place, mediastinal collection/abscess diminished -Extremely large left pleural effusion, marked compressive atelectasis Lower Extremity Doppler Ultrasound: -No evidence of DVT Laboratory Data: -WBC initially 10.4 (peaked 11.5, now 4.7), hemoglobin 13.5 down to 9.2, platelets 282 down to 235 -Sodium 131, BUN 38, creatinine 1.39 improving to 1.3, lactic acid 1.0, BNP 390.57 -Urinalysis: Pyuria, leukocyte esterase 2+, Enterococcus (vancomycin sensitive) -Aspirated mediastinal and pulmonary fluid cultures: Negative Microbiology: -Urine culture: Enterococcus, vancomycin sensitive -Aspirated fluid (mediastinum) and pulmonary fluid: No growth Electronically signed by: Guadalupe Garrett MD, 02/13/2025 Plan discussed with: Patient GUADALUPE GARRETT MD Feb 13, 2025 20:55
[2025-02-13] MEDS ORDERED: VANCOMYCIN PER PHARMACY 0 MG IV SCH (21:15)
--- NOTE | 2025-02-13 23:57 | DVHPN2 ---
Progress Note - Dictate Date Seen: Feb 13, 2025 Medical Necessity Reason Pt with a Central, PICC or Fol: No Subjective Patient was seen and evaluated in follow up. Patient is on 2 LPM NC. No oernight events. BS elevated in the 230s. CT chest was extremely large left pleural effusion with marked compressive left lung atelectasis. Drainage catheter interest the chest anteriorly to the left of midline but does not appear to be within the location of the pleural fluid. The previously noted mediastinal fluid collection/ abscess has moderately diminished in size when compared to 02/07/2025. Telemetry reviewed. vital signs Vital Sign Date Time Temp Pulse Resp B/P (MAP) Pulse Ox O2 Delivery O2 Flow Rate FiO2 02/13/25 21:44 80 136/69 02/13/25 21:00 98.2 18 91 98.2 02/13/25 08:00 Nasal Cannula* 2 28 Total Intake and Output 02/12/25 02/12/25 02/13/25 15:00 23:00 07:00 Intake Total 100 ml 740 ml 340 ml Output Total 2250 ml 1500 ml Balance 100 ml -1510 ml -1160 ml medications Current Medications Medications Dose Ordered Sig/Ankur Route Start Time Stop Time Status Last Admin Dose Admin Aspirin 81 mg DAILY PO 02/08/25 10:00 02/13/25 10:00 81 MG Atorvastatin Calcium 20 mg HS PO 02/07/25 22:00 02/13/25 20:42 20 MG Metoprolol Tartrate 25 mg BID PO 02/07/25 22:00 02/13/25 20:44 25 MG Amlodipine Besylate 10 mg DAILY PO 02/08/25 10:00 02/13/25 08:53 10 MG Sodium Chloride 10 ml Q8HR IV 02/07/25 22:00 02/13/25 20:42 10 ML Acetaminophen/ Hydrocodone Bitart 1 tab Q4HP PRN PO 02/07/25 15:30 02/13/25 03:59 1 TAB Ondansetron HCl 4 mg Q4HP PRN IV 02/07/25 15:30 02/07/25 21:03 4 MG Docusate Sodium 100 mg BIDPRN PRN PO 02/07/25 15:30 02/13/25 03:59 100 MG Acetaminophen 650 mg Q6HP PRN PO 02/07/25 15:30 Nitroglycerin 0.4 mg Q5MINP PRN SL 02/07/25 17:00 Morphine Sulfate 2 mg Q30M PRN IV 02/07/25 17:00 02/07/25 21:04 2 MG Furosemide 40 mg BIDD IV 02/08/25 18:00 02/13/25 16:42 40 MG Diagnostic Test (Pha) 1 strip ACHS 02/09/25 17:00 02/13/25 20:52 1 STRIP Insulin Human Regular HS SC 02/09/25 22:00 02/13/25 20:52 4 UNITS Insulin Human Regular AC SC 02/09/25 17:00 02/13/25 17:00 6 UNITS Dextrose 50 ml UD PRN IV 02/09/25 13:00 Heparin Sodium (Porcine) 5,000 units Q12HR SC 02/09/25 22:00 02/13/25 20:53 5,000 UNITS Insulin Glargine 20 units QAM SC 02/10/25 07:00 02/13/25 07:00 20 UNITS Ceftriaxone Sodium/Dextrose 50 ml @ 50 mls/hr DAILY IV 02/14/25 10:00 Vancomycin HCl 0 ml @ 0 mls/hr UD IV 02/13/25 21:15 Vancomycin HCl 300 ml @ 200 mls/hr Q24H IV 02/13/25 22:00 02/13/25 22:40 200 MLS/HR objective GENERAL: Alert and oriented x 3. No acute distress. EYES: PERRL, EOMI. Anicteric. HENT: Moist mucous membranes. LUNGS: Clear to auscultation bilaterally. CARDIOVASCULAR: Regular rate and rhythm. ABDOMEN: Soft, non-tender and non-distended. EXTREMITIES: No edema. NEUROLOGIC: No focal neurological deficits. SKIN: Multiple opened wounds to bilateral lower extremities. Healing vertical scar to midline chest. Pigtail drain to upper anterior chest. laboratory and microbiology Laboratory Tests 02/13/25 10:27 Test 02/13/25 10:27 Range/Units Serum Glucose 283 H 74-106 mg/dL Problem List Problem List Coronary artery disease status post triple-vessel CABG on 01/16/25. Fluid collection in anterior mediastinum. Acute on chronic HFpEF, NYHA class III. Hypertension . Dyslipidemia . Acute left 1st and 2nd rib fracture (per chest CT). Pulmonary hypertension, moderate degree. Insulin-dependent Type 2 diabetes mellitus . History of CVA without residual deficit . Obesity. Assessment/Plan Continued all current supportive medical care. Patient has been seen by Monique Layton NP on my behalf, her and I discussed the plan with the patient. A transthoracic echocardiogram done on this admission reveals EF of 60% with mild LV diastolic dysfunction, RVSP 44 mmHg. The patient remained sinus rhythm with no PVCs noted upon reviewing international sourcing manager overnight. Continue to monitor on telemetry. Continue to monitor electrolytes and replete as needed. Advised to follow-up with the patient's Operations Vocational Instructor in outpatient setting. Additional plan as per the hospital course. Assessment/Plan Continued all current supportive medical care. IV antibiotics as ordered. Diuretics with Lasix. Amlodipine. Aspirin, Metoprolol. Morphine and [place] for pain management. Additional plan as per the hospital course. Dietary Evaluation Review Comments: Nutrition Recommendation 1) Gordon 1 pk BID 2) Consider CCHO 60gm + cardiac diet 3) Monitor PO intake, lab values, weight trend, and I/O Expected Outcomes/Goals: Wound to improve Lab values to improve Fu 2-3 days Plan discussed with: Patient SISSY CABRAL MD Feb 13, 2025 23:57
[2025-02-14] VITALS (21 sets, daily range): BP systolic 105–148; BP diastolic 48–106; PULSE 47–104; RESP 12–21; TEMP 97.6–99.4; O2SAT 91–99
[2025-02-14] MEDS: MORPHINE SULFATE INJ 2 MG/ml SYRG IV ONE ×2 (02:07→18:01)
[2025-02-14 09:45] LABS: Hemoglobin 12.4 g/dL (13.5-17.5); Nucleated Red Blood Cells % 0.2 %
[2025-02-14 09:46] LABS: Hematocrit 37.0 % (41.0-53.0); Mean Corpuscular Hemoglobin 29.7 pg (28.0-32.0); Mean Corpuscular Volume 88.3 fL (80.0-100.0)
[2025-02-14 09:59] LABS: Anion Gap 10 (5-15); Calcium 9.3 mg/dL (8.7-10.4); Potassium 4.6 mmol/L (3.5-5.1)
[2025-02-14] MEDS: cefTRIAXone 2GM/50ML D5W 50 ML IV SCH (10:02)
[2025-02-14 10:04] LABS: Carbon Dioxide 33 mmol/L (20-31); Chloride 92 mmol/L (98-107); Sodium 135 mmol/L (136-145)
[2025-02-14 10:05] LABS: BUN/Creatinine Ratio 11.9 (10.0-20.0); Blood Urea Nitrogen 17 mg/dL (9-23)
[2025-02-14 10:09] LABS: Glucose 224 mg/dL (74-106)
[2025-02-14] MEDS ORDERED: VANCOMYCIN 1.5GM/250ML 250 ML IV SCH (16:45)
--- NOTE | 2025-02-14 17:31 | DVHPN2 ---
Subjective Patient reporting shortness of breath. Reviewed: Care Plan Changes from previous H/P or p: No Changes General: Per HPI Eyes: No Pain, No Vision change, No Conjunctivae inflammation, No Eyelid inflammation, No Other, No Redness ENT: No Ear pain, No Ear discharge, No Nose pain, No Nose discharge, No Nose congestion, No Mouth pain, No Mouth swelling, No Throat pain, No Throat swelling, No Other Cardiovascular: No Chest Pain, No Palpitations, No Orthopnea, No Paroxysmal Noc. Dyspnea; Edema; No Lt Headedness, No Other Respiratory: No Cough, No Dry, No Shortness of breath, No SOB with excertion, No Wheezing, No Hemoptysis, No Pleuritic Pain, No Sputum, No Other Gastrointestinal: No Nausea, No Vomiting, No Abdominal Pain, No Diarrhea, No Constipation, No Melena, No Hematochezia, No Other Genitourinary: No Dysuria, No Frequency, No Incontinence, No Hematuria, No Retention; Other (Scrotum/penis swelling, Nogueira catheter in place.) Musculoskeletal: other (Lower extremity swelling); No neck pain, No shoulder pain, No arm pain, No back pain, No hand pain, No leg pain, No foot pain Skin: No Rash, No Lesions, No Jaundice, No Bruising; Other (Skin graft bilateral lower extremity) Objective Vitals Vital Signs Date Time Temp Pulse Resp B/P (MAP) Pulse Ox O2 Delivery O2 Flow Rate FiO2 02/14/25 13:00 97.6 66 17 138/69 (92) 95 97.6 02/14/25 08:00 Nasal Cannula* 2 28 Intake/Output Intake and Output 02/14/25 07:00 Intake Total 1440 ml Output Total 3100 ml Balance -1660 ml Intake Oral 1240 ml IV Total 200 ml Output Urine Total 3100 ml General Appearance: Alert, Oriented X3, Cooperative, mild distress HEENT: Atraumatic, PERRLA Lungs: Other (Absent breath sounds to left upper and lower lung) Chest/Breasts: Other (Mediastinal chest tube noted to be retracted/malpositioned) Cardiovascular: Normal S1, Normal S2 Musculoskeletal: Normal sensory function, Normal motor function Extremities: No clubbing, No cyanosis Skin: Dry, Intact Psych/Mental Status: Mental status NL, Mood NL Medications Current Medications Medications Dose Ordered Sig/Ankur Route Start Time Stop Time Status Last Admin Dose Admin Aspirin 81 mg DAILY PO 02/08/25 10:00 02/14/25 10:02 81 MG Atorvastatin Calcium 20 mg HS PO 02/07/25 22:00 02/13/25 20:42 20 MG Metoprolol Tartrate 25 mg BID PO 02/07/25 22:00 02/14/25 10:03 25 MG Amlodipine Besylate 10 mg DAILY PO 02/08/25 10:00 02/14/25 10:03 10 MG Sodium Chloride 10 ml Q8HR IV 02/07/25 22:00 02/14/25 13:30 10 ML Acetaminophen/ Hydrocodone Bitart 1 tab Q4HP PRN PO 02/07/25 15:30 02/14/25 10:04 1 TAB Ondansetron HCl 4 mg Q4HP PRN IV 02/07/25 15:30 02/07/25 21:03 4 MG Docusate Sodium 100 mg BIDPRN PRN PO 02/07/25 15:30 02/13/25 03:59 100 MG Acetaminophen 650 mg Q6HP PRN PO 02/07/25 15:30 Nitroglycerin 0.4 mg Q5MINP PRN SL 02/07/25 17:00 Morphine Sulfate 2 mg Q30M PRN IV 02/07/25 17:00 02/07/25 21:04 2 MG Furosemide 40 mg BIDD IV 02/08/25 18:00 02/14/25 06:09 40 MG Diagnostic Test (Pha) 1 strip ACHS 02/09/25 17:00 02/14/25 11:29 1 STRIP Insulin Human Regular HS SC 02/09/25 22:00 02/13/25 20:52 4 UNITS Insulin Human Regular AC SC 02/09/25 17:00 02/14/25 11:28 12 UNITS Dextrose 50 ml UD PRN IV 02/09/25 13:00 Heparin Sodium (Porcine) 5,000 units Q12HR SC 02/09/25 22:00 02/14/25 10:22 5,000 UNITS Insulin Glargine 20 units QAM SC 02/10/25 07:00 02/14/25 06:00 20 UNITS Ceftriaxone Sodium/Dextrose 50 ml @ 50 mls/hr DAILY IV 02/14/25 10:00 02/14/25 10:02 50 MLS/HR Vancomycin HCl 0 ml @ 0 mls/hr UD IV 02/13/25 21:15 Vancomycin HCl 250 ml @ 166.667 mls/hr Q24H IV 02/14/25 16:45 Laboratory Results Laboratory Tests 02/14/25 09:20 Chemistry Test 02/14/25 09:20 Calcium Level 9.3 mg/dL (8.7-10.4) Urinalysis Test 02/07/25 20:00 Urine Color Light-yellow (Yellow) Urine Clarity Clear (Clear) Urine pH 5.5 (5.0-9.0) Urine Specific [place] 1.008 (1.001-1.035) Urine Protein Negative (Negative) Urine Ketones Negative (Negative) Urine Blood Negative /uL (Negative) Urine Nitrite Negative (Negative) Urine Bilirubin Negative (Negative) Urine Urobilinogen Normal mg/dL (Negative) Urine Leukocyte Esterase Trace /uL (Negative) Urine RBC 1 /hpf (0 - 3) Urine Microscopic WBC /HPF (0-3) Urine Squamous Epithelial Cells None seen /hpf (<5) Urine Uric Acid Crystals Few /hpf (None Seen) Urine Amorphous Crystals Few /hpf (None Seen) Urine Bacteria None seen /hpf (None Seen) Urine Glucose Normal mg/dL (Normal) Microbiology Microbiology Date/Time Source Procedure Growth Status 02/13/25 19:00 Pleural Fluid Gram Stain - Final Resulted 02/13/25 19:00 Pleural Fluid Aerobic Culture - Preliminary Resulted Labs and/or images reviewed: Labs reviewed by me, Image(s) reviewed by me Assessment/Plan Assessment/Plan Impression: -acute hypoxic respiratory failure -left lung atelectasis with worsening pleural effusion despite thoracentesis -coronary artery disease with recent CABG -? UTI -acute kidney injury,? Vasomotor nephropathy -diabetes mellitus Plan: -patient had IR consultation with mediastinal drain placed to assist with mediastinal fluid as well as left pleural fluid. Drain was assessed to be malpositioned today. Drain was removed. Discussion was made with patient's daughter Guera regarding plan of care. Attempts will be made to have patient's CT surgeon see patient at this facility. Patient will have large bore left pleural chest tube inserted by the ER physician. -continue current antibiotic therapy -regular insulin sliding scale -physical therapy -transferred to step-down ICU -repeat labs and chest x-ray in a.m. Total time spent with patient discussing and formulating plan of care: 35 minutes. This medical document was created using an electronic medical record system with [employer] dictation system. Although this document has been carefully reviewed, there may still be some phonetic and typographical errors. These areas are purely typographical due to imperfections of the software programs, and do not reflect any compromise in the patient's medical care. Plan discussed with: Patient, Daughter, Other (RN) My Orders Orders - CRISTIAN BUTT NP Procedure Category Date Status Time * Surgical Consult CONS 02/14/25 Transmitted * Inclusion Manager CONS 02/14/25 Transmitted Consult Transfer Orders XFER 02/14/25 Verified 17:22 Date of Service: Feb 14, 2025 Billing Provider: CRISTIAN BUTT NP Common Visit Codes: [id number] CARE 30-74 MIN CRISTIAN BUTT NP Feb 14, 2025 17:31
[2025-02-14] MEDS: LIDOCAINE 2% (LOCAL ANESTH.) PF 5ml SDV ONE (17:35)
--- NOTE | 2025-02-14 17:41 | DVHPN2 ---
Progress Note - Dictate Date Seen: Feb 14, 2025 Medical Necessity Reason Pt with a Central, PICC or Fol: No vital signs Vital Sign Date Time Temp Pulse Resp B/P (MAP) Pulse Ox O2 Delivery O2 Flow Rate FiO2 02/14/25 17:00 98.3 80 18 132/70 (90) 94 98.3 02/14/25 08:00 Nasal Cannula* 2 28 Total Intake and Output 02/13/25 02/13/25 02/14/25 15:00 23:00 07:00 Intake Total 700 ml 540 ml 200 ml Output Total 1500 ml 1600 ml Balance 700 ml -960 ml -1400 ml medications Current Medications Medications Dose Ordered Sig/Ankur Route Start Time Stop Time Status Last Admin Dose Admin Aspirin 81 mg DAILY PO 02/08/25 10:00 02/14/25 10:02 81 MG Atorvastatin Calcium 20 mg HS PO 02/07/25 22:00 02/13/25 20:42 20 MG Metoprolol Tartrate 25 mg BID PO 02/07/25 22:00 02/14/25 10:03 25 MG Amlodipine Besylate 10 mg DAILY PO 02/08/25 10:00 02/14/25 10:03 10 MG Sodium Chloride 10 ml Q8HR IV 02/07/25 22:00 02/14/25 13:30 10 ML Acetaminophen/ Hydrocodone Bitart 1 tab Q4HP PRN PO 02/07/25 15:30 02/14/25 10:04 1 TAB Ondansetron HCl 4 mg Q4HP PRN IV 02/07/25 15:30 02/07/25 21:03 4 MG Docusate Sodium 100 mg BIDPRN PRN PO 02/07/25 15:30 02/13/25 03:59 100 MG Acetaminophen 650 mg Q6HP PRN PO 02/07/25 15:30 Nitroglycerin 0.4 mg Q5MINP PRN SL 02/07/25 17:00 Morphine Sulfate 2 mg Q30M PRN IV 02/07/25 17:00 02/07/25 21:04 2 MG Furosemide 40 mg BIDD IV 02/08/25 18:00 02/14/25 06:09 40 MG Diagnostic Test (Pha) 1 strip ACHS 02/09/25 17:00 02/14/25 11:29 1 STRIP Insulin Human Regular HS SC 02/09/25 22:00 02/13/25 20:52 4 UNITS Insulin Human Regular AC SC 02/09/25 17:00 02/14/25 11:28 12 UNITS Dextrose 50 ml UD PRN IV 02/09/25 13:00 Heparin Sodium (Porcine) 5,000 units Q12HR SC 02/09/25 22:00 02/14/25 10:22 5,000 UNITS Insulin Glargine 20 units QAM SC 02/10/25 07:00 02/14/25 06:00 20 UNITS Ceftriaxone Sodium/Dextrose 50 ml @ 50 mls/hr DAILY IV 02/14/25 10:00 02/14/25 10:02 50 MLS/HR Vancomycin HCl 0 ml @ 0 mls/hr UD IV 02/13/25 21:15 Vancomycin HCl 250 ml @ 166.667 mls/hr Q24H IV 02/14/25 16:45 laboratory and microbiology Laboratory Tests 02/14/25 09:20 Test 02/14/25 09:20 Range/Units Serum Glucose 224 H 74-106 mg/dL Assessment/Plan Impression Acute hypoxemic respiratory failure Pleural effusions Atelectasis Dyspnea Patient seen and examined Events Low oxygen requirements On 2 liters nasal cannula No distress Thoracentesis was performed at the bedside See separate note for procedure in detail Labs and imaging reviewed Management Supplemental oxygen Titrate to maintain sats 90% or above Incentive spirometry Antibiotics Bronchodilators Monitor renal function Monitor electrolytes Supplement as needed DVT prophylaxis Dietary Evaluation Review Comments: Nutrition Recommendation 1) Gordon 1 pk BID 2) Consider CCHO 60gm + cardiac diet 3) Monitor PO intake, lab values, weight trend, and I/O Expected Outcomes/Goals: Wound to improve Lab values to improve Fu 2-3 days Plan discussed with: Patient KIT RUBIO MD Feb 14, 2025 17:41
--- NOTE | 2025-02-14 17:44 | DVHNC2 ---
Procedure - DOS: 02/13/2025 Procedure- Left sided Thoracentesis ultrasound guided Indication- Pleural effusions Procedure in detail Consent was obtained and timeout performed per protocol. The patient was placed in the sitting position and ultrasound SonoSite was used to localize pleural fluid. ChloraPrep was used to clean the operative field and Lidocaine for local analgesia. Thoracentesis catheter was advanced over the needle, attached to the suction bottle and approximately 500 cc of blood tinged fluid was drained from the left pleural space. At the end of the procedure, the catheter was removed and dressing applied. Samples obtained for diagnostic testing. Chest-x ray ordered. No complications KIT RUBIO MD Feb 14, 2025 17:44
--- NOTE | 2025-02-14 17:59 | DVHNC2 ---
Chest Tube Indication: Hemothorax Procedure: Sterile preparation Anesthetic: Lidocaine Site: L 5th intercostal space Drainage: Fluid Date of Service: Feb 14, 2025 Billing Provider: JESSICA LABOY MD Common Visit Codes: [id number] INP/OBS CARE (HIGH) Secondary Visit Codes: [id number] STANDBY SERVICE Consultation Codes: [id number] CONSULT <45MIN Procedure Codes: [id number] OF CHEST TUBE JESSICA LABOY MD Feb 14, 2025 17:59
--- NOTE | 2025-02-14 18:38 | DVH ---
CHEST RADIOGRAPH Indication: chest tube insertion Technique: Single frontal view of the chest was obtained Comparison: CT CHEST WITHOUT CONTRAST on DOS: 02/13/25, CT CHEST WITHOUT CONTRAST on DOS: 02/10/25, CT CHEST WITHOUT CONTRAST on DOS: 02/07/25 FINDINGS: Lines and Tubes: Sternal wire sutures in place. Chest tube in place on the left with the tip in the lower lung field medially. Lungs: Left lower lobe consolidation. Pleura: Possible left pleural effusion No pneumothorax. Cardiomediastinal contours: Unremarkable Bones: No acute osseous abnormality. IMPRESSION: 1. Left-sided chest tube in place with the tip noted medially in the retrocardiac area. 2. Consolidation left lower lobe. 3. Sternal wire sutures in place. 4. Left pneumothorax not visualized.
[2025-02-14] MEDS: VANCOMYCIN 1.5GM/250ML 250 ML IV SCH (18:50)
[2025-02-14 21:01] LABS: Potassium 4.0 mmol/L (3.5-5.1)
[2025-02-14 21:02] LABS: Anion Gap 9 (5-15); Carbon Dioxide 30 mmol/L (20-31)
[2025-02-14 21:07] LABS: BUN/Creatinine Ratio 11.7 (10.0-20.0); Blood Urea Nitrogen 18 mg/dL (9-23)
[2025-02-14 21:08] LABS: Magnesium 2.0 mg/dL (1.6-2.6)
[2025-02-14 21:19] LABS: Calcium 8.5 mg/dL (8.7-10.4); Chloride 96 mmol/L (98-107); Glucose 247 mg/dL (74-106); Sodium 135 mmol/L (136-145)
--- NOTE | 2025-02-14 21:35 | DVHPN2 ---
Progress Note - Dictate Date Seen: Feb 14, 2025 Medical Necessity Reason Pt with a Central, PICC or Fol: No Subjective Patient was seen and evaluated in follow up in the [facility]. Patient underwent left ultrasound guided thoracentesis with approximately 500 cc of blood tinged fluid removed. Patient had a left chest tube placed today due to hemothorax. The patient is on 2 LPM NC. vital signs Vital Sign Date Time Temp Pulse Resp B/P (MAP) Pulse Ox O2 Delivery O2 Flow Rate FiO2 02/14/25 20:00 76 19 96 Nasal Cannula* 2 28 02/14/25 18:32 115/61 (79) 02/14/25 17:51 98.7 98.7 Total Intake and Output 02/13/25 02/13/25 02/14/25 15:00 23:00 07:00 Intake Total 700 ml 540 ml 200 ml Output Total 1500 ml 1600 ml Balance 700 ml -960 ml -1400 ml medications Current Medications Medications Dose Ordered Sig/Ankur Route Start Time Stop Time Status Last Admin Dose Admin Aspirin 81 mg DAILY PO 02/08/25 10:00 02/14/25 10:02 81 MG Atorvastatin Calcium 20 mg HS PO 02/07/25 22:00 02/13/25 20:42 20 MG Metoprolol Tartrate 25 mg BID PO 02/07/25 22:00 02/14/25 10:03 25 MG Amlodipine Besylate 10 mg DAILY PO 02/08/25 10:00 02/14/25 10:03 10 MG Sodium Chloride 10 ml Q8HR IV 02/07/25 22:00 02/14/25 13:30 10 ML Acetaminophen/ Hydrocodone Bitart 1 tab Q4HP PRN PO 02/07/25 15:30 02/14/25 18:15 1 TAB Ondansetron HCl 4 mg Q4HP PRN IV 02/07/25 15:30 02/07/25 21:03 4 MG Docusate Sodium 100 mg BIDPRN PRN PO 02/07/25 15:30 02/13/25 03:59 100 MG Acetaminophen 650 mg Q6HP PRN PO 02/07/25 15:30 Nitroglycerin 0.4 mg Q5MINP PRN SL 02/07/25 17:00 Morphine Sulfate 2 mg Q30M PRN IV 02/07/25 17:00 02/07/25 21:04 2 MG Furosemide 40 mg BIDD IV 02/08/25 18:00 02/14/25 18:15 40 MG Diagnostic Test (Pha) 1 strip ACHS 02/09/25 17:00 02/14/25 18:15 1 STRIP Insulin Human Regular HS SC 02/09/25 22:00 02/13/25 20:52 4 UNITS Insulin Human Regular AC SC 02/09/25 17:00 02/14/25 18:21 9 UNITS Dextrose 50 ml UD PRN IV 02/09/25 13:00 Heparin Sodium (Porcine) 5,000 units Q12HR SC 02/09/25 22:00 02/14/25 10:22 5,000 UNITS Insulin Glargine 20 units QAM SC 02/10/25 07:00 02/14/25 06:00 20 UNITS Ceftriaxone Sodium/Dextrose 50 ml @ 50 mls/hr DAILY IV 02/14/25 10:00 02/14/25 10:02 50 MLS/HR Vancomycin HCl 0 ml @ 0 mls/hr UD IV 02/13/25 21:15 Vancomycin HCl 250 ml @ 166.667 mls/hr Q24H IV 02/14/25 18:30 02/14/25 18:50 166.667 MLS/HR objective GENERAL: Alert and oriented x 3. No acute distress. EYES: PERRL, EOMI. Anicteric. HENT: Moist mucous membranes. LUNGS: Decreased breath sounds. CARDIOVASCULAR: Regular rate and rhythm. ABDOMEN: Soft, non-tender and non-distended. EXTREMITIES: No edema. NEUROLOGIC: No focal neurological deficits. SKIN: Multiple opened wounds to bilateral lower extremities. Healing vertical scar to midline chest. Pigtail drain to upper anterior chest. laboratory and microbiology Laboratory Tests 02/14/25 20:36 02/14/25 09:20 Test 02/14/25 20:36 Range/Units Serum Glucose 247 H 74-106 mg/dL Problem List Coronary artery disease status post triple-vessel CABG on 01/16/25. Fluid collection in anterior mediastinum. Acute on chronic HFpEF, NYHA class III. Hypertension. Dyslipidemia. Acute left 1st and 2nd rib fracture (per chest CT). Pulmonary hypertension, moderate degree. Insulin-dependent Type 2 diabetes mellitus. History of CVA without residual deficit. Obesity. Hemothorax. Assessment/Plan Continued all current supportive medical care. Morphine and Stout for pain management. Amlodipine. Aspirin, Lipitor, Metoprolol. IV antibiotics as ordered. Diuretics with Lasix. Additional plan as per the hospital course. Critical care time of 45 minutes provided to include time spent evaluation of patient at bedside, when appropriate patient/family education for diagnosis, treatment plan, review of pertinent medical information and discussion of care with specialty providers and PCP Dietary Evaluation Review Comments: Nutrition Recommendation 1) Gordon 1 pk BID 2) Consider CCHO 60gm + cardiac diet 3) Monitor PO intake, lab values, weight trend, and I/O Expected Outcomes/Goals: Wound to improve Lab values to improve Fu 2-3 days Plan discussed with: Patient SISSY CABRAL MD Feb 14, 2025 21:35
--- NOTE | 2025-02-14 21:42 | DVH ---
CHEST RADIOGRAPH Indication: post chest tube insertion Technique: Single frontal view of the chest was obtained Comparison: XY CHEST PORTABLE on DOS: 02/14/25, CT CHEST WITHOUT CONTRAST on DOS: 02/13/25, CT CHEST WI THOUT CONTRAST on DOS: 02/10/25 FINDINGS: Lines and Tubes: Left-sided chest tube in place with the tip left base near the diaphragm. Lungs: No focal consolidation. Pleura: No effusion. No pneumothorax. Cardiomediastinal contours: Unremarkable Bones: No acute osseous abnormality. IMPRESSION: 1. No acute cardiopulmonary disease. 2. Left-sided chest tube in place with the tip at the left diaphragm.
[2025-02-15] VITALS (34 sets, daily range): BP systolic 102–186; BP diastolic 49–93; PULSE 75–145; RESP 10–23; TEMP 98.3–99.1; O2SAT 90–98
[2025-02-15 06:06] LABS: Nucleated Red Blood Cells % 0.0 %
[2025-02-15 06:37] LABS: Anion Gap 10 (5-15); Potassium 4.2 mmol/L (3.5-5.1); Sodium 139 mmol/L (136-145)
[2025-02-15 06:39] LABS: Calcium 9.2 mg/dL (8.7-10.4)
[2025-02-15 06:43] LABS: BUN/Creatinine Ratio 14.9 (10.0-20.0)
[2025-02-15 06:51] LABS: Blood Urea Nitrogen 24 mg/dL (9-23); Carbon Dioxide 32 mmol/L (20-31); Chloride 97 mmol/L (98-107); Glucose 173 mg/dL (74-106); Hematocrit 34.5 % (41.0-53.0); Hemoglobin 11.8 g/dL (13.5-17.5); Mean Corpuscular Hemoglobin 29.6 pg (28.0-32.0); Mean Corpuscular Volume 86.7 fL (80.0-100.0)
--- NOTE | 2025-02-15 08:19 | DVH ---
INDICATION:VERIFYING CHEST TUBE INSERTION TECHNIQUE: Single frontal view of the chest was obtained COMPARISON: XY CHEST XRAY 1 VIEW on DOS: 02/14/25 FINDINGS: Lines and Tubes: Left-sided chest tube in place with the tip left base near the diaphragm. Lungs: No focal consolidation. Pleura: No effusion. No pneumothorax. Cardiomediastinal contours: Unremarkable Bones: No acute osseous abnormality. IMPRESSION: 1. No acute cardiopulmonary disease. 2. Left-sided chest tube in place with the tip at the left diaphragm.
--- NOTE | 2025-02-15 08:40 | DVHDS2 ---
Discharge Summary Date of Admission Feb 07, 2025 at 16:48 Date of Discharge: Feb 15, 2025 Admitting Diagnosis Generalized Weakness Labs/Diagnostic Data: Laboratory Results Test 02/15/25 05:58 02/15/25 05:32 02/14/25 20:36 02/13/25 19:00 POC Glucose 207 mg/dl (70-106) White Blood Count 6.6 10^3/uL (4.4-10.8) Red Blood Count 3.98 10^6/uL (4.5-5.90) Hemoglobin 11.8 g/dL (13.5-17.5) Hematocrit 34.5 % (41.0-53.0) Mean Corpuscular Volume 86.7 fL (80.0-100.0) Mean Corpuscular Hemoglobin 29.6 pg (28.0-32.0) Mean Corpuscular Hemoglobin Concent 34.2 g/dL (32.0-36.0) Red Cell Distribution Width 16.5 % (11.8-14.3) Platelet Count 483 10^3/uL (140-450) Mean Platelet Volume 6.9 fL (6.9-10.8) Neutrophils (%) (Auto) 50.6 % (37.0-80.0) Lymphocytes (%) (Auto) 25.9 % (10.0-50.0) Monocytes (%) (Auto) 16.6 % (0.0-12.0) Eosinophils (%) (Auto) 6.7 % (0.0-7.0) Basophils (%) (Auto) 0.2 % (0.0-2.0) Neutrophils # (Auto) 3.3 10 ^3/uL (1.6-8.6) Lymphocytes # (Auto) 1.7 10 ^3/uL (0.4-5.4) Monocytes # (Auto) 1.1 10 ^3/uL (0-1.3) Eosinophils # (Auto) 0.4 10 ^3/uL (0-0.8) Basophils # (Auto) 0 10 ^3/uL (0-0.2) Nucleated Red Blood Cells 0.0 % Sodium Level 139 mmol/L (136-145) Potassium Level 4.2 mmol/L (3.5-5.1) Chloride Level 97 mmol/L (98-107) Carbon Dioxide Level 32 mmol/L (20-31) Anion Gap 10 (5-15) Blood Urea Nitrogen 24 mg/dL (9-23) Creatinine 1.61 mg/dL (0.700-1.30) Glomerular Filtration Rate Calc 45 mL/min (>90) BUN/Creatinine Ratio 14.9 (10.0-20.0) Serum Glucose 173 mg/dL (74-106) Calcium Level 9.2 mg/dL (8.7-10.4) Random Vancomycin Level 24.6 ug/mL (5-10) Magnesium Level 2.0 mg/dL (1.6-2.6) Body Fluid Source Pleural fluid Body Fluid pH 8.0 Body Fluid WBC (Manual) 996 CUMM (0-200) Body Fluid RBC (Manual) 43110 CUMM (0-2000) Body Fluid Mononuclear Cells 75 % Body Fluid Polymorphonuclear Cells 25 % (0-25) Test 02/13/25 10:27 02/12/25 13:47 02/11/25 11:27 02/09/25 17:31 Phosphorus Level 3.1 mg/dL (2.4-5.1) Total Bilirubin 0.6 mg/dL (0.2-1.0) Aspartate Amino Transferase (AST) 34 U/L (13-40) Alanine Aminotransferase (ALT) 51 U/L (7-40) Alkaline Phosphatase 125 U/L (46-116) Total Protein 5.8 g/dL (5.7-8.2) Albumin 3.6 g/dL (3.2-4.8) Thyroid Stimulating Hormone (TSH) 2.06 uIU/mL (0.55-4.78) Prothrombin Time 12.0 sec (9.3-11.8) Prothrombin Time INR 1.15 (0.9-1.15) Test 02/07/25 20:00 02/07/25 17:33 02/07/25 14:11 Urine Color Light-yellow (Yellow) Urine Clarity Clear (Clear) Urine pH 5.5 (5.0-9.0) Urine Specific [place] 1.008 (1.001-1.035) Urine Protein Negative (Negative) Urine Ketones Negative (Negative) Urine Blood Negative /uL (Negative) Urine Nitrite Negative (Negative) Urine Bilirubin Negative (Negative) Urine Urobilinogen Normal mg/dL (Negative) Urine Leukocyte Esterase Trace /uL (Negative) Urine RBC 1 /hpf (0 - 3) Urine Microscopic WBC /HPF (0-3) Urine Squamous Epithelial Cells None seen /hpf (<5) Urine Uric Acid Crystals Few /hpf (None Seen) Urine Amorphous Crystals Few /hpf (None Seen) Urine Bacteria None seen /hpf (None Seen) Urine Glucose Normal mg/dL (Normal) Platelet Estimate Decreased Anisocytosis (manual) Moderate Troponin I High Sensitivity 30 ng/L (</=54) Lactic Acid Level 1.0 mmol/L (0.4-2.0) B-Type Natriuretic Peptide 390.57 pg/mL (0-100) Other Laboratory Tests 02/15/25 05:32 Brief Hx & Hospital Course: History of Present Illness The patient is a 70-year-old male with past medical history of chronic kidney failure, hypertension, [place], CVA, diabetes mellitus, hypertension, and CABG 2 weeks ago at [facility] presented to [facility] ED with complaint of generalized weakness. Home health nurse and family reported to EMS that since patient arrived back from [facility] today after having open heart surgery, he has been becoming progressively weaker associated with altered mental status, bilateral lower extremity and scrotum swelling, getting worse that prompted this visit. Patient was seen and evaluated in the ED, laboratory data shows CBC results pending, sodium 131, potassium 4.8, BUN 38, creatinine 1.39, glucose 59, calcium 8.3, BNP 390.57, protein 5.6, troponin 33, AST 54, ALT 88, alkaline phos 174, blood pressure 149/71, heart rate 58, temperature low-grade fever 99.9 F, O2 saturation 96% on oxygen. Chest x-ray revealing cardiomegaly and interval postoperative change of the had, interstitial prominence suggestive of mild CHF, left basilar infiltrate and effusion likely due to postoperative changes, less likely developing pneumonia. Please see medication orders section in the computer. On my assessment, patient denies chest pain at this moment, no dizziness, no diaphoresis, no headache, currently on oxygen, no nausea, no vomiting, no chills. Patient was admitted for further evaluation and medical management. Course of hospitalization: Patient presented with gross fluid overload for which the patient was started on diuretics. CT scan of the chest reveals questionable mediastinal abscess. Patient had no elevation in white blood cell count. Patient afebrile. Infectious Disease consultation was placed. Patient had worsening respiratory status with pleural effusion to left lung. IR consultation was placed with a small bore mediastinal drain placed on 02/10/2025. Drain was removed yesterday after I assessed him to be dislodged. Pulmonology consultation was also obtained for which the patient had thoracentesis with a approximately [address] scan shows large left pleural effusion with atelectasis. After care of the patient was endorsed to me yesterday, consultation was placed with patient's Cardiothoracic surgeon at [facility], Dr. Piper, assist with placing large bore chest as well as assistance with management of his patient given patient had recent CT surgery. Given patient's clinical presentation discussion was made with the patient and daughter yesterday evening, with the ER physician being gracious enough to place large bore chest tube. Today, the left lung has now re-expanded. No signs of pneumothorax. Approximately 400 mL of serosanguineous fluid is noted. Discussion with patient and daughter regarding transferred back to [facility] for continuity of care on her CT surgeon was made, for which they are agreeable to have the patient transferred. It was discussed with the patient's daughter, Guera that her wishes for the patient to be [facility] we will still be in the plan of care. Patient is stable to transfer to telemetry floor. Physical examination General: Alert and Oriented x3. No acute distress. Well-nourished. Eyes: EOMI. Anicteric. HENT: Moist mucous membranes. Lungs: Clear to auscultation bilaterally. No accessory muscle use. Cardiovascular: Regular rate and rhythm. No murmur. No JVD. Abdomen: Soft, non-tender and non-distended. No palpable masses. Extremities: No edema. Non-tender. Skin: No rashes or lesions. Warm. Neurologic: No focal neurological deficits. CN II-XII grossly intact, but not individually tested. Psychiatric: Cooperative. Appropriate mood and affect. Total time spent with patient discussing and formulating plan of care: 35 minutes. This medical document was created using an electronic medical record system with Anita Margarita dictation system. Although this document has been carefully reviewed, there may still be some phonetic and typographical errors. These areas are purely typographical due to imperfections of the software programs, and do not reflect any compromise in the patient's medical care. Consults/Reason for consult Infectious disease: Questionable mediastinal abscess Pulmonology: Respiratory failure with left pleural effusion Interventional Radiology: Placement of mediastinal drain Cardiology: Status post CABG Operations or Procedures Mediastinal drain Chest tube placement Condition at Discharge: Guarded Final Diagnosis/Problems List Acute decompensated systolic and diastolic heart failure Secondary diagnosis: -acute hypoxic respiratory failure -rule out mediastinal abscess -left lung atelectasis with worsening pleural effusion despite thoracentesis -coronary artery disease with recent CABG -? UTI -acute kidney injury,? Vasomotor nephropathy -diabetes mellitus Discharge Disposition: Acute Care Facility Discharge Instruct/Medications Diet: Consistent carbohydrate, Cardiac 2g Na,low cholest (2 gm sodium, low cholesterol) Follow Up/Referral: Per accepting provider Medications: Refer to medication reconciliation form Scheduled Amlodipine Besylate (Amlodipine Besylate), 1 TAB PO QAM, (Reported) Aspirin (Aspirin Low Dose), 1 TAB PO DAILY, (Reported) Atorvastatin Calcium (Lipitor), 1 TAB PO HS, (Reported) Cholecalciferol (Vitamin D3), 1 CAP PO DAILY, (Reported) Ferrous Sulfate Dried (Iron High Potency), 1 TAB PO BID, (Reported) Gabapentin (Gabapentin), 1 CAP PO HS, (Reported) Glimepiride (Glimepiride), 1 TAB PO BID, (Reported) Insulin Glargine (Lantus Solostar), 20 UNIT SC QAM, (Reported) Insulin Glargine (Lantus Solostar), 30 UNIT SC QPM, (Reported) Losartan Potassium (Losartan Potassium), 1 TAB PO QAM, (Reported) Metformin Hydrochloride (Metformin Hcl), 1 TAB PO BIDWM, (Reported) Discontinued Medications Acetaminophen (Tylenol Extra Strength), 1 TAB PO DAILY PRN for MODERATE PAIN (4- 6 PAIN SCALE), (Reported) Metoprolol Tartrate (Metoprolol Tartrate), 1 TAB PO BID, (Reported) 36 Discharge Statement: "Patient was advised to return to the ER or call 911 if any headaches, dizziness, shortness of breath, chest pain, abdominal pain, bleeding, fevers, or worsening of medical condition. Patient was counseled about treatment plan, medications, possible side effects, patientverbalized understanding. All questions were answered to the best of my ability. This discharge took greater then 30 minutes in planning, reviewing documentation, counseling the patient, and discussing with other team members." ASSESSMENT ASSESSMENT Assessment Date of Service: Feb 15, 2025 Billing Provider: CRISTIAN BUTT NP Common Visit Codes: 22282-ZFE/OBS DISCH DAY >30min CRISTIAN BUTT NP Feb 15, 2025 08:40
[2025-02-15 14:07] LABS: Glucose, Body Fluid 235.0 mg/dL (.); LD, Body Fluid 281.0 IU/L (.)
[2025-02-15] MEDS ORDERED: LABETALOL HCL 20 MG/4 ML VL IV PRN (14:30)
--- NOTE | 2025-02-15 17:28 | DVHPN2 ---
Progress Note - Dictate Date Seen: Feb 15, 2025 Medical Necessity Reason Pt with a Central, PICC or Fol: No vital signs Vital Sign Date Time Temp Pulse Resp B/P (MAP) Pulse Ox O2 Delivery O2 Flow Rate FiO2 02/15/25 16:00 85 13 150/72 (98) 94 02/15/25 14:53 98.5 02/15/25 08:00 Nasal Cannula* 2 28 Total Intake and Output 02/14/25 02/14/25 02/15/25 15:00 23:00 07:00 Intake Total 50 ml 1400 ml 200 ml Output Total 1695 ml 250 ml Balance 50 ml -295 ml -50 ml medications Current Medications Medications Dose Ordered Sig/Ankur Route Start Time Stop Time Status Last Admin Dose Admin Aspirin 81 mg DAILY PO 02/08/25 10:00 02/15/25 09:22 81 MG Atorvastatin Calcium 20 mg HS PO 02/07/25 22:00 02/14/25 22:04 20 MG Metoprolol Tartrate 25 mg BID PO 02/07/25 22:00 02/15/25 09:22 25 MG Sodium Chloride 10 ml Q8HR IV 02/07/25 22:00 02/15/25 13:42 10 ML Acetaminophen/ Hydrocodone Bitart 1 tab Q4HP PRN PO 02/07/25 15:30 02/15/25 09:21 1 TAB Ondansetron HCl 4 mg Q4HP PRN IV 02/07/25 15:30 02/07/25 21:03 4 MG Docusate Sodium 100 mg BIDPRN PRN PO 02/07/25 15:30 02/15/25 09:22 100 MG Acetaminophen 650 mg Q6HP PRN PO 02/07/25 15:30 Nitroglycerin 0.4 mg Q5MINP PRN SL 02/07/25 17:00 Morphine Sulfate 2 mg Q30M PRN IV 02/07/25 17:00 02/07/25 21:04 2 MG Furosemide 40 mg BIDD IV 02/08/25 18:00 02/15/25 06:03 40 MG Diagnostic Test (Pha) 1 strip ACHS 02/09/25 17:00 02/15/25 12:01 1 STRIP Insulin Human Regular HS SC 02/09/25 22:00 02/14/25 22:02 4 UNITS Insulin Human Regular AC SC 02/09/25 17:00 02/15/25 12:09 6 UNITS Dextrose 50 ml UD PRN IV 02/09/25 13:00 Heparin Sodium (Porcine) 5,000 units Q12HR SC 02/09/25 22:00 02/15/25 09:23 5,000 UNITS Insulin Glargine 20 units QAM SC 02/10/25 07:00 02/15/25 06:54 20 UNITS Ceftriaxone Sodium/Dextrose 50 ml @ 50 mls/hr DAILY IV 02/14/25 10:00 02/15/25 09:22 50 MLS/HR Labetalol HCl 10 mg Q2HPRN PRN IV 02/15/25 14:30 laboratory and microbiology Laboratory Tests 02/15/25 05:32 Test 02/15/25 05:32 Range/Units Serum Glucose 173 H 74-106 mg/dL Assessment/Plan Impression Acute hypoxemic respiratory failure Pleural effusions Atelectasis Dyspnea Patient seen and examined Events Low oxygen requirements On 2 liters nasal cannula No acute events S/p thoracentesis Labs and imaging reviewed Management Supplemental oxygen Titrate to maintain sats 90% or above Incentive spirometry Continue antibiotics F/u cultures Bronchodilators Monitor renal function Monitor electrolytes Supplement as needed DVT prophylaxis Dietary Evaluation Review Comments: Nutrition Recommendation 1) Gordon 1 pk BID 2) Consider CCHO 60gm + cardiac diet 3) Monitor PO intake, lab values, weight trend, and I/O Expected Outcomes/Goals: Wound to improve Lab values to improve Fu 2-3 days Plan discussed with: Patient KIT RUBIO MD Feb 15, 2025 17:28
--- NOTE | 2025-02-15 23:17 | DVHPN2 ---
Progress Note - Dictate Date Seen: Feb 15, 2025 Medical Necessity Reason Pt with a Central, PICC or Fol: No Subjective Patient was seen and evaluated in follow up in the [facility]. Overnight, patient's HR was fluctuating between the 40's and 100's showing PVCs with LBBB and triplets. Patient is asymptomatic. Patient is currently in a-fib in the 140's. Chest tube remains in place. Patient is being transferred to [facility]. vital signs Vital Sign Date Time Temp Pulse Resp B/P (MAP) Pulse Ox O2 Delivery O2 Flow Rate FiO2 02/15/25 10:30 87 17 137/60 (85) 94 02/15/25 09:00 98.7 98.7 02/15/25 08:00 Nasal Cannula* 2 28 Total Intake and Output 02/14/25 02/14/25 02/15/25 15:00 23:00 07:00 Intake Total 50 ml 1400 ml 200 ml Output Total 1695 ml 250 ml Balance 50 ml -295 ml -50 ml medications Current Medications Medications Dose Ordered Sig/Ankur Route Start Time Stop Time Status Last Admin Dose Admin Aspirin 81 mg DAILY PO 02/08/25 10:00 02/15/25 09:22 81 MG Atorvastatin Calcium 20 mg HS PO 02/07/25 22:00 02/14/25 22:04 20 MG Metoprolol Tartrate 25 mg BID PO 02/07/25 22:00 02/15/25 09:22 25 MG Sodium Chloride 10 ml Q8HR IV 02/07/25 22:00 02/15/25 13:42 10 ML Acetaminophen/ Hydrocodone Bitart 1 tab Q4HP PRN PO 02/07/25 15:30 02/15/25 09:21 1 TAB Ondansetron HCl 4 mg Q4HP PRN IV 02/07/25 15:30 02/07/25 21:03 4 MG Docusate Sodium 100 mg BIDPRN PRN PO 02/07/25 15:30 02/15/25 09:22 100 MG Acetaminophen 650 mg Q6HP PRN PO 02/07/25 15:30 Nitroglycerin 0.4 mg Q5MINP PRN SL 02/07/25 17:00 Morphine Sulfate 2 mg Q30M PRN IV 02/07/25 17:00 02/07/25 21:04 2 MG Furosemide 40 mg BIDD IV 02/08/25 18:00 02/15/25 06:03 40 MG Diagnostic Test (Pha) 1 strip ACHS 02/09/25 17:00 02/15/25 12:01 1 STRIP Insulin Human Regular HS SC 02/09/25 22:00 02/14/25 22:02 4 UNITS Insulin Human Regular AC SC 02/09/25 17:00 02/15/25 12:09 6 UNITS Dextrose 50 ml UD PRN IV 02/09/25 13:00 Heparin Sodium (Porcine) 5,000 units Q12HR SC 02/09/25 22:00 02/15/25 09:23 5,000 UNITS Insulin Glargine 20 units QAM SC 02/10/25 07:00 02/15/25 06:54 20 UNITS Ceftriaxone Sodium/Dextrose 50 ml @ 50 mls/hr DAILY IV 02/14/25 10:00 02/15/25 09:22 50 MLS/HR Labetalol HCl 10 mg Q2HPRN PRN IV 02/15/25 14:30 objective GENERAL: Alert and oriented x 3. No acute distress. EYES: PERRL, EOMI. Anicteric. HENT: Moist mucous membranes. LUNGS: Decreased breath sounds. CARDIOVASCULAR: Regular rate and rhythm. ABDOMEN: Soft, non-tender and non-distended. EXTREMITIES: No edema. NEUROLOGIC: No focal neurological deficits. SKIN: Multiple opened wounds to bilateral lower extremities. Healing vertical scar to midline chest. Pigtail drain to upper anterior chest. laboratory and microbiology Laboratory Tests 02/15/25 05:32 Test 02/15/25 05:32 Range/Units Serum Glucose 173 H 74-106 mg/dL Problem List Coronary artery disease status post triple-vessel CABG on 01/16/25. Fluid collection in anterior mediastinum. Acute on chronic HFpEF, NYHA class III. Hypertension. Dyslipidemia. Acute left 1st and 2nd rib fracture (per chest CT). Pulmonary hypertension, moderate degree. Insulin-dependent Type 2 diabetes mellitus. History of CVA without residual deficit. Obesity. Hemothorax. Assessment/Plan Continued all current supportive medical care. Tylenol and Elizabeth for pain management. Aspirin,Metoprolol. IV antibiotics as ordered. Diuretics with Lasix. IV Labetalol for SBP > 150. Additional plan as per the hospital course. Critical care time of 45 minutes provided to include time spent evaluation of patient at bedside, when appropriate patient/family education for diagnosis, treatment plan, review of pertinent medical information and discussion of care with specialty providers and PCP Dietary Evaluation Review Comments: Nutrition Recommendation 1) Gordon 1 pk BID 2) Consider CCHO 60gm + cardiac diet 3) Monitor PO intake, lab values, weight trend, and I/O Expected Outcomes/Goals: Wound to improve Lab values to improve Fu 2-3 days Plan discussed with: Patient SISSY CABRAL MD Feb 15, 2025 14:38
--- NOTE | 2025-02-16 11:07 | ECG ---
[facility] Test Date: 2025-02-15 Test Time: 08:43:40 Pat Name: CURTIS PASCUAL Department: Respiratoy Room: [address] [place] [address] Gender: M Watcher [employer]: : 1955 Requested By: IRA VALENTE Order Number: [id number] Reading MD: Measurements Intervals [place] Rate: 98 P: 42 NV: 121 QRS: 60 QRSD: 145 T: 223 QT: 357 QTc: 456 Interpretive Statements Sinus rhythm IVCD, consider atypical LBBB Please click the below link to view image of tracing.
--- NOTE | 2025-02-16 11:25 | ECG ---
[facility] Test Date: 2025-02-14 Test Time: 20:09:19 Pat Name: CURTIS PASCUAL Department: Respiratoy Room: [address] [place] [address] Gender: M Roll Hand: : 1955 Requested By: CAMI DASILVA Order Number: [id number] Reading MD: Measurements Intervals [place] Rate: 76 P: 54 OH: 129 QRS: 81 QRSD: 148 T: 241 QT: 408 QTc: 459 Interpretive Statements Sinus rhythm Atrial premature complex Sinus pause Left bundle branch block Please click the below link to view image of tracing.
--- NOTE | 2025-02-16 14:00 | ECG ---
[facility] Test Date: 2025-02-08 Test Time: 21:49:37 Pat Name: CURTIS PASCUAL Department: ED Room: [address] [place] [address] Gender: M [employer] Operator: JANET : 1955 Requested By: CAMI DASILVA Order Number: [id number] Reading MD: Measurements Intervals [place] Rate: 131 P: 0 MA: 0 QRS: 80 QRSD: 138 T: 259 QT: 321 QTc: 474 Interpretive Statements Atrial flutter with predominant 2:1 AV block Left bundle branch block Please click the below link to view image of tracing.
--- NOTE | 2025-02-16 21:16 | DVHPN2 ---
Consult Progress Note Objective vital signs Vital Sign Date Time Temp Pulse Resp B/P (MAP) Pulse Ox O2 Delivery O2 Flow Rate FiO2 02/15/25 16:00 85 13 150/72 (98) 94 02/15/25 14:53 98.5 02/15/25 08:00 Nasal Cannula* 2 28 Total Intake and Output 02/15/25 02/15/25 02/16/25 15:00 23:00 07:00 Intake Total 50 ml Balance 50 ml laboratory and microbiology Laboratory Tests 02/15/25 05:32 Test 02/15/25 05:32 Range/Units Serum Glucose 173 H 74-106 mg/dL Dietary Evaluation Review Comments: Nutrition Recommendation 1) Gordon 1 pk BID 2) Consider CCHO 60gm + cardiac diet 3) Monitor PO intake, lab values, weight trend, and I/O Expected Outcomes/Goals: Wound to improve Lab values to improve Fu 2-3 days GUADALUPE MORELAND MD Feb 16, 2025 21:16
== END 2025-02-15 16:30 | disposition short-term general hospital (02) | DRG 291 ==
LOC: ER 13:08 → EDBD 13:08 → DOU 16:48 → OVERFLOW 02-08 00:04 → TELE-WESTW 02-09 16:05 → DOU IN ICU 02-14 17:20 → DOU 02-14 17:21
PROVIDERS: ADMIT Nurse Practitioner Acute Care; ATTEND Nurse Practitioner Acute Care
PROC: 0W9C30Z Drainage of Mediastinum with Drainage Device, Percutaneous Approach (ICD-10-PCS; principal; 2025-02-10)
PROC: 0W9B3ZZ Drainage of Left Pleural Cavity, Percutaneous Approach (ICD-10-PCS; 2025-02-13)
PROC: 0W9B30Z Drainage of Left Pleural Cavity with Drainage Device, Percutaneous Approach (ICD-10-PCS; 2025-02-13)
DX: I13.0 Hypertensive heart and chronic kidney disease with heart failure and stage 1 through stage 4 chronic kidney disease, or unspecified chronic kidney disease (principal); I50.43 Acute on chronic combined systolic (congestive) and diastolic (congestive) heart failure; J85.3 Abscess of mediastinum; J96.01 Acute respiratory failure with hypoxia; N17.0 Acute kidney failure with tubular necrosis; N39.0 Urinary tract infection, site not specified; J94.2 Hemothorax; J98.11 Atelectasis; S22.42XA Multiple fractures of ribs, left side, initial encounter for closed fracture; J91.8 Pleural effusion in other conditions classified elsewhere; E11.649 Type 2 diabetes mellitus with hypoglycemia without coma; E87.8 Other disorders of electrolyte and fluid balance, not elsewhere classified; I25.10 Atherosclerotic heart disease of native coronary artery without angina pectoris; I27.20 Pulmonary hypertension, unspecified; E78.5 Hyperlipidemia, unspecified; D64.9 Anemia, unspecified; N18.9 Chronic kidney disease, unspecified; X58.XXXA Exposure to other specified factors, initial encounter; E11.22 Type 2 diabetes mellitus with diabetic chronic kidney disease; E66.9 Obesity, unspecified; I49.3 Ventricular premature depolarization; I49.9 Cardiac arrhythmia, unspecified; N50.89 Other specified disorders of the male genital organs; B95.2 Enterococcus as the cause of diseases classified elsewhere; Z68.30 Body mass index [BMI] 30.0-30.9, adult; Z86.73 Personal history of transient ischemic attack (TIA), and cerebral infarction without residual deficits; I25.2 Old myocardial infarction; Z95.1 Presence of aortocoronary bypass graft; Z83.3 Family history of diabetes mellitus; Z79.4 Long term (current) use of insulin; Z79.84 Long term (current) use of oral hypoglycemic drugs; Z79.899 Other long term (current) drug therapy; Y93.89 Activity, other specified; Y92.89 Other specified places as the place of occurrence of the external cause; Y99.8 Other external cause status
CPT/HCPCS: 10005; 32551; 32555; 36415; 71045; 71250; 77012; 80048; 80053; 80202; 81001; 82962; 83605; 83735; 83880; 83986; 84100; 84443; 84484; 85025; 85610; 86850; 86900; 86901; 87070; 87081; 87205; 89051; 93005; 93306; 93970; 97110; 97116; 97163; 97530; C1729; G0378; J1815; J2003; J2405; J2543

== ENCOUNTER 2025-04-20 18:34 | Inpatient (IN) | payer OTHER, MEDICAID ==
[~2025-04-20] VITALS: Ht 172.7 cm; Wt 78.1 kg
[~2025-04-20 18:34] MED LIST changes: -ACET-1304 PO; -METO25TA5 PO
[2025-04-20 19:31] LABS: Hematocrit 35.3 % (41.0-53.0); Hemoglobin 11.7 g/dL (13.5-17.5); Mean Corpuscular Hemoglobin 28.1 pg (28.0-32.0); Mean Corpuscular Volume 85.0 fL (80.0-100.0); Nucleated Red Blood Cells % 0.0 %
[2025-04-20 19:48] LABS: Alanine Aminotransferase 18 U/L (7-40); Albumin 4.5 g/dL (3.2-4.8); Alkaline Phosphatase 115 U/L (46-116); Anion Gap 10 (5-15); BUN/Creatinine Ratio 14.6 (10.0-20.0); Bilirubin, Total 0.5 mg/dL (0.2-1.0); Blood Urea Nitrogen 23 mg/dL (9-23); Calcium 9.6 mg/dL (8.7-10.4); Carbon Dioxide 28 mmol/L (20-31); Chloride 97 mmol/L (98-107); Glucose 167 mg/dL (74-106); Lipase 46 U/L (12-53); Potassium 4.9 mmol/L (3.5-5.1); Sodium 135 mmol/L (136-145); Total Protein 7.8 g/dL (5.7-8.2)
[2025-04-20 19:54] LABS: Lactic Acid w/Reflex 2.4 mmol/L (0.4-2.0)
[2025-04-20] MEDS ORDERED: SODIUM CHLORIDE 0.9% 1,000 ML IV ONE (20:00)
--- NOTE | 2025-04-20 20:11 | ED.PDOC ---
Musculoskeletal HPI Comments This patient is a 70-year-old male who appears to be in poor overall health and morbid obesity arrives to the ED today via EMS for evaluation of right medial foot pain concerns. Patient states he has a wound on the pedal aspect of his right 1st MTP that has worsening. Patient states he is a diabetic and that his blood sugar is usually well controlled. Patient has had a recent history of open heart surgery for what appears to be a CABG procedure. Patient denies any fever nausea or vomiting. Patient's temperature was slightly elevated at arrival as well as low pulse ox and mildly elevated blood pressure. 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 Allergies: Coded Allergies: NO KNOWN ALLERGIES (Unverified , 11/10/24) Home Meds Reported Medications Metformin Hydrochloride (Metformin Hcl) 1,000 Mg Tab, 1 TAB PO BIDWM for DIABETES TAKE WITH MORNING AND EVENING MEALS 01/09/25 Insulin Glargine (Lantus Solostar) 100 Unit/Ml Inj, 30 UNIT SC QPM for DIABETES 01/09/25 Gabapentin (Gabapentin) 100 Mg Cap, 1 CAP PO HS for NEUROPATHY 01/09/25 Ferrous Sulfate Dried (Iron High Potency) 65 Mg Tab, 1 TAB PO BID for SUPPLEMENT 01/09/25 Cholecalciferol (Vitamin D3) 1,000 Unit Cap, 1 CAP PO DAILY for SUPPLEMENT 01/09/25 Amlodipine Besylate (Amlodipine Besylate) 10 Mg Tab, 1 TAB PO QAM for HYPERTENSION 01/09/25 Aspirin (Aspirin Low Dose) 81 Mg Chw, 1 TAB PO DAILY for HEART ATTACK PREVENTION 10/15/23 Insulin Glargine (Lantus Solostar) 100 Unit/Ml Inj, 20 UNIT SC QAM for DIABETES 10/15/23 Atorvastatin Calcium (Lipitor) 40 Mg Tab, 1 TAB PO HS for HIGH CHOLESTEROL 10/15/23 Losartan Potassium (Losartan Potassium) 100 Mg Tab, 1 TAB PO QAM for HYPERTENSION 10/15/23 Glimepiride (Glimepiride) 4 Mg Tab, 1 TAB PO BID for DIABETES 10/15/23 Information Source: Patient, Emergency Med Personnel Mode of Arrival: EMS Location: Right Extremity Location: Foot Timing: Days Prehospital treatment: Treatment Severity: Moderate Able to Move Extremity: Yes Bear Weight: Limited Pain: Moderate Hand Dominance: Right Mechanism: Spontaneous Circumstances: Spontaneous Onset of Symptoms: Spontaneous Symptoms: Swelling, Pain DVT Risk Factors: NONE Past Medical History PAST MEDICAL HISTORY: CKF, DM, High Lipids, HTN, UTI'S Surgical History: Denies all surgeries Family History Family History: Reviewed,noncontributory to illness Social History Smoker: Non-Smoker Alcohol: Denies ETOH Use Drugs: Denies Drug Use Lives In: Home Constitutional: denies: chills, diaphoresis, fatigue, fever, malaise, sweats, weakness, others EENTM: denies: blurred vision, double vision, ear bleeding, ear discharge, ear drainage, ear pain, ear ringing, eye pain, eye redness, hearing loss, mouth pain, mouth swelling, nasal discharge, nose bleeding, nose congestion, nose pain, photophobia, tearing, throat pain, throat swelling, voice changes, others Respiratory: denies: cough, hemoptysis, orthopnea, SOB at rest, shortness of breath, SOB with excertion, stridor, wheezing, others Cardiovascular: denies: chest pain, dizzy spells, diaphoresis, Dyspnea on exertion, edema, irregular heart beat, left arm pain, lightheadedness, palpitations, PND, syncope, others Gastrointestinal: denies: abdomen distended, abdominal pain, blood streaked bowels, constipated, diarrhea, dysphagia, difficulty swallowing, hematemesis, melena, nausea, poor appetite, poor fluid intake, rectal bleeding, rectal pain, vomiting, others Genitourinary: denies: burning, dysuria, flank pain, frequency, hematuria, incontinence, penile discharge, penile sore, pain, testicle pain, testicle swelling, urgency, others Neurological: denies: dizziness, fainting, headache, left sided numbness, left sided weakness, numbness, paresthesia, pre-existing deficit, right sided numbness, right sided weakness, seizure, speech problems, tingling, tremors, weakness, others Musculoskeletal: reports: others (Right foot pain); denies: back pain, gout, joint pain, joint swelling, muscle pain, muscle stiffness, neck pain Integumetry: denies: bruises, change in color, change in hair/nails, dryness, laceration, lesions, lumps, rash, wounds, others Allergic/Immunocompromised: denies: Difficulty Healing, Frequent Infections, Hives, Itching, others Hematologic/Lymphatic: denies: anemia, blood clots, easy bleeding, easy bruising, swollen glands, others Endocrine: denies: excessive hunger, excessive sweating, excessive thirst, excessive urination, flushing, intolerance to cold, intolerance to heat, unexplained weight gain, unexplained weight loss, others Psychiatric: denies: anxiety, bipolar disorder, depression, hopeless, panic disorder, schizophrenia, sleepless, suicidal, others Physical Exam General Appearance: Moderate Distress ([id number] distress due to right foot pain concerns.), Obese HEENT: Normal ENT Inspection, Pharynx Normal, TMs Normal Neck: Full Range of Motion, Non-Tender, Normal, Normal Inspection Respiratory: Chest Non-Tender, Lungs Clear, No Accessory Muscle Use, Normal Breath Sounds Cardiovascular: No Edema, Normal Peripheral Pulses, Regular Rate/Rhythm Breast Exam: Deferred Gastrointestinal: No Organomegaly, Non Tender, No Pulsatile Mass, Normal Bowel Sounds, Soft Genitalia: Deferred Pelvic: Deferred Rectal: Deferred Extremities: Other (Patient has a large eschar at the 1st MTP of the right foot on the pedal aspect. Wound appears to be penetrating. Probable osteomyelitis. Localized erythema and edema with weepage.) Neurologic: Alert Cerebellar Function: NOT DONE Reflexes: NOT DONE Skin: Dry, Normal Color, Warm Lymphatic: No Adenopathy Was a procedure done? Was a procedure done?: No Differential Diagnosis EXT Differential Diagnosis: Other (Osteomyelitis, cellulitis, sepsis, electrolyte abnormality, foot infection, diabetic foot) X-Ray, Labs, Meds, VS Vital Signs Date Time Temp Pulse Resp B/P (MAP) Pulse Ox O2 Delivery O2 Flow Rate FiO2 04/20/25 18:34 99.5 85 18 144/74 90 99.5 Lab Test 04/20/25 19:19 Range/Units White Blood Count 19.1 H 4.4-10.8 10^3/uL Red Blood Count 4.16 L 4.5-5.90 10^6/uL Hemoglobin 11.7 L 13.5-17.5 g/dL Hematocrit 35.3 L 41.0-53.0 % Mean Corpuscular Volume 85.0 80.0-100.0 fL Mean Corpuscular Hemoglobin 28.1 28.0-32.0 pg Mean Corpuscular Hemoglobin Concent 33.1 32.0-36.0 g/dL Red Cell Distribution Width 16.1 H 11.8-14.3 % Platelet Count 248 140-450 10^3/uL Mean Platelet Volume 7.7 6.9-10.8 fL Neutrophils (%) (Auto) 81.9 H 37.0-80.0 % Lymphocytes (%) (Auto) 10.8 10.0-50.0 % Monocytes (%) (Auto) 6.6 0.0-12.0 % Eosinophils (%) (Auto) 0.3 0.0-7.0 % Basophils (%) (Auto) 0.4 0.0-2.0 % Neutrophils # (Auto) 15.6 H 1.6-8.6 10 ^3/uL Lymphocytes # (Auto) 2.1 0.4-5.4 10 ^3/uL Monocytes # (Auto) 1.3 0-1.3 10 ^3/uL Eosinophils # (Auto) 0.1 0-0.8 10 ^3/uL Basophils # (Auto) 0.1 0-0.2 10 ^3/uL Nucleated Red Blood Cells 0.0 % Sodium Level 135 L 136-145 mmol/L Potassium Level 4.9 3.5-5.1 mmol/L Chloride Level 97 L 98-107 mmol/L Carbon Dioxide Level 28 20-31 mmol/L Anion Gap 10 5-15 Blood Urea Nitrogen 23 9-23 mg/dL Creatinine 1.57 H 0.700-1.30 mg/dL Glomerular Filtration Rate Calc 47 >90 mL/min BUN/Creatinine Ratio 14.6 10.0-20.0 Serum Glucose 167 H 74-106 mg/dL Lactic Acid Level 2.4 *H 0.4-2.0 mmol/L Calcium Level 9.6 8.7-10.4 mg/dL Total Bilirubin 0.5 0.2-1.0 mg/dL Aspartate Amino Transferase (AST) 19 13-40 U/L Alanine Aminotransferase (ALT) 18 7-40 U/L Alkaline Phosphatase 115 46-116 U/L Troponin I High Sensitivity < 3 L </=54 ng/L B-Type Natriuretic Peptide 149.96 0-100 pg/mL Total Protein 7.8 5.7-8.2 g/dL Albumin 4.5 3.2-4.8 g/dL Lipase 46 12-53 U/L X-Ray, Labs, Meds, VS Comment All studies performed the ED were evaluated by me personally. Patient had a significant elevation in his white blood cell count as well as some anemia that was noted. Additionally, patient had elevated lactic acid. Sepsis protocol was initiated a although I do not believe the patient is currently septic. Imaging studies were pending, but patient will be admitted irrespective of imaging to address his leukocytosis concerns. Time of 1ST Reevaluation: 20:10 Reevaluation 1ST: Improved Consultation: PCP Patient Education/Counseling: Diagnosis, Treatment Family Education/Counseling: Diagnosis, Treatment Sepsis Sepsis Reasesment Focused Exam Orders: Laboratory Tests 04/20/25 19:19: Lactic Acid Level 2.4 Time recognized/suspected: 19:46 Recent Procedure: Yes On Antibiotic Therapy: No Respiratory Rate >20: No Heart Rate >90: No Temp<36 C (96.8 F) or >38.3 C: No SBP <90 or MAP <65 mmHG: No New Acute Mental Status Change: No Is the patient on CPAP, BIPAP,: No IV fluid given: Yes Departure 1 Departure Time of Disposition: 20:10 Impression: Primary Impression: Diabetic foot Additional Impressions: Leukocytosis Anemia Disposition: ADMITTED INPATIENT Condition: Fair Discharged With: Self Critical Care Note Critical Care Time?: No Stability Stability form required: No Heart Score Heart Score: Heart Score Response (Comments) Value History N/A 0 EKG N/A 0 Age N/A 0 Risk Factors N/A 0 Troponin Normal limit 0 Total 0 TOÑO ACHARYA PAC Apr 20, 2025 20:10
--- NOTE | 2025-04-20 20:24 | DVH ---
EXAM: CT CT R FOOT WO CONTRAST INDICATION: Rule out osteo at 1st MTP TECHNIQUE: Axial images of right foot without contrast have been obtained along with coronal and sagi ttal reformatted images. All CT scans at this facility use dose modulation, iterative reconstruction, and/or weight based dosing when appropriate to reduce radiation dose to as low as reasonably achieva ble. COMPARISON: XY R FOOT 3 VIEW XRAY on DOS: 09/23/23 FINDINGS: BONES: Irregular sclerosis of the medial hallux sesamoid. Minimal opposing possible subchondral cyst ic change centered of the 1st metatarsophalangeal joint. Imaging findings may be degenerative however superimposed osteomyelitis given plantar soft tissue ulceration not excluded. Recommend further sherice luation with MRI with and without contrast. posterior calcaneal tuberosity spurring. Vascular calcifi cations. MUSCLES: No abnormal attenuation. JOINT SPACES: No joint effusion. TENDONS/LIGAMENTS: Intact. OTHER: None. IMPRESSION: 1. Irregular sclerosis of the medial hallux sesamoid. 2. Minimal opposing possible subchondral cystic change centered of the 1st metatarsophalangeal joint. 3. Imaging findings may be degenerative however superimposed osteomyelitis given plantar soft tissue ulceration not excluded. 4. Recommend further evaluation with MRI with and without contrast.
[2025-04-20] MEDS ORDERED: ONDANSETRON HCL 4 MG/2 ML VIAL IV PRN (21:30)
[2025-04-20] MEDS ORDERED: DEXTROSE (50%) 50ML SYRG IV PRN (21:30)
[2025-04-20] MEDS ORDERED: ACETAMINOPHEN 325 MG TAB PO PRN (21:30)
[2025-04-20] MEDS ORDERED: VANCOMYCIN PER PHARMACY 0 MG IV SCH (21:30)
[2025-04-20] MEDS ORDERED: DOCUSATE SOD 100 MG CAP PO PRN (21:30)
[2025-04-20 21:45] VITALS: PULSE 76; RESP 20; O2SAT 95
[2025-04-20] MEDS: HYDROcodone-ACET 5/325MG TAB PO ONE (22:00)
--- NOTE | 2025-04-20 22:28 | DVHHP2 ---
History of Present Illness Reason for Visit: Diabetes with foot ulcer History of Present Illness The patient is a 70-year-old male with past medical history of chronic kidney disease, diabetes mellitus, UTIs, hyperlipidemia, and hypertension who presented to [facility] ED for evaluation of right medial foot ulcer. Martin navarrete's daughter reports that, he was seen by his home health nurse who noticed patient having elevated temperature, worsening foot ulcer, and was instructed to go to the ED for further evaluation. Daughter also states patient had a recent open heart surgery appears to be CABG procedure. Patient was seen and evaluated in the ED, laboratory data shows WBC 19.1, hemoglobin 11.7, hematocrit 35.3, platelets 248, sodium 135, potassium 4.9, BUN 23, creatinine 1.57, glucose 167, lactic acid 2.4 trending down to 1.8, calcium 9.6, lipase 46, troponin < 3, blood pressure 144/74, heart rate 85, temperature 99.5 F, O2 saturation 91% on oxygen. Foot CT showed irregular sclerosis of the medial hallux sesamoid; imaging findings may be degenerative however superimposed osteomyelitis given plantar soft tissue ulceration not excluded. Patient was started on IV antibiotic regimen vancomycin, please see medication orders section in the computer. On my assessment, daughter at bedside, patient denied chest pain, head ache, dizziness, diaphoresis, currently on oxygen, no diarrhea, nausea, vomiting, no chills. Past Medical History CKF, DM, High Lipids, HTN, UTI'S Past Surgical History CABG Family History Reviewed, noncontributory to the management of this case. Past Social History The patient lives at home, denies smoking, alcohol or illicit drugs abuse. Review of Systems Constitutional: Yes: Weakness; No: Fever, Chills, Sweats, Malaise, Other Eyes: No: Pain, Vision change, Conjunctivae inflammation, Eyelid inflammation, Other, Redness ENT: No: Ear pain, Ear discharge, Nose pain, Nose discharge, Nose congestion, Mouth pain, Mouth swelling, Throat pain, Throat swelling, Other Respiratory: No: Cough, Dry, Shortness of breath, SOB with excertion, Wheezing, Hemoptysis, Pleuritic Pain, Sputum, Wheezing, Other Cardiovascular: No: Chest Pain, Palpitations, Orthopnea, Paroxysmal Noc. Dyspnea, Edema, Lt Headedness, Other Gastrointestinal: No: Nausea, Vomiting, Abdominal Pain, Diarrhea, Constipation, Melena, Hematochezia, Other Genitourinary: No Dysuria, No Frequency, No Incontinence, No Hematuria, No Retention, No Other Musculoskeletal: other (Right foot pain); No: neck pain, shoulder pain, arm pain, back pain, hand pain, leg pain, foot pain Skin: No: Rash, Lesions, Jaundice, Bruising, Other Neurological: No: Weakness, Numbness, Incoordination, Change in speech, Confusion, Seizures, Other Allergies: Coded Allergies: NO KNOWN ALLERGIES (Unverified , 11/10/24) Medications Current Medications Medications Dose Ordered Sig/Ankur Route Start Time Stop Time Status Last Admin Dose Admin Vancomycin HCl 0 ml @ 0 mls/hr PER PHARMACY IV 04/20/25 21:30 UNV Piperacillin Sod/ Tazobactam Sod 100 ml @ 25 mls/hr Q8HR IV 04/21/25 06:00 Amlodipine Besylate 10 mg DAILY PO 04/21/25 10:00 Clonidine HCl 0.1 mg Q4HP PRN PO 04/20/25 21:30 Metoprolol Tartrate 25 mg BID PO 04/20/25 22:00 Atorvastatin Calcium 20 mg HS PO 04/20/25 22:00 Gabapentin 100 mg BID PO 04/20/25 22:00 Cholecalciferol 1,000 unit DAILY PO 04/21/25 10:00 Diagnostic Test (Pha) 1 strip ACHS 04/20/25 22:00 Insulin Human Regular HS SC 04/20/25 22:00 Insulin Human Regular AC SC 04/21/25 07:00 Dextrose 50 ml UD PRN IV 04/20/25 21:30 Sodium Chloride 1,000 ml @ 60 mls/hr [id number] IV 04/20/25 21:30 Acetaminophen/ Hydrocodone Bitart 1 tab Q4HP PRN PO 04/20/25 21:30 Ondansetron HCl 4 mg Q4HP PRN IV 04/20/25 21:30 Docusate Sodium 100 mg BIDPRN PRN PO 04/20/25 21:30 Acetaminophen 650 mg Q6HP PRN PO 04/20/25 21:30 Aspirin 81 mg DAILY PO 04/21/25 10:00 Exam Vital Signs Vital Signs Date Time Temp Pulse Resp B/P (MAP) Pulse Ox O2 Delivery O2 Flow Rate FiO2 04/20/25 21:45 97.5 76 20 149/61 (90 95 97.5 General Appearance: Alert, Oriented X3, Cooperative, No acute distress HEENT: Atraumatic, PERRLA, EOMI, Mucous membr. moist/pink Respiratory: Normal air movement Cardiovascular: Regular rate, Normal S1, Normal S2, No murmurs Abdominal: Normal bowel sounds, Soft, No tenderness, No hepatospenomegaly, No masses Extremities: No clubbing, No cyanosis, No edema, Normal pulses, No tenderness/swelling Skin: No rashes, No breakdown, No significant lesion Neuro: Normal speech, Normal tone, Sensation intact, Cranial nerves 3-12 NL, Reflexes 2+, Other (Generalized weakness) Psych/Mental Status: Mental status NL, Mood NL Labs/Xrays Labs Test 04/20/25 20:35 04/20/25 19:19 Range/Units Lactic Acid Level 1.8 0.4-2.0 mmol/L Troponin I High Sensitivity < 3 L </=54 ng/L White Blood Count 19.1 H 4.4-10.8 10^3/uL Red Blood Count 4.16 L 4.5-5.90 10^6/uL Hemoglobin 11.7 L 13.5-17.5 g/dL Hematocrit 35.3 L 41.0-53.0 % Mean Corpuscular Volume 85.0 80.0-100.0 fL Mean Corpuscular Hemoglobin 28.1 28.0-32.0 pg Mean Corpuscular Hemoglobin Concent 33.1 32.0-36.0 g/dL Red Cell Distribution Width 16.1 H 11.8-14.3 % Platelet Count 248 140-450 10^3/uL Mean Platelet Volume 7.7 6.9-10.8 fL Neutrophils (%) (Auto) 81.9 H 37.0-80.0 % Lymphocytes (%) (Auto) 10.8 10.0-50.0 % Monocytes (%) (Auto) 6.6 0.0-12.0 % Eosinophils (%) (Auto) 0.3 0.0-7.0 % Basophils (%) (Auto) 0.4 0.0-2.0 % Neutrophils # (Auto) 15.6 H 1.6-8.6 10 ^3/uL Lymphocytes # (Auto) 2.1 0.4-5.4 10 ^3/uL Monocytes # (Auto) 1.3 0-1.3 10 ^3/uL Eosinophils # (Auto) 0.1 0-0.8 10 ^3/uL Basophils # (Auto) 0.1 0-0.2 10 ^3/uL Nucleated Red Blood Cells 0.0 % Sodium Level 135 L 136-145 mmol/L Potassium Level 4.9 3.5-5.1 mmol/L Chloride Level 97 L 98-107 mmol/L Carbon Dioxide Level 28 20-31 mmol/L Anion Gap 10 5-15 Blood Urea Nitrogen 23 9-23 mg/dL Creatinine 1.57 H 0.700-1.30 mg/dL Glomerular Filtration Rate Calc 47 >90 mL/min BUN/Creatinine Ratio 14.6 10.0-20.0 Serum Glucose 167 H 74-106 mg/dL Calcium Level 9.6 8.7-10.4 mg/dL Total Bilirubin 0.5 0.2-1.0 mg/dL Aspartate Amino Transferase (AST) 19 13-40 U/L Alanine Aminotransferase (ALT) 18 7-40 U/L Alkaline Phosphatase 115 46-116 U/L B-Type Natriuretic Peptide 149.96 0-100 pg/mL Total Protein 7.8 5.7-8.2 g/dL Albumin 4.5 3.2-4.8 g/dL Lipase 46 12-53 U/L PATIENT: CURTIS PASCUAL ACCT: [id number] UNIT: [id number] : 1955 LOC: ER ROOM / BED: / AGE / SEX: 70 / M ADM STATUS: REG ER SERVICE 06 ORDERING PHYSICIAN: TOÑO ACHARYA PAC PROCEDURE(s): RFTCT - CT R FOOT WO CONTRAST REASON: Rule out osteo at 1st MTP ORDER NUMBER(s): [id number], ACCESSION NUMBER(s): [id number] EXAM: CT CT R FOOT WO CONTRAST INDICATION: Rule out osteo at 1st MTP TECHNIQUE: Axial images of right foot without contrast have been obtained along with coronal and sagittal reformatted images. All CT scans at this facility use dose modulation, iterative reconstruction, and/or weight based dosing when appropriate to reduce radiation dose to as low as reasonably achievable. COMPARISON: XY R FOOT 3 VIEW XRAY on DOS: 09/23/23 FINDINGS: BONES: Irregular sclerosis of the medial hallux sesamoid. Minimal opposing possible subchondral cystic change centered of the 1st metatarsophalangeal joint. Imaging findings may be degenerative however superimposed osteomyelitis given plantar soft tissue ulceration not excluded. Recommend further evaluation with MRI with and without contrast. posterior calcaneal tuberosity spurring. Vascular calcifications. MUSCLES: No abnormal attenuation. JOINT SPACES: No joint effusion. TENDONS/LIGAMENTS: Intact. OTHER: None. IMPRESSION: 1. Irregular sclerosis of the medial hallux sesamoid. 2. Minimal opposing possible subchondral cystic change centered of the 1st metatarsophalangeal joint. 3. Imaging findings may be degenerative however superimposed osteomyelitis given plantar soft tissue ulceration not excluded. 4. Recommend further evaluation with MRI with and without contrast. SEPSIS Sepsis Screen Date sepsis recognized/suspect: Apr 20, 2025 Time Sepsis recognized/suspect: 19:46 Recent Procedure: Yes On Antibiotic Therapy: No Respiratory Rate >20: No Heart Rate >90: No Temp<36 C (96.8 F) or >38.3 C: No SBP <90 or MAP <65 mmHG: No New Acute Mental Status Change: No Is the patient on CPAP, BIPAP,: No IV fluid challenge completed?: Yes Physician Orders Electrocardigram (04/20/25 19:07) Heplock Iv (04/20/25 ) Ct R Foot Wo Contrast (04/20/25 19:07) Blood Culture (04/20/25 19:56) Vancomycin Per Pharmacy (04/20/25 21:30) Consistent Carb(Ccho)Diabetes (04/21/25 Breakfast) Amlodipine Tablet (Norvasc Tablet) (04/21/25 10:00) Clonidine Hcl Tablet (Catapres Tablet) (04/20/25 21:30) Metoprolol Tartrate Tablet (Lopressor Ta (04/20/25 22:00) Atorvastatin (Lipitor) (04/20/25 22:00) Gabapentin Capsule (Neurontin Capsule) (04/20/25 22:00) Cholecalciferol Tablet (Vitamin D3 Table (04/21/25 10:00) Glucose Blood (Accu-Chek Comfort Curve T (04/20/25 22:00) Insulin R (Human) (Insulin R) (04/20/25 22:00) Insulin R (Human) (Insulin R) (04/21/25 07:00) Dextrose 50% Syringe (04/20/25 21:30) Allergies (04/20/25 21:18) Code Status (04/20/25 21:18) Sodium Chloride 0.9% (04/20/25 21:30) Oxygen Per Hour (04/20/25 21:18) Hydrocodone-Acet 5/325mg Tab (Minneola 5/32 (04/20/25 21:30) Ondansetron Hcl (Zofran) (04/20/25 21:30) Docusate Sodium Capsule (Colace Capsule) (04/20/25 21:30) Complete Blood Count (04/21/25 04:00) Comprehensive Metabolic Panel (04/21/25 04:00) Condition: Serious (04/20/25 21:18) Acetaminophen Tablet (Tylenol Tablet) (04/20/25 21:30) Bedrest With Bathroom Privileg (04/20/25 21:18) Sequential Compression Device (04/20/25 ) Aspirin Tablet (04/21/25 10:00) Piperacillin-Tazob 3.375gm (Zosyn 3.375g (04/21/25 06:00) Admit (04/20/25 22:25) Nitroglycerin Sublingual (Ntrostat Subli (04/20/25 22:30) Vital Signs Date Time Temp Pulse Resp B/P (MAP) Pulse Ox O2 Delivery O2 Flow Rate FiO2 04/20/25 21:45 97.5 76 20 149/61 (90) 95 97.5 04/20/25 18:34 99.5 85 18 144/74 90 99.5 Laboratory Tests Test 04/20/25 19:19 04/20/25 20:35 Lactic Acid Level 2.4 mmol/L (0.4-2.0) *H 1.8 mmol/L (0.4-2.0) White Blood Count 19.1 10^3/uL (4.4-10.8) H Medications Medications Dose Ordered Sig/Ankur Route Start Time Stop Time Status Last Admin Dose Admin Acetaminophen/ Hydrocodone Bitart 1 tab ONCE ONCE PO 04/20/25 19:15 04/20/25 19:16 DC 04/20/25 22:00 1 TAB Assessment/Plan Assessment/Plan Diabetes mellitus with foot ulcer Generalized weakness Acute renal injury Anemia, unspecified Leukocytosis, unspecified Plan 1. Admit to med surge unit 2. Breathing treatment 3. Pain control management 4. IV antibiotic management 5. Management of fluids and electrolytes 6. Consultation for hospitalist/wound care 7. Diagnostic test chest x-ray 8. DVT prophylaxis-on aspirin 9. Repeat labs CBC, CMP in a.m. 10. Home medication reviewed and reconciled 11. Continue with current medical management 12. Treatment plan discussed with patient and RN. Patient verbalized understanding. Plan discussed with: Patient, Other (RN) My Orders Orders - KATIUSKA DELUCA DNP Procedure Category Date Status Time Vancomycin Per PHA 04/20/25 Pending Pharmacy 21:30 Consistent DIET 04/21/25 Transmitted Carb(Ccho)Diabetes Breakfast Amlodipine Tablet PHA 04/21/25 In Process (Norvasc Tablet) 10:00 Clonidine Hcl Tablet PHA 04/20/25 In Process (Catapres Tablet) 21:30 Metoprolol Tartrate PHA 04/20/25 In Process Tablet (Lopressor Ta 22:00 Atorvastatin (Lipitor) PHA 04/20/25 In Process 22:00 Gabapentin Capsule PHA 04/20/25 In Process (Neurontin Capsule) 22:00 Cholecalciferol PHA 04/21/25 In Process Tablet (Vitamin D3 10:00 Glucose Blood PHA 04/20/25 In Process (Accu-Chek Comfort 22:00 Insulin R (Human) PHA 04/20/25 In Process (Insulin R) 22:00 Insulin R (Human) PHA 04/21/25 In Process (Insulin R) 07:00 Dextrose 50% Syringe PHA 04/20/25 In Process 21:30 Allergies BECKY 04/20/25 In Process 21:18 Code Status CODE 04/20/25 Transmitted 21:18 Sodium Chloride 0.9% PHA 04/20/25 In Process 21:30 Oxygen Per Hour RT 04/20/25 Transmitted 21:18 Hydrocodone-Acet PHA 04/20/25 In Process 5/325mg Tab (Minneola 21:30 Ondansetron Hcl PHA 04/20/25 In Process (Zofran) 21:30 Docusate Sodium PHA 04/20/25 In Process Capsule (Colace 21:30 Complete Blood Count LAB 04/21/25 Verified 04:00 Comprehensive LAB 04/21/25 Verified Metabolic Panel 04:00 Condition: Serious BECKY 04/20/25 In Process 21:18 Acetaminophen Tablet PHA 04/20/25 In Process (Tylenol Tablet) 21:30 Bedrest With Bathroom BECKY 04/20/25 In Process Privileg 21:18 Sequential BECKY 04/20/25 In Process Compression Device Aspirin Tablet PHA 04/21/25 In Process 10:00 Piperacillin-Tazob PHA 04/21/25 In Process 3.375gm (Zosyn 3.375g 06:00 Admit ADMIT 04/20/25 Verified 22:25 Nitroglycerin PHA 04/20/25 Verified Sublingual (Ntrostat 22:30 Problem List: (1) Diabetes mellitus with foot ulcer (2) Generalized weakness (3) Acute renal injury (4) Anemia, unspecified (5) Leukocytosis, unspecified Date of Service: Apr 20, 2025 Billing Provider: KATIUSKA DELUCA DNP Common Visit Codes: [id number] INP/OBS CARE (HIGH) KATIUSKA DELUCA DNP Apr 20, 2025 22:28
[2025-04-20] MEDS ORDERED: MORPHINE SULFATE INJ 2 MG/ml SYRG IV PRN (22:30)
[2025-04-20] MEDS ORDERED: NITROGLYCERIN 0.4 MG SL TAB SL PRN (22:30)
[2025-04-20] MEDS: PIPERACILLIN-TAZOB 3.375GM 100 ML IV ONE (22:32)
[2025-04-20] MEDS: METOPROLOL TARTRATE 25 MG TAB PO SCH (22:43)
[2025-04-20] MEDS: GABAPENTIN 100 MG CAP PO SCH (22:43)
[2025-04-20] MEDS: ATORVASTATIN 20 MG TAB PO SCH (22:43)
[2025-04-20] MEDS: ACCU-CHEK COMFORT CURVE STRIP VI SCH (22:54)
[2025-04-20] MEDS: InsuLIN REG 1unit/0.01ml Soln (100units/ml) SC SCH (23:01)
[2025-04-20 23:55] VITALS: O2SAT 90
[2025-04-21] MEDS: VANCOMYCIN 1.5GM/250ML 250 ML IV ONE (00:27)
[2025-04-21] MEDS: SODIUM CHLORIDE 0.9% 1,000 ML IV SCH (00:27)
[2025-04-21 05:22] LABS: Hematocrit 32.5 % (41.0-53.0); Hemoglobin 10.7 g/dL (13.5-17.5); Mean Corpuscular Hemoglobin 27.9 pg (28.0-32.0); Mean Corpuscular Volume 84.6 fL (80.0-100.0); Nucleated Red Blood Cells % 0.1 %
[2025-04-21 05:45] LABS: Alanine Aminotransferase 13 U/L (7-40); Albumin 3.9 g/dL (3.2-4.8); Alkaline Phosphatase 94 U/L (46-116); Anion Gap 10 (5-15); BUN/Creatinine Ratio 16.4 (10.0-20.0); Calcium 9.4 mg/dL (8.7-10.4); Carbon Dioxide 29 mmol/L (20-31); Potassium 4.6 mmol/L (3.5-5.1); Sodium 137 mmol/L (136-145); Total Protein 7.0 g/dL (5.7-8.2)
[2025-04-21 05:46] LABS: Bilirubin, Total 0.7 mg/dL (0.2-1.0)
[2025-04-21 05:47] LABS: Blood Urea Nitrogen 26 mg/dL (9-23); Chloride 98 mmol/L (98-107); Glucose 141 mg/dL (74-106)
[2025-04-21] MEDS: PIPERACILLIN-TAZOB 3.375GM 100 ML IV SCH (05:54)
[2025-04-21] MEDS: InsuLIN REG 1unit/0.01ml Soln (100units/ml) SC SCH (06:30)
[2025-04-21 07:40] VITALS: PULSE 62; RESP 12; O2SAT 98
[2025-04-21] MEDS: CHOLECALCIFEROL (VITD3) 1,000UNIT=25mCg TAB PO SCH (10:44)
[2025-04-21] MEDS: VANCOMYCIN 1GM/250ML KIT 250 ML IV SCH (10:44)
[2025-04-21 13:07] VITALS: BP 146/66; PULSE 71; RESP 22; TEMP 98; O2SAT 96
--- NOTE | 2025-04-21 13:17 | DVHPN2 ---
Reviewed: Care Plan, H&P, Labs, Medications, Previous Orders, Radiology Changes from previous H/P or p: No Changes Eyes: No Pain, No Vision change, No Conjunctivae inflammation, No Eyelid inflammation, No Other, No Redness ENT: No Ear pain, No Ear discharge, No Nose pain, No Nose discharge, No Nose congestion, No Mouth pain, No Mouth swelling, No Throat pain, No Throat swelling, No Other Cardiovascular: No Chest Pain, No Palpitations, No Orthopnea, No Paroxysmal Noc. Dyspnea, No Edema, No Lt Headedness, No Other Respiratory: No Cough, No Dry, No Shortness of breath, No SOB with excertion, No Wheezing, No Hemoptysis, No Pleuritic Pain, No Sputum, No Other Gastrointestinal: No Nausea, No Vomiting, No Abdominal Pain, No Diarrhea, No Constipation, No Melena, No Hematochezia, No Other Genitourinary: No Dysuria, No Frequency, No Incontinence, No Hematuria, No Retention, No Other Musculoskeletal: other (Right foot pain); No neck pain, No shoulder pain, No arm pain, No back pain, No hand pain, No leg pain, No foot pain Skin: No Rash, No Lesions, No Jaundice, No Bruising, No Other Objective Vitals Vital Signs Date Time Temp Pulse Resp B/P (MAP) Pulse Ox O2 Delivery O2 Flow Rate FiO2 04/21/25 11:58 71 144/79 04/21/25 11:55 97.7 22 94 97.7 04/21/25 07:40 Nasal Cannula* 4 36 Medications Current Medications Medications Dose Ordered Sig/Ankur Route Start Time Stop Time Status Last Admin Dose Admin Vancomycin HCl 0 ml @ 0 mls/hr PER PHARMACY IV 04/20/25 21:30 Piperacillin Sod/ Tazobactam Sod 100 ml @ 25 mls/hr Q8HR IV 04/21/25 06:00 04/21/25 05:54 25 MLS/HR Amlodipine Besylate 10 mg DAILY PO 04/21/25 10:00 04/21/25 10:44 10 MG Clonidine HCl 0.1 mg Q4HP PRN PO 04/20/25 21:30 Metoprolol Tartrate 25 mg BID PO 04/20/25 22:00 04/21/25 10:45 25 MG Atorvastatin Calcium 20 mg HS PO 04/20/25 22:00 04/20/25 22:43 20 MG Gabapentin 100 mg BID PO 04/20/25 22:00 04/21/25 10:45 100 MG Cholecalciferol 1,000 unit DAILY PO 04/21/25 10:00 04/21/25 10:44 1,000 UNIT Diagnostic Test (Pha) 1 strip ACHS 04/20/25 22:00 04/21/25 11:51 1 STRIP Insulin Human Regular HS SC 04/20/25 22:00 04/20/25 23:01 2 UNITS Insulin Human Regular AC SC 04/21/25 07:00 04/21/25 11:54 6 UNITS Dextrose 50 ml UD PRN IV 04/20/25 21:30 Sodium Chloride 1,000 ml @ 60 mls/hr [id number] IV 04/20/25 21:30 04/21/25 00:27 60 MLS/HR Acetaminophen/ Hydrocodone Bitart 1 tab Q4HP PRN PO 04/20/25 21:30 Ondansetron HCl 4 mg Q4HP PRN IV 04/20/25 21:30 Docusate Sodium 100 mg BIDPRN PRN PO 04/20/25 21:30 Acetaminophen 650 mg Q6HP PRN PO 04/20/25 21:30 Aspirin 81 mg DAILY PO 04/21/25 10:00 04/21/25 10:45 81 MG Nitroglycerin 0.4 mg Q5MINP PRN SL 04/20/25 22:30 Morphine Sulfate 2 mg Q30M PRN IV 04/20/25 22:30 Vancomycin HCl 250 ml @ 200 mls/hr Q12H IV 04/21/25 10:00 04/21/25 10:44 200 MLS/HR Laboratory Results Laboratory Tests 04/21/25 04:32 Chemistry Test 04/20/25 19:19 04/21/25 04:32 Albumin 4.5 g/dL (3.2-4.8) 3.9 g/dL (3.2-4.8) Calcium Level 9.6 mg/dL (8.7-10.4) 9.4 mg/dL (8.7-10.4) Total Protein 7.8 g/dL (5.7-8.2) 7.0 g/dL (5.7-8.2) Lipid panel Test 04/20/25 19:19 Lipase 46 U/L (12-53) Cardiac Markers Test 04/20/25 19:19 B-Type Natriuretic Peptide 149.96 pg/mL (0-100) LFT Test 04/20/25 19:19 04/21/25 04:32 Alanine Aminotransferase (ALT) 18 U/L (7-40) 13 U/L (7-40) Alkaline Phosphatase 115 U/L (46-116) 94 U/L (46-116) Aspartate Amino Transferase (AST) 19 U/L (13-40) 17 U/L (13-40) Total Bilirubin 0.5 mg/dL (0.2-1.0) 0.7 mg/dL (0.2-1.0) Labs and/or images reviewed: Labs reviewed by me, Image(s) reviewed by me Assessment/Plan Assessment/Plan Sepsis secondary to diabetic foot ulcer Nonhealing right foot diabetic ulcer: Wound cultures vancomycin Zosyn podiatry consult for Dr. Mcclure: Arterial ultrasound rule out peripheral arterial disease Uncontrolled diabetes: Insulin sliding scale MENDEL Chronic anemia Hypotension Hypercholesterolemia CKD Acute Lactic acidosis Patient on home health Time spent 55 minutes Advanced care planning time 20 mts Plan discussed with: Patient My Orders Orders - CLARENCE HOUSTON MD Procedure Category Date Status Time Rt Low Ext Art Duplex US 04/21/25 Logged 13:12 Date of Service: Apr 21, 2025 Billing Provider: CLARENCE HOUSTON MD Common Visit Codes: [id number] CARE 30-74 MIN CLARENCE HOUSTON MD Apr 21, 2025 13:17
--- NOTE | 2025-04-21 15:46 | DVH ---
Indication: Nonhealing right foot ulcer Technique: Real- time ultrasound images of the lower extremity with grayscale, color, and spectral wave Doppler. Comparison: US BILAT LOW EXT ART DUPLEX on DOS: 08/06/23, RT LOW EXT ART DUPLEX on DOS: 06/12/22 Findings: Biphasic/triphasic waveforms right BINGO CALLER, SFA, popliteal artery. Monophasic waveform right dorsalis pe dis, anterior tibial and posterior tibial arteries. Scattered atherosclerotic calcification disease. 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 Recommend vascular s urgery consultation.
[2025-04-21 17:00] VITALS: BP 136/66; PULSE 68; RESP 20; TEMP 98.1; O2SAT 97
[2025-04-21 21:00] VITALS: BP 130/55; PULSE 69; RESP 16; TEMP 97.8; O2SAT 96
[2025-04-22] VITALS (8 sets, daily range): BP systolic 132–163; BP diastolic 45–77; PULSE 69–80; RESP 16–17; TEMP 97.9–98.6; O2SAT 95–100
[2025-04-22 07:59] LABS: Hematocrit 31.9 % (41.0-53.0); Hemoglobin 10.9 g/dL (13.5-17.5); Mean Corpuscular Hemoglobin 28.7 pg (28.0-32.0); Mean Corpuscular Volume 84.1 fL (80.0-100.0); Nucleated Red Blood Cells % 0.1 %
--- NOTE | 2025-04-22 10:49 | DVHPN2 ---
Reviewed: Care Plan, H&P, Labs, Medications, Previous Orders, Radiology Changes from previous H/P or p: No Changes Eyes: No Pain, No Vision change, No Conjunctivae inflammation, No Eyelid inflammation, No Other, No Redness ENT: No Ear pain, No Ear discharge, No Nose pain, No Nose discharge, No Nose congestion, No Mouth pain, No Mouth swelling, No Throat pain, No Throat swelling, No Other Cardiovascular: No Chest Pain, No Palpitations, No Orthopnea, No Paroxysmal Noc. Dyspnea, No Edema, No Lt Headedness, No Other Respiratory: No Cough, No Dry, No Shortness of breath, No SOB with excertion, No Wheezing, No Hemoptysis, No Pleuritic Pain, No Sputum, No Other Gastrointestinal: No Nausea, No Vomiting, No Abdominal Pain, No Diarrhea, No Constipation, No Melena, No Hematochezia, No Other Genitourinary: No Dysuria, No Frequency, No Incontinence, No Hematuria, No Retention, No Other Musculoskeletal: other (Right foot pain); No neck pain, No shoulder pain, No arm pain, No back pain, No hand pain, No leg pain, No foot pain Skin: No Rash, No Lesions, No Jaundice, No Bruising, No Other Objective Vitals Vital Signs Date Time Temp Pulse Resp B/P (MAP) Pulse Ox O2 Delivery O2 Flow Rate FiO2 04/22/25 09:02 98.6 70 17 132/75 (94) 100 98.6 04/21/25 20:00 Nasal Cannula* 3 32 Intake/Output Intake and Output 04/22/25 07:00 Intake Total 1680 ml Output Total 900 ml Balance 780 ml Intake Oral 1230 ml IV Total 450 ml Output Urine Total 900 ml Medications Current Medications Medications Dose Ordered Sig/Ankur Route Start Time Stop Time Status Last Admin Dose Admin Vancomycin HCl 0 ml @ 0 mls/hr PER PHARMACY IV 04/20/25 21:30 Piperacillin Sod/ Tazobactam Sod 100 ml @ 25 mls/hr Q8HR IV 04/21/25 06:00 04/22/25 05:52 25 MLS/HR Amlodipine Besylate 10 mg DAILY PO 04/21/25 10:00 04/21/25 10:44 10 MG Clonidine HCl 0.1 mg Q4HP PRN PO 04/20/25 21:30 Metoprolol Tartrate 25 mg BID PO 04/20/25 22:00 04/21/25 21:20 25 MG Atorvastatin Calcium 20 mg HS PO 04/20/25 22:00 04/21/25 21:19 20 MG Gabapentin 100 mg BID PO 04/20/25 22:00 04/21/25 21:19 100 MG Cholecalciferol 1,000 unit DAILY PO 04/21/25 10:00 04/21/25 10:44 1,000 UNIT Diagnostic Test (Pha) 1 strip ACHS 04/20/25 22:00 04/22/25 05:52 1 STRIP Insulin Human Regular HS SC 04/20/25 22:00 04/21/25 21:31 4 UNITS Insulin Human Regular AC SC 04/21/25 07:00 04/22/25 05:50 6 UNITS Dextrose 50 ml UD PRN IV 04/20/25 21:30 Sodium Chloride 1,000 ml @ 60 mls/hr [id number] IV 04/20/25 21:30 04/22/25 05:52 60 MLS/HR Acetaminophen/ Hydrocodone Bitart 1 tab Q4HP PRN PO 04/20/25 21:30 Ondansetron HCl 4 mg Q4HP PRN IV 04/20/25 21:30 Docusate Sodium 100 mg BIDPRN PRN PO 04/20/25 21:30 Acetaminophen 650 mg Q6HP PRN PO 04/20/25 21:30 Aspirin 81 mg DAILY PO 04/21/25 10:00 04/21/25 10:45 81 MG Nitroglycerin 0.4 mg Q5MINP PRN SL 04/20/25 22:30 Morphine Sulfate 2 mg Q30M PRN IV 04/20/25 22:30 Laboratory Results Laboratory Tests 04/21/25 04:32 04/22/25 07:18 Microbiology Microbiology Date/Time Source Procedure Growth Status 04/20/25 20:35 Blood Blood Culture - Preliminary NO GROWTH AFTER 24 HOURS OF INCUBATION. Resulted Labs and/or images reviewed: Labs reviewed by me, Image(s) reviewed by me Assessment/Plan Assessment/Plan Sepsis secondary to diabetic foot ulcer: Blood cultures negative Nonhealing right foot diabetic ulcer: Wound cultures vancomycin Zosyn podiatry consult for Dr. Mcclure: Arterial ultrasound rule out peripheral arterial disease Uncontrolled diabetes: Insulin sliding scale Severe Peripheral artery disease right lower extremity: Consult for Dr. Zimmer MENDEL Chronic anemia Hypotension Hypercholesterolemia CKD Acute Lactic acidosis Patient on home health Time spent 55 minutes Advanced care planning time 20 mts Discharged from [facility] on 04/07/2025,now on [facility] Health Plan discussed with: Patient My Orders Orders - CLARENCE HOUSTON MD Procedure Category Date Status Time Rt Low Ext Art Duplex US 04/21/25 Resulted 13:12 *Podiatry Consult CONS 04/21/25 Transmitted [facility]on([facility]) 13:12 Date of Service: Apr 22, 2025 Billing Provider: CLARENCE HOUSTON MD Common Visit Codes: [id number] INP/OBS CARE(HIGH) CLARENCE HOUSTON MD Apr 22, 2025 10:49
--- NOTE | 2025-04-22 14:07 | DVHINCON2 ---
[facility] ZELAYA [facility] 04/22/25 1407: Date Seen: Apr 22, 2025 Referring Physician MD Ron Reason for Consultation RLE PAD History of Present Illness This is a 70-year-old male patient who presents to the emergency room with chief complaint of nonhealing right foot ulcer. Patient reports he has been having this ulcer for approximately four months. He now reports right foot pain on ambulation. An arterial duplex revealed monophasic waveforms within the right infrapopliteal/tibial vasculature with diminished velocity disease consistent with stenosis. Cardiology has been consulted at this time. The patient denies any cardiac symptoms such as chest pain, shortness of breath, palpitations, or dizziness. No twelve lead electrocardiogram found in patient's hard chart. Troponin levels have been negative. Significant past medical history includes severe coronary artery disease s/p triple-vessel CABG on 01/16/2025 (on ASA), congestive heart failure, hypertension, dyslipidemia, pulmonary hypertension, insulin-dependent type 2 diabetes mellitus, history of CVA without residual deficit, and obesity. The patient states that he follows up with a golf ball cover treater in the outpatient setting, but is unsure of his name. Past Medical History Past medical history reviewed. No other significant than mentioned above. Past Surgical History Triple-vessel CABG on 01/16/2025 Family History: Diabetes mellitus G8 MOTHER, G8 FATHER, Family History Family history reviewed. Social History Denies the use of tobacco, alcohol or illicit drugs. Allergies: Coded Allergies: NO KNOWN ALLERGIES (Unverified , 11/10/24) Home Meds Reported Medications Metformin Hydrochloride (Metformin Hcl) 1,000 Mg Tab, 1 TAB PO BIDWM for DIABETES TAKE WITH MORNING AND EVENING MEALS 01/09/25 Insulin Glargine (Lantus Solostar) 100 Unit/Ml Inj, 30 UNIT SC QPM for DIABETES 01/09/25 Gabapentin (Gabapentin) 100 Mg Cap, 1 CAP PO HS for NEUROPATHY 01/09/25 Ferrous Sulfate Dried (Iron High Potency) 65 Mg Tab, 1 TAB PO BID for SUPPLEMENT 01/09/25 Cholecalciferol (Vitamin D3) 1,000 Unit Cap, 1 CAP PO DAILY for SUPPLEMENT 01/09/25 Amlodipine Besylate (Amlodipine Besylate) 10 Mg Tab, 1 TAB PO QAM for HYPERTENSION 01/09/25 Aspirin (Aspirin Low Dose) 81 Mg Chw, 1 TAB PO DAILY for HEART ATTACK PREVENTION 10/15/23 Insulin Glargine (Lantus Solostar) 100 Unit/Ml Inj, 20 UNIT SC QAM for DIABETES 10/15/23 Atorvastatin Calcium (Lipitor) 40 Mg Tab, 1 TAB PO HS for HIGH CHOLESTEROL 10/15/23 Losartan Potassium (Losartan Potassium) 100 Mg Tab, 1 TAB PO QAM for HYPERTENSION 10/15/23 Glimepiride (Glimepiride) 4 Mg Tab, 1 TAB PO BID for DIABETES 10/15/23 Home Meds Home medications reviewed. Review of Systems Constitutional: No symptom reported Ears, Nose, & Throat: No symptom reported Eyes: No symptom reported Neurological: No symptoms reported Pulmonary/Respiratory: No symptoms reported Cardiovascular: No symptom reported Gastrointestinal: No symptom reported Genitourinary: No symptom reported Musculoskeletal: Right foot pain Skin: No symptom reported Psychiatric: No symptom reported Endocrine: No symptom reported Hematologic/Lymphatic: No symptom reported Vital Signs Vital Signs Date Time Temp Pulse Resp B/P (MAP) Pulse Ox O2 Delivery O2 Flow Rate FiO2 04/22/25 11:10 70 132/75 04/22/25 09:02 98.6 17 100 98.6 04/22/25 08:00 Nasal Cannula* 3 32 Physical Exam General Appearance: Cooperative. Obese Pulmonary/Respiratory: Clear, bilateral breaths sounds. Cardiovascular/Chest: Regular rate and rhythm. Peripheral Pulses: 2+ Radial (R). 2+ Radial (L). Abdominal Exam: Normal bowel sounds. Ankle Exam: Negative ankle edema Lower extremities: Negative lower extremity edema Neuro/Mental Status: A/OX4, coherent. Thoughts/Psych: Normal thought pattern. Appropriate mood and affect. Good judgment and insight. Appearance: No acute distress. Skin Exam: Right foot ulcer Labs/Diagnostic Data Labs Test 04/22/25 11:33 04/22/25 07:18 04/21/25 04:32 04/20/25 20:35 Range/Units POC Glucose 252 H 70-106 mg/dl White Blood Count 9.5 # 4.4-10.8 10^3/uL Red Blood Count 3.79 L 4.5-5.90 10^6/uL Hemoglobin 10.9 L 13.5-17.5 g/dL Hematocrit 31.9 L 41.0-53.0 % Mean Corpuscular Volume 84.1 80.0-100.0 fL Mean Corpuscular Hemoglobin 28.7 28.0-32.0 pg Mean Corpuscular Hemoglobin Concent 34.1 32.0-36.0 g/dL Red Cell Distribution Width 15.8 H 11.8-14.3 % Platelet Count 207 140-450 10^3/uL Mean Platelet Volume 7.9 6.9-10.8 fL Neutrophils (%) (Auto) 73.5 37.0-80.0 % Lymphocytes (%) (Auto) 15.3 10.0-50.0 % Monocytes (%) (Auto) 8.6 0.0-12.0 % Eosinophils (%) (Auto) 2.4 0.0-7.0 % Basophils (%) (Auto) 0.2 0.0-2.0 % Neutrophils # (Auto) 7.0 1.6-8.6 10 ^3/uL Lymphocytes # (Auto) 1.5 0.4-5.4 10 ^3/uL Monocytes # (Auto) 0.8 0-1.3 10 ^3/uL Eosinophils # (Auto) 0.2 0-0.8 10 ^3/uL Basophils # (Auto) 0 0-0.2 10 ^3/uL Nucleated Red Blood Cells 0.1 % Creatinine 1.36 H 0.700-1.30 mg/dL Glomerular Filtration Rate Calc 55 >90 mL/min Random Vancomycin Level 27.4 H 5-10 ug/mL Sodium Level 137 136-145 mmol/L Potassium Level 4.6 3.5-5.1 mmol/L Chloride Level 98 98-107 mmol/L Carbon Dioxide Level 29 20-31 mmol/L Anion Gap 10 5-15 Blood Urea Nitrogen 26 H 9-23 mg/dL BUN/Creatinine Ratio 16.4 10.0-20.0 Serum Glucose 141 H 74-106 mg/dL Calcium Level 9.4 8.7-10.4 mg/dL Total Bilirubin 0.7 0.2-1.0 mg/dL Aspartate Amino Transferase (AST) 17 13-40 U/L Alanine Aminotransferase (ALT) 13 7-40 U/L Alkaline Phosphatase 94 46-116 U/L Total Protein 7.0 5.7-8.2 g/dL Albumin 3.9 3.2-4.8 g/dL Lactic Acid Level 1.8 0.4-2.0 mmol/L Troponin I High Sensitivity < 3 L </=54 ng/L Test 04/20/25 19:19 Range/Units B-Type Natriuretic Peptide 149.96 0-100 pg/mL Lipase 46 12-53 U/L Microbiology Date/Time Source Procedure Growth Status 04/20/25 20:35 Blood Blood Culture - Preliminary NO GROWTH AFTER 24 HOURS OF INCUBATION. Resulted Assessment Peripheral arterial disease of right extremity Severe coronary artery disease s/p triple-vessel CABG on 01/16/2025 (on ASA) Chronic HFpEF, NYHA class II Hypertension Dyslipidemia Pulmonary hypertension Insulin-dependent type 2 diabetes mellitus Chronic kidney disease History of CVA without residual deficits Obesity Plan/Recommendation We will continue with the following plan/recommendations (): Patient seen and examined at bedside with . A previous transthoracic echocardiogram from 02/07/2025 reveals an EF of 60%, RVSP 45 mmHg with a mild posterior pericardial effusion. An arterial duplex revealed monophasic waveforms within the right infrapopliteal/tibial vasculature with diminished velocity disease consistent with stenosis. Plans for peripheral angiogram discussed with the patient and his daughter. The procedure discussed with the patient in full detail. The patient is agreeable to undergo procedure. Tentatively, we will schedule the patient for a peripheral angiogram on 04/24/2025. In the meantime, continue with single antiplatelet therapy and lipid-lowering agent. Thank you for allowing us to care for this patient. Please call with any questions or concerns. Critical care time spent: 44 minutes This medical document was created using an electronic medical record system with voice recognition software and computerized dictation system. Although this document has been carefully reviewed, there might still be some phonetic and typographical errors. Occasional wrong-word or ``sound-alike substitutions may have occurred due to the inherent limitations of voice recognition software. These areas are purely typographical due to imperfections of the software programs and do not reflect any compromise in the patient's medical care. Please read the chart carefully and recognize, using context, where these substitutions have occurred. Plan discussed with: Patient NYHA Physical activity limitations: Class2(Slight)fatigue,sob (palpitatns, angina w activityv) Date of Service: Apr 22, 2025 Billing Provider: ISAI ZELAYA [employer] Cardiology Common Codes: [id number] INP/OBS CARE (High) Cardiology Consultation Codes: [id number] CONSULT <45MIN EMILY RODAS MD 04/22/25 1411: Family History: Diabetes mellitus G8 MOTHER, G8 FATHER, Allergies: Coded Allergies: NO KNOWN ALLERGIES (Unverified , 11/10/24) Home Meds Reported Medications Metformin Hydrochloride (Metformin Hcl) 1,000 Mg Tab, 1 TAB PO BIDWM for DIABETES TAKE WITH MORNING AND EVENING MEALS 01/09/25 Insulin Glargine (Lantus Solostar) 100 Unit/Ml Inj, 30 UNIT SC QPM for DIABETES 01/09/25 Gabapentin (Gabapentin) 100 Mg Cap, 1 CAP PO HS for NEUROPATHY 01/09/25 Ferrous Sulfate Dried (Iron High Potency) 65 Mg Tab, 1 TAB PO BID for SUPPLEMENT 01/09/25 Cholecalciferol (Vitamin D3) 1,000 Unit Cap, 1 CAP PO DAILY for SUPPLEMENT 01/09/25 Amlodipine Besylate (Amlodipine Besylate) 10 Mg Tab, 1 TAB PO QAM for HYPERTENSION 01/09/25 Aspirin (Aspirin Low Dose) 81 Mg Chw, 1 TAB PO DAILY for HEART ATTACK PREVENTION 10/15/23 Insulin Glargine (Lantus Solostar) 100 Unit/Ml Inj, 20 UNIT SC QAM for DIABETES 10/15/23 Atorvastatin Calcium (Lipitor) 40 Mg Tab, 1 TAB PO HS for HIGH CHOLESTEROL 10/15/23 Losartan Potassium (Losartan Potassium) 100 Mg Tab, 1 TAB PO QAM for HYPERTENSION 10/15/23 Glimepiride (Glimepiride) 4 Mg Tab, 1 TAB PO BID for DIABETES 10/15/23 Plan/Recommendation pt seen with cv team at risk of limb loss pt has CLTI recommend angiogram, he agrees and is awre of seriousness of 4month ulcer Plan discussed with: Patient ISAI ZELAYA Marco CORTES Apr 22, 2025 14:07 EMILY RODAS MD Apr 22, 2025 14:11
[2025-04-22] MEDS: ATORVASTATIN 20 MG TAB PO SCH (21:15)
[2025-04-23] VITALS (8 sets, daily range): BP systolic 130–155; BP diastolic 73–83; PULSE 71–94; RESP 17–18; TEMP 97.6–98.8; O2SAT 97–100
[2025-04-23 06:47] LABS: Hematocrit 31.2 % (41.0-53.0); Hemoglobin 10.9 g/dL (13.5-17.5); Mean Corpuscular Hemoglobin 29.3 pg (28.0-32.0); Mean Corpuscular Volume 84.1 fL (80.0-100.0); Nucleated Red Blood Cells % 0.0 %
[2025-04-23 06:56] LABS: Chloride 103 mmol/L (98-107); Potassium 4.8 mmol/L (3.5-5.1); Sodium 139 mmol/L (136-145)
[2025-04-23 06:57] LABS: Anion Gap 10 (5-15); Calcium 9.0 mg/dL (8.7-10.4); Carbon Dioxide 26 mmol/L (20-31)
[2025-04-23 07:02] LABS: Blood Urea Nitrogen 15 mg/dL (9-23)
[2025-04-23 07:03] LABS: BUN/Creatinine Ratio 11.5 (10.0-20.0); Glucose 212 mg/dL (74-106)
[2025-04-23] MEDS: VANCOMYCIN 500mg/100mL 100 ML IV SCH (10:00)
--- NOTE | 2025-04-23 10:25 | DVHPN2 ---
Consult Progress Note Subjective Other Systems: The patient remains in normal sinus rhythm with left bundle branch block on visual supervisor. He denies any cardiac symptoms Objective vital signs Vital Sign Date Time Temp Pulse Resp B/P (MAP) Pulse Ox O2 Delivery O2 Flow Rate FiO2 04/23/25 08:00 Nasal Cannula* 3 32 04/23/25 05:00 97.6 72 18 140/76 (97) 98 97.6 Total Intake and Output 04/22/25 04/22/25 04/23/25 15:00 23:00 07:00 Intake Total 100 ml 950 ml 400 ml Output Total 225 ml 150 ml Balance 100 ml 725 ml 250 ml medications Current Medications Medications Dose Ordered Sig/Ankur Route Start Time Stop Time Status Last Admin Dose Admin Vancomycin HCl 0 ml @ 0 mls/hr PER PHARMACY IV 04/20/25 21:30 Piperacillin Sod/ Tazobactam Sod 100 ml @ 25 mls/hr Q8HR IV 04/21/25 06:00 04/22/25 21:13 25 MLS/HR Amlodipine Besylate 10 mg DAILY PO 04/21/25 10:00 04/22/25 11:09 10 MG Clonidine HCl 0.1 mg Q4HP PRN PO 04/20/25 21:30 Metoprolol Tartrate 25 mg BID PO 04/20/25 22:00 04/22/25 21:15 25 MG Gabapentin 100 mg BID PO 04/20/25 22:00 04/22/25 21:15 100 MG Cholecalciferol 1,000 unit DAILY PO 04/21/25 10:00 04/22/25 11:09 1,000 UNIT Diagnostic Test (Pha) 1 strip ACHS 04/20/25 22:00 04/23/25 06:30 1 STRIP Insulin Human Regular HS SC 04/20/25 22:00 04/22/25 21:21 8 UNITS Insulin Human Regular AC SC 04/21/25 07:00 04/22/25 18:09 9 UNITS Dextrose 50 ml UD PRN IV 04/20/25 21:30 Sodium Chloride 1,000 ml @ 60 mls/hr [id number] IV 04/20/25 21:30 04/23/25 00:52 60 MLS/HR Acetaminophen/ Hydrocodone Bitart 1 tab Q4HP PRN PO 04/20/25 21:30 Ondansetron HCl 4 mg Q4HP PRN IV 04/20/25 21:30 Docusate Sodium 100 mg BIDPRN PRN PO 04/20/25 21:30 Acetaminophen 650 mg Q6HP PRN PO 04/20/25 21:30 Aspirin 81 mg DAILY PO 04/21/25 10:00 04/22/25 11:09 81 MG Nitroglycerin 0.4 mg Q5MINP PRN SL 04/20/25 22:30 Morphine Sulfate 2 mg Q30M PRN IV 04/20/25 22:30 Atorvastatin Calcium 80 mg HS PO 04/22/25 22:00 04/22/25 21:15 80 MG Vancomycin HCl 100 ml @ 200 mls/hr Q12H IV 04/23/25 10:00 Examination: GENERAL:Normal, LUNGS:Normal, CVS:Normal, NEURO:Normal laboratory and microbiology Laboratory Tests 04/23/25 06:11 Test 04/23/25 06:11 Range/Units Serum Glucose 212 H 74-106 mg/dL Problem List/Assessment/Plan Problem List/Assessment/Plan Peripheral arterial disease of right extremity Severe coronary artery disease s/p triple-vessel CABG on 01/16/2025 (on ASA) Chronic HFpEF, NYHA class II Hypertension Dyslipidemia Pulmonary hypertension Insulin-dependent type 2 diabetes mellitus Chronic kidney disease History of CVA without residual deficits Obesity Plan/Recommendation (): Case discussed with . A previous transthoracic echocardiogram from 02/07/2025 reveals an EF of 60%, RVSP 45 mmHg with a mild posterior pericardial effusion. An arterial duplex revealed monophasic waveforms within the right infrapopliteal/tibial vasculature with diminished velocity disease consistent with stenosis. Plans for peripheral angiogram discussed with the patient and his daughter. The procedure discussed with the patient in full detail. The patient is agreeable to undergo procedure. Tentatively, we will schedule the patient for a peripheral angiogram on 04/24/2025. In the meantime, continue with single antiplatelet therapy and lipid-lowering agent. Thank you for allowing us to care for this patient. Please call with any questions or concerns. This medical document was created using an electronic medical record system with voice recognition software and computerized dictation system. Although this document has been carefully reviewed, there might still be some phonetic and typographical errors. Occasional wrong-word or ``sound-alike substitutions may have occurred due to the inherent limitations of voice recognition software. These areas are purely typographical due to imperfections of the software programs and do not reflect any compromise in the patient's medical care. Please read the chart carefully and recognize, using context, where these substitutions have occurred. Plan discussed with: Patient Dietary Evaluation Review Comments: 1) Initiate MVI @ 1 tb qd 2) Add cardiac restriction to 60g CCHO diet 3) Collect HbA1c 4) Follow-up with cardiology, nephrology, and podiatry 5) Continue to monitor I&O, labs, and skin integrity Expected Outcomes/Goals: 1) appetite and labs to improve 2) wound to improve 3) f/u in 3-5 days Date of Service: Apr 23, 2025 Billing Provider: ISAI ZELAYA Common Visit Codes: [id number] INP/OBS CARE(HIGH) ISAI ZELAYA Apr 23, 2025 10:25
--- NOTE | 2025-04-23 12:31 | DVHPN2 ---
Reviewed: Care Plan, H&P, Labs, Medications, Previous Orders, Radiology Changes from previous H/P or p: No Changes Eyes: No Pain, No Vision change, No Conjunctivae inflammation, No Eyelid inflammation, No Other, No Redness ENT: No Ear pain, No Ear discharge, No Nose pain, No Nose discharge, No Nose congestion, No Mouth pain, No Mouth swelling, No Throat pain, No Throat swelling, No Other Cardiovascular: No Chest Pain, No Palpitations, No Orthopnea, No Paroxysmal Noc. Dyspnea, No Edema, No Lt Headedness, No Other Respiratory: No Cough, No Dry, No Shortness of breath, No SOB with excertion, No Wheezing, No Hemoptysis, No Pleuritic Pain, No Sputum, No Other Gastrointestinal: No Nausea, No Vomiting, No Abdominal Pain, No Diarrhea, No Constipation, No Melena, No Hematochezia, No Other Genitourinary: No Dysuria, No Frequency, No Incontinence, No Hematuria, No Retention, No Other Musculoskeletal: other (Right foot pain); No neck pain, No shoulder pain, No arm pain, No back pain, No hand pain, No leg pain, No foot pain Skin: No Rash, No Lesions, No Jaundice, No Bruising, No Other Objective Vitals Vital Signs Date Time Temp Pulse Resp B/P (MAP) Pulse Ox O2 Delivery O2 Flow Rate FiO2 04/23/25 10:30 71 136/76 04/23/25 09:00 97.8 18 99 97.8 04/23/25 08:00 Nasal Cannula* 3 32 Intake/Output Intake and Output 04/23/25 07:00 Intake Total 1450 ml Output Total 375 ml Balance 1075 ml Intake Oral 1250 ml IV Total 200 ml Output Urine Total 375 ml # Voids 2 Medications Current Medications Medications Dose Ordered Sig/Ankur Route Start Time Stop Time Status Last Admin Dose Admin Vancomycin HCl 0 ml @ 0 mls/hr PER PHARMACY IV 04/20/25 21:30 Piperacillin Sod/ Tazobactam Sod 100 ml @ 25 mls/hr Q8HR IV 04/21/25 06:00 04/22/25 21:13 25 MLS/HR Amlodipine Besylate 10 mg DAILY PO 04/21/25 10:00 04/23/25 10:30 10 MG Clonidine HCl 0.1 mg Q4HP PRN PO 04/20/25 21:30 Metoprolol Tartrate 25 mg BID PO 04/20/25 22:00 04/23/25 10:30 25 MG Gabapentin 100 mg BID PO 04/20/25 22:00 04/23/25 10:30 100 MG Cholecalciferol 1,000 unit DAILY PO 04/21/25 10:00 04/23/25 10:30 1,000 UNIT Diagnostic Test (Pha) 1 strip ACHS 04/20/25 22:00 04/23/25 11:32 1 STRIP Insulin Human Regular HS SC 04/20/25 22:00 04/22/25 21:21 8 UNITS Insulin Human Regular AC SC 04/21/25 07:00 04/23/25 11:38 6 UNITS Dextrose 50 ml UD PRN IV 04/20/25 21:30 Sodium Chloride 1,000 ml @ 60 mls/hr [id number] IV 04/20/25 21:30 04/23/25 00:52 60 MLS/HR Acetaminophen/ Hydrocodone Bitart 1 tab Q4HP PRN PO 04/20/25 21:30 Ondansetron HCl 4 mg Q4HP PRN IV 04/20/25 21:30 Docusate Sodium 100 mg BIDPRN PRN PO 04/20/25 21:30 Acetaminophen 650 mg Q6HP PRN PO 04/20/25 21:30 Aspirin 81 mg DAILY PO 04/21/25 10:00 04/23/25 10:30 81 MG Nitroglycerin 0.4 mg Q5MINP PRN SL 04/20/25 22:30 Morphine Sulfate 2 mg Q30M PRN IV 04/20/25 22:30 Atorvastatin Calcium 80 mg HS PO 04/22/25 22:00 04/22/25 21:15 80 MG Vancomycin HCl 100 ml @ 200 mls/hr Q12H IV 04/23/25 10:00 04/23/25 10:00 200 MLS/HR Laboratory Results Laboratory Tests 04/23/25 06:11 Chemistry Test 04/23/25 06:11 Calcium Level 9.0 mg/dL (8.7-10.4) Microbiology Microbiology Date/Time Source Procedure Growth Status 04/20/25 20:35 Blood Blood Culture - Preliminary NO GROWTH AFTER 48 HOURS OF INCUBATION. Resulted Labs and/or images reviewed: Labs reviewed by me, Image(s) reviewed by me Assessment/Plan Assessment/Plan Sepsis secondary to diabetic foot ulcer: Blood cultures negative Nonhealing right foot diabetic ulcer: Wound cultures vancomycin Zosyn podiatry consult for Dr. Mcclure: Uncontrolled diabetes: Insulin sliding scale Severe Peripheral artery disease right lower extremity: Consult for Dr. Goran mandel, planning for pericardial angiogram on 04/24/25 MENDEL Chronic anemia Hypertension Hypercholesterolemia CKD Acute Lactic acidosis Patient on home health Time spent 55 minutes Advanced care planning time 20 mts Discharged from [place] [facility] acute on 04/07/2025,now on [facility] Plan discussed with: Patient My Orders Orders - CLARENCE HOUSTON MD Procedure Category Date Status Time Apply/Change Dressing BECKY 04/22/25 In Process 10:40 Date of Service: Apr 23, 2025 Billing Provider: CLARENCE HOUSTON MD Common Visit Codes: [id number] INP/OBS CARE(HIGH) CLARENCE HOUSTON MD Apr 23, 2025 12:31
[2025-04-24] VITALS (12 sets, daily range): BP systolic 119–149; BP diastolic 71–85; PULSE 13–90; RESP 16–74; TEMP 97.2–98.9; O2SAT 96–99
[2025-04-24 09:08] LABS: Hematocrit 31.7 % (41.0-53.0); Hemoglobin 10.6 g/dL (13.5-17.5); Mean Corpuscular Hemoglobin 28.3 pg (28.0-32.0); Mean Corpuscular Volume 84.2 fL (80.0-100.0); Nucleated Red Blood Cells % 0.1 %
[2025-04-24 09:22] LABS: Chloride 102 mmol/L (98-107); Potassium 4.0 mmol/L (3.5-5.1); Sodium 138 mmol/L (136-145)
[2025-04-24 09:23] LABS: Anion Gap 10 (5-15); Calcium 8.9 mg/dL (8.7-10.4); Carbon Dioxide 26 mmol/L (20-31)
[2025-04-24 09:28] LABS: BUN/Creatinine Ratio 12.2 (10.0-20.0); Blood Urea Nitrogen 15 mg/dL (9-23)
[2025-04-24 09:30] LABS: INR 1.08 (0.9-1.15); Partial Thromboplastin Time 29.1 SEC (24.5-34.5); Prothrombin Time 11.4 sec (9.3-11.8)
[2025-04-24 09:32] LABS: Glucose 185 mg/dL (74-106)
[2025-04-24] MEDS: fentaNYL CITRATE 100 MCG/2 ML VL ONE (10:51)
[2025-04-24] MEDS: LIDOCAINE 2%HCL (LOCAL ANESTH.) INJ 20ML MDV ONE (10:51)
[2025-04-24] MEDS: MIDAZOLAM HCL 2MG/2ML 2ml VIAL (1mg/ml) ONE (10:55)
[2025-04-24] MEDS: IODIXANOL 320MG/ML 100ML BTL IV ONE (10:59)
[2025-04-24] MEDS: SODIUM CHL 0.9% 50 ML ONE (11:28)
[2025-04-24] MEDS: ANGIOMAX 250 MG VIAL IV ONE (11:28)
[2025-04-24] MEDS: CLOPIDOGREL BISULFATE 75 MG TAB ONE (12:02)
--- NOTE | 2025-04-24 12:22 | DVHPN2 ---
Progress Note Date Seen: Apr 24, 2025 Medical Necessity Reason Pt with a Central, PICC or Fol: No Subjective Patient reports: Feels better Objective vital signs Vital Sign Date Time Temp Pulse Resp B/P (MAP) Pulse Ox O2 Delivery O2 Flow Rate FiO2 04/24/25 09:00 98.1 75 16 141/75 (97) 98 98.1 04/24/25 08:05 Nasal Cannula* 3 32 Total Intake and Output 04/23/25 04/23/25 04/24/25 15:00 23:00 07:00 Intake Total 640 ml 240 ml Balance 640 ml 240 ml medications Current Medications Medications Dose Ordered Sig/Ankur Route Start Time Stop Time Status Last Admin Dose Admin Vancomycin HCl 0 ml @ 0 mls/hr PER PHARMACY IV 04/20/25 21:30 Piperacillin Sod/ Tazobactam Sod 100 ml @ 25 mls/hr Q8HR IV 04/21/25 06:00 04/24/25 06:18 25 MLS/HR Amlodipine Besylate 10 mg DAILY PO 04/21/25 10:00 04/23/25 10:30 10 MG Clonidine HCl 0.1 mg Q4HP PRN PO 04/20/25 21:30 Metoprolol Tartrate 25 mg BID PO 04/20/25 22:00 04/23/25 22:06 25 MG Gabapentin 100 mg BID PO 04/20/25 22:00 04/23/25 22:06 100 MG Cholecalciferol 1,000 unit DAILY PO 04/21/25 10:00 04/23/25 10:30 1,000 UNIT Diagnostic Test (Pha) 1 strip ACHS 04/20/25 22:00 04/24/25 06:18 1 STRIP Insulin Human Regular HS SC 04/20/25 22:00 04/23/25 22:20 4 UNITS Insulin Human Regular AC SC 04/21/25 07:00 04/23/25 17:00 12 UNITS Dextrose 50 ml UD PRN IV 04/20/25 21:30 Sodium Chloride 1,000 ml @ 60 mls/hr [id number] IV 04/20/25 21:30 04/23/25 16:10 60 MLS/HR Acetaminophen/ Hydrocodone Bitart 1 tab Q4HP PRN PO 04/20/25 21:30 Ondansetron HCl 4 mg Q4HP PRN IV 04/20/25 21:30 Docusate Sodium 100 mg BIDPRN PRN PO 04/20/25 21:30 Acetaminophen 650 mg Q6HP PRN PO 04/20/25 21:30 Aspirin 81 mg DAILY PO 04/21/25 10:00 04/23/25 10:30 81 MG Nitroglycerin 0.4 mg Q5MINP PRN SL 04/20/25 22:30 Morphine Sulfate 2 mg Q30M PRN IV 04/20/25 22:30 Atorvastatin Calcium 80 mg HS PO 04/22/25 22:00 04/23/25 22:06 80 MG Vancomycin HCl 100 ml @ 200 mls/hr Q12H IV 04/23/25 10:00 04/23/25 22:07 200 MLS/HR Examination: GENERAL:Abnormal, HEENT:Abnormal, LUNGS:Abnormal, CVS:Abnormal, ABDOMEN:Abnormal laboratory and microbiology Laboratory Tests 04/24/25 08:48 Test 04/24/25 08:48 Range/Units Serum Glucose 185 H 74-106 mg/dL Microbiology Date/Time Source Procedure Growth Status 04/20/25 20:35 Blood Blood Culture - Preliminary NO GROWTH AFTER 72 HOURS OF INCUBATION. 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 poor flow into foot, at risk for tissue/ limb loss recommend dapt high dose statin fu podiatry recs Plan discussed with: Patient My Orders My Orders Orders - EMILY RODAS MD Procedure Category Date Status Time Cl Angio Extremity CL 04/24/25 Taken Bilat S&I 10:40 Post Cath Vital Signs BECKY 04/24/25 In Process Q 15min 12:05 Post Cath Activity BECKY 04/24/25 In Process Protocol 12:05 Cardiac DIET 04/24/25 Transmitted Diet-2gna,Lofat,Lochol Lunch Hold All Metformin BECKY 04/24/25 In Process For 48 Hour 12:11 Flat In Bed BECKY 04/24/25 In Process 12:05 Dietary Evaluation Review Comments: 1) Initiate MVI @ 1 tb qd 2) Add cardiac restriction to 60g CCHO diet 3) Collect HbA1c 4) Follow-up with cardiology, nephrology, and podiatry 5) Continue to monitor I&O, labs, and skin integrity Expected Outcomes/Goals: 1) appetite and labs to improve 2) wound to improve 3) f/u in 3-5 days Date of Service: Apr 24, 2025 Billing Provider: EMILY RODAS MD Common Visit Codes: NOT BILLABLE EMILY RODAS MD Apr 24, 2025 12:22
--- NOTE | 2025-04-24 13:03 | DVHOP ---
DATE OF SURGERY: 04/24/2025 OPERATING PHYSICIAN: Wolf Zimmer MD REFERRING PHYSICIAN: Evaristo Velasquez MD PREOPERATIVE DIAGNOSIS: CLTI. POSTOPERATIVE DIAGNOSIS: CLTI. PROCEDURES PERFORMED: * Conscious sedation administration and supervision less than 50 minutes as well as 15 to 30 minutes fluoroscopy use and interpretation. * Ultrasound-guided vascular access. * Bilateral lower extremity angiogram. * Angiography first, second, third, and fourth-order catheter placement. * EMISSIONS TESTING AND REPAIR TECHNICIAN of the tibial vessels. PROCEDURE IN DETAIL: The patient signed informed consent understanding risks, benefits, and alternatives to the procedure. He wished to proceed. [place] [employer] [place] He was prepped in sterile fashion. Sedation was used per cardiac cath protocol. I administered 12 mL of 2% lidocaine to his left groin with antegrade femoral puncture. Using ultrasound-guided access, I cannulated his left common femoral artery and placed a 6-Citizen Of [place] sheath. The patient had a high bifurcation on ultrasound. At this point, angiogram was performed on the left side. This shows the left external iliac artery is patent. Left common femoral artery is patent. Left profunda artery is patent. Left proximal, mid, and distal SFA are patent. Left popliteal artery is patent. Left anterior tibial artery is patent. Left posterior tibial artery is occluded. Left peroneal artery is patent in the proximal portion. At this point, I switched with a RIM catheter to contralateral access. I parked my catheter into the contralateral ostial SFA on the right side. Angiogram was performed showing right common femoral artery is patent. Right profunda artery is patent. Right proximal, mid, and distal SFA is patent. Right popliteal artery is patent. Right tibioperoneal trunk is patent. Right anterior tibial artery has a 60% proximal stenosis. Right peroneal artery is 99% with multiple sequential tandem lesions in the proximal mid portion. The right posterior tibial artery is widely patent in the proximal mid. The distal posterior tibial into the ankle is completely occluded and there is very poor flow into the ankle and foot with essentially a dorsalis pedis with a subtotally occluded posterior tibial artery. At this point, I switched out to a Destination sheath. Angiomax bolus and drip had been initiated. With an 0.035 crossing catheter, I was able to enter the peroneal artery with an 0.014 WHISPER wire after my BMW would not cross given the highly stenotic lesion. At this point, confirmed my location and a 2.5 x 150 mm balloon was performed with balloon angioplasty with several inflations throughout the peroneal artery with several minutes of inflation. After this, the balloon was removed. 300 mcg of intraarterial nitroglycerin was administered. At this point, angiogram was performed showing less than 10% residual stenosis throughout the peroneal artery and excellent flow. Fully satisfied with our result, all guides and wires were removed and a 6-Citizen [place] Angio-Seal was delivered for closure. There was no immediate complication. CONCLUSION: * Successful EMISSIONS TESTING AND REPAIR TECHNICIAN of the 99% right peroneal artery high-grade stenosis in the proximal mid portion, status post EMISSIONS TESTING AND REPAIR TECHNICIAN with excellent result. * Right posterior tibial artery is completely occluded in the ankle. This is likely the culprit for the nonhealing ulcer. * Right anterior tibial artery with moderate disease with poor flow into the ankle and foot. PLAN: * Continue antiplatelet therapy. * Aggressive risk factor modification. * The patient is at high risk for tissue and limb loss. Follow with Podiatry consult. High-intensity medical therapy is indicated. Consider PCSK9 inhibitor as well for every opportunity to try to improve the patient's advanced extensive PAD in the foot. Wolf Zimmer MD CM/VIN TID: [id number] RECEIPT: [id number]
--- NOTE | 2025-04-24 13:39 | DVHPN2 ---
Reviewed: Care Plan, H&P, Labs, Medications, Previous Orders, Radiology Changes from previous H/P or p: No Changes Eyes: No Pain, No Vision change, No Conjunctivae inflammation, No Eyelid inflammation, No Other, No Redness ENT: No Ear pain, No Ear discharge, No Nose pain, No Nose discharge, No Nose congestion, No Mouth pain, No Mouth swelling, No Throat pain, No Throat swelling, No Other Cardiovascular: No Chest Pain, No Palpitations, No Orthopnea, No Paroxysmal Noc. Dyspnea, No Edema, No Lt Headedness, No Other Respiratory: No Cough, No Dry, No Shortness of breath, No SOB with excertion, No Wheezing, No Hemoptysis, No Pleuritic Pain, No Sputum, No Other Gastrointestinal: No Nausea, No Vomiting, No Abdominal Pain, No Diarrhea, No Constipation, No Melena, No Hematochezia, No Other Genitourinary: No Dysuria, No Frequency, No Incontinence, No Hematuria, No Retention, No Other Musculoskeletal: other (Right foot pain); No neck pain, No shoulder pain, No arm pain, No back pain, No hand pain, No leg pain, No foot pain Skin: No Rash, No Lesions, No Jaundice, No Bruising, No Other Objective Vitals Vital Signs Date Time Temp Pulse Resp B/P (MAP) Pulse Ox O2 Delivery O2 Flow Rate FiO2 04/24/25 09:00 98.1 75 16 141/75 (97) 98 98.1 04/24/25 08:05 Nasal Cannula* 3 32 Intake/Output Intake and Output 04/24/25 07:00 Intake Total 880 ml Balance 880 ml Intake Oral 880 ml # Voids 5 # Bowel Movements 2 Medications Current Medications Medications Dose Ordered Sig/Ankur Route Start Time Stop Time Status Last Admin Dose Admin Vancomycin HCl 0 ml @ 0 mls/hr PER PHARMACY IV 04/20/25 21:30 Piperacillin Sod/ Tazobactam Sod 100 ml @ 25 mls/hr Q8HR IV 04/21/25 06:00 04/24/25 06:18 25 MLS/HR Amlodipine Besylate 10 mg DAILY PO 04/21/25 10:00 04/23/25 10:30 10 MG Clonidine HCl 0.1 mg Q4HP PRN PO 04/20/25 21:30 Metoprolol Tartrate 25 mg BID PO 04/20/25 22:00 04/23/25 22:06 25 MG Gabapentin 100 mg BID PO 04/20/25 22:00 04/23/25 22:06 100 MG Cholecalciferol 1,000 unit DAILY PO 04/21/25 10:00 04/23/25 10:30 1,000 UNIT Diagnostic Test (Pha) 1 strip ACHS 04/20/25 22:00 04/24/25 06:18 1 STRIP Insulin Human Regular HS SC 04/20/25 22:00 04/23/25 22:20 4 UNITS Insulin Human Regular AC SC 04/21/25 07:00 04/23/25 17:00 12 UNITS Dextrose 50 ml UD PRN IV 04/20/25 21:30 Sodium Chloride 1,000 ml @ 60 mls/hr [id number] IV 04/20/25 21:30 04/23/25 16:10 60 MLS/HR Acetaminophen/ Hydrocodone Bitart 1 tab Q4HP PRN PO 04/20/25 21:30 Ondansetron HCl 4 mg Q4HP PRN IV 04/20/25 21:30 Docusate Sodium 100 mg BIDPRN PRN PO 04/20/25 21:30 Acetaminophen 650 mg Q6HP PRN PO 04/20/25 21:30 Aspirin 81 mg DAILY PO 04/21/25 10:00 04/23/25 10:30 81 MG Nitroglycerin 0.4 mg Q5MINP PRN SL 04/20/25 22:30 Morphine Sulfate 2 mg Q30M PRN IV 04/20/25 22:30 Atorvastatin Calcium 80 mg HS PO 04/22/25 22:00 04/23/25 22:06 80 MG Vancomycin HCl 100 ml @ 200 mls/hr Q12H IV 04/23/25 10:00 04/23/25 22:07 200 MLS/HR Laboratory Results Laboratory Tests 04/24/25 08:48 Chemistry Test 04/24/25 08:48 Calcium Level 8.9 mg/dL (8.7-10.4) Coagulation Test 04/24/25 08:48 Prothrombin Time 11.4 sec (9.3-11.8) Prothrombin Time INR 1.08 (0.9-1.15) Activated Partial Thromboplast Time 29.1 SEC (24.5-34.5) Microbiology Microbiology Date/Time Source Procedure Growth Status 04/20/25 20:35 Blood Blood Culture - Preliminary NO GROWTH AFTER 72 HOURS OF INCUBATION. Resulted Labs and/or images reviewed: Labs reviewed by me, Image(s) reviewed by me Assessment/Plan Assessment/Plan Sepsis secondary to diabetic foot ulcer: Blood cultures negative Nonhealing right foot diabetic ulcer: Wound cultures vancomycin Zosyn podiatry consult for Dr. Mcclure: Uncontrolled diabetes: Insulin sliding scale Severe Peripheral artery disease right lower extremity: Consult for Dr. Zimmer appreciated, status post successful PIPELINES MANAGER of right peroneal artery by associate professor of theatre Dr. Zimmer, right posterior tibial artery disease is completely occluded, right anterior tibial artery with moderate disease Chronic anemia Hypertension Hypercholesterolemia CKD Acute Lactic acidosis Patient on home health Time spent 55 minutes Advanced care planning time 20 mts Discharged from [place] post acute on 04/07/2025,now on [facility] Plan discussed with: Patient Date of Service: Apr 24, 2025 Billing Provider: CLARENCE HOUSTON MD Common Visit Codes: [id number] CARE 30-74 MIN CLARENCE HOUSTON MD Apr 24, 2025 13:39
[2025-04-25] VITALS (8 sets, daily range): BP systolic 136–155; BP diastolic 78–85; PULSE 69–96; RESP 16–20; TEMP 97.9–98.5; O2SAT 96–100
[2025-04-25] MEDS: CLOPIDOGREL BISULFATE 75 MG TAB PO SCH (09:47)
--- NOTE | 2025-04-25 12:15 | DVHPN2 ---
Reviewed: Care Plan, H&P, Labs, Medications, Previous Orders, Radiology Changes from previous H/P or p: No Changes Eyes: No Pain, No Vision change, No Conjunctivae inflammation, No Eyelid inflammation, No Other, No Redness ENT: No Ear pain, No Ear discharge, No Nose pain, No Nose discharge, No Nose congestion, No Mouth pain, No Mouth swelling, No Throat pain, No Throat swelling, No Other Cardiovascular: No Chest Pain, No Palpitations, No Orthopnea, No Paroxysmal Noc. Dyspnea, No Edema, No Lt Headedness, No Other Respiratory: No Cough, No Dry, No Shortness of breath, No SOB with excertion, No Wheezing, No Hemoptysis, No Pleuritic Pain, No Sputum, No Other Gastrointestinal: No Nausea, No Vomiting, No Abdominal Pain, No Diarrhea, No Constipation, No Melena, No Hematochezia, No Other Genitourinary: No Dysuria, No Frequency, No Incontinence, No Hematuria, No Retention, No Other Musculoskeletal: other (Right foot pain); No neck pain, No shoulder pain, No arm pain, No back pain, No hand pain, No leg pain, No foot pain Skin: No Rash, No Lesions, No Jaundice, No Bruising, No Other Objective Vitals Vital Signs Date Time Temp Pulse Resp B/P (MAP) Pulse Ox O2 Delivery O2 Flow Rate FiO2 04/25/25 10:48 80 134/74 04/25/25 09:00 97.9 18 98 97.9 04/25/25 08:00 Nasal Cannula* 3 32 Intake/Output Intake and Output 04/25/25 07:00 Intake Total 900 ml Output Total 480 ml Balance 420 ml Intake Oral 600 ml IV Total 300 ml Output Urine Total 480 ml # Bowel Movements 2 Medications Current Medications Medications Dose Ordered Sig/Ankur Route Start Time Stop Time Status Last Admin Dose Admin Vancomycin HCl 0 ml @ 0 mls/hr PER PHARMACY IV 04/20/25 21:30 Piperacillin Sod/ Tazobactam Sod 100 ml @ 25 mls/hr Q8HR IV 04/21/25 06:00 04/25/25 05:45 25 MLS/HR Amlodipine Besylate 10 mg DAILY PO 04/21/25 10:00 04/25/25 09:48 10 MG Clonidine HCl 0.1 mg Q4HP PRN PO 04/20/25 21:30 Metoprolol Tartrate 25 mg BID PO 04/20/25 22:00 04/25/25 09:48 25 MG Gabapentin 100 mg BID PO 04/20/25 22:00 04/25/25 09:47 100 MG Cholecalciferol 1,000 unit DAILY PO 04/21/25 10:00 04/25/25 09:48 1,000 UNIT Diagnostic Test (Pha) 1 strip ACHS 04/20/25 22:00 04/25/25 11:05 1 STRIP Insulin Human Regular HS SC 04/20/25 22:00 04/24/25 21:46 8 UNITS Insulin Human Regular AC SC 04/21/25 07:00 04/25/25 11:09 12 UNITS Dextrose 50 ml UD PRN IV 04/20/25 21:30 Sodium Chloride 1,000 ml @ 60 mls/hr [id number] IV 04/20/25 21:30 04/24/25 14:22 60 MLS/HR Acetaminophen/ Hydrocodone Bitart 1 tab Q4HP PRN PO 04/20/25 21:30 Ondansetron HCl 4 mg Q4HP PRN IV 04/20/25 21:30 Docusate Sodium 100 mg BIDPRN PRN PO 04/20/25 21:30 Acetaminophen 650 mg Q6HP PRN PO 04/20/25 21:30 Aspirin 81 mg DAILY PO 04/21/25 10:00 04/25/25 09:47 81 MG Nitroglycerin 0.4 mg Q5MINP PRN SL 04/20/25 22:30 Morphine Sulfate 2 mg Q30M PRN IV 04/20/25 22:30 Atorvastatin Calcium 80 mg HS PO 04/22/25 22:00 04/24/25 21:25 80 MG Vancomycin HCl 100 ml @ 200 mls/hr Q12H IV 04/23/25 10:00 04/25/25 09:47 200 MLS/HR Clopidogrel Bisulfate 75 mg DAILY PO 04/25/25 10:00 04/25/25 09:47 75 MG Laboratory Results Laboratory Tests 04/24/25 08:48 04/25/25 08:58 Microbiology Microbiology Date/Time Source Procedure Growth Status 04/20/25 20:35 Blood Blood Culture - Preliminary NO GROWTH AFTER 72 HOURS OF INCUBATION. Resulted Labs and/or images reviewed: Labs reviewed by me, Image(s) reviewed by me Assessment/Plan Assessment/Plan Sepsis secondary to diabetic foot ulcer: Blood cultures negative Nonhealing right foot diabetic ulcer: Wound cultures vancomycin Zosyn podiatry consult for Dr. Mcclure appreciated, advised no surgical intervention Uncontrolled diabetes: Insulin sliding scale Severe Peripheral artery disease right lower extremity: Consult for Dr. Zimmer appreciated, status post successful LINING PRINTER of right peroneal artery by bias cutter helper Dr. Zimmer, right posterior tibial artery disease is completely occluded, right anterior tibial artery with moderate disease Chronic anemia Hypertension Hypercholesterolemia CKD Acute Lactic acidosis Patient on home health Time spent 55 minutes Advanced care planning time 20 mts Discharged from [place] [facility] acute on 04/07/2025,now on [facility] Daughter Clary [phone] at bedside and requesting patient to be discharged home on home health for IV antibiotics Plan discussed with: Patient Date of Service: Apr 25, 2025 Billing Provider: CLARENCE HOUSTON MD Common Visit Codes: [id number] INP/OBS CARE(HIGH) CLARENCE HOUSTON MD Apr 25, 2025 12:15
--- NOTE | 2025-04-25 12:19 | DVHCONRES ---
Date Seen: Apr 25, 2025 Reason for Consultation Right foot wound History of Present Illness The patient is a 70-year-old male with past medical history of chronic kidney disease, diabetes mellitus, UTIs, hyperlipidemia, and hypertension who presented to [facility] ED for evaluation of right medial foot ulcer. Patient's daughter reports that, he was seen by his home health nurse who noticed patient having elevated temperature, worsening foot ulcer, and was instructed to go to the ED for further evaluation. Daughter also states patient had a recent open heart surgery appears to be CABG procedure. Patient was seen and evaluated in the ED, laboratory data shows WBC 19.1, hemoglobin 11.7, hematocrit 35.3, platelets 248, sodium 135, potassium 4.9, BUN 23, creatinine 1.57, glucose 167, lactic acid 2.4 trending down to 1.8, calcium 9.6, lipase 46, troponin < 3, blood pressure 144/74, heart rate 85, temperature 99.5 F, O2 saturation 91% on oxygen. Foot CT showed irregular sclerosis of the medial hallux sesamoid; imaging findings may be degenerative however superimposed osteomyelitis given plantar soft tissue ulceration not excluded. Patient was started on IV antibiotic regimen vancomycin, please see medication orders section in the computer. On my assessment, daughter at bedside, patient denied chest pain, headache, dizziness, diaphoresis, currently on oxygen, no diarrhea, nausea, vomiting, no chills. Past Medical History See H&P Past Surgical History See H&P Family History: Diabetes mellitus G8 MOTHER, G8 FATHER, Allergies: Coded Allergies: NO KNOWN ALLERGIES (Unverified , 11/10/24) Home Meds Reported Medications Metformin Hydrochloride (Metformin Hcl) 1,000 Mg Tab, 1 TAB PO BIDWM for DIABETES TAKE WITH MORNING AND EVENING MEALS 01/09/25 Insulin Glargine (Lantus Solostar) 100 Unit/Ml Inj, 30 UNIT SC QPM for DIABETES 01/09/25 Gabapentin (Gabapentin) 100 Mg Cap, 1 CAP PO HS for NEUROPATHY 01/09/25 Ferrous Sulfate Dried (Iron High Potency) 65 Mg Tab, 1 TAB PO BID for SUPPLEMENT 01/09/25 Cholecalciferol (Vitamin D3) 1,000 Unit Cap, 1 CAP PO DAILY for SUPPLEMENT 01/09/25 Amlodipine Besylate (Amlodipine Besylate) 10 Mg Tab, 1 TAB PO QAM for HYPERTENSION 01/09/25 Aspirin (Aspirin Low Dose) 81 Mg Chw, 1 TAB PO DAILY for HEART ATTACK PREVENTION 10/15/23 Insulin Glargine (Lantus Solostar) 100 Unit/Ml Inj, 20 UNIT SC QAM for DIABETES 10/15/23 Atorvastatin Calcium (Lipitor) 40 Mg Tab, 1 TAB PO HS for HIGH CHOLESTEROL 10/15/23 Losartan Potassium (Losartan Potassium) 100 Mg Tab, 1 TAB PO QAM for HYP ERTENSION 10/15/23 Glimepiride (Glimepiride) 4 Mg Tab, 1 TAB PO BID for DIABETES 10/15/23 Current Medications Current Medications Medications (Trade) Dose Ordered Sig/Ankur Route PRN Reason Start Time Stop Time Status Last Admin Clopidogrel Bisulfate (Plavix) 75 mg DAILY PO 04/25/25 10:00 04/25/25 09:47 Vital Signs Vital Signs Date Time Temp Pulse Resp B/P (MAP) Pulse Ox O2 Delivery O2 Flow Rate FiO2 04/25/25 10:48 80 134/74 04/25/25 09:00 97.9 18 98 97.9 04/25/25 08:00 Nasal Cannula* 3 32 Physical Exam Dermatological: Skin is dry with mild erythema and some maceration around the wound site No gross deformities noted Mild non-pitting edema present bilaterally Medial hallux eschar Vascular: Dorsalis pedis and posterior tibial pulses are 1+ bilaterally Capillary refill is under 2 seconds Skin temperature is warm bilaterally Neurologic: Protective sensation is absent on the plantar forefoot bilaterally Monofilament testing reveals decreased sensation in multiple plantar sites Musculoskeletal: Range of motion at the ankle and MTP joints is within normal limits. Strength is 5/5 in all tested muscle groups. Gait is antalgic due to offloading of the affected limb. Labs/Diagnostic Data Labs Test 04/25/25 11:03 04/25/25 08:58 04/24/25 08:48 04/23/25 06:11 Range/Units POC Glucose 321 H 70-106 mg/dl Creatinine 1.33 H 0.700-1.30 mg/dL Glomerular Filtration Rate Calc 57 >90 mL/min Vancomycin Level Trough 16.5 H 5-10 ug/mL White Blood Count 8.0 4.4-10.8 10^3/uL Red Blood Count 3.76 L 4.5-5.90 10^6/uL Hemoglobin 10.6 L 13.5-17.5 g/dL Hematocrit 31.7 L 41.0-53.0 % Mean Corpuscular Volume 84.2 80.0-100.0 fL Mean Corpuscular Hemoglobin 28.3 28.0-32.0 pg Mean Corpuscular Hemoglobin Concent 33.5 32.0-36.0 g/dL Red Cell Distribution Width 15.6 H 11.8-14.3 % Platelet Count 235 140-450 10^3/uL Mean Platelet Volume 7.4 6.9-10.8 fL Neutrophils (%) (Auto) 62.2 37.0-80.0 % Lymphocytes (%) (Auto) 22.1 10.0-50.0 % Monocytes (%) (Auto) 11.0 0.0-12.0 % Eosinophils (%) (Auto) 4.5 0.0-7.0 % Basophils (%) (Auto) 0.2 0.0-2.0 % Neutrophils # (Auto) 5.0 1.6-8.6 10 ^3/uL Lymphocytes # (Auto) 1.8 0.4-5.4 10 ^3/uL Monocytes # (Auto) 0.9 0-1.3 10 ^3/uL Eosinophils # (Auto) 0.4 0-0.8 10 ^3/uL Basophils # (Auto) 0 0-0.2 10 ^3/uL Nucleated Red Blood Cells 0.1 % Prothrombin Time 11.4 9.3-11.8 sec Prothrombin Time INR 1.08 0.9-1.15 Activated Partial Thromboplast Time 29.1 24.5-34.5 SEC Sodium Level 138 136-145 mmol/L Potassium Level 4.0 3.5-5.1 mmol/L Chloride Level 102 98-107 mmol/L Carbon Dioxide Level 26 20-31 mmol/L Anion Gap 10 5-15 Blood Urea Nitrogen 15 9-23 mg/dL BUN/Creatinine Ratio 12.2 10.0-20.0 Serum Glucose 185 H 74-106 mg/dL Calcium Level 8.9 8.7-10.4 mg/dL Random Vancomycin Level 16.1 H 5-10 ug/mL Test 04/21/25 04:32 04/20/25 20:35 04/20/25 19:19 Range/Units Total Bilirubin 0.7 0.2-1.0 mg/dL Aspartate Amino Transferase (AST) 17 13-40 U/L Alanine Aminotransferase (ALT) 13 7-40 U/L Alkaline Phosphatase 94 46-116 U/L Total Protein 7.0 5.7-8.2 g/dL Albumin 3.9 3.2-4.8 g/dL Lactic Acid Level 1.8 0.4-2.0 mmol/L Troponin I High Sensitivity < 3 L </=54 ng/L B-Type Natriuretic Peptide 149.96 0-100 pg/mL Lipase 46 12-53 U/L Microbiology Date/Time Source Procedure Growth Status 04/20/25 20:35 Blood Blood Culture - Preliminary NO GROWTH AFTER 72 HOURS OF INCUBATION. Resulted Problems(with codes): (1) Gastroenteritis (2) Suspected COVID-19 virus infection (3) DKA (diabetic ketoacidosis) (4) E. coli sepsis (5) Thyroid nodule (6) Abnormal finding on radiology exam (7) Hyperbilirubinemia (8) Elevated LFTs (9) Acute cholecystitis (10) Upper respiratory infection (11) Nonspecific chest pain (12) Severe muscle deconditioning (13) Suspected cerebrovascular accident (CVA) (14) Unsteady gait (15) Cholelithiasis (16) Left leg pain (17) Left against medical advice (18) Acute bronchitis due to infection (19) Fever (20) Weakness (21) Metabolic encephalopathy (22) Sepsis, unspecified organism (23) Disorientation, unspecified (24) Hyponatremia (25) Diabetes mellitus with hyperglycemia (26) Sepsis (27) Hypertension (28) Pneumonia (29) Pyelonephritis (30) Altered mental status (31) Elevated liver enzymes (32) Fever, unspecified (33) Diabetes mellitus with hypoglycemia (34) Electrolyte imbalance (35) Acute exacerbation of congestive heart failure (36) Edema (37) Hypoglycemia (38) Pleural effusion (39) Lung consolidation (40) Mediastinitis (41) UTI (urinary tract infection) (42) Bilateral pneumonia (43) Gram-negative bacteremia (44) Leukocytosis (45) Diabetic foot (46) Anemia (47) Generalized weakness (48) Leukocytosis, unspecified (49) Anemia, unspecified (50) Diabetes mellitus with foot ulcer (51) Acute renal injury Plan/Recommendation ASSESSMENT: Patient is a 70 year old seen on the floor for a worsening ulcer PLAN: - The patients chart was reviewed, clinical findings were discussed with the patient, the etiologies of the conditions were discussed in detail, and a treatment plan was agreed to at this time, with both oral and written instructions provided. 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 The patient was given the phone number to the clinic and was told how to make contact with the clinic should any concerns or questions arise. Patient understands that if any questions or concerns arise prior to the next appointment, we should be contacted immediately. FOLLOW-UP: Continue to follow while inpatient Plan discussed with: Patient Visit Coding Podiatry Date of Service if different f: Apr 25, 2025 Billing Provider: CHRISTI WHITE DPM Podiatry Common Visit Codes: CONSULT ONLY Podiatry Consult Codes: [id number]/OBS [id number] NEW/EST HI 80 CHRISTI WHITE DPM Apr 25, 2025 12:19
[2025-04-25] MEDS: LIDOCAINE 1% (LOCAL ANESTH.) PF 5ml SDV ID ONE (15:37)
[2025-04-25] MEDS: SODIUM CHLOR 0.9% PF (SALINE LOCK) 10ML VIAL/SYR IV SCH (21:48)
[2025-04-25] MEDS: HYDROcodone-ACET 5/325MG TAB PO PRN (22:02)
[2025-04-26] VITALS (8 sets, daily range): BP systolic 107–155; BP diastolic 66–83; PULSE 66–104; RESP 16–18; TEMP 97.6–98.9; O2SAT 93–98
--- NOTE | 2025-04-26 11:38 | DVHPN2 ---
Reviewed: Care Plan, H&P, Labs, Medications, Previous Orders, Radiology Changes from previous H/P or p: No Changes Eyes: No Pain, No Vision change, No Conjunctivae inflammation, No Eyelid inflammation, No Other, No Redness ENT: No Ear pain, No Ear discharge, No Nose pain, No Nose discharge, No Nose congestion, No Mouth pain, No Mouth swelling, No Throat pain, No Throat swelling, No Other Cardiovascular: No Chest Pain, No Palpitations, No Orthopnea, No Paroxysmal Noc. Dyspnea, No Edema, No Lt Headedness, No Other Respiratory: No Cough, No Dry, No Shortness of breath, No SOB with excertion, No Wheezing, No Hemoptysis, No Pleuritic Pain, No Sputum, No Other Gastrointestinal: No Nausea, No Vomiting, No Abdominal Pain, No Diarrhea, No Constipation, No Melena, No Hematochezia, No Other Genitourinary: No Dysuria, No Frequency, No Incontinence, No Hematuria, No Retention, No Other Musculoskeletal: other (Right foot pain); No neck pain, No shoulder pain, No arm pain, No back pain, No hand pain, No leg pain, No foot pain Skin: No Rash, No Lesions, No Jaundice, No Bruising, No Other Objective Vitals Vital Signs Date Time Temp Pulse Resp B/P (MAP) Pulse Ox O2 Delivery O2 Flow Rate FiO2 04/26/25 10:26 76 139/79 04/26/25 05:00 97.6 17 98 97.6 04/25/25 20:00 Nasal Cannula* 2 28 Intake/Output Intake and Output 04/26/25 07:00 Intake Total 1420 ml Output Total 300 ml Balance 1120 ml Intake Oral 1020 ml IV Total 400 ml Output Urine Total 300 ml # Voids 4 # Bowel Movements 1 Medications Current Medications Medications Dose Ordered Sig/Ankur Route Start Time Stop Time Status Last Admin Dose Admin Vancomycin HCl 0 ml @ 0 mls/hr PER PHARMACY IV 04/20/25 21:30 Piperacillin Sod/ Tazobactam Sod 100 ml @ 25 mls/hr Q8HR IV 04/21/25 06:00 04/26/25 05:36 25 MLS/HR Amlodipine Besylate 10 mg DAILY PO 04/21/25 10:00 04/26/25 10:26 10 MG Clonidine HCl 0.1 mg Q4HP PRN PO 04/20/25 21:30 Metoprolol Tartrate 25 mg BID PO 04/20/25 22:00 04/26/25 10:26 25 MG Gabapentin 100 mg BID PO 04/20/25 22:00 04/26/25 10:25 100 MG Cholecalciferol 1,000 unit DAILY PO 04/21/25 10:00 04/26/25 10:25 1,000 UNIT Diagnostic Test (Pha) 1 strip ACHS 04/20/25 22:00 04/26/25 06:19 1 STRIP Insulin Human Regular HS SC 04/20/25 22:00 04/25/25 21:42 8 UNITS Insulin Human Regular AC SC 04/21/25 07:00 04/26/25 06:21 6 UNITS Dextrose 50 ml UD PRN IV 04/20/25 21:30 Sodium Chloride 1,000 ml @ 60 mls/hr [id number] IV 04/20/25 21:30 04/25/25 18:13 60 MLS/HR Acetaminophen/ Hydrocodone Bitart 1 tab Q4HP PRN PO 04/20/25 21:30 04/25/25 22:02 1 TAB Ondansetron HCl 4 mg Q4HP PRN IV 04/20/25 21:30 Docusate Sodium 100 mg BIDPRN PRN PO 04/20/25 21:30 Acetaminophen 650 mg Q6HP PRN PO 04/20/25 21:30 Aspirin 81 mg DAILY PO 04/21/25 10:00 04/26/25 10:26 81 MG Nitroglycerin 0.4 mg Q5MINP PRN SL 04/20/25 22:30 Morphine Sulfate 2 mg Q30M PRN IV 04/20/25 22:30 Atorvastatin Calcium 80 mg HS PO 04/22/25 22:00 04/25/25 21:50 80 MG Vancomycin HCl 100 ml @ 200 mls/hr Q12H IV 04/23/25 10:00 04/26/25 10:13 200 MLS/HR Clopidogrel Bisulfate 75 mg DAILY PO 04/25/25 10:00 04/26/25 10:25 75 MG Sodium Chloride 10 ml QSHIFT@10,22 IV 04/25/25 22:00 04/26/25 10:25 10 ML Laboratory Results Laboratory Tests 04/24/25 08:48 04/26/25 05:49 Microbiology Microbiology Date/Time Source Procedure Growth Status 04/20/25 20:35 Blood Blood Culture - Final NO GROWTH AFTER 5 DAYS OF INCUBATION. Complete Labs and/or images reviewed: Labs reviewed by me, Image(s) reviewed by me Assessment/Plan Assessment/Plan Sepsis secondary to diabetic foot ulcer: Blood cultures negative Nonhealing right foot diabetic ulcer: Wound cultures vancomycin Zosyn podiatry consult for Dr. Mcclure appreciated, advised no surgical intervention Uncontrolled diabetes: Insulin sliding scale Severe Peripheral artery disease right lower extremity: Consult for Dr. Zimmer appreciated, status post successful GRANITE CUTTER of right peroneal artery by liner checker Dr. Zimmer, right posterior tibial artery disease is completely occluded, right anterior tibial artery with moderate disease Chronic anemia Hypertension Hypercholesterolemia CKD Acute Lactic acidosis Patient on home health Time spent 65 minutes Advanced care planning time 20 mts Discharged from [place] [facility] on 04/07/2025,now on [facility] Daughter Clary [phone] at bedside and requesting patient to be discharged home on home health for IV antibiotics Plan discussed with: Patient My Orders Orders - CLARENCE HOUSTON MD Procedure Category Date Status Time * Head Neck Surgeon CONS 04/25/25 Transmitted Consult Refer To Home Health [facility] 04/25/25 In Process 12:36 * Picc Line Consult CONS 04/25/25 Transmitted 12:42 Us Guided Vascular US 04/25/25 Logged Access 15:26 Nursing Protocol Picc [facility] 04/25/25 In Process 15:26 Change Dressing Prn [facility] 04/25/25 In Process 15:26 Sodium Chloride Lock PHA 04/25/25 In Process (Saline Lock Ns) 22:00 Do Not Use Picc For [facility] 04/25/25 In Process Blood Cult 15:26 May Draw Blood From [facility] 04/25/25 In Process Picc 15:26 Ok To Use Picc [facility] 04/25/25 In Process 15:26 Change Picc Dressing [facility] 04/25/25 In Process Q7 Days 15:26 Date of Service: Apr 26, 2025 Billing Provider: CLARENCE HOUSTON MD Common Visit Codes: [id number] CARE 30-74 MIN CLARENCE HOUSTON MD Apr 26, 2025 11:38
[2025-04-27] VITALS (7 sets, daily range): BP systolic 137–158; BP diastolic 67–84; PULSE 71–89; RESP 14–18; TEMP 98.1–98.8; O2SAT 94–97
[2025-04-27 07:26] LABS: Hematocrit 30.2 % (41.0-53.0); Hemoglobin 10.3 g/dL (13.5-17.5); Mean Corpuscular Hemoglobin 28.4 pg (28.0-32.0); Mean Corpuscular Volume 83.1 fL (80.0-100.0); Nucleated Red Blood Cells % 0.0 %
--- NOTE | 2025-04-27 08:35 | DVHPN2 ---
Reviewed: Care Plan, H&P, Labs, Medications, Previous Orders, Radiology Changes from previous H/P or p: No Changes Eyes: No Pain, No Vision change, No Conjunctivae inflammation, No Eyelid inflammation, No Other, No Redness ENT: No Ear pain, No Ear discharge, No Nose pain, No Nose discharge, No Nose congestion, No Mouth pain, No Mouth swelling, No Throat pain, No Throat swelling, No Other Cardiovascular: No Chest Pain, No Palpitations, No Orthopnea, No Paroxysmal Noc. Dyspnea, No Edema, No Lt Headedness, No Other Respiratory: No Cough, No Dry, No Shortness of breath, No SOB with excertion, No Wheezing, No Hemoptysis, No Pleuritic Pain, No Sputum, No Other Gastrointestinal: No Nausea, No Vomiting, No Abdominal Pain, No Diarrhea, No Constipation, No Melena, No Hematochezia, No Other Genitourinary: No Dysuria, No Frequency, No Incontinence, No Hematuria, No Retention, No Other Musculoskeletal: other (Right foot pain); No neck pain, No shoulder pain, No arm pain, No back pain, No hand pain, No leg pain, No foot pain Skin: No Rash, No Lesions, No Jaundice, No Bruising, No Other Objective Vitals Vital Signs Date Time Temp Pulse Resp B/P (MAP) Pulse Ox O2 Delivery O2 Flow Rate FiO2 04/27/25 05:00 98.1 79 17 137/79 (98) 96 98.1 04/26/25 20:00 Nasal Cannula* 2 28 Intake/Output Intake and Output 04/27/25 07:00 Intake Total 2112 ml Output Total 2200 ml Balance -88 ml Intake Oral 1580 ml IV Total 532 ml Output Urine Total 2200 ml Medications Current Medications Medications Dose Ordered Sig/Ankur Route Start Time Stop Time Status Last Admin Dose Admin Vancomycin HCl 0 ml @ 0 mls/hr PER PHARMACY IV 04/20/25 21:30 Piperacillin Sod/ Tazobactam Sod 100 ml @ 25 mls/hr Q8HR IV 04/21/25 06:00 04/27/25 06:23 25 MLS/HR Amlodipine Besylate 10 mg DAILY PO 04/21/25 10:00 04/26/25 10:26 10 MG Clonidine HCl 0.1 mg Q4HP PRN PO 04/20/25 21:30 Metoprolol Tartrate 25 mg BID PO 04/20/25 22:00 04/26/25 22:39 25 MG Gabapentin 100 mg BID PO 04/20/25 22:00 04/26/25 22:38 100 MG Cholecalciferol 1,000 unit DAILY PO 04/21/25 10:00 04/26/25 10: 1,000 UNIT Diagnostic Test (Pha) 1 strip ACHS 04/20/25 22:00 04/27/25 07:06 1 STRIP Insulin Human Regular HS SC 04/20/25 22:00 04/26/25 23:01 8 UNITS Insulin Human Regular AC SC 04/21/25 07:00 04/27/25 07:06 6 UNITS Dextrose 50 ml UD PRN IV 04/20/25 21:30 Sodium Chloride 1,000 ml @ 60 mls/hr [id number] IV 04/20/25 21:30 04/27/25 06:26 60 MLS/HR Acetaminophen/ Hydrocodone Bitart 1 tab Q4HP PRN PO 04/20/25 21:30 04/25/25 22:02 1 TAB Ondansetron HCl 4 mg Q4HP PRN IV 04/20/25 21:30 Docusate Sodium 100 mg BIDPRN PRN PO 04/20/25 21:30 Acetaminophen 650 mg Q6HP PRN PO 04/20/25 21:30 Aspirin 81 mg DAILY PO 04/21/25 10:00 04/26/25 10:26 81 MG Nitroglycerin 0.4 mg Q5MINP PRN SL 04/20/25 22:30 Morphine Sulfate 2 mg Q30M PRN IV 04/20/25 22:30 Atorvastatin Calcium 80 mg HS PO 04/22/25 22:00 04/26/25 22:39 80 MG Vancomycin HCl 100 ml @ 200 mls/hr Q12H IV 04/23/25 10:00 04/26/25 22:00 200 MLS/HR Clopidogrel Bisulfate 75 mg DAILY PO 04/25/25 10:00 04/26/25 10:25 75 MG Sodium Chloride 10 ml QSHIFT@10,22 IV 04/25/25 22:00 04/26/25 22:41 10 ML Laboratory Results Laboratory Tests 04/24/25 08:48 04/27/25 06:04 Microbiology Microbiology Date/Time Source Procedure Growth Status 04/20/25 20:35 Blood Blood Culture - Final NO GROWTH AFTER 5 DAYS OF INCUBATION. Complete Labs and/or images reviewed: Labs reviewed by me, Image(s) reviewed by me Assessment/Plan Assessment/Plan Sepsis secondary to diabetic foot ulcer: Blood cultures negative Nonhealing right foot diabetic ulcer: Wound cultures vancomycin Zosyn podiatry consult for Dr. Mcclure appreciated, advised no surgical intervention Uncontrolled diabetes: Insulin sliding scale Severe Peripheral artery disease right lower extremity: Consult for Dr. Zimmer appreciated, status post successful SUPERVISOR MACHINING of right peroneal artery by electronics mechanic Dr. Zimmer, right posterior tibial artery disease is completely occluded, right anterior tibial artery with moderate disease Chronic anemia Hypertension Hypercholesterolemia CKD Acute Lactic acidosis Patient on home health Time spent 65 minutes Advanced care planning time 20 mts Discharged from [place] [facility] on 04/07/2025,now on [facility] Belia Means [phone] at bedside and requesting patient to be discharged home on home health for IV antibiotics Discharged home on home health for IV antibiotics for one month Plan discussed with: Patient My Orders Orders - CLARENCE HOUSTON MD Procedure Category Date Status Time Refer To Home Health [facility] 04/27/25 In Process 08:30 * Animal Scientist CONS 04/27/25 Verified Consult 08:33 Date of Service: Apr 27, 2025 Billing Provider: CLARENCE HOUSTON MD Common Visit Codes: [id number] INP/OBS CARE(HIGH) CLARENCE HOUSTON MD Apr 27, 2025 08:35
--- NOTE | 2025-04-27 08:41 | DVHDS2 ---
Discharge Summary Date of Admission Apr 20, 2025 at 22:25 Date of Discharge: Apr 27, 2025 Admitting Diagnosis Nonhealing right foot diabetic ulcer Wounds: Nonhealing right foot diabetic ulcer Labs/Diagnostic Data: Laboratory Results Test 04/27/25 07:01 04/27/25 06:04 04/25/25 08:58 04/24/25 08:48 POC Glucose 231 mg/dl (70-106) White Blood Count 8.1 10^3/uL (4.4-10.8) Red Blood Count 3.63 10^6/uL (4.5-5.90) Hemoglobin 10.3 g/dL (13.5-17.5) Hematocrit 30.2 % (41.0-53.0) Mean Corpuscular Volume 83.1 fL (80.0-100.0) Mean Corpuscular Hemoglobin 28.4 pg (28.0-32.0) Mean Corpuscular Hemoglobin Concent 34.2 g/dL (32.0-36.0) Red Cell Distribution Width 15.4 % (11.8-14.3) Platelet Count 225 10^3/uL (140-450) Mean Platelet Volume 7.7 fL (6.9-10.8) Neutrophils (%) (Auto) 69.1 % (37.0-80.0) Lymphocytes (%) (Auto) 15.9 % (10.0-50.0) Monocytes (%) (Auto) 10.2 % (0.0-12.0) Eosinophils (%) (Auto) 4.6 % (0.0-7.0) Basophils (%) (Auto) 0.2 % (0.0-2.0) Neutrophils # (Auto) 5.6 10 ^3/uL (1.6-8.6) Lymphocytes # (Auto) 1.3 10 ^3/uL (0.4-5.4) Monocytes # (Auto) 0.8 10 ^3/uL (0-1.3) Eosinophils # (Auto) 0.4 10 ^3/uL (0-0.8) Basophils # (Auto) 0 10 ^3/uL (0-0.2) Nucleated Red Blood Cells 0.0 % Creatinine 1.28 mg/dL (0.700-1.30) Glomerular Filtration Rate Calc 59 mL/min (>90) Vancomycin Level Trough 16.5 ug/mL (5-10) Prothrombin Time 11.4 sec (9.3-11.8) Prothrombin Time INR 1.08 (0.9-1.15) Activated Partial Thromboplast Time 29.1 SEC (24.5-34.5) Sodium Level 138 mmol/L (136-145) Potassium Level 4.0 mmol/L (3.5-5.1) Chloride Level 102 mmol/L (98-107) Carbon Dioxide Level 26 mmol/L (20-31) Anion Gap 10 (5-15) Blood Urea Nitrogen 15 mg/dL (9-23) BUN/Creatinine Ratio 12.2 (10.0-20.0) Serum Glucose 185 mg/dL (74-106) Calcium Level 8.9 mg/dL (8.7-10.4) Test 04/23/25 06:11 04/21/25 04:32 04/20/25 20:35 04/20/25 19:19 Random Vancomycin Level 16.1 ug/mL (5-10) Total Bilirubin 0.7 mg/dL (0.2-1.0) Aspartate Amino Transferase (AST) 17 U/L (13-40) Alanine Aminotransferase (ALT) 13 U/L (7-40) Alkaline Phosphatase 94 U/L (46-116) Total Protein 7.0 g/dL (5.7-8.2) Albumin 3.9 g/dL (3.2-4.8) Lactic Acid Level 1.8 mmol/L (0.4-2.0) Troponin I High Sensitivity < 3 ng/L (</=54) B-Type Natriuretic Peptide 149.96 pg/mL (0-100) Lipase 46 U/L (12-53) Other Laboratory Tests 04/27/25 06:04 04/24/25 08:48 Brief Hx & Hospital Course: 70-year-old male with a history of diabetes chronic anemia hypertension hypercholesterolemia CKD came in for nonhealing diabetic foot diabetic ulcer. Uncontrolled diabetes treated with the insulin sliding scale patient was found to be in sepsis secondary to diabetic foot ulcer blood cultures negative patient was placed on vancomycin and Zosyn. Ultrasound showed peripheral arterial disease right lower extremity underwent PEDIATRIC DERMATOLOGIST of right peroneal artery by behavior management specialist Dr. Zimmer. Right posterior tibial artery completely occluded and right anterior tibial artery moderate disease. Blood flow has improved significantly after the procedure seen by podiatric Dr. Mcclure, advised no surgical intervention. Advised to continue IV antibiotics. The patient is discharged home on home health for IV antibiotics He will receive vancomycin 1 g IV daily Zosyn 3.375 g IV q.8 hours both for one month by home health Consults/Reason for consult Cardiology Dr. Zimmer Family Services Worker Dr. Mcclure Operations or Procedures Peripheral angiogram and stenting Condition at Discharge: Fair Final Diagnosis/Problems List Sepsis secondary to diabetic foot ulcer: Blood cultures negative Nonhealing right foot diabetic ulcer: Wound cultures vancomycin Zosyn podiatry consult for Dr. Mcclure appreciated, advised no surgical intervention Uncontrolled diabetes: Insulin sliding scale Severe Peripheral artery disease right lower extremity: Consult for Dr. Zimmer appreciated, status post successful PEDIATRIC DERMATOLOGIST of right peroneal artery by behavior management specialist Dr. Zimmer, right posterior tibial artery disease is completely occluded, right anterior tibial artery with moderate disease Chronic anemia Hypertension Hypercholesterolemia CKD Acute Lactic acidosis Discharge Disposition: Home with Health Services Discharge Instruct/Medications Diet: Consistent carbohydrate Activity: Light activity Follow Up/Referral: Follow up with the primary Dr in one week Follow up with the microsoft systems engineer Dr. Lundy in two weeks Follow up With the Cardiology Dr. Zimmer in four weeks Medications: Zosyn Vancomycin To be administered by home health Scheduled Amlodipine Besylate (Amlodipine Besylate), 1 TAB PO QAM, (Reported) Aspirin (Aspirin Low Dose), 1 TAB PO DAILY, (Reported) Atorvastatin Calcium (Lipitor), 1 TAB PO HS, (Reported) Cholecalciferol (Vitamin D3), 1 CAP PO DAILY, (Reported) Ferrous Sulfate Dried (Iron High Potency), 1 TAB PO BID, (Reported) Gabapentin (Gabapentin), 1 CAP PO HS, (Reported) Glimepiride (Glimepiride), 1 TAB PO BID, (Reported) Insulin Glargine (Lantus Solostar), 20 UNIT SC QAM, (Reported) Insulin Glargine (Lantus Solostar), 30 UNIT SC QPM, (Reported) Losartan Potassium (Losartan Potassium), 1 TAB PO QAM, (Reported) Metformin Hydrochloride (Metformin Hcl), 1 TAB PO BIDWM, (Reported) 35 (Time taken for discharge summary 35 minutes) Discharge Statement: "Patient was advised to return to the ER or call 911 if any headaches, dizziness, shortness of breath, chest pain, abdominal pain, bleeding, fevers, or worsening of medical condition. Patient was counseled about treatment plan, medications, possible side effects, patientverbalized understanding. All questions were answered to the best of my ability. This discharge took greater then 30 minutes in planning, reviewing documentation, counseling the patient, and discussing with other team members." ASSESSMENT ASSESSMENT Hospital Course Improved Assessment Sepsis secondary to diabetic foot ulcer: Blood cultures negative Nonhealing right foot diabetic ulcer: Wound cultures vancomycin Zosyn podiatry consult for Dr. Mcclure appreciated, advised no surgical intervention Uncontrolled diabetes: Insulin sliding scale Severe Peripheral artery disease right lower extremity: Consult for Dr. Zimmer appreciated, status post successful PEDIATRIC DERMATOLOGIST of right peroneal artery by behavior management specialist Dr. Zimmer, right posterior tibial artery disease is completely occluded, right anterior tibial artery with moderate disease Chronic anemia Hypertension Hypercholesterolemia CKD Acute Lactic acidosis Date of Service: Apr 27, 2025 Billing Provider: CLARENCE HOUSTON MD Common Visit Codes: 61346-ERR/OBS DISCH DAY >30min CLARENCE HOUSTON MD Apr 27, 2025 08:41
== END 2025-04-27 19:25 | disposition home health service (06) | DRG 854 ==
LOC: EDBD 18:34 → ER 18:34 → OVERFLOW 22:25 → WEST WING 04-21 13:00 → TELE-WESTW 04-23 03:29
PROVIDERS: ADMIT Family Medicine; ATTEND Family Medicine
PROC: 047T3ZZ Dilation of Right Peroneal Artery, Percutaneous Approach (ICD-10-PCS; principal; 2025-04-24)
PROC: B41GYZZ Fluoroscopy of Left Lower Extremity Arteries using Other Contrast (ICD-10-PCS; 2025-04-24)
PROC: B41FYZZ Fluoroscopy of Right Lower Extremity Arteries using Other Contrast (ICD-10-PCS; 2025-04-24)
PROC: 02HV33Z Insertion of Infusion Device into Superior Vena Cava, Percutaneous Approach (ICD-10-PCS; 2025-04-25)
PROC: B548ZZA Ultrasonography of Superior Vena Cava, Guidance (ICD-10-PCS; 2025-04-25)
DX: A41.9 Sepsis, unspecified organism (principal); E87.21 Acute metabolic acidosis; N17.9 Acute kidney failure, unspecified; I50.32 Chronic diastolic (congestive) heart failure; I13.0 Hypertensive heart and chronic kidney disease with heart failure and stage 1 through stage 4 chronic kidney disease, or unspecified chronic kidney disease; E11.621 Type 2 diabetes mellitus with foot ulcer; E11.51 Type 2 diabetes mellitus with diabetic peripheral angiopathy without gangrene; D64.9 Anemia, unspecified; E78.00 Pure hypercholesterolemia, unspecified; N18.9 Chronic kidney disease, unspecified; E66.01 Morbid (severe) obesity due to excess calories; E11.22 Type 2 diabetes mellitus with diabetic chronic kidney disease; I27.20 Pulmonary hypertension, unspecified; L97.519 Non-pressure chronic ulcer of other part of right foot with unspecified severity; I25.10 Atherosclerotic heart disease of native coronary artery without angina pectoris; Z95.1 Presence of aortocoronary bypass graft; Z79.84 Long term (current) use of oral hypoglycemic drugs; Z79.82 Long term (current) use of aspirin; Z79.4 Long term (current) use of insulin; Z83.3 Family history of diabetes mellitus; Z86.73 Personal history of transient ischemic attack (TIA), and cerebral infarction without residual deficits; Z68.38 Body mass index [BMI] 38.0-38.9, adult
CPT/HCPCS: 36415; 36569; 37228; 73700; 75716; 80048; 80053; 80202; 82565; 82962; 83605; 83690; 83880; 84484; 85025; 85610; 85730; 87040; 93926; 99152; C1725; G0378; J1815; J2250; J2543; Q9967

== ENCOUNTER 2025-05-05 07:30 | Outpatient (CLI) | payer OTHER, MEDICAID ==
[2025-05-05 08:25] LABS: Hematocrit 27.6 % (41.0-53.0); Hemoglobin 9.4 g/dL (13.5-17.5); Mean Corpuscular Hemoglobin 28.6 pg (28.0-32.0); Mean Corpuscular Volume 83.5 fL (80.0-100.0); Nucleated Red Blood Cells % 0.0 %
[2025-05-05 08:27] LABS: Alanine Aminotransferase 14 U/L (7-40); Albumin 3.5 g/dL (3.2-4.8); Alkaline Phosphatase 103 U/L (46-116); Anion Gap 12 (5-15); BUN/Creatinine Ratio 15.1 (10.0-20.0); Carbon Dioxide 26 mmol/L (20-31); Potassium 4.2 mmol/L (3.5-5.1); Sodium 145 mmol/L (136-145); Total Protein 6.2 g/dL (5.7-8.2)
[2025-05-05 08:34] LABS: Bilirubin, Total 0.2 mg/dL (0.2-1.0); Blood Urea Nitrogen 27 mg/dL (9-23); Calcium 8.4 mg/dL (8.7-10.4); Chloride 107 mmol/L (98-107); Glucose 73 mg/dL (74-106)
== END 2025-05-05 17:00 | disposition home or self-care (01) ==
LOC: LAB 07:30
PROVIDERS: ATTEND Internal Medicine
DX: R68.89 Other general symptoms and signs (principal); R79.9 Abnormal finding of blood chemistry, unspecified; Z51.81 Encounter for therapeutic drug level monitoring
CPT/HCPCS: 36415; 80053; 80202; 85025

== ENCOUNTER 2025-05-13 09:03 | Inpatient (IN) | payer OTHER, MEDICAID ==
[~2025-05-13] VITALS: Ht 165.1 cm; Wt 85.8 kg
[2025-05-13] MEDS: DEXTROSE 50% SYRINGE 50 ML IV ONE (09:39)
[2025-05-13 10:53] LABS: Hematocrit 30.2 % (41.0-53.0); Hemoglobin 10.1 g/dL (13.5-17.5); Mean Corpuscular Hemoglobin 28.7 pg (28.0-32.0); Mean Corpuscular Volume 85.8 fL (80.0-100.0); Nucleated Red Blood Cells % 0.1 %
[2025-05-13 11:25] LABS: Alanine Aminotransferase 18 U/L (7-40); Albumin 4.4 g/dL (3.2-4.8); Alkaline Phosphatase 105 U/L (46-116); Anion Gap 12 (5-15); BUN/Creatinine Ratio 10.5 (10.0-20.0); Blood Urea Nitrogen 17 mg/dL (9-23); Calcium 9.1 mg/dL (8.7-10.4); Carbon Dioxide 23 mmol/L (20-31); Chloride 105 mmol/L (98-107); Potassium 4.4 mmol/L (3.5-5.1); Sodium 140 mmol/L (136-145); Total Protein 7.6 g/dL (5.7-8.2)
[2025-05-13 11:26] LABS: Bilirubin, Total 0.4 mg/dL (0.2-1.0)
[2025-05-13 11:28] LABS: Glucose 117 mg/dL (74-106)
[2025-05-13 11:34] LABS: Lactic Acid w/Reflex 2.3 mmol/L (0.4-2.0)
--- NOTE | 2025-05-13 11:41 | ED.PDOC ---
History of Present Illness HPI Comments 70-year-old male presents to the ER with prior medical history of CKF, diabetes, high lipids, hypertension, UTI, uses 2 L of O2 at home and the chief complaint of hypoglycemia. Patient reports on having had hypoglycemia last night associated with shortness of breath, for which the patient drank Coca-Cola try to bring his blood sugar up. In the ER the patient had a blood sugar of 78 and with satting at 80% with 3L of O2 via NC. Denies any other symptoms at this time. Denies chills, fever, N/V/D, CP. No other associated symptoms, modifiers, recent injuries or sick contacts present at this time. Chief Complaint: Hypoglycemia Time Seen by MD: 11:10 Primary Care Provider: UNKNOWN Reviewed Notes: Nurses Notes, Medications, Allergies Allergies: Coded Allergies: NO KNOWN ALLERGIES (Unverified , 11/10/24) Home Meds Reported Medications Metformin Hydrochloride (Metformin Hcl) 1,000 Mg Tab, 1 TAB PO BIDWM for DIABETES TAKE WITH MORNING AND EVENING MEALS 01/09/25 Insulin Glargine (Lantus Solostar) 100 Unit/Ml Inj, 30 UNIT SC QPM for DIABETES 01/09/25 Gabapentin (Gabapentin) 100 Mg Cap, 1 CAP PO HS for NEUROPATHY 01/09/25 Ferrous Sulfate Dried (Iron High Potency) 65 Mg Tab, 1 TAB PO BID for SUPPLEMENT 01/09/25 Cholecalciferol (Vitamin D3) 1,000 Unit Cap, 1 CAP PO DAILY for SUPPLEMENT 01/09/25 Amlodipine Besylate (Amlodipine Besylate) 10 Mg Tab, 1 TAB PO QAM for HYPERTENSION 01/09/25 Aspirin (Aspirin Low Dose) 81 Mg Chw, 1 TAB PO DAILY for HEART ATTACK PREVENTION 10/15/23 Insulin Glargine (Lantus Solostar) 100 Unit/Ml Inj, 20 UNIT SC QAM for DIABETES 10/15/23 Atorvastatin Calcium (Lipitor) 40 Mg Tab, 1 TAB PO HS for HIGH CHOLESTEROL 10/15/23 Losartan Potassium (Losartan Potassium) 100 Mg Tab, 1 TAB PO QAM for HYPERTENSION 10/15/23 Glimepiride (Glimepiride) 4 Mg Tab, 1 TAB PO BID for DIABETES 10/15/23 Information Source: Patient Mode of Arrival: EMS Severity: Moderate Timing: Hours Duration: Since onset, Hours Prehospital treatment: None Past Medical History PAST MEDICAL HISTORY: CKF, DM, High Lipids, HTN, UTI'S Past Medical History (Other): Uses 2 L of O2 at home Surgical History: Denies all surgeries Family History Family History: Reviewed,noncontributory to illness, Unknown Social History Smoker: Non-Smoker Alcohol: Denies ETOH Use Drugs: Denies Drug Use Lives In: Home Constitutional: denies: chills, diaphoresis, fatigue, fever, malaise, sweats, weakness, others EENTM: denies: blurred vision, double vision, ear bleeding, ear discharge, ear drainage, ear pain, ear ringing, eye pain, eye redness, hearing loss, mouth pain, mouth swelling, nasal discharge, nose bleeding, nose congestion, nose pain, photophobia, tearing, throat pain, throat swelling, voice changes, others Respiratory: reports: shortness of breath; denies: cough, hemoptysis, orthopnea, SOB at rest, SOB with excertion, stridor, wheezing, others Cardiovascular: denies: chest pain, dizzy spells, diaphoresis, Dyspnea on exertion, edema, irregular heart beat, left arm pain, lightheadedness, palpitations, PND, syncope, others Gastrointestinal: denies: abdomen distended, abdominal pain, blood streaked bowels, constipated, diarrhea, dysphagia, difficulty swallowing, hematemesis, melena, nausea, poor appetite, poor fluid intake, rectal bleeding, rectal pain, vomiting, others Genitourinary: denies: burning, dysuria, flank pain, frequency, hematuria, incontinence, penile discharge, penile sore, pain, testicle pain, testicle swelling, urgency, others Neurological: denies: dizziness, fainting, headache, left sided numbness, left sided weakness, numbness, paresthesia, pre-existing deficit, right sided numbness, right sided weakness, seizure, speech problems, tingling, tremors, weakness, others Musculoskeletal: denies: back pain, gout, joint pain, joint swelling, muscle pain, muscle stiffness, neck pain, others Integumetry: denies: bruises, change in color, change in hair/nails, dryness, laceration, lesions, lumps, rash, wounds, others Allergic/Immunocompromised: denies: Difficulty Healing, Frequent Infections, Hives, Itching, others Hematologic/Lymphatic: denies: anemia, blood clots, easy bleeding, easy bruising, swollen glands, others Endocrine: reports: others (Hypoglycemia); denies: excessive hunger, excessive sweating, excessive thirst, excessive urination, flushing, intolerance to cold, intolerance to heat, unexplained weight gain, unexplained weight loss Psychiatric: denies: anxiety, bipolar disorder, depression, hopeless, panic disorder, schizophrenia, sleepless, suicidal, others All Other Systems: Reviewed and Negative Physical Exam Exam Comments Tachycardic, tachypneic, coarse breath sounds, pale General Appearance: No Apparent Distress, Normal HEENT: Normal ENT Inspection, Pharynx Normal, TMs Normal Neck: Full Range of Motion, Non-Tender, Normal, Normal Inspection Respiratory: Chest Non-Tender, Lungs Clear, No Accessory Muscle Use, No Respiratory Distress, Normal Breath Sounds Cardiovascular: No Edema, No JVD, No Murmur, No Gallop, Normal Peripheral Pulses, Regular Rate/Rhythm Breast Exam: Deferred Gastrointestinal: No Organomegaly, Non Tender, No Pulsatile Mass, Normal Bowel Sounds, Soft Genitalia: Deferred Pelvic: Deferred Rectal: Deferred Extremities: No calf tenderness, Normal capillary refill, Normal inspection, Normal range of motion, Non-tender, No pedal edema Musculoskeletal : Apperance: Normal Neurologic: Alert, 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 Was a procedure done?: No Differential Dx Considerations may include: see mdm X-Ray, Labs, Meds, VS Vital Signs Date Time Temp Pulse Resp B/P (MAP) Pulse Ox O2 Delivery O2 Flow Rate FiO2 05/13/25 11:27 97.8 79 16 144/51 (82) 87 97.8 05/13/25 11:27 79 16 87 Nasal Cannula 05/13/25 09:34 98.9 73 24 155/71 92 98.9 Lab Test 05/13/25 12:55 05/13/25 12:45 05/13/25 09:52 Range/Units POC Glucose 110 H 70-106 mg/dl Lactic Acid Level Pending 2.3 *H 0.4-2.0 mmol/L White Blood Count 10.8 4.4-10.8 10^3/uL Red Blood Count 3.51 L 4.5-5.90 10^6/uL Hemoglobin 10.1 L 13.5-17.5 g/dL Hematocrit 30.2 L 41.0-53.0 % Mean Corpuscular Volume 85.8 80.0-100.0 fL Mean Corpuscular Hemoglobin 28.7 28.0-32.0 pg Mean Corpuscular Hemoglobin Concent 33.4 32.0-36.0 g/dL Red Cell Distribution Width 17.0 H 11.8-14.3 % Platelet Count 259 140-450 10^3/uL Mean Platelet Volume 7.8 6.9-10.8 fL Neutrophils (%) (Auto) 74.4 37.0-80.0 % Lymphocytes (%) (Auto) 13.8 10.0-50.0 % Monocytes (%) (Auto) 9.1 0.0-12.0 % Eosinophils (%) (Auto) 2.5 0.0-7.0 % Basophils (%) (Auto) 0.2 0.0-2.0 % Neutrophils # (Auto) 8.0 1.6-8.6 10 ^3/uL Lymphocytes # (Auto) 1.5 0.4-5.4 10 ^3/uL Monocytes # (Auto) 1.0 0-1.3 10 ^3/uL Eosinophils # (Auto) 0.3 0-0.8 10 ^3/uL Basophils # (Auto) 0 0-0.2 10 ^3/uL Nucleated Red Blood Cells 0.1 % Sodium Level 140 136-145 mmol/L Potassium Level 4.4 3.5-5.1 mmol/L Chloride Level 105 98-107 mmol/L Carbon Dioxide Level 23 20-31 mmol/L Anion Gap 12 5-15 Blood Urea Nitrogen 17 9-23 mg/dL Creatinine 1.62 H 0.700-1.30 mg/dL Glomerular Filtration Rate Calc 45 >90 mL/min BUN/Creatinine Ratio 10.5 10.0-20.0 Serum Glucose 117 H 74-106 mg/dL Calcium Level 9.1 8.7-10.4 mg/dL Total Bilirubin 0.4 0.2-1.0 mg/dL Aspartate Amino Transferase (AST) 22 13-40 U/L Alanine Aminotransferase (ALT) 18 7-40 U/L Alkaline Phosphatase 105 46-116 U/L Total Protein 7.6 5.7-8.2 g/dL Albumin 4.4 3.2-4.8 g/dL Time of 1ST Reevaluation: 11:40 Reevaluation 1ST: Unchanged Patient Education/Counseling: Diagnosis, Treatment, Prognosis Family Education/Counseling: No Family Present SEPSIS Sepsis Screen Date sepsis recognized/suspect: May 13, 2025 Time Sepsis recognized/suspect: 804 Recent Procedure: No On Antibiotic Therapy: Yes Respiratory Rate >20: No Heart Rate >90: No Temp<36 C (96.8 F) or >38.3 C: No SBP <90 or MAP <65 mmHG: No New Acute Mental Status Change: No Is the patient on CPAP, BIPAP,: No Physician Orders Urinalysis (05/13/25 09:39) Blood Culture (05/13/25 09:39) Lactic Acid W/ Reflex Order (05/13/25 11:40) Chest Portable (05/13/25 11:40) Vital Signs Date Time Temp Pulse Resp B/P (MAP) Pulse Ox O2 Delivery O2 Flow Rate FiO2 05/13/25 11:27 97.8 79 16 144/51 (82) 87 97.8 05/13/25 11:27 79 16 87 Nasal Cannula 05/13/25 09:34 98.9 73 24 155/71 92 98.9 Laboratory Tests Test 05/13/25 09:52 05/13/25 12:45 Lactic Acid Level 2.3 mmol/L (0.4-2.0) *H Pending White Blood Count 10.8 10^3/uL (4.4-10.8) Departure 1 Departure Time of Disposition: 13:57 (MEDICAL DECISION MAKING (HIGH COMPLEXITY [id number]):The patient is a 70-year-old male with a significant medical history including HTN, HLD, CHF, COPD, DM2, and chronic oxygen dependence (2 L NC at baseline) who presents with worsening shortness of breath and recurrent hypoglycemia. His presentation represents a high-risk, potentially life- threatening condition requiring critical carelevel evaluation and management.Data Reviewed / Independent Interpretation:I independently reviewed all diagnostic studies.CBC shows a hemoglobin of 10.1, consistent with chronic anemia but without acute worsening.BMP notable for creatinine 1.62, concerning for acute kidney injury versus chronic kidney disease, contributing to impaired clearance of hypoglycemic agents.Lactic acid 2.3, mildly elevated, suggesting early hypoperfusion or increased work of breathing.EKG independently interpreted by me and is nonischemic, without STEMI, arrhythmia, or conduction abnormality.Chest X-ray independently reviewed and shows pleural effusions, consistent with volume overload and possible acute decompensated heart failure.Clinical evaluation upon arrival revealed oxygen saturation of 84% on his baseline 2 L nasal cannula. I increased oxygen to 5 L, improving saturation to 92%, but he remains at risk for respiratory failure.Assessment, Differential & Management:Differential diagnoses include acute decompensated heart failure, COPD exacerbation, pneumonia, pulmonary edema, pleural effusionrelated hypoxia, hypoglycemia secondary to impaired renal function, medication misdosing, sepsis, metabolic encephalopathy, and pulmonary embolism.The combination of worsening shortness of breath, hypoxia below baseline despite supplemental oxygen, pleural effusions, elevated lactate, and recurrent hypoglycemia significantly increases risk for cardiopulmonary and metabolic decompensation. His recurrent hypoglycemia in the setting of impaired kidney function suggests decreased clearance of insulin or oral hypoglycemics, further increasing risk of instability.Management included:Escalation of oxygen therapyFrequent reassessment of respiratory status and work of breathingTreatment and monitoring of recurrent hypoglycemia with glucose replacementMonitoring for progression toward respiratory failureEvaluation of possible acute CHF exacerbationClose hemodynamic monitoring due to risk of deteriorationGiven the patients high-risk comorbidity profile, acute hypoxic respiratory failure, and metabolic instability, inpatient admission is medically necessary for further treatment, monitoring, and evaluation. The admitting hospitalist service has been contacted and agrees with admission.CRITICAL CARE TIME: 39 MINUTESA total of 39 minutes of critical care time was provided, exclusive of separately billable procedures. Critical care was necessary due to the immediate risk of life-threatening deterioration from acute hypoxic respiratory failure, recurrent hypoglycemia, pleural effusions, and possible heart failure exacerbation.Critical care activities included:Continuous respiratory and cardiac monitoringEscalation and titration of supplemental [id number] reassessment of mental status and respiratory effortManagement of recurrent hypoglycemiaIndependent interpretation of EKG, chest X-ray, and laboratory studiesFormulation and adjustment of acute cardiopulmonary care planCoordination with nursing staff and the hospital admitting teamHigh-intensity medical decision making throughout the patients ED courseThe patient was at high risk for sudden respiratory or metabolic collapse, necessitating critical care intervention.) Impression: Primary Impression: Recurrent severe hypoglycemia Additional Impressions: Near syncope Acute dyspnea Acute and chronic respiratory failure Hypoxia Disposition: ADMITTED INPATIENT Admit to: Tele Condition: Guarded Critical Care Note Critical Care Time?: Yes Stability Stability form required: No I personally scribed for JEWEL FUNES MD ([email or web address]) on 05/13/25 at 11:41. Electronically submitted by Jose Benavidez ([email or web address]). JEWEL FUNES MD May 13, 2025 11:41
[2025-05-13] MEDS: DEXTROSE (50%) 50ML SYRG IV ONE (12:15)
--- NOTE | 2025-05-13 12:16 | DVH ---
CLINICAL HISTORY: sob TECHNIQUE: Single view of the chest was obtained. COMPARISON: XY CHEST PORTABLE on DOS: 02/15/25, XY CHEST XRAY 1 VIEW on DOS: 02/14/25, XY CHEST PORTABLE on DOS: 02/14/25, XY CHEST PORTABLE on DOS: 02/07/25, XY CHEST XRAY 1 VIEW on DOS: 02/01/24 FINDINGS: There are midline sternotomy wires. A right PICC terminates at the cavoatrial junction. The heart size is mildly enlarged with pulmonary vascular congestion. There are left mid and lower lung opacities. IMPRESSION: Pulmonary vascular congestion. Left minimal lung opacities, likely small pleural effusions and atelectasis.
[2025-05-13 13:00] VITALS: PULSE 82; RESP 24; O2SAT 90
[2025-05-13 13:57] LABS: Lactic Acid w/Reflex 3.3 mmol/L (0.4-2.0)
[2025-05-13] MEDS: SODIUM CHLORIDE 0.9% 1,000 ML IV ONE (14:18)
--- NOTE | 2025-05-13 16:55 | DVHHP2 ---
Admitting Diagnosis: Hypoglycemia History of Present Illness 70-year-old male presents to the ER with prior medical history of CKF, diabetes, high lipids, hypertension, UTI, uses 2 L of O2 at home and the chief complaint of hypoglycemia. Patient reports on having had hypoglycemia last night associated with shortness of breath, for which the patient drank Coca-Cola try to bring his blood sugar up. In the ER the patient had a blood sugar of 78 and with satting at 80% with 3L of O2 via NC. Denies any other symptoms at this time. Denies chills, fever, N/V/D, CP. No other associated symptoms, modifiers, recent injuries or sick contacts present at this time. PAST MEDICAL HISTORY: CKF, DM, High Lipids, HTN, UTI'S Past Medical History (Other): Uses 2 L of O2 at home Surgical History: Denies all surgeries Family History Family History: Reviewed,noncontributory to illness, Unknown Social History Smoker: Non-Smoker Alcohol: Denies ETOH Use Drugs: Denies Drug Use Lives In: Home Patient Family History: Diabetes mellitus G8 MOTHER, G8 FATHER, Allergies: Coded Allergies: NO KNOWN ALLERGIES (Unverified , 11/10/24) Home Meds Reported Medications Metformin Hydrochloride (Metformin Hcl) 1,000 Mg Tab, 1 TAB PO BIDWM for DIABETES TAKE WITH MORNING AND EVENING MEALS 01/09/25 Insulin Glargine (Lantus Solostar) 100 Unit/Ml Inj, 30 UNIT SC QPM for DIABETES 01/09/25 Gabapentin (Gabapentin) 100 Mg Cap, 1 CAP PO HS for NEUROPATHY 01/09/25 Ferrous Sulfate Dried (Iron High Potency) 65 Mg Tab, 1 TAB PO BID for SUPPLEMENT 01/09/25 Cholecalciferol (Vitamin D3) 1,000 Unit Cap, 1 CAP PO DAILY for SUPPLEMENT 01/09/25 Amlodipine Besylate (Amlodipine Besylate) 10 Mg Tab, 1 TAB PO QAM for HYPERTENSION 01/09/25 Aspirin (Aspirin Low Dose) 81 Mg Chw, 1 TAB PO DAILY for HEART ATTACK PREVENTION 10/15/23 Insulin Glargine (Lantus Solostar) 100 Unit/Ml Inj, 20 UNIT SC QAM for DIABETES 10/15/23 Atorvastatin Calcium (Lipitor) 40 Mg Tab, 1 TAB PO HS for HIGH CHOLESTEROL 10/15/23 Losartan Potassium (Losartan Potassium) 100 Mg Tab, 1 TAB PO QAM for HYPERTENSION 10/15/23 Glimepiride (Glimepiride) 4 Mg Tab, 1 TAB PO BID for DIABETES 10/15/23 Current Medications Current Medications Medications (Trade) Dose Ordered Sig/Ankur Route PRN Reason Start Time Stop Time Status Last Admin Furosemide (Lasix Injection) 40 mg BIDD IV 05/13/25 18:00 Gabapentin (Neurontin Capsule) 100 mg HS PO 05/13/25 22:00 Amlodipine Besylate (Norvasc Tablet) 10 mg QAM PO 05/14/25 07:00 Aspirin 81 mg DAILY PO 05/14/25 10:00 Atorvastatin Calcium (Lipitor) 40 mg HS PO 05/13/25 22:00 Cholecalciferol (Vitamin D3 Tablet) 1,000 unit DAILY PO 05/14/25 10:00 Insulin Glargine (Lantus) 10 units QAM SC 05/14/25 07:00 Insulin Glargine (Lantus) 15 units HS SC 05/13/25 22:00 Diagnostic Test (Pha) (Accu-Chek Comfort Curve T) 1 strip ACHS 05/13/25 17:00 Insulin Human Regular (InsuLIN R) ACHS SC 05/13/25 17:00 Dextrose 50 ml UD PRN IV Blood Sugar LESS THAN 60 05/13/25 17:00 Sodium Chloride (Saline Lock Ns) 10 ml Q8HR IV 05/13/25 22:00 Docusate Sodium (Colace Capsule) 100 mg BIDPRN PRN PO FOR CONSTIPATION 05/13/25 17:00 Acetaminophen (Tylenol Tablet) 650 mg Q6HP PRN PO PAIN SCALE 1-3 OR TEMP>100.4 05/13/25 17:00 Acetaminophen/ Hydrocodone Bitart ([place] 5/325MG Tab) 1 tab Q4HP PRN PO MODERATE PAIN (4-6 PAIN SCALE) 05/13/25 17:00 Ondansetron HCl (Zofran) 4 mg Q4HP PRN IV NAUSEA / VOMITING 05/13/25 17:00 Vital Signs Vital Signs Date Time Temp Pulse Resp B/P (MAP) Pulse Ox O2 Delivery O2 Flow Rate FiO2 05/13/25 13:00 82 24 90 Nasal Cannula* 5 40 05/13/25 13:00 99.7 154/60 (91) 99.7 Physical Exam Generally- 71 years old male, well nourished well developed. Mild distress HEENT-atraumatic normocephalic heart-regular rate and rhythm Lungs decreased breath sounds bilaterally Abdomen-Soft nontender nondistended Musculoskeletal-pedal edema, no cyanosis Neuro-AO x3, no focal deficits SEPSIS Sepsis Screen Date sepsis recognized/suspect: May 13, 2025 Time Sepsis recognized/suspect: 1300 Recent Procedure: No On Antibiotic Therapy: No Respiratory Rate >20: Yes Heart Rate >90: No Temp<36 C (96.8 F) or >38.3 C: No SBP <90 or MAP <65 mmHG: No New Acute Mental Status Change: No Is the patient on CPAP, BIPAP,: No Physician Orders Blood Culture (05/13/25 09:39) Chest Portable (05/13/25 11:40) Troponin-I Hs (05/13/25 16:53) Urinalysis (05/13/25 14:41) Basic Metabolic Panel (05/13/25 16:48) Echo 2d Mode Cardiac Dop (05/13/25 16:48) Furosemide Injection (Lasix Injection) (05/13/25 18:00) *[facility] (05/13/25 16:49) Kidney (05/13/25 16:50) Gabapentin Capsule (Neurontin Capsule) (05/13/25 22:00) Amlodipine Tablet (Norvasc Tablet) (05/14/25 07:00) Aspirin Tablet (05/14/25 10:00) Atorvastatin (Lipitor) (05/13/25 22:00) Cholecalciferol Tablet (Vitamin D3 Table (05/14/25 10:00) Insulin Lantus (Glargine) (Lantus) (05/14/25 07:00) Insulin Lantus (Glargine) (Lantus) (05/13/25 22:00) Glucose Blood (Accu-Chek Comfort Curve T (05/13/25 17:00) Insulin R (Human) (Insulin R) (05/13/25 17:00) Dextrose 50% Syringe (05/13/25 17:00) Admit (05/13/25 16:55) Code Status (05/13/25 16:55) Vital Signs .PER UNIT PROTOCOL (05/13/25 16:55) Review Orders With Adm.Md (05/13/25 16:55) Encourage Activity As Tolerate (05/13/25 16:55) Regular Diet (05/13/25 Dinner) Sodium Chloride Lock (Saline Lock Ns) (05/13/25 22:00) Docusate Sodium Capsule (Colace Capsule) (05/13/25 17:00) Acetaminophen Tablet (Tylenol Tablet) (05/13/25 17:00) Notify Md Of Changes From Base (05/13/25 16:55) Advance Directive (05/13/25 16:55) Patient Condition (05/13/25 16:55) Allergies (05/13/25 16:55) Hydrocodone-Acet 5/325mg Tab ([place] 5/32 (05/13/25 17:00) Ondansetron Hcl (Zofran) (05/13/25 17:00) Daily Weight (05/13/25 16:55) Maintain Fluid Restrictions QSHIFT (05/13/25 16:55) Strict I & O QSHIFT (05/13/25 16:55) Complete Blood Count (05/14/25 05:00) Complete Blood Count (05/15/25 05:00) Complete Blood Count (05/16/25 05:00) Complete Blood Count (05/17/25 05:00) Complete Blood Count (05/18/25 05:00) Comprehensive Metabolic Panel (05/14/25 05:00) Comprehensive Metabolic Panel (05/15/25 05:00) Comprehensive Metabolic Panel (05/16/25 05:00) Comprehensive Metabolic Panel (05/17/25 05:00) Comprehensive Metabolic Panel (05/18/25 05:00) Magnesium (05/14/25 05:00) Magnesium (05/15/25 05:00) Magnesium (05/16/25 05:00) Magnesium (05/17/25 05:00) Magnesium (05/18/25 05:00) Vital Signs Date Time Temp Pulse Resp B/P (MAP) Pulse Ox O2 Delivery O2 Flow Rate FiO2 05/13/25 13:00 82 24 90 Nasal Cannula* 5 40 05/13/25 13:00 99.7 82 24 154/60 (91) 90 99.7 05/13/25 11:27 97.8 79 16 144/51 (82) 87 97.8 05/13/25 11:27 79 16 87 Nasal Cannula 05/13/25 09:34 98.9 73 24 155/71 92 98.9 Laboratory Tests Test 05/13/25 09:52 05/13/25 12:45 Lactic Acid Level 2.3 mmol/L (0.4-2.0) *H 3.3 mmol/L (0.4-2.0) *H White Blood Count 10.8 10^3/uL (4.4-10.8) Medications Medications Dose Ordered Sig/Ankur Route Start Time Stop Time Status Last Admin Dose Admin Sodium Chloride 1,000 ml @ 1,000 mls/hr Q1H ONCE IV 05/13/25 14:15 05/13/25 15:14 DC 05/13/25 14:18 Results Labs Test 05/13/25 16:59 05/13/25 12:55 05/13/25 12:45 05/13/25 09:52 Range/Units POC Glucose 110 H 70-106 mg/dl Lactic Acid Level 3.3 *H 0.4-2.0 mmol/L White Blood Count 10.8 4.4-10.8 10^3/uL Red Blood Count 3.51 L 4.5-5.90 10^6/uL Hemoglobin 10.1 L 13.5-17.5 g/dL Hematocrit 30.2 L 41.0-53.0 % Mean Corpuscular Volume 85.8 80.0-100.0 fL Mean Corpuscular Hemoglobin 28.7 28.0-32.0 pg Mean Corpuscular Hemoglobin Concent 33.4 32.0-36.0 g/dL Red Cell Distribution Width 17.0 H 11.8-14.3 % Platelet Count 259 140-450 10^3/uL Mean Platelet Volume 7.8 6.9-10.8 fL Neutrophils (%) (Auto) 74.4 37.0-80.0 % Lymphocytes (%) (Auto) 13.8 10.0-50.0 % Monocytes (%) (Auto) 9.1 0.0-12.0 % Eosinophils (%) (Auto) 2.5 0.0-7.0 % Basophils (%) (Auto) 0.2 0.0-2.0 % Neutrophils # (Auto) 8.0 1.6-8.6 10 ^3/uL Lymphocytes # (Auto) 1.5 0.4-5.4 10 ^3/uL Monocytes # (Auto) 1.0 0-1.3 10 ^3/uL Eosinophils # (Auto) 0.3 0-0.8 10 ^3/uL Basophils # (Auto) 0 0-0.2 10 ^3/uL Nucleated Red Blood Cells 0.1 % Total Bilirubin 0.4 0.2-1.0 mg/dL Aspartate Amino Transferase (AST) 22 13-40 U/L Alanine Aminotransferase (ALT) 18 7-40 U/L Alkaline Phosphatase 105 46-116 U/L Total Protein 7.6 5.7-8.2 g/dL Albumin 4.4 3.2-4.8 g/dL Primary Diagnosis Shortness of breathe likely due to acute CHF exacerbation MENDEL on CKD Hypoglycemia likely due to insulin use Plan Patient takes 20 units Lantus a.m. 30 units Lantus p.m. Reduce Lantus a.m. to 10 units and p.m. to 15 units and titrate up as tolerated IV Lasix 40 mg b.i.d. Daily weight Strict in and out Fluid restriction Check echo of the heart Check BNP [facility] consult Ultrasound Avoid nephrotoxic medication Cardiac diet Full code Heparin for DVT prophylaxis Plan discussed with: Patient Problems List: (1) Recurrent severe hypoglycemia Status: Acute (2) Acute and chronic respiratory failure Status: Acute Date of Service: May 13, 2025 Billing Provider: JOSE BUTT MD Common Visit Codes: [id number] INP/OBS CARE (HIGH) JOSE BUTT MD May 13, 2025 16:55
[2025-05-13] MEDS ORDERED: ONDANSETRON HCL 4 MG/2 ML VIAL IV PRN (17:00)
[2025-05-13] MEDS ORDERED: HYDROcodone-ACET 5/325MG TAB PO PRN (17:00)
[2025-05-13] MEDS ORDERED: DOCUSATE SOD 100 MG CAP PO PRN (17:00)
[2025-05-13] MEDS ORDERED: DEXTROSE (50%) 50ML SYRG IV PRN (17:00)
[2025-05-13] MEDS ORDERED: ACETAMINOPHEN 325 MG TAB PO PRN (17:00)
[2025-05-13 17:21] LABS: Chloride 106 mmol/L (98-107); Potassium 4.1 mmol/L (3.5-5.1); Sodium 140 mmol/L (136-145)
[2025-05-13 17:22] LABS: Anion Gap 10 (5-15); Carbon Dioxide 24 mmol/L (20-31)
[2025-05-13 17:25] LABS: Calcium 8.5 mg/dL (8.7-10.4)
[2025-05-13 17:27] LABS: BUN/Creatinine Ratio 11.8 (10.0-20.0); Blood Urea Nitrogen 18 mg/dL (9-23); Glucose 94 mg/dL (74-106)
[2025-05-13] MEDS: InsuLIN REG 1unit/0.01ml Soln (100units/ml) SC SCH (18:00)
[2025-05-13] MEDS: ACCU-CHEK COMFORT CURVE STRIP VI SCH (18:00)
--- NOTE | 2025-05-13 18:02 | DVH ---
INDICATION: MENDEL on CKD TECHNIQUE: Multiple real-time sonographic images of the kidneys and bladder were obtained. COMPARISON: US BILAT LOWER DVT on DOS: 02/07/25, US KIDNEY on DOS: 03/24/24, US KIDNEY on DOS: 02/01/24, US LT LOWER DVT on DOS: 06/18/23 FINDINGS: Evaluation is degraded by patient body habitus and inability of patient to reposition. The right kidney measures 10.8 cm in length, which is normal in size. There is normal echogenicity of the right kidney. No hydronephrosis. There is an anechoic, simple cyst at the inferior pole of the right kidney measuring 3.9 x 3.5 x 3.2 cm. The left kidney measures 10.6 cm in length, which is normal in size. There is normal echogenicity of the left kidney. No hydronephrosis. No intraluminal mass is seen in the bladder. The right and left ureteral jets are visualized during this examination. At the time of the examination, the bladder volume is approximately 136 cc. The bladder wall appears trabeculated, suggestive of chronic outlet obstruction. IMPRESSION: Normal sonographic appearance of the kidneys. No hydronephrosis. Trabeculated appearance of the urinary bladder suggestive of chronic outlet obstruction.
[2025-05-13] MEDS: FUROSEMIDE 40 MG/4 ML VIAL IV SCH (18:33)
[2025-05-13 19:54] VITALS: BP 159/62; PULSE 103; O2SAT 92
[2025-05-13 19:56] VITALS: BP 159/62; PULSE 103; RESP 34; TEMP 97; O2SAT 92
[2025-05-13 21:14] LABS: Base Excess -1.8 mmol/L (-2.0-3.0)
[2025-05-13] MEDS: GABAPENTIN 100 MG CAP PO SCH (22:00)
[2025-05-13] MEDS: ATORVASTATIN 20 MG TAB PO SCH (22:00)
[2025-05-13 22:03] VITALS: BP 138/54; PULSE 80; O2SAT 99
[2025-05-13] MEDS: SODIUM CHLOR 0.9% PF (SALINE LOCK) 10ML VIAL/SYR IV SCH (22:08)
[2025-05-13] MEDS: INSULIN LANTUS (GLARGINE) 1 /0.01ml (100units/ml) SC SCH (22:50)
[2025-05-13 23:43] VITALS: BP 138/60; PULSE 80; O2SAT 96
[2025-05-14] VITALS (11 sets, daily range): BP systolic 143–156; BP diastolic 53–81; PULSE 67–94; RESP 15–22; TEMP 99.1–99.2; O2SAT 90–96
[2025-05-14] MEDS: ALBUTEROL SULF 2.5 MG/0.5ML(0.5%) NEB SOLN ONE (01:26)
[2025-05-14 01:52] LABS: Urine Protein, UAD TRACE (Negative); Urine WBC Clumps PRESENT /hpf (None Seen)
[2025-05-14 05:34] LABS: Hematocrit 24.7 % (41.0-53.0); Hemoglobin 8.5 g/dL (13.5-17.5); Mean Corpuscular Hemoglobin 28.9 pg (28.0-32.0); Mean Corpuscular Volume 84.0 fL (80.0-100.0); Nucleated Red Blood Cells % 0.0 %
[2025-05-14 05:53] LABS: Alanine Aminotransferase 16 U/L (7-40); Albumin 3.8 g/dL (3.2-4.8); Alkaline Phosphatase 84 U/L (46-116); Anion Gap 11 (5-15); BUN/Creatinine Ratio 11.5 (10.0-20.0); Bilirubin, Total 0.6 mg/dL (0.2-1.0); Blood Urea Nitrogen 18 mg/dL (9-23); Calcium 8.9 mg/dL (8.7-10.4); Carbon Dioxide 24 mmol/L (20-31); Chloride 105 mmol/L (98-107); Magnesium 1.9 mg/dL (1.6-2.6); Potassium 4.0 mmol/L (3.5-5.1); Sodium 140 mmol/L (136-145); Total Protein 6.7 g/dL (5.7-8.2)
[2025-05-14 06:03] LABS: Glucose 127 mg/dL (74-106)
[2025-05-14] MEDS: INSULIN LANTUS (GLARGINE) 1 /0.01ml (100units/ml) SC SCH (07:00)
[2025-05-14] MEDS: CHOLECALCIFEROL (VITD3) 1,000UNIT=25mCg TAB PO SCH (10:07)
[2025-05-14] MEDS ORDERED: FURO40TA4 PO (12:50)
[2025-05-14] MEDS ORDERED: AMIO200T33 PO (12:50)
[2025-05-14] MEDS ORDERED: LANS30CA57 PO (12:50)
[2025-05-14] MEDS ORDERED: APIX5TAB PO (12:50)
--- NOTE | 2025-05-14 12:50 | DVHPN2 ---
Reviewed: Care Plan, H&P, Labs, Medications, Previous Orders, Radiology Changes from previous H/P or p: No Changes Objective Vitals Vital Signs Date Time Temp Pulse Resp B/P (MAP) Pulse Ox O2 Delivery O2 Flow Rate FiO2 05/14/25 11:15 75 15 93 Nasal Cannula* 6 44 05/14/25 11:15 107/69 (82) 05/14/25 08:00 99.8 99.8 Intake/Output Intake and Output 05/14/25 07:00 Intake Total 1000 ml Output Total 1200 ml Balance -200 ml Intake IV Total 1000 ml Output Urine Total 1200 ml Medications Current Medications Medications Dose Ordered Sig/Ankur Route Start Time Stop Time Status Last Admin Dose Admin Furosemide 40 mg BIDD IV 05/13/25 18:00 05/14/25 06:00 40 MG Gabapentin 100 mg HS PO 05/13/25 22:00 Amlodipine Besylate 10 mg QAM PO 05/14/25 07:00 05/14/25 09:11 10 MG Aspirin 81 mg DAILY PO 05/14/25 10:00 05/14/25 10:08 81 MG Atorvastatin Calcium 40 mg HS PO 05/13/25 22:00 Cholecalciferol 1,000 unit DAILY PO 05/14/25 10:00 05/14/25 10:07 1,000 UNIT Insulin Glargine 10 units QAM SC 05/14/25 07:00 Insulin Glargine 15 units HS SC 05/13/25 22:00 05/13/25 22:50 15 UNITS Diagnostic Test (Pha) 1 strip ACHS 05/13/25 17:00 05/14/25 11:30 1 STRIP Insulin Human Regular ACHS SC 05/13/25 17:00 05/14/25 11:30 6 UNITS Dextrose 50 ml UD PRN IV 05/13/25 17:00 Sodium Chloride 10 ml Q8HR IV 05/13/25 22:00 05/14/25 06:13 10 ML Docusate Sodium 100 mg BIDPRN PRN PO 05/13/25 17:00 Acetaminophen 650 mg Q6HP PRN PO 05/13/25 17:00 Acetaminophen/ Hydrocodone Bitart 1 tab Q4HP PRN PO 05/13/25 17:00 Ondansetron HCl 4 mg Q4HP PRN IV 05/13/25 17:00 Patient Own Medication 1 tab BID PO 05/13/25 22:00 Laboratory Results Laboratory Tests 05/14/25 05:06 Chemistry Test 05/13/25 16:59 05/14/25 05:06 Calcium Level 8.5 mg/dL (8.7-10.4) L 8.9 mg/dL (8.7-10.4) Albumin 3.8 g/dL (3.2-4.8) Magnesium Level 1.9 mg/dL (1.6-2.6) Total Protein 6.7 g/dL (5.7-8.2) LFT Test 05/14/25 05:06 Alanine Aminotransferase (ALT) 16 U/L (7-40) Alkaline Phosphatase 84 U/L (46-116) Aspartate Amino Transferase (AST) 19 U/L (13-40) Total Bilirubin 0.6 mg/dL (0.2-1.0) Urinalysis Test 05/13/25 21:58 Urine Color Colorless (Yellow) Urine Clarity Clear (Clear) Urine pH 5.0 (5.0-9.0) Urine Specific [place] 1.008 (1.001-1.035) Urine Protein Trace (Negative) H Urine Ketones Negative (Negative) Urine Blood 1+ /uL (Negative) H Urine Nitrite Negative (Negative) Urine Bilirubin Negative (Negative) Urine Urobilinogen Normal mg/dL (Negative) Urine Leukocyte Esterase Trace /uL (Negative) Urine RBC 44 /hpf (0 - 3) Urine WBC Clumps Present /hpf (None Seen) Urine Microscopic WBC 11 /HPF (0-3) H Urine Squamous Epithelial Cells None seen /hpf (<5) Urine Bacteria None seen /hpf (None Seen) Urine Glucose Normal mg/dL (Normal) Blood Gas Results Test 05/13/25 21:10 Arterial Blood pH 7.460 (7.350-7.450) FiO2 % 40.0 Microbiology Microbiology Date/Time Source Procedure Growth Status 05/13/25 10:07 Blood Blood Culture - Preliminary NO GROWTH AFTER 24 HOURS OF INCUBATION. Resulted Labs and/or images reviewed: Labs reviewed by me, Image(s) reviewed by me Assessment/Plan Assessment/Plan Acute hypoglycemia probably due to excessive insulin use Diabetes Hypertension CKD Hypercholesterolemia Plan discussed with: Patient Date of Service: May 14, 2025 Billing Provider: CLARENCE HOUSTON MD Common Visit Codes: [id number] INP/OBS CARE(HIGH) CLARENCE HOUSTON MD May 14, 2025 12:50
--- NOTE | 2025-05-14 19:55 | DVHINCON2 ---
Date of service: May 14, 2025 Reason for Consultation cristine History of Present Illness 70 years old male with past medical history of Chronic kidney disease, diabetes, dyslipidemia, hypertension, chronic hypoxic respiratory failure presented with chief complaint of low blood sugars he also had shortness of breath denies any urinary complaints Baseline renal function in March was Chronic kidney disease stage 3 a Chest x-ray showing pulmonary vascular congestion pleural effusions Kidney ultrasound showing trabeculated appearance of bladder suggestive of chronic outlet obstruction Past Medical History As per HPI Past Surgical History As per HPI Allergies: Coded Allergies: NO KNOWN ALLERGIES (Unverified , 11/10/24) Home Meds Reported Medications Amiodarone Hcl (Amiodarone Hcl) 200 Mg Tab, 200 MG PO Q12HR for 30 Days 05/14/25 Furosemide (Furosemide) 40 Mg Tab, 40 MG PO BIDD for 30 Days, MG 05/14/25 Lansoprazole (Lansoprazole) 30 Mg Cap, 1 CAP PO DAILY, #30 CAP 5 Refills 05/14/25 Apixaban Base (ELIQUIS) 5 Mg Tab, 5 MG PO BID, TAB 05/14/25 Metformin Hydrochloride (Metformin Hcl) 1,000 Mg Tab, 1 TAB PO BIDWM for DIABETES TAKE WITH MORNING AND EVENING MEALS 01/09/25 Insulin Glargine (Lantus Solostar) 100 Unit/Ml Inj, 30 UNIT SC QPM for DIABETES 01/09/25 Gabapentin (Gabapentin) 100 Mg Cap, 1 CAP PO HS for NEUROPATHY 01/09/25 Ferrous Sulfate Dried (Iron High Potency) 65 Mg Tab, 1 TAB PO BID for SUPPLEMENT 01/09/25 Cholecalciferol (Vitamin D3) 1,000 Unit Cap, 1 CAP PO DAILY for SUPPLEMENT 01/09/25 Amlodipine Besylate (Amlodipine Besylate) 10 Mg Tab, 1 TAB PO QAM for HYPERTENSION 01/09/25 Aspirin (Aspirin Low Dose) 81 Mg Chw, 1 TAB PO DAILY for HEART ATTACK PREVENTION 10/15/23 Insulin Glargine (Lantus Solostar) 100 Unit/Ml Inj, 20 UNIT SC QAM for DIABETES 10/15/23 Atorvastatin Calcium (Lipitor) 40 Mg Tab, 1 TAB PO HS for HIGH CHOLESTEROL 10/15/23 Losartan Potassium (Losartan Potassium) 100 Mg Tab, 1 TAB PO QAM for HYPERTENSION 10/15/23 Glimepiride (Glimepiride) 4 Mg Tab, 1 TAB PO BID for DIABETES 10/15/23 Current Medications Current Medications Medications (Trade) Dose Ordered Sig/Ankur Route PRN Reason Start Time Stop Time Status Last Admin Gabapentin (Neurontin Capsule) 100 mg HS PO 05/13/25 22:00 Amlodipine Besylate (Norvasc Tablet) 10 mg QAM PO 05/14/25 07:00 05/14/25 09:11 Aspirin 81 mg DAILY PO 05/14/25 10:00 05/14/25 10:08 Atorvastatin Calcium (Lipitor) 40 mg HS PO 05/13/25 22:00 Cholecalciferol (Vitamin D3 Tablet) 1,000 unit DAILY PO 05/14/25 10:00 05/14/25 10:07 Insulin Glargine (Lantus) 10 units QAM SC 05/14/25 07:00 Insulin Glargine (Lantus) 15 units HS SC 05/13/25 22:00 05/13/25 22:50 Sodium Chloride (Saline Lock Ns) 10 ml Q8HR IV 05/13/25 22:00 05/14/25 14:51 Patient Own Medication 1 tab BID PO 05/13/25 22:00 Family History: Diabetes mellitus G8 MOTHER, G8 FATHER, Review of Systems HEENT-denies headache, denies vision changes, no hearing issue, denies neck complaints, denies throat issues Respiratory system-denies cough, denies shortness of breath Cardiovascular system-denies chest pain, denies palpitations Abdomen-denies abdominal pain, denies nausea, denies vomiting, denies constipation or diarrhea Musculoskeletal-denies swelling in the legs, denies pain in the extremities Genitourinary-denies urinary symptoms like dysuria, stream issues Neuro-denies dizziness, denies seizures Psychiatric-denies psychiatric history H&P Exam Vital Signs/I&O Vital Sign Date Time Temp Pulse Resp B/P (MAP) Pulse Ox O2 Delivery O2 Flow Rate FiO2 05/14/25 17:04 149/70 05/14/25 16:50 99.2 79 18 93 99.2 05/14/25 12:30 Nasal Cannula* 6 44 Intake and Output 05/13/25 05/14/25 19:00 07:00 Intake Total 1000 ml Output Total 1200 ml Balance 1000 ml -1200 ml IV Total 1000 ml Output Urine Total 1200 ml Physical Exam General-not in any distress HEENT-normocephalic, no icterus, no pallor, neck supple Respiratory-fair air entry bilateral, no rhonchi, no wheeze Liprslvcynsfae-P2-O4 heard, no murmurs appreciated Abdominal-soft, nontender, nondistended Musculoskeletal-no pedal edema, no calf tenderness Genitourinary-deferred Neuro-awake alert oriented x3, Psychiatric-not agitated, cooperative, Labs/Diagnostic Data Labs/Diagnostic Data Laboratory Tests Test 05/14/25 16:50 05/14/25 12:01 05/14/25 07:09 05/14/25 05:06 Range/Units POC Glucose 254 H 286 H 138 H 70-106 mg/dl White Blood Count 8.4 4.4-10.8 10^3/uL Red Blood Count 2.94 L 4.5-5.90 10^6/uL Hemoglobin 8.5 #L 13.5-17.5 g/dL Hematocrit 24.7 #L 41.0-53.0 % Mean Corpuscular Volume 84.0 80.0-100.0 fL Mean Corpuscular Hemoglobin 28.9 28.0-32.0 pg Mean Corpuscular Hemoglobin Concent 34.4 32.0-36.0 g/dL Red Cell Distribution Width 16.4 H 11.8-14.3 % Platelet Count 183 140-450 10^3/uL Mean Platelet Volume 7.8 6.9-10.8 fL Neutrophils (%) (Auto) 66.7 37.0-80.0 % Lymphocytes (%) (Auto) 16.9 10.0-50.0 % Monocytes (%) (Auto) 14.7 H 0.0-12.0 % Eosinophils (%) (Auto) 1.6 0.0-7.0 % Basophils (%) (Auto) 0.1 0.0-2.0 % Neutrophils # (Auto) 5.6 1.6-8.6 10 ^3/uL Lymphocytes # (Auto) 1.4 0.4-5.4 10 ^3/uL Monocytes # (Auto) 1.2 0-1.3 10 ^3/uL Eosinophils # (Auto) 0.1 0-0.8 10 ^3/uL Basophils # (Auto) 0 0-0.2 10 ^3/uL Nucleated Red Blood Cells 0.0 % Sodium Level 140 136-145 mmol/L Potassium Level 4.0 3.5-5.1 mmol/L Chloride Level 105 98-107 mmol/L Carbon Dioxide Level 24 20-31 mmol/L Anion Gap 11 5-15 Blood Urea Nitrogen 18 9-23 mg/dL Creatinine 1.56 H 0.700-1.30 mg/dL Glomerular Filtration Rate Calc 47 >90 mL/min BUN/Creatinine Ratio 11.5 10.0-20.0 Serum Glucose 127 H 74-106 mg/dL Calcium Level 8.9 8.7-10.4 mg/dL Magnesium Level 1.9 1.6-2.6 mg/dL Total Bilirubin 0.6 0.2-1.0 mg/dL Aspartate Amino Transferase (AST) 19 13-40 U/L Alanine Aminotransferase (ALT) 16 7-40 U/L Alkaline Phosphatase 84 46-116 U/L Total Protein 6.7 5.7-8.2 g/dL Albumin 3.8 3.2-4.8 g/dL Test 05/13/25 21:58 05/13/25 21:10 05/13/25 17:59 05/13/25 17:08 Range/Units Urine Color Colorless Yellow Urine Clarity Clear Clear Urine pH 5.0 5.0-9.0 Urine Specific [place] 1.008 1.001-1.035 Urine Protein Trace H Negative Urine Ketones Negative Negative Urine Blood 1+ H Negative /uL Urine Nitrite Negative Negative Urine Bilirubin Negative Negative Urine Urobilinogen Normal Negative mg/dL Urine Leukocyte Esterase Trace Negative /uL Urine RBC 44 0 - 3 /hpf Urine WBC Clumps Present None Seen /hpf Urine Microscopic WBC 11 H 0-3 /HPF Urine Squamous Epithelial Cells None seen <5 /hpf Urine Bacteria None seen None Seen /hpf Urine Glucose Normal Normal mg/dL Blood Gas Specimen Type Arterial Blood Gas Sample Site Right radial Blood Gas Patient Temperature 37.0 Arterial Blood Date Drawn [id number] Arterial Blood pH 7.460 H 7.350-7.450 Arterial Blood Partial Pressure CO2 30.5 L 35.0-48.0 mmHg Arterial Blood Partial Pressure O2 60.5 L 83.0-108.0 mmHg Arterial Blood HCO3 21.2 21.0-28.0 mmol/L Arterial Blood Oxygen Saturation 89.9 L 94.0-98.0 % Arterial Blood Base Excess -1.8 -2.0-3.0 mmol/L Arterial Blood Oxyhemoglobin 89.4 L 94.0-98.0 % Arterial Blood Carboxyhemoglobin 0.4 L 0.5-1.5 % Arterial Blood Methemoglobin 0.2 0.0-1.5 % Indra Test Yes Blood Gas Total Hemoglobin 11.20 L 13.5-17.5 g/dL Blood Gas Set Respiration Rate 12.0 Blood Gas Modality Mask - bipap FiO2 % 40.0 Blood Gas EPAP 5 Blood Gas IPAP 12 POC Glucose 100 70-106 mg/dl Lactic Acid Level 1.2 0.4-2.0 mmol/L Test 05/13/25 16:59 05/13/25 14:00 05/13/25 12:55 05/13/25 12:45 Range/Units Sodium Level 140 136-145 mmol/L Potassium Level 4.1 3.5-5.1 mmol/L Chloride Level 106 98-107 mmol/L Carbon Dioxide Level 24 20-31 mmol/L Anion Gap 10 5-15 Blood Urea Nitrogen 18 9-23 mg/dL Creatinine 1.52 H 0.700-1.30 mg/dL Glomerular Filtration Rate Calc 48 >90 mL/min BUN/Creatinine Ratio 11.8 10.0-20.0 Serum Glucose 94 74-106 mg/dL Calcium Level 8.5 L 8.7-10.4 mg/dL Troponin I High Sensitivity 29 28 </=54 ng/L POC Glucose 110 H 70-106 mg/dl Lactic Acid Level 3.3 *H 0.4-2.0 mmol/L Test 05/13/25 09:52 Range/Units White Blood Count 10.8 4.4-10.8 10^3/uL Red Blood Count 3.51 L 4.5-5.90 10^6/uL Hemoglobin 10.1 L 13.5-17.5 g/dL Hematocrit 30.2 L 41.0-53.0 % Mean Corpuscular Volume 85.8 80.0-100.0 fL Mean Corpuscular Hemoglobin 28.7 28.0-32.0 pg Mean Corpuscular Hemoglobin Concent 33.4 32.0-36.0 g/dL Red Cell Distribution Width 17.0 H 11.8-14.3 % Platelet Count 259 140-450 10^3/uL Mean Platelet Volume 7.8 6.9-10.8 fL Neutrophils (%) (Auto) 74.4 37.0-80.0 % Lymphocytes (%) (Auto) 13.8 10.0-50.0 % Monocytes (%) (Auto) 9.1 0.0-12.0 % Eosinophils (%) (Auto) 2.5 0.0-7.0 % Basophils (%) (Auto) 0.2 0.0-2.0 % Neutrophils # (Auto) 8.0 1.6-8.6 10 ^3/uL Lymphocytes # (Auto) 1.5 0.4-5.4 10 ^3/uL Monocytes # (Auto) 1.0 0-1.3 10 ^3/uL Eosinophils # (Auto) 0.3 0-0.8 10 ^3/uL Basophils # (Auto) 0 0-0.2 10 ^3/uL Nucleated Red Blood Cells 0.1 % Sodium Level 140 136-145 mmol/L Potassium Level 4.4 3.5-5.1 mmol/L Chloride Level 105 98-107 mmol/L Carbon Dioxide Level 23 20-31 mmol/L Anion Gap 12 5-15 Blood Urea Nitrogen 17 9-23 mg/dL Creatinine 1.62 H 0.700-1.30 mg/dL Glomerular Filtration Rate Calc 45 >90 mL/min BUN/Creatinine Ratio 10.5 10.0-20.0 Serum Glucose 117 H 74-106 mg/dL Lactic Acid Level 2.3 *H 0.4-2.0 mmol/L Calcium Level 9.1 8.7-10.4 mg/dL Total Bilirubin 0.4 0.2-1.0 mg/dL Aspartate Amino Transferase (AST) 22 13-40 U/L Alanine Aminotransferase (ALT) 18 7-40 U/L Alkaline Phosphatase 105 46-116 U/L Troponin I High Sensitivity 28 </=54 ng/L Total Protein 7.6 5.7-8.2 g/dL Albumin 4.4 3.2-4.8 g/dL Assessment Acute kidney injury likely hemodynamic mediated etiology Acute on chronic hypoxic respiratory failure Trabeculated bladder likely chronic bladder obstruction on ultrasound Obesity Recommendations Continue diuretics IV as ordered Baseline Chronic kidney disease 3A Urology consult We will follow Plan discussed with: Patient ANKITA FORRESTER MD May 14, 2025 19:55
[2025-05-14 23:04] LABS: Protein, Urine 110.4 mg/dL (1-14)
[2025-05-15 01:00] VITALS: BP 143/81; PULSE 75; RESP 18; TEMP 98.5; O2SAT 91
[2025-05-15 02:00] VITALS: O2SAT 92
[2025-05-15 08:00] VITALS: PULSE 75; RESP 20; O2SAT 94
[2025-05-15 08:52] LABS: Hematocrit 27.9 % (41.0-53.0); Hemoglobin 9.6 g/dL (13.5-17.5); Mean Corpuscular Hemoglobin 28.8 pg (28.0-32.0); Mean Corpuscular Volume 83.5 fL (80.0-100.0); Nucleated Red Blood Cells % 0.0 %
[2025-05-15 09:00] VITALS: BP 142/59; PULSE 73; RESP 18; TEMP 98.5; O2SAT 89
[2025-05-15 09:05] LABS: Alanine Aminotransferase 28 U/L (7-40); Alkaline Phosphatase 95 U/L (46-116); Anion Gap 11 (5-15); BUN/Creatinine Ratio 15.0 (10.0-20.0); Blood Urea Nitrogen 23 mg/dL (9-23); Calcium 9.2 mg/dL (8.7-10.4); Carbon Dioxide 27 mmol/L (20-31); Chloride 102 mmol/L (98-107); Glucose 85 mg/dL (74-106); Magnesium 2.0 mg/dL (1.6-2.6); Sodium 140 mmol/L (136-145); Total Protein 7.3 g/dL (5.7-8.2)
[2025-05-15 09:06] LABS: Albumin 4.2 g/dL (3.2-4.8); Bilirubin, Total 0.7 mg/dL (0.2-1.0)
[2025-05-15 09:08] LABS: Potassium 3.4 mmol/L (3.5-5.1)
--- NOTE | 2025-05-15 09:56 | DVHPN2 ---
Reviewed: Care Plan, H&P, Labs, Medications, Previous Orders, Radiology Changes from previous H/P or p: No Changes Objective Vitals Vital Signs Date Time Temp Pulse Resp B/P (MAP) Pulse Ox O2 Delivery O2 Flow Rate FiO2 05/15/25 06:07 147/89 05/15/25 02:00 92 Nasal Cannula 5.0 05/15/25 01:00 98.5 75 18 98.5 05/14/25 20:00 44 Intake/Output Intake and Output 05/15/25 07:00 Intake Total 860 ml Output Total 2700 ml Balance -1840 ml Intake Oral 860 ml Output Urine Total 1150 ml Gastric Drainage Total 1550 ml Medications Current Medications Medications Dose Ordered Sig/Ankur Route Start Time Stop Time Status Last Admin Dose Admin Furosemide 40 mg BIDD IV 05/13/25 18:00 05/15/25 06:07 40 MG Gabapentin 100 mg HS PO 05/13/25 22:00 Amlodipine Besylate 10 mg QAM PO 05/14/25 07:00 05/15/25 06:06 10 MG Aspirin 81 mg DAILY PO 05/14/25 10:00 05/15/25 09:42 81 MG Atorvastatin Calcium 40 mg HS PO 05/13/25 22:00 05/14/25 22:14 40 MG Cholecalciferol 1,000 unit DAILY PO 05/14/25 10:00 05/15/25 09:42 1,000 UNIT Insulin Glargine 10 units QAM SC 05/14/25 07:00 05/15/25 06:14 10 UNITS Insulin Glargine 15 units HS SC 05/13/25 22:00 05/14/25 22:21 15 UNITS Diagnostic Test (Pha) 1 strip ACHS 05/13/25 17:00 05/15/25 06:05 1 STRIP Insulin Human Regular ACHS SC 05/13/25 17:00 05/14/25 22:20 4 UNITS Dextrose 50 ml UD PRN IV 05/13/25 17:00 Sodium Chloride 10 ml Q8HR IV 05/13/25 22:00 05/15/25 06:07 10 ML Docusate Sodium 100 mg BIDPRN PRN PO 05/13/25 17:00 Acetaminophen 650 mg Q6HP PRN PO 05/13/25 17:00 Acetaminophen/ Hydrocodone Bitart 1 tab Q4HP PRN PO 05/13/25 17:00 Ondansetron HCl 4 mg Q4HP PRN IV 05/13/25 17:00 Patient Own Medication 1 tab BID PO 05/13/25 22:00 Laboratory Results Laboratory Tests 05/15/25 07:45 05/15/25 07:49 Chemistry Test 05/15/25 07:45 Albumin 4.2 g/dL (3.2-4.8) Calcium Level 9.2 mg/dL (8.7-10.4) Magnesium Level 2.0 mg/dL (1.6-2.6) Total Protein 7.3 g/dL (5.7-8.2) LFT Test 05/15/25 07:45 Alanine Aminotransferase (ALT) 28 U/L (7-40) Alkaline Phosphatase 95 U/L (46-116) Aspartate Amino Transferase (AST) 34 U/L (13-40) Total Bilirubin 0.7 mg/dL (0.2-1.0) Urinalysis Test 05/13/25 21:58 05/14/25 22:30 Urine Color Colorless (Yellow) Urine Clarity Clear (Clear) Urine pH 5.0 (5.0-9.0) Urine Specific [place] 1.008 (1.001-1.035) Urine Protein Trace (Negative) H Urine Ketones Negative (Negative) Urine Blood 1+ /uL (Negative) H Urine Nitrite Negative (Negative) Urine Bilirubin Negative (Negative) Urine Urobilinogen Normal mg/dL (Negative) Urine Leukocyte Esterase Trace /uL (Negative) Urine RBC 44 /hpf (0 - 3) Urine WBC Clumps Present /hpf (None Seen) Urine Microscopic WBC 11 /HPF (0-3) H Urine Squamous Epithelial Cells None seen /hpf (<5) Urine Bacteria None seen /hpf (None Seen) Urine Glucose Normal mg/dL (Normal) Urine Creatinine 71.60 mg/dL (30.0-125.0) Urine Sodium 80 mmol/L (40-220) Urine Total Protein 110.4 mg/dL (1-14) H Microbiology Microbiology Date/Time Source Procedure Growth Status 05/13/25 21:58 Urine - Catheterized Urine Culture - Preliminary Resulted 05/13/25 10:07 Blood Blood Culture - Preliminary NO GROWTH AFTER 24 HOURS OF INCUBATION. Resulted Labs and/or images reviewed: Labs reviewed by me, Image(s) reviewed by me Assessment/Plan Assessment/Plan Acute hypoglycemia probably due to excessive insulin use, now resolved, patient was educated Hypertension CKD Hypercholesterolemia Plan discussed with: Patient Date of Service: May 15, 2025 Billing Provider: CLARENCE HOUSTON MD Common Visit Codes: [id number] INP/OBS CARE(HIGH) CLARENCE HOUSTON MD May 15, 2025 09:56
--- NOTE | 2025-05-15 09:59 | DVHDS2 ---
Discharge Summary Date of Admission May 13, 2025 at 16:55 Date of Discharge: May 15, 2025 Admitting Diagnosis Low blood sugar secondary to excessive insulin use Wounds: None Labs/Diagnostic Data: Laboratory Results Test 05/15/25 07:49 05/15/25 07:45 05/15/25 05:57 05/14/25 22:30 White Blood Count 8.5 10^3/uL (4.4-10.8) Red Blood Count 3.35 10^6/uL (4.5-5.90) Hemoglobin 9.6 g/dL (13.5-17.5) Hematocrit 27.9 % (41.0-53.0) Mean Corpuscular Volume 83.5 fL (80.0-100.0) Mean Corpuscular Hemoglobin 28.8 pg (28.0-32.0) Mean Corpuscular Hemoglobin Concent 34.4 g/dL (32.0-36.0) Red Cell Distribution Width 16.9 % (11.8-14.3) Platelet Count 236 10^3/uL (140-450) Mean Platelet Volume 7.8 fL (6.9-10.8) Neutrophils (%) (Auto) 67.3 % (37.0-80.0) Lymphocytes (%) (Auto) 15.4 % (10.0-50.0) Monocytes (%) (Auto) 12.6 % (0.0-12.0) Eosinophils (%) (Auto) 4.5 % (0.0-7.0) Basophils (%) (Auto) 0.2 % (0.0-2.0) Neutrophils # (Auto) 5.7 10 ^3/uL (1.6-8.6) Lymphocytes # (Auto) 1.3 10 ^3/uL (0.4-5.4) Monocytes # (Auto) 1.1 10 ^3/uL (0-1.3) Eosinophils # (Auto) 0.4 10 ^3/uL (0-0.8) Basophils # (Auto) 0 10 ^3/uL (0-0.2) Nucleated Red Blood Cells 0.0 % Sodium Level 140 mmol/L (136-145) Potassium Level 3.4 mmol/L (3.5-5.1) Chloride Level 102 mmol/L (98-107) Carbon Dioxide Level 27 mmol/L (20-31) Anion Gap 11 (5-15) Blood Urea Nitrogen 23 mg/dL (9-23) Creatinine 1.53 mg/dL (0.700-1.30) Glomerular Filtration Rate Calc 48 mL/min (>90) BUN/Creatinine Ratio 15.0 (10.0-20.0) Serum Glucose 85 mg/dL (74-106) Calcium Level 9.2 mg/dL (8.7-10.4) Magnesium Level 2.0 mg/dL (1.6-2.6) Total Bilirubin 0.7 mg/dL (0.2-1.0) Aspartate Amino Transferase (AST) 34 U/L (13-40) Alanine Aminotransferase (ALT) 28 U/L (7-40) Alkaline Phosphatase 95 U/L (46-116) Total Protein 7.3 g/dL (5.7-8.2) Albumin 4.2 g/dL (3.2-4.8) POC Glucose 95 mg/dl (70-106) Urine Creatinine 71.60 mg/dL (30.0-125.0) Urine Sodium 80 mmol/L (40-220) Urine Total Protein 110.4 mg/dL (1-14) Test 05/13/25 21:58 05/13/25 21:10 05/13/25 17:08 05/13/25 16:59 Urine Color Colorless (Yellow) Urine Clarity Clear (Clear) Urine pH 5.0 (5.0-9.0) Urine Specific [place] 1.008 (1.001-1.035) Urine Protein Trace (Negative) Urine Ketones Negative (Negative) Urine Blood 1+ /uL (Negative) Urine Nitrite Negative (Negative) Urine Bilirubin Negative (Negative) Urine Urobilinogen Normal mg/dL (Negative) Urine Leukocyte Esterase Trace /uL (Negative) Urine RBC 44 /hpf (0 - 3) Urine WBC Clumps Present /hpf (None Seen) Urine Microscopic WBC 11 /HPF (0-3) Urine Squamous Epithelial Cells None seen /hpf (<5) Urine Bacteria None seen /hpf (None Seen) Urine Glucose Normal mg/dL (Normal) Blood Gas Specimen Type Arterial Blood Gas Sample Site Right radial Blood Gas Patient Temperature 37.0 Arterial Blood Date Drawn [id number] Arterial Blood pH 7.460 (7.350-7.450) Arterial Blood Partial Pressure CO2 30.5 mmHg (35.0-48.0) Arterial Blood Partial Pressure O2 60.5 mmHg (83.0-108.0) Arterial Blood HCO3 21.2 mmol/L (21.0-28.0) Arterial Blood Oxygen Saturation 89.9 % (94.0-98.0) Arterial Blood Base Excess -1.8 mmol/L (-2.0-3.0) Arterial Blood Oxyhemoglobin 89.4 % (94.0-98.0) Arterial Blood Carboxyhemoglobin 0.4 % (0.5-1.5) Arterial Blood Methemoglobin 0.2 % (0.0-1.5) Indra Test Yes Blood Gas Total Hemoglobin 11.20 g/dL (13.5-17.5) Blood Gas Set Respiration Rate 12.0 Blood Gas Modality Mask - bipap FiO2 % 40.0 Blood Gas EPAP 5 Blood Gas IPAP 12 Lactic Acid Level 1.2 mmol/L (0.4-2.0) Troponin I High Sensitivity 29 ng/L (</=54) Other Laboratory Tests 05/15/25 07:49 05/15/25 07:45 Brief Hx & Hospital Course: 70-year-old male with a history of insulin dependent diarrhea hypertension CKD and hypercholesterolemia burden by paramedics for low blood sugar found to have blood sugar of 30 in the field given D50 per patient he might have taken too much of insulin he was admitted and stabilized and educated discharged home. He was advised to check his blood sugars before taking insulin. He will follow up with his primary Dr Consults/Reason for consult None Operations or Procedures None Condition at Discharge: Fair Final Diagnosis/Problems List Acute hypoglycemia probably due to excessive insulin use, now resolved, patient was educated Hypertension CKD Hypercholesterolemia Discharge Disposition: Home Discharge Instruct/Medications Diet: Consistent carbohydrate Activity: Light activity Follow Up/Referral: Check your blood sugar 3 times a day and take insulin accordingly Medications: None Scheduled Amiodarone Hcl (Amiodarone Hcl), 200 MG PO Q12HR, (Reported) Amlodipine Besylate (Amlodipine Besylate), 1 TAB PO QAM, (Reported) Apixaban Base (Eliquis), 5 MG PO BID, (Reported) Aspirin (Aspirin Low Dose), 1 TAB PO DAILY, (Reported) Atorvastatin Calcium (Lipitor), 1 TAB PO HS, (Reported) Cholecalciferol (Vitamin D3), 1 CAP PO DAILY, (Reported) Ferrous Sulfate Dried (Iron High Potency), 1 TAB PO BID, (Reported) Furosemide (Furosemide), 40 MG PO BIDD, (Reported) Gabapentin (Gabapentin), 1 CAP PO HS, (Reported) Glimepiride (Glimepiride), 1 TAB PO BID, (Reported) Insulin Glargine (Lantus Solostar), 20 UNIT SC QAM, (Reported) Insulin Glargine (Lantus Solostar), 30 UNIT SC QPM, (Reported) Lansoprazole (Lansoprazole), 1 CAP PO DAILY, (Reported) Losartan Potassium (Losartan Potassium), 1 TAB PO QAM, (Reported) Metformin Hydrochloride (Metformin Hcl), 1 TAB PO BIDWM, (Reported) 35 (Time taken for discharge summary 35 minutes) Discharge Statement: "Patient was advised to return to the ER or call 911 if any headaches, dizziness, shortness of breath, chest pain, abdominal pain, bleeding, fevers, or worsening of medical condition. Patient was counseled about treatment plan, medications, possible side effects, patientverbalized understanding. All questions were answered to the best of my ability. This discharge took greater then 30 minutes in planning, reviewing documentation, counseling the patient, and discussing with other team members." ASSESSMENT ASSESSMENT Hospital Course Improved Assessment Acute hypoglycemia probably due to excessive insulin use, now resolved, patient was educated Hypertension CKD Hypercholesterolemia Date of Service: May 15, 2025 Billing Provider: CLARENCE HOUSTON MD Common Visit Codes: [id number] INP/OBS CARE(HIGH) CLARENCE HOUSTON MD May 15, 2025 09:59
--- NOTE | 2025-05-15 12:09 | DVHPN2 ---
Progress Note Date Seen: May 15, 2025 Medical Necessity Reason Pt with a Central, PICC or Fol: Yes The following are medically ne: Casarez Catheter Objective vital signs Vital Sign Date Time Temp Pulse Resp B/P (MAP) Pulse Ox O2 Delivery O2 Flow Rate FiO2 05/15/25 09:00 98.5 73 18 142/59 (86) 89 98.5 05/15/25 08:00 Nasal Cannula* 5 40 Total Intake and Output 05/14/25 05/14/25 05/15/25 15:00 23:00 07:00 Intake Total 120 ml 240 ml 500 ml Output Total 1550 ml 1150 ml Balance 120 ml -1310 ml -650 ml medications Current Medications Medications Dose Ordered Sig/Ankur Route Start Time Stop Time Status Last Admin Dose Admin Furosemide 40 mg BIDD IV 05/13/25 18:00 05/15/25 06:07 40 MG Gabapentin 100 mg HS PO 05/13/25 22:00 Amlodipine Besylate 10 mg QAM PO 05/14/25 07:00 05/15/25 06:06 10 MG Aspirin 81 mg DAILY PO 05/14/25 10:00 05/15/25 09:42 81 MG Atorvastatin Calcium 40 mg HS PO 05/13/25 22:00 05/14/25 22:14 40 MG Cholecalciferol 1,000 unit DAILY PO 05/14/25 10:00 05/15/25 09:42 1,000 UNIT Insulin Glargine 10 units QAM SC 05/14/25 07:00 05/15/25 06:14 10 UNITS Insulin Glargine 15 units HS SC 05/13/25 22:00 05/14/25 22:21 15 UNITS Diagnostic Test (Pha) 1 strip ACHS 05/13/25 17:00 05/15/25 11:43 1 STRIP Insulin Human Regular ACHS SC 05/13/25 17:00 05/15/25 11:43 3 UNITS Dextrose 50 ml UD PRN IV 05/13/25 17:00 Sodium Chloride 10 ml Q8HR IV 05/13/25 22:00 05/15/25 06:07 10 ML Docusate Sodium 100 mg BIDPRN PRN PO 05/13/25 17:00 Acetaminophen 650 mg Q6HP PRN PO 05/13/25 17:00 Acetaminophen/ Hydrocodone Bitart 1 tab Q4HP PRN PO 05/13/25 17:00 Ondansetron HCl 4 mg Q4HP PRN IV 05/13/25 17:00 Patient Own Medication 1 tab BID PO 05/13/25 22:00 Examination: GENERAL:Normal, CVS:Normal laboratory and microbiology Laboratory Tests 05/15/25 07:49 05/15/25 07:45 Test 05/15/25 07:45 Range/Units Serum Glucose 85 74-106 mg/dL Microbiology Date/Time Source Procedure Growth Status 05/13/25 21:58 Urine - Catheterized Urine Culture - Preliminary Resulted 05/13/25 10:07 Blood Blood Culture - Preliminary NO GROWTH AFTER 48 HOURS OF INCUBATION. Resulted Problem List/Assessment/Plan Problem List/Assessment/Plan Acute kidney injury likely hemodynamic mediated etiology Acute on chronic hypoxic respiratory failure Trabeculated bladder likely chronic bladder obstruction on ultrasound Obesity Recommendations Continue diuretics IV as ordered Baseline Chronic kidney disease 3A Urology consult for outpatient f/u, casarez should remain in place We will follow Plan discussed with: Patient SILVER BAR MD May 15, 2025 12:09
[2025-05-15 13:00] VITALS: BP 138/68; PULSE 67; RESP 18; TEMP 98.2; O2SAT 91
[2025-05-15 17:00] VITALS: BP 139/72; PULSE 70; RESP 18; TEMP 99.2; O2SAT 92
== END 2025-05-15 18:56 | disposition home or self-care (01) | DRG 637 ==
LOC: ER 09:03 → EDBD 09:03 → EDUNIT# 09:03 → OVERFLOW 16:55 → TELE-CENTR 05-14 12:20
PROVIDERS: ADMIT Family Medicine; ATTEND Family Medicine
DX: E11.649 Type 2 diabetes mellitus with hypoglycemia without coma (principal); J96.21 Acute and chronic respiratory failure with hypoxia; N17.9 Acute kidney failure, unspecified; I13.0 Hypertensive heart and chronic kidney disease with heart failure and stage 1 through stage 4 chronic kidney disease, or unspecified chronic kidney disease; N18.31 Chronic kidney disease, stage 3a; E11.22 Type 2 diabetes mellitus with diabetic chronic kidney disease; E66.9 Obesity, unspecified; T38.3X5A Adverse effect of insulin and oral hypoglycemic [antidiabetic] drugs, initial encounter; E78.00 Pure hypercholesterolemia, unspecified; N32.89 Other specified disorders of bladder; Z87.440 Personal history of urinary (tract) infections; Z79.4 Long term (current) use of insulin; Z83.3 Family history of diabetes mellitus; Y92.89 Other specified places as the place of occurrence of the external cause; Z68.32 Body mass index [BMI] 32.0-32.9, adult
CPT/HCPCS: 36415; 36600; 71045; 76775; 80048; 80053; 81001; 82570; 82805; 82962; 83605; 83735; 84156; 84300; 84484; 85025; 87040; 87081; 87086; 87088; 96360; 99291; G0378; J1815

== ENCOUNTER 2025-05-18 02:36 | Inpatient (IN) | payer OTHER, MEDICAID ==
[2025-05-18] VITALS (14 sets, daily range): BP systolic 125–155; BP diastolic 46–73; PULSE 68–107; RESP 22–34; TEMP 98.1; O2SAT 87–100
[~2025-05-18] VITALS: Ht 160 cm; Wt 77.1 kg
[~2025-05-18 02:36] MED LIST changes: +AMIO200T33 PO; +APIX5TAB PO; +FURO40TA4 PO; +LANS30CA57 PO
--- NOTE | 2025-05-18 02:46 | ECG ---
[facility] Test Date: 2025-05-18 Test Time: 02:39:50 Pat Name: CURTIS PASCUAL Department: ED Room: [address] [place] [address] Gender: M Rinkman: LORE : 1955 Requested By: EMERGENCY EMERGENCY Order Number: [id number] Reading MD: Henri Forbes Measurements Intervals [place] Rate: 107 P: 39 VT: 132 QRS: 78 QRSD: 151 T: 268 QT: 365 QTc: 487 Interpretive Statements Sinus tachycardia Left bundle branch block Baseline wander in lead(s) I,III,aVL,V4,V5,V6 Electronically Signed On 05-18-2025 11:46:25 PST by Henri Forbes Please click the below link to view image of tracing.
--- NOTE | 2025-05-18 02:50 | ED.PDOC ---
History of Present Illness HPI Comments 70-year-old male with a past medical history of CHF, DM, CABG. Presents to the ED with a chief complaint of shortness of breath onset today. Per EMS, patient was experiencing shortness of breath, family called 911, upon their arrival patient was pale, cool to touch, hypertensive with a BP of 167 systolic. Patient was on 6 L of O2 NC, with an O2 sat of 66%. He was given a breathing treatment in route to ED, placed on on an NRB, O2 sat improved to 89%. Per EMS, patient was brought to ED 05/13/25 for similar symptoms, was discharged a few days ago, currently has PICC line in place for antibiotics. No other symptoms or modifying factors present at this time. PHYSICAL EXAM: General: moderate respiratory distress Skin: Skin in warm, dry and intact. Appropriate color for ethnicity. HEENT: The head is normocephalic and atraumatic. Conjunctivae are clear without exudates or hemorrhage. Sclera is non-icteric. Eyelids are normal in appearance without swelling or lesions. Oral mucosa is pink and moist Neck: The neck is supple with normal range of motion. No JVD. Cardiac: Heart rate and rhythm are normal. No murmurs, gallops, or rubs are auscultated. Respiratory: wheezing and rhonchi bilaterally. moderate respiratory distress Abdominal: Abdomen is soft, non-tender without distention, guarding or rigidity. Bowel sounds are present and normoactive in all four quadrants. Extremities: 1+ pitting edema bilaterally lower extremities Neurological: The patient is awake, alert and oriented to person, place, and time with normal speech. Speech is clear. There is no facial asymmetry. Psychiatric: Appropriate mood and affect. Good judgement and insight. REVIEW OF SYSTEMS: General: No fever, no chills, or fatigue HEENT: No sore throat, no earache, no congestion, no neck pain. Cardiac: No chest pain. No palpitations. Lungs: shortness of breath. GI: No nausea, no vomiting, no diarrhea, no constipation, no abdominal pain : No dysuria, frequency, or urgency. No hematuria. Musculoskeletal: No joint pain , no joint swelling, no extremity edema. Skin: No rash, no itching. Neuro: No headache, no dizziness, no weakness (And as sated in HPI) Chief Complaint: Shortness of Breath Time Seen by : 02:40 Reviewed Notes: Medications, Allergies Allergies: Coded Allergies: NO KNOWN ALLERGIES (Unverified , 11/10/24) Home Meds Reported Medications Amiodarone Hcl (Amiodarone Hcl) 200 Mg Tab, 200 MG PO Q12HR for 30 Days 05/14/25 Furosemide (Furosemide) 40 Mg Tab, 40 MG PO BIDD for 30 Days, MG 05/14/25 Lansoprazole (Lansoprazole) 30 Mg Cap, 1 CAP PO DAILY, #30 CAP 5 Refills 05/14/25 Apixaban Base (ELIQUIS) 5 Mg Tab, 5 MG PO BID, TAB 05/14/25 Metformin Hydrochloride (Metformin Hcl) 1,000 Mg Tab, 1 TAB PO BIDWM for DIABETES TAKE WITH MORNING AND EVENING MEALS 01/09/25 Insulin Glargine (Lantus Solostar) 100 Unit/Ml Inj, 30 UNIT SC QPM for DIABETES 01/09/25 Gabapentin (Gabapentin) 100 Mg Cap, 1 CAP PO HS for NEUROPATHY 01/09/25 Ferrous Sulfate Dried (Iron High Potency) 65 Mg Tab, 1 TAB PO BID for SUPPLEMENT 01/09/25 Cholecalciferol (Vitamin D3) 1,000 Unit Cap, 1 CAP PO DAILY for SUPPLEMENT 01/09/25 Amlodipine Besylate (Amlodipine Besylate) 10 Mg Tab, 1 TAB PO QAM for HYPERTENSION 01/09/25 Aspirin (Aspirin Low Dose) 81 Mg Chw, 1 TAB PO DAILY for HEART ATTACK PREVENTION 10/15/23 Insulin Glargine (Lantus Solostar) 100 Unit/Ml Inj, 20 UNIT SC QAM for DIABETES 10/15/23 Atorvastatin Calcium (Lipitor) 40 Mg Tab, 1 TAB PO HS for HIGH CHOLESTEROL 10/15/23 Losartan Potassium (Losartan Potassium) 100 Mg Tab, 1 TAB PO QAM for HYPERTENSION 10/15/23 Glimepiride (Glimepiride) 4 Mg Tab, 1 TAB PO BID for DIABETES 10/15/23 Information Source: Patient, Emergency Med Personnel Mode of Arrival: EMS Severity: Moderate Timing: Hours Duration: Since onset Prehospital treatment: Breathing Tx, Oxygen Past Medical History PAST MEDICAL HISTORY: CHF, DM Surgical History: CABG Family History Family History: Reviewed,noncontributory to illness, No family hx of Cancer, No family hx of DM, No family hx of Heart nahomi, No family hx of HTN, No family hx ofKidney nahomi, No family hx of Liver nahomi, No family hx of Lung nahomi, No family hx of Stroke Social History Smoker: Non-Smoker Alcohol: Denies ETOH Use Drugs: Denies Drug Use Lives In: Home Was a procedure done? Was a procedure done?: No Differential Dx Considerations may include: Differential diagnoses considered includebut arenot limited to acute Bronchitis, Asthma, COPD, Pneumothorax, PE, CHF, Pulmonary HTN, Anemia, CO Poisoning, Methemoglobinemia, Hyperventilation, Metabolic Acidosis, Pulmonary Edema, Pneumonia, ACS, Pericardial Tamponade, Anxiety, other X-Ray, Labs, Meds, VS Vital Signs Date Time Temp Pulse Resp B/P (MAP) Pulse Ox O2 Delivery O2 Flow Rate FiO2 05/18/25 04:30 117/45 05/18/25 04:00 98.1 77 26 125/46 100 100 98.1 05/18/25 04:00 77 18 125/46 (72) 100 05/18/25 03:00 30 91 Bi-Pap+ 100 100 05/18/25 02:55 98 Nasal BiPAP Mask 100 05/18/25 02:54 98.1 107 30 158/59 (92) 87 98.1 05/18/25 02:45 107 30 87 Bi-Pap+ 16 100 100 05/18/25 02:39 107 05/18/25 02:39 99.0 120 32 167/76 85 99.0 Lab Test 05/18/25 03:55 05/18/25 03:05 05/18/25 03:02 05/18/25 02:50 Range/Units Troponin I High Sensitivity 46 18 </=54 ng/L Influenza Type A Antigen Negative Negative Influenza Type B Antigen Negative Negative SARS-CoV-2 Antigen (Rapid) Negative NEGATIVE Blood Gas Specimen Type Arterial Blood Gas Sample Site Right radial Blood Gas Patient Temperature 37.0 Arterial Blood Date Drawn [id number] Arterial Blood pH 7.334 L 7.350-7.450 Arterial Blood Partial Pressure CO2 35.5 35.0-48.0 mmHg Arterial Blood Partial Pressure O2 117.0 H 83.0-108.0 mmHg Arterial Blood HCO3 18.5 L 21.0-28.0 mmol/L Arterial Blood Oxygen Saturation 97.7 94.0-98.0 % Arterial Blood Base Excess -6.7 L -2.0-3.0 mmol/L Arterial Blood Oxyhemoglobin 96.6 94.0-98.0 % Arterial Blood Carboxyhemoglobin 0.7 0.5-1.5 % Arterial Blood Methemoglobin 0.4 0.0-1.5 % Indra Test Modified Blood Gas Total Hemoglobin 9.90 L 13.5-17.5 g/dL Blood Gas Modality Mask - bipap FiO2 % 100.0 Blood Gas EPAP 6 Blood Gas IPAP 12 White Blood Count 14.2 H 4.4-10.8 10^3/uL Red Blood Count 3.22 L 4.5-5.90 10^6/uL Hemoglobin 9.1 L 13.5-17.5 g/dL Hematocrit 27.8 L 41.0-53.0 % Mean Corpuscular Volume 86.3 80.0-100.0 fL Mean Corpuscular Hemoglobin 28.4 28.0-32.0 pg Mean Corpuscular Hemoglobin Concent 32.9 32.0-36.0 g/dL Red Cell Distribution Width 16.2 H 11.8-14.3 % Platelet Count 329 140-450 10^3/uL Mean Platelet Volume 7.5 6.9-10.8 fL Neutrophils (%) (Auto) 78.5 37.0-80.0 % Lymphocytes (%) (Auto) 10.9 10.0-50.0 % Monocytes (%) (Auto) 9.6 0.0-12.0 % Eosinophils (%) (Auto) 0.9 0.0-7.0 % Basophils (%) (Auto) 0.1 0.0-2.0 % Neutrophils # (Auto) 11.1 H 1.6-8.6 10 ^3/uL Lymphocytes # (Auto) 1.6 0.4-5.4 10 ^3/uL Monocytes # (Auto) 1.4 H 0-1.3 10 ^3/uL Eosinophils # (Auto) 0.1 0-0.8 10 ^3/uL Basophils # (Auto) 0 0-0.2 10 ^3/uL Nucleated Red Blood Cells 0.0 % Sodium Level 138 136-145 mmol/L Potassium Level 4.5 3.5-5.1 mmol/L Chloride Level 103 98-107 mmol/L Carbon Dioxide Level 20 20-31 mmol/L Anion Gap 15 5-15 Blood Urea Nitrogen 24 H 9-23 mg/dL Creatinine 1.62 H 0.700-1.30 mg/dL Glomerular Filtration Rate Calc 45 >90 mL/min BUN/Creatinine Ratio 14.8 10.0-20.0 Serum Glucose 316 H 74-106 mg/dL Hemoglobin A1c 7.2 H <5.7 % A1C Lactic Acid Level 4.5 *H 0.4-2.0 mmol/L Calcium Level 8.8 8.7-10.4 mg/dL Total Bilirubin 0.6 0.2-1.0 mg/dL Aspartate Amino Transferase (AST) 68 H 13-40 U/L Alanine Aminotransferase (ALT) 88 H 7-40 U/L Alkaline Phosphatase 123 H 46-116 U/L B-Type Natriuretic Peptide 549.46 0-100 pg/mL Total Protein 7.3 5.7-8.2 g/dL Albumin 4.0 3.2-4.8 g/dL Current Medications Medications (Trade) Dose Ordered Sig/Ankur Route Start Time Stop Time Status Last Admin Furosemide (Lasix Injection) 40 mg ONCE ONCE IV 05/18/25 04:30 05/18/25 04:31 DC 05/18/25 04:30 Ceftriaxone Sodium 50 ml @ 100 mls/hr ONCE ONCE IV 05/18/25 04:30 05/18/25 04:59 DC 05/18/25 04:37 Vancomycin HCl 250 ml @ 250 mls/hr ONCE ONCE IV 05/18/25 04:30 05/18/25 05:29 DC 05/18/25 05:00 Time of 1ST Reevaluation: 03:10 Reevaluation 1ST: Unchanged Patient Education/Counseling: Other (Need for admission) Family Education/Counseling: No Family Present SEPSIS Sepsis Screen Physician Orders Electrocardigram (05/18/25 02:42) Chest Xray 1 View (05/18/25 02:44) Communication Order (05/18/25 02:46) Abg W/ Co-Ox (05/18/25 02:49) Blood Culture (05/18/25 03:09) BIPAP (05/18/25 03:28) Vital Signs Date Time Temp Pulse Resp B/P (MAP) Pulse Ox O2 Delivery O2 Flow Rate FiO2 05/18/25 04:30 117/45 05/18/25 04:00 98.1 77 26 125/46 100 100 98.1 05/18/25 04:00 77 18 125/46 (72) 100 05/18/25 03:00 30 91 Bi-Pap+ 100 100 05/18/25 02:55 98 Nasal BiPAP Mask 100 05/18/25 02:54 98.1 107 30 158/59 (92) 87 98.1 05/18/25 02:45 107 30 87 Bi-Pap+ 16 100 100 05/18/25 02:39 107 05/18/25 02:39 99.0 120 32 167/76 85 99.0 Laboratory Tests Test 05/18/25 02:50 Lactic Acid Level 4.5 mmol/L (0.4-2.0) *H White Blood Count 14.2 10^3/uL (4.4-10.8) H Departure 1 Departure Time of Disposition: 04:24 Impression: Primary Impression: CHF exacerbation Disposition: ADMITTED INPATIENT Condition: Serious Comments MDM: 70-year-old male with a history of CHF arrived to the emergency department in respiratory distress. He was started on BiPAP. Patient admitted to hospitalist service for further treatment, evaluation and monitoring. Extensive evaluation was performed in attempt to identify or rule out: (See differential diagnosis section) The following tests were ordered, and results were reviewed by me and discussed with patient: (See diagnostic results section) The following test were independently interpreted by me: EKG, chest [id number] edema/pleural effusion I reviewed the following notes from the pt's past medical encounters: N/A Additional information was gathered from interviewing the following independent historians: EMS personnel Addressed an acute or chronic illness that poses a threat to life or bodily function: CHF exacerbation, hypoxia Decision regarding hospitalization or escalation of hospital level of care: Risk and benefits of admission for further treatment of patient's condition was consi dered. Due to patient's current clinical condition, high risk of decline and poor outcome if discharged and need for further inpatient management and monitoring, patient will be admitted to the hospital. Drug therapy requiring intensive monitoring for toxicity: IV furosemide Regarding hospitalization or escalation of hospital level of care: Risks and benefits of admission for further treatment of patient's condition was considered however due to patient's stable condition patient will be discharged to follow up closely or return to care for worsening of condition or inability to follow up. Critical Care Note Critical Care Time?: No Stability Stability form required: No Heart Score Heart Score: Heart Score Response (Comments) Value History N/A 0 EKG N/A 0 Age N/A 0 Risk Factors N/A 0 Troponin N/A 0 Total 0 I personally scribed for JACQUI MIRAMONTES MD ([email or web address]) on 05/18/25 at 02:50. Electronically submitted by Kiah Brar ([email or web address]). JACQUI MIRAMONTES MD May 18, 2025 02:50
[2025-05-18] MEDS: ALBUTEROL SULF 2.5 MG/0.5ML(0.5%) NEB SOLN ONE (03:00)
[2025-05-18 03:08] LABS: Hematocrit 27.8 % (41.0-53.0); Hemoglobin 9.1 g/dL (13.5-17.5); Mean Corpuscular Hemoglobin 28.4 pg (28.0-32.0); Mean Corpuscular Volume 86.3 fL (80.0-100.0); Nucleated Red Blood Cells % 0.0 %
[2025-05-18 03:13] LABS: Base Excess -6.7 mmol/L (-2.0-3.0)
[2025-05-18 03:25] LABS: Albumin 4.0 g/dL (3.2-4.8); Anion Gap 15 (5-15); BUN/Creatinine Ratio 14.8 (10.0-20.0); Bilirubin, Total 0.6 mg/dL (0.2-1.0); Calcium 8.8 mg/dL (8.7-10.4); Chloride 103 mmol/L (98-107); Potassium 4.5 mmol/L (3.5-5.1); Sodium 138 mmol/L (136-145); Total Protein 7.3 g/dL (5.7-8.2)
[2025-05-18 04:06] LABS: Alanine Aminotransferase 88 U/L (7-40); Alkaline Phosphatase 123 U/L (46-116); Blood Urea Nitrogen 24 mg/dL (9-23); Carbon Dioxide 20 mmol/L (20-31); Glucose 316 mg/dL (74-106); Lactic Acid w/Reflex 4.5 mmol/L (0.4-2.0)
[2025-05-18 04:17] LABS: COVID19 ANTIGEN SOFIA FIA NEGATIVE (NEGATIVE)
[2025-05-18] MEDS: FUROSEMIDE 40 MG/4 ML VIAL IV ONE (04:30)
[2025-05-18] MEDS ORDERED: DEXTROSE (50%) 50ML SYRG IV PRN ×2 (04:45→11:00)
[2025-05-18] MEDS ORDERED: NITROGLYCERIN 0.4 MG SL TAB SL PRN (04:45)
[2025-05-18] MEDS ORDERED: ONDANSETRON HCL 4 MG/2 ML VIAL IV PRN (04:45)
[2025-05-18] MEDS ORDERED: MORPHINE SULFATE INJ 2 MG/ml SYRG IV PRN (04:45)
--- NOTE | 2025-05-18 04:50 | DVH ---
CHEST RADIOGRAPH Indication: CHEST XRAY Technique: 1 view Comparison: None available FINDINGS: Lines and Tubes: External leads. Lungs/Pleura: Diffuse bilateral interstitial opacities. Superimposed right perihilar consolidation from the apex to the base, and left basilar consolidation. No large pleural effusion or pneumothorax. Cardiomediastinum: Cardiomegaly with post CABG change. Other: Median sternotomy wires. IMPRESSION: 1. Extensive right and left basilar consolidation suggesting multifocal pneumonia. Underlying heart failure is likely.
[2025-05-18] MEDS: VANCOMYCIN 1GM/250ML KIT 250 ML IV ONE (05:00)
[2025-05-18] MEDS: FUROSEMIDE 20 MG/2 ML VIAL IV SCH (05:43)
[2025-05-18] MEDS: GABAPENTIN 300 MG CAP PO SCH (05:44)
[2025-05-18] MEDS: InsuLIN REG 1unit/0.01ml Soln (100units/ml) SC SCH ×2 (05:44→12:02)
[2025-05-18] MEDS: ACCU-CHEK COMFORT CURVE STRIP VI SCH ×2 (05:44→11:57)
[2025-05-18] MEDS: CLOPIDOGREL BISULFATE 75 MG TAB PO SCH (10:13)
[2025-05-18] MEDS: CEFEPIME 1GM/50ML 50 ML IV SCH (10:13)
[2025-05-18] MEDS: APIXABAN 5 MG TAB PO SCH (10:13)
[2025-05-18] MEDS: METOPROLOL TARTRATE 25 MG TAB PO SCH (10:14)
[2025-05-18] MEDS: AMIODARONE HCL 200 MG TAB PO SCH (10:14)
[2025-05-18] MEDS: LOSARTAN POTASSIUM 50 MG TAB PO SCH (10:14)
[2025-05-18] MEDS: IPRATROPIUM BROM 0.5 MG/2.5ML INH SOL NEB SCH (12:08)
[2025-05-18] MEDS: LEVALBUTEROL HCL 1.25 MG/3 ML NEB NEB SCH (12:09)
[2025-05-18] MEDS: ACETAMINOPHEN 325 MG TAB PO PRN (12:54)
--- NOTE | 2025-05-18 13:41 | DVHPN2 ---
Subjective Continues to report having shortness of breath Reviewed: Care Plan, H&P, Labs, Medications Changes from previous H/P or p: No Changes General: Per HPI Objective Vitals Vital Signs Date Time Temp Pulse Resp B/P (MAP) Pulse Ox O2 Delivery O2 Flow Rate FiO2 05/18/25 12:54 101.1 05/18/25 12:45 72 140/63 96 Facial BiPAP Mask 60 05/18/25 12:00 20 05/18/25 02:45 16 General Appearance: Alert, Oriented X3, Cooperative, moderate distress HEENT: Atraumatic, PERRLA Lungs: Other (Rhonchi in right lobe) Cardiovascular: Normal S1, Normal S2 Abdomen: Normal bowel sounds, Soft, No tenderness Musculoskeletal: Normal sensory function, Normal motor function Skin: Dry, Intact Psych/Mental Status: Mental status NL, Mood NL Medications Current Medications Medications Dose Ordered Sig/Ankur Route Start Time Stop Time Status Last Admin Dose Admin Cefepime HCl 50 ml @ 12.5 mls/hr Q12HR IV 05/18/25 10:00 05/18/25 10:13 12.5 MLS/HR Furosemide 20 mg BIDD IV 05/18/25 06:00 05/18/25 05:43 20 MG Apixaban 5 mg BID PO 05/18/25 10:00 05/18/25 10:13 5 MG Gabapentin 300 mg TID PO 05/18/25 06:00 05/18/25 05:44 300 MG Amiodarone HCl 200 mg Q12HR PO 05/18/25 10:00 05/18/25 10:14 200 MG Clopidogrel Bisulfate 75 mg DAILY PO 05/18/25 10:00 05/18/25 10:13 75 MG Metoprolol Tartrate 25 mg BID PO 05/18/25 10:00 05/18/25 10:14 25 MG Atorvastatin Calcium 40 mg HS PO 05/18/25 22:00 Ondansetron HCl 4 mg Q4HP PRN IV 05/18/25 04:45 Acetaminophen 650 mg Q6HP PRN PO 05/18/25 04:45 05/18/25 12:54 650 MG Nitroglycerin 0.4 mg Q5MINP PRN SL 05/18/25 04:45 Morphine Sulfate 2 mg Q30M PRN IV 05/18/25 04:45 Linezolid 300 ml @ 150 mls/hr Q12HR IV 05/18/25 22:00 UNV Levalbuterol HCl 1.25 mg Q6HR NEB 05/18/25 12:00 05/18/25 12:09 1.25 MG Ipratropium [place] 0.5 mg Q6HR NEB 05/18/25 12:00 05/18/25 12:08 0.5 MG Pantoprazole Sodium 40 mg DAILY IV 05/19/25 10:00 UNV Diagnostic Test (Pha) 1 strip IQ4HR 05/18/25 12:00 05/18/25 11:57 1 STRIP Insulin Human Regular IQ4HR SC 05/18/25 12:00 05/18/25 12:02 9 UNITS Dextrose 50 ml UD PRN IV 05/18/25 11:00 Insulin Glargine 15 units HS SC 05/18/25 22:00 Laboratory Results Laboratory Tests 05/18/25 02:50 Chemistry Test 05/18/25 02:50 Albumin 4.0 g/dL (3.2-4.8) Calcium Level 8.8 mg/dL (8.7-10.4) Total Protein 7.3 g/dL (5.7-8.2) Coagulation Test 05/18/25 04:50 D-Dimer, Quantitative 3.05 mg/L FEU (0.0-0.49) H Cardiac Markers Test 05/18/25 02:50 B-Type Natriuretic Peptide 549.46 pg/mL (0-100) LFT Test 05/18/25 02:50 Alanine Aminotransferase (ALT) 88 U/L (7-40) H Alkaline Phosphatase 123 U/L (46-116) H Aspartate Amino Transferase (AST) 68 U/L (13-40) H Total Bilirubin 0.6 mg/dL (0.2-1.0) HgA1c, TSH Test 05/18/25 02:50 Hemoglobin A1c 7.2 % A1C (<5.7) H Blood Gas Results Test 05/18/25 03:02 Arterial Blood pH 7.334 (7.350-7.450) FiO2 % 100.0 Labs and/or images reviewed: Labs reviewed by me, Image(s) reviewed by me Assessment/Plan Assessment/Plan Impression: -Acute Hypoxic Respiratory Failure -CAD with previous CABG -DM -Community Acquired PNA, Gram +/ Gram - -? hx of Afib -NSTEMI ? type II -Sepsis -? Acute systolic and diastolic HF Plan: -continue BiPAP to keep saturation greater than 91% -continue cefepime, and Zyvox -bronchodilators -continue Eliquis and Plavix -cardiology consultation -PPI -echocardiogram -sputum culture -Repeat labs, chest x-ray, ABG Critical care time spent with patient discussing and formulating plan of care: 40 minutes. This does not include time spent performing procedures. This medical document was created using an electronic medical record system with [employer] dictation system. Although this document has been carefully reviewed, there may still be some phonetic and typographical errors. These areas are purely typographical due to imperfections of the software programs, and do not reflect any compromise in the patient's medical care. Plan discussed with: Patient, Other (RN) My Orders Orders - CRISTIAN BUTT NP Procedure Category Date Status Time Linezolid 600mg/300ml PHA 05/18/25 Logged (Zyvox) 22:00 Levalbuterol Hcl PHA 05/18/25 In Process (Xopenex Medneb) 12:00 Ipratropium Medneb PHA 05/18/25 In Process (Atrovent Medneb) 12:00 Transfer Orders XFER 05/18/25 Transmitted 10:54 Pantoprazole PHA 05/19/25 Logged (Protonix) 10:00 Troponin-I Hs LAB 05/18/25 In Process 11:54 Troponin-I Hs LAB 05/18/25 Logged 13:54 Glucose Blood PHA 05/18/25 In Process (Accu-Chek Comfort 12:00 Insulin R (Human) PHA 05/18/25 In Process (Insulin R) 12:00 Dextrose 50% Syringe PHA 05/18/25 In Process 11:00 Insulin Lantus PHA 05/18/25 In Process (Glargine) (Lantus) 22:00 Micafungin Sodium PHA 05/19/25 Verified (Mycamine) 10:00 Date of Service: May 18, 2025 Billing Provider: CRISTIAN BUTT NP Common Visit Codes: [id number] CARE 30-74 MIN CRISTIAN BUTT NP May 18, 2025 13:41
--- NOTE | 2025-05-18 15:30 | DVHINCON2 ---
Date Seen: May 18, 2025 Referring Physician JOVANY Wu Reason for Consultation NSTEMI, history of recent CABG History of Present Illness This is a 70-year-old male patient who presents to emergency room with chief complaint of worsening shortness of breath for one day prior to emergency room arrival. The patient's daughter is at bedside and able to assist with medical history. The patient reports he was recently seen at this facility and discharged on 05/15/2025 where he was diagnosed with acute hypoglycemia. Previous to that visit the patient was at this facility for sepsis and a diabetic foot ulcer in which a PICC line was placed 04/25/25 and the patient has been receiving home IV antibiotics. Cardiology has been consulted at this time for elevated troponin level. Initial twelve lead electrocardiogram found in patient's chart reveals sinus tachycardia with underlying left bundle branch block with baseline wander in multiple leads (left bundle branch block seen in previous EKG's seen via cardio seismic observer system). Initial troponin level of 18ng/L with significant up trend and peak level at 766ng/L. The patient denies any chest pain at time of assessment. Significant past medical history includes severe coronary artery disease s/p triple-vessel CABG on 01/16/2025 (on ASA), congestive heart failure, peripheral arterial disease, questionable atrial fibrillation (patient unsure but noted to take Amiodarone and Eliquis), hypertension, dyslipidemia, pulmonary hypertension, insulin-dependent type 2 diabetes mellitus, history of CVA without residual deficit, and obesity. The patient states that he follows up with a senior analytical chemist in the outpatient setting, but is unsure of his name. Past Medical History Past medical history reviewed. No other significant than mentioned above. Past Surgical History Triple-vessel CABG on 01/16/2025 at [facility] [employer] of right peroneal artery on 04/24/2025 Family History: Diabetes mellitus G8 MOTHER, G8 FATHER, Family History Family history reviewed. Social History Denies the use of tobacco, alcohol or illicit drugs. Allergies: Coded Allergies: NO KNOWN ALLERGIES (Unverified , 11/10/24) Home Meds Reported Medications Amiodarone Hcl (Amiodarone Hcl) 200 Mg Tab, 200 MG PO Q12HR for 30 Days 05/14/25 Furosemide (Furosemide) 40 Mg Tab, 40 MG PO BIDD for 30 Days, MG 05/14/25 Lansoprazole (Lansoprazole) 30 Mg Cap, 1 CAP PO DAILY, #30 CAP 5 Refills 05/14/25 Apixaban Base (ELIQUIS) 5 Mg Tab, 5 MG PO BID, TAB 05/14/25 Metformin Hydrochloride (Metformin Hcl) 1,000 Mg Tab, 1 TAB PO BIDWM for DIABETES TAKE WITH MORNING AND EVENING MEALS 01/09/25 Insulin Glargine (Lantus Solostar) 100 Unit/Ml Inj, 30 UNIT SC QPM for DIABETES 01/09/25 Gabapentin (Gabapentin) 100 Mg Cap, 1 CAP PO HS for NEUROPATHY 01/09/25 Ferrous Sulfate Dried (Iron High Potency) 65 Mg Tab, 1 TAB PO BID for SUPPLEMENT 01/09/25 Cholecalciferol (Vitamin D3) 1,000 Unit Cap, 1 CAP PO DAILY for SUPPLEMENT 01/09/25 Amlodipine Besylate (Amlodipine Besylate) 10 Mg Tab, 1 TAB PO QAM for HYPERTENSION 01/09/25 Aspirin (Aspirin Low Dose) 81 Mg Chw, 1 TAB PO DAILY for HEART ATTACK PREVENTION 10/15/23 Insulin Glargine (Lantus Solostar) 100 Unit/Ml Inj, 20 UNIT SC QAM for DIABETES 10/15/23 Atorvastatin Calcium (Lipitor) 40 Mg Tab, 1 TAB PO HS for HIGH CHOLESTEROL 10/15/23 Losartan Potassium (Losartan Potassium) 100 Mg Tab, 1 TAB PO QAM for HYPERTENSION 10/15/23 Glimepiride (Glimepiride) 4 Mg Tab, 1 TAB PO BID for DIABETES 10/15/23 Home Meds Home medications reviewed. Current Medications Current Medications Medications (Trade) Dose Ordered Sig/Ankur Route PRN Reason Start Time Stop Time Status Last Admin Cefepime HCl 50 ml @ 12.5 mls/hr Q12HR IV 05/18/25 10:00 05/18/25 10:13 Furosemide (Lasix Injection) 20 mg BIDD IV 05/18/25 06:00 05/18/25 05:43 Apixaban (Eliquis) 5 mg BID PO 05/18/25 10:00 05/18/25 10:13 Gabapentin (Neurontin Capsule) 300 mg TID PO 05/18/25 06:00 05/18/25 14:12 Amiodarone HCl (Cordarone Tablet) 200 mg Q12HR PO 05/18/25 10:00 05/18/25 10:14 Clopidogrel Bisulfate (Plavix) 75 mg DAILY PO 05/18/25 10:00 05/18/25 10:13 Metoprolol Tartrate (Lopressor Tablet) 25 mg BID PO 05/18/25 10:00 05/18/25 10:14 Losartan Potassium (Cozaar Tablet) 50 mg DAILY PO 05/18/25 10:00 05/18/25 11:01 DC 05/18/25 10:14 Atorvastatin Calcium (Lipitor) 40 mg HS PO 05/18/25 22:00 Diagnostic Test (Pha) (Accu-Chek Comfort Curve T) 1 strip Q6HR 05/18/25 06:00 05/18/25 11:01 DC 05/18/25 05:44 Insulin Human Regular (InsuLIN R) Q6HR SC 05/18/25 06:00 05/18/25 11:01 DC 05/18/25 05:44 Dextrose 50 ml UD PRN IV Blood Sugar LESS THAN 60 05/18/25 04:45 05/18/25 11:01 DC Ondansetron HCl (Zofran) 4 mg Q4HP PRN IV NAUSEA / VOMITING 05/18/25 04:45 Acetaminophen (Tylenol Tablet) 650 mg Q6HP PRN PO PAIN SCALE 1-3 OR TEMP>100.4 05/18/25 04:45 05/18/25 12:54 Nitroglycerin (Ntrostat Sublingual) 0.4 mg Q5MINP PRN SL FOR CHEST PAIN 05/18/25 04:45 Morphine Sulfate 2 mg Q30M PRN IV FOR CHEST PAIN 05/18/25 04:45 Linezolid 300 ml @ 150 mls/hr Q12HR IV 05/18/25 22:00 UNV Levalbuterol HCl (Xopenex Medneb) 1.25 mg Q6HR NEB 05/18/25 12:00 05/18/25 12:09 Ipratropium [place] (Atrovent Medneb) 0.5 mg Q6HR NEB 05/18/25 12:00 05/18/25 12:08 Pantoprazole Sodium (Protonix) 40 mg DAILY IV 05/19/25 10:00 UNV Diagnostic Test (Pha) (Accu-Chek Comfort Curve T) 1 strip IQ4HR 05/18/25 12:00 05/18/25 11:57 Insulin Human Regular (InsuLIN R) IQ4HR SC 05/18/25 12:00 05/18/25 12:02 Dextrose 50 ml UD PRN IV Blood Sugar LESS THAN 60 05/18/25 11:00 Insulin Glargine (Lantus) 15 units HS SC 05/18/25 22:00 Micafungin Sodium 100 mg/Sodium Chloride 100 ml @ 100 mls/hr DAILY IV 05/19/25 10:00 UNV Review of Systems Constitutional: No symptom reported Ears, Nose, & Throat: No symptom reported Eyes: No symptom reported Neurological: No symptoms reported Pulmonary/Respiratory: Shortness of breath Cardiovascular: No symptom reported Gastrointestinal: No symptom reported Genitourinary: No symptom reported Musculoskeletal: No symptom reported Skin: No symptom reported Psychiatric: No symptom reported Endocrine: No symptom reported Hematologic/Lymphatic: No symptom reported Vital Signs Vital Signs Date Time Temp Pulse Resp B/P (MAP) Pulse Ox O2 Delivery O2 Flow Rate FiO2 05/18/25 14:28 76 140/55 90 Facial BiPAP Mask 60 05/18/25 13:59 101.1 05/18/25 12:55 32 05/18/25 02:45 16 Physical Exam General Appearance: Cooperative. No acute distress. Pulmonary/Respiratory: Diminished bilateral lower lobes. On BiPAP machine during assessment Cardiovascular/Chest: Regular rate and rhythm. Peripheral Pulses: 2+ Radial (R). 2+ Radial (L). 2+ Pedal (R). 2+ Pedal (L) Abdominal Exam: Normal bowel sounds. Soft, non-tender. Ankle Exam: Negative ankle edema Lower extremities: Negative lower extremity edema Neuro/Mental Status: A/OX4, coherent. Thoughts/Psych: Normal thought pattern. Appropriate mood and affect. Good judgment and insight. Appearance: No acute distress. Skin Exam: Right great toe ulcer. Warm and dry. Labs/Diagnostic Data Labs Test 05/18/25 14:43 05/18/25 11:55 05/18/25 04:57 05/18/25 04:50 Range/Units POC Glucose 292 H 70-106 mg/dl Lactic Acid Level 3.2 *H 0.4-2.0 mmol/L D-Dimer, Quantitative 3.05 H 0.0-0.49 mg/L FEU Test 05/18/25 03:05 05/18/25 03:02 05/18/25 02:50 Range/Units Influenza Type A Antigen Negative Negative Influenza Type B Antigen Negative Negative SARS-CoV-2 Antigen (Rapid) Negative NEGATIVE Blood Gas Specimen Type Arterial Blood Gas Sample Site Right radial Blood Gas Patient Temperature 37.0 Arterial Blood Date Drawn [id number] Arterial Blood pH 7.334 L 7.350-7.450 Arterial Blood Partial Pressure CO2 35.5 35.0-48.0 mmHg Arterial Blood Partial Pressure O2 117.0 H 83.0-108.0 mmHg Arterial Blood HCO3 18.5 L 21.0-28.0 mmol/L Arterial Blood Oxygen Saturation 97.7 94.0-98.0 % Arterial Blood Base Excess -6.7 L -2.0-3.0 mmol/L Arterial Blood Oxyhemoglobin 96.6 94.0-98.0 % Arterial Blood Carboxyhemoglobin 0.7 0.5-1.5 % Arterial Blood Methemoglobin 0.4 0.0-1.5 % Indra Test Modified Blood Gas Total Hemoglobin 9.90 L 13.5-17.5 g/dL Blood Gas Modality Mask - bipap FiO2 % 100.0 Blood Gas EPAP 6 Blood Gas IPAP 12 White Blood Count 14.2 H 4.4-10.8 10^3/uL Red Blood Count 3.22 L 4.5-5.90 10^6/uL Hemoglobin 9.1 L 13.5-17.5 g/dL Hematocrit 27.8 L 41.0-53.0 % Mean Corpuscular Volume 86.3 80.0-100.0 fL Mean Corpuscular Hemoglobin 28.4 28.0-32.0 pg Mean Corpuscular Hemoglobin Concent 32.9 32.0-36.0 g/dL Red Cell Distribution Width 16.2 H 11.8-14.3 % Platelet Count 329 140-450 10^3/uL Mean Platelet Volume 7.5 6.9-10.8 fL Neutrophils (%) (Auto) 78.5 37.0-80.0 % Lymphocytes (%) (Auto) 10.9 10.0-50.0 % Monocytes (%) (Auto) 9.6 0.0-12.0 % Eosinophils (%) (Auto) 0.9 0.0-7.0 % Basophils (%) (Auto) 0.1 0.0-2.0 % Neutrophils # (Auto) 11.1 H 1.6-8.6 10 ^3/uL Lymphocytes # (Auto) 1.6 0.4-5.4 10 ^3/uL Monocytes # (Auto) 1.4 H 0-1.3 10 ^3/uL Eosinophils # (Auto) 0.1 0-0.8 10 ^3/uL Basophils # (Auto) 0 0-0.2 10 ^3/uL Nucleated Red Blood Cells 0.0 % Sodium Level 138 136-145 mmol/L Potassium Level 4.5 3.5-5.1 mmol/L Chloride Level 103 98-107 mmol/L Carbon Dioxide Level 20 20-31 mmol/L Anion Gap 15 5-15 Blood Urea Nitrogen 24 H 9-23 mg/dL Creatinine 1.62 H 0.700-1.30 mg/dL Glomerular Filtration Rate Calc 45 >90 mL/min BUN/Creatinine Ratio 14.8 10.0-20.0 Serum Glucose 316 H 74-106 mg/dL Hemoglobin A1c 7.2 H <5.7 % A1C Calcium Level 8.8 8.7-10.4 mg/dL Total Bilirubin 0.6 0.2-1.0 mg/dL Aspartate Amino Transferase (AST) 68 H 13-40 U/L Alanine Aminotransferase (ALT) 88 H 7-40 U/L Alkaline Phosphatase 123 H 46-116 U/L B-Type Natriuretic Peptide 549.46 0-100 pg/mL Total Protein 7.3 5.7-8.2 g/dL Albumin 4.0 3.2-4.8 g/dL Assessment NSTEMI Sepsis Acute hypoxic respiratory failure secondary to pneumonia Severe coronary artery disease s/p triple-vessel CABG on 01/16/2025 (on ASA) Chronic HFpEF, NYHA class III Questionable history of atrial fibrillation (on Eliquis and Amiodarone) Hypertension Dyslipidemia Peripheral arterial disease status post [employer] ASS[employer]ANT to right peroneal artery Pulmonary hypertension Insulin-dependent type 2 diabetes mellitus Chronic kidney disease History of CVA without residual deficits Obesity Plan/Recommendation We will continue with the following plan/recommendations (Dr. Forbes): * Transthoracic echocardiogram to evaluate cardiac function and wall motion * Previous echo from 02/07/2025 reveals EF of 60%, RVSP 45 mmHg * Single antiplatelet therapy and lipid-lowering agent * Therapeutic Lovenox while inpatient; transition back to DOAC when appropriate * Close cardiac surveillance * Antibiotics per primary care team Case discussed with . EKG and pertinent lab values reviewed. Elevated troponin level likely in the setting of demand ischemia. Further recommendations per clinical course and progression. Thank you for allowing us to care for this patient. Please call with any questions or concerns. Critical care time spent: 44 minutes This medical document was created using an electronic medical record system with voice recognition software and computerized dictation system. Although this document has been carefully reviewed, there might still be some phonetic and ty pographical errors. Occasional wrong-word or ``sound-alike substitutions may have occurred due to the inherent limitations of voice recognition software. These areas are purely typographical due to imperfections of the software programs and do not reflect any compromise in the patient's medical care. Please read the chart carefully and recognize, using context, where these sub stitutions have occurred. Plan discussed with: Patient NYHA Physical activity limitations: Class3(Marked) ordinary (activity causes symtoms) Date of Service: May 18, 2025 Billing Provider: ISAI ZELAYA Cardiology Common Codes: 75931-SKAKIOQ INP/OBS CARE (High) Cardiology Consultation Codes: [id number] CONSULT <45MIN ISAI ZELAYA May 18, 2025 15:30
--- NOTE | 2025-05-18 17:50 | DVHSR ---
APPROVED REPORT EXAM: Two-dimensional and M-mode echocardiogram with Doppler and color Doppler. Blood Pressure: 126/57 mmHg INDICATION EF RISK FACTORS Height: 5'3", Weight: 160 DIMENSIONS LVDd 4.9 (3.8-5.7cm) LA (2D) 4.3 (1.9-4.0cm) Aortic Root 3.0 (2.0-3.7cm) LVDs 3.7 (2.5-4.0cm) LA (MM) (1.9-4.0cm) Aortic Cusp Exc 1.1 (1.5-2.0cm) EF (%) 50.0 (55-70%) Rt. Atrium 3.9 (1.9-4.0cm) Asc. Aorta cm IVSd 1.0 (0.7-1.1cm) RV (D) (1.8-2.4cm) PWd 1.0 (0.7-1.1cm) Mitral Valve Mitral Mitral Stenosis E wave 1.16m/s MV Mean GR. mmHg A wave 0.85m/s MV Peak GR. mmHg E/A ratio 1.4 2D MVA cm2 DECEL Time 147ms PRESS 1/2 Time ms Aortic Valve Aortic Valve Aortic Stenosis V1 1.21m/s AO Mean GR. 5mmHg V2 1.45m/s AO Peak GR. 8mmHg LVOT Diameter 2.0 (1.8-2.4cm) Doppler VALDO 2.62cm2 Pulmonic Valve V2 1.26m/s Tricuspid Valve TR Velocity 2.70m/s RVSP 32mmHg Conclusion Technically good study. Sinus rhythm. Concentric LVH with left atrial enlargement. Sclerosis of the right coronary cusp however good excursion of the leaflets. Mild mitral annular calcification and thickening of the posterior mitral leaflet. Tricuspid and pulmonic or structurally normal. Left ventricular function is preserved however there is mild anterior hypokinesis and abnormal septal motion given a bundle branch block. Mild MR. [id number] tricuspid insufficiency. No pericardial effusion masses or vegetations.
--- NOTE | 2025-05-18 18:07 | DVHHP2 ---
History of Present Illness Reason for Visit: Shortness for breath History of Present Illness 70-year-old male presents for evaluation of shortness for breath. Patient endorses a two day history of worsening shortness for breath with associated chest tightness. Also reports having a nonproductive cough. No fever or chills. Past Medical History Diabetes mellitus, hypertension, atrial fibrillation, congestive heart failure Past Surgical History CABG Family History Noncontributory Smoke: No ALCOHOL: none Drugs: None Review of Systems Review of Systems Review of systems are currently negative otherwise addressed in HPI. Allergies: Coded Allergies: NO KNOWN ALLERGIES (Unverified , 11/10/24) Medications Current Medications Medications Dose Ordered Sig/Ankur Route Start Time Stop Time Status Last Admin Dose Admin Cefepime HCl 50 ml @ 12.5 mls/hr Q12HR IV 05/18/25 10:00 05/18/25 10:13 12.5 MLS/HR Furosemide 20 mg BIDD IV 05/18/25 06:00 05/18/25 05:43 20 MG Gabapentin 300 mg TID PO 05/18/25 06:00 05/18/25 14:12 300 MG Amiodarone HCl 200 mg Q12HR PO 05/18/25 10:00 05/18/25 10:14 200 MG Clopidogrel Bisulfate 75 mg DAILY PO 05/18/25 10:00 05/18/25 10:13 75 MG Metoprolol Tartrate 25 mg BID PO 05/18/25 10:00 05/18/25 10:14 25 MG Ondansetron HCl 4 mg Q4HP PRN IV 05/18/25 04:45 Acetaminophen 650 mg Q6HP PRN PO 05/18/25 04:45 05/18/25 12:54 650 MG Nitroglycerin 0.4 mg Q5MINP PRN SL 05/18/25 04:45 Morphine Sulfate 2 mg Q30M PRN IV 05/18/25 04:45 Linezolid 300 ml @ 150 mls/hr Q12HR IV 05/18/25 22:00 Levalbuterol HCl 1.25 mg Q6HR NEB 05/18/25 12:00 05/18/25 12:09 1.25 MG Ipratropium [place] 0.5 mg Q6HR NEB 05/18/25 12:00 05/18/25 12:08 0.5 MG Pantoprazole Sodium 40 mg DAILY IV 05/19/25 10:00 Diagnostic Test (Pha) 1 strip IQ4HR 05/18/25 12:00 05/18/25 16:27 1 STRIP Insulin Human Regular IQ4HR SC 05/18/25 12:00 05/18/25 16:28 6 UNITS Dextrose 50 ml UD PRN IV 05/18/25 11:00 Insulin Glargine 15 units HS SC 05/18/25 22:00 Micafungin Sodium 100 mg/Sodium Chloride 100 ml @ 100 mls/hr DAILY IV 05/19/25 10:00 Enoxaparin Sodium 70 mg Q12HR SC 05/18/25 22:00 UNV Atorvastatin Calcium 80 mg HS PO 05/18/25 22:00 UNV Exam Vital Signs Vital Signs Date Time Temp Pulse Resp B/P (MAP) Pulse Ox O2 Delivery O2 Flow Rate FiO2 05/18/25 17:00 71 26 143/61 (88) 91 05/18/25 16:00 98.0 98.0 05/18/25 15:51 Facial BiPAP Mask 60 05/18/25 02:45 16 Exam Gen: 70-year-old male in moderate distress Skin: Warm, dry, normal color and texture, no rash. HEENT: Normocephalic atraumatic, mucous membranes moist and pink. Neck: Cervical and supraclavicular nodes normal without enlargement, trachea is midline, thyroid gland is normal without masses. Pulmonary: Clear to auscultation and percussion bilaterally. Cardiac: Regular rate and rhythm. No murmur Abdomen: Soft, nontender, nondistended, bowel sounds present all 4 quadrants, no guarding, no rigidity, no organomegaly. Extremities: No cyanosis, clubbing, no edema Neuro: Cranial nerves II through XII grossly intact, normal affect and speech, no focal motor deficits. Labs/Xrays ORDERING PHYSICIAN: JACQUI MIRAMONTES MD PROCEDURE(s): CXR1 - CHEST XRAY 1 VIEW REASON: CHEST XRAY ORDER NUMBER(s): [id number], ACCESSION NUMBER(s): [id number] CHEST RADIOGRAPH Indication: CHEST XRAY Technique: 1 view Comparison: None available FINDINGS: Lines and Tubes: External leads. Lungs/Pleura: Diffuse bilateral interstitial opacities. Superimposed right perihilar consolidation from the apex to the base, and left basilar consolidation. No large pleural effusion or pneumothorax. Cardiomediastinum: Cardiomegaly with post CABG change. Other: Median sternotomy wires. IMPRESSION: 1. Extensive right and left basilar consolidation suggesting multifocal pneumonia. Underlying heart failure is likely. Labs Test 05/18/25 14:43 05/18/25 11:55 05/18/25 04:57 05/18/25 04:50 Range/Units Troponin I High Sensitivity 559 *H </=54 ng/L POC Glucose 292 H 70-106 mg/dl Lactic Acid Level 3.2 *H 0.4-2.0 mmol/L D-Dimer, Quantitative 3.05 H 0.0-0.49 mg/L FEU Test 05/18/25 03:05 05/18/25 03:02 05/18/25 02:50 Range/Units Influenza Type A Antigen Negative Negative Influenza Type B Antigen Negative Negative SARS-CoV-2 Antigen (Rapid) Negative NEGATIVE Blood Gas Specimen Type Arterial Blood Gas Sample Site Right radial Blood Gas Patient Temperature 37.0 Arterial Blood Date Drawn [id number] Arterial Blood pH 7.334 L 7.350-7.450 Arterial Blood Partial Pressure CO2 35.5 35.0-48.0 mmHg Arterial Blood Partial Pressure O2 117.0 H 83.0-108.0 mmHg Arterial Blood HCO3 18.5 L 21.0-28.0 mmol/L Arterial Blood Oxygen Saturation 97.7 94.0-98.0 % Arterial Blood Base Excess -6.7 L -2.0-3.0 mmol/L Arterial Blood Oxyhemoglobin 96.6 94.0-98.0 % Arterial Blood Carboxyhemoglobin 0.7 0.5-1.5 % Arterial Blood Methemoglobin 0.4 0.0-1.5 % Indra Test Modified Blood Gas Total Hemoglobin 9.90 L 13.5-17.5 g/dL Blood Gas Modality Mask - bipap FiO2 % 100.0 Blood Gas EPAP 6 Blood Gas IPAP 12 White Blood Count 14.2 H 4.4-10.8 10^3/uL Red Blood Count 3.22 L 4.5-5.90 10^6/uL Hemoglobin 9.1 L 13.5-17.5 g/dL Hematocrit 27.8 L 41.0-53.0 % Mean Corpuscular Volume 86.3 80.0-100.0 fL Mean Corpuscular Hemoglobin 28.4 28.0-32.0 pg Mean Corpuscular Hemoglobin Concent 32.9 32.0-36.0 g/dL Red Cell Distribution Width 16.2 H 11.8-14.3 % Platelet Count 329 140-450 10^3/uL Mean Platelet Volume 7.5 6.9-10.8 fL Neutrophils (%) (Auto) 78.5 37.0-80.0 % Lymphocytes (%) (Auto) 10.9 10.0-50.0 % Monocytes (%) (Auto) 9.6 0.0-12.0 % Eosinophils (%) (Auto) 0.9 0.0-7.0 % Basophils (%) (Auto) 0.1 0.0-2.0 % Neutrophils # (Auto) 11.1 H 1.6-8.6 10 ^3/uL Lymphocytes # (Auto) 1.6 0.4-5.4 10 ^3/uL Monocytes # (Auto) 1.4 H 0-1.3 10 ^3/uL Eosinophils # (Auto) 0.1 0-0.8 10 ^3/uL Basophils # (Auto) 0 0-0.2 10 ^3/uL Nucleated Red Blood Cells 0.0 % Sodium Level 138 136-145 mmol/L Potassium Level 4.5 3.5-5.1 mmol/L Chloride Level 103 98-107 mmol/L Carbon Dioxide Level 20 20-31 mmol/L Anion Gap 15 5-15 Blood Urea Nitrogen 24 H 9-23 mg/dL Creatinine 1.62 H 0.700-1.30 mg/dL Glomerular Filtration Rate Calc 45 >90 mL/min BUN/Creatinine Ratio 14.8 10.0-20.0 Serum Glucose 316 H 74-106 mg/dL Hemoglobin A1c 7.2 H <5.7 % A1C Calcium Level 8.8 8.7-10.4 mg/dL Total Bilirubin 0.6 0.2-1.0 mg/dL Aspartate Amino Transferase (AST) 68 H 13-40 U/L Alanine Aminotransferase (ALT) 88 H 7-40 U/L Alkaline Phosphatase 123 H 46-116 U/L B-Type Natriuretic Peptide 549.46 0-100 pg/mL Total Protein 7.3 5.7-8.2 g/dL Albumin 4.0 3.2-4.8 g/dL SEPSIS Sepsis Screen Date sepsis recognized/suspect: May 18, 2025 Time Sepsis recognized/suspect: 749 Recent Procedure: No On Antibiotic Therapy: Yes Respiratory Rate >20: Yes Heart Rate >90: No Temp<36 C (96.8 F) or >38.3 C: No SBP <90 or MAP <65 mmHG: No New Acute Mental Status Change: No Is the patient on CPAP, BIPAP,: Yes Physician Orders Linezolid 600mg/300ml (Zyvox) (05/18/25 22:00) Levalbuterol Hcl (Xopenex Medneb) (05/18/25 12:00) Ipratropium Medneb (Atrovent Medneb) (05/18/25 12:00) Transfer Orders (05/18/25 10:54) Pantoprazole (Protonix) (05/19/25 10:00) Glucose Blood (Accu-Chek Comfort Curve T (05/18/25 12:00) Insulin R (Human) (Insulin R) (05/18/25 12:00) Dextrose 50% Syringe (05/18/25 11:00) Insulin Lantus (Glargine) (Lantus) (05/18/25 22:00) Micafungin Sodium (Mycamine) (05/19/25 10:00) * Cardiology Consult (05/18/25 13:29) Enoxaparin Sodium (Lovenox) (05/18/25 22:00) Atorvastatin (Lipitor) (05/18/25 22:00) Vital Signs Date Time Temp Pulse Resp B/P (MAP) Pulse Ox O2 Delivery O2 Flow Rate FiO2 05/18/25 17:00 71 26 143/61 (88) 91 05/18/25 16:00 98.0 68 17 135/63 (87) 96 98.0 05/18/25 16:00 69 05/18/25 15:51 68 136/58 95 Facial BiPAP Mask 60 05/18/25 15:00 99.9 70 18 141/58 (85) 94 99.9 05/18/25 14:28 76 140/55 90 Facial BiPAP Mask 60 05/18/25 14:00 100.2 79 21 140/55 (83) 93 100.2 05/18/25 13:59 101.1 05/18/25 13:00 101.1 73 33 132/63 (86) 91 101.1 05/18/25 12:55 74 32 91 05/18/25 12:54 101.1 05/18/25 12:45 72 140/63 96 Facial BiPAP Mask 60 05/18/25 12:45 72 34 92 05/18/25 12:45 92 Bi-Pap+ 60 60 05/18/25 12:00 65 05/18/25 12:00 99.7 68 20 143/61 (88) 94 99.7 05/18/25 11:10 66 130/56 05/18/25 11:00 99.5 66 20 130/56 (80) 95 99.5 05/18/25 10:28 72 140/55 96 Facial BiPAP Mask 60 05/18/25 10:14 140/55 05/18/25 10:14 76 140/55 Medications Medications Dose Ordered Sig/Ankur Route Start Time Stop Time Status Last Admin Dose Admin Amiodarone HCl 200 mg Q12HR PO 05/18/25 10:00 05/18/25 10:14 200 MG Apixaban 5 mg BID PO 05/18/25 10:00 05/18/25 17:31 DC 05/18/25 10:13 5 MG Cefepime HCl 50 ml @ 12.5 mls/hr Q12HR IV 05/18/25 10:00 05/18/25 10:13 12.5 MLS/HR Clopidogrel Bisulfate 75 mg DAILY PO 05/18/25 10:00 05/18/25 10:13 75 MG Diagnostic Test (Pha) 1 strip IQ4HR 05/18/25 12:00 05/18/25 16:27 1 STRIP Insulin Human Regular IQ4HR SC 05/18/25 12:00 05/18/25 16:28 6 UNITS Ipratropium [place] 0.5 mg Q6HR NEB 05/18/25 12:00 05/18/25 12:08 0.5 MG Levalbuterol HCl 1.25 mg Q6HR NEB 05/18/25 12:00 05/18/25 12:09 1.25 MG Losartan Potassium 50 mg DAILY PO 05/18/25 10:00 05/18/25 11:01 DC 05/18/25 10:14 50 MG Metoprolol Tartrate 25 mg BID PO 05/18/25 10:00 05/18/25 10:14 25 MG Assessment/Plan Assessment/Plan Assessment Acute on chronic respiratory failure Multifocal pneumonia CHF exacerbation Early sepsis NSTEMI Diabetes mellitus Plan Admit the patient to [facility] to the hospitalist Cardiology consultation Cefepime/vancomycin IV Lasix Resume home medications Continue treatment per orders. Total critical care time excluding procedures performed this 50 minutes. Plan discussed with: Patient My Orders Orders - VALENTEIRAGUILLERMO AGACNP Procedure Category Date Status Time Cefepime 1gm/50ml PHA 05/18/25 In Process (Maxipime 1gm/50ml) 10:00 Furosemide Injection PHA 05/18/25 In Process (Lasix Injection) 06:00 Gabapentin Capsule PHA 05/18/25 In Process (Neurontin Capsule) 06:00 Amiodarone Tablet PHA 05/18/25 In Process (Cordarone Tablet) 10:00 Clopidogrel Bisulfate PHA 05/18/25 In Process (Plavix) 10:00 Metoprolol Tartrate PHA 05/18/25 In Process Tablet (Lopressor Ta 10:00 Basic Metabolic Panel LAB 05/19/25 Verified 04:00 Admit ADMIT 05/18/25 Transmitted 04:43 Ondansetron Hcl PHA 05/18/25 In Process (Zofran) 04:45 Complete Blood Count LAB 05/19/25 Verified 04:00 Cardiac DIET 05/18/25 Transmitted Diet-2gna,Lofat,Lochol Breakfast Echo 2d Mode Cardiac US 05/18/25 Resulted DOP 04:43 Condition: Fair BECKY 05/18/25 In Process 04:43 Acetaminophen Tablet PHA 05/18/25 In Process (Tylenol Tablet) 04:45 Bedrest With Bathroom BECKY 05/18/25 In Process Privileg 04:43 Nitroglycerin PHA 05/18/25 In Process Sublingual (Ntrostat 04:45 Morphine Sulfate PHA 05/18/25 In Process Injection 04:45 Stat Ekg For Chest BECKY 05/18/25 In Process Pain 04:43 Notify Of Changes BECKY 05/18/25 In Process From Base 04:43 Assembled Wood Products Repairer For BECKY 05/18/25 In Process 24 Hours 04:43 Emergency Dysrhythmia [facility] 05/18/25 In Process Protocol 04:43 Rhythm Strips Once [facility] 05/18/25 In Process Every Shift 04:43 Oxygen By Nasal RT 05/18/25 Transmitted Cannula 04:43 Date of Service: May 18, 2025 Billing Provider: IRA VALENTE Common Visit Codes: [id number] CARE 30-74 MIN IRA VALENTE May 18, 2025 18:07
[2025-05-18] MEDS: ATORVASTATIN 20 MG TAB PO SCH (21:02)
[2025-05-18] MEDS: ENOXAPARIN SOD 80 MG/0.8ML SYRINGE SC SCH (21:02)
[2025-05-18 21:04] LABS: Urine Protein, UAD Negative (Negative)
[2025-05-18] MEDS ORDERED: ATORVASTATIN 20 MG TAB PO SCH (22:00)
[2025-05-18] MEDS: INSULIN LANTUS (GLARGINE) 1 /0.01ml (100units/ml) SC SCH (22:00)
[2025-05-18] MEDS: LINEZOLID 600MG/300ML 300 ML IV SCH (22:12)
[2025-05-19] VITALS (35 sets, daily range): BP systolic 101–176; BP diastolic 49–132; PULSE 74–118; RESP 9–25; TEMP 101.5–102.7; O2SAT 82–100
[2025-05-19] MEDS: LORazepam 2MG/ML-1ML VIAL IV PRN (00:39)
[2025-05-19 05:07] LABS: Hematocrit 23.6 % (41.0-53.0); Hemoglobin 7.8 g/dL (13.5-17.5); Mean Corpuscular Hemoglobin 27.6 pg (28.0-32.0); Mean Corpuscular Volume 83.8 fL (80.0-100.0); Nucleated Red Blood Cells % 0.0 %
[2025-05-19 05:19] LABS: Anion Gap 11 (5-15); Carbon Dioxide 24 mmol/L (20-31); Chloride 103 mmol/L (98-107); Sodium 138 mmol/L (136-145)
[2025-05-19 05:21] LABS: Calcium 8.9 mg/dL (8.7-10.4)
[2025-05-19 05:26] LABS: BUN/Creatinine Ratio 16.3 (10.0-20.0)
[2025-05-19 05:28] LABS: Blood Urea Nitrogen 23 mg/dL (9-23); Glucose 117 mg/dL (74-106); Potassium 3.4 mmol/L (3.5-5.1)
[2025-05-19 06:52] LABS: Base Excess 0.6 mmol/L (-2.0-3.0)
--- NOTE | 2025-05-19 08:49 | DVH ---
CHEST RADIOGRAPH Indication: pna Technique: 1 view Comparison: XY CHEST XRAY 1 VIEW on DOS: 05/18/25, XY CHEST PORTABLE on DOS: 05/13/25, XY CHEST PORTABLE on DOS: 02/15/25, XY CHEST XRAY 1 VIEW on DOS: 02/14/25, XY CHEST PORTABLE on DOS: 02/14/25, XY CHEST XRAY 1 VIEW on DOS: 05/18/25 FINDINGS: Lines and Tubes: External leads. Lungs/Pleura: Diffuse bilateral interstitial opacities. Superimposed right perihilar consolidation from the apex to the base, and left basilar consolidation. No large pleural effusion or pneumothorax. Cardiomediastinum: Cardiomegaly with post CABG change. Other: Median sternotomy wires. IMPRESSION: 1. Extensive right and left basilar consolidation suggesting multifocal pneumonia. Underlying heart failure is likely.
[2025-05-19] MEDS: POTASSIUM CHLORIDE 40 MEQ, LIDOCAINE 1% (LOCAL ANESTH.) 4 ML in SODIUM CHL 0.9% 250 ML IV ONE (09:57)
[2025-05-19] MEDS: MICAFUNGIN SODIUM 100 MG in SODIUM CHL 0.9% 100 ML IV SCH (10:00)
[2025-05-19] MEDS: ETOMIDATE (2MG/ML) 20ML VIAL IV ONE ×3 (10:11→10:30)
[2025-05-19] MEDS: ROCURONIUM 10MG/ML 10ML VIAL IV ONE ×4 (10:12→23:23)
--- NOTE | 2025-05-19 10:22 | DVHPN2 ---
Consult Progress Note Subjective Other Systems: Patient in normal sinus rhythm with left bundle branch block on health and wellness director. The patient denies any cardiac symptoms at time of assessment During assessment, patient is on BiPAP with Fio2 100% Objective vital signs Vital Sign Date Time Temp Pulse Resp B/P (MAP) Pulse Ox O2 Delivery O2 Flow Rate FiO2 05/19/25 09:56 144/47 05/19/25 09:30 81 22 94 05/19/25 08:18 Facial BiPAP Mask 100 05/19/25 07:30 99.1 99.1 05/18/25 02:45 16 Total Intake and Output 05/18/25 05/18/25 05/19/25 15:00 23:00 07:00 Intake Total 50 ml 12.5 ml 337.5 ml Output Total 240 ml 680 ml Balance 50 ml -227.5 ml -342.5 ml medications Current Medications Medications Dose Ordered Sig/Ankur Route Start Time Stop Time Status Last Admin Dose Admin Cefepime HCl 50 ml @ 12.5 mls/hr Q12HR IV 05/18/25 10:00 05/18/25 21:09 12.5 MLS/HR Furosemide 20 mg BIDD IV 05/18/25 06:00 05/19/25 09:56 20 MG Gabapentin 300 mg TID PO 05/18/25 06:00 05/19/25 05:43 300 MG Amiodarone HCl 200 mg Q12HR PO 05/18/25 10:00 05/18/25 21:03 200 MG Clopidogrel Bisulfate 75 mg DAILY PO 05/18/25 10:00 05/18/25 10:13 75 MG Metoprolol Tartrate 25 mg BID PO 05/18/25 10:00 05/18/25 21:03 25 MG Ondansetron HCl 4 mg Q4HP PRN IV 05/18/25 04:45 Acetaminophen 650 mg Q6HP PRN PO 05/18/25 04:45 05/19/25 02:01 650 MG Nitroglycerin 0.4 mg Q5MINP PRN SL 05/18/25 04:45 Morphine Sulfate 2 mg Q30M PRN IV 05/18/25 04:45 Linezolid 300 ml @ 150 mls/hr Q12HR IV 05/18/25 22:00 05/18/25 22:12 150 MLS/HR Levalbuterol HCl 1.25 mg Q6HR NEB 05/18/25 12:00 05/19/25 06:29 1.25 MG Ipratropium [place] 0.5 mg Q6HR NEB 05/18/25 12:00 05/19/25 06:29 0.5 MG Pantoprazole Sodium 40 mg DAILY IV 05/19/25 10:00 Diagnostic Test (Pha) 1 strip IQ4HR 05/18/25 12:00 05/19/25 09:05 1 STRIP Insulin Human Regular IQ4HR SC 05/18/25 12:00 05/18/25 21:01 2 UNITS Dextrose 50 ml UD PRN IV 05/18/25 11:00 Insulin Glargine 15 units HS SC 05/18/25 22:00 Micafungin Sodium 100 mg/Sodium Chloride 100 ml @ 100 mls/hr DAILY IV 05/19/25 10:00 Enoxaparin Sodium 70 mg Q12HR SC 05/18/25 22:00 05/18/25 21:02 70 MG Atorvastatin Calcium 80 mg HS PO 05/18/25 22:00 05/18/25 21:02 80 MG Lorazepam 0.5 mg Q8HP PRN IV 05/19/25 00:15 05/19/25 00:39 0.5 MG Examination: GENERAL:Abnormal, LUNGS:Abnormal (On BiPAP, FiO2 100%), CVS:Normal, NEURO:Normal laboratory and microbiology Laboratory Tests 05/19/25 04:26 Test 05/19/25 04:26 Range/Units Serum Glucose 117 #H 74-106 mg/dL Problem List/Assessment/Plan Problem List/Assessment/Plan NSTEMI Sepsis Acute hypoxic respiratory failure secondary to pneumonia Severe coronary artery disease s/p triple-vessel CABG on 01/16/2025 (on ASA) Chronic HFpEF, NYHA class III Questionable history of atrial fibrillation (on Eliquis and Amiodarone) Hypertension Dyslipidemia Peripheral arterial disease status post TUTOR COORDINATOR to right 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 Forbes): * Transthoracic echocardiogram reveals EF 50%, left ventricular function is preserved however there is mild anterior hypokinesis and abnormal septal motion given a bundle branch block * Single antiplatelet therapy and lipid-lowering agent * Therapeutic Lovenox while inpatient; transition back to DOAC when appropriate * Close cardiac surveillance * Antibiotics per primary care team Case discussed with . EKG and pertinent lab values reviewed. Elevated troponin level likely in the setting of demand ischemia. Further recommendations per clinical course and progression. Thank you for allowing us to care for this patient. Please call with any questions or concerns. Critical care time spent: 38 minutes. This medical document was created using an electronic medical record system with voice recognition software and computerized dictation system. Although this document has been carefully reviewed, there might still be some phonetic and typographical errors. Occasional wrong-word or ``sound-alike substitutions may have occurred due to the inherent limitations of voice recognition software. These areas are purely typographical due to imperfections of the software programs and do not reflect any compromise in the patient's medical care. Please read the chart carefully and recognize, using context, where these substitutions have occurred. Plan discussed with: Patient Date of Service: May 19, 2025 Billing Provider: ISAI ZELAYA Common Visit Codes: [id number] CARE 30-74 MIN ISAI ZELAYA May 19, 2025 10:22
[2025-05-19] MEDS: MIDAZOLAM DRIP 100 mg/100mL NS 100 ML IV ONE (10:30)
[2025-05-19] MEDS: MIDAZOLAM DRIP 100 mg/100mL NS 100 ML IV SCH (11:00)
[2025-05-19 11:57] LABS: Base Excess -2.6 mmol/L (-2.0-3.0)
--- NOTE | 2025-05-19 12:04 | DVH ---
EXAM: XY CHEST XRAY 1 VIEW Indication: S/P INTUBATION AND CENTRAL LINE PLACEMENT Technique: Single frontal view of the chest was obtained Comparison: XY CHEST XRAY 1 VIEW on DOS: 05/19/25, XY CHEST XRAY 1 VIEW on DOS: 05/18/25, XY CHEST PORTABLE on DOS: 05/13/25, XY CHEST PORTABLE on DOS: 02/15/25, XY CHEST XRAY 1 VIEW on DOS: 02/14/25 FINDINGS: Lines and Tubes: Endotracheal tube projects approximately 6.3 cm above the aishwarya. Enteric tube tip projects over the expected region stomach. Right internal jugular central venous catheter tip projects over the cavoatrial junction. Lungs: Multifocal consolidative opacities Pleura: No effusion. No pneumothorax. Cardiomediastinal contours: Cardiomegaly. Bones: No acute osseous abnormality. IMPRESSION: Interval placement of lines and tubes as detailed above.
[2025-05-19] MEDS ORDERED: NOREPINEPHRINE 8 MG/250ML KIT 250 ML IV SCH (13:15)
--- NOTE | 2025-05-19 13:16 | DVHPN2 ---
Subjective Continues to report having shortness of breath Reviewed: Care Plan, H&P, Labs, Medications Changes from previous H/P or p: No Changes General: Per HPI Objective Vitals Vital Signs Date Time Temp Pulse Resp B/P (MAP) Pulse Ox O2 Delivery O2 Flow Rate FiO2 05/19/25 12:05 91 20 129/61 (83) 99 100 05/19/25 08:18 Facial BiPAP Mask 05/19/25 07:30 99.1 99.1 05/18/25 02:45 16 Intake/Output Intake and Output 05/19/25 07:00 Intake Total 400.0 ml Output Total 920 ml Balance -520.0 ml Intake IV Total 400.0 ml Output Urine Total 920 ml General Appearance: Alert, Oriented X3, Cooperative, moderate distress HEENT: Atraumatic, PERRLA Lungs: Other (Bilateral rhonchi) Cardiovascular: Normal S1, Normal S2 Abdomen: Normal bowel sounds, Soft, No tenderness Musculoskeletal: Normal sensory function, Normal motor function Skin: Dry, Intact Psych/Mental Status: Mental status NL, Mood NL Medications Current Medications Medications Dose Ordered Sig/Ankur Route Start Time Stop Time Status Last Admin Dose Admin Cefepime HCl 50 ml @ 12.5 mls/hr Q12HR IV 05/18/25 10:00 05/18/25 21:09 12.5 MLS/HR Furosemide 20 mg BIDD IV 05/18/25 06:00 05/19/25 09:56 20 MG Gabapentin 300 mg TID PO 05/18/25 06:00 05/19/25 05:43 300 MG Amiodarone HCl 200 mg Q12HR PO 05/18/25 10:00 05/18/25 21:03 200 MG Clopidogrel Bisulfate 75 mg DAILY PO 05/18/25 10:00 05/18/25 10:13 75 MG Ondansetron HCl 4 mg Q4HP PRN IV 05/18/25 04:45 Acetaminophen 650 mg Q6HP PRN PO 05/18/25 04:45 05/19/25 02:01 650 MG Nitroglycerin 0.4 mg Q5MINP PRN SL 05/18/25 04:45 Linezolid 300 ml @ 150 mls/hr Q12HR IV 05/18/25 22:00 05/18/25 22:12 150 MLS/HR Levalbuterol HCl 1.25 mg Q6HR NEB 05/18/25 12:00 05/19/25 06:29 1.25 MG Ipratropium [place] 0.5 mg Q6HR NEB 05/18/25 12:00 05/19/25 06:29 0.5 MG Pantoprazole Sodium 40 mg DAILY IV 05/19/25 10:00 Diagnostic Test (Pha) 1 strip IQ4HR 05/18/25 12:00 05/19/25 09:05 1 STRIP Insulin Human Regular IQ4HR SC 05/18/25 12:00 05/18/25 21:01 2 UNITS Dextrose 50 ml UD PRN IV 05/18/25 11:00 Insulin Glargine 15 units HS SC 05/18/25 22:00 Micafungin Sodium 100 mg/Sodium Chloride 100 ml @ 100 mls/hr DAILY IV 05/19/25 10:00 05/19/25 10:00 100 MLS/HR Enoxaparin Sodium 70 mg Q12HR SC 05/18/25 22:00 05/18/25 21:02 70 MG Lorazepam 0.5 mg Q8HP PRN IV 05/19/25 00:15 05/19/25 00:39 0.5 MG Fentanyl Citrate 250 ml @ 2.5 mls/hr Q24H IV 05/19/25 11:30 Norepinephrine Bitartrate 250 ml @ 3.75 mls/hr Q24H IV 05/19/25 13:15 UNV Laboratory Results Laboratory Tests 05/19/25 04:26 Chemistry Test 05/19/25 04:26 Calcium Level 8.9 mg/dL (8.7-10.4) Urinalysis Test 05/18/25 20:20 Urine Color Colorless (Yellow) Urine Clarity Clear (Clear) Urine pH 5.5 (5.0-9.0) Urine Specific [place] 1.008 (1.001-1.035) Urine Protein Negative (Negative) Urine Ketones Negative (Negative) Urine Blood Trace /uL (Negative) H Urine Nitrite Negative (Negative) Urine Bilirubin Negative (Negative) Urine Urobilinogen Normal mg/dL (Negative) Urine Leukocyte Esterase 2+ /uL (Negative) Urine RBC 3 /hpf (0 - 3) Urine Microscopic WBC 57 /HPF (0-3) H Urine Squamous Epithelial Cells None seen /hpf (<5) Urine Bacteria None seen /hpf (None Seen) Urine Glucose Normal mg/dL (Normal) Blood Gas Results Test 05/19/25 06:40 05/19/25 11:50 Arterial Blood pH 7.445 (7.350-7.450) 7.366 (7.350-7.450) FiO2 % 100.0 100.0 Microbiology Microbiology Date/Time Source Procedure Growth Status 05/18/25 03:07 Blood Blood Culture - Preliminary NO GROWTH AFTER 24 HOURS OF INCUBATION. Resulted Labs and/or images reviewed: Labs reviewed by me, Image(s) reviewed by me Assessment/Plan Assessment/Plan Impression: -Acute Hypoxic Respiratory Failure -CAD with previous CABG -DM -Community Acquired PNA, Gram +/ Gram - -? hx of Afib -NSTEMI ? type II -Sepsis -acute on chronic diastolic heart failure Plan: Events: Patient had worsening respiratory status despite being on BiPAP overnight. FiO2 is at 100%. Worsening bilateral infiltrates. Long discussion made with the patient, daughter, as well as patient's who are all agreeable to have the patient electively intubated at this time. Patient was intubated he has been an 8.0 ET tube with glide scope. Patient placed on pressure control settings with a PEEP of 12. Central line was also placed by myself. -continue cefepime, and Zyvox -bronchodilators -anticoagulation per Cardiology -PPI -echocardiogram recommendations reviewed -sputum culture: Pending -Repeat labs, chest x-ray, ABG in a.m. Critical care time spent with patient discussing and formulating plan of care: 90 minutes. This does not include time spent performing procedures. This medical document was created using an electronic medical record system with [employer] dictation system. Although this document has been carefully reviewed, there may still be some phonetic and typographical errors. These areas are purely typographical due to imperfections of the software programs, and do not reflect any compromise in the patient's medical care. Plan discussed with: Patient, Spouse, Daughter, Other (RN) My Orders Orders - CRISTIAN BUTT NP Procedure Category Date Status Time Micafungin Sodium PHA 05/19/25 In Process (Mycamine) 10:00 * Cardiology Consult CONS 05/18/25 Transmitted 13:29 Abg W/ Co-Ox RT 05/19/25 Logged 06:52 Chest Xray 1 View XY 05/19/25 Resulted 06:52 Complete Blood Count LAB 05/20/25 Verified 04:00 Comprehensive LAB 05/20/25 Verified Metabolic Panel 04:00 Abg W/ Co-Ox RT 05/19/25 Logged 11:45 Respiratory Culture JOVANNY 05/19/25 In Process W/ Gs 10:46 Ventilator Orders RT 05/19/25 Transmitted 10:45 Fentanyl Drip PHA 05/19/25 In Process 2500mcg/250mlns 11:30 Rass Sedation Scale BECKY 05/19/25 In Process 11:29 Norepinephrine 8 PHA 05/19/25 Logged Mg/250ml Kit 13:15 Chest Portable XY 05/20/25 Logged 04:00 Abg W/ Co-Ox RT 05/20/25 Logged 04:00 Date of Service: May 19, 2025 Billing Provider: CRISTIAN BUTT NP Common Visit Codes: [id number] CARE 30-74 MIN, [id number] CARE-EACH +30MIN CRISTIAN BUTT NP May 19, 2025 13:16
--- NOTE | 2025-05-19 13:19 | DVHNC2 ---
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) Indication: Hypotension, CVP monitoring, Volume resuscitation, Inability to obtain IV Room prepared for procedure: Yes Box Chipper performed hand hygien: Yes Maximal sterile barrier precau: Mask/Eye shield, Sterile gown, Cap, Sterlie gloves, Large sterlie drape Skin Preparation: Chlorhexidine gluconate Skin preparation completely dr: Yes Insertion site: Right Central line catheter type: Uwy-slklsyjn-tie dialysis Number of lumens: 3 Central line exchanged over a: No Antiseptic ointment applied to: No Post Assessment: Chest X-Ray, Proper placement, Pneumothorax Informed consent obtained: Yes Risks/benefits/alt described: Yes Notes Estimated blood loss: 5 mL Date of Service: May 19, 2025 Billing Provider: CRISTIAN BUTT NP Common Visit Codes: PROCEDURE ONLY Procedure Codes: [id number] NON-TUNNEL CV CATH, 24464-SP GUIDE VASCULAR ACCESS CRISTIAN BUTT NP May 19, 2025 13:18
--- NOTE | 2025-05-19 13:21 | DVHNC2 ---
Intubation Indication: Respiratory Insufficiency, Airway Protection Prep: Preoxygenation Pretreated with: Sedation (Etomidate 20mg) Medicated with: Vecuronium (50mg) Intubation Approach: Orotracheal Intubation size: cm (8) Informed consent obtained: Yes Risks/benefits/alt described: Yes Notes Intubated using glide scope. Date of Service: May 19, 2025 Billing Provider: CRISTIAN BUTT NP Common Visit Codes: PROCEDURE ONLY Procedure Codes: [id number] CRISTIAN BUTT NP May 19, 2025 13:21
[2025-05-19] MEDS: fentaNYL Drip 2500mCg/250mlNS 250 ML IV SCH (13:40)
[2025-05-19] MEDS: fentaNYL Drip 2500mCg/250mlNS 250 ML IV ONE (13:57)
[2025-05-19] MEDS: PANTOPRAZOLE 40 MG/10 ML VIAL INJ IV SCH (13:57)
[2025-05-19 21:38] LABS: Hematocrit 25.0 % (41.0-53.0); Hemoglobin 8.0 g/dL (13.5-17.5)
--- NOTE | 2025-05-19 22:25 | DVH ---
INDICATION: pneumonia TECHNIQUE: Frontal view of the chest. COMPARISON: XY CHEST XRAY 1 VIEW on DOS: 05/19/25, XY CHEST XRAY 1 VIEW on DOS: 05/19/25, XY CHEST XRAY 1 VIEW on DOS: 05/18/25, XY CHEST PORTABLE on DOS: 05/13/25, XY CHEST PORTABLE on DOS: 02/15/25 FINDINGS/IMPRESSION: Endotracheal tube tip projects approximately 3 cm above the aishwarya. Nasogastric tube tip projects over the left upper quadrant, presumably in the region of the stomach. Right central venous catheter tip projects over the cavoatrial junction. There are diffuse bilateral pulmonary opacities. Unchanged c ardiomediastinal silhouette. Median sternotomy changes are redemonstrated. No definite pleural effusion or pneumothorax. Unchanged osseous structures.
[2025-05-19] MEDS: PROPOFOL 100 ML IV SCH (23:46)
[2025-05-19] MEDS: NOREPINEPHRINE 8 MG/250ML KIT 250 ML IV SCH (23:48)
[2025-05-20] VITALS (106 sets, daily range): BP systolic 91–132; BP diastolic 42–60; PULSE 57–104; RESP 16–22; TEMP 97.5–101.3; O2SAT 92–100
[2025-05-20 04:09] LABS: Hematocrit 23.9 % (41.0-53.0); Hemoglobin 7.7 g/dL (13.5-17.5); Mean Corpuscular Hemoglobin 28.1 pg (28.0-32.0); Mean Corpuscular Volume 86.6 fL (80.0-100.0); Nucleated Red Blood Cells % 0.0 %
[2025-05-20 04:34] LABS: Alkaline Phosphatase 95 U/L (46-116); Anion Gap 10 (5-15); BUN/Creatinine Ratio 15.2 (10.0-20.0); Bilirubin, Total 0.5 mg/dL (0.2-1.0); Carbon Dioxide 25 mmol/L (20-31); Chloride 104 mmol/L (98-107); Potassium 4.3 mmol/L (3.5-5.1); Sodium 139 mmol/L (136-145)
[2025-05-20 04:36] LABS: Alanine Aminotransferase 49 U/L (7-40); Albumin 3.0 g/dL (3.2-4.8); Blood Urea Nitrogen 33 mg/dL (9-23); Calcium 7.8 mg/dL (8.7-10.4); Glucose 166 mg/dL (74-106); Total Protein 5.5 g/dL (5.7-8.2)
--- NOTE | 2025-05-20 07:11 | DVH ---
CHEST RADIOGRAPH Indication: pna Technique: Single frontal view of the chest was obtained COMPARISON: XY CHEST PORTABLE on DOS: 05/19/25, XY CHEST XRAY 1 VIEW on DOS: 05/19/25, XY CHEST XRAY 1 VIEW on DOS: 05/19/25, XY CHEST XRAY 1 VIEW on DOS: 05/18/25, XY CHEST PORTABLE on DOS: 05/13/25 FINDINGS: Lines and Tubes: Endotracheal tube, enteric catheter in satisfactory position. Right central venous catheter in satisfactory position. Lungs: Pulmonary vascular congestion. Slight interval improvement in aeration. Pleura: No effusion.No pneumothorax. Cardiomediastinal contours: Median sternotomy. Cardiomegaly. Bones: Unremarkable IMPRESSION: Lines and tubes in satisfactory position. Slight interval improvement in aeration.
[2025-05-20 07:44] LABS: Base Excess -5.6 mmol/L (-2.0-3.0)
--- NOTE | 2025-05-20 08:56 | DVHPN2 ---
Reviewed: Care Plan, H&P, Labs, Medications Changes from previous H/P or p: No Changes General: Per HPI Objective Vitals Vital Signs Date Time Temp Pulse Resp B/P (MAP) Pulse Ox O2 Delivery O2 Flow Rate FiO2 05/20/25 06:45 98.6 76 18 117/54 (75) 99 209.5 05/20/25 06:03 100 05/19/25 20:00 Mechanical Ventilator+ Intake/Output Intake and Output 05/20/25 07:00 Intake Total 1626.20 ml Output Total 1000 ml Balance 626.20 ml Intake IV Total 1626.20 ml Output Urine Total 1000 ml General Appearance: Alert, Oriented X3, Cooperative, moderate distress HEENT: Atraumatic, PERRLA Lungs: Other (Bilateral rhonchi) Cardiovascular: Normal S1, Normal S2 Abdomen: Normal bowel sounds, Soft, No tenderness Musculoskeletal: Normal sensory function, Normal motor function Skin: Dry, Intact Psych/Mental Status: Mental status NL, Mood NL Medications Current Medications Medications Dose Ordered Sig/Ankur Route Start Time Stop Time Status Last Admin Dose Admin Cefepime HCl 50 ml @ 12.5 mls/hr Q12HR IV 05/18/25 10:00 05/19/25 21:22 12.5 MLS/HR Furosemide 20 mg BIDD IV 05/18/25 06:00 05/20/25 05:18 20 MG Gabapentin 300 mg TID PO 05/18/25 06:00 05/20/25 05:17 300 MG Amiodarone HCl 200 mg Q12HR PO 05/18/25 10:00 05/19/25 21:08 200 MG Clopidogrel Bisulfate 75 mg DAILY PO 05/18/25 10:00 05/19/25 10:00 75 MG Ondansetron HCl 4 mg Q4HP PRN IV 05/18/25 04:45 Acetaminophen 650 mg Q6HP PRN PO 05/18/25 04:45 05/19/25 21:22 650 MG Nitroglycerin 0.4 mg Q5MINP PRN SL 05/18/25 04:45 Linezolid 300 ml @ 150 mls/hr Q12HR IV 05/18/25 22:00 05/19/25 20:30 150 MLS/HR Levalbuterol HCl 1.25 mg Q6HR NEB 05/18/25 12:00 05/20/25 06:02 1.25 MG Ipratropium [place] 0.5 mg Q6HR NEB 05/18/25 12:00 05/20/25 06:02 0.5 MG Pantoprazole Sodium 40 mg DAILY IV 05/19/25 10:00 05/19/25 13:57 40 MG Diagnostic Test (Pha) 1 strip IQ4HR 05/18/25 12:00 05/20/25 08:16 1 STRIP Insulin Human Regular IQ4HR SC 05/18/25 12:00 05/20/25 08:19 2 UNITS Dextrose 50 ml UD PRN IV 05/18/25 11:00 Insulin Glargine 15 units HS SC 05/18/25 22:00 05/19/25 21:07 15 UNITS Micafungin Sodium 100 mg/Sodium Chloride 100 ml @ 100 mls/hr DAILY IV 05/19/25 10:00 05/19/25 10:00 100 MLS/HR Enoxaparin Sodium 70 mg Q12HR SC 05/18/25 22:00 05/19/25 21:08 70 MG Lorazepam 0.5 mg Q8HP PRN IV 05/19/25 00:15 05/19/25 00:39 0.5 MG Fentanyl Citrate 250 ml @ 2.5 mls/hr Q24H IV 05/19/25 11:30 05/20/25 05:20 20 MLS/HR Midazolam HCl 100 ml @ 1 mls/hr Q24H IV 05/19/25 17:30 05/20/25 05:17 15 MLS/HR Propofol 100 ml @ 2.61 mls/hr Q24H IV 05/19/25 23:15 05/20/25 06:16 5.22 MLS/HR Norepinephrine Bitartrate 250 ml @ 3.75 mls/hr Q24H IV 05/19/25 23:15 05/19/25 23:48 3.75 MLS/HR Laboratory Results Laboratory Tests 05/20/25 03:40 Chemistry Test 05/20/25 03:40 Albumin 3.0 g/dL (3.2-4.8) L Calcium Level 7.8 mg/dL (8.7-10.4) L Total Protein 5.5 g/dL (5.7-8.2) L LFT Test 05/20/25 03:40 Alanine Aminotransferase (ALT) 49 U/L (7-40) H Alkaline Phosphatase 95 U/L (46-116) Aspartate Amino Transferase (AST) 42 U/L (13-40) H Total Bilirubin 0.5 mg/dL (0.2-1.0) Urinalysis Test 05/18/25 20:20 Urine Color Colorless (Yellow) Urine Clarity Clear (Clear) Urine pH 5.5 (5.0-9.0) Urine Specific [place] 1.008 (1.001-1.035) Urine Protein Negative (Negative) Urine Ketones Negative (Negative) Urine Blood Trace /uL (Negative) H Urine Nitrite Negative (Negative) Urine Bilirubin Negative (Negative) Urine Urobilinogen Normal mg/dL (Negative) Urine Leukocyte Esterase 2+ /uL (Negative) Urine RBC 3 /hpf (0 - 3) Urine Microscopic WBC 57 /HPF (0-3) H Urine Squamous Epithelial Cells None seen /hpf (<5) Urine Bacteria None seen /hpf (None Seen) Urine Glucose Normal mg/dL (Normal) Blood Gas Results Test 05/19/25 11:50 05/20/25 06:38 Arterial Blood pH 7.366 (7.350-7.450) 7.219 (7.350-7.450) FiO2 % 100.0 100.0 Microbiology Microbiology Date/Time Source Procedure Growth Status 05/18/25 03:07 Blood Blood Culture - Preliminary NO GROWTH AFTER 48 HOURS OF INCUBATION. Resulted Labs and/or images reviewed: Labs reviewed by me, Image(s) reviewed by me Assessment/Plan Assessment/Plan 70-year-old male presents for evaluation of shortness for breath. Patient endorses a two day history of worsening shortness for breath with associated chest tightness. Also reports having a nonproductive cough. No fever or chills. Past Medical History Diabetes mellitus, hypertension, atrial fibrillation, congestive heart failure 05/19: Events: Patient had worsening respiratory status despite being on BiPAP overnight. FiO2 is at 100%. Worsening bilateral infiltrates. Long discussion made with the patient, daughter, as well as patient's who are all agreeable to have the patient electively intubated at this time. Patient was intubated he has been an 8.0 ET tube with glide scope. Patient placed on pressure control settings with a PEEP of 12. Central line was also placed by myself. - Maia Wu 05/20: Patient has very complicated complex pneumonia bilateral, bilateral opacities. History of CHF as well. Treating with broad-spectrum antibiotics. We will change antibiotics to cefepime/doxycycline/micafungin. Patient is on significant oxygen requirement, currently on pressure support inspiratory pressure 20, peep 12. ABG showing pCO2 55 increasing, we will increase rate from 18-22. Per oxygen patient is on 100% O2 and PEEP of 12, we will try to deescalate PEEP to 10. Currently saturating 95%. On Levophed 6, sedation on fentanyl and Diprivan and Versed. We will do conservative fluids, likely getting enough fluids with current drips in antibiotics. We will do trial of 1 time 60 Solu-Medrol. Consult pulmonology for vent management. X-ray looking improved today. Patient blood pressure very labile, he draws blood pressure with sliding movements, unsafe to do CT chest currently, we will do CT chest as soon as patient stabilizes blood pressure. We will continue q.2h turns as tolerated. This will also allow to test patient's blood pressure stability for CT chest. Otherwise continue current management from primary team. -pulmonology onboard, keeping peep high, agreed with high RR, ABG showing improving CO2. Appreciate pulmonology recommendations for ventilator Impression: -Acute Hypoxic Respiratory Failure -CAD with previous CABG -DM -Community Acquired PNA, Gram +/ Gram - -? hx of Afib -NSTEMI ? type II -Sepsis -acute on chronic diastolic heart failure Plan: -continue cefepime, and Zyvox -bronchodilators -anticoagulation per Cardiology -PPI -echocardiogram recommendations reviewed -sputum culture: Pending -Repeat labs, chest x-ray, ABG in a.m. Critical care time spent with patient discussing and formulating plan of care: 90 minutes. This does not include time spent performing procedures. Plan discussed with: Patient Date of Service: May 20, 2025 Billing Provider: KALI LYNNE MD Common Visit Codes: [id number] CARE 30-74 MIN KALI LYNNE MD May 20, 2025 08:56
[2025-05-20] MEDS: methylPREDNISolone SOD SUCC 40 MG/ML VL IV ONE (09:00)
[2025-05-20] MEDS: NYSTATIN TOPICAL POWDER 15GM TOP SCH (10:33)
[2025-05-20] MEDS: DOXYCYCLINE 100MG/100ML 100 ML IV SCH (11:32)
[2025-05-20] MEDS: BUMETANIDE 2.5mg/10ml (0.25 mg/ml) INJ IV ONE (11:33)
[2025-05-20 11:45] LABS: Base Excess -3.8 mmol/L (-2.0-3.0)
--- NOTE | 2025-05-20 13:28 | DVHINCON2 ---
Date of service: May 20, [address] Gabe Seaman Reason for Consultation Acute respiratory failure History of Present Illness History Source: Patient, RN Notes, MD Notes Exam Limitations: Clinical condition HPI Patient is a 70-year old gentleman with an extensive cardiac history who presented with shortness of breath. Was seen in the emergency room where he was found to have increasing oxygen requirements and was placed on bipap 12/6, FiO2 100%. Patient continued to decline and was intubated and placed on mechanical ventilation. After intubation there were significant difficulties ventilating patient, ventilator was changed to pressure control PEEP 12, FiO2 100%. Chest x- ray shows fluffy opacities suggestive of pneumonia vs pulmonary edema. Pulmonology was consulted to assist in management. Home Meds Reported Medications Amiodarone Hcl (Amiodarone Hcl) 200 Mg Tab, 200 MG PO Q12HR for 30 Days 05/14/25 Furosemide (Furosemide) 40 Mg Tab, 40 MG PO BIDD for 30 Days, MG 05/14/25 Lansoprazole (Lansoprazole) 30 Mg Cap, 1 CAP PO DAILY, #30 CAP 5 Refills 05/14/25 Apixaban Base (ELIQUIS) 5 Mg Tab, 5 MG PO BID, TAB 05/14/25 Metformin Hydrochloride (Metformin Hcl) 1,000 Mg Tab, 1 TAB PO BIDWM for DIABETES TAKE WITH MORNING AND EVENING MEALS 01/09/25 Insulin Glargine (Lantus Solostar) 100 Unit/Ml Inj, 30 UNIT SC QPM for DIABETES 01/09/25 Gabapentin (Gabapentin) 100 Mg Cap, 1 CAP PO HS for NEUROPATHY 01/09/25 Ferrous Sulfate Dried (Iron High Potency) 65 Mg Tab, 1 TAB PO BID for SUPPLEMENT 01/09/25 Cholecalciferol (Vitamin D3) 1,000 Unit Cap, 1 CAP PO DAILY for SUPPLEMENT 01/09/25 Amlodipine Besylate (Amlodipine Besylate) 10 Mg Tab, 1 TAB PO QAM for HYPERTENSION 01/09/25 Aspirin (Aspirin Low Dose) 81 Mg Chw, 1 TAB PO DAILY for HEART ATTACK PREVENTION 10/15/23 Insulin Glargine (Lantus Solostar) 100 Unit/Ml Inj, 20 UNIT SC QAM for DIABETES 10/15/23 Atorvastatin Calcium (Lipitor) 40 Mg Tab, 1 TAB PO HS for HIGH CHOLESTEROL 10/15/23 Losartan Potassium (Losartan Potassium) 100 Mg Tab, 1 TAB PO QAM for HYPERTENSION 10/15/23 Glimepiride (Glimepiride) 4 Mg Tab, 1 TAB PO BID for DIABETES 10/15/23 Past Medical History Cardiac: AFIB, CAD, CHF Pulmonary: No pertinent Hx Central Nervous System: No pertinent Hx GI: No pertinent Hx Hemotology/Oncology: No pertinent Hx Hepatobiliary: No pertinent Hx Psychiatric: No pertinent Hx Musculoskeletal: No pertinent Hx Rheumotologic: No pertinent Hx Infectious Disease: No peritnent Hx ENT: No pertinent Hx Renal/: No pertinent Hx Endocrine: NIDDM Dermatology: No pertinent Hx Past Surgical History: CABG Family History: DM Patient Family History: Diabetes mellitus G8 MOTHER, G8 FATHER, Smoker: No Hx (Negative) Alocohol: None Drugs: None Lives with: With family Domestic Violence: Neg Review of Systems Comments unable to perform: patient intubated and sedated H&P Exam Vital Signs Vital Signs Date Time Temp Pulse Resp B/P (MAP) Pulse Ox O2 Delivery O2 Flow Rate FiO2 05/20/25 13:00 99.3 66 22 121/52 (75) 98 210.7 05/20/25 12:10 100 05/20/25 08:00 Mechanical Ventilator+ General Appeara: Well developed, Well nourished, Normal Appearance Head Exam: Normal inspection Neck Exam: Normal inspection, Non-tender, Normal alignment Eye Exam: bilateral eye Normal inspection, bilateral eye PERRL, bilateral eye EOMI Ear Exam: bilateral ear Auricle normal, bilateral ear Canal normal, bilateral ear TM normal Nasal Exam: Normal inspection Mouth: Normal Inspection Pulmonary/Respiratory: Decreased breath sounds Cardiovascular/Chest: Normal inspection Peripheral Pulses: 4+ Radial (R), 4+ Radial (L), 4+ Brachial (R), 4+ Brachial (L) Abdominal Exam: Normal bowel sounds Labs/Xrays Labs Test 05/20/25 11:46 05/20/25 11:00 05/20/25 06:38 05/20/25 03:40 Range/Units POC Glucose 195 H 70-106 mg/dl Blood Gas Specimen Type Arterial Blood Gas Sample Site Left radial Blood Gas Patient Temperature 37.0 Arterial Blood Date Drawn [id number] Arterial Blood pH 7.307 L 7.350-7.450 Arterial Blood Partial Pressure CO2 45.8 35.0-48.0 mmHg Arterial Blood Partial Pressure O2 61.3 L 83.0-108.0 mmHg Arterial Blood HCO3 22.4 21.0-28.0 mmol/L Arterial Blood Oxygen Saturation 89.3 L 94.0-98.0 % Arterial Blood Base Excess -3.8 L -2.0-3.0 mmol/L Arterial Blood Oxyhemoglobin 89.0 L 94.0-98.0 % Arterial Blood Carboxyhemoglobin 0.2 L 0.5-1.5 % Arterial Blood Methemoglobin 0.1 0.0-1.5 % Arterial Blood Deoxyhemoglobin 10.7 H 0.0-5.0 % Indra Test Modified Blood Gas Total Hemoglobin 8.90 L 13.5-17.5 g/dL Blood Gas Set Respiration Rate 22.0 Blood Gas Modality Vent - p/c FiO2 % 100.0 Blood Gas PEEP or CPAP 12.0 Blood Gas Comments Pc 20 i-time 1.36 Blood Gas Inspiratory Pressure 20.0 Blood Gas Critical Value Read Back yes Blood Gas Notified Whom janki hawk Blood Gas Notified Time [id number] Blood Gas Notified By arleen rutledge White Blood Count 19.6 #H 4.4-10.8 10^3/uL Red Blood Count 2.76 L 4.5-5.90 10^6/uL Hemoglobin 7.7 L 13.5-17.5 g/dL Hematocrit 23.9 L 41.0-53.0 % Mean Corpuscular Volume 86.6 80.0-100.0 fL Mean Corpuscular Hemoglobin 28.1 28.0-32.0 pg Mean Corpuscular Hemoglobin Concent 32.4 32.0-36.0 g/dL Red Cell Distribution Width 17.2 H 11.8-14.3 % Platelet Count 339 140-450 10^3/uL Mean Platelet Volume 7.8 6.9-10.8 fL Neutrophils (%) (Auto) 87.7 H 37.0-80.0 % Lymphocytes (%) (Auto) 4.6 L 10.0-50.0 % Monocytes (%) (Auto) 7.0 0.0-12.0 % Eosinophils (%) (Auto) 0.6 0.0-7.0 % Basophils (%) (Auto) 0.1 0.0-2.0 % Neutrophils # (Auto) 17.2 H 1.6-8.6 10 ^3/uL Lymphocytes # (Auto) 0.9 0.4-5.4 10 ^3/uL Monocytes # (Auto) 1.4 H 0-1.3 10 ^3/uL Eosinophils # (Auto) 0.1 0-0.8 10 ^3/uL Basophils # (Auto) 0 0-0.2 10 ^3/uL Nucleated Red Blood Cells 0.0 % Sodium Level 139 136-145 mmol/L Potassium Level 4.3 3.5-5.1 mmol/L Chloride Level 104 98-107 mmol/L Carbon Dioxide Level 25 20-31 mmol/L Anion Gap 10 5-15 Blood Urea Nitrogen 33 #H 9-23 mg/dL Creatinine 2.17 H 0.700-1.30 mg/dL Glomerular Filtration Rate Calc 32 >90 mL/min BUN/Creatinine Ratio 15.2 10.0-20.0 Serum Glucose 166 H 74-106 mg/dL Calcium Level 7.8 L 8.7-10.4 mg/dL Total Bilirubin 0.5 0.2-1.0 mg/dL Aspartate Amino Transferase (AST) 42 H 13-40 U/L Alanine Aminotransferase (ALT) 49 H 7-40 U/L Alkaline Phosphatase 95 46-116 U/L Total Protein 5.5 L 5.7-8.2 g/dL Albumin 3.0 L 3.2-4.8 g/dL Test 05/19/25 06:40 05/18/25 20:20 05/18/25 14:43 05/18/25 04:57 Range/Units Blood Gas EPAP 6 Blood Gas IPAP 12 Urine Color Colorless Yellow Urine Clarity Clear Clear Urine pH 5.5 5.0-9.0 Urine Specific [place] 1.008 1.001-1.035 Urine Protein Negative Negative Urine Ketones Negative Negative Urine Blood Trace H Negative /uL Urine Nitrite Negative Negative Urine Bilirubin Negative Negative Urine Urobilinogen Normal Negative mg/dL Urine Leukocyte Esterase 2+ Negative /uL Urine RBC 3 0 - 3 /hpf Urine Microscopic WBC 57 H 0-3 /HPF Urine Squamous Epithelial Cells None seen <5 /hpf Urine Bacteria None seen None Seen /hpf Urine Glucose Normal Normal mg/dL Troponin I High Sensitivity 559 *H </=54 ng/L Lactic Acid Level 3.2 *H 0.4-2.0 mmol/L Test 05/18/25 04:50 05/18/25 03:05 05/18/25 02:50 Range/Units D-Dimer, Quantitative 3.05 H 0.0-0.49 mg/L FEU Influenza Type A Antigen Negative Negative Influenza Type B Antigen Negative Negative SARS-CoV-2 Antigen (Rapid) Negative NEGATIVE Hemoglobin A1c 7.2 H <5.7 % A1C B-Type Natriuretic Peptide 549.46 0-100 pg/mL Microbiology Date/Time Source Procedure Growth Status 05/19/25 11:21 Sputum Gram Stain - Final Resulted 05/19/25 11:21 Sputum Respiratory Culture - Preliminary No growth Resulted 05/18/25 03:07 Blood Blood Culture - Preliminary NO GROWTH AFTER 48 HOURS OF INCUBATION. Resulted Assessment/Plan Plan Impression Acute hypoxemic respiratory failure Pulmonary edema Pneumonia MENDEL Patient seen and examined Events On mechanical ventilation S/p intubation Significant difficulties ventilating patient Transitioned to pressure control PEEP 12, FiO2 100% Labs and imaging reviewed Chest x-ray shows fluff opacities, pneumonia vs pulmonary edema ABG reviewed pH 7.21, pCO2 56, pO2 85 Management Vent support Titrate to maintain sats 90% or above Sedation for vent synchrony Consider paralysis Antibiotics Bronchodilators Diurese Monitor renal function F/u nephrology, management deferred Monitor electrolytes Supplement as needed Pressors as needed for hemodynamic support To maintain a mean arterial pressure of 65 mmHg Recommend cardiology input DVT prophylaxis Critical care time 35 minutes Plan discussed with: Other (Rn) KIT RUBIO MD May 20, 2025 13:28
--- NOTE | 2025-05-20 17:08 | DVHPN2 ---
Consult Progress Note Subjective Other Systems: Patient remains in normal sinus rhythm on youth nutritional monitor. Patient is now mechanically ventilated and in the intensive care unit. Objective vital signs Vital Sign Date Time Temp Pulse Resp B/P (MAP) Pulse Ox O2 Delivery O2 Flow Rate FiO2 05/20/25 16:35 63 22 107/48 (67) 98 95 05/20/25 15:30 98.2 208.8 05/20/25 08:00 Mechanical Ventilator+ Total Intake and Output 05/19/25 05/19/25 05/20/25 15:00 23:00 07:00 Intake Total 769.0 ml 452.5 ml 456.17 ml Output Total 700 ml 300 ml Balance 769.0 ml -247.5 ml 156.17 ml medications Current Medications Medications Dose Ordered Sig/Ankur Route Start Time Stop Time Status Last Admin Dose Admin Cefepime HCl 50 ml @ 12.5 mls/hr Q12HR IV 05/18/25 10:00 05/20/25 10:25 12.5 MLS/HR Gabapentin 300 mg TID PO 05/18/25 06:00 05/20/25 15:12 300 MG Amiodarone HCl 200 mg Q12HR PO 05/18/25 10:00 05/20/25 10:25 200 MG Clopidogrel Bisulfate 75 mg DAILY PO 05/18/25 10:00 05/20/25 10:26 75 MG Ondansetron HCl 4 mg Q4HP PRN IV 05/18/25 04:45 Acetaminophen 650 mg Q6HP PRN PO 05/18/25 04:45 05/19/25 21:22 650 MG Nitroglycerin 0.4 mg Q5MINP PRN SL 05/18/25 04:45 Levalbuterol HCl 1.25 mg Q6HR NEB 05/18/25 12:00 05/20/25 12:09 1.25 MG Ipratropium [place] 0.5 mg Q6HR NEB 05/18/25 12:00 05/20/25 12:09 0.5 MG Pantoprazole Sodium 40 mg DAILY IV 05/19/25 10:00 05/20/25 10:25 40 MG Diagnostic Test (Pha) 1 strip IQ4HR 05/18/25 12:00 05/20/25 16:17 1 STRIP Insulin Human Regular IQ4HR SC 05/18/25 12:00 05/20/25 16:22 6 UNITS Dextrose 50 ml UD PRN IV 05/18/25 11:00 Insulin Glargine 15 units HS SC 05/18/25 22:00 05/19/25 21:07 15 UNITS Micafungin Sodium 100 mg/Sodium Chloride 100 ml @ 100 mls/hr DAILY IV 05/19/25 10:00 05/20/25 11:42 100 MLS/HR Lorazepam 0.5 mg Q8HP PRN IV 05/19/25 00:15 05/19/25 00:39 0.5 MG Fentanyl Citrate 250 ml @ 2.5 mls/hr Q24H IV 05/19/25 11:30 05/20/25 05:20 20 MLS/HR Midazolam HCl 100 ml @ 1 mls/hr Q24H IV 05/19/25 17:30 05/20/25 11:42 15 MLS/HR Propofol 100 ml @ 2.61 mls/hr Q24H IV 05/19/25 23:15 05/20/25 06:16 5.22 MLS/HR Norepinephrine Bitartrate 250 ml @ 3.75 mls/hr Q24H IV 05/19/25 23:15 05/19/25 23:48 3.75 MLS/HR Nystatin 1 applic BID TOP 05/20/25 10:00 05/20/25 10:33 1 APPLIC Doxycycline Hyclate 100 ml @ 50 mls/hr Q12H IV 05/20/25 10:00 05/20/25 11:32 50 MLS/HR Bumetanide 2 mg BIDD IV 05/20/25 18:00 Enoxaparin Sodium 70 mg Q12HR SC 05/20/25 22:00 Examination: GENERAL:Abnormal, LUNGS:Abnormal (Mechanically ventilated FiO2 95%, peep of 12), CVS:Normal, NEURO:Abnormal (Chemically sedated) laboratory and microbiology Laboratory Tests 05/20/25 03:40 Test 05/20/25 03:40 Range/Units Serum Glucose 166 H 74-106 mg/dL Problem List/Assessment/Plan Problem List/Assessment/Plan NSTEMI Sepsis Acute hypoxic respiratory failure secondary to pneumonia Severe coronary artery disease s/p triple-vessel CABG on 01/16/2025 (on ASA) Chronic HFpEF, NYHA class III Questionable history of atrial fibrillation (on Eliquis and Amiodarone) Hypertension Dyslipidemia Peripheral arterial disease status post [employer]ST[employer]ER to right 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 Forbes): * Transthoracic echocardiogram reveals EF 50%, left ventricular function is preserved however there is mild anterior hypokinesis and abnormal septal motion given a bundle branch block * Vasopressors for hemodynamic support * Single antiplatelet therapy and lipid-lowering agent * Therapeutic Lovenox while inpatient; transition back to DOAC when appropriate * Close cardiac surveillance * Antibiotics per primary care team Case discussed with . EKG and pertinent lab values reviewed. Elevated troponin level likely in the setting of demand ischemia. Further recommendations per clinical course and progression. Thank you for allowing us to care for this patient. Please call with any questions or concerns. Critical care time spent: 38 minutes. This medical document was created using an electronic medical record system with voice recognition software and computerized dictation system. Although this document has been carefully reviewed, there might still be some phonetic and typographical errors. Occasional wrong-word or ``sound-alike substitutions may have occurred due to the inherent limitations of voice recognition software. These areas are purely typographical due to imperfections of the software programs and do not reflect any compromise in the patient's medical care. Please read the chart carefully and recognize, using context, where these substitutions have occurred. Plan discussed with: Other Dietary Evaluation Review Comments: Nutrition Recommendation: 1) EN Glucerna 1.2Cal @ 40ml/hr x 24hr (goal) along with Pro-stat 1 pk TID. TF at goal volume along with Propofol & Pro-stat provide 1589 kcal (100%), 103 gm protein (100%), and 773 ml free water. 2) Consider TPN/PN if NPO>7 days 3) Gordon 1 pk BID for DFU wound healing 4) Monitor NPO status, lab values, weight trend, and I/O Expected Outcomes/Goals: Wound to improve Intake to meet >75% estimated needs Lab values to improve FU 2-3 days Fluid Accumulation (Non Severe: Mild fluid retention Protein Calorie Malnutrition: N/A Is there a minimum of two crit: No Date of Service: May 20, 2025 Billing Provider: ISAI ZELAYA Common Visit Codes: [id number] CARE 30-74 MIN ISAI ZELAYA [facility] May 20, 2025 17:08
[2025-05-20] MEDS ORDERED: BUMETANIDE 2.5mg/10ml (0.25 mg/ml) INJ IV SCH (18:00)
[2025-05-20] MEDS ORDERED: BUMETANIDE 1mg/4ml VIAL (0.25mg/ml) IV SCH (18:00)
[2025-05-20] MEDS: BUMETANIDE 2.5mg/10ml (0.25 mg/ml) INJ IV SCH (18:31)
[2025-05-20] MEDS: ENOXAPARIN SOD 100 MG/1 ML SYRINGE SC SCH (20:59)
[2025-05-21] VITALS (110 sets, daily range): BP systolic 97–123; BP diastolic 48–59; PULSE 53–66; RESP 11–22; TEMP 97–98.1; O2SAT 91–100
[2025-05-21 04:42] LABS: Hemoglobin 7.4 g/dL (13.5-17.5)
[2025-05-21 04:45] LABS: Anion Gap 13 (5-15); Carbon Dioxide 22 mmol/L (20-31); Chloride 105 mmol/L (98-107); Potassium 4.6 mmol/L (3.5-5.1); Sodium 140 mmol/L (136-145)
[2025-05-21 04:46] LABS: Hematocrit 21.9 % (41.0-53.0); Mean Corpuscular Hemoglobin 28.5 pg (28.0-32.0); Mean Corpuscular Volume 84.6 fL (80.0-100.0); Nucleated Red Blood Cells % 0.1 %
[2025-05-21 04:52] LABS: BUN/Creatinine Ratio 19.2 (10.0-20.0)
[2025-05-21 05:17] LABS: Blood Urea Nitrogen 43 mg/dL (9-23); Calcium 8.3 mg/dL (8.7-10.4); Glucose 216 mg/dL (74-106)
[2025-05-21] MEDS: BUMETANIDE INJECTION 10 ML ONE (05:24)
--- NOTE | 2025-05-21 05:50 | DVH ---
CHEST RADIOGRAPH Indication: Routine Chest X-Ray Technique: Single frontal view of the chest was obtained COMPARISON: XY CHEST PORTABLE on DOS: 05/20/25, XY CHEST PORTABLE on DOS: 05/19/25, XY CHEST XRAY 1 VIEW on DOS: 05/19/25, XY CHEST XRAY 1 VIEW on DOS: 05/19/25, XY CHEST XRAY 1 VIEW on DOS: 05/18/25 FINDINGS: Lines and Tubes: Endotracheal tube, enteric catheter and right central venous catheter in satisfactory position. Lungs: Pulmonary vascular congestion, unchanged Pleura: No effusion. No pneumothorax. Cardiomediastinal contours: Median sternotomy. Bones: Unremarkable IMPRESSION: Lines and tubes in satisfactory position. No significant interval change.
--- NOTE | 2025-05-21 09:33 | DVHPN2 ---
Reviewed: Care Plan, H&P, Labs, Medications Changes from previous H/P or p: No Changes General: Per HPI Objective Vitals Vital Signs Date Time Temp Pulse Resp B/P (MAP) Pulse Ox O2 Delivery O2 Flow Rate FiO2 05/21/25 08:01 57 22 103/52 (69) 98 70 05/21/25 06:45 97.5 207.5 05/20/25 20:00 Mechanical Ventilator+ Intake/Output Intake and Output 05/21/25 07:00 Intake Total 1550.07 ml Output Total 1200 ml Balance 350.07 ml Intake Oral 60 ml IV Total 1490.07 ml Output Urine Total 1200 ml General Appearance: Alert, Oriented X3, Cooperative, moderate distress HEENT: Atraumatic, PERRLA Lungs: Other (Bilateral rhonchi) Cardiovascular: Normal S1, Normal S2 Abdomen: Normal bowel sounds, Soft, No tenderness Musculoskeletal: Normal sensory function, Normal motor function Skin: Dry, Intact Psych/Mental Status: Mental status NL, Mood NL Medications Current Medications Medications Dose Ordered Sig/Ankur Route Start Time Stop Time Status Last Admin Dose Admin Cefepime HCl 50 ml @ 12.5 mls/hr Q12HR IV 05/18/25 10:00 05/20/25 20:55 12.5 MLS/HR Gabapentin 300 mg TID PO 05/18/25 06:00 05/21/25 05:24 300 MG Amiodarone HCl 200 mg Q12HR PO 05/18/25 10:00 05/20/25 10:25 200 MG Clopidogrel Bisulfate 75 mg DAILY PO 05/18/25 10:00 05/20/25 10:26 75 MG Ondansetron HCl 4 mg Q4HP PRN IV 05/18/25 04:45 Acetaminophen 650 mg Q6HP PRN PO 05/18/25 04:45 05/19/25 21:22 650 MG Nitroglycerin 0.4 mg Q5MINP PRN SL 05/18/25 04:45 Levalbuterol HCl 1.25 mg Q6HR NEB 05/18/25 12:00 05/21/25 05:53 1.25 MG Ipratropium [place] 0.5 mg Q6HR NEB 05/18/25 12:00 05/21/25 05:53 0.5 MG Pantoprazole Sodium 40 mg DAILY IV 05/19/25 10:00 05/20/25 10:25 40 MG Diagnostic Test (Pha) 1 strip IQ4HR 05/18/25 12:00 05/21/25 08:27 1 STRIP Insulin Human Regular IQ4HR SC 05/18/25 12:00 05/21/25 08:30 3 UNITS Dextrose 50 ml UD PRN IV 05/18/25 11:00 Insulin Glargine 15 units HS SC 05/18/25 22:00 05/20/25 20:53 15 UNITS Micafungin Sodium 100 mg/Sodium Chloride 100 ml @ 100 mls/hr DAILY IV 05/19/25 10:00 05/20/25 11:42 100 MLS/HR Lorazepam 0.5 mg Q8HP PRN IV 05/19/25 00:15 05/19/25 00:39 0.5 MG Fentanyl Citrate 250 ml @ 2.5 mls/hr Q24H IV 05/19/25 11:30 05/21/25 05:26 20 MLS/HR Midazolam HCl 100 ml @ 1 mls/hr Q24H IV 05/19/25 17:30 05/21/25 05:25 15 MLS/HR Propofol 100 ml @ 2.61 mls/hr Q24H IV 05/19/25 23:15 05/21/25 03:13 5.22 MLS/HR Norepinephrine Bitartrate 250 ml @ 3.75 mls/hr Q24H IV 05/19/25 23:15 05/20/25 23:44 3.75 MLS/HR Nystatin 1 applic BID TOP 05/20/25 10:00 05/20/25 20:54 1 APPLIC Doxycycline Hyclate 100 ml @ 50 mls/hr Q12H IV 05/20/25 10:00 05/20/25 20:55 50 MLS/HR Enoxaparin Sodium 70 mg Q12HR SC 05/20/25 22:00 05/20/25 20:59 70 MG Bumetanide 2 mg BIDD IV 05/20/25 18:00 Cancel Bumetanide 2 mg BIDD IV 05/20/25 18:00 05/21/25 05:24 2 MG Laboratory Results Laboratory Tests 05/21/25 03:40 Chemistry Test 05/21/25 03:40 Calcium Level 8.3 mg/dL (8.7-10.4) L Urinalysis Test 05/18/25 20:20 Urine Color Colorless (Yellow) Urine Clarity Clear (Clear) Urine pH 5.5 (5.0-9.0) Urine Specific [place] 1.008 (1.001-1.035) Urine Protein Negative (Negative) Urine Ketones Negative (Negative) Urine Blood Trace /uL (Negative) H Urine Nitrite Negative (Negative) Urine Bilirubin Negative (Negative) Urine Urobilinogen Normal mg/dL (Negative) Urine Leukocyte Esterase 2+ /uL (Negative) Urine RBC 3 /hpf (0 - 3) Urine Microscopic WBC 57 /HPF (0-3) H Urine Squamous Epithelial Cells None seen /hpf (<5) Urine Bacteria None seen /hpf (None Seen) Urine Glucose Normal mg/dL (Normal) Blood Gas Results Test 05/20/25 11:00 Arterial Blood pH 7.307 (7.350-7.450) FiO2 % 100.0 Microbiology Microbiology Date/Time Source Procedure Growth Status 05/19/25 18:40 Nose MRSA Screen - Final Complete 05/19/25 11:21 Sputum Gram Stain - Final Resulted 05/19/25 11:21 Sputum Respiratory Culture - Preliminary No growth Resulted 05/18/25 03:07 Blood Blood Culture - Preliminary NO GROWTH AFTER 72 HOURS OF INCUBATION. Resulted Labs and/or images reviewed: Labs reviewed by me, Image(s) reviewed by me Assessment/Plan Assessment/Plan 70-year-old male presents for evaluation of shortness for breath. Patient endorses a two day history of worsening shortness for breath with associated chest tightness. Also reports having a nonproductive cough. No fever or chills. Past Medical History Diabetes mellitus, hypertension, atrial fibrillation, congestive heart failure 05/19: Events: Patient had worsening respiratory status despite being on BiPAP overnight. FiO2 is at 100%. Worsening bilateral infiltrates. Long discussion made with the patient, daughter, as well as patient's who are all agreeable to have the patient electively intubated at this time. Patient was intubated he has been an 8.0 ET tube with glide scope. Patient placed on pressure control settings with a PEEP of 12. Central line was also placed by myself. - R Jazmin 05/20: Patient has very complicated complex pneumonia bilateral, bilateral opacities. History of CHF as well. Treating with broad-spectrum antibiotics. We will change antibiotics to cefepime/doxycycline/micafungin. Patient is on significant oxygen requirement, currently on pressure support inspiratory pressure 20, peep 12. ABG showing pCO2 55 increasing, we will increase rate from 18-22. Per oxygen patient is on 100% O2 and PEEP of 12, we will try to deescalate PEEP to 10. Currently saturating 95%. On Levophed 6, sedation on fentanyl and Diprivan and Versed. We will do conservative fluids, likely getting enough fluids with current drips in antibiotics. We will do trial of 1 time 60 Solu-Medrol. Consult pulmonology for vent management. X-ray looking improved today. Patient blood pressure very labile, he draws blood pressure with sliding movements, unsafe to do CT chest currently, we will do CT chest as soon as patient stabilizes blood pressure. We will continue q.2h turns as tolerated. This will also allow to test patient's blood pressure stability for CT chest. Otherwise continue current management from primary team. -pulmonology onboard, keeping peep high, agreed with high RR, ABG showing improving CO2. Appreciate pulmonology recommendations for ventilator 05/21: X-ray looks better but still on high settings IPAP 20, peep 12 pressure controlled still., O2 come down to 70% now. Off of Levophed. We will maintain RASS negative 3- for, currently Versed 14, Diprivan 10, faint 200. We will maintain goal to keep patient euvolemic. Patient looks pale but has good capillary refill hemoglobin down but holding stable at 7.4. We will hold off giving blood as patient could get volume overload easily. We will start Solu- Medrol 80 b.i.d., continue antibiotics. We can not do turns or chronic right now patient's blood pressure very labile with turning. Defer to pulmonology and primary team tomorrow. We will start feeds Glucerna goal 30. Patient is getting enough volume from drips, not giving excessive fluids goal to maintain keep patient more dry. Impression: -Acute Hypoxic Respiratory Failure -CAD with previous CABG -DM -Community Acquired PNA, Gram +/ Gram - -? hx of Afib -NSTEMI ? type II -Sepsis -acute on chronic diastolic heart failure Plan: -continue cefepime, and Zyvox -bronchodilators -anticoagulation per Cardiology -PPI -echocardiogram recommendations reviewed -sputum culture: Pending -Repeat labs, chest x-ray, ABG in a.m. Critical care time spent with patient discussing and formulating plan of care: 90 minutes. This does not include time spent performing procedures. Plan discussed with: Other My Orders Orders - KALI LYNNE MD Procedure Category Date Status Time Chest Xray 1 View XY 05/21/25 Resulted 04:00 Npo (Nothing By DIET 05/21/25 Transmitted Mouth) Diet Breakfast Date of Service: May 21, 2025 Billing Provider: KALI LYNNE MD Common Visit Codes: [id number] CARE 30-74 MIN KALI LYNNE MD May 21, 2025 09:33
[2025-05-21 09:34] LABS: Base Excess -2.6 mmol/L (-2.0-3.0)
[2025-05-21] MEDS: MICAFUNGIN SODIUM 100 MG in SODIUM CHL 0.9% 100 ML IV SCH (09:54)
[2025-05-21] MEDS: CEFEPIME 1GM/50ML 50 ML IV SCH (13:09)
[2025-05-21] MEDS: Glucerna 1.2 Cal 1Liter BOTTLE GT SCH (13:11)
[2025-05-21] MEDS ORDERED: EPINEPHrine HCL 1 MG/10 ML SYRG IV ONE (13:30)
[2025-05-21] MEDS ORDERED: SODIUM BICARB 8.4% 50Meq/50ml SYR INJ IV ONE (13:30)
[2025-05-21] MEDS ORDERED: DEXTROSE (50%) 50ML SYRG IV ONE (13:30)
--- NOTE | 2025-05-21 14:27 | DVHPN2 ---
Progress Note - Dictate Date Seen: May 21, 2025 Medical Necessity Reason Pt with a Central, PICC or Fol: Yes The following are medically ne: Central Line vital signs Vital Sign Date Time Temp Pulse Resp B/P (MAP) Pulse Ox O2 Delivery O2 Flow Rate FiO2 05/21/25 13:54 56 22 99/49 (66) 95 50 05/21/25 11:45 97.3 207.1 05/21/25 07:50 Mechanical Ventilator+ Total Intake and Output 05/20/25 05/20/25 05/21/25 15:00 23:00 07:00 Intake Total 411.76 ml 750.51 ml 428.02 ml Output Total 450 ml 750 ml Balance 411.76 ml 300.51 ml -321.98 ml medications Current Medications Medications Dose Ordered Sig/Ankur Route Start Time Stop Time Status Last Admin Dose Admin Gabapentin 300 mg TID PO 05/18/25 06:00 05/21/25 05:24 300 MG Amiodarone HCl 200 mg Q12HR PO 05/18/25 10:00 05/20/25 10:25 200 MG Clopidogrel Bisulfate 75 mg DAILY PO 05/18/25 10:00 05/21/25 09:55 75 MG Ondansetron HCl 4 mg Q4HP PRN IV 05/18/25 04:45 Acetaminophen 650 mg Q6HP PRN PO 05/18/25 04:45 05/19/25 21:22 650 MG Nitroglycerin 0.4 mg Q5MINP PRN SL 05/18/25 04:45 Levalbuterol HCl 1.25 mg Q6HR NEB 05/18/25 12:00 05/21/25 11:29 1.25 MG Ipratropium [place] 0.5 mg Q6HR NEB 05/18/25 12:00 05/21/25 11:29 0.5 MG Pantoprazole Sodium 40 mg DAILY IV 05/19/25 10:00 05/21/25 09:54 40 MG Diagnostic Test (Pha) 1 strip IQ4HR 05/18/25 12:00 05/21/25 12:11 1 STRIP Insulin Human Regular IQ4HR SC 05/18/25 12:00 05/21/25 12:15 3 UNITS Dextrose 50 ml UD PRN IV 05/18/25 11:00 Insulin Glargine 15 units HS SC 05/18/25 22:00 05/20/25 20:53 15 UNITS Lorazepam 0.5 mg Q8HP PRN IV 05/19/25 00:15 05/19/25 00:39 0.5 MG Fentanyl Citrate 250 ml @ 2.5 mls/hr Q24H IV 05/19/25 11:30 05/21/25 05:26 20 MLS/HR Midazolam HCl 100 ml @ 1 mls/hr Q24H IV 05/19/25 17:30 05/21/25 13:06 13 MLS/HR Propofol 100 ml @ 2.61 mls/hr Q24H IV 05/19/25 23:15 05/21/25 03:13 5.22 MLS/HR Norepinephrine Bitartrate 250 ml @ 3.75 mls/hr Q24H IV 05/19/25 23:15 05/20/25 23:44 3.75 MLS/HR Nystatin 1 applic BID TOP 05/20/25 10:00 05/21/25 09:55 1 APPLIC Doxycycline Hyclate 100 ml @ 50 mls/hr Q12H IV 05/20/25 10:00 05/21/25 11:11 50 MLS/HR Bumetanide 2 mg BIDD IV 05/20/25 18:00 Cancel Bumetanide 2 mg BIDD IV 05/20/25 18:00 05/21/25 05:24 2 MG Micafungin Sodium 100 mg/Sodium Chloride 100 ml @ 100 mls/hr DAILY@0900 IV 05/21/25 09:20 05/21/25 09:54 100 MLS/HR Cefepime HCl 50 ml @ 12.5 mls/hr Q12H IV 05/21/25 11:00 05/21/25 13:09 12.5 MLS/HR Enteral Nutritional Formula 1,000 ml 30ML/HR GT 05/21/25 10:30 05/21/25 13:11 1,000 ML Methylprednisolone Sodium Succinate 80 mg BID IV 05/21/25 22:00 Enoxaparin Sodium 90 mg Q12HR SC 05/21/25 22:00 laboratory and microbiology Laboratory Tests 05/21/25 03:40 Test 05/21/25 03:40 Range/Units Serum Glucose 216 H 74-106 mg/dL Assessment/Plan Impression Acute hypoxemic respiratory failure Pulmonary edema Pneumonia MENDEL Patient seen and examined in ICU Events On mechanical ventilation S/p intubation PEEP 12, FiO2 60% Minimal secretions Labs and imaging reviewed ABG reviewed Management Vent support Titrate to maintain sats 90% or above Sedation for vent synchrony Continue antibiotics F/u cultures Bronchodilators Diurese Monitor renal function F/u nephrology, management deferred Monitor electrolytes Supplement as needed Pressors as needed for hemodynamic support To maintain a mean arterial pressure of 65 mmHg Recommend cardiology input Will consider bronchoscopy DVT prophylaxis Critical care time 35 minutes Dietary Evaluation Review Comments: Nutrition Recommendation: 1) EN Glucerna 1.2Cal @ 40ml/hr x 24hr (goal) along with Pro-stat 1 pk TID. TF at goal volume along with Propofol & Pro-stat provide 1589 kcal (100%), 103 gm protein (100%), and 773 ml free water. 2) Consider TPN/PN if NPO>7 days 3) [place] 1 pk BID for DFU wound healing 4) Monitor NPO status, lab values, weight trend, and I/O Expected Outcomes/Goals: Wound to improve Intake to meet >75% estimated needs Lab values to improve FU 2-3 days Fluid Accumulation (Non Severe: Mild fluid retention Protein Calorie Malnutrition: N/A Is there a minimum of two crit: No Plan discussed with: Other (Rn) KIT RUBIO MD May 21, 2025 14:27
--- NOTE | 2025-05-21 17:31 | DVHPN2 ---
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 He remains chemically sedated and mechanically ventilated Objective vital signs Vital Sign Date Time Temp Pulse Resp B/P (MAP) Pulse Ox O2 Delivery O2 Flow Rate FiO2 05/21/25 16:38 55 22 101/49 (66) 95 50 05/21/25 15:15 98.1 208.6 05/21/25 07:50 Mechanical Ventilator+ Total Intake and Output 05/20/25 05/20/25 05/21/25 15:00 23:00 07:00 Intake Total 411.76 ml 750.51 ml 428.02 ml Output Total 450 ml 750 ml Balance 411.76 ml 300.51 ml -321.98 ml medications Current Medications Medications Dose Ordered Sig/Ankur Route Start Time Stop Time Status Last Admin Dose Admin Gabapentin 300 mg TID PO 05/18/25 06:00 05/21/25 15:59 300 MG Amiodarone HCl 200 mg Q12HR PO 05/18/25 10:00 05/20/25 10:25 200 MG Clopidogrel Bisulfate 75 mg DAILY PO 05/18/25 10:00 05/21/25 09:55 75 MG Ondansetron HCl 4 mg Q4HP PRN IV 05/18/25 04:45 Acetaminophen 650 mg Q6HP PRN PO 05/18/25 04:45 05/19/25 21:22 650 MG Nitroglycerin 0.4 mg Q5MINP PRN SL 05/18/25 04:45 Levalbuterol HCl 1.25 mg Q6HR NEB 05/18/25 12:00 05/21/25 11:29 1.25 MG Ipratropium [place] 0.5 mg Q6HR NEB 05/18/25 12:00 05/21/25 11:29 0.5 MG Pantoprazole Sodium 40 mg DAILY IV 05/19/25 10:00 05/21/25 09:54 40 MG Diagnostic Test (Pha) 1 strip IQ4HR 05/18/25 12:00 05/21/25 16:01 1 STRIP Insulin Human Regular IQ4HR SC 05/18/25 12:00 05/21/25 16:06 3 UNITS Dextrose 50 ml UD PRN IV 05/18/25 11:00 Insulin Glargine 15 units HS SC 05/18/25 22:00 05/20/25 20:53 15 UNITS Lorazepam 0.5 mg Q8HP PRN IV 05/19/25 00:15 05/19/25 00:39 0.5 MG Fentanyl Citrate 250 ml @ 2.5 mls/hr Q24H IV 05/19/25 11:30 05/21/25 05:26 20 MLS/HR Midazolam HCl 100 ml @ 1 mls/hr Q24H IV 05/19/25 17:30 05/21/25 13:06 13 MLS/HR Propofol 100 ml @ 2.61 mls/hr Q24H IV 05/19/25 23:15 05/21/25 03:13 5.22 MLS/HR Norepinephrine Bitartrate 250 ml @ 3.75 mls/hr Q24H IV 05/19/25 23:15 05/20/25 23:44 3.75 MLS/HR Nystatin 1 applic BID TOP 05/20/25 10:00 05/21/25 09:55 1 APPLIC Doxycycline Hyclate 100 ml @ 50 mls/hr Q12H IV 05/20/25 10:00 05/21/25 11:11 50 MLS/HR Bumetanide 2 mg BIDD IV 05/20/25 18:00 Cancel Bumetanide 2 mg BIDD IV 05/20/25 18:00 05/21/25 05:24 2 MG Micafungin Sodium 100 mg/Sodium Chloride 100 ml @ 100 mls/hr DAILY@0900 IV 05/21/25 09:20 05/21/25 09:54 100 MLS/HR Cefepime HCl 50 ml @ 12.5 mls/hr Q12H IV 05/21/25 11:00 05/21/25 13:09 12.5 MLS/HR Enteral Nutritional Formula 1,000 ml 30ML/HR GT 05/21/25 10:30 05/21/25 13:11 1,000 ML Methylprednisolone Sodium Succinate 80 mg BID IV 05/21/25 22:00 Enoxaparin Sodium 90 mg Q12HR SC 05/21/25 22:00 Examination: GENERAL:Abnormal, LUNGS:Abnormal (Mechanically ventilated), CVS:Abnormal (Sinus bradycardia ST-depression on geek squad manager), NEURO:Abnormal (Chemically sedated) laboratory and microbiology Laboratory Tests 05/21/25 03:40 Test 05/21/25 03:40 Range/Units Serum Glucose 216 H 74-106 mg/dL Problem List/Assessment/Plan Problem List/Assessment/Plan NSTEMI Sepsis Acute hypoxic respiratory failure secondary to pneumonia Severe coronary artery disease s/p triple-vessel CABG on 01/16/2025 (on ASA) Chronic HFpEF, NYHA class III Questionable history of atrial fibrillation (on Eliquis and Amiodarone) Hypertension Dyslipidemia 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 Forbes): * Transthoracic echocardiogram reveals EF 50%, left ventricular function is preserved however there is mild anterior hypokinesis and abnormal septal motion given a bundle branch block * Vasopressors for hemodynamic support * Single antiplatelet therapy and lipid-lowering agent * Therapeutic Lovenox while inpatient; transition back to DOAC when appropriate. Closely monitor H&H, transfuse if needed * Close cardiac surveillance * Antibiotics per primary care team Case discussed with . EKG and pertinent lab values reviewed. Elevated troponin level likely in the setting of demand ischemia. Further recommendations per clinical course and progression. Thank you for allowing us to care for this patient. Please call with any questions or concerns. Critical care time spent: 38 minutes. This medical document was created using an electronic medical record system with voice recognition software and computerized dictation system. Although this document has been carefully reviewed, there might still be some phonetic and typographical errors. Occasional wrong-word or ``sound-alike substitutions may have occurred due to the inherent limitations of voice recognition software. These areas are purely typographical due to imperfections of the software programs and do not reflect any compromise in the patient's medical care. Please read the chart carefully and recognize, using context, where these substitutions have occurred. Plan discussed with: Other Dietary Evaluation Review Comments: Nutrition Recommendation: 1) EN Glucerna 1.2Cal @ 40ml/hr x 24hr (goal) along with Pro-stat 1 pk TID. TF at goal volume along with Propofol & Pro-stat provide 1589 kcal (100%), 103 gm protein (100%), and 773 ml free water. 2) Consider TPN/PN if NPO>7 days 3) [place] 1 pk BID for DFU wound healing 4) Monitor NPO status, lab values, weight trend, and I/O Expected Outcomes/Goals: Wound to improve Intake to meet >75% estimated needs Lab values to improve FU 2-3 days Fluid Accumulation (Non Severe: Mild fluid retention Protein Calorie Malnutrition: N/A Is there a minimum of two crit: No Date of Service: May 21, 2025 Billing Provider: ISAI ZELAYA Common Visit Codes: [id number] CARE 30-74 MIN ISAI ZELAYA May 21, 2025 17:31
[2025-05-21] MEDS: ENOXAPARIN SOD 100 MG/1 ML SYRINGE SC SCH (21:58)
[2025-05-21] MEDS: methylPREDNISolone SOD SUCC 125 MG/2 ML VL IV SCH (21:58)
[2025-05-22] VITALS (108 sets, daily range): BP systolic 104–123; BP diastolic 45–59; PULSE 55–93; RESP 12–28; TEMP 98.1–99; O2SAT 87–100
--- NOTE | 2025-05-22 03:06 | DVH ---
CHEST RADIOGRAPH Indication: INTUBATED Technique: Single frontal view of the chest was obtained Comparison: XY CHEST XRAY 1 VIEW on DOS: 05/21/25, XY CHEST PORTABLE on DOS: 05/20/25, XY CHEST PORTABLE on DOS: 05/19/25 IMPRESSION: Support lines and tubes appear satisfactory in position. Likely small left pleural effusion with increased opacity of the left lung base. Moderate pulmonary vascular congestion. No pneumothorax.
[2025-05-22 04:38] LABS: Hemoglobin 7.6 g/dL (13.5-17.5); Nucleated Red Blood Cells % 0.3 %
[2025-05-22 04:41] LABS: Hematocrit 22.0 % (41.0-53.0); Mean Corpuscular Hemoglobin 28.8 pg (28.0-32.0); Mean Corpuscular Volume 83.7 fL (80.0-100.0)
[2025-05-22 04:42] LABS: Potassium 4.4 mmol/L (3.5-5.1); Sodium 141 mmol/L (136-145)
[2025-05-22 04:43] LABS: Anion Gap 13 (5-15); Carbon Dioxide 21 mmol/L (20-31)
[2025-05-22 04:49] LABS: BUN/Creatinine Ratio 22.9 (10.0-20.0)
[2025-05-22 04:53] LABS: Blood Urea Nitrogen 56 mg/dL (9-23); Calcium 8.6 mg/dL (8.7-10.4); Chloride 107 mmol/L (98-107); Glucose 193 mg/dL (74-106)
[2025-05-22] MEDS: ENOXAPARIN SOD 100 MG/1 ML SYRINGE SC ONE (06:53)
[2025-05-22] MEDS: PROPOFOL 100 ML IV ONE ×3 (06:53→06:55)
[2025-05-22] MEDS: DOXYCYCLINE 100MG/100ML 100 ML IV ONE (06:54)
[2025-05-22] MEDS: methylPREDNISolone SOD SUCC 125 MG/2 ML VL ONE (06:54)
[2025-05-22] MEDS: MIDAZOLAM DRIP 100 mg/100mL NS 100 ML IV ONE ×2 (06:55→06:56)
[2025-05-22] MEDS: NOREPINEPHRINE 8 MG/250ML KIT 250 ML IV ONE (06:55)
[2025-05-22] MEDS: LORazepam 2MG/ML-1ML VIAL ONE (06:56)
[2025-05-22 07:33] LABS: Base Excess -4.4 mmol/L (-2.0-3.0)
[2025-05-22] MEDS ORDERED: DEXTROSE (50%) 50ML SYRG IV PRN (09:00)
--- NOTE | 2025-05-22 09:33 | DVHPN2 ---
Subjective Patient intubated and sedated. Reviewed: Care Plan, H&P, Labs, Medications Changes from previous H/P or p: No Changes General: Per HPI Objective Vitals Vital Signs Date Time Temp Pulse Resp B/P (MAP) Pulse Ox O2 Delivery O2 Flow Rate FiO2 05/22/25 07:48 55 22 112/55 (74) 98 50 05/22/25 06:00 98.2 208.8 05/21/25 20:00 Mechanical Ventilator+ Intake/Output Intake and Output 05/22/25 07:00 Intake Total 1452.88 ml Output Total 1100 ml Balance 352.88 ml Intake Oral 110 ml IV Total 1151.88 ml Tube Feeding 191 ml Output Urine Total 1100 ml General Appearance: moderate distress, Other (Intubated and sedated) HEENT: Atraumatic, PERRLA Lungs: Other (Bilateral rhonchi) Cardiovascular: Normal S1, Normal S2, Other (Sinus bradycardia with bundle- branch block) Abdomen: Normal bowel sounds, Soft, No tenderness Genitourinary: No Apparent Abnormalities (Nogueira catheter) Extremities: No edema, Normal pulses Neuro: Other (Unable to assess) Skin: Dry, Intact Psych/Mental Status: Other (Unable to assess) Medications Current Medications Medications Dose Ordered Sig/Ankur Route Start Time Stop Time Status Last Admin Dose Admin Gabapentin 300 mg TID PO 05/18/25 06:00 05/22/25 05:16 300 MG Clopidogrel Bisulfate 75 mg DAILY PO 05/18/25 10:00 05/22/25 09:17 75 MG Ondansetron HCl 4 mg Q4HP PRN IV 05/18/25 04:45 Acetaminophen 650 mg Q6HP PRN PO 05/18/25 04:45 05/19/25 21:22 650 MG Nitroglycerin 0.4 mg Q5MINP PRN SL 05/18/25 04:45 Levalbuterol HCl 1.25 mg Q6HR NEB 05/18/25 12:00 05/22/25 05:50 1.25 MG Ipratropium [place] 0.5 mg Q6HR NEB 05/18/25 12:00 05/22/25 05:50 0.5 MG Pantoprazole Sodium 40 mg DAILY IV 05/19/25 10:00 05/22/25 09:15 40 MG Diagnostic Test (Pha) 1 strip IQ4HR 05/18/25 12:00 05/22/25 08:00 1 STRIP Dextrose 50 ml UD PRN IV 05/18/25 11:00 Insulin Glargine 15 units HS SC 05/18/25 22:00 05/21/25 22:06 15 UNITS Fentanyl Citrate 250 ml @ 2.5 mls/hr Q24H IV 05/19/25 11:30 05/22/25 06:32 20 MLS/HR Midazolam HCl 100 ml @ 1 mls/hr Q24H IV 05/19/25 17:30 05/22/25 06:28 10 MLS/HR Propofol 100 ml @ 2.61 mls/hr Q24H IV 05/19/25 23:15 05/21/25 03:13 5.22 MLS/HR Norepinephrine Bitartrate 250 ml @ 3.75 mls/hr Q24H IV 05/19/25 23:15 05/20/25 23:44 3.75 MLS/HR Nystatin 1 applic BID TOP 05/20/25 10:00 05/22/25 09:19 1 APPLIC Doxycycline Hyclate 100 ml @ 50 mls/hr Q12H IV 05/20/25 10:00 05/22/25 09:15 50 MLS/HR Bumetanide 2 mg BIDD IV 05/20/25 18:00 Cancel Bumetanide 2 mg BIDD IV 05/20/25 18:00 05/22/25 05:17 2 MG Micafungin Sodium 100 mg/Sodium Chloride 100 ml @ 100 mls/hr DAILY@0900 IV 05/21/25 09:20 05/22/25 09:26 100 MLS/HR Cefepime HCl 50 ml @ 12.5 mls/hr Q12H IV 05/21/25 11:00 05/21/25 22:53 12.5 MLS/HR Enteral Nutritional Formula 1,000 ml 30ML/HR GT 05/21/25 10:30 05/21/25 13:11 1,000 ML Enoxaparin Sodium 90 mg Q12HR SC 05/21/25 22:00 05/22/25 09:18 90 MG Amiodarone HCl 200 mg DAILY PO 05/22/25 10:00 UNV Methylprednisolone Sodium Succinate 40 mg BID IV 05/22/25 10:00 UNV Diagnostic Test (Pha) 1 strip ACHS 05/22/25 11:30 UNV Insulin Human Regular ACHS SC 05/22/25 11:30 UNV Dextrose 50 ml UD PRN IV 05/22/25 09:00 UNV Laboratory Results Laboratory Tests 05/22/25 03:50 Chemistry Test 05/22/25 03:50 Calcium Level 8.6 mg/dL (8.7-10.4) L Urinalysis Test 05/18/25 20:20 Urine Color Colorless (Yellow) Urine Clarity Clear (Clear) Urine pH 5.5 (5.0-9.0) Urine Specific [facility] 1.008 (1.001-1.035) Urine Protein Negative (Negative) Urine Ketones Negative (Negative) Urine Blood Trace /uL (Negative) H Urine Nitrite Negative (Negative) Urine Bilirubin Negative (Negative) Urine Urobilinogen Normal mg/dL (Negative) Urine Leukocyte Esterase 2+ /uL (Negative) Urine RBC 3 /hpf (0 - 3) Urine Microscopic WBC 57 /HPF (0-3) H Urine Squamous Epithelial Cells None seen /hpf (<5) Urine Bacteria None seen /hpf (None Seen) Urine Glucose Normal mg/dL (Normal) Blood Gas Results Test 05/22/25 07:23 Arterial Blood pH 7.512 (7.350-7.450) FiO2 % 50.0 Microbiology Microbiology Date/Time Source Procedure Growth Status 05/19/25 18:40 Nose MRSA Screen - Final Complete 05/19/25 11:21 Sputum Gram Stain - Final Resulted 05/19/25 11:21 Sputum Respiratory Culture - Preliminary Resulted 05/18/25 03:07 Blood Blood Culture - Preliminary NO GROWTH AFTER 72 HOURS OF INCUBATION. Resulted Labs and/or images reviewed: Labs reviewed by me, Image(s) reviewed by me Assessment/Plan Assessment/Plan Impression: -Acute Hypoxic Respiratory Failure -CAD with previous CABG -DM -Community Acquired PNA, Gram +/ Gram - -? hx of Afib -NSTEMI ? type II -Sepsis -acute on chronic diastolic heart failure Plan: Events: ABG reveals respiratory alkalosis. PO2 also improving. With respiratory therapy, inspiratory pressure titrated down to 14, with tidal volumes ranging between 550 and 600. Peep also decreased to 10. Patient's saturation remained 98%. -antibiotics: Doxycycline, cefepime, micafungin -bronchodilators -increase tube feeding to 30 mL/hour -nephrology consultation: IV fluids and diuretics per their discretion -anticoagulation per Cardiology -PPI -echocardiogram recommendations reviewed -sputum culture: Pending -Repeat labs, chest x-ray, ABG in a.m. Critical care time spent with patient discussing and formulating plan of care: 40 minutes. This does not include time spent performing procedures. This medical document was created using an electronic medical record system with [employer] dictation system. Although this document has been carefully reviewed, there may still be some phonetic and typographical errors. These areas are purely typographical due to imperfections of the software programs, and do not reflect any compromise in the patient's medical care. Plan discussed with: Patient, Other (RN) My Orders Orders - CRISTIAN BUTT NP Procedure Category Date Status Time Abg W/ Co-Ox RT 05/22/25 Logged 05:10 Ventilator Orders RT 05/22/25 Transmitted 09:10 Amiodarone Tablet PHA 05/22/25 Logged (Cordarone Tablet) 10:00 Methylprednisolone PHA 05/22/25 Logged Sod Succ (Solu Medrol 10:00 Glucose Blood PHA 05/22/25 Logged (Accu-Chek Comfort 11:30 Insulin R (Human) PHA 05/22/25 Logged (Insulin R) 11:30 Dextrose 50% Syringe PHA 05/22/25 Logged 09:00 Abg W/ Co-Ox RT 05/22/25 Logged 10:10 Basic Metabolic Panel LAB 05/23/25 Verified 04:00 Chest Portable XY 05/23/25 Transmitted 04:00 Abg W/ Co-Ox RT 05/23/25 Transmitted 04:00 Complete Blood Count LAB 05/23/25 Verified 04:00 Date of Service: May 22, 2025 Billing Provider: CRISTIAN BUTT NP Common Visit Codes: [id number] CARE 30-74 MIN CRISTIAN BUTT NP May 22, 2025 09:32
[2025-05-22] MEDS: methylPREDNISolone SOD SUCC 125 MG/2 ML VL IV SCH (10:00)
[2025-05-22 10:45] LABS: Base Excess -4.6 mmol/L (-2.0-3.0)
[2025-05-22] MEDS: ACCU-CHEK COMFORT CURVE STRIP VI SCH (11:30)
[2025-05-22] MEDS: InsuLIN REG 1unit/0.01ml Soln (100units/ml) SC SCH (12:48)
[2025-05-22 13:39] LABS: Base Excess -5.4 mmol/L (-2.0-3.0)
--- NOTE | 2025-05-22 17:00 | DVHPN2 ---
Progress Note - Dictate Date Seen: May 22, 2025 Medical Necessity Reason Pt with a Central, PICC or Fol: Yes The following are medically ne: Central Line vital signs Vital Sign Date Time Temp Pulse Resp B/P (MAP) Pulse Ox O2 Delivery O2 Flow Rate FiO2 05/22/25 16:45 98.2 74 12 109/54 (72) 95 208.8 05/22/25 16:18 70 05/22/25 08:00 Mechanical Ventilator+ Total Intake and Output 05/21/25 05/21/25 05/22/25 15:00 23:00 07:00 Intake Total 485.88 ml 403 ml 594 ml Output Total 300 ml 800 ml Balance 485.88 ml 103 ml -206 ml medications Current Medications Medications Dose Ordered Sig/Ankur Route Start Time Stop Time Status Last Admin Dose Admin Gabapentin 300 mg TID PO 05/18/25 06:00 05/22/25 14:32 300 MG Clopidogrel Bisulfate 75 mg DAILY PO 05/18/25 10:00 05/22/25 09:17 75 MG Ondansetron HCl 4 mg Q4HP PRN IV 05/18/25 04:45 Acetaminophen 650 mg Q6HP PRN PO 05/18/25 04:45 05/19/25 21:22 650 MG Nitroglycerin 0.4 mg Q5MINP PRN SL 05/18/25 04:45 Levalbuterol HCl 1.25 mg Q6HR NEB 05/18/25 12:00 05/22/25 11:39 1.25 MG Ipratropium [place] 0.5 mg Q6HR NEB 05/18/25 12:00 05/22/25 11:39 0.5 MG Pantoprazole Sodium 40 mg DAILY IV 05/19/25 10:00 05/22/25 09:15 40 MG Diagnostic Test (Pha) 1 strip IQ4HR 05/18/25 12:00 05/22/25 12:00 1 STRIP Dextrose 50 ml UD PRN IV 05/18/25 11:00 Insulin Glargine 15 units HS SC 05/18/25 22:00 05/21/25 22:06 15 UNITS Fentanyl Citrate 250 ml @ 2.5 mls/hr Q24H IV 05/19/25 11:30 05/22/25 06:32 20 MLS/HR Midazolam HCl 100 ml @ 1 mls/hr Q24H IV 05/19/25 17:30 05/22/25 14:52 10 MLS/HR Propofol 100 ml @ 2.61 mls/hr Q24H IV 05/19/25 23:15 05/21/25 03:13 5.22 MLS/HR Norepinephrine Bitartrate 250 ml @ 3.75 mls/hr Q24H IV 05/19/25 23:15 05/20/25 23:44 3.75 MLS/HR Nystatin 1 applic BID TOP 05/20/25 10:00 05/22/25 09:19 1 APPLIC Doxycycline Hyclate 100 ml @ 50 mls/hr Q12H IV 05/20/25 10:00 05/22/25 09:15 50 MLS/HR Bumetanide 2 mg BIDD IV 05/20/25 18:00 Cancel Bumetanide 2 mg BIDD IV 05/20/25 18:00 05/22/25 05:17 2 MG Micafungin Sodium 100 mg/Sodium Chloride 100 ml @ 100 mls/hr DAILY@0900 IV 05/21/25 09:20 05/22/25 09:26 100 MLS/HR Cefepime HCl 50 ml @ 12.5 mls/hr Q12H IV 05/21/25 11:00 05/22/25 12:35 12.5 MLS/HR Enteral Nutritional Formula 1,000 ml 30ML/HR GT 05/21/25 10:30 05/21/25 13:11 1,000 ML Amiodarone HCl 200 mg DAILY PO 05/23/25 10:00 Methylprednisolone Sodium Succinate 40 mg BID IV 05/22/25 10:00 Diagnostic Test (Pha) 1 strip ACHS 05/22/25 11:30 Insulin Human Regular ACHS SC 05/22/25 11:30 05/22/25 12:48 6 UNITS Enoxaparin Sodium 90 mg DAILY SC 05/23/25 10:00 laboratory and microbiology Laboratory Tests 05/22/25 03:50 Test 05/22/25 03:50 Range/Units Serum Glucose 193 H 74-106 mg/dL Assessment/Plan Impression Acute hypoxemic respiratory failure Pulmonary edema Pneumonia MENDEL Patient seen and examined in ICU Events On mechanical ventilation S/p intubation PEEP 10, FiO2 60-70% s/p bronch: moderate amount of secretions cx pending Labs and imaging reviewed ABG reviewed Management Vent support Titrate to maintain sats 90% or above Sedation for vent synchrony Continue antibiotics F/u cultures Bronchodilators Diurese Monitor renal function F/u nephrology, management deferred Monitor electrolytes Supplement as needed Pressors as needed for hemodynamic support To maintain a mean arterial pressure of 65 mmHg DVT prophylaxis Critical care time 35 minutes Dietary Evaluation Review Comments: Nutrition Recommendation: 1) EN Glucerna 1.2Cal @ 40ml/hr x 24hr (goal) along with Pro-stat 1 pk TID. TF at goal volume along with Propofol & Pro-stat provide 1589 kcal (100%), 103 gm protein (100%), and 773 ml free water. 2) Consider TPN/PN if NPO>7 days 3) Gordon 1 pk BID for DFU wound healing 4) Monitor NPO status, lab values, weight trend, and I/O Expected Outcomes/Goals: Wound to improve Intake to meet >75% estimated needs Lab values to improve FU 2-3 days Fluid Accumulation (Non Severe: Mild fluid retention Protein Calorie Malnutrition: N/A Is there a minimum of two crit: No Plan discussed with: Other (rn) KIT RUBIO MD May 22, 2025 17:00
--- NOTE | 2025-05-22 17:03 | DVHNC2 ---
Procedure - bronchoscopy and br washings indication: pneumonia consent and time out per protocol pt on mechanical vent [id number]% flexible scope passed thru the ETT and tracheo-br tree examined mucosa inflamed and edematous friable moderate amount of secretions suctioned thoroughly \ sample obtained for gram stain and cx no endobronchial lesions at the end of procedure scope removed pt tolerated procedure well KIT RUBIO MD May 22, 2025 17:03
--- NOTE | 2025-05-22 17:22 | DVHPN2 ---
Consult Progress Note Date Seen: May 22, 2025 Subjective Other Systems: Notofied of acute hypoxic respiratory events. No further bradycardia Objective vital signs Vital Sign Date Time Temp Pulse Resp B/P (MAP) Pulse Ox O2 Delivery O2 Flow Rate FiO2 05/22/25 16:45 98.2 74 12 109/54 (72) 95 208.8 05/22/25 16:18 70 05/22/25 08:00 Mechanical Ventilator+ Total Intake and Output 05/21/25 05/21/25 05/22/25 15:00 23:00 07:00 Intake Total 485.88 ml 403 ml 594 ml Output Total 300 ml 800 ml Balance 485.88 ml 103 ml -206 ml medications Current Medications Medications Dose Ordered Sig/Ankur Route Start Time Stop Time Status Last Admin Dose Admin Gabapentin 300 mg TID PO 05/18/25 06:00 05/22/25 14:32 300 MG Clopidogrel Bisulfate 75 mg DAILY PO 05/18/25 10:00 05/22/25 09:17 75 MG Ondansetron HCl 4 mg Q4HP PRN IV 05/18/25 04:45 Acetaminophen 650 mg Q6HP PRN PO 05/18/25 04:45 05/19/25 21:22 650 MG Nitroglycerin 0.4 mg Q5MINP PRN SL 05/18/25 04:45 Levalbuterol HCl 1.25 mg Q6HR NEB 05/18/25 12:00 05/22/25 11:39 1.25 MG Ipratropium [place] 0.5 mg Q6HR NEB 05/18/25 12:00 05/22/25 11:39 0.5 MG Pantoprazole Sodium 40 mg DAILY IV 05/19/25 10:00 05/22/25 09:15 40 MG Diagnostic Test (Pha) 1 strip IQ4HR 05/18/25 12:00 05/22/25 12:00 1 STRIP Dextrose 50 ml UD PRN IV 05/18/25 11:00 Insulin Glargine 15 units HS SC 05/18/25 22:00 05/21/25 22:06 15 UNITS Fentanyl Citrate 250 ml @ 2.5 mls/hr Q24H IV 05/19/25 11:30 05/22/25 06:32 20 MLS/HR Midazolam HCl 100 ml @ 1 mls/hr Q24H IV 05/19/25 17:30 05/22/25 14:52 10 MLS/HR Propofol 100 ml @ 2.61 mls/hr Q24H IV 05/19/25 23:15 05/21/25 03:13 5.22 MLS/HR Norepinephrine Bitartrate 250 ml @ 3.75 mls/hr Q24H IV 05/19/25 23:15 05/20/25 23:44 3.75 MLS/HR Nystatin 1 applic BID TOP 05/20/25 10:00 05/22/25 09:19 1 APPLIC Doxycycline Hyclate 100 ml @ 50 mls/hr Q12H IV 05/20/25 10:00 05/22/25 09:15 50 MLS/HR Bumetanide 2 mg BIDD IV 05/20/25 18:00 Cancel Bumetanide 2 mg BIDD IV 05/20/25 18:00 05/22/25 05:17 2 MG Micafungin Sodium 100 mg/Sodium Chloride 100 ml @ 100 mls/hr DAILY@0900 IV 05/21/25 09:20 05/22/25 09:26 100 MLS/HR Cefepime HCl 50 ml @ 12.5 mls/hr Q12H IV 05/21/25 11:00 05/22/25 12:35 12.5 MLS/HR Enteral Nutritional Formula 1,000 ml 30ML/HR GT 05/21/25 10:30 05/21/25 13:11 1,000 ML Amiodarone HCl 200 mg DAILY PO 05/23/25 10:00 Methylprednisolone Sodium Succinate 40 mg BID IV 05/22/25 10:00 Diagnostic Test (Pha) 1 strip ACHS 05/22/25 11:30 Insulin Human Regular ACHS SC 05/22/25 11:30 05/22/25 12:48 6 UNITS Enoxaparin Sodium 90 mg DAILY SC 05/23/25 10:00 Examination: GENERAL:Abnormal, LUNGS:Abnormal (Endotracheally intubated 100% FiO2, PEE 10), CVS:Normal (NSR with RBBB 60s bpm. Off vasopressors), SKIN:Abnormal (Right foot wound by first toe), NEURO:Abnormal (Chemically sedated. Intact cough/gag. 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 Forbes) Transthoracic echocardiogram reveals EF 50%, left ventricular function is preserved however there is mild anterior hypokinesis and abnormal septal motion given a bundle branch block. Twelve-lead electrocardiograms were compared with those from previous admissions. There are no new changes suggestive of acute coronary ischemia or need for further ischemic work-up. Bradycardia could be secondary to acute hypoxia. Continue O2 support per Pulmonology team. Continue antiarrhythmic therapy with amiodarone, single-antiplatelet therapy, lipid- lowering agent, and therapeutic Lovenox while inpatient; transition back to Eliquis when appropriate. Closely monitor H&H, transfuse as necessary. There is no further cardiac work-up indicated at this time. Kindly call with any questions or concerns or if in need of further follow-up. Thank you for allowing us to care for this patient. Critical care time spent: 35 minutes. This medical document was created using an electronic medical record system with voice recognition software and computerized dictation system. Although this document has been carefully reviewed, there might still be some phonetic and typographical errors. Occasional wrong-word or ``sound-alike substitutions may have occurred due to the inherent limitations of voice recognition software. These areas are purely typographical due to imperfections of the software programs and do not reflect any compromise in the patient's medical care. Please read the chart carefully and recognize, using context, where these substitutions have occurred. Plan discussed with: Other Dietary Evaluation Review Comments: Nutrition Recommendation: 1) EN Glucerna 1.2Cal @ 40ml/hr x 24hr (goal) along with Pro-stat 1 pk TID. TF at goal volume along with Propofol & Pro-stat provide 1589 kcal (100%), 103 gm protein (100%), and 773 ml free water. 2) Consider TPN/PN if NPO>7 days 3) Gordon 1 pk BID for DFU wound healing 4) Monitor NPO status, lab values, weight trend, and I/O Expected Outcomes/Goals: Wound to improve Intake to meet >75% estimated needs Lab values to improve FU 2-3 days Fluid Accumulation (Non Severe: Mild fluid retention Protein Calorie Malnutrition: N/A Is there a minimum of two crit: No Date of Service: May 22, 2025 Billing Provider: PAM ALSTON Cardiology Common Codes: [id number] CARE 30-74 MIN PAM ALSTON May 22, 2025 17:22
[2025-05-22] MEDS: ATORVASTATIN 20 MG TAB GT SCH (21:40)
[2025-05-23] VITALS (108 sets, daily range): BP systolic 103–121; BP diastolic 47–65; PULSE 50–76; RESP 10–23; TEMP 97.7–99; O2SAT 93–100
[2025-05-23 04:32] LABS: Hemoglobin 7.3 g/dL (13.5-17.5); Nucleated Red Blood Cells % 0.3 %
[2025-05-23 04:36] LABS: Hematocrit 22.0 % (41.0-53.0); Mean Corpuscular Hemoglobin 28.6 pg (28.0-32.0); Mean Corpuscular Volume 85.5 fL (80.0-100.0)
[2025-05-23 04:44] LABS: Chloride 107 mmol/L (98-107); Potassium 4.6 mmol/L (3.5-5.1); Sodium 140 mmol/L (136-145)
[2025-05-23 04:45] LABS: Anion Gap 11 (5-15); Calcium 8.4 mg/dL (8.7-10.4); Carbon Dioxide 22 mmol/L (20-31)
--- NOTE | 2025-05-23 04:47 | DVH ---
CHEST RADIOGRAPH Indication: pna Technique: Single frontal view of the chest was obtained COMPARISON: XY CHEST PORTABLE on DOS: 05/22/25, XY CHEST XRAY 1 VIEW on DOS: 05/21/25, XY CHEST PORTABLE on DOS: 05/20/25, XY CHEST PORTABLE on DOS: 05/19/25, XY CHEST XRAY 1 VIEW on DOS: 05/19/25 FINDINGS: Lines and Tubes: Endotracheal tube, enteric catheter and right central venous catheter in satisfactory position. Lungs: Increased interstitial prominence. This may represent pulmonary vascular congestion and/or viral pneumonia. Pleura: No effusion. No pneumothorax. Cardiomediastinal contours: Median sternotomy. Cardiomegaly. Bones: Unremarkable IMPRESSION: Lines and tubes in satisfactory position. Increased interstitial prominence. This may represent pulmonary vascular congestion and/or viral pneumonia.
[2025-05-23 04:50] LABS: BUN/Creatinine Ratio 27.1 (10.0-20.0)
[2025-05-23 04:59] LABS: Blood Urea Nitrogen 75 mg/dL (9-23); Glucose 326 mg/dL (74-106)
[2025-05-23 09:13] LABS: Base Excess -4.6 mmol/L (-2.0-3.0)
[2025-05-23] MEDS: AMIODARONE HCL 200 MG TAB PO SCH (10:30)
[2025-05-23] MEDS: ENOXAPARIN SOD 100 MG/1 ML SYRINGE SC SCH (10:31)
--- NOTE | 2025-05-23 11:16 | DVHPN2 ---
Subjective Patient intubated and sedated. Reviewed: Care Plan, H&P, Labs, Medications Changes from previous H/P or p: No Changes General: Per HPI Objective Vitals Vital Signs Date Time Temp Pulse Resp B/P (MAP) Pulse Ox O2 Delivery O2 Flow Rate FiO2 05/23/25 10:16 67 22 115/49 (71) 97 60 05/23/25 06:30 98.4 209.1 05/22/25 20:00 Mechanical Ventilator+ Intake/Output Intake and Output 05/23/25 07:00 Intake Total 1697.0 ml Output Total 1700 ml Balance -3.0 ml Intake Oral 140 ml IV Total 990.0 ml Tube Feeding 567 ml Output Urine Total 1700 ml General Appearance: moderate distress, Other (Intubated and sedated) HEENT: Atraumatic, PERRLA Lungs: Other (Bilateral rhonchi) Cardiovascular: Normal S1, Normal S2, Other (Sinus bradycardia with bundle- branch block) Abdomen: Normal bowel sounds, Soft, No tenderness Genitourinary: No Apparent Abnormalities (Nogueira catheter) Extremities: No edema, Normal pulses Neuro: Other (Unable to assess) Skin: Dry, Intact Psych/Mental Status: Other (Unable to assess) Medications Current Medications Medications Dose Ordered Sig/Ankur Route Start Time Stop Time Status Last Admin Dose Admin Gabapentin 300 mg TID PO 05/18/25 06:00 05/23/25 06:44 300 MG Clopidogrel Bisulfate 75 mg DAILY PO 05/18/25 10:00 05/23/25 10:30 75 MG Ondansetron HCl 4 mg Q4HP PRN IV 05/18/25 04:45 Acetaminophen 650 mg Q6HP PRN PO 05/18/25 04:45 05/19/25 21:22 650 MG Nitroglycerin 0.4 mg Q5MINP PRN SL 05/18/25 04:45 Levalbuterol HCl 1.25 mg Q6HR NEB 05/18/25 12:00 05/23/25 06:49 1.25 MG Ipratropium [place] 0.5 mg Q6HR NEB 05/18/25 12:00 05/23/25 06:49 0.5 MG Pantoprazole Sodium 40 mg DAILY IV 05/19/25 10:00 05/23/25 10:29 40 MG Dextrose 50 ml UD PRN IV 05/18/25 11:00 Insulin Glargine 15 units HS SC 05/18/25 22:00 05/22/25 21:47 15 UNITS Fentanyl Citrate 250 ml @ 2.5 mls/hr Q24H IV 05/19/25 11:30 05/23/25 06:47 20 MLS/HR Midazolam HCl 100 ml @ 1 mls/hr Q24H IV 05/19/25 17:30 05/23/25 01:02 10 MLS/HR Propofol 100 ml @ 2.61 mls/hr Q24H IV 05/19/25 23:15 05/21/25 03:13 5.22 MLS/HR Norepinephrine Bitartrate 250 ml @ 3.75 mls/hr Q24H IV 05/19/25 23:15 05/20/25 23:44 3.75 MLS/HR Nystatin 1 applic BID TOP 05/20/25 10:00 05/23/25 10:31 1 APPLIC Doxycycline Hyclate 100 ml @ 50 mls/hr Q12H IV 05/20/25 10:00 05/23/25 10:28 50 MLS/HR Bumetanide 2 mg BIDD IV 05/20/25 18:00 Cancel Bumetanide 2 mg BIDD IV 05/20/25 18:00 05/23/25 06:44 2 MG Micafungin Sodium 100 mg/Sodium Chloride 100 ml @ 100 mls/hr DAILY@0900 IV 05/21/25 09:20 05/23/25 10:29 100 MLS/HR Cefepime HCl 50 ml @ 12.5 mls/hr Q12H IV 05/21/25 11:00 05/22/25 22:58 12.5 MLS/HR Enteral Nutritional Formula 1,000 ml 30ML/HR GT 05/21/25 10:30 05/23/25 10:32 1,000 ML Amiodarone HCl 200 mg DAILY PO 05/23/25 10:00 05/23/25 10:30 200 MG Methylprednisolone Sodium Succinate 40 mg BID IV 05/22/25 10:00 05/23/25 10:28 40 MG Diagnostic Test (Pha) 1 strip ACHS 05/22/25 11:30 05/22/25 21:40 1 STRIP Insulin Human Regular ACHS SC 05/22/25 11:30 05/23/25 06:46 8 UNITS Enoxaparin Sodium 90 mg DAILY SC 05/23/25 10:00 05/23/25 10:31 90 MG Atorvastatin Calcium 40 mg HS GT 05/22/25 22:00 05/22/25 21:40 40 MG Laboratory Results Laboratory Tests 05/23/25 03:50 Chemistry Test 05/23/25 03:50 Calcium Level 8.4 mg/dL (8.7-10.4) L Urinalysis Test 05/18/25 20:20 Urine Color Colorless (Yellow) Urine Clarity Clear (Clear) Urine pH 5.5 (5.0-9.0) Urine Specific [place] 1.008 (1.001-1.035) Urine Protein Negative (Negative) Urine Ketones Negative (Negative) Urine Blood Trace /uL (Negative) H Urine Nitrite Negative (Negative) Urine Bilirubin Negative (Negative) Urine Urobilinogen Normal mg/dL (Negative) Urine Leukocyte Esterase 2+ /uL (Negative) Urine RBC 3 /hpf (0 - 3) Urine Microscopic WBC 57 /HPF (0-3) H Urine Squamous Epithelial Cells None seen /hpf (<5) Urine Bacteria None seen /hpf (None Seen) Urine Glucose Normal mg/dL (Normal) Blood Gas Results Test 05/22/25 13:35 05/23/25 07:36 Arterial Blood pH 7.349 (7.350-7.450) 7.395 (7.350-7.450) FiO2 % 70.0 80.0 Microbiology Microbiology Date/Time Source Procedure Growth Status 05/22/25 20:31 Bronchial Washings Gram Stain - Final Resulted 05/22/25 20:31 Bronchial Washings Respiratory Culture - Preliminary No growth Resulted 05/19/25 18:40 Nose MRSA Screen - Final Complete 05/18/25 03:07 Blood Blood Culture - Final NO GROWTH AFTER 5 DAYS OF INCUBATION. Complete Labs and/or images reviewed: Labs reviewed by me, Image(s) reviewed by me Assessment/Plan Assessment/Plan Impression: -Acute Hypoxic Respiratory Failure -CAD with previous CABG -DM -Community Acquired PNA, Gram +/ Gram - -? hx of Afib -NSTEMI ? type II -Sepsis -acute on chronic diastolic heart failure Plan: Events: Patient had bronchoscopy yesterday evening. FiO2 decreased to 60% while bedside. -antibiotics: Doxycycline, cefepime, micafungin -bronchodilators -increase tube feeding to 30 mL/hour -nephrology consultation: IV fluids and diuretics per their discretion -anticoagulation per Cardiology -PPI -sputum culture: Pending, no growth at this time -Repeat labs, chest x-ray, ABG in a.m. Critical care time spent with patient discussing and formulating plan of care: 40 minutes. This does not include time spent performing procedures. This medical document was created using an electronic medical record system with [employer] dictation system. Although this document has been carefully reviewed, there may still be some phonetic and typographical errors. These areas are purely typographical due to imperfections of the software programs, and do not reflect any compromise in the patient's medical care. Plan discussed with: Patient, Other (RN) My Orders Orders - CRISTIAN BUTT NP Procedure Category Date Status Time Ventilator Orders RT 05/22/25 Transmitted 12:04 Abg W/ Co-Ox RT 05/22/25 Logged 13:13 Date of Service: May 23, 2025 Billing Provider: CRISTIAN BUTT NP Common Visit Codes: [id number] CARE 30-74 MIN CRISTIAN BUTT NP May 23, 2025 11:16
--- NOTE | 2025-05-23 17:19 | DVHPN2 ---
Progress Note - Dictate Date Seen: May 23, 2025 Medical Necessity Reason Pt with a Central, PICC or Fol: Yes The following are medically ne: Central Line vital signs Vital Sign Date Time Temp Pulse Resp B/P (MAP) Pulse Ox O2 Delivery O2 Flow Rate FiO2 05/23/25 16:03 57 22 113/48 (69) 96 55 05/23/25 11:30 98.1 208.6 05/23/25 08:00 Mechanical Ventilator+ Total Intake and Output 05/22/25 05/22/25 05/23/25 15:00 23:00 07:00 Intake Total 477.5 ml 614.5 ml 605 ml Output Total 800 ml 900 ml Balance 477.5 ml -185.5 ml -295 ml medications Current Medications Medications Dose Ordered Sig/Ankur Route Start Time Stop Time Status Last Admin Dose Admin Gabapentin 300 mg TID PO 05/18/25 06:00 05/23/25 14:28 300 MG Clopidogrel Bisulfate 75 mg DAILY PO 05/18/25 10:00 05/23/25 10:30 75 MG Ondansetron HCl 4 mg Q4HP PRN IV 05/18/25 04:45 Acetaminophen 650 mg Q6HP PRN PO 05/18/25 04:45 05/19/25 21:22 650 MG Nitroglycerin 0.4 mg Q5MINP PRN SL 05/18/25 04:45 Levalbuterol HCl 1.25 mg Q6HR NEB 05/18/25 12:00 05/23/25 12:39 1.25 MG Ipratropium [place] 0.5 mg Q6HR NEB 05/18/25 12:00 05/23/25 12:39 0.5 MG Pantoprazole Sodium 40 mg DAILY IV 05/19/25 10:00 05/23/25 10:29 40 MG Dextrose 50 ml UD PRN IV 05/18/25 11:00 Insulin Glargine 15 units HS SC 05/18/25 22:00 05/22/25 21:47 15 UNITS Fentanyl Citrate 250 ml @ 2.5 mls/hr Q24H IV 05/19/25 11:30 05/23/25 06:47 20 MLS/HR Midazolam HCl 100 ml @ 1 mls/hr Q24H IV 05/19/25 17:30 05/23/25 01:02 10 MLS/HR Propofol 100 ml @ 2.61 mls/hr Q24H IV 05/19/25 23:15 05/21/25 03:13 5.22 MLS/HR Norepinephrine Bitartrate 250 ml @ 3.75 mls/hr Q24H IV 05/19/25 23:15 05/20/25 23:44 3.75 MLS/HR Nystatin 1 applic BID TOP 05/20/25 10:00 05/23/25 10:31 1 APPLIC Doxycycline Hyclate 100 ml @ 50 mls/hr Q12H IV 05/20/25 10:00 05/23/25 10:28 50 MLS/HR Bumetanide 2 mg BIDD IV 05/20/25 18:00 Cancel Bumetanide 2 mg BIDD IV 05/20/25 18:00 05/23/25 06:44 2 MG Micafungin Sodium 100 mg/Sodium Chloride 100 ml @ 100 mls/hr DAILY@0900 IV 05/21/25 09:20 05/23/25 10:29 100 MLS/HR Cefepime HCl 50 ml @ 12.5 mls/hr Q12H IV 05/21/25 11:00 05/23/25 14:28 12.5 MLS/HR Enteral Nutritional Formula 1,000 ml 30ML/HR GT 05/21/25 10:30 05/23/25 10:32 1,000 ML Amiodarone HCl 200 mg DAILY PO 05/23/25 10:00 05/23/25 10:30 200 MG Methylprednisolone Sodium Succinate 40 mg BID IV 05/22/25 10:00 05/23/25 10:28 40 MG Diagnostic Test (Pha) 1 strip ACHS 05/22/25 11:30 05/23/25 13:30 1 STRIP Insulin Human Regular ACHS SC 05/22/25 11:30 05/23/25 13:34 10 UNITS Enoxaparin Sodium 90 mg DAILY SC 05/23/25 10:00 05/23/25 10:31 90 MG Atorvastatin Calcium 40 mg HS GT 05/22/25 22:00 05/22/25 21:40 40 MG laboratory and microbiology Laboratory Tests 05/23/25 03:50 Test 05/23/25 03:50 Range/Units Serum Glucose 326 #H 74-106 mg/dL Assessment/Plan Impression Acute hypoxemic respiratory failure Pulmonary edema Pneumonia MENDEL Patient seen and examined in ICU Events On mechanical ventilation S/p intubation PEEP 10, FiO2 60% S/p bronchoscopy yesterday Labs and imaging reviewed ABG reviewed Management Vent support Titrate to maintain sats 90% or above Sedation for vent synchrony Continue antibiotics F/u cultures Bronchodilators Diurese Monitor renal function F/u nephrology, management deferred Monitor electrolytes Supplement as needed Pressors as needed for hemodynamic support To maintain a mean arterial pressure of 65 mmHg DVT prophylaxis Critical care time 35 minutes Dietary Evaluation Review Comments: Nutrition Recommendation: 1) EN Glucerna 1.2Cal @ 40ml/hr x 24hr (goal) along with Pro-stat 1 pk TID. TF at goal volume along with Propofol & Pro-stat provide 1589 kcal (100%), 103 gm protein (100%), and 773 ml free water. 2) Consider TPN/PN if NPO>7 days 3) Gordon 1 pk BID for DFU wound healing 4) Monitor NPO status, lab values, weight trend, and I/O Expected Outcomes/Goals: Wound to improve Intake to meet >75% estimated needs Lab values to improve FU 2-3 days Fluid Accumulation (Non Severe: Mild fluid retention Protein Calorie Malnutrition: N/A Is there a minimum of two crit: No Plan discussed with: Other (Rn) KIT RUBIO MD May 23, 2025 17:19
[2025-05-23] MEDS ORDERED: DEXTROSE (50%) 50ML SYRG IV PRN (20:15)
[2025-05-23] MEDS: InsuLIN REG 1unit/0.01ml Soln (100units/ml) SC SCH (23:50)
[2025-05-23] MEDS: ACCU-CHEK COMFORT CURVE STRIP VI SCH (23:51)
[2025-05-24] VITALS (110 sets, daily range): BP systolic 15–150; BP diastolic 48–69; PULSE 49–71; RESP 17–26; TEMP 97.3–98.6; O2SAT 76–100
[2025-05-24 03:45] LABS: Hematocrit 23.3 % (41.0-53.0); Mean Corpuscular Hemoglobin 28.3 pg (28.0-32.0); Nucleated Red Blood Cells % 0.2 %
[2025-05-24 03:48] LABS: Hemoglobin 7.6 g/dL (13.5-17.5); Mean Corpuscular Volume 86.4 fL (80.0-100.0)
[2025-05-24 03:54] LABS: Anion Gap 13 (5-15); Carbon Dioxide 22 mmol/L (20-31); Chloride 106 mmol/L (98-107); Potassium 4.6 mmol/L (3.5-5.1); Sodium 141 mmol/L (136-145)
[2025-05-24 03:58] LABS: Calcium 8.3 mg/dL (8.7-10.4)
[2025-05-24 04:00] LABS: BUN/Creatinine Ratio 35.1 (10.0-20.0)
[2025-05-24 04:01] LABS: Glucose 424 mg/dL (74-106)
[2025-05-24 04:04] LABS: Blood Urea Nitrogen 93 mg/dL (9-23)
--- NOTE | 2025-05-24 04:44 | DVH ---
EXAM: XY CHEST XRAY 1 VIEW HISTORY: INTUBATED COMPARISON: XY CHEST PORTABLE on DOS: 05/23/25, XY CHEST PORTABLE on DOS: 05/22/25, XY CHEST XRAY 1 VIEW on DOS: 05/21/25, XY CHEST PORTABLE on DOS: 05/20/25, XY CHEST PORTABLE on DOS: 05/19/25 TECHNIQUE: Portable AP view of the chest was performed. FINDINGS: Endotracheal tube is re-identified with its tip 5.4 cm above the aishwarya. OG tube and right IJ, right upper extremity PICC line, central line are re- identified. There is interstitial prominence centrally and in the lung bases. Left basilar opacity obscures the left hemidiaphragm and left heart border. No pneumothorax. The heart is enlarged. There are postoperative changes of CABG. IMPRESSION: 1. Mechanical ventilation with tubes and lines as above. 2. Cardiomegaly and postoperative changes of the heart with interstitial prominence suggestive of mild CHF. 3. Stable left basilar opacity may represent any combination of pneumonia, pleural effusion, and/or scarring.
[2025-05-24 08:56] LABS: Base Excess -3.4 mmol/L (-2.0-3.0)
--- NOTE | 2025-05-24 10:10 | DVHPN2 ---
Subjective Patient intubated and sedated. Reviewed: Care Plan, H&P, Labs, Medications Changes from previous H/P or p: No Changes General: Per HPI Objective Vitals Vital Signs Date Time Temp Pulse Resp B/P (MAP) Pulse Ox O2 Delivery O2 Flow Rate FiO2 05/24/25 09:51 56 22 110/48 (68) 98 50 05/24/25 06:45 98.4 209.1 05/24/25 06:00 Mechanical Ventilator+ Intake/Output Intake and Output 05/24/25 07:00 Intake Total 1539.0 ml Output Total 2475 ml Balance -936.0 ml Intake Oral 160 ml IV Total 1049.0 ml Tube Feeding 330 ml Output Urine Total 2475 ml General Appearance: moderate distress, Other (Intubated and sedated) HEENT: Atraumatic, PERRLA Lungs: Other (Bilateral rhonchi) Cardiovascular: Normal S1, Normal S2, Other (Sinus bradycardia with bundle- branch block) Abdomen: Normal bowel sounds, Soft, No tenderness Genitourinary: No Apparent Abnormalities (Nogueira catheter) Extremities: No edema, Normal pulses Neuro: Other (Unable to assess) Skin: Dry, Intact Psych/Mental Status: Other (Unable to assess) Medications Current Medications Medications Dose Ordered Sig/Ankur Route Start Time Stop Time Status Last Admin Dose Admin Gabapentin 300 mg TID PO 05/18/25 06:00 05/24/25 05:29 300 MG Clopidogrel Bisulfate 75 mg DAILY PO 05/18/25 10:00 05/23/25 10:30 75 MG Ondansetron HCl 4 mg Q4HP PRN IV 05/18/25 04:45 Acetaminophen 650 mg Q6HP PRN PO 05/18/25 04:45 05/19/25 21:22 650 MG Nitroglycerin 0.4 mg Q5MINP PRN SL 05/18/25 04:45 Levalbuterol HCl 1.25 mg Q6HR NEB 05/18/25 12:00 05/24/25 06:49 1.25 MG Ipratropium [place] 0.5 mg Q6HR NEB 05/18/25 12:00 05/24/25 06:49 0.5 MG Pantoprazole Sodium 40 mg DAILY IV 05/19/25 10:00 05/23/25 10:29 40 MG Fentanyl Citrate 250 ml @ 2.5 mls/hr Q24H IV 05/19/25 11:30 05/24/25 05:47 15 MLS/HR Midazolam HCl 100 ml @ 1 mls/hr Q24H IV 05/19/25 17:30 05/24/25 03:46 8 MLS/HR Propofol 100 ml @ 2.61 mls/hr Q24H IV 05/19/25 23:15 05/21/25 03:13 5.22 MLS/HR Norepinephrine Bitartrate 250 ml @ 3.75 mls/hr Q24H IV 05/19/25 23:15 05/20/25 23:44 3.75 MLS/HR Nystatin 1 applic BID TOP 05/20/25 10:00 05/23/25 21:21 1 APPLIC Doxycycline Hyclate 100 ml @ 50 mls/hr Q12H IV 05/20/25 10:00 05/23/25 21:21 50 MLS/HR Bumetanide 2 mg BIDD IV 05/20/25 18:00 Cancel Micafungin Sodium 100 mg/Sodium Chloride 100 ml @ 100 mls/hr DAILY@0900 IV 05/21/25 09:20 05/24/25 08:40 100 MLS/HR Cefepime HCl 50 ml @ 12.5 mls/hr Q12H IV 05/21/25 11:00 05/23/25 23:40 12.5 MLS/HR Enteral Nutritional Formula 1,000 ml 30ML/HR GT 05/21/25 10:30 05/23/25 10:32 1,000 ML Amiodarone HCl 200 mg DAILY PO 05/23/25 10:00 05/23/25 10:30 200 MG Enoxaparin Sodium 90 mg DAILY SC 05/23/25 10:00 05/23/25 10:31 90 MG Atorvastatin Calcium 40 mg HS GT 05/22/25 22:00 05/23/25 21:21 40 MG Diagnostic Test (Pha) 1 strip IQ4HR 05/24/25 00:00 05/24/25 08:00 1 STRIP Insulin Human Regular IQ4HR SC 05/24/25 00:00 05/24/25 08:00 12 UNITS Dextrose 50 ml UD PRN IV 05/23/25 20:15 Insulin Glargine 20 units HS SC 05/24/25 22:00 Laboratory Results Laboratory Tests 05/24/25 03:01 Chemistry Test 05/24/25 03:01 Calcium Level 8.3 mg/dL (8.7-10.4) L Urinalysis Test 05/18/25 20:20 Urine Color Colorless (Yellow) Urine Clarity Clear (Clear) Urine pH 5.5 (5.0-9.0) Urine Specific [place] 1.008 (1.001-1.035) Urine Protein Negative (Negative) Urine Ketones Negative (Negative) Urine Blood Trace /uL (Negative) H Urine Nitrite Negative (Negative) Urine Bilirubin Negative (Negative) Urine Urobilinogen Normal mg/dL (Negative) Urine Leukocyte Esterase 2+ /uL (Negative) Urine RBC 3 /hpf (0 - 3) Urine Microscopic WBC 57 /HPF (0-3) H Urine Squamous Epithelial Cells None seen /hpf (<5) Urine Bacteria None seen /hpf (None Seen) Urine Glucose Normal mg/dL (Normal) Blood Gas Results Test 05/24/25 08:50 Arterial Blood pH 7.413 (7.350-7.450) FiO2 % 55.0 Microbiology Microbiology Date/Time Source Procedure Growth Status 05/22/25 20:31 Bronchial Washings Gram Stain - Final Resulted 05/22/25 20:31 Bronchial Washings Respiratory Culture - Preliminary No growth Resulted 05/19/25 18:40 Nose MRSA Screen - Final Complete 05/18/25 03:07 Blood Blood Culture - Final NO GROWTH AFTER 5 DAYS OF INCUBATION. Complete Labs and/or images reviewed: Labs reviewed by me, Image(s) reviewed by me Assessment/Plan Assessment/Plan Impression: -Acute Hypoxic Respiratory Failure -CAD with previous CABG -DM -Community Acquired PNA, Gram +/ Gram - -? hx of Afib -NSTEMI ? type II -Sepsis -acute on chronic diastolic heart failure Plan: Events: No events overnight FiO2 decreased to 50% while bedside. Verbal order given to respiratory therapist to drop PEEP to eight if saturations remained greater than 95% -antibiotics: Doxycycline, cefepime, stop micafungin -bronchodilators -continue tube feeding, free water -stop diuretics -gentle IV hydration -anticoagulation per Cardiology -PPI -sputum culture: Pending, no growth at this time -Repeat labs, chest x-ray, ABG in a.m. Critical care time spent with patient discussing and formulating plan of care: 40 minutes. This does not include time spent performing procedures. This medical document was created using an electronic medical record system with [employer] computerized dictation system. Although this document has been carefully reviewed, there may still be some phonetic and typographical errors. These areas are purely typographical due to imperfections of the software programs, and do not reflect any compromise in the patient's medical care. Plan discussed with: Patient, Other (RN) My Orders Orders - CRISTIAN BUTT NP Procedure Category Date Status Time Glucose Blood PHA 05/24/25 In Process (Accu-Chek Comfort 00:00 Insulin R (Human) PHA 05/24/25 In Process (Insulin R) 00:00 Dextrose 50% Syringe PHA 05/23/25 In Process 20:15 Chest Xray 1 View XY 05/24/25 Resulted 04:00 Abg W/ Co-Ox RT 05/24/25 Logged 04:00 Insulin Lantus PHA 05/24/25 In Process (Glargine) (Lantus) 22:00 Sodium Bicarb PHA 05/24/25 In Process 50meq/50ml Vial 08:45 Date of Service: May 24, 2025 Billing Provider: CRISTIAN BUTT NP Common Visit Codes: [id number] CARE 30-74 MIN CRISTIAN BUTT NP May 24, 2025 10:10
--- NOTE | 2025-05-24 10:43 | DVHINCON2 ---
Date of service: May 24, 2025 Referring Physician Gabe Jenkins, nurse practitioner Reason for Consultation Acute kidney injury History of Present Illness Patient is a 70-year-old male with past medical history significant for CHF, AFib and DM is admitted for shortness of breath and hypoxemia. Patient is intubated on the ventilator, on admission patient found to have elevated BUN creatinine nephrology is consulted for acute kidney injury Past Medical History CHF, DM Past Surgical History Surgical History: CABG Allergies: Coded Allergies: NO KNOWN ALLERGIES (Unverified , 11/10/24) Home Meds Reported Medications Amiodarone Hcl (Amiodarone Hcl) 200 Mg Tab, 200 MG PO Q12HR for 30 Days 05/14/25 Furosemide (Furosemide) 40 Mg Tab, 40 MG PO BIDD for 30 Days, MG 05/14/25 Lansoprazole (Lansoprazole) 30 Mg Cap, 1 CAP PO DAILY, #30 CAP 5 Refills 05/14/25 Apixaban Base (ELIQUIS) 5 Mg Tab, 5 MG PO BID, TAB 05/14/25 Metformin Hydrochloride (Metformin Hcl) 1,000 Mg Tab, 1 TAB PO BIDWM for DIABETES TAKE WITH MORNING AND EVENING MEALS 01/09/25 Insulin Glargine (Lantus Solostar) 100 Unit/Ml Inj, 30 UNIT SC QPM for DIABETES 01/09/25 Gabapentin (Gabapentin) 100 Mg Cap, 1 CAP PO HS for NEUROPATHY 01/09/25 Ferrous Sulfate Dried (Iron High Potency) 65 Mg Tab, 1 TAB PO BID for SUPPLEMENT 01/09/25 Cholecalciferol (Vitamin D3) 1,000 Unit Cap, 1 CAP PO DAILY for SUPPLEMENT 01/09/25 Amlodipine Besylate (Amlodipine Besylate) 10 Mg Tab, 1 TAB PO QAM for HYPERTENSION 01/09/25 Aspirin (Aspirin Low Dose) 81 Mg Chw, 1 TAB PO DAILY for HEART ATTACK PREVENTION 10/15/23 Insulin Glargine (Lantus Solostar) 100 Unit/Ml Inj, 20 UNIT SC QAM for DIABETES 10/15/23 Atorvastatin Calcium (Lipitor) 40 Mg Tab, 1 TAB PO HS for HIGH CHOLESTEROL 10/15/23 Losartan Potassium (Losartan Potassium) 100 Mg Tab, 1 TAB PO QAM for HYPERTENSION 10/15/23 Glimepiride (Glimepiride) 4 Mg Tab, 1 TAB PO BID for DIABETES 10/15/23 Current Medications Current Medications Medications (Trade) Dose Ordered Sig/Aknur Route PRN Reason Start Time Stop Time Status Last Admin Diagnostic Test (Pha) (Accu-Chek Comfort Curve T) 1 strip IQ4HR 05/24/25 00:00 05/24/25 12:00 Insulin Human Regular (InsuLIN R) IQ4HR SC 05/24/25 00:00 05/24/25 12:00 Dextrose 50 ml UD PRN IV Blood Sugar LESS THAN 60 05/23/25 20:15 Insulin Glargine (Lantus) 20 units HS SC 05/24/25 22:00 Dopamine HCl/ Dextrose 250 ml @ 6.33 mls/hr Q24H IV 05/24/25 10:45 05/24/25 12:29 Micafungin Sodium 100 mg/Sodium Chloride 100 ml @ 100 mls/hr DAILY@0800 IV 05/24/25 15:00 Family History: Diabetes mellitus G8 MOTHER, G8 FATHER, Review of Systems Can not be obtained H&P Exam Vital Signs/I&O Vital Sign Date Time Temp Pulse Resp B/P (MAP) Pulse Ox O2 Delivery O2 Flow Rate FiO2 05/24/25 14:15 97.9 61 22 143/53 (83) 98 208.2 05/24/25 14:00 Mechanical Ventilator+ 50 50 Intake and Output 05/23/25 05/24/25 19:00 07:00 Intake Total 761.0 ml 778.0 ml Output Total 1000 ml 1475 ml Balance -239.0 ml -697.0 ml Intake Oral 60 ml 100 ml IV Total 610.0 ml 439.0 ml Tube Feeding 91 ml 239 ml Output Urine Total 1000 ml 1475 ml Physical Exam Patient intubated on ventilator Lungs bibasilar crackles Cardiac exam regular rate and rhythm GI soft nontender Nogueira catheter Extremities no clubbing cyanosis or edema Neuro patient is a sedated Labs/Diagnostic Data Labs/Diagnostic Data Laboratory Tests Test 05/24/25 13:04 05/24/25 08:50 05/24/25 03:01 05/23/25 07:36 Range/Units Vitamin D 25-Hydroxy 40.6 30.0-100 ng/mL Hepatitis B Surface Antigen Negative Negative Hepatitis C Antibody Negative Negative Blood Gas Specimen Type Arterial Arterial Blood Gas Sample Site Left radial Right radial Blood Gas Patient Temperature 37.0 37.0 Arterial Blood Date Drawn [id number] Arterial Blood pH 7.413 7.395 7.350-7.450 Arterial Blood Partial Pressure CO2 33.1 L 32.7 L 35.0-48.0 mmHg Arterial Blood Partial Pressure O2 85.0 100.1 83.0-108.0 mmHg Arterial Blood HCO3 20.7 L 19.6 L 21.0-28.0 mmol/L Arterial Blood Oxygen Saturation 95.1 96.4 94.0-98.0 % Arterial Blood Base Excess -3.4 L -4.6 L -2.0-3.0 mmol/L Arterial Blood Oxyhemoglobin 94.7 95.9 94.0-98.0 % Arterial Blood Carboxyhemoglobin 0.3 L 0.2 L 0.5-1.5 % Arterial Blood Methemoglobin 0.1 0.3 0.0-1.5 % Arterial Blood Deoxyhemoglobin 4.9 3.6 0.0-5.0 % Indra Test Modified Modified Blood Gas Total Hemoglobin 9.40 L 9.80 L 13.5-17.5 g/dL Blood Gas Set Respiration Rate 22.0 22.0 Blood Gas Modality Vent - ac Vent - ac FiO2 % 55.0 80.0 Blood Gas Tidal Volume 550.0 550.0 Blood Gas PEEP or CPAP 10.0 10.0 White Blood Count 4.5 4.4-10.8 10^3/uL Red Blood Count 2.70 L 4.5-5.90 10^6/uL Hemoglobin 7.6 L 13.5-17.5 g/dL Hematocrit 23.3 L 41.0-53.0 % Mean Corpuscular Volume 86.4 80.0-100.0 fL Mean Corpuscular Hemoglobin 28.3 28.0-32.0 pg Mean Corpuscular Hemoglobin Concent 32.7 32.0-36.0 g/dL Red Cell Distribution Width 16.9 H 11.8-14.3 % Platelet Count 335 140-450 10^3/uL Mean Platelet Volume 8.1 6.9-10.8 fL Neutrophils (%) (Auto) 87.7 H 37.0-80.0 % Lymphocytes (%) (Auto) 6.1 L 10.0-50.0 % Monocytes (%) (Auto) 6.2 0.0-12.0 % Eosinophils (%) (Auto) 0.0 0.0-7.0 % Basophils (%) (Auto) 0.0 0.0-2.0 % Neutrophils # (Auto) 3.9 1.6-8.6 10 ^3/uL Lymphocytes # (Auto) 0.3 L 0.4-5.4 10 ^3/uL Monocytes # (Auto) 0.3 0-1.3 10 ^3/uL Eosinophils # (Auto) 0 0-0.8 10 ^3/uL Basophils # (Auto) 0 0-0.2 10 ^3/uL Nucleated Red Blood Cells 0.2 % Sodium Level 141 136-145 mmol/L Potassium Level 4.6 3.5-5.1 mmol/L Chloride Level 106 98-107 mmol/L Carbon Dioxide Level 22 20-31 mmol/L Anion Gap 13 5-15 Blood Urea Nitrogen 93 #*H 9-23 mg/dL Creatinine 2.65 H 0.700-1.30 mg/dL Glomerular Filtration Rate Calc 25 >90 mL/min BUN/Creatinine Ratio 35.1 H 10.0-20.0 Serum Glucose 424 *H 74-106 mg/dL Calcium Level 8.3 L 8.7-10.4 mg/dL Phosphorus Level 4.8 2.4-5.1 mg/dL Magnesium Level 2.3 1.6-2.6 mg/dL Parathyroid Hormone (Intact) 164.3 H 18.4-80.1 pg/mL Test 05/23/25 03:50 05/22/25 13:35 05/22/25 10:36 05/22/25 07:23 Range/Units White Blood Count 4.9 # 4.4-10.8 10^3/uL Red Blood Count 2.57 L 4.5-5.90 10^6/uL Hemoglobin 7.3 L 13.5-17.5 g/dL Hematocrit 22.0 L 41.0-53.0 % Mean Corpuscular Volume 85.5 80.0-100.0 fL Mean Corpuscular Hemoglobin 28.6 28.0-32.0 pg Mean Corpuscular Hemoglobin Concent 33.4 32.0-36.0 g/dL Red Cell Distribution Width 17.2 H 11.8-14.3 % Platelet Count 325 140-450 10^3/uL Mean Platelet Volume 8.3 6.9-10.8 fL Neutrophils (%) (Auto) 87.6 H 37.0-80.0 % Lymphocytes (%) (Auto) 6.8 L 10.0-50.0 % Monocytes (%) (Auto) 5.3 0.0-12.0 % Eosinophils (%) (Auto) 0.1 0.0-7.0 % Basophils (%) (Auto) 0.2 0.0-2.0 % Neutrophils # (Auto) 4.3 1.6-8.6 10 ^3/uL Lymphocytes # (Auto) 0.3 L 0.4-5.4 10 ^3/uL Monocytes # (Auto) 0.3 0-1.3 10 ^3/uL Eosinophils # (Auto) 0 0-0.8 10 ^3/uL Basophils # (Auto) 0 0-0.2 10 ^3/uL Nucleated Red Blood Cells 0.3 % Sodium Level 140 136-145 mmol/L Potassium Level 4.6 3.5-5.1 mmol/L Chloride Level 107 98-107 mmol/L Carbon Dioxide Level 22 20-31 mmol/L Anion Gap 11 5-15 Blood Urea Nitrogen 75 #H 9-23 mg/dL Creatinine 2.77 H 0.700-1.30 mg/dL Glomerular Filtration Rate Calc 24 >90 mL/min BUN/Creatinine Ratio 27.1 H 10.0-20.0 Serum Glucose 326 #H 74-106 mg/dL Calcium Level 8.4 L 8.7-10.4 mg/dL Blood Gas Specimen Type Arterial Arterial Arterial Blood Gas Sample Site Right radial Right radial Right radial Blood Gas Patient Temperature 37.0 37.0 37.0 Arterial Blood Date Drawn [id number] Arterial Blood pH 7.349 L 7.404 7.512 H 7.350-7.450 Arterial Blood Partial Pressure CO2 36.7 32.0 L 22.5 L 35.0-48.0 mmHg Arterial Blood Partial Pressure O2 77.4 L 87.2 87.6 83.0-108.0 mmHg Arterial Blood HCO3 19.8 L 19.6 L 17.6 L 21.0-28.0 mmol/L Arterial Blood Oxygen Saturation 91.7 L 95.3 96.1 94.0-98.0 % Arterial Blood Base Excess -5.4 L -4.6 L -4.4 L -2.0-3.0 mmol/L Arterial Blood Oxyhemoglobin 90.6 L 94.9 95.6 94.0-98.0 % Arterial Blood Carboxyhemoglobin 0.3 L 0.3 L 0.3 L 0.5-1.5 % Arterial Blood Methemoglobin 0.9 0.1 0.2 0.0-1.5 % Arterial Blood Deoxyhemoglobin 8.2 H 4.7 3.9 0.0-5.0 % Indra Test Modified Modified Modified Blood Gas Total Hemoglobin 7.30 L 8.10 L 8.50 L 13.5-17.5 g/dL Blood Gas Set Respiration Rate 22.0 22.0 22.0 Blood Gas Modality Vent - ac Vent - p/c Vent - p/c FiO2 % 70.0 45.0 50.0 Blood Gas Tidal Volume 550.0 Blood Gas PEEP or CPAP 10.0 10.0 12.0 Test 05/22/25 03:50 05/21/25 09:28 05/21/25 03:40 05/20/25 11:46 Range/Units White Blood Count 6.7 5.9 # 4.4-10.8 10^3/uL Red Blood Count 2.63 L 2.59 L 4.5-5.90 10^6/uL Hemoglobin 7.6 L 7.4 L 13.5-17.5 g/dL Hematocrit 22.0 L 21.9 L 41.0-53.0 % Mean Corpuscular Volume 83.7 84.6 80.0-100.0 fL Mean Corpuscular Hemoglobin 28.8 28.5 28.0-32.0 pg Mean Corpuscular Hemoglobin Concent 34.4 33.6 32.0-36.0 g/dL Red Cell Distribution Width 16.9 H 16.5 H 11.8-14.3 % Platelet Count 303 238 140-450 10^3/uL Mean Platelet Volume 8.3 8.1 6.9-10.8 fL Neutrophils (%) (Auto) 93.3 H 88.9 H 37.0-80.0 % Lymphocytes (%) (Auto) 4.5 L 6.3 L 10.0-50.0 % Monocytes (%) (Auto) 2.0 4.5 0.0-12.0 % Eosinophils (%) (Auto) 0.0 0.0 0.0-7.0 % Basophils (%) (Auto) 0.2 0.3 0.0-2.0 % Neutrophils # (Auto) 6.2 5.2 1.6-8.6 10 ^3/uL Lymphocytes # (Auto) 0.3 L 0.4 0.4-5.4 10 ^3/uL Monocytes # (Auto) 0.1 0.3 0-1.3 10 ^3/uL Eosinophils # (Auto) 0 0 0-0.8 10 ^3/uL Basophils # (Auto) 0 0 0-0.2 10 ^3/uL Nucleated Red Blood Cells 0.3 0.1 % Sodium Level 141 140 136-145 mmol/L Potassium Level 4.4 4.6 3.5-5.1 mmol/L Chloride Level 107 105 98-107 mmol/L Carbon Dioxide Level 21 22 20-31 mmol/L Anion Gap 13 13 5-15 Blood Urea Nitrogen 56 #H 43 #H 9-23 mg/dL Creatinine 2.45 H 2.24 H 0.700-1.30 mg/dL Glomerular Filtration Rate Calc 27 30 >90 mL/min BUN/Creatinine Ratio 22.9 H 19.2 10.0-20.0 Serum Glucose 193 H 216 H 74-106 mg/dL Calcium Level 8.6 L 8.3 L 8.7-10.4 mg/dL Blood Gas Specimen Type Arterial Blood Gas Sample Site Left radial Blood Gas Patient Temperature 37.0 Arterial Blood Date Drawn [id number] Arterial Blood pH 7.438 7.350-7.450 Arterial Blood Partial Pressure CO2 32.0 L 35.0-48.0 mmHg Arterial Blood Partial Pressure O2 73.6 L 83.0-108.0 mmHg Arterial Blood HCO3 21.1 21.0-28.0 mmol/L Arterial Blood Oxygen Saturation 93.8 L 94.0-98.0 % Arterial Blood Base Excess -2.6 L -2.0-3.0 mmol/L Arterial Blood Oxyhemoglobin 93.3 L 94.0-98.0 % Arterial Blood Carboxyhemoglobin 0.3 L 0.5-1.5 % Arterial Blood Methemoglobin 0.2 0.0-1.5 % Arterial Blood Deoxyhemoglobin 6.2 H 0.0-5.0 % Indra Test Modified Blood Gas Total Hemoglobin 8.30 L 13.5-17.5 g/dL Blood Gas Set Respiration Rate 22.0 Blood Gas Modality Vent - ac Blood Gas Spontaneous Rate 22 FiO2 % 70.0 Blood Gas Spontaneous Tidal Volume 625 Blood Gas Inspiratory Pressure 20.0 Blood Gas PEEP or CPAP 12.0 Bl Gas Inspiratory/Expiratory Ratio 1:1.0 POC Glucose 195 H 70-106 mg/dl Test 05/20/25 11:00 05/20/25 07:59 05/20/25 06:38 05/20/25 04:07 Range/Units Blood Gas Specimen Type Arterial Arterial Blood Gas Sample Site Left radial Right radial Blood Gas Patient Temperature 37.0 37.0 Arterial Blood Date Drawn [id number] Arterial Blood pH 7.307 L 7.219 *L 7.350-7.450 Arterial Blood Partial Pressure CO2 45.8 55.9 H 35.0-48.0 mmHg Arterial Blood Partial Pressure O2 61.3 L 85.5 83.0-108.0 mmHg Arterial Blood HCO3 22.4 22.3 21.0-28.0 mmol/L Arterial Blood Oxygen Saturation 89.3 L 94.3 94.0-98.0 % Arterial Blood Base Excess -3.8 L -5.6 L -2.0-3.0 mmol/L Arterial Blood Oxyhemoglobin 89.0 L 93.6 L 94.0-98.0 % Arterial Blood Carboxyhemoglobin 0.2 L 0.5 0.5-1.5 % Arterial Blood Methemoglobin 0.1 0.2 0.0-1.5 % Arterial Blood Deoxyhemoglobin 10.7 H 5.7 H 0.0-5.0 % Indra Test Modified Modified Blood Gas Total Hemoglobin 8.90 L 9.90 L 13.5-17.5 g/dL Blood Gas Set Respiration Rate 22.0 18.0 Blood Gas Modality Vent - p/c Vent - p/c FiO2 % 100.0 100.0 Blood Gas PEEP or CPAP 12.0 12.0 Blood Gas Comments Pc 20 i-time 1.36 POC Glucose 175 H 166 H 70-106 mg/dl Blood Gas Inspiratory Pressure 20.0 Blood Gas Critical Value Read Back yes Blood Gas Notified Whom [email or web address] unpaid intern Blood Gas Notified Time [id number] Blood Gas Notified By arleen cloth pattern maker Test 05/20/25 03:40 05/20/25 00:00 05/19/25 21:29 05/19/25 20:24 Range/Units White Blood Count 19.6 #H 4.4-10.8 10^3/uL Red Blood Count 2.76 L 4.5-5.90 10^6/uL Hemoglobin 7.7 L 8.0 L 13.5-17.5 g/dL Hematocrit 23.9 L 25.0 L 41.0-53.0 % Mean Corpuscular Volume 86.6 80.0-100.0 fL Mean Corpuscular Hemoglobin 28.1 28.0-32.0 pg Mean Corpuscular Hemoglobin Concent 32.4 32.0-36.0 g/dL Red Cell Distribution Width 17.2 H 11.8-14.3 % Platelet Count 339 140-450 10^3/uL Mean Platelet Volume 7.8 6.9-10.8 fL Neutrophils (%) (Auto) 87.7 H 37.0-80.0 % Lymphocytes (%) (Auto) 4.6 L 10.0-50.0 % Monocytes (%) (Auto) 7.0 0.0-12.0 % Eosinophils (%) (Auto) 0.6 0.0-7.0 % Basophils (%) (Auto) 0.1 0.0-2.0 % Neutrophils # (Auto) 17.2 H 1.6-8.6 10 ^3/uL Lymphocytes # (Auto) 0.9 0.4-5.4 10 ^3/uL Monocytes # (Auto) 1.4 H 0-1.3 10 ^3/uL Eosinophils # (Auto) 0.1 0-0.8 10 ^3/uL Basophils # (Auto) 0 0-0.2 10 ^3/uL Nucleated Red Blood Cells 0.0 % Sodium Level 139 136-145 mmol/L Potassium Level 4.3 3.5-5.1 mmol/L Chloride Level 104 98-107 mmol/L Carbon Dioxide Level 25 20-31 mmol/L Anion Gap 10 5-15 Blood Urea Nitrogen 33 #H 9-23 mg/dL Creatinine 2.17 H 0.700-1.30 mg/dL Glomerular Filtration Rate Calc 32 >90 mL/min BUN/Creatinine Ratio 15.2 10.0-20.0 Serum Glucose 166 H 74-106 mg/dL Calcium Level 7.8 L 8.7-10.4 mg/dL Total Bilirubin 0.5 0.2-1.0 mg/dL Aspartate Amino Transferase (AST) 42 H 13-40 U/L Alanine Aminotransferase (ALT) 49 H 7-40 U/L Alkaline Phosphatase 95 46-116 U/L Total Protein 5.5 L 5.7-8.2 g/dL Albumin 3.0 L 3.2-4.8 g/dL POC Glucose 185 H 247 H 70-106 mg/dl Test 05/19/25 17:02 05/19/25 15:19 05/19/25 11:50 05/19/25 08:59 Range/Units POC Glucose 210 H 224 H 167 H 70-106 mg/dl Blood Gas Specimen Type Arterial Blood Gas Sample Site Right radial Blood Gas Patient Temperature 37.0 Arterial Blood Date Drawn [id number] Arterial Blood pH 7.366 7.350-7.450 Arterial Blood Partial Pressure CO2 40.2 35.0-48.0 mmHg Arterial Blood Partial Pressure O2 80.2 L 83.0-108.0 mmHg Arterial Blood HCO3 22.5 21.0-28.0 mmol/L Arterial Blood Oxygen Saturation 94.2 94.0-98.0 % Arterial Blood Base Excess -2.6 L -2.0-3.0 mmol/L Arterial Blood Oxyhemoglobin 93.2 L 94.0-98.0 % Arterial Blood Carboxyhemoglobin 0.5 0.5-1.5 % Arterial Blood Methemoglobin 0.6 0.0-1.5 % Arterial Blood Deoxyhemoglobin 5.7 H 0.0-5.0 % Indra Test Modified Blood Gas Total Hemoglobin 10.00 L 13.5-17.5 g/dL Blood Gas Set Respiration Rate 18.0 Blood Gas Modality Vent - p/c FiO2 % 100.0 Blood Gas Inspiratory Pressure 20.0 Blood Gas PEEP or CPAP 12.0 Test 05/19/25 06:40 05/19/25 04:26 05/19/25 03:38 05/19/25 00:20 Range/Units Blood Gas Specimen Type Arterial Blood Gas Sample Site Right radial Blood Gas Patient Temperature 37.0 Arterial Blood Date Drawn [id number] Arterial Blood pH 7.445 7.350-7.450 Arterial Blood Partial Pressure CO2 36.6 35.0-48.0 mmHg Arterial Blood Partial Pressure O2 73.5 L 83.0-108.0 mmHg Arterial Blood HCO3 24.6 21.0-28.0 mmol/L Arterial Blood Oxygen Saturation 94.3 94.0-98.0 % Arterial Blood Base Excess 0.6 -2.0-3.0 mmol/L Arterial Blood Oxyhemoglobin 93.6 L 94.0-98.0 % Arterial Blood Carboxyhemoglobin 0.3 L 0.5-1.5 % Arterial Blood Methemoglobin 0.4 0.0-1.5 % Indra Test Yes Blood Gas Total Hemoglobin 9.50 L 13.5-17.5 g/dL Blood Gas Set Respiration Rate 14.0 Blood Gas Modality Mask - bipap FiO2 % 100.0 Blood Gas EPAP 6 Blood Gas IPAP 12 White Blood Count 12.3 H 4.4-10.8 10^3/uL Red Blood Count 2.82 L 4.5-5.90 10^6/uL Hemoglobin 7.8 L 13.5-17.5 g/dL Hematocrit 23.6 #L 41.0-53.0 % Mean Corpuscular Volume 83.8 80.0-100.0 fL Mean Corpuscular Hemoglobin 27.6 L 28.0-32.0 pg Mean Corpuscular Hemoglobin Concent 33.0 32.0-36.0 g/dL Red Cell Distribution Width 16.6 H 11.8-14.3 % Platelet Count 282 140-450 10^3/uL Mean Platelet Volume 7.6 6.9-10.8 fL Neutrophils (%) (Auto) 82.8 H 37.0-80.0 % Lymphocytes (%) (Auto) 6.8 L 10.0-50.0 % Monocytes (%) (Auto) 9.3 0.0-12.0 % Eosinophils (%) (Auto) 0.9 0.0-7.0 % Basophils (%) (Auto) 0.2 0.0-2.0 % Neutrophils # (Auto) 10.2 H 1.6-8.6 10 ^3/uL Lymphocytes # (Auto) 0.8 0.4-5.4 10 ^3/uL Monocytes # (Auto) 1.1 0-1.3 10 ^3/uL Eosinophils # (Auto) 0.1 0-0.8 10 ^3/uL Basophils # (Auto) 0 0-0.2 10 ^3/uL Nucleated Red Blood Cells 0.0 % Sodium Level 138 136-145 mmol/L Potassium Level 3.4 L 3.5-5.1 mmol/L Chloride Level 103 98-107 mmol/L Carbon Dioxide Level 24 20-31 mmol/L Anion Gap 11 5-15 Blood Urea Nitrogen 23 9-23 mg/dL Creatinine 1.41 H 0.700-1.30 mg/dL Glomerular Filtration Rate Calc 53 >90 mL/min BUN/Creatinine Ratio 16.3 10.0-20.0 Serum Glucose 117 #H 74-106 mg/dL Calcium Level 8.9 8.7-10.4 mg/dL POC Glucose 130 H 87 70-106 mg/dl Test 05/18/25 22:13 05/18/25 20:29 05/18/25 20:20 05/18/25 14:43 Range/Units POC Glucose 100 135 H 70-106 mg/dl Urine Color Colorless Yellow Urine Clarity Clear Clear Urine pH 5.5 5.0-9.0 Urine Specific [place] 1.008 1.001-1.035 Urine Protein Negative Negative Urine Ketones Negative Negative Urine Blood Trace H Negative /uL Urine Nitrite Negative Negative Urine Bilirubin Negative Negative Urine Urobilinogen Normal Negative mg/dL Urine Leukocyte Esterase 2+ Negative /uL Urine RBC 3 0 - 3 /hpf Urine Microscopic WBC 57 H 0-3 /HPF Urine Squamous Epithelial Cells None seen <5 /hpf Urine Bacteria None seen None Seen /hpf Urine Glucose Normal Normal mg/dL Troponin I High Sensitivity 559 *H </=54 ng/L Test 05/18/25 12:48 05/18/25 11:55 05/18/25 11:34 05/18/25 06:00 Range/Units Troponin I High Sensitivity 766 *H 754 *H 206 *H </=54 ng/L POC Glucose 292 H 70-106 mg/dl Test 05/18/25 05:39 05/18/25 04:57 05/18/25 04:50 05/18/25 03:55 Range/Units POC Glucose 419 *H 70-106 mg/dl Lactic Acid Level 3.2 *H 0.4-2.0 mmol/L D-Dimer, Quantitative 3.05 H 0.0-0.49 mg/L FEU Troponin I High Sensitivity 46 </=54 ng/L Test 05/18/25 03:05 05/18/25 03:02 05/18/25 02:50 Range/Units Influenza Type A Antigen Negative Negative Influenza Type B Antigen Negative Negative SARS-CoV-2 Antigen (Rapid) Negative NEGATIVE Blood Gas Specimen Type Arterial Blood Gas Sample Site Right radial Blood Gas Patient Temperature 37.0 Arterial Blood Date Drawn [id number] Arterial Blood pH 7.334 L 7.350-7.450 Arterial Blood Partial Pressure CO2 35.5 35.0-48.0 mmHg Arterial Blood Partial Pressure O2 117.0 H 83.0-108.0 mmHg Arterial Blood HCO3 18.5 L 21.0-28.0 mmol/L Arterial Blood Oxygen Saturation 97.7 94.0-98.0 % Arterial Blood Base Excess -6.7 L -2.0-3.0 mmol/L Arterial Blood Oxyhemoglobin 96.6 94.0-98.0 % Arterial Blood Carboxyhemoglobin 0.7 0.5-1.5 % Arterial Blood Methemoglobin 0.4 0.0-1.5 % Indra Test Modified Blood Gas Total Hemoglobin 9.90 L 13.5-17.5 g/dL Blood Gas Modality Mask - bipap FiO2 % 100.0 Blood Gas EPAP 6 Blood Gas IPAP 12 White Blood Count 14.2 H 4.4-10.8 10^3/uL Red Blood Count 3.22 L 4.5-5.90 10^6/uL Hemoglobin 9.1 L 13.5-17.5 g/dL Hematocrit 27.8 L 41.0-53.0 % Mean Corpuscular Volume 86.3 80.0-100.0 fL Mean Corpuscular Hemoglobin 28.4 28.0-32.0 pg Mean Corpuscular Hemoglobin Concent 32.9 32.0-36.0 g/dL Red Cell Distribution Width 16.2 H 11.8-14.3 % Platelet Count 329 140-450 10^3/uL Mean Platelet Volume 7.5 6.9-10.8 fL Neutrophils (%) (Auto) 78.5 37.0-80.0 % Lymphocytes (%) (Auto) 10.9 10.0-50.0 % Monocytes (%) (Auto) 9.6 0.0-12.0 % Eosinophils (%) (Auto) 0.9 0.0-7.0 % Basophils (%) (Auto) 0.1 0.0-2.0 % Neutrophils # (Auto) 11.1 H 1.6-8.6 10 ^3/uL Lymphocytes # (Auto) 1.6 0.4-5.4 10 ^3/uL Monocytes # (Auto) 1.4 H 0-1.3 10 ^3/uL Eosinophils # (Auto) 0.1 0-0.8 10 ^3/uL Basophils # (Auto) 0 0-0.2 10 ^3/uL Nucleated Red Blood Cells 0.0 % Sodium Level 138 136-145 mmol/L Potassium Level 4.5 3.5-5.1 mmol/L Chloride Level 103 98-107 mmol/L Carbon Dioxide Level 20 20-31 mmol/L Anion Gap 15 5-15 Blood Urea Nitrogen 24 H 9-23 mg/dL Creatinine 1.62 H 0.700-1.30 mg/dL Glomerular Filtration Rate Calc 45 >90 mL/min BUN/Creatinine Ratio 14.8 10.0-20.0 Serum Glucose 316 H 74-106 mg/dL Hemoglobin A1c 7.2 H <5.7 % A1C Lactic Acid Level 4.5 *H 0.4-2.0 mmol/L Calcium Level 8.8 8.7-10.4 mg/dL Total Bilirubin 0.6 0.2-1.0 mg/dL Aspartate Amino Transferase (AST) 68 H 13-40 U/L Alanine Aminotransferase (ALT) 88 H 7-40 U/L Alkaline Phosphatase 123 H 46-116 U/L Troponin I High Sensitivity 18 </=54 ng/L B-Type Natriuretic Peptide 549.46 0-100 pg/mL Total Protein 7.3 5.7-8.2 g/dL Albumin 4.0 3.2-4.8 g/dL Microbiology Date/Time Source Procedure Growth Status 05/19/25 18:40 Nose MRSA Screen - Final Complete 05/18/25 03:07 Blood Blood Culture - Final NO GROWTH AFTER 5 DAYS OF INCUBATION. Complete Assessment Acute kidney injury superimposed Chronic Kidney Disease secondary hemodynamic mediated Acute hypoxic respiratory failure, patient intubated on ventilator Pneumonia Septic shock Congestive heart failure exacerbation AFib Diabetes mellitus type 2 Hypoalbuminemia Anemia of chronic kidney disease Recommendations Closely monitor fluid and electrolytes Avoid nephrotoxic medications Nogueira catheter Strict I&Os Low-dose dopamine Albumin 25% IV piggyback IV antibiotics Check urine electrolytes and protein excretion Check kidney ultrasound We will continue to follow Patient seen and examined by myself in the ICU. I discussed my plan of care with the primary nurse at the bedside I would like to thank Gabe for the consult, will follow up Plan discussed with: Other (Nurse) JACINTA TUBBS MD May 24, 2025 10:43
--- NOTE | 2025-05-24 10:50 | ECG ---
[facility] Test Date: 2025-05-18 Test Time: 10:39:31 Pat Name: CURTIS PASCUAL Department: Room: [address] [place] [address] A Gender: M Product Support Manager: JOSÉ MANUEL : 1955 Requested By: JACQUI MIRAMONTES Order Number: [id number] Reading MD: Henri Forbes Measurements Intervals [place] Rate: 70 P: 57 W[place]: 158 QRS: 85 QRSD: 150 T: -78 QT: 439 QTc: 474 Interpretive Statements Sinus rhythm Left bundle branch block Baseline wander in lead(s) V5 Electronically Signed On 05-24-2025 17:40:42 PST by Henri Forbes Please click the below link to view image of tracing.
[2025-05-24] MEDS: SODIUM BICARB 50mEq/50ml Vial 50 ML in SOD CHL 0.45% 1,000 ML IV ONE (10:54)
[2025-05-24] MEDS: ALBUMIN 25% 100 ML IV ONE (12:20)
[2025-05-24] MEDS: DOPamine 1600MCG/ML D5W 250 ML IV SCH (12:29)
[2025-05-24 12:40] LABS: Magnesium 2.3 mg/dL (1.6-2.6)
--- NOTE | 2025-05-24 12:45 | DVH ---
INDICATION: cristine TECHNIQUE: Multiple real-time sonographic images of the kidneys and bladder were obtained. COMPARISON: US KIDNEY on DOS: 05/13/25, US RT LOW EXT ART DUPLEX on DOS: 04/21/25, US BILAT LOWER DVT on DOS: 02/07/25, US KIDNEY on DOS: 03/24/24, US KIDNEY on DOS: 02/01/24 FINDINGS: The right kidney measures 10 cm in length, which is normal in size. No hydronephrosis. The left kidney measures 11 cm in length, which is normal in size. No hydronephrosis. Multiple renal cysts measuring 4 cm right kidney and 3 cm left kidney. Increased bilateral renal echogenicity. Incidental note made of small right pleural effusion and ascites. IMPRESSION: 1. Bilateral medical renal disease. 2. Incidental note made of small right pleural effusion and ascites.
[2025-05-24 13:59] LABS: Hepatitis B Surface Antigen Negative (Negative)
[2025-05-24 14:19] LABS: Hepatitis C Antibody Negative (Negative)
[2025-05-24] MEDS: MICAFUNGIN SODIUM 100 MG in SODIUM CHL 0.9% 100 ML IV SCH (15:21)
--- NOTE | 2025-05-24 17:07 | DVHPN2 ---
Progress Note - Dictate Date Seen: May 24, 2025 Medical Necessity Reason Pt with a Central, PICC or Fol: Yes The following are medically ne: Central Line vital signs Vital Sign Date Time Temp Pulse Resp B/P (MAP) Pulse Ox O2 Delivery O2 Flow Rate FiO2 05/24/25 16:55 139/54 05/24/25 15:33 67 22 97 50 05/24/25 14:15 97.9 208.2 05/24/25 14:00 Mechanical Ventilator+ Total Intake and Output 05/23/25 05/23/25 05/24/25 15:00 23:00 07:00 Intake Total 452.5 ml 426.5 ml 660.0 ml Output Total 1000 ml 1475 ml Balance 452.5 ml -573.5 ml -815.0 ml medications Current Medications Medications Dose Ordered Sig/Ankur Route Start Time Stop Time Status Last Admin Dose Admin Gabapentin 300 mg TID PO 05/18/25 06:00 05/24/25 15:00 300 MG Clopidogrel Bisulfate 75 mg DAILY PO 05/18/25 10:00 05/24/25 10:28 75 MG Ondansetron HCl 4 mg Q4HP PRN IV 05/18/25 04:45 Acetaminophen 650 mg Q6HP PRN PO 05/18/25 04:45 05/19/25 21:22 650 MG Nitroglycerin 0.4 mg Q5MINP PRN SL 05/18/25 04:45 Levalbuterol HCl 1.25 mg Q6HR NEB 05/18/25 12:00 05/24/25 11:09 1.25 MG Ipratropium [place] 0.5 mg Q6HR NEB 05/18/25 12:00 05/24/25 11:09 0.5 MG Pantoprazole Sodium 40 mg DAILY IV 05/19/25 10:00 05/24/25 10:27 40 MG Fentanyl Citrate 250 ml @ 2.5 mls/hr Q24H IV 05/19/25 11:30 05/24/25 05:47 15 MLS/HR Midazolam HCl 100 ml @ 1 mls/hr Q24H IV 05/19/25 17:30 05/24/25 16:55 4 MLS/HR Propofol 100 ml @ 2.61 mls/hr Q24H IV 05/19/25 23:15 05/21/25 03:13 5.22 MLS/HR Norepinephrine Bitartrate 250 ml @ 3.75 mls/hr Q24H IV 05/19/25 23:15 05/20/25 23:44 3.75 MLS/HR Nystatin 1 applic BID TOP 05/20/25 10:00 05/24/25 10:29 1 APPLIC Doxycycline Hyclate 100 ml @ 50 mls/hr Q12H IV 05/20/25 10:00 05/24/25 10:27 50 MLS/HR Bumetanide 2 mg BIDD IV 05/20/25 18:00 Cancel Cefepime HCl 50 ml @ 12.5 mls/hr Q12H IV 05/21/25 11:00 05/24/25 12:42 12.5 MLS/HR Enteral Nutritional Formula 1,000 ml 30ML/HR GT 05/21/25 10:30 05/23/25 10:32 1,000 ML Amiodarone HCl 200 mg DAILY PO 05/23/25 10:00 05/23/25 10:30 200 MG Enoxaparin Sodium 90 mg DAILY SC 05/23/25 10:00 05/24/25 10:29 90 MG Atorvastatin Calcium 40 mg HS GT 05/22/25 22:00 05/23/25 21:21 40 MG Diagnostic Test (Pha) 1 strip IQ4HR 05/24/25 00:00 05/24/25 16:24 1 STRIP Insulin Human Regular IQ4HR SC 05/24/25 00:00 05/24/25 16:54 12 UNITS Dextrose 50 ml UD PRN IV 05/23/25 20:15 Insulin Glargine 20 units HS SC 05/24/25 22:00 Dopamine HCl/ Dextrose 250 ml @ 6.33 mls/hr Q24H IV 05/24/25 10:45 05/24/25 12:29 6.33 MLS/HR Micafungin Sodium 100 mg/Sodium Chloride 100 ml @ 100 mls/hr DAILY@0800 IV 05/24/25 15:00 05/24/25 15:21 100 MLS/HR laboratory and microbiology Laboratory Tests 05/24/25 03:01 Test 05/24/25 03:01 Range/Units Serum Glucose 424 *H 74-106 mg/dL Assessment/Plan Impression Acute hypoxemic respiratory failure Pulmonary edema Pneumonia MENDEL Patient seen and examined in ICU Events On mechanical ventilation S/p intubation PEEP 10, FiO2 50% S/p bronchoscopy yesterday Labs and imaging reviewed ABG reviewed Management Vent support Titrate to maintain sats 90% or above Sedation for vent synchrony Continue antibiotics F/u cultures Bronchodilators Diurese Monitor renal function F/u nephrology, management deferred Monitor electrolytes Supplement as needed Pressors as needed for hemodynamic support To maintain a mean arterial pressure of 65 mmHg DVT prophylaxis Critical care time 35 minutes Dietary Evaluation Review Comments: Nutrition Recommendation: 1) EN Glucerna 1.2Cal @ 40ml/hr x 24hr (goal) along with Pro-stat 1 pk TID. TF at goal volume along with Propofol & Pro-stat provide 1589 kcal (100%), 103 gm protein (100%), and 773 ml free water. 2) Consider TPN/PN if NPO>7 days 3) Gordon 1 pk BID for DFU wound healing 4) Monitor NPO status, lab values, weight trend, and I/O Expected Outcomes/Goals: Wound to improve Intake to meet >75% estimated needs Lab values to improve FU 2-3 days Fluid Accumulation (Non Severe: Mild fluid retention Protein Calorie Malnutrition: N/A Is there a minimum of two crit: No Plan discussed with: Other (Rn) KIT RUBIO MD May 24, 2025 17:07
[2025-05-24 20:34] LABS: Urine Amorphous Crystal FEW /hpf (None Seen); Urine Protein, UAD Negative (Negative)
[2025-05-24 20:35] LABS: Protein, Urine 24.7 mg/dL (1-14)
[2025-05-24] MEDS: INSULIN LANTUS (GLARGINE) 1 /0.01ml (100units/ml) SC SCH (21:41)
[2025-05-25] VITALS (114 sets, daily range): BP systolic 111–145; BP diastolic 54–71; PULSE 8–84; RESP 13–23; TEMP 97–99; O2SAT 96–100
[2025-05-25 03:46] LABS: Hematocrit 27.2 % (41.0-53.0); Nucleated Red Blood Cells % 0.1 %
[2025-05-25 03:50] LABS: Hemoglobin 8.9 g/dL (13.5-17.5); Mean Corpuscular Hemoglobin 27.6 pg (28.0-32.0); Mean Corpuscular Volume 84.2 fL (80.0-100.0)
[2025-05-25 03:55] LABS: Anion Gap 11 (5-15); Carbon Dioxide 25 mmol/L (20-31); Potassium 4.0 mmol/L (3.5-5.1)
[2025-05-25 04:01] LABS: BUN/Creatinine Ratio 40.4 (10.0-20.0); Magnesium 2.3 mg/dL (1.6-2.6)
[2025-05-25 04:14] LABS: Calcium 8.5 mg/dL (8.7-10.4); Chloride 110 mmol/L (98-107); Glucose 196 mg/dL (74-106); Sodium 146 mmol/L (136-145)
[2025-05-25 04:15] LABS: Blood Urea Nitrogen 92 mg/dL (9-23)
--- NOTE | 2025-05-25 06:00 | DVH ---
CHEST RADIOGRAPH Indication: INTUBATED Technique: XY CHEST XRAY 1 VIEW COMPARISON: 05/24/2025 FINDINGS: Endotracheal tube tip projects 3.9 cm above aishwarya. Nasogastric tube projects towards stomach. Right IJ catheter tip projects over SVC. Right PICC line tip projects over the SVC. The cardiac silhouette is enlarged. The lungs demonstrate bilateral patchy airspace opacities. The pulmonary vasculature is prominent. Moderate left and small right pleural effusions. There is no pneumothorax. IMPRESSION: As above , overall similar to prior examination.
[2025-05-25 07:01] LABS: Base Excess -0.7 mmol/L (-2.0-3.0)
--- NOTE | 2025-05-25 12:16 | DVHPN2 ---
Progress Note - Dictate Date Seen: May 25, 2025 Medical Necessity Reason Pt with a Central, PICC or Fol: Yes The following are medically ne: Central Line vital signs Vital Sign Date Time Temp Pulse Resp B/P (MAP) Pulse Ox O2 Delivery O2 Flow Rate FiO2 05/25/25 11:46 35 05/25/25 11:45 97.9 67 22 139/65 (89) 97 208.2 05/25/25 11:44 Mechanical Ventilator+ Total Intake and Output 05/24/25 05/24/25 05/25/25 15:00 23:00 07:00 Intake Total 612 ml 908.32 ml 949.64 ml Output Total 950 ml 2000 ml Balance 612 ml -41.68 ml -1050.36 ml medications Current Medications Medications Dose Ordered Sig/Ankur Route Start Time Stop Time Status Last Admin Dose Admin Gabapentin 300 mg TID PO 05/18/25 06:00 05/25/25 11:56 300 MG Clopidogrel Bisulfate 75 mg DAILY PO 05/18/25 10:00 05/25/25 07:49 75 MG Ondansetron HCl 4 mg Q4HP PRN IV 05/18/25 04:45 Acetaminophen 650 mg Q6HP PRN PO 05/18/25 04:45 05/19/25 21:22 650 MG Nitroglycerin 0.4 mg Q5MINP PRN SL 05/18/25 04:45 Levalbuterol HCl 1.25 mg Q6HR NEB 05/18/25 12:00 05/25/25 05:55 1.25 MG Ipratropium [place] 0.5 mg Q6HR NEB 05/18/25 12:00 05/25/25 05:55 0.5 MG Pantoprazole Sodium 40 mg DAILY IV 05/19/25 10:00 05/25/25 07:49 40 MG Fentanyl Citrate 250 ml @ 2.5 mls/hr Q24H IV 05/19/25 11:30 05/25/25 12:04 5 MLS/HR Midazolam HCl 100 ml @ 1 mls/hr Q24H IV 05/19/25 17:30 05/25/25 12:04 4 MLS/HR Propofol 100 ml @ 2.61 mls/hr Q24H IV 05/19/25 23:15 05/21/25 03:13 5.22 MLS/HR Norepinephrine Bitartrate 250 ml @ 3.75 mls/hr Q24H IV 05/19/25 23:15 05/20/25 23:44 3.75 MLS/HR Nystatin 1 applic BID TOP 05/20/25 10:00 05/25/25 07:50 1 APPLIC Doxycycline Hyclate 100 ml @ 50 mls/hr Q12H IV 05/20/25 10:00 05/25/25 08:03 50 MLS/HR Bumetanide 2 mg BIDD IV 05/20/25 18:00 Cancel Cefepime HCl 50 ml @ 12.5 mls/hr Q12H IV 05/21/25 11:00 05/25/25 10:58 12.5 MLS/HR Enteral Nutritional Formula 1,000 ml 30ML/HR GT 05/21/25 10:30 05/24/25 20:16 1,000 ML Amiodarone HCl 200 mg DAILY PO 05/23/25 10:00 05/23/25 10:30 200 MG Enoxaparin Sodium 90 mg DAILY SC 05/23/25 10:00 05/25/25 07:49 90 MG Atorvastatin Calcium 40 mg HS GT 05/22/25 22:00 05/24/25 21:08 40 MG Diagnostic Test (Pha) 1 strip IQ4HR 05/24/25 00:00 05/25/25 10:58 1 STRIP Insulin Human Regular IQ4HR SC 05/24/25 00:00 05/25/25 11:56 2 UNITS Dextrose 50 ml UD PRN IV 05/23/25 20:15 Insulin Glargine 20 units HS SC 05/24/25 22:00 05/24/25 21:41 20 UNITS Dopamine HCl/ Dextrose 250 ml @ 6.33 mls/hr Q24H IV 05/24/25 10:45 05/24/25 12:29 6.33 MLS/HR Micafungin Sodium 100 mg/Sodium Chloride 100 ml @ 100 mls/hr DAILY@0800 IV 05/24/25 15:00 05/25/25 07:50 100 MLS/HR laboratory and microbiology Laboratory Tests 05/25/25 03:00 Test 05/25/25 03:00 Range/Units Serum Glucose 196 #H 74-106 mg/dL Assessment/Plan Impression Acute hypoxemic respiratory failure Pulmonary edema Pneumonia MENDEL Patient seen and examined in ICU Events On mechanical ventilation S/p intubation PEEP 5 FiO2 35% S/p bronchoscopy oxygenation improving Labs and imaging reviewed ABG reviewed Management Vent support Titrate to maintain sats 90% or above Sedation vacation cpap trials and daily weaning ok to use precedex Continue antibiotics F/u cultures Bronchodilators Diurese Monitor renal function F/u nephrology, management deferred Monitor electrolytes Supplement as needed Pressors as needed for hemodynamic support To maintain a mean arterial pressure of 65 mmHg DVT prophylaxis Critical care time 35 minutes Dietary Evaluation Review Comments: Nutrition Recommendation: 1) EN Glucerna 1.2Cal @ 40ml/hr x 24hr (goal) along with Pro-stat 1 pk TID. TF at goal volume along with Propofol & Pro-stat provide 1589 kcal (100%), 103 gm protein (100%), and 773 ml free water. 2) Consider TPN/PN if NPO>7 days 3) Gordon 1 pk BID for DFU wound healing 4) Monitor NPO status, lab values, weight trend, and I/O Expected Outcomes/Goals: Wound to improve Intake to meet >75% estimated needs Lab values to improve FU 2-3 days Fluid Accumulation (Non Severe: Mild fluid retention Protein Calorie Malnutrition: N/A Is there a minimum of two crit: No Plan discussed with: Other (rn) KIT RUBIO MD May 25, 2025 12:16
--- NOTE | 2025-05-25 12:47 | DVHPN2 ---
Progress Note Date Seen: May 25, 2025 Medical Necessity Reason Pt with a Central, PICC or Fol: Yes The following are medically ne: Central Line, Casarez Catheter Reason for casarez catheter: Strict I&O Subjective Review of Systems: Deferred Objective vital signs Vital Sign Date Time Temp Pulse Resp B/P (MAP) Pulse Ox O2 Delivery O2 Flow Rate FiO2 05/25/25 11:46 35 05/25/25 11:45 97.9 67 22 139/65 (89) 97 208.2 05/25/25 11:44 Mechanical Ventilator+ Total Intake and Output 05/24/25 05/24/25 05/25/25 15:00 23:00 07:00 Intake Total 612 ml 908.32 ml 949.64 ml Output Total 950 ml 2000 ml Balance 612 ml -41.68 ml -1050.36 ml medications Current Medications Medications Dose Ordered Sig/Ankur Route Start Time Stop Time Status Last Admin Dose Admin Gabapentin 300 mg TID PO 05/18/25 06:00 05/25/25 11:56 300 MG Clopidogrel Bisulfate 75 mg DAILY PO 05/18/25 10:00 05/25/25 07:49 75 MG Ondansetron HCl 4 mg Q4HP PRN IV 05/18/25 04:45 Acetaminophen 650 mg Q6HP PRN PO 05/18/25 04:45 05/19/25 21:22 650 MG Nitroglycerin 0.4 mg Q5MINP PRN SL 05/18/25 04:45 Levalbuterol HCl 1.25 mg Q6HR NEB 05/18/25 12:00 05/25/25 12:44 1.25 MG Ipratropium [place] 0.5 mg Q6HR NEB 05/18/25 12:00 05/25/25 12:44 0.5 MG Pantoprazole Sodium 40 mg DAILY IV 05/19/25 10:00 05/25/25 07:49 40 MG Fentanyl Citrate 250 ml @ 2.5 mls/hr Q24H IV 05/19/25 11:30 05/25/25 12:04 5 MLS/HR Midazolam HCl 100 ml @ 1 mls/hr Q24H IV 05/19/25 17:30 05/25/25 12:04 4 MLS/HR Propofol 100 ml @ 2.61 mls/hr Q24H IV 05/19/25 23:15 05/21/25 03:13 5.22 MLS/HR Norepinephrine Bitartrate 250 ml @ 3.75 mls/hr Q24H IV 05/19/25 23:15 05/20/25 23:44 3.75 MLS/HR Nystatin 1 applic BID TOP 05/20/25 10:00 05/25/25 07:50 1 APPLIC Doxycycline Hyclate 100 ml @ 50 mls/hr Q12H IV 05/20/25 10:00 05/25/25 08:03 50 MLS/HR Bumetanide 2 mg BIDD IV 05/20/25 18:00 Cancel Cefepime HCl 50 ml @ 12.5 mls/hr Q12H IV 05/21/25 11:00 05/25/25 10:58 12.5 MLS/HR Enteral Nutritional Formula 1,000 ml 30ML/HR GT 05/21/25 10:30 05/24/25 20:16 1,000 ML Amiodarone HCl 200 mg DAILY PO 05/23/25 10:00 05/23/25 10:30 200 MG Enoxaparin Sodium 90 mg DAILY SC 05/23/25 10:00 05/25/25 07:49 90 MG Atorvastatin Calcium 40 mg HS GT 05/22/25 22:00 05/24/25 21:08 40 MG Diagnostic Test (Pha) 1 strip IQ4HR 05/24/25 00:00 05/25/25 10:58 1 STRIP Insulin Human Regular IQ4HR SC 05/24/25 00:00 05/25/25 11:56 2 UNITS Dextrose 50 ml UD PRN IV 05/23/25 20:15 Insulin Glargine 20 units HS SC 05/24/25 22:00 05/24/25 21:41 20 UNITS Dopamine HCl/ Dextrose 250 ml @ 6.33 mls/hr Q24H IV 05/24/25 10:45 05/24/25 12:29 6.33 MLS/HR Micafungin Sodium 100 mg/Sodium Chloride 100 ml @ 100 mls/hr DAILY@0800 IV 05/24/25 15:00 05/25/25 07:50 100 MLS/HR Examination: GENERAL:Abnormal, LUNGS:Abnormal, ABDOMEN:Abnormal, SKIN:Abnormal laboratory and microbiology Laboratory Tests 05/25/25 03:00 Test 05/25/25 03:00 Range/Units Serum Glucose 196 #H 74-106 mg/dL Microbiology Date/Time Source Procedure Growth Status 05/22/25 20:31 Bronchial Washings Gram Stain - Final Resulted 05/22/25 20:31 Bronchial Washings Respiratory Culture - Preliminary Resulted 05/19/25 18:40 Nose MRSA Screen - Final Complete 05/18/25 03:07 Blood Blood Culture - Final NO GROWTH AFTER 5 DAYS OF INCUBATION. Complete Problem List/Assessment/Plan Problem List/Assessment/Plan Acute kidney injury superimposed Chronic Kidney Disease secondary hemodynamic mediated Acute hypoxic respiratory failure, patient intubated on ventilator Pneumonia Septic shock Congestive heart failure exacerbation AFib Diabetes mellitus type 2 Hypoalbuminemia Anemia of chronic kidney disease renal function improving UOP > 2L today without diuretics, will continue to monitor, still mildly edematous tube feeds, add free water Closely monitor fluid and electrolytes Avoid nephrotoxic medications Casarez catheter Strict I&Os Low-dose dopamine , will eval tomorrow. will continue today b/c noted multiple episodes of HR in 50s today IV antibiotics Plan discussed with: Other Dietary Evaluation Review Comments: Nutrition Recommendation: 1) EN Glucerna 1.2Cal @ 40ml/hr x 24hr (goal) along with Pro-stat 1 pk TID. TF at goal volume along with Propofol & Pro-stat provide 1589 kcal (100%), 103 gm protein (100%), and 773 ml free water. 2) Consider TPN/PN if NPO>7 days 3) [place] 1 pk BID for DFU wound healing 4) Monitor NPO status, lab values, weight trend, and I/O Expected Outcomes/Goals: Wound to improve Intake to meet >75% estimated needs Lab values to improve FU 2-3 days Fluid Accumulation (Non Severe: Mild fluid retention Protein Calorie Malnutrition: N/A Is there a minimum of two crit: SILVER Christian MD May 25, 2025 12:47
--- NOTE | 2025-05-25 15:03 | DVHPNRES ---
Progress Note Date Seen: May 25, 2025 Resident Creating Document: WILMAR BOGGS RESIDENT Has the PT tested + for MRSA If YES, has PT been informed?: No Medical Necessity Reason Pt with a Central, PICC or Fol: Yes The following are medically ne: Central Line, Casarez Catheter Reason for casarez catheter: Strict I&O Subjective Review of Systems Patient seen and examined at bedside. Patient is currently on ICU is currently intubated on the following mechanical ventilatory settings: If 22, VT 550, FiO2 35%, peep of five, saturating 97%. Patient is currently sedated on fentanyl and midazolam and is currently only on dopamine 2 mcg/kg per minute. Chest x-ray today was reviewed showing very minimal pleural effusion on the left side but slightly better compared to previous x-rays. Upon my examination there is no lower extremity edema no signs of volume overload at this time. Bilateral lung sounds are grossly clear. Patient is currently on micafungin, cefepime and doxycycline. We will continue current antibiotic therapy at this time. ROS unable to obtain due to patient's current status. Objective vital signs Vital Sign Date Time Temp Pulse Resp B/P (MAP) Pulse Ox O2 Delivery O2 Flow Rate FiO2 05/25/25 14:18 65 22 134/59 (84) 97 35 05/25/25 13:45 98.1 208.6 05/25/25 13:34 Mechanical Ventilator+ Total Intake and Output 05/24/25 05/24/25 05/25/25 15:00 23:00 07:00 Intake Total 612 ml 908.32 ml 949.64 ml Output Total 950 ml 2000 ml Balance 612 ml -41.68 ml -1050.36 ml medications Current Medications Medications Dose Ordered Sig/Ankur Route Start Time Stop Time Status Last Admin Dose Admin Gabapentin 300 mg TID PO 05/18/25 06:00 05/25/25 11:56 300 MG Clopidogrel Bisulfate 75 mg DAILY PO 05/18/25 10:00 05/25/25 07:49 75 MG Ondansetron HCl 4 mg Q4HP PRN IV 05/18/25 04:45 Acetaminophen 650 mg Q6HP PRN PO 05/18/25 04:45 05/19/25 21:22 650 MG Nitroglycerin 0.4 mg Q5MINP PRN SL 05/18/25 04:45 Levalbuterol HCl 1.25 mg Q6HR NEB 05/18/25 12:00 05/25/25 12:44 1.25 MG Ipratropium [place] 0.5 mg Q6HR NEB 05/18/25 12:00 05/25/25 12:44 0.5 MG Pantoprazole Sodium 40 mg DAILY IV 05/19/25 10:00 05/25/25 07:49 40 MG Fentanyl Citrate 250 ml @ 2.5 mls/hr Q24H IV 05/19/25 11:30 05/25/25 12:04 5 MLS/HR Midazolam HCl 100 ml @ 1 mls/hr Q24H IV 05/19/25 17:30 05/25/25 12:04 4 MLS/HR Propofol 100 ml @ 2.61 mls/hr Q24H IV 05/19/25 23:15 05/21/25 03:13 5.22 MLS/HR Norepinephrine Bitartrate 250 ml @ 3.75 mls/hr Q24H IV 05/19/25 23:15 05/20/25 23:44 3.75 MLS/HR Nystatin 1 applic BID TOP 05/20/25 10:00 05/25/25 07:50 1 APPLIC Doxycycline Hyclate 100 ml @ 50 mls/hr Q12H IV 05/20/25 10:00 05/25/25 08:03 50 MLS/HR Bumetanide 2 mg BIDD IV 05/20/25 18:00 Cancel Cefepime HCl 50 ml @ 12.5 mls/hr Q12H IV 05/21/25 11:00 05/25/25 10:58 12.5 MLS/HR Enteral Nutritional Formula 1,000 ml 30ML/HR GT 05/21/25 10:30 05/24/25 20:16 1,000 ML Amiodarone HCl 200 mg DAILY PO 05/23/25 10:00 05/23/25 10:30 200 MG Enoxaparin Sodium 90 mg DAILY SC 05/23/25 10:00 05/25/25 07:49 90 MG Atorvastatin Calcium 40 mg HS GT 05/22/25 22:00 05/24/25 21:08 40 MG Diagnostic Test (Pha) 1 strip IQ4HR 05/24/25 00:00 05/25/25 10:58 1 STRIP Insulin Human Regular IQ4HR SC 05/24/25 00:00 05/25/25 11:56 2 UNITS Dextrose 50 ml UD PRN IV 05/23/25 20:15 Insulin Glargine 20 units HS SC 05/24/25 22:00 05/24/25 21:41 20 UNITS Dopamine HCl/ Dextrose 250 ml @ 6.33 mls/hr Q24H IV 05/24/25 10:45 05/24/25 12:29 6.33 MLS/HR Micafungin Sodium 100 mg/Sodium Chloride 100 ml @ 100 mls/hr DAILY@0800 IV 05/24/25 15:00 05/25/25 07:50 100 MLS/HR Examination Physical Examination General: Patient is sedated and intubated on the following ventilatory settings: VT 550, F 22, FiO2 35, peep five saturating 97%. HEENT: Normocephalic, atraumatic, moist mucous membranes Respiratory/pulmonary: Clear lungs bilaterally, no associated crackles or wheezes. Cardiovascular: Normal heart sounds S1 and S2 with no associated murmurs Abdomen: Abdomen nondistended, there is no pain to palpation in any of the abdominal quadrants, no palpable masses. Extremities: There is no peripheral edema present at the lower extremities. Skin: No rashes or pruritus, there is no sacral edema present at this time. Neurological: RASS -3 laboratory and microbiology Laboratory Tests 05/25/25 03:00 Test 05/25/25 03:00 Range/Units Serum Glucose 196 #H 74-106 mg/dL Microbiology Date/Time Source Procedure Growth Status 05/22/25 20:31 Bronchial Washings Gram Stain - Final Resulted 05/22/25 20:31 Bronchial Washings Respiratory Culture - Preliminary Resulted 05/19/25 18:40 Nose MRSA Screen - Final Complete 05/18/25 03:07 Blood Blood Culture - Final NO GROWTH AFTER 5 DAYS OF INCUBATION. Complete Labs and/or images reviewed: Labs reviewed by me, Image(s) reviewed by me Problem List/Assessment/Plan Problem List/Assessment/Plan Assessment/Plan Acute hypoxic respiratory failure likely due to Gram-positive/negative bacterial pneumonia Acute Multifocal pneumonia Sepsis due to above Acute on chronic diastolic heart failure HFpEF 50% NSTEMI likely type 2 due to above History of paroxysmal AFib Type 2 diabetes mellitus CAD with previous history of CABG MENDEL on CKD stage IIIb Plan -parameter of the mechanical ventilator were decreased, FiO2 was dropped from 50% to 35%, peep also was dropped from eight to five. Patient is currently saturating 97%. -current mechanical ventilatory parameters are VT 550, F22, FiO2 35%, peep five saturating 97%. -today's chest x-ray was reviewed looking slightly better than previous x-rays but still showing small left-sided pleural effusion. -continue cefepime, doxycycline and micafungin at this time. (consider stopping micafungin) -dopamine drip placed by Nephrology -diuretics were hold yesterday -patient is currently on enteral nutrition 30 cc/hour tolerating fine. -Cardiology on board 55 minutes of critical care time Goals of care discussed with the patient's daughter for 20 minutes; full code Plan discussed with Dr. Greenberg. Plan discussed with: Daughter, Other (Nurse) Dietary Evaluation Review Comments: Nutrition Recommendation: 1) EN Glucerna 1.2Cal @ 40ml/hr x 24hr (goal) along with Pro-stat 1 pk TID. TF at goal volume along with Propofol & Pro-stat provide 1589 kcal (100%), 103 gm protein (100%), and 773 ml free water. 2) Consider TPN/PN if NPO>7 days 3) Gordon 1 pk BID for DFU wound healing 4) Monitor NPO status, lab values, weight trend, and I/O Expected Outcomes/Goals: Wound to improve Intake to meet >75% estimated needs Lab values to improve FU 2-3 days Fluid Accumulation (Non Severe: Mild fluid retention Protein Calorie Malnutrition: N/A Is there a minimum of two crit: No Critical Care Time (mins): 55 Date of Service: May 25, 2025 Billing Provider: CLOVER GREENBERG MD Common Visit Codes: 17360-[id number] CARE 30-74 MIN (55 minutes) Secondary Visit Codes: 69132-[id number] CARE PLAN 30 MINUTES (20 minutes) WILMAR BOGGS RESIDENT May 25, 2025 15:03 CLOVER GREENBERG MD May 28, 2025 13:28
[2025-05-25] MEDS ORDERED: CEFEPIME 1GM/50ML 50 ML IV SCH (16:45)
[2025-05-25] MEDS: DEXMEDETOMIDINE HCL IN D5W 100 ML IV SCH (19:00)
[2025-05-26] VITALS (115 sets, daily range): BP systolic 108–170; BP diastolic 57–104; PULSE 62–89; RESP 14–22; TEMP 79.3–99.3; O2SAT 94–100
[2025-05-26 04:23] LABS: Hematocrit 28.8 % (41.0-53.0); Hemoglobin 9.6 g/dL (13.5-17.5); Mean Corpuscular Hemoglobin 27.8 pg (28.0-32.0); Mean Corpuscular Volume 83.5 fL (80.0-100.0); Nucleated Red Blood Cells % 0.1 %
[2025-05-26 04:37] LABS: Chloride 107 mmol/L (98-107); Potassium 4.1 mmol/L (3.5-5.1)
[2025-05-26 04:38] LABS: Anion Gap 12 (5-15); Carbon Dioxide 27 mmol/L (20-31)
[2025-05-26 04:42] LABS: Calcium 8.4 mg/dL (8.7-10.4); Sodium 146 mmol/L (136-145)
[2025-05-26 04:43] LABS: BUN/Creatinine Ratio 41.6 (10.0-20.0)
[2025-05-26 04:44] LABS: Magnesium 2.3 mg/dL (1.6-2.6)
[2025-05-26 04:46] LABS: Blood Urea Nitrogen 72 mg/dL (9-23); Glucose 200 mg/dL (74-106)
--- NOTE | 2025-05-26 04:58 | DVH ---
EXAM: XY CHEST PORTABLE HISTORY: INTUBATED COMPARISON: XY CHEST XRAY 1 VIEW on DOS: 05/25/25, XY CHEST XRAY 1 VIEW on DOS: 05/24/25, XY CHEST PORTABLE on DOS: 05/23/25, XY CHEST PORTABLE on DOS: 05/22/25, XY CHEST XRAY 1 VIEW on DOS: 05/21/25 TECHNIQUE: Portable upright AP view of the chest was performed. FINDINGS: Endotracheal tube is re-identified with its tip 4 cm above the aishwarya. OG tube and right IJ central line are re-identified. There are bilateral lung base infiltrates and effusions obscuring the hemidiaphragms, increased on the right and stable on the left compared with the previous chest x-ray. There is interstitial prominence, greatest centrally, increased. No pneumothorax. The heart is enlarged. There are postoperative changes of median sternotomy. IMPRESSION: 1. Mechanical ventilation with tubes and lines as above. 2. Bilateral lung base infiltrates and effusions are increased on the right and stable on the left compared with the chest x-ray performed 1 day earlier. 3. Cardiomegaly and postoperative changes of the heart with interstitial prominence suggestive of CHF.
[2025-05-26 07:08] LABS: Base Excess 2.2 mmol/L (-2.0-3.0)
--- NOTE | 2025-05-26 09:31 | DVHPN2 ---
Subjective Patient intubated and sedated. Reviewed: Care Plan, H&P, Labs, Medications Changes from previous H/P or p: No Changes General: Per HPI Objective Vitals Vital Signs Date Time Temp Pulse Resp B/P (MAP) Pulse Ox O2 Delivery O2 Flow Rate FiO2 05/26/25 09:15 98.8 65 20 129/64 (85) 98 209.8 05/26/25 07:43 35 05/26/25 07:42 Mechanical Ventilator+ Intake/Output Intake and Output 05/26/25 07:00 Intake Total 1553.380 ml Output Total 5100 ml Balance -3546.620 ml Intake Oral 550 ml IV Total 684.380 ml Tube Feeding 319 ml Output Urine Total 5100 ml General Appearance: mild distress, Other (Intubated and sedated) HEENT: Atraumatic, PERRLA Lungs: Other (Bilateral rhonchi) Cardiovascular: Normal S1, Normal S2, Other (Sinus bradycardia with bundle- branch block) Abdomen: Normal bowel sounds, Soft, No tenderness Genitourinary: No Apparent Abnormalities (Nogueira catheter) Extremities: No edema, Normal pulses Neuro: Other (Unable to assess) Skin: Dry, Intact Psych/Mental Status: Other (Unable to assess) Medications Current Medications Medications Dose Ordered Sig/Ankur Route Start Time Stop Time Status Last Admin Dose Admin Gabapentin 300 mg TID PO 05/18/25 06:00 05/26/25 05:05 300 MG Clopidogrel Bisulfate 75 mg DAILY PO 05/18/25 10:00 05/26/25 07:11 75 MG Ondansetron HCl 4 mg Q4HP PRN IV 05/18/25 04:45 Acetaminophen 650 mg Q6HP PRN PO 05/18/25 04:45 05/19/25 21:22 650 MG Nitroglycerin 0.4 mg Q5MINP PRN SL 05/18/25 04:45 Levalbuterol HCl 1.25 mg Q6HR NEB 05/18/25 12:00 05/26/25 06:03 1.25 MG Ipratropium [place] 0.5 mg Q6HR NEB 05/18/25 12:00 05/26/25 06:03 0.5 MG Pantoprazole Sodium 40 mg DAILY IV 05/19/25 10:00 05/26/25 07:10 40 MG Fentanyl Citrate 250 ml @ 2.5 mls/hr Q24H IV 05/19/25 11:30 05/25/25 12:04 5 MLS/HR Midazolam HCl 100 ml @ 1 mls/hr Q24H IV 05/19/25 17:30 05/26/25 04:58 3 MLS/HR Propofol 100 ml @ 2.61 mls/hr Q24H IV 05/19/25 23:15 05/21/25 03:13 5.22 MLS/HR Norepinephrine Bitartrate 250 ml @ 3.75 mls/hr Q24H IV 05/19/25 23:15 05/20/25 23:44 3.75 MLS/HR Nystatin 1 applic BID TOP 05/20/25 10:00 05/26/25 07:12 1 APPLIC Doxycycline Hyclate 100 ml @ 50 mls/hr Q12H IV 05/20/25 10:00 05/26/25 08:46 50 MLS/HR Bumetanide 2 mg BIDD IV 05/20/25 18:00 Cancel Enteral Nutritional Formula 1,000 ml 30ML/HR GT 05/21/25 10:30 05/24/25 20:16 1,000 ML Amiodarone HCl 200 mg DAILY PO 05/23/25 10:00 05/23/25 10:30 200 MG Enoxaparin Sodium 90 mg DAILY SC 05/23/25 10:00 05/26/25 07:12 90 MG Atorvastatin Calcium 40 mg HS GT 05/22/25 22:00 05/25/25 21:42 40 MG Diagnostic Test (Pha) 1 strip IQ4HR 05/24/25 00:00 05/26/25 07:11 1 STRIP Insulin Human Regular IQ4HR SC 05/24/25 00:00 05/26/25 07:27 3 UNITS Dextrose 50 ml UD PRN IV 05/23/25 20:15 Insulin Glargine 20 units HS SC 05/24/25 22:00 05/25/25 21:58 20 UNITS Dopamine HCl/ Dextrose 250 ml @ 6.33 mls/hr Q24H IV 05/24/25 10:45 05/25/25 16:43 6.33 MLS/HR Micafungin Sodium 100 mg/Sodium Chloride 100 ml @ 100 mls/hr DAILY@0800 IV 05/24/25 15:00 05/26/25 07:11 100 MLS/HR Cefepime HCl 50 ml @ 12.5 mls/hr Q24H IV 05/26/25 11:00 Purified Water 200 ml Q6HR GT 05/26/25 12:00 Laboratory Results Laboratory Tests 05/26/25 03:30 Chemistry Test 05/26/25 03:30 Calcium Level 8.4 mg/dL (8.7-10.4) L Magnesium Level 2.3 mg/dL (1.6-2.6) Urinalysis Test 05/24/25 20:00 Urine Color Colorless (Yellow) Urine Clarity Clear (Clear) Urine pH 5.0 (5.0-9.0) Urine Specific [place] 1.012 (1.001-1.035) Urine Protein Negative (Negative) Urine Ketones Negative (Negative) Urine Blood Negative /uL (Negative) Urine Nitrite Negative (Negative) Urine Bilirubin Negative (Negative) Urine Urobilinogen Normal mg/dL (Negative) Urine Leukocyte Esterase 3+ /uL (Negative) Urine RBC 4 /hpf (0 - 3) Urine Microscopic WBC 61 /HPF (0-3) H Urine Squamous Epithelial Cells Few /hpf (<5) Urine Amorphous Crystals Few /hpf (None Seen) Urine Bacteria Few /hpf (None Seen) H Urine Mucus Few (None Seen) Urine Creatinine 28.69 mg/dL (30.0-125.0) L Urine Protein/Creatinine Ratio 0.86 Urine Sodium 96 mmol/L (40-220) Urine Glucose Normal mg/dL (Normal) Urine Total Protein 24.7 mg/dL (1-14) H Blood Gas Results Test 05/26/25 07:02 Arterial Blood pH 7.518 (7.350-7.450) FiO2 % 35.0 Microbiology Microbiology Date/Time Source Procedure Growth Status 05/22/25 20:31 Bronchial Washings Gram Stain - Final Resulted 05/22/25 20:31 Bronchial Washings Respiratory Culture - Preliminary Resulted 05/19/25 18:40 Nose MRSA Screen - Final Complete 05/18/25 03:07 Blood Blood Culture - Final NO GROWTH AFTER 5 DAYS OF INCUBATION. Complete Labs and/or images reviewed: Labs reviewed by me, Image(s) reviewed by me Assessment/Plan Assessment/Plan Impression: -Acute Hypoxic Respiratory Failure -CAD with previous CABG -DM -Community Acquired PNA, Gram +/ Gram - -? hx of Afib -NSTEMI ? type II -Sepsis -acute on chronic diastolic heart failure Plan: Events: No events overnight. FiO2 down to 35%. Continue with spontaneous breathing Precedex. -antibiotics: Continue antimicrobial -bronchodilators -continue tube feeding, free water -nephrology consultation -anticoagulation per Cardiology -PPI -sputum culture: Fungal growth -Repeat labs, chest x-ray, ABG in a.m. Critical care time spent with patient discussing and formulating plan of care: 40 minutes. This does not include time spent performing procedures. This medical document was created using an electronic medical record system with [employer] dictation system. Although this document has been carefully reviewed, there may still be some phonetic and typographical errors. These areas are purely typographical due to imperfections of the software programs, and do not reflect any compromise in the patient's medical care. Plan discussed with: Patient, Other (RN) My Orders Orders - CRISTIAN BUTT NP Procedure Category Date Status Time Ventilator Orders RT 05/26/25 Transmitted 08:15 Basic Metabolic Panel LAB 05/27/25 Verified 04:00 Chest Portable XY 05/27/25 Verified 04:00 Abg W/ Co-Ox RT 05/27/25 Verified 04:00 Complete Blood Count LAB 05/27/25 Verified 04:00 Date of Service: May 26, 2025 Billing Provider: CRISTIAN BUTT NP Common Visit Codes: [id number] CARE 30-74 MIN CRISTIAN BUTT NP May 26, 2025 09:31
[2025-05-26] MEDS: FREE WATER GT SCH (11:45)
[2025-05-26] MEDS: CEFEPIME 1GM/50ML 50 ML IV SCH (11:55)
--- NOTE | 2025-05-26 15:43 | DVHPN2 ---
Progress Note - Dictate Date Seen: May 26, 2025 Has the PT tested + for MRSA If YES, has PT been informed?: No Medical Necessity Reason Pt with a Central, PICC or Fol: Yes The following are medically ne: Central Line, Casarez Catheter Reason for casarez catheter: Strict I&O vital signs Vital Sign Date Time Temp Pulse Resp B/P (MAP) Pulse Ox O2 Delivery O2 Flow Rate FiO2 05/26/25 15:00 97.0 77 21 160/67 (98) 94 206.6 05/26/25 14:27 30 05/26/25 13:56 Mechanical Ventilator+ Total Intake and Output 05/25/25 05/25/25 05/26/25 15:00 23:00 07:00 Intake Total 322.64 ml 312.64 ml 918.100 ml Output Total 3000 ml 2100 ml Balance 322.64 ml -2687.36 ml -1181.900 ml medications Current Medications Medications Dose Ordered Sig/Ankur Route Start Time Stop Time Status Last Admin Dose Admin Gabapentin 300 mg TID PO 05/18/25 06:00 05/26/25 11:55 300 MG Clopidogrel Bisulfate 75 mg DAILY PO 05/18/25 10:00 05/26/25 07:11 75 MG Ondansetron HCl 4 mg Q4HP PRN IV 05/18/25 04:45 Acetaminophen 650 mg Q6HP PRN PO 05/18/25 04:45 05/19/25 21:22 650 MG Nitroglycerin 0.4 mg Q5MINP PRN SL 05/18/25 04:45 Levalbuterol HCl 1.25 mg Q6HR NEB 05/18/25 12:00 05/26/25 12:56 1.25 MG Ipratropium [place] 0.5 mg Q6HR NEB 05/18/25 12:00 05/26/25 12:56 0.5 MG Pantoprazole Sodium 40 mg DAILY IV 05/19/25 10:00 05/26/25 07:10 40 MG Fentanyl Citrate 250 ml @ 2.5 mls/hr Q24H IV 05/19/25 11:30 05/25/25 12:04 5 MLS/HR Midazolam HCl 100 ml @ 1 mls/hr Q24H IV 05/19/25 17:30 05/26/25 04:58 3 MLS/HR Propofol 100 ml @ 2.61 mls/hr Q24H IV 05/19/25 23:15 05/21/25 03:13 5.22 MLS/HR Norepinephrine Bitartrate 250 ml @ 3.75 mls/hr Q24H IV 05/19/25 23:15 05/20/25 23:44 3.75 MLS/HR Nystatin 1 applic BID TOP 05/20/25 10:00 05/26/25 07:12 1 APPLIC Doxycycline Hyclate 100 ml @ 50 mls/hr Q12H IV 05/20/25 10:00 05/26/25 08:46 50 MLS/HR Bumetanide 2 mg BIDD IV 05/20/25 18:00 Cancel Enteral Nutritional Formula 1,000 ml 30ML/HR GT 05/21/25 10:30 05/24/25 20:16 1,000 ML Amiodarone HCl 200 mg DAILY PO 05/23/25 10:00 05/23/25 10:30 200 MG Enoxaparin Sodium 90 mg DAILY SC 05/23/25 10:00 05/26/25 07:12 90 MG Atorvastatin Calcium 40 mg HS GT 05/22/25 22:00 05/25/25 21:42 40 MG Diagnostic Test (Pha) 1 strip IQ4HR 05/24/25 00:00 05/26/25 11:45 1 STRIP Insulin Human Regular IQ4HR SC 05/24/25 00:00 05/26/25 11:46 3 UNITS Dextrose 50 ml UD PRN IV 05/23/25 20:15 Insulin Glargine 20 units HS SC 05/24/25 22:00 05/25/25 21:58 20 UNITS Dopamine HCl/ Dextrose 250 ml @ 6.33 mls/hr Q24H IV 05/24/25 10:45 05/25/25 16:43 6.33 MLS/HR Micafungin Sodium 100 mg/Sodium Chloride 100 ml @ 100 mls/hr DAILY@0800 IV 05/24/25 15:00 05/26/25 07:11 100 MLS/HR Cefepime HCl 50 ml @ 12.5 mls/hr Q24H IV 05/26/25 11:00 05/26/25 11:55 12.5 MLS/HR Purified Water 200 ml Q6HR GT 05/26/25 12:00 05/26/25 11:45 200 ML laboratory and microbiology Laboratory Tests 05/26/25 03:30 Test 05/26/25 03:30 Range/Units Serum Glucose 200 H 74-106 mg/dL Assessment/Plan Impression Acute hypoxemic respiratory failure Pulmonary edema Pneumonia MENDEL Patient seen and examined in ICU Events On mechanical ventilation S/p intubation PEEP 5 FiO2 35% Off sedation, not awake enough S/p bronchoscopy Labs and imaging reviewed ABG reviewed Management Vent support Titrate to maintain sats 90% or above When patient is more awake, proceed to weaning trial Pressure support 12/31, extubate when ready Continue antibiotics F/u cultures Bronchodilators Diurese Monitor renal function F/u nephrology, management deferred Monitor electrolytes Supplement as needed Pressors as needed for hemodynamic support To maintain a mean arterial pressure of 65 mmHg DVT prophylaxis Critical care time 35 minutes Dietary Evaluation Review Comments: Nutrition Recommendation: 1) EN Glucerna 1.2Cal @ 40ml/hr x 24hr (goal) along with Pro-stat 1 pk TID. TF at goal volume along with Propofol & Pro-stat provide 1589 kcal (100%), 103 gm protein (100%), and 773 ml free water. 2) Consider TPN/PN if NPO>7 days 3) [place] 1 pk BID for DFU wound healing 4) Monitor NPO status, lab values, weight trend, and I/O Expected Outcomes/Goals: Wound to improve Intake to meet >75% estimated needs Lab values to improve FU 2-3 days Fluid Accumulation (Non Severe: Mild fluid retention Protein Calorie Malnutrition: N/A Is there a minimum of two crit: No Plan discussed with: Other (Rn) KIT RUBIO MD May 26, 2025 15:43
--- NOTE | 2025-05-26 16:45 | DVHPN2 ---
Progress Note Date Seen: May 26, 2025 Has the PT tested + for MRSA If YES, has PT been informed?: No Medical Necessity Reason Pt with a Central, PICC or Fol: Yes The following are medically ne: Central Line, Casarez Catheter Reason for casarez catheter: Strict I&O Subjective Changes from previous H/P or p: No Changes Objective vital signs Vital Sign Date Time Temp Pulse Resp B/P (MAP) Pulse Ox O2 Delivery O2 Flow Rate FiO2 05/26/25 16:30 72 20 137/65 (89) 95 05/26/25 16:00 99.0 210.2 05/26/25 15:43 35 05/26/25 15:42 Mechanical Ventilator+ Total Intake and Output 05/25/25 05/25/25 05/26/25 14:59 22:59 06:59 Intake Total 322.64 ml 312.64 ml 922.985 ml Output Total 3000 ml 2100 ml Balance 322.64 ml -2687.36 ml -1177.015 ml medications Current Medications Medications Dose Ordered Sig/Ankur Route Start Time Stop Time Status Last Admin Dose Admin Gabapentin 300 mg TID PO 05/18/25 06:00 05/26/25 11:55 300 MG Clopidogrel Bisulfate 75 mg DAILY PO 05/18/25 10:00 05/26/25 07:11 75 MG Ondansetron HCl 4 mg Q4HP PRN IV 05/18/25 04:45 Acetaminophen 650 mg Q6HP PRN PO 05/18/25 04:45 05/19/25 21:22 650 MG Nitroglycerin 0.4 mg Q5MINP PRN SL 05/18/25 04:45 Levalbuterol HCl 1.25 mg Q6HR NEB 05/18/25 12:00 05/26/25 12:56 1.25 MG Ipratropium [place] 0.5 mg Q6HR NEB 05/18/25 12:00 05/26/25 12:56 0.5 MG Pantoprazole Sodium 40 mg DAILY IV 05/19/25 10:00 05/26/25 07:10 40 MG Fentanyl Citrate 250 ml @ 2.5 mls/hr Q24H IV 05/19/25 11:30 05/25/25 12:04 5 MLS/HR Midazolam HCl 100 ml @ 1 mls/hr Q24H IV 05/19/25 17:30 05/26/25 04:58 3 MLS/HR Propofol 100 ml @ 2.61 mls/hr Q24H IV 05/19/25 23:15 05/21/25 03:13 5.22 MLS/HR Norepinephrine Bitartrate 250 ml @ 3.75 mls/hr Q24H IV 05/19/25 23:15 05/20/25 23:44 3.75 MLS/HR Nystatin 1 applic BID TOP 05/20/25 10:00 05/26/25 07:12 1 APPLIC Doxycycline Hyclate 100 ml @ 50 mls/hr Q12H IV 05/20/25 10:00 05/26/25 08:46 50 MLS/HR Bumetanide 2 mg BIDD IV 05/20/25 18:00 Cancel Enteral Nutritional Formula 1,000 ml 30ML/HR GT 05/21/25 10:30 05/24/25 20:16 1,000 ML Amiodarone HCl 200 mg DAILY PO 05/23/25 10:00 05/23/25 10:30 200 MG Enoxaparin Sodium 90 mg DAILY SC 05/23/25 10:00 05/26/25 07:12 90 MG Atorvastatin Calcium 40 mg HS GT 05/22/25 22:00 05/25/25 21:42 40 MG Diagnostic Test (Pha) 1 strip IQ4HR 05/24/25 00:00 05/26/25 16:19 1 STRIP Insulin Human Regular IQ4HR SC 05/24/25 00:00 05/26/25 11:46 3 UNITS Dextrose 50 ml UD PRN IV 05/23/25 20:15 Insulin Glargine 20 units HS SC 05/24/25 22:00 05/25/25 21:58 20 UNITS Dopamine HCl/ Dextrose 250 ml @ 6.33 mls/hr Q24H IV 05/24/25 10:45 05/25/25 16:43 6.33 MLS/HR Micafungin Sodium 100 mg/Sodium Chloride 100 ml @ 100 mls/hr DAILY@0800 IV 05/24/25 15:00 05/26/25 07:11 100 MLS/HR Cefepime HCl 50 ml @ 12.5 mls/hr Q24H IV 05/26/25 11:00 05/26/25 11:55 12.5 MLS/HR Purified Water 200 ml Q6HR GT 05/26/25 12:00 05/26/25 16:19 200 ML Examination: GENERAL:Abnormal, LUNGS:Abnormal, CVS:Normal laboratory and microbiology Laboratory Tests 05/26/25 03:30 Test 05/26/25 03:30 Range/Units Serum Glucose 200 H 74-106 mg/dL Microbiology Date/Time Source Procedure Growth Status 05/22/25 20:31 Bronchial Washings Gram Stain - Final Complete 05/22/25 20:31 Respiratory Culture - Final Yeast, not [place] albicans Complete 05/19/25 18:40 Nose MRSA Screen - Final Complete 05/18/25 03:07 Blood Blood Culture - Final NO GROWTH AFTER 5 DAYS OF INCUBATION. Complete Problem List/Assessment/Plan Problem List/Assessment/Plan Acute kidney injury superimposed Chronic Kidney Disease secondary hemodynamic mediated Acute hypoxic respiratory failure, patient intubated on ventilator Pneumonia Septic shock Congestive heart failure exacerbation AFib Diabetes mellitus type 2 Hypoalbuminemia Anemia of chronic kidney disease renal function improving Urine output continues to increase without diuretics currently on low-dose dopamine. We will continue to monitoring urinary output tube feeds, add free water Closely monitor fluid and electrolytes Avoid nephrotoxic medications Casarez catheter Strict I&Os IV antibiotics Plan discussed with: Other My Orders My Orders Orders - SILVER BAR MD Procedure Category Date Status Time Free Water PHA 05/26/25 In Process 12:00 Dietary Evaluation Review Comments: Nutrition Recommendation: 1) EN Glucerna 1.2Cal @ 40ml/hr x 24hr (goal) along with Pro-stat 1 pk TID. TF at goal volume along with Propofol & Pro-stat provide 1589 kcal (100%), 103 gm protein (100%), and 773 ml free water. 2) Consider TPN/PN if NPO>7 days 3) [place] 1 pk BID for DFU wound healing 4) Monitor NPO status, lab values, weight trend, and I/O Expected Outcomes/Goals: Wound to improve Intake to meet >75% estimated needs Lab values to improve FU 2-3 days Fluid Accumulation (Non Severe: Mild fluid retention Protein Calorie Malnutrition: N/A Is there a minimum of two crit: SILVER Christian MD May 26, 2025 16:45
[2025-05-27] VITALS (115 sets, daily range): BP systolic 104–180; BP diastolic 56–87; PULSE 55–80; RESP 15–24; TEMP 98.2–100.6; O2SAT 94–100
[2025-05-27 04:23] LABS: Hematocrit 30.5 % (41.0-53.0); Hemoglobin 10.1 g/dL (13.5-17.5); Mean Corpuscular Hemoglobin 27.5 pg (28.0-32.0); Mean Corpuscular Volume 83.1 fL (80.0-100.0); Nucleated Red Blood Cells % 0.0 %
[2025-05-27 04:29] LABS: Chloride 106 mmol/L (98-107); Potassium 4.0 mmol/L (3.5-5.1)
[2025-05-27 04:30] LABS: Calcium 8.5 mg/dL (8.7-10.4); Sodium 145 mmol/L (136-145)
[2025-05-27 04:35] LABS: BUN/Creatinine Ratio 33.1 (10.0-20.0)
[2025-05-27 04:41] LABS: Blood Urea Nitrogen 48 mg/dL (9-23); Glucose 131 mg/dL (74-106)
[2025-05-27 05:25] LABS: Anion Gap 10 (5-15); Carbon Dioxide 29 mmol/L (20-31)
--- NOTE | 2025-05-27 06:20 | DVH ---
CHEST RADIOGRAPH Indication: pna Technique: Single frontal view of the chest was obtained COMPARISON: XY CHEST PORTABLE on DOS: 05/26/25, XY CHEST XRAY 1 VIEW on DOS: 05/25/25, XY CHEST XRAY 1 VIEW on DOS: 05/24/25, XY CHEST PORTABLE on DOS: 05/23/25, XY CHEST PORTABLE on DOS: 05/22/25 FINDINGS: Lines and Tubes: Unchanged. Lungs: Grossly stable appearing small bilateral pleural effusions and Bibasilar pulmonary airspace disease. No pneumothorax. Cardiomediastinal contours: Unremarkable Bones: Unremarkable IMPRESSION: 1. Lines and tubes unchanged. 2. Stable appearing bilateral pleural effusions and bibasilar pulmonary airspace disease.
[2025-05-27 07:07] LABS: Base Excess -0.4 mmol/L (-2.0-3.0)
[2025-05-27] MEDS: ENOXAPARIN SOD 80 MG/0.8ML SYRINGE SC SCH (07:25)
[2025-05-27 10:11] LABS: Base Excess 1.3 mmol/L (-2.0-3.0)
--- NOTE | 2025-05-27 11:32 | DVHPN2 ---
Subjective Decreasing oxygen requirements; discussed the case with the patient's daughter who expressed understanding that the patient is improving slightly but still in critical condition Reviewed: Care Plan, H&P, Labs, Medications, Previous Orders, Radiology, Other (Consultations) Changes from previous H/P or p: Changes Objective Vitals Vital Signs Date Time Temp Pulse Resp B/P (MAP) Pulse Ox O2 Delivery O2 Flow Rate FiO2 05/27/25 09:31 35 05/27/25 09:31 20 96 Mechanical Ventilator+ 05/27/25 09:15 98.6 64 142/67 (92) 209.5 Intake/Output Intake and Output 05/27/25 07:00 Intake Total 1591.430 ml Output Total 4400 ml Balance -2808.570 ml Intake Oral 1000 ml IV Total 591.430 ml Output Urine Total 4400 ml General Appearance: Other (Intubated and sedated) HEENT: Atraumatic, Other (Central line in place) Lungs: Other (Mechanical ventilation sounds with diffuse crackles and scattered wheezing) Cardiovascular: Regular rate, Normal S1, Normal S2 Abdomen: Normal bowel sounds, Soft Genitourinary: Other (Nogueira's) Neuro: Other (Intubated and sedated) Skin: Other (Stage I-II ulcer on the lateral aspect of the 1st metatarsophalangeal joint of the right side; present on admission; no discharge/bleeding) Psych/Mental Status: Other (Intubated and sedated) Medications Current Medications Medications Dose Ordered Sig/Ankur Route Start Time Stop Time Status Last Admin Dose Admin Gabapentin 300 mg TID PO 05/18/25 06:00 05/27/25 05:31 300 MG Clopidogrel Bisulfate 75 mg DAILY PO 05/18/25 10:00 05/27/25 07:25 75 MG Ondansetron HCl 4 mg Q4HP PRN IV 05/18/25 04:45 Acetaminophen 650 mg Q6HP PRN PO 05/18/25 04:45 05/27/25 00:38 650 MG Nitroglycerin 0.4 mg Q5MINP PRN SL 05/18/25 04:45 Levalbuterol HCl 1.25 mg Q6HR NEB 05/18/25 12:00 05/27/25 06:00 1.25 MG Ipratropium [place] 0.5 mg Q6HR NEB 05/18/25 12:00 05/27/25 06:00 0.5 MG Pantoprazole Sodium 40 mg DAILY IV 05/19/25 10:00 05/27/25 07:25 40 MG Fentanyl Citrate 250 ml @ 2.5 mls/hr Q24H IV 05/19/25 11:30 05/25/25 12:04 5 MLS/HR Midazolam HCl 100 ml @ 1 mls/hr Q24H IV 05/19/25 17:30 05/26/25 04:58 3 MLS/HR Propofol 100 ml @ 2.61 mls/hr Q24H IV 05/19/25 23:15 05/21/25 03:13 5.22 MLS/HR Norepinephrine Bitartrate 250 ml @ 3.75 mls/hr Q24H IV 05/19/25 23:15 05/20/25 23:44 3.75 MLS/HR Nystatin 1 applic BID TOP 05/20/25 10:00 05/27/25 07:41 1 APPLIC Doxycycline Hyclate 100 ml @ 50 mls/hr Q12H IV 05/20/25 10:00 05/27/25 08:39 50 MLS/HR Bumetanide 2 mg BIDD IV 05/20/25 18:00 Cancel Enteral Nutritional Formula 1,000 ml 30ML/HR GT 05/21/25 10:30 05/24/25 20:16 1,000 ML Amiodarone HCl 200 mg DAILY PO 05/23/25 10:00 05/27/25 07:25 200 MG Atorvastatin Calcium 40 mg HS GT 05/22/25 22:00 05/26/25 21:30 40 MG Diagnostic Test (Pha) 1 strip IQ4HR 05/24/25 00:00 05/27/25 07:25 1 STRIP Insulin Human Regular IQ4HR SC 05/24/25 00:00 05/26/25 23:53 2 UNITS Dextrose 50 ml UD PRN IV 05/23/25 20:15 Insulin Glargine 20 units HS SC 05/24/25 22:00 05/26/25 21:31 20 UNITS Dopamine HCl/ Dextrose 250 ml @ 6.33 mls/hr Q24H IV 05/24/25 10:45 05/27/25 03:56 6.33 MLS/HR Micafungin Sodium 100 mg/Sodium Chloride 100 ml @ 100 mls/hr DAILY@0800 IV 05/24/25 15:00 05/27/25 07:25 100 MLS/HR Cefepime HCl 50 ml @ 12.5 mls/hr Q24H IV 05/26/25 11:00 05/26/25 11:55 12.5 MLS/HR Purified Water 200 ml Q6HR GT 05/26/25 12:00 05/27/25 05:31 200 ML Enoxaparin Sodium 80 mg DAILY SC 05/27/25 10:00 05/27/25 07:25 80 MG Laboratory Results Laboratory Tests 05/27/25 03:36 Chemistry Test 05/27/25 03:36 Calcium Level 8.5 mg/dL (8.7-10.4) L Urinalysis Test 05/24/25 20:00 Urine Color Colorless (Yellow) Urine Clarity Clear (Clear) Urine pH 5.0 (5.0-9.0) Urine Specific [place] 1.012 (1.001-1.035) Urine Protein Negative (Negative) Urine Ketones Negative (Negative) Urine Blood Negative /uL (Negative) Urine Nitrite Negative (Negative) Urine Bilirubin Negative (Negative) Urine Urobilinogen Normal mg/dL (Negative) Urine Leukocyte Esterase 3+ /uL (Negative) Urine RBC 4 /hpf (0 - 3) Urine Microscopic WBC 61 /HPF (0-3) H Urine Squamous Epithelial Cells Few /hpf (<5) Urine Amorphous Crystals Few /hpf (None Seen) Urine Bacteria Few /hpf (None Seen) H Urine Mucus Few (None Seen) Urine Creatinine 28.69 mg/dL (30.0-125.0) L Urine Protein/Creatinine Ratio 0.86 Urine Sodium 96 mmol/L (40-220) Urine Glucose Normal mg/dL (Normal) Urine Total Protein 24.7 mg/dL (1-14) H Blood Gas Results Test 05/27/25 06:58 05/27/25 10:05 Arterial Blood pH 7.500 (7.350-7.450) 7.473 (7.350-7.450) FiO2 % 30.0 30.0 Microbiology Microbiology Date/Time Source Procedure Growth Status 05/22/25 20:31 Bronchial Washings Gram Stain - Final Complete 05/22/25 20:31 Respiratory Culture - Final Yeast, not [place] albicans Complete 05/19/25 18:40 Nose MRSA Screen - Final Complete 05/18/25 03:07 Blood Blood Culture - Final NO GROWTH AFTER 5 DAYS OF INCUBATION. Complete Labs and/or images reviewed: Labs reviewed by me, Image(s) reviewed by me Assessment/Plan Assessment/Plan Covering Manjinder Wu NP: Acute hypoxic/metabolic/toxic encephalopathy MENDEL on CKD; most likely vasomotor nephropathy NSTEMI likely type II secondary to above CAD s/p triple-vessel CABG on 01/16/2025 (on ASA) Questionable history of atrial fibrillation (on Eliquis and Amiodarone) PAD status post [employer] to right peroneal artery Acute on chronic HFpEF, NYHA class III Acute hypoxic respiratory failure due to multifocal pneumonia Multifocal pneumonia Septic shock due to multifocal pneumonia Acute on chronic diastolic heart failure Hypoalbuminemia Right foot diabetic ulcer Uncontrolled diabetes mellitus type 2 Dyslipidemia History of stroke without residual deficits Pulmonary hypertension Obesity Reviewed available work including ABGs and cultures Reviewed the available imaging studies including chest x-rays Continue IV antibiotics Continue oxygen therapy via mechanical ventilation as per pulmonology Cardiology and pulmonology are following Avoid nephrotoxic agents Wound care Continue DVT prophylaxis along with GI prophylaxis Continue close monitoring Goals of care discussed with the patient's daughter for 20 minutes; full code Critical care time of 60 minutes Late Entry. This medical document was created using an electronic medical record system with computerized dictation system. Although this document has been carefully reviewed, there might still be some phonetic and typographical errors. These areas are purely typographical due to imperfections of the software programs, and do not reflect any compromise in the patient's medical care. Plan discussed with: Daughter, Other (Nurse) Date of Service: May 27, 2025 Billing Provider: CLOVER GREENBERG MD Common Visit Codes: [id number] CARE 30-74 MIN (60 minutes) Secondary Visit Codes: [id number] CARE PLAN 30 MINUTES (20 minutes) CLOVER GREENBERG MD May 27, 2025 11:32
--- NOTE | 2025-05-27 11:54 | DVHPN2 ---
Progress Note - Dictate Date Seen: May 27, 2025 Has the PT tested + for MRSA If YES, has PT been informed?: No Medical Necessity Reason Pt with a Central, PICC or Fol: Yes The following are medically ne: Central Line, Casarez Catheter Reason for casarez catheter: Strict I&O vital signs Vital Sign Date Time Temp Pulse Resp B/P (MAP) Pulse Ox O2 Delivery O2 Flow Rate FiO2 05/27/25 11:39 62 20 138/64 (88) 99 30 05/27/25 09:31 Mechanical Ventilator+ 05/27/25 09:15 98.6 209.5 Total Intake and Output 05/26/25 05/26/25 05/27/25 15:00 23:00 07:00 Intake Total 302.698 ml 678.560 ml 610.172 ml Output Total 1750 ml 2650 ml Balance 302.698 ml -1071.440 ml -2039.828 ml medications Current Medications Medications Dose Ordered Sig/Ankur Route Start Time Stop Time Status Last Admin Dose Admin Gabapentin 300 mg TID PO 05/18/25 06:00 05/27/25 05:31 300 MG Clopidogrel Bisulfate 75 mg DAILY PO 05/18/25 10:00 05/27/25 07:25 75 MG Ondansetron HCl 4 mg Q4HP PRN IV 05/18/25 04:45 Acetaminophen 650 mg Q6HP PRN PO 05/18/25 04:45 05/27/25 00:38 650 MG Nitroglycerin 0.4 mg Q5MINP PRN SL 05/18/25 04:45 Levalbuterol HCl 1.25 mg Q6HR NEB 05/18/25 12:00 05/27/25 11:38 1.25 MG Ipratropium [place] 0.5 mg Q6HR NEB 05/18/25 12:00 05/27/25 11:38 0.5 MG Pantoprazole Sodium 40 mg DAILY IV 05/19/25 10:00 05/27/25 07:25 40 MG Fentanyl Citrate 250 ml @ 2.5 mls/hr Q24H IV 05/19/25 11:30 05/25/25 12:04 5 MLS/HR Midazolam HCl 100 ml @ 1 mls/hr Q24H IV 05/19/25 17:30 05/26/25 04:58 3 MLS/HR Propofol 100 ml @ 2.61 mls/hr Q24H IV 05/19/25 23:15 05/21/25 03:13 5.22 MLS/HR Norepinephrine Bitartrate 250 ml @ 3.75 mls/hr Q24H IV 05/19/25 23:15 05/20/25 23:44 3.75 MLS/HR Nystatin 1 applic BID TOP 05/20/25 10:00 05/27/25 07:41 1 APPLIC Doxycycline Hyclate 100 ml @ 50 mls/hr Q12H IV 05/20/25 10:00 05/27/25 08:39 50 MLS/HR Bumetanide 2 mg BIDD IV 05/20/25 18:00 Cancel Enteral Nutritional Formula 1,000 ml 30ML/HR GT 05/21/25 10:30 05/24/25 20:16 1,000 ML Amiodarone HCl 200 mg DAILY PO 05/23/25 10:00 05/27/25 07:25 200 MG Atorvastatin Calcium 40 mg HS GT 05/22/25 22:00 05/26/25 21:30 40 MG Diagnostic Test (Pha) 1 strip IQ4HR 05/24/25 00:00 05/27/25 07:25 1 STRIP Insulin Human Regular IQ4HR SC 05/24/25 00:00 05/26/25 23:53 2 UNITS Dextrose 50 ml UD PRN IV 05/23/25 20:15 Insulin Glargine 20 units HS SC 05/24/25 22:00 05/26/25 21:31 20 UNITS Dopamine HCl/ Dextrose 250 ml @ 6.33 mls/hr Q24H IV 05/24/25 10:45 05/27/25 03:56 6.33 MLS/HR Micafungin Sodium 100 mg/Sodium Chloride 100 ml @ 100 mls/hr DAILY@0800 IV 05/24/25 15:00 05/27/25 07:25 100 MLS/HR Cefepime HCl 50 ml @ 12.5 mls/hr Q24H IV 05/26/25 11:00 05/26/25 11:55 12.5 MLS/HR Purified Water 200 ml Q6HR GT 05/26/25 12:00 05/27/25 05:31 200 ML Enoxaparin Sodium 80 mg DAILY SC 05/27/25 10:00 05/27/25 07:25 80 MG laboratory and microbiology Laboratory Tests 05/27/25 03:36 Test 05/27/25 03:36 Range/Units Serum Glucose 131 H 74-106 mg/dL Assessment/Plan Impression Acute hypoxemic respiratory failure Pulmonary edema Pneumonia MENDEL Patient seen and examined in ICU Events On mechanical ventilation S/p intubation PEEP 5 FiO2 35% Off sedation, not awake enough tolerating PS 8/5 low dose precedex for cough and agitation S/p bronchoscopy Labs and imaging reviewed ABG reviewed Management Vent support Titrate to maintain sats 90% or above When patient is more awake, proceed to weaning trial Pressure support 12/31, extubate when ready Continue antibiotics F/u cultures Bronchodilators Diurese Monitor renal function F/u nephrology, management deferred Monitor electrolytes Supplement as needed Pressors as needed for hemodynamic support To maintain a mean arterial pressure of 65 mmHg DVT prophylaxis Critical care time 35 minutes Dietary Evaluation Review Comments: Nutrition Recommendation: 1) EN Glucerna 1.2Cal @ 40ml/hr x 24hr (goal) along with Pro-stat 1 pk TID. TF at goal volume along with Propofol & Pro-stat provide 1589 kcal (100%), 103 gm protein (100%), and 773 ml free water. 2) Consider TPN/PN if NPO>7 days 3) Gordon 1 pk BID for DFU wound healing 4) Monitor NPO status, lab values, weight trend, and I/O Expected Outcomes/Goals: Wound to improve Intake to meet >75% estimated needs Lab values to improve FU 2-3 days Fluid Accumulation (Non Severe: Mild fluid retention Protein Calorie Malnutrition: N/A Is there a minimum of two crit: No Plan discussed with: Other (rn) KIT RUBIO MD May 27, 2025 11:54
--- NOTE | 2025-05-27 12:31 | DVHPN2 ---
Progress Note Date Seen: May 27, 2025 Has the PT tested + for MRSA If YES, has PT been informed?: No Medical Necessity Reason Pt with a Central, PICC or Fol: Yes The following are medically ne: Central Line, Casarez Catheter Reason for casarez catheter: Strict I&O Subjective Review of Systems: Deferred Objective vital signs Vital Sign Date Time Temp Pulse Resp B/P (MAP) Pulse Ox O2 Delivery O2 Flow Rate FiO2 05/27/25 11:39 62 20 138/64 (88) 99 30 05/27/25 09:31 Mechanical Ventilator+ 05/27/25 09:15 98.6 209.5 Total Intake and Output 05/26/25 05/26/25 05/27/25 15:00 23:00 07:00 Intake Total 302.698 ml 678.560 ml 610.172 ml Output Total 1750 ml 2650 ml Balance 302.698 ml -1071.440 ml -2039.828 ml medications Current Medications Medications Dose Ordered Sig/Ankur Route Start Time Stop Time Status Last Admin Dose Admin Gabapentin 300 mg TID PO 05/18/25 06:00 05/27/25 12:18 300 MG Clopidogrel Bisulfate 75 mg DAILY PO 05/18/25 10:00 05/27/25 07:25 75 MG Ondansetron HCl 4 mg Q4HP PRN IV 05/18/25 04:45 Acetaminophen 650 mg Q6HP PRN PO 05/18/25 04:45 05/27/25 00:38 650 MG Nitroglycerin 0.4 mg Q5MINP PRN SL 05/18/25 04:45 Levalbuterol HCl 1.25 mg Q6HR NEB 05/18/25 12:00 05/27/25 11:38 1.25 MG Ipratropium [place] 0.5 mg Q6HR NEB 05/18/25 12:00 05/27/25 11:38 0.5 MG Pantoprazole Sodium 40 mg DAILY IV 05/19/25 10:00 05/27/25 07:25 40 MG Fentanyl Citrate 250 ml @ 2.5 mls/hr Q24H IV 05/19/25 11:30 05/25/25 12:04 5 MLS/HR Midazolam HCl 100 ml @ 1 mls/hr Q24H IV 05/19/25 17:30 05/26/25 04:58 3 MLS/HR Propofol 100 ml @ 2.61 mls/hr Q24H IV 05/19/25 23:15 05/21/25 03:13 5.22 MLS/HR Norepinephrine Bitartrate 250 ml @ 3.75 mls/hr Q24H IV 05/19/25 23:15 05/20/25 23:44 3.75 MLS/HR Nystatin 1 applic BID TOP 05/20/25 10:00 05/27/25 07:41 1 APPLIC Doxycycline Hyclate 100 ml @ 50 mls/hr Q12H IV 05/20/25 10:00 05/27/25 08:39 50 MLS/HR Bumetanide 2 mg BIDD IV 05/20/25 18:00 Cancel Enteral Nutritional Formula 1,000 ml 30ML/HR GT 05/21/25 10:30 05/24/25 20:16 1,000 ML Amiodarone HCl 200 mg DAILY PO 05/23/25 10:00 05/27/25 07:25 200 MG Atorvastatin Calcium 40 mg HS GT 05/22/25 22:00 05/26/25 21:30 40 MG Diagnostic Test (Pha) 1 strip IQ4HR 05/24/25 00:00 05/27/25 12:18 1 STRIP Insulin Human Regular IQ4HR SC 05/24/25 00:00 05/27/25 12:26 6 UNITS Dextrose 50 ml UD PRN IV 05/23/25 20:15 Insulin Glargine 20 units HS SC 05/24/25 22:00 05/26/25 21:31 20 UNITS Dopamine HCl/ Dextrose 250 ml @ 6.33 mls/hr Q24H IV 05/24/25 10:45 05/27/25 03:56 6.33 MLS/HR Micafungin Sodium 100 mg/Sodium Chloride 100 ml @ 100 mls/hr DAILY@0800 IV 05/24/25 15:00 05/27/25 07:25 100 MLS/HR Cefepime HCl 50 ml @ 12.5 mls/hr Q24H IV 05/26/25 11:00 05/27/25 12:18 12.5 MLS/HR Purified Water 200 ml Q6HR GT 05/26/25 12:00 05/27/25 12:18 200 ML Enoxaparin Sodium 80 mg DAILY SC 05/27/25 10:00 05/27/25 07:25 80 MG Examination: GENERAL:Abnormal, LUNGS:Abnormal, ABDOMEN:Normal, SKIN:Abnormal laboratory and microbiology Laboratory Tests 05/27/25 03:36 Test 05/27/25 03:36 Range/Units Serum Glucose 131 H 74-106 mg/dL Microbiology Date/Time Source Procedure Growth Status 05/22/25 20:31 Bronchial Washings Gram Stain - Final Complete 05/22/25 20:31 Respiratory Culture - Final Yeast, not [place] albicans Complete 05/19/25 18:40 Nose MRSA Screen - Final Complete 05/18/25 03:07 Blood Blood Culture - Final NO GROWTH AFTER 5 DAYS OF INCUBATION. Complete Problem List/Assessment/Plan Problem List/Assessment/Plan Acute kidney injury superimposed Chronic Kidney Disease secondary hemodynamic mediated Acute hypoxic respiratory failure, patient intubated on ventilator Pneumonia Septic shock Congestive heart failure exacerbation AFib Diabetes mellitus type 2 Hypoalbuminemia Anemia of chronic kidney disease renal function improving cristine resolving dc dopamine today, lasix IVP tube feeds, add free water Closely monitor fluid and electrolytes Avoid nephrotoxic medications Casarez catheter Strict I&Os IV antibiotics Plan discussed with: Other Dietary Evaluation Review Comments: Nutrition Recommendation: 1) EN Glucerna 1.2Cal @ 40ml/hr x 24hr (goal) along with Pro-stat 1 pk TID. TF at goal volume along with Propofol & Pro-stat provide 1589 kcal (100%), 103 gm protein (100%), and 773 ml free water. 2) Consider TPN/PN if NPO>7 days 3) Gordon 1 pk BID for DFU wound healing 4) Monitor NPO status, lab values, weight trend, and I/O Expected Outcomes/Goals: Wound to improve Intake to meet >75% estimated needs Lab values to improve FU 2-3 days Fluid Accumulation (Non Severe: Mild fluid retention Protein Calorie Malnutrition: N/A Is there a minimum of two crit: SILVER Christian MD May 27, 2025 12:31
[2025-05-27] MEDS: FUROSEMIDE 40 MG/4 ML VIAL IV ONE (15:10)
[2025-05-27] MEDS: FUROSEMIDE 40 MG/4 ML VIAL ONE (15:11)
[2025-05-28] VITALS (107 sets, daily range): BP systolic 101–191; BP diastolic 51–131; PULSE 54–112; RESP 12–22; TEMP 96.3–99.7; O2SAT 94–100
[2025-05-28 04:36] LABS: Hematocrit 30.0 % (41.0-53.0); Hemoglobin 9.9 g/dL (13.5-17.5); Mean Corpuscular Hemoglobin 27.7 pg (28.0-32.0); Mean Corpuscular Volume 83.6 fL (80.0-100.0); Nucleated Red Blood Cells % 0.0 %
[2025-05-28 04:54] LABS: Alanine Aminotransferase 40 U/L (7-40); Albumin 3.3 g/dL (3.2-4.8); Alkaline Phosphatase 95 U/L (46-116); Anion Gap 12 (5-15); BUN/Creatinine Ratio 31.0 (10.0-20.0); Bilirubin, Total 0.4 mg/dL (0.2-1.0); Carbon Dioxide 28 mmol/L (20-31); Chloride 106 mmol/L (98-107); Magnesium 2.4 mg/dL (1.6-2.6); Potassium 3.7 mmol/L (3.5-5.1)
[2025-05-28 05:01] LABS: Blood Urea Nitrogen 45 mg/dL (9-23); Calcium 8.6 mg/dL (8.7-10.4); Glucose 126 mg/dL (74-106); Sodium 146 mmol/L (136-145); Total Protein 5.5 g/dL (5.7-8.2)
[2025-05-28] MEDS: hydrALAZINE HCL 20 MG/ML VL IV PRN (05:59)
[2025-05-28 08:02] LABS: Base Excess -0.2 mmol/L (-2.0-3.0)
--- NOTE | 2025-05-28 08:08 | DVH ---
CHEST RADIOGRAPH Indication: Intubated. Thank You! Technique: Single frontal view of the chest was obtained COMPARISON: XY CHEST PORTABLE on DOS: 05/27/25, XY CHEST PORTABLE on DOS: 05/26/25, XY CHEST XRAY 1 VIEW on DOS: 05/25/25, XY CHEST XRAY 1 VIEW on DOS: 05/24/25, XY CHEST PORTABLE on DOS: 05/23/25 FINDINGS: Lines and Tubes: Endotracheal tube, enteric catheter and right central venous catheter in satisfactory position. Lungs: Unchanged congestion. Pleura: Trace left pleural effusion. No pneumothorax. Cardiomediastinal contours: Unchanged cardiomegaly. Median sternotomy. Bones: Unremarkable IMPRESSION: Unchanged pulmonary edema. Lines and tubes in satisfactory position.
--- NOTE | 2025-05-28 09:05 | DVH ---
Date: 05/28/2025 08:17 AM Examination: XY KUB ABDOMEN SINGLE VIEW History: CONSTIPATION Comparison: None TECHNIQUE: Frontal views of the abdomen was obtained. FINDINGS: Limited study with upper abdomen out of [id number]. Overall nonspecific paucity of bowel gas. Large stool ball in the rectum. Limited evaluation of free air on this supine view. Nogueira catheter in place. IMPRESSION: Limited study with upper abdomen out of [id number]. Overall nonspecific paucity of bowel gas. Large stool ball in the rectum.
--- NOTE | 2025-05-28 11:38 | DVHPN2 ---
Progress Note Date Seen: May 28, 2025 Has the PT tested + for MRSA If YES, has PT been informed?: No Medical Necessity Reason Pt with a Central, PICC or Fol: Yes The following are medically ne: Central Line, Casarez Catheter Reason for casarez catheter: Strict I&O Subjective Review of Systems: Deferred Objective vital signs Vital Sign Date Time Temp Pulse Resp B/P (MAP) Pulse Ox O2 Delivery O2 Flow Rate FiO2 05/28/25 10:16 66 13 128/65 (86) 97 30 05/28/25 10:00 Mechanical Ventilator+ 05/28/25 09:45 99.1 210.4 Total Intake and Output 05/27/25 05/27/25 05/28/25 15:00 23:00 07:00 Intake Total 349.476 ml 671.884 ml 623.498 ml Output Total 1700 ml 1040 ml Balance 349.476 ml -1028.116 ml -416.502 ml medications Current Medications Medications Dose Ordered Sig/Ankur Route Start Time Stop Time Status Last Admin Dose Admin Gabapentin 300 mg TID PO 05/18/25 06:00 05/28/25 05:41 300 MG Clopidogrel Bisulfate 75 mg DAILY PO 05/18/25 10:00 05/28/25 09:33 75 MG Ondansetron HCl 4 mg Q4HP PRN IV 05/18/25 04:45 Acetaminophen 650 mg Q6HP PRN PO 05/18/25 04:45 05/27/25 00:38 650 MG Nitroglycerin 0.4 mg Q5MINP PRN SL 05/18/25 04:45 Levalbuterol HCl 1.25 mg Q6HR NEB 05/18/25 12:00 05/28/25 06:28 1.25 MG Ipratropium [place] 0.5 mg Q6HR NEB 05/18/25 12:00 05/28/25 06:28 0.5 MG Pantoprazole Sodium 40 mg DAILY IV 05/19/25 10:00 05/28/25 09:33 40 MG Fentanyl Citrate 250 ml @ 2.5 mls/hr Q24H IV 05/19/25 11:30 05/27/25 20:32 7.5 MLS/HR Midazolam HCl 100 ml @ 1 mls/hr Q24H IV 05/19/25 17:30 05/26/25 04:58 3 MLS/HR Propofol 100 ml @ 2.61 mls/hr Q24H IV 05/19/25 23:15 05/21/25 03:13 5.22 MLS/HR Norepinephrine Bitartrate 250 ml @ 3.75 mls/hr Q24H IV 05/19/25 23:15 05/20/25 23:44 3.75 MLS/HR Nystatin 1 applic BID TOP 05/20/25 10:00 05/28/25 09:34 1 APPLIC Doxycycline Hyclate 100 ml @ 50 mls/hr Q12H IV 05/20/25 10:00 05/28/25 09:31 50 MLS/HR Bumetanide 2 mg BIDD IV 05/20/25 18:00 Cancel Enteral Nutritional Formula 1,000 ml 30ML/HR GT 05/21/25 10:30 05/24/25 20:16 1,000 ML Amiodarone HCl 200 mg DAILY PO 05/23/25 10:00 05/28/25 09:33 200 MG Atorvastatin Calcium 40 mg HS GT 05/22/25 22:00 05/27/25 22:33 40 MG Diagnostic Test (Pha) 1 strip IQ4HR 05/24/25 00:00 05/28/25 11:19 1 STRIP Insulin Human Regular IQ4HR SC 05/24/25 00:00 05/28/25 11:18 2 UNITS Dextrose 50 ml UD PRN IV 05/23/25 20:15 Insulin Glargine 20 units HS SC 05/24/25 22:00 05/27/25 22:00 20 UNITS Micafungin Sodium 100 mg/Sodium Chloride 100 ml @ 100 mls/hr DAILY@0800 IV 05/24/25 15:00 05/28/25 07:52 100 MLS/HR Cefepime HCl 50 ml @ 12.5 mls/hr Q24H IV 05/26/25 11:00 05/28/25 11:03 12.5 MLS/HR Purified Water 200 ml Q6HR GT 05/26/25 12:00 05/28/25 11:19 200 ML Enoxaparin Sodium 80 mg DAILY SC 05/27/25 10:00 05/28/25 09:33 80 MG Lactulose 30 ml Q6HR PO 05/28/25 22:00 05/28/25 05:58 30 ML Hydralazine HCl 10 mg Q6HR PRN IV 05/28/25 06:00 05/28/25 05:59 10 MG Amlodipine Besylate 10 mg DAILY PO 05/28/25 10:00 05/28/25 09:33 10 MG Examination: GENERAL:Abnormal, LUNGS:Abnormal, SKIN:Normal laboratory and microbiology Laboratory Tests 05/28/25 04:00 Test 05/28/25 04:00 Range/Units Serum Glucose 126 H 74-106 mg/dL Microbiology Date/Time Source Procedure Growth Status 05/22/25 20:31 Bronchial Washings Gram Stain - Final Complete 05/22/25 20:31 Respiratory Culture - Final Yeast, not [place] albicans Complete 05/19/25 18:40 Nose MRSA Screen - Final Complete 05/18/25 03:07 Blood Blood Culture - Final NO GROWTH AFTER 5 DAYS OF INCUBATION. Complete Problem List/Assessment/Plan Problem List/Assessment/Plan Acute kidney injury superimposed Chronic Kidney Disease secondary hemodynamic mediated Acute hypoxic respiratory failure, patient intubated on ventilator Pneumonia Septic shock Congestive heart failure exacerbation AFib Diabetes mellitus type 2 Hypoalbuminemia Anemia of chronic kidney disease renal function improving tube feeds, add free water Closely monitor fluid and electrolytes Avoid nephrotoxic medications Casarez catheter Strict I&Os IV antibiotics Stable from renal standpoint we will sign off the case Plan discussed with: Other Dietary Evaluation Review Comments: Nutrition Recommendation: 1) EN Glucerna 1.2Cal @ 40ml/hr x 24hr (goal) along with Pro-stat 1 pk TID. TF at goal volume along with Propofol & Pro-stat provide 1589 kcal (100%), 103 gm protein (100%), and 773 ml free water. 2) Consider TPN/PN if NPO>7 days 3) Gordon 1 pk BID for DFU wound healing 4) Monitor NPO status, lab values, weight trend, and I/O Expected Outcomes/Goals: Wound to improve Intake to meet >75% estimated needs Lab values to improve FU 2-3 days Fluid Accumulation (Non Severe: Mild fluid retention Protein Calorie Malnutrition: N/A Is there a minimum of two crit: SILVER Christian MD May 28, 2025 11:38
[2025-05-28] MEDS: LACTULOSE 20Gm/30ML SOLN PO SCH ×2 (11:42)
--- NOTE | 2025-05-28 13:35 | DVHPN2 ---
Subjective Minimal oxygen requirements; will try CPAP trial this morning so off sedation Reviewed: Care Plan, H&P, Labs, Medications, Previous Orders, Radiology, Other (Consultations) Changes from previous H/P or p: Changes Objective Vitals Vital Signs Date Time Temp Pulse Resp B/P (MAP) Pulse Ox O2 Delivery O2 Flow Rate FiO2 05/28/25 12:20 77 20 144/75 (98) 98 30 05/28/25 12:00 98.6 209.5 05/28/25 12:00 Mechanical Ventilator+ Intake/Output Intake and Output 05/28/25 07:00 Intake Total 1644.858 ml Output Total 2740 ml Balance -1095.142 ml Intake Oral 500 ml IV Total 684.858 ml Other 460 ml Output Urine Total 2695 ml Gastric Drainage Total 45 ml General Appearance: Other (Intubated and sedated) HEENT: Atraumatic, Other (Central line in place) Lungs: Other (Mechanical ventilation sounds with diffuse crackles and scattered wheezing) Cardiovascular: Regular rate, Normal S1, Normal S2 Abdomen: Normal bowel sounds, Soft Genitourinary: Other (Nogueira's) Neuro: Other (Intubated and sedated) Skin: Other (Stage I-II ulcer on the lateral aspect of the 1st metatarsophalangeal joint of the right side; present on admission; no discharge/bleeding) Psych/Mental Status: Other (Intubated and sedated) Medications Current Medications Medications Dose Ordered Sig/Ankur Route Start Time Stop Time Status Last Admin Dose Admin Gabapentin 300 mg TID PO 05/18/25 06:00 05/28/25 05:41 300 MG Clopidogrel Bisulfate 75 mg DAILY PO 05/18/25 10:00 05/28/25 09:33 75 MG Ondansetron HCl 4 mg Q4HP PRN IV 05/18/25 04:45 Acetaminophen 650 mg Q6HP PRN PO 05/18/25 04:45 05/27/25 00:38 650 MG Nitroglycerin 0.4 mg Q5MINP PRN SL 05/18/25 04:45 Levalbuterol HCl 1.25 mg Q6HR NEB 05/18/25 12:00 05/28/25 12:19 1.25 MG Ipratropium [place] 0.5 mg Q6HR NEB 05/18/25 12:00 05/28/25 12:19 0.5 MG Pantoprazole Sodium 40 mg DAILY IV 05/19/25 10:00 05/28/25 09:33 40 MG Fentanyl Citrate 250 ml @ 2.5 mls/hr Q24H IV 05/19/25 11:30 05/27/25 20:32 7.5 MLS/HR Midazolam HCl 100 ml @ 1 mls/hr Q24H IV 05/19/25 17:30 05/26/25 04:58 3 MLS/HR Propofol 100 ml @ 2.61 mls/hr Q24H IV 05/19/25 23:15 05/21/25 03:13 5.22 MLS/HR Norepinephrine Bitartrate 250 ml @ 3.75 mls/hr Q24H IV 05/19/25 23:15 05/20/25 23:44 3.75 MLS/HR Nystatin 1 applic BID TOP 05/20/25 10:00 05/28/25 09:34 1 APPLIC Doxycycline Hyclate 100 ml @ 50 mls/hr Q12H IV 05/20/25 10:00 05/28/25 09:31 50 MLS/HR Bumetanide 2 mg BIDD IV 05/20/25 18:00 Cancel Enteral Nutritional Formula 1,000 ml 30ML/HR GT 05/21/25 10:30 05/24/25 20:16 1,000 ML Amiodarone HCl 200 mg DAILY PO 05/23/25 10:00 05/28/25 09:33 200 MG Atorvastatin Calcium 40 mg HS GT 05/22/25 22:00 05/27/25 22:33 40 MG Diagnostic Test (Pha) 1 strip IQ4HR 05/24/25 00:00 05/28/25 11:19 1 STRIP Insulin Human Regular IQ4HR SC 05/24/25 00:00 05/28/25 11:18 2 UNITS Dextrose 50 ml UD PRN IV 05/23/25 20:15 Insulin Glargine 20 units HS SC 05/24/25 22:00 05/27/25 22:00 20 UNITS Micafungin Sodium 100 mg/Sodium Chloride 100 ml @ 100 mls/hr DAILY@0800 IV 05/24/25 15:00 05/28/25 07:52 100 MLS/HR Purified Water 200 ml Q6HR GT 05/26/25 12:00 05/28/25 11:19 200 ML Enoxaparin Sodium 80 mg DAILY SC 05/27/25 10:00 05/28/25 09:33 80 MG Hydralazine HCl 10 mg Q6HR PRN IV 05/28/25 06:00 05/28/25 05:59 10 MG Amlodipine Besylate 10 mg DAILY PO 05/28/25 10:00 05/28/25 09:33 10 MG Lactulose 30 ml Q6HR PO 05/28/25 12:00 05/28/25 11:42 30 ML Cefepime HCl 50 ml @ 12.5 mls/hr Q12H IV 05/28/25 23:00 Laboratory Results Laboratory Tests 05/28/25 04:00 Chemistry Test 05/28/25 04:00 Albumin 3.3 g/dL (3.2-4.8) Calcium Level 8.6 mg/dL (8.7-10.4) L Magnesium Level 2.4 mg/dL (1.6-2.6) Total Protein 5.5 g/dL (5.7-8.2) L LFT Test 05/28/25 04:00 Alanine Aminotransferase (ALT) 40 U/L (7-40) Alkaline Phosphatase 95 U/L (46-116) Aspartate Amino Transferase (AST) 25 U/L (13-40) Total Bilirubin 0.4 mg/dL (0.2-1.0) Urinalysis Test 05/24/25 20:00 Urine Color Colorless (Yellow) Urine Clarity Clear (Clear) Urine pH 5.0 (5.0-9.0) Urine Specific [place] 1.012 (1.001-1.035) Urine Protein Negative (Negative) Urine Ketones Negative (Negative) Urine Blood Negative /uL (Negative) Urine Nitrite Negative (Negative) Urine Bilirubin Negative (Negative) Urine Urobilinogen Normal mg/dL (Negative) Urine Leukocyte Esterase 3+ /uL (Negative) Urine RBC 4 /hpf (0 - 3) Urine Microscopic WBC 61 /HPF (0-3) H Urine Squamous Epithelial Cells Few /hpf (<5) Urine Amorphous Crystals Few /hpf (None Seen) Urine Bacteria Few /hpf (None Seen) H Urine Mucus Few (None Seen) Urine Creatinine 28.69 mg/dL (30.0-125.0) L Urine Protein/Creatinine Ratio 0.86 Urine Sodium 96 mmol/L (40-220) Urine Glucose Normal mg/dL (Normal) Urine Total Protein 24.7 mg/dL (1-14) H Blood Gas Results Test 05/28/25 07:38 Arterial Blood pH 7.510 (7.350-7.450) FiO2 % 30.0 Microbiology Microbiology Date/Time Source Procedure Growth Status 05/22/25 20:31 Bronchial Washings Gram Stain - Final Complete 05/22/25 20:31 Respiratory Culture - Final Yeast, not Carolina albicans Complete 05/19/25 18:40 Nose MRSA Screen - Final Complete 05/18/25 03:07 Blood Blood Culture - Final NO GROWTH AFTER 5 DAYS OF INCUBATION. Complete Labs and/or images reviewed: Labs reviewed by me, Image(s) reviewed by me Assessment/Plan Assessment/Plan Covering Manjinder Wu NP: Acute hypoxic/metabolic/toxic encephalopathy MENDEL on CKD; most likely vasomotor nephropathy NSTEMI likely type II secondary to above CAD s/p triple-vessel CABG on 01/16/2025 (on ASA) Questionable history of atrial fibrillation (on Eliquis and Amiodarone) PAD status post CAGER OPERATOR to right peroneal artery Acute on chronic HFpEF, NYHA class III Acute hypoxic respiratory failure due to multifocal pneumonia Multifocal pneumonia Septic shock due to multifocal pneumonia Acute on chronic diastolic heart failure Hypoalbuminemia Right foot diabetic ulcer Uncontrolled diabetes mellitus type 2 Dyslipidemia History of stroke without residual deficits Hypertensive kidney and heart disease with diastolic heart failure Pulmonary hypertension Obesity CPAP trial this morning Reviewed available work including ABGs and cultures Reviewed the available imaging studies including chest x-rays Continue IV antibiotics Continue oxygen therapy via mechanical ventilation as per pulmonology Cardiology, Nephrology, and pulmonology are following Avoid nephrotoxic agents Wound care Continue DVT prophylaxis along with GI prophylaxis Continue antihypertensive medications and adjust according to blood pressure monitoring Continue insulin therapy and adjust according to blood glucose monitoring Continue close monitoring Critical care time of 45 minutes This medical document was created using an electronic medical record system with computerized dictation system. Although this document has been carefully reviewed, there might still be some phonetic and typographical errors. These areas are purely typographical due to imperfections of the software programs, and do not reflect any compromise in the patient's medical care. Plan discussed with: Daughter, Other (Nurse) My Orders Orders - CLOVER GREENBERG MD Procedure Category Date Status Time Kub Abdomen Single XY 11/30/25 Resulted View 08:00 Tap Water Enema ORDERS 05/28/25 Transmitted 09:44 Lactulose Oral PHA 05/28/25 In Process 12:00 Complete Blood Count LAB 05/29/25 Verified 04:00 Comprehensive LAB 05/29/25 Verified Metabolic Panel 04:00 Chest Xray 1 View XY 05/29/25 Logged 04:00 Abg W/ Co-Ox RT 05/29/25 Logged 06:00 Date of Service: May 28, 2025 Billing Provider: CLOVER GREENBERG MD Common Visit Codes: [id number] CARE 30-74 MIN (45 minutes) CLOVER GREENBERG MD May 28, 2025 13:35
--- NOTE | 2025-05-28 15:28 | DVHPN2 ---
Progress Note - Dictate Date Seen: May 28, 2025 Has the PT tested + for MRSA If YES, has PT been informed?: No Medical Necessity Reason Pt with a Central, PICC or Fol: Yes The following are medically ne: Central Line, Casarez Catheter Reason for casarez catheter: Strict I&O vital signs Vital Sign Date Time Temp Pulse Resp B/P (MAP) Pulse Ox O2 Delivery O2 Flow Rate FiO2 05/28/25 14:39 64 20 135/63 (87) 98 30 05/28/25 14:30 99.0 210.2 05/28/25 14:00 Mechanical Ventilator+ Total Intake and Output 05/27/25 05/27/25 05/28/25 14:59 22:59 06:59 Intake Total 333.747 ml 634.384 ml 671.441 ml Output Total 1700 ml 1040 ml Balance 333.747 ml -1065.616 ml -368.559 ml medications Current Medications Medications Dose Ordered Sig/Ankur Route Start Time Stop Time Status Last Admin Dose Admin Gabapentin 300 mg TID PO 05/18/25 06:00 05/28/25 14:15 300 MG Clopidogrel Bisulfate 75 mg DAILY PO 05/18/25 10:00 05/28/25 09:33 75 MG Ondansetron HCl 4 mg Q4HP PRN IV 05/18/25 04:45 Acetaminophen 650 mg Q6HP PRN PO 05/18/25 04:45 05/27/25 00:38 650 MG Nitroglycerin 0.4 mg Q5MINP PRN SL 05/18/25 04:45 Levalbuterol HCl 1.25 mg Q6HR NEB 05/18/25 12:00 05/28/25 12:19 1.25 MG Ipratropium [place] 0.5 mg Q6HR NEB 05/18/25 12:00 05/28/25 12:19 0.5 MG Pantoprazole Sodium 40 mg DAILY IV 05/19/25 10:00 05/28/25 09:33 40 MG Fentanyl Citrate 250 ml @ 2.5 mls/hr Q24H IV 05/19/25 11:30 05/27/25 20:32 7.5 MLS/HR Midazolam HCl 100 ml @ 1 mls/hr Q24H IV 05/19/25 17:30 05/26/25 04:58 3 MLS/HR Propofol 100 ml @ 2.61 mls/hr Q24H IV 05/19/25 23:15 05/21/25 03:13 5.22 MLS/HR Norepinephrine Bitartrate 250 ml @ 3.75 mls/hr Q24H IV 05/19/25 23:15 05/20/25 23:44 3.75 MLS/HR Nystatin 1 applic BID TOP 05/20/25 10:00 05/28/25 09:34 1 APPLIC Doxycycline Hyclate 100 ml @ 50 mls/hr Q12H IV 05/20/25 10:00 05/28/25 09:31 50 MLS/HR Bumetanide 2 mg BIDD IV 05/20/25 18:00 Cancel Enteral Nutritional Formula 1,000 ml 30ML/HR GT 05/21/25 10:30 05/24/25 20:16 1,000 ML Amiodarone HCl 200 mg DAILY PO 05/23/25 10:00 05/28/25 09:33 200 MG Atorvastatin Calcium 40 mg HS GT 05/22/25 22:00 05/27/25 22:33 40 MG Diagnostic Test (Pha) 1 strip IQ4HR 05/24/25 00:00 05/28/25 11:19 1 STRIP Insulin Human Regular IQ4HR SC 05/24/25 00:00 05/28/25 11:18 2 UNITS Dextrose 50 ml UD PRN IV 05/23/25 20:15 Insulin Glargine 20 units HS SC 05/24/25 22:00 05/27/25 22:00 20 UNITS Micafungin Sodium 100 mg/Sodium Chloride 100 ml @ 100 mls/hr DAILY@0800 IV 05/24/25 15:00 05/28/25 07:52 100 MLS/HR Purified Water 200 ml Q6HR GT 05/26/25 12:00 05/28/25 11:19 200 ML Enoxaparin Sodium 80 mg DAILY SC 05/27/25 10:00 05/28/25 09:33 80 MG Hydralazine HCl 10 mg Q6HR PRN IV 05/28/25 06:00 05/28/25 05:59 10 MG Amlodipine Besylate 10 mg DAILY PO 05/28/25 10:00 05/28/25 09:33 10 MG Lactulose 30 ml Q6HR PO 05/28/25 12:00 05/28/25 11:42 30 ML Cefepime HCl 50 ml @ 12.5 mls/hr Q12H IV 05/28/25 23:00 laboratory and microbiology Laboratory Tests 05/28/25 04:00 Test 05/28/25 04:00 Range/Units Serum Glucose 126 H 74-106 mg/dL Assessment/Plan Impression Acute hypoxemic respiratory failure Pulmonary edema Pneumonia MENDEL Patient seen and examined in ICU Events On mechanical ventilation S/p intubation PEEP 5 FiO2 35% Off sedation, not awake enough S/p bronchoscopy Labs and imaging reviewed ABG reviewed Management Vent support Titrate to maintain sats 90% or above When patient is more awake, proceed to weaning trial Pressure support 12/31, extubate when ready Continue antibiotics F/u cultures Bronchodilators Diurese Monitor renal function F/u nephrology, management deferred Monitor electrolytes Supplement as needed Pressors as needed for hemodynamic support To maintain a mean arterial pressure of 65 mmHg DVT prophylaxis Critical care time 35 minutes Dietary Evaluation Review Comments: Nutrition Recommendation: 1) EN Glucerna 1.2Cal @ 40ml/hr x 24hr (goal) along with Pro-stat 1 pk TID. TF at goal volume along with Propofol & Pro-stat provide 1589 kcal (100%), 103 gm protein (100%), and 773 ml free water. 2) Consider TPN/PN if NPO>7 days 3) Gordon 1 pk BID for DFU wound healing 4) Monitor NPO status, lab values, weight trend, and I/O Expected Outcomes/Goals: Wound to improve Intake to meet >75% estimated needs Lab values to improve FU 2-3 days Fluid Accumulation (Non Severe: Mild fluid retention Protein Calorie Malnutrition: N/A Is there a minimum of two crit: No Plan discussed with: Other (Rn) KIT RUBIO MD May 28, 2025 15:28
[2025-05-28] MEDS: ENOXAPARIN SOD 80 MG/0.8ML SYRINGE SC SCH (21:22)
[2025-05-28] MEDS: CEFEPIME 1GM/50ML 50 ML IV SCH (23:15)
[2025-05-29] VITALS (81 sets, daily range): BP systolic 81–193; BP diastolic 42–90; PULSE 58–98; RESP 12–22; TEMP 98.2–98.7; O2SAT 92–100
[2025-05-29 04:06] LABS: Hematocrit 29.2 % (41.0-53.0); Hemoglobin 9.4 g/dL (13.5-17.5); Mean Corpuscular Hemoglobin 27.0 pg (28.0-32.0); Mean Corpuscular Volume 83.5 fL (80.0-100.0); Nucleated Red Blood Cells % 0.0 %
[2025-05-29 04:22] LABS: Alanine Aminotransferase 38 U/L (7-40); Albumin 3.4 g/dL (3.2-4.8); Alkaline Phosphatase 92 U/L (46-116); Anion Gap 12 (5-15); BUN/Creatinine Ratio 26.4 (10.0-20.0); Carbon Dioxide 25 mmol/L (20-31); Total Protein 5.8 g/dL (5.7-8.2)
[2025-05-29 04:23] LABS: Bilirubin, Total 0.4 mg/dL (0.2-1.0); Blood Urea Nitrogen 37 mg/dL (9-23); Calcium 8.5 mg/dL (8.7-10.4); Chloride 109 mmol/L (98-107); Glucose 152 mg/dL (74-106); Potassium 3.3 mmol/L (3.5-5.1); Sodium 146 mmol/L (136-145)
--- NOTE | 2025-05-29 04:26 | DVH ---
CHEST RADIOGRAPH Indication: Intubated. Thank You! Technique: Single frontal view of the chest was obtained COMPARISON: XY CHEST XRAY 1 VIEW on DOS: 05/28/25, XY CHEST PORTABLE on DOS: 05/27/25, XY CHEST PORTABLE on DOS: 05/26/25, XY CHEST XRAY 1 VIEW on DOS: 05/25/25, XY CHEST XRAY 1 VIEW on DOS: 05/24/25 FINDINGS: Lines and Tubes: Interval advancement of the endotracheal tube such that the tip now projects approximately 2.3 cm above the level of the aishwarya. Remaining lines and tubes unchanged. Lungs: Stable appearing small Left pleural effusion and moderate diffuse increased prominence of the pulmonary vasculature. No pneumothorax. Cardiomediastinal contours: Unremarkable status post median sternotomy. Bones: Unremarkable IMPRESSION: 1. Interval advancement of the endotracheal tube such that the tip now projects approximately 2.3 cm above the level of the aishwarya. Remaining lines and tubes unchanged. 2. Stable small Left pleural effusion and moderate diffuse increased prominence of the pulmonary vasculature.
[2025-05-29] MEDS: POTASSIUM CHL 20MEQ/100ML 100 ML IV ONE (05:29)
[2025-05-29] MEDS: hydrALAZINE HCL 20 MG/ML VL ONE (08:00)
[2025-05-29] MEDS: LACTULOSE 20Gm/30ML SOLN ONE ×2 (08:00)
--- NOTE | 2025-05-29 09:28 | DVHPN2 ---
Subjective Patient intubated and sedated. Reviewed: Care Plan, H&P, Labs, Medications, Previous Orders, Radiology, Other (Consultations) Changes from previous H/P or p: No Changes General: Per HPI Objective Vitals Vital Signs Date Time Temp Pulse Resp B/P (MAP) Pulse Ox O2 Delivery O2 Flow Rate FiO2 05/29/25 08:24 76 22 137/59 (85) 98 30 05/29/25 08:00 Mechanical Ventilator+ 05/29/25 00:30 98.2 98.2 Intake/Output Intake and Output 05/29/25 07:00 Intake Total 1433.089 ml Output Total 1725 ml Balance -291.911 ml Intake Oral 800 ml IV Total 488.089 ml Tube Feeding 145 ml Output Urine Total 1725 ml # Bowel Movements 2 General Appearance: Other (Intubated and sedated) HEENT: Atraumatic, PERRLA, Other (Central line in place) Lungs: Other (Mechanical ventilation. Bilateral rhonchi) Cardiovascular: Regular rate, Normal S1, Normal S2 Abdomen: Normal bowel sounds, Soft Genitourinary: Other (Nogueira's) Musculoskeletal: Normal sensory function, Normal motor function Neuro: Other (Intubated and sedated) Skin: Dry, Intact, Other (Stage I-II ulcer on the lateral aspect of the 1st metatarsophalangeal joint of the right side; present on admission; no discharge/bleeding) Psych/Mental Status: Other (Intubated and sedated) Medications Current Medications Medications Dose Ordered Sig/Ankur Route Start Time Stop Time Status Last Admin Dose Admin Gabapentin 300 mg TID PO 05/18/25 06:00 05/29/25 04:56 300 MG Clopidogrel Bisulfate 75 mg DAILY PO 05/18/25 10:00 05/28/25 09:33 75 MG Ondansetron HCl 4 mg Q4HP PRN IV 05/18/25 04:45 Acetaminophen 650 mg Q6HP PRN PO 05/18/25 04:45 05/27/25 00:38 650 MG Nitroglycerin 0.4 mg Q5MINP PRN SL 05/18/25 04:45 Levalbuterol HCl 1.25 mg Q6HR NEB 05/18/25 12:00 05/29/25 06:12 1.25 MG Ipratropium [place] 0.5 mg Q6HR NEB 05/18/25 12:00 05/29/25 06:12 0.5 MG Pantoprazole Sodium 40 mg DAILY IV 05/19/25 10:00 05/28/25 09:33 40 MG Fentanyl Citrate 250 ml @ 2.5 mls/hr Q24H IV 05/19/25 11:30 05/29/25 05:16 2.5 MLS/HR Midazolam HCl 100 ml @ 1 mls/hr Q24H IV 05/19/25 17:30 05/26/25 04:58 3 MLS/HR Propofol 100 ml @ 2.61 mls/hr Q24H IV 05/19/25 23:15 05/21/25 03:13 5.22 MLS/HR Norepinephrine Bitartrate 250 ml @ 3.75 mls/hr Q24H IV 05/19/25 23:15 05/20/25 23:44 3.75 MLS/HR Nystatin 1 applic BID TOP 05/20/25 10:00 05/28/25 21:23 1 APPLIC Doxycycline Hyclate 100 ml @ 50 mls/hr Q12H IV 05/20/25 10:00 05/28/25 21:22 50 MLS/HR Bumetanide 2 mg BIDD IV 05/20/25 18:00 Cancel Enteral Nutritional Formula 1,000 ml 30ML/HR GT 05/21/25 10:30 05/24/25 20:16 1,000 ML Amiodarone HCl 200 mg DAILY PO 05/23/25 10:00 05/28/25 09:33 200 MG Atorvastatin Calcium 40 mg HS GT 05/22/25 22:00 05/28/25 21:22 40 MG Diagnostic Test (Pha) 1 strip IQ4HR 05/24/25 00:00 05/29/25 08:00 1 STRIP Insulin Human Regular IQ4HR SC 05/24/25 00:00 05/29/25 08:17 2 UNITS Dextrose 50 ml UD PRN IV 05/23/25 20:15 Insulin Glargine 20 units HS SC 05/24/25 22:00 05/27/25 22:00 20 UNITS Micafungin Sodium 100 mg/Sodium Chloride 100 ml @ 100 mls/hr DAILY@0800 IV 05/24/25 15:00 05/29/25 08:12 100 MLS/HR Purified Water 200 ml Q6HR GT 05/26/25 12:00 05/29/25 04:56 200 ML Hydralazine HCl 10 mg Q6HR PRN IV 05/28/25 06:00 05/28/25 21:23 10 MG Amlodipine Besylate 10 mg DAILY PO 05/28/25 10:00 05/28/25 09:33 10 MG Lactulose 30 ml Q6HR PO 05/28/25 12:00 05/28/25 17:50 30 ML Cefepime HCl 50 ml @ 12.5 mls/hr Q12H IV 05/28/25 23:00 05/28/25 23:15 12.5 MLS/HR Enoxaparin Sodium 80 mg BID SC 05/28/25 22:00 05/28/25 21:22 80 MG Laboratory Results Laboratory Tests 05/29/25 03:40 Chemistry Test 05/29/25 03:40 Albumin 3.4 g/dL (3.2-4.8) Calcium Level 8.5 mg/dL (8.7-10.4) L Total Protein 5.8 g/dL (5.7-8.2) LFT Test 05/29/25 03:40 Alanine Aminotransferase (ALT) 38 U/L (7-40) Alkaline Phosphatase 92 U/L (46-116) Aspartate Amino Transferase (AST) 29 U/L (13-40) Total Bilirubin 0.4 mg/dL (0.2-1.0) Urinalysis Test 05/24/25 20:00 Urine Color Colorless (Yellow) Urine Clarity Clear (Clear) Urine pH 5.0 (5.0-9.0) Urine Specific [place] 1.012 (1.001-1.035) Urine Protein Negative (Negative) Urine Ketones Negative (Negative) Urine Blood Negative /uL (Negative) Urine Nitrite Negative (Negative) Urine Bilirubin Negative (Negative) Urine Urobilinogen Normal mg/dL (Negative) Urine Leukocyte Esterase 3+ /uL (Negative) Urine RBC 4 /hpf (0 - 3) Urine Microscopic WBC 61 /HPF (0-3) H Urine Squamous Epithelial Cells Few /hpf (<5) Urine Amorphous Crystals Few /hpf (None Seen) Urine Bacteria Few /hpf (None Seen) H Urine Mucus Few (None Seen) Urine Creatinine 28.69 mg/dL (30.0-125.0) L Urine Protein/Creatinine Ratio 0.86 Urine Sodium 96 mmol/L (40-220) Urine Glucose Normal mg/dL (Normal) Urine Total Protein 24.7 mg/dL (1-14) H Blood Gas Results Test 05/29/25 06:55 FiO2 % 30.0 Microbiology Microbiology Date/Time Source Procedure Growth Status 05/22/25 20:31 Bronchial Washings Gram Stain - Final Complete 05/22/25 20:31 Respiratory Culture - Final Yeast, not [place] albicans Complete 05/19/25 18:40 Nose MRSA Screen - Final Complete 05/18/25 03:07 Blood Blood Culture - Final NO GROWTH AFTER 5 DAYS OF INCUBATION. Complete Labs and/or images reviewed: Labs reviewed by me, Image(s) reviewed by me Assessment/Plan Assessment/Plan Impression: -Acute Hypoxic Respiratory Failure -CAD with previous CABG -DM -Community Acquired PNA, Gram +/ Gram - -? hx of Afib -NSTEMI ? type II -Sepsis -acute on chronic diastolic heart failure Plan: Events: No events overnight. Patient with hypokalemia, currently being repleted. Chest x-ray reviewed. Proceed with spontaneous breathing trial this a.m.. IV diuresis -antibiotics: Continue cefepime and micafungin -bronchodilators -continue tube feeding, free water -nephrology consultation -anticoagulation per Cardiology -PPI -Repeat labs, chest x-ray, ABG in a.m. Critical care time spent with patient discussing and formulating plan of care: 40 minutes. This does not include time spent performing procedures. This medical document was created using an electronic medical record system with [employer] dictation system. Although this document has been carefully reviewed, there may still be some phonetic and typographical errors. These areas are purely typographical due to imperfections of the software programs, and do not reflect any compromise in the patient's medical care. Plan discussed with: Patient, Other (RN) My Orders Orders - CRISTIAN BUTT [employer] SULF[employer] OPERATOR Procedure Category Date Status Time Ventilator Orders RT 05/28/25 Transmitted 17:25 Cpap Trial For Am ORDERS 05/29/25 Verified 09:23 Cpap/Sed Vacation Med ORDERS 05/29/25 Verified Weaning 09:23 Basic Metabolic Panel LAB 05/30/25 Verified 04:00 Chest Portable XY 05/30/25 Verified 04:00 Complete Blood Count LAB 05/30/25 Verified 04:00 Date of Service: May 29, 2025 Billing Provider: CRISTIAN BUTT NP Common Visit Codes: [id number] CARE 30-74 MIN CRISTIAN BUTT NP May 29, 2025 09:28
--- NOTE | 2025-05-29 11:28 | DVHPN2 ---
Progress Note Date Seen: May 29, 2025 Has the PT tested + for MRSA If YES, has PT been informed?: No Medical Necessity Reason Pt with a Central, PICC or Fol: Yes The following are medically ne: Central Line, Casarez Catheter Reason for casarez catheter: Strict I&O Subjective Review of Systems: RESPIRATORY:Abnormal Other Systems: Patient seen and examined by myself today in follow-up, patient remained intubated on ventilator Objective vital signs Vital Sign Date Time Temp Pulse Resp B/P (MAP) Pulse Ox O2 Delivery O2 Flow Rate FiO2 05/29/25 10:07 70 13 95/49 (64) 100 30 05/29/25 08:00 98.6 98.6 05/29/25 08:00 Mechanical Ventilator+ Total Intake and Output 05/28/25 05/28/25 05/29/25 15:00 23:00 07:00 Intake Total 292.169 ml 633.498 ml 513.595 ml Output Total 875 ml 850 ml Balance 292.169 ml -241.502 ml -336.405 ml medications Current Medications Medications Dose Ordered Sig/Ankur Route Start Time Stop Time Status Last Admin Dose Admin Gabapentin 300 mg TID PO 05/18/25 06:00 05/29/25 04:56 300 MG Clopidogrel Bisulfate 75 mg DAILY PO 05/18/25 10:00 05/29/25 09:54 75 MG Ondansetron HCl 4 mg Q4HP PRN IV 05/18/25 04:45 Acetaminophen 650 mg Q6HP PRN PO 05/18/25 04:45 05/27/25 00:38 650 MG Nitroglycerin 0.4 mg Q5MINP PRN SL 05/18/25 04:45 Levalbuterol HCl 1.25 mg Q6HR NEB 05/18/25 12:00 05/29/25 06:12 1.25 MG Ipratropium [place] 0.5 mg Q6HR NEB 05/18/25 12:00 05/29/25 06:12 0.5 MG Pantoprazole Sodium 40 mg DAILY IV 05/19/25 10:00 05/29/25 09:49 40 MG Fentanyl Citrate 250 ml @ 2.5 mls/hr Q24H IV 05/19/25 11:30 05/29/25 05:16 2.5 MLS/HR Midazolam HCl 100 ml @ 1 mls/hr Q24H IV 05/19/25 17:30 05/26/25 04:58 3 MLS/HR Propofol 100 ml @ 2.61 mls/hr Q24H IV 05/19/25 23:15 05/21/25 03:13 5.22 MLS/HR Norepinephrine Bitartrate 250 ml @ 3.75 mls/hr Q24H IV 05/19/25 23:15 05/20/25 23:44 3.75 MLS/HR Nystatin 1 applic BID TOP 05/20/25 10:00 05/29/25 09:53 1 APPLIC Doxycycline Hyclate 100 ml @ 50 mls/hr Q12H IV 05/20/25 10:00 05/29/25 09:49 50 MLS/HR Bumetanide 2 mg BIDD IV 05/20/25 18:00 Cancel Enteral Nutritional Formula 1,000 ml 30ML/HR GT 05/21/25 10:30 05/24/25 20:16 1,000 ML Amiodarone HCl 200 mg DAILY PO 05/23/25 10:00 05/29/25 09:50 200 MG Atorvastatin Calcium 40 mg HS GT 05/22/25 22:00 05/28/25 21:22 40 MG Diagnostic Test (Pha) 1 strip IQ4HR 05/24/25 00:00 05/29/25 08:00 1 STRIP Insulin Human Regular IQ4HR SC 05/24/25 00:00 05/29/25 08:17 2 UNITS Dextrose 50 ml UD PRN IV 05/23/25 20:15 Insulin Glargine 20 units HS AL 05/24/25 22:00 05/27/25 22:00 20 UNITS Micafungin Sodium 100 mg/Sodium Chloride 100 ml @ 100 mls/hr DAILY@0800 IV 05/24/25 15:00 05/29/25 08:12 100 MLS/HR Purified Water 200 ml Q6HR GT 05/26/25 12:00 05/29/25 04:56 200 ML Hydralazine HCl 10 mg Q6HR PRN IV 05/28/25 06:00 05/28/25 21:23 10 MG Amlodipine Besylate 10 mg DAILY PO 05/28/25 10:00 05/28/25 09:33 10 MG Lactulose 30 ml Q6HR PO 05/28/25 12:00 05/28/25 17:50 30 ML Cefepime HCl 50 ml @ 12.5 mls/hr Q12H IV 05/28/25 23:00 05/28/25 23:15 12.5 MLS/HR Enoxaparin Sodium 80 mg BID SC 05/28/25 22:00 05/29/25 09:53 80 MG Examination: LUNGS:Normal, CVS:Normal, MSK:Normal laboratory and microbiology Laboratory Tests 05/29/25 03:40 Test 05/29/25 03:40 Range/Units Serum Glucose 152 H 74-106 mg/dL Microbiology Date/Time Source Procedure Growth Status 05/22/25 20:31 Bronchial Washings Gram Stain - Final Complete 05/22/25 20:31 Respiratory Culture - Final Yeast, not [place] albicans Complete 05/19/25 18:40 Nose MRSA Screen - Final Complete 05/18/25 03:07 Blood Blood Culture - Final NO GROWTH AFTER 5 DAYS OF INCUBATION. Complete Problem List/Assessment/Plan Problem List/Assessment/Plan Acute kidney injury superimposed Chronic Kidney Disease secondary hemodynamic mediated Acute hypoxic respiratory failure, patient intubated on ventilator Pneumonia Septic shock Congestive heart failure exacerbation AFib Diabetes mellitus type 2 Hypoalbuminemia Anemia of chronic kidney disease Hypokalemia Hyponatremia due to insensible water loss Recommendations Kidney function is improving Increased urine output Casarez catheter Strict I&Os KCL replacement IV antibiotics IVF half NS at 75 cc/hour Insulin sliding scale IV pressors for blood pressure support Discontinue amlodipine We will continue to follow up Plan discussed with: Other (Nurse) Dietary Evaluation Review Comments: Nutrition Recommendation: 1) EN Glucerna 1.2Cal @ 40ml/hr x 24hr (goal) along with Pro-stat 1 pk TID. TF at goal volume along with Propofol & Pro-stat provide 1589 kcal (100%), 103 gm protein (100%), and 773 ml free water. 2) Consider TPN/PN if NPO>7 days 3) Gordon 1 pk BID for DFU wound healing 4) Monitor NPO status, lab values, weight trend, and I/O Expected Outcomes/Goals: Wound to improve Intake to meet >75% estimated needs Lab values to improve FU 2-3 days Fluid Accumulation (Non Severe: Mild fluid retention Protein Calorie Malnutrition: N/A Is there a minimum of two crit: No JACINTA TUBBS MD May 29, 2025 11:28
[2025-05-29] MEDS: SOD CHL 0.45% 1,000 ML IV SCH (11:42)
[2025-05-29 13:54] LABS: Base Excess -4.4 mmol/L (-2.0-3.0)
[2025-05-30] VITALS (33 sets, daily range): BP systolic 127–169; BP diastolic 47–66; PULSE 68–98; RESP 10–23; TEMP 98.3–99.6; O2SAT 93–100
[2025-05-30 04:11] LABS: Nucleated Red Blood Cells % 0.0 %
[2025-05-30 04:14] LABS: Hematocrit 29.6 % (41.0-53.0); Hemoglobin 9.6 g/dL (13.5-17.5); Mean Corpuscular Hemoglobin 27.1 pg (28.0-32.0); Mean Corpuscular Volume 83.5 fL (80.0-100.0)
[2025-05-30 04:53] LABS: Anion Gap 12 (5-15); Carbon Dioxide 25 mmol/L (20-31)
[2025-05-30 04:57] LABS: Calcium 8.6 mg/dL (8.7-10.4); Chloride 109 mmol/L (98-107); Potassium 3.3 mmol/L (3.5-5.1); Sodium 146 mmol/L (136-145)
[2025-05-30 05:00] LABS: BUN/Creatinine Ratio 22.3 (10.0-20.0)
[2025-05-30 05:05] LABS: Blood Urea Nitrogen 27 mg/dL (9-23); Glucose 131 mg/dL (74-106)
--- NOTE | 2025-05-30 05:05 | DVH ---
CHEST RADIOGRAPH Indication: pna Technique: Single frontal view of the chest was obtained Comparison: XY CHEST XRAY 1 VIEW on DOS: 05/29/25 FINDINGS: Lines and Tubes: There is a right central venous catheter with its tip terminating in the superior vena cava. Right PICC terminates in the superior vena cava. The endotracheal and enteric tube have been removed. Lungs: Similar interstitial prominence. Bibasilar airspace disease. Pleura: Similar left pleural effusion. No pneumothorax. Cardiomediastinal contours: Stable Cardiovascular silhouette. Bones: No acute osseous abnormality. IMPRESSION: 1. Interval removal of the endotracheal and enteric tube. 2. Similar left pleural effusion and bibasilar airspace disease.
[2025-05-30] MEDS: POTASSIUM CHL 20MEQ/100ML 100 ML IV ONE (06:35)
--- NOTE | 2025-05-30 09:13 | DVHPN2 ---
Progress Note Date Seen: May 30, 2025 Has the PT tested + for MRSA If YES, has PT been informed?: No Medical Necessity Reason Pt with a Central, PICC or Fol: Yes The following are medically ne: Central Line, Casarez Catheter Reason for casarez catheter: Strict I&O Subjective Review of Systems: RESPIRATORY:Abnormal Other Systems: Patient seen and examined by myself today in follow-up, patient remained intubated on ventilator Objective vital signs Vital Sign Date Time Temp Pulse Resp B/P (MAP) Pulse Ox O2 Delivery O2 Flow Rate FiO2 05/30/25 08:00 98 20 97 Nasal Cannula* 2 28 05/30/25 08:00 98.6 161/60 (93) 98.6 Total Intake and Output 05/29/25 05/29/25 05/30/25 15:00 23:00 07:00 Intake Total 628.651 ml 1012.5 ml 700 ml Output Total 450 ml 1300 ml Balance 628.651 ml 562.5 ml -600 ml medications Current Medications Medications Dose Ordered Sig/Ankur Route Start Time Stop Time Status Last Admin Dose Admin Gabapentin 300 mg TID PO 05/18/25 06:00 05/29/25 14:07 300 MG Clopidogrel Bisulfate 75 mg DAILY PO 05/18/25 10:00 05/29/25 09:54 75 MG Ondansetron HCl 4 mg Q4HP PRN IV 05/18/25 04:45 Acetaminophen 650 mg Q6HP PRN PO 05/18/25 04:45 05/27/25 00:38 650 MG Nitroglycerin 0.4 mg Q5MINP PRN SL 05/18/25 04:45 Levalbuterol HCl 1.25 mg Q6HR NEB 05/18/25 12:00 05/30/25 06:53 1.25 MG Ipratropium [place] 0.5 mg Q6HR NEB 05/18/25 12:00 05/30/25 06:53 0.5 MG Pantoprazole Sodium 40 mg DAILY IV 05/19/25 10:00 05/29/25 09:49 40 MG Norepinephrine Bitartrate 250 ml @ 3.75 mls/hr Q24H IV 05/19/25 23:15 05/20/25 23:44 3.75 MLS/HR Nystatin 1 applic BID TOP 05/20/25 10:00 05/29/25 22:00 1 APPLIC Doxycycline Hyclate 100 ml @ 50 mls/hr Q12H IV 05/20/25 10:00 05/29/25 22:28 50 MLS/HR Bumetanide 2 mg BIDD IV 05/20/25 18:00 Cancel Amiodarone HCl 200 mg DAILY PO 05/23/25 10:00 05/29/25 09:50 200 MG Atorvastatin Calcium 40 mg HS GT 05/22/25 22:00 05/28/25 21:22 40 MG Diagnostic Test (Pha) 1 strip IQ4HR 05/24/25 00:00 05/30/25 07:55 1 STRIP Insulin Human Regular IQ4HR SC 05/24/25 00:00 05/29/25 16:26 2 UNITS Dextrose 50 ml UD PRN IV 05/23/25 20:15 Insulin Glargine 20 units HS SC 05/24/25 22:00 05/29/25 22:00 20 UNITS Micafungin Sodium 100 mg/Sodium Chloride 100 ml @ 100 mls/hr DAILY@0800 IV 05/24/25 15:00 05/30/25 07:55 100 MLS/HR Hydralazine HCl 10 mg Q6HR PRN IV 05/28/25 06:00 05/30/25 07:59 10 MG Cefepime HCl 50 ml @ 12.5 mls/hr Q12H IV 05/28/25 23:00 05/30/25 02:45 12.5 MLS/HR Enoxaparin Sodium 80 mg BID SC 05/28/25 22:00 05/29/25 22:31 80 MG laboratory and microbiology Laboratory Tests 05/30/25 03:37 Test 05/30/25 03:37 Range/Units Serum Glucose 131 H 74-106 mg/dL Microbiology Date/Time Source Procedure Growth Status 05/22/25 20:31 Bronchial Washings Gram Stain - Final Complete 05/22/25 20:31 Respiratory Culture - Final Yeast, not [place] albicans Complete 05/19/25 18:40 Nose MRSA Screen - Final Complete 05/18/25 03:07 Blood Blood Culture - Final NO GROWTH AFTER 5 DAYS OF INCUBATION. Complete Problem List/Assessment/Plan Problem List/Assessment/Plan Acute kidney injury superimposed Chronic Kidney Disease secondary hemodynamic mediated Acute hypoxic respiratory failure, patient intubated on ventilator Pneumonia Septic shock Congestive heart failure exacerbation AFib Diabetes mellitus type 2 Hypoalbuminemia Anemia of chronic kidney disease Hypokalemia Hyponatremia due to insensible water loss Recommendations Kidney function continues to improve Increased urine output Casarez catheter Strict I&Os KCL replacement IV antibiotics IVF 1/2 NS at 75 cc/hour Insulin sliding scale We will continue to follow up Plan discussed with: Other (Nurse) Dietary Evaluation Review Comments: Nutrition Recommendation: 1) EN Glucerna 1.2Cal @ 40ml/hr x 24hr (goal) along with Pro-stat 1 pk TID. TF at goal volume along with Propofol & Pro-stat provide 1589 kcal (100%), 103 gm protein (100%), and 773 ml free water. 2) Consider TPN/PN if NPO>7 days 3) [place] 1 pk BID for DFU wound healing 4) Monitor NPO status, lab values, weight trend, and I/O Expected Outcomes/Goals: Wound to improve Intake to meet >75% estimated needs Lab values to improve FU 2-3 days Fluid Accumulation (Non Severe: Mild fluid retention Protein Calorie Malnutrition: N/A Is there a minimum of two crit: JACINTA Patel MD May 30, 2025 09:13
[2025-05-30] MEDS: POTASSIUM CHL 20MEQ/100ML 100 ML IV SCH (09:41)
--- NOTE | 2025-05-30 10:19 | DVHPN2 ---
Subjective Patient intubated and sedated. Reviewed: Care Plan, H&P, Labs, Medications, Previous Orders, Radiology, Other (Consultations) Changes from previous H/P or p: No Changes General: Per HPI Objective Vitals Vital Signs Date Time Temp Pulse Resp B/P (MAP) Pulse Ox O2 Delivery O2 Flow Rate FiO2 05/30/25 10:00 18 99 Nasal Cannula* 2 28 05/30/25 10:00 85 161/61 (94) 05/30/25 08:00 98.6 98.6 Intake/Output Intake and Output 05/30/25 07:00 Intake Total 2341.151 ml Output Total 1750 ml Balance 591.151 ml Intake Oral 400 ml IV Total 1941.151 ml Tube Feeding 0 ml Output Urine Total 1750 ml # Voids 2 # Bowel Movements 1 General Appearance: Alert, Oriented X3, Cooperative, No acute distress HEENT: Atraumatic, PERRLA, Other (Central line in place) Lungs: Clear to auscultation, Normal air movement Cardiovascular: Regular rate, Normal S1, Normal S2 Abdomen: Normal bowel sounds, Soft Genitourinary: No Apparent Abnormalities (Nogueira catheter), Other (Nogueira's) Musculoskeletal: Normal sensory function, Normal motor function Neuro: Normal speech, Other (Intubated and sedated) Skin: Dry, Intact, Other (Stage I-II ulcer on the lateral aspect of the 1st metatarsophalangeal joint of the right side; present on admission; no discharge/bleeding) Psych/Mental Status: Mental status NL, Mood NL Medications Current Medications Medications Dose Ordered Sig/Ankur Route Start Time Stop Time Status Last Admin Dose Admin Gabapentin 300 mg TID PO 05/18/25 06:00 05/29/25 14:07 300 MG Clopidogrel Bisulfate 75 mg DAILY PO 05/18/25 10:00 05/30/25 09:47 75 MG Ondansetron HCl 4 mg Q4HP PRN IV 05/18/25 04:45 Acetaminophen 650 mg Q6HP PRN PO 05/18/25 04:45 05/27/25 00:38 650 MG Nitroglycerin 0.4 mg Q5MINP PRN SL 05/18/25 04:45 Levalbuterol HCl 1.25 mg Q6HR NEB 05/18/25 12:00 05/30/25 06:53 1.25 MG Ipratropium [place] 0.5 mg Q6HR NEB 05/18/25 12:00 05/30/25 06:53 0.5 MG Pantoprazole Sodium 40 mg DAILY IV 05/19/25 10:00 05/30/25 09:42 40 MG Norepinephrine Bitartrate 250 ml @ 3.75 mls/hr Q24H IV 05/19/25 23:15 05/20/25 23:44 3.75 MLS/HR Nystatin 1 applic BID TOP 05/20/25 10:00 05/30/25 09:56 1 APPLIC Doxycycline Hyclate 100 ml @ 50 mls/hr Q12H IV 05/20/25 10:00 05/30/25 09:42 50 MLS/HR Bumetanide 2 mg BIDD IV 05/20/25 18:00 Cancel Amiodarone HCl 200 mg DAILY PO 05/23/25 10:00 05/30/25 09:47 200 MG Atorvastatin Calcium 40 mg HS GT 05/22/25 22:00 05/28/25 21:22 40 MG Diagnostic Test (Pha) 1 strip IQ4HR 05/24/25 00:00 05/30/25 07:55 1 STRIP Insulin Human Regular IQ4HR SC 05/24/25 00:00 05/29/25 16:26 2 UNITS Dextrose 50 ml UD PRN IV 05/23/25 20:15 Insulin Glargine 20 units HS SC 05/24/25 22:00 05/29/25 22:00 20 UNITS Micafungin Sodium 100 mg/Sodium Chloride 100 ml @ 100 mls/hr DAILY@0800 IV 05/24/25 15:00 05/30/25 07:55 100 MLS/HR Hydralazine HCl 10 mg Q6HR PRN IV 05/28/25 06:00 05/30/25 07:59 10 MG Cefepime HCl 50 ml @ 12.5 mls/hr Q12H IV 05/28/25 23:00 05/30/25 02:45 12.5 MLS/HR Enoxaparin Sodium 80 mg BID SC 05/28/25 22:00 05/30/25 09:48 80 MG Potassium Chloride 100 ml @ 50 mls/hr Q2H IV 05/30/25 09:15 05/30/25 13:14 05/30/25 09:41 50 MLS/HR Amlodipine Besylate 5 mg DAILY PO 05/30/25 10:00 05/30/25 09:47 5 MG Laboratory Results Laboratory Tests 05/30/25 03:37 Chemistry Test 05/30/25 03:37 Calcium Level 8.6 mg/dL (8.7-10.4) L Urinalysis Test 05/24/25 20:00 Urine Color Colorless (Yellow) Urine Clarity Clear (Clear) Urine pH 5.0 (5.0-9.0) Urine Specific [place] 1.012 (1.001-1.035) Urine Protein Negative (Negative) Urine Ketones Negative (Negative) Urine Blood Negative /uL (Negative) Urine Nitrite Negative (Negative) Urine Bilirubin Negative (Negative) Urine Urobilinogen Normal mg/dL (Negative) Urine Leukocyte Esterase 3+ /uL (Negative) Urine RBC 4 /hpf (0 - 3) Urine Microscopic WBC 61 /HPF (0-3) H Urine Squamous Epithelial Cells Few /hpf (<5) Urine Amorphous Crystals Few /hpf (None Seen) Urine Bacteria Few /hpf (None Seen) H Urine Mucus Few (None Seen) Urine Creatinine 28.69 mg/dL (30.0-125.0) L Urine Protein/Creatinine Ratio 0.86 Urine Sodium 96 mmol/L (40-220) Urine Glucose Normal mg/dL (Normal) Urine Total Protein 24.7 mg/dL (1-14) H Blood Gas Results Test 05/29/25 13:40 Arterial Blood pH 7.424 (7.350-7.450) FiO2 % 30.0 Microbiology Microbiology Date/Time Source Procedure Growth Status 05/22/25 20:31 Bronchial Washings Gram Stain - Final Complete 05/22/25 20:31 Respiratory Culture - Final Yeast, not Carolina albicans Complete 05/19/25 18:40 Nose MRSA Screen - Final Complete 05/18/25 03:07 Blood Blood Culture - Final NO GROWTH AFTER 5 DAYS OF INCUBATION. Complete Labs and/or images reviewed: Labs reviewed by me, Image(s) reviewed by me Assessment/Plan Assessment/Plan Impression: -Acute Hypoxic Respiratory Failure -CAD with previous CABG -DM -Community Acquired PNA, Gram +/ Gram - -? hx of Afib -NSTEMI ? type II -Sepsis -acute on chronic diastolic heart failure Plan: Events: Patient extubated yesterday. Currently on low-flow O2. Patient A&O x4. Chest x-ray with improved bilateral infiltrates. -antibiotics: Continue cefepime and micafungin -bronchodilators -start clear liquid diet -nephrology consultation: Potassium replacement -stop IV fluid -anticoagulation per Cardiology -PPI -physical therapy -repeat labs and chest x-ray Critical care time spent with patient discussing and formulating plan of care: 40 minutes. This does not include time spent performing procedures. This medical document was created using an electronic medical record system with [employer] dictation system. Although this document has been carefully reviewed, there may still be some phonetic and typographical errors. These areas are purely typographical due to imperfections of the software programs, and do not reflect any compromise in the patient's medical care. Plan discussed with: Patient, Other (RN) My Orders Orders - CRISTIAN BUTT NP Procedure Category Date Status Time Pt Request For Service PT 05/30/25 Logged 09:04 Basic Metabolic Panel LAB 05/31/25 Verified 04:00 Magnesium LAB 05/31/25 Verified 04:00 Chest Portable XY 05/31/25 Logged 04:00 Clear Liq Diet DIET 05/30/25 Transmitted Lunch Date of Service: May 30, 2025 Billing Provider: CRISTIAN BUTT NP Common Visit Codes: 52080-SMNCSBTA CARE 30-74 MIN CRISTIAN BUTT NP May 30, 2025 10:19
--- NOTE | 2025-05-30 11:40 | DVHPN2 ---
Progress Note - Dictate Date Seen: May 30, 2025 Has the PT tested + for MRSA If YES, has PT been informed?: No Medical Necessity Reason Pt with a Central, PICC or Fol: Yes The following are medically ne: Central Line, Casarez Catheter Reason for casarez catheter: Strict I&O vital signs Vital Sign Date Time Temp Pulse Resp B/P (MAP) Pulse Ox O2 Delivery O2 Flow Rate FiO2 05/30/25 10:00 85 05/30/25 10:00 18 99 Nasal Cannula* 2 28 05/30/25 10:00 161/61 (94) 05/30/25 08:00 98.6 98.6 Total Intake and Output 05/29/25 05/29/25 05/30/25 15:00 23:00 07:00 Intake Total 628.651 ml 1012.5 ml 700 ml Output Total 450 ml 1300 ml Balance 628.651 ml 562.5 ml -600 ml medications Current Medications Medications Dose Ordered Sig/Ankur Route Start Time Stop Time Status Last Admin Dose Admin Gabapentin 300 mg TID PO 05/18/25 06:00 05/29/25 14:07 300 MG Clopidogrel Bisulfate 75 mg DAILY PO 05/18/25 10:00 05/30/25 09:47 75 MG Ondansetron HCl 4 mg Q4HP PRN IV 05/18/25 04:45 Acetaminophen 650 mg Q6HP PRN PO 05/18/25 04:45 05/27/25 00:38 650 MG Nitroglycerin 0.4 mg Q5MINP PRN SL 05/18/25 04:45 Levalbuterol HCl 1.25 mg Q6HR NEB 05/18/25 12:00 05/30/25 06:53 1.25 MG Ipratropium [place] 0.5 mg Q6HR NEB 05/18/25 12:00 05/30/25 06:53 0.5 MG Pantoprazole Sodium 40 mg DAILY IV 05/19/25 10:00 05/30/25 09:42 40 MG Norepinephrine Bitartrate 250 ml @ 3.75 mls/hr Q24H IV 05/19/25 23:15 05/20/25 23:44 3.75 MLS/HR Nystatin 1 applic BID TOP 05/20/25 10:00 05/30/25 09:56 1 APPLIC Doxycycline Hyclate 100 ml @ 50 mls/hr Q12H IV 05/20/25 10:00 05/30/25 09:42 50 MLS/HR Bumetanide 2 mg BIDD IV 05/20/25 18:00 Cancel Amiodarone HCl 200 mg DAILY PO 05/23/25 10:00 05/30/25 09:47 200 MG Atorvastatin Calcium 40 mg HS GT 05/22/25 22:00 05/28/25 21:22 40 MG Diagnostic Test (Pha) 1 strip IQ4HR 05/24/25 00:00 05/30/25 07:55 1 STRIP Insulin Human Regular IQ4HR SC 05/24/25 00:00 05/29/25 16:26 2 UNITS Dextrose 50 ml UD PRN IV 05/23/25 20:15 Insulin Glargine 20 units HS SC 05/24/25 22:00 05/29/25 22:00 20 UNITS Micafungin Sodium 100 mg/Sodium Chloride 100 ml @ 100 mls/hr DAILY@0800 IV 05/24/25 15:00 05/30/25 07:55 100 MLS/HR Hydralazine HCl 10 mg Q6HR PRN IV 05/28/25 06:00 05/30/25 07:59 10 MG Cefepime HCl 50 ml @ 12.5 mls/hr Q12H IV 05/28/25 23:00 05/30/25 02:45 12.5 MLS/HR Enoxaparin Sodium 80 mg BID SC 05/28/25 22:00 05/30/25 09:48 80 MG Potassium Chloride 100 ml @ 50 mls/hr Q2H IV 05/30/25 09:15 05/30/25 13:14 05/30/25 09:41 50 MLS/HR Amlodipine Besylate 5 mg DAILY PO 05/30/25 10:00 05/30/25 09:47 5 MG laboratory and microbiology Laboratory Tests 05/30/25 03:37 Test 05/30/25 03:37 Range/Units Serum Glucose 131 H 74-106 mg/dL Assessment/Plan Impression Acute hypoxemic respiratory failure Pulmonary edema Pneumonia MENDEL Patient seen and examined in ICU Events On mechanical ventilation S/p intubation PEEP 5 FiO2 35% Off sedation x2 days Not waking up S/p bronchoscopy Labs and imaging reviewed ABG reviewed Management Vent support Titrate to maintain sats 90% or above When patient is more awake, proceed to weaning trial Pressure support 12/31, extubate when ready Continue antibiotics F/u cultures Bronchodilators Diurese Monitor renal function F/u nephrology, management deferred Monitor electrolytes Supplement as needed Pressors as needed for hemodynamic support To maintain a mean arterial pressure of 65 mmHg DVT prophylaxis Critical care time 35 minutes Dietary Evaluation Review Comments: Nutrition Recommendation: 1) EN Glucerna 1.2Cal @ 40ml/hr x 24hr (goal) along with Pro-stat 1 pk TID. TF at goal volume along with Propofol & Pro-stat provide 1589 kcal (100%), 103 gm protein (100%), and 773 ml free water. 2) Consider TPN/PN if NPO>7 days 3) Gordon 1 pk BID for DFU wound healing 4) Monitor NPO status, lab values, weight trend, and I/O Expected Outcomes/Goals: Wound to improve Intake to meet >75% estimated needs Lab values to improve FU 2-3 days Fluid Accumulation (Non Severe: Mild fluid retention Protein Calorie Malnutrition: N/A Is there a minimum of two crit: No Plan discussed with: Other (Rn) KIT RUBIO MD May 30, 2025 11:40
--- NOTE | 2025-05-30 15:16 | DVHPN2 ---
Progress Note Date Seen: May 30, 2025 Has the PT tested + for MRSA If YES, has PT been informed?: No Medical Necessity Reason Pt with a Central, PICC or Fol: Yes The following are medically ne: Central Line, Casarez Catheter Reason for casarez catheter: Strict I&O Subjective Review of Systems: RESPIRATORY:Abnormal Other Systems: Patient seen and examined by myself today in follow-up Objective vital signs Vital Sign Date Time Temp Pulse Resp B/P (MAP) Pulse Ox O2 Delivery O2 Flow Rate FiO2 05/30/25 13:00 78 13 164/62 (96) 97 05/30/25 12:10 Nasal Cannula 2.0 05/30/25 12:10 28 05/30/25 12:00 99.4 99.4 Total Intake and Output 05/29/25 05/29/25 05/30/25 15:00 23:00 07:00 Intake Total 628.651 ml 1012.5 ml 700 ml Output Total 450 ml 1300 ml Balance 628.651 ml 562.5 ml -600 ml medications Current Medications Medications Dose Ordered Sig/Ankur Route Start Time Stop Time Status Last Admin Dose Admin Gabapentin 300 mg TID PO 05/18/25 06:00 05/30/25 14:28 300 MG Clopidogrel Bisulfate 75 mg DAILY PO 05/18/25 10:00 05/30/25 09:47 75 MG Ondansetron HCl 4 mg Q4HP PRN IV 05/18/25 04:45 Acetaminophen 650 mg Q6HP PRN PO 05/18/25 04:45 05/27/25 00:38 650 MG Nitroglycerin 0.4 mg Q5MINP PRN SL 05/18/25 04:45 Levalbuterol HCl 1.25 mg Q6HR NEB 05/18/25 12:00 05/30/25 12:10 1.25 MG Ipratropium [place] 0.5 mg Q6HR NEB 05/18/25 12:00 05/30/25 12:10 0.5 MG Pantoprazole Sodium 40 mg DAILY IV 05/19/25 10:00 05/30/25 09:42 40 MG Norepinephrine Bitartrate 250 ml @ 3.75 mls/hr Q24H IV 05/19/25 23:15 05/20/25 23:44 3.75 MLS/HR Nystatin 1 applic BID TOP 05/20/25 10:00 05/30/25 09:56 1 APPLIC Doxycycline Hyclate 100 ml @ 50 mls/hr Q12H IV 05/20/25 10:00 05/30/25 09:42 50 MLS/HR Bumetanide 2 mg BIDD IV 05/20/25 18:00 Cancel Amiodarone HCl 200 mg DAILY PO 05/23/25 10:00 05/30/25 09:47 200 MG Atorvastatin Calcium 40 mg HS GT 05/22/25 22:00 05/28/25 21:22 40 MG Diagnostic Test (Pha) 1 strip IQ4HR 05/24/25 00:00 05/30/25 12:23 1 STRIP Insulin Human Regular IQ4HR SC 05/24/25 00:00 05/29/25 16:26 2 UNITS Dextrose 50 ml UD PRN IV 05/23/25 20:15 Insulin Glargine 20 units HS SC 05/24/25 22:00 05/29/25 22:00 20 UNITS Micafungin Sodium 100 mg/Sodium Chloride 100 ml @ 100 mls/hr DAILY@0800 IV 05/24/25 15:00 05/30/25 07:55 100 MLS/HR Hydralazine HCl 10 mg Q6HR PRN IV 05/28/25 06:00 05/30/25 07:59 10 MG Cefepime HCl 50 ml @ 12.5 mls/hr Q12H IV 05/28/25 23:00 05/30/25 12:34 12.5 MLS/HR Enoxaparin Sodium 80 mg BID SC 05/28/25 22:00 05/30/25 09:48 80 MG Amlodipine Besylate 5 mg DAILY PO 05/30/25 10:00 05/30/25 09:47 5 MG Examination: LUNGS:Normal, CVS:Normal, MSK:Normal laboratory and microbiology Laboratory Tests 05/30/25 03:37 Test 05/30/25 03:37 Range/Units Serum Glucose 131 H 74-106 mg/dL Microbiology Date/Time Source Procedure Growth Status 05/22/25 20:31 Bronchial Washings Gram Stain - Final Complete 05/22/25 20:31 Respiratory Culture - Final Yeast, not [place] albicans Complete 05/19/25 18:40 Nose MRSA Screen - Final Complete 05/18/25 03:07 Blood Blood Culture - Final NO GROWTH AFTER 5 DAYS OF INCUBATION. Complete Problem List/Assessment/Plan Problem List/Assessment/Plan Acute kidney injury superimposed Chronic Kidney Disease secondary hemodynamic mediated Acute hypoxic respiratory failure, patient intubated on ventilator Pneumonia Septic shock Congestive heart failure exacerbation AFib Diabetes mellitus type 2 Hypoalbuminemia Anemia of chronic kidney disease Hypokalemia Hyponatremia due to insensible water loss Recommendations Kidney function continues to improve Increased urine output Casarez catheter Strict I&Os KCL replacement IV antibiotics IVF 1/2 NS at 75 cc/hour Insulin sliding scale We will continue to follow up Plan discussed with: Patient My Orders My Orders Orders - JACINTA TUBBS MD Procedure Category Date Status Time Amlodipine Tablet PHA 05/30/25 In Process (Norvasc Tablet) 10:00 Dietary Evaluation Review Comments: Nutrition Recommendation: 1) EN Glucerna 1.2Cal @ 40ml/hr x 24hr (goal) along with Pro-stat 1 pk TID. TF at goal volume along with Propofol & Pro-stat provide 1589 kcal (100%), 103 gm protein (100%), and 773 ml free water. 2) Consider TPN/PN if NPO>7 days 3) Gordon 1 pk BID for DFU wound healing 4) Monitor NPO status, lab values, weight trend, and I/O Expected Outcomes/Goals: Wound to improve Intake to meet >75% estimated needs Lab values to improve FU 2-3 days Fluid Accumulation (Non Severe: Mild fluid retention Protein Calorie Malnutrition: N/A Is there a minimum of two crit: JACINTA Patel MD May 30, 2025 15:16
[2025-05-30] MEDS: CEFEPIME 2GM/50ML NS 50 ML IV SCH (21:04)
[2025-05-31] VITALS (37 sets, daily range): BP systolic 109–157; BP diastolic 51–74; PULSE 67–94; RESP 12–26; TEMP 97.7–98.8; O2SAT 92–100
[2025-05-31 05:46] LABS: Hematocrit 31.3 % (41.0-53.0); Hemoglobin 10.2 g/dL (13.5-17.5); Mean Corpuscular Hemoglobin 27.2 pg (28.0-32.0); Mean Corpuscular Volume 83.5 fL (80.0-100.0); Nucleated Red Blood Cells % 0.1 %
--- NOTE | 2025-05-31 05:51 | DVH ---
CHEST RADIOGRAPH Indication: pna Technique: Single frontal view of the chest was obtained COMPARISON: XY CHEST PORTABLE on DOS: 05/30/25, XY CHEST XRAY 1 VIEW on DOS: 05/29/25, XY CHEST XRAY 1 VIEW on DOS: 05/28/25, XY CHEST PORTABLE on DOS: 05/27/25, XY CHEST PORTABLE on DOS: 05/26/25 FINDINGS: Lines and Tubes: Median sternotomy. Right central venous catheter in satisfactory position. Right PICC in satisfactory position. Lungs: Unchanged mild pulmonary vascular congestion. Pleura: Unchanged trace left pleural effusion. No pneumothorax. Cardiomediastinal contours: Cardiomegaly. Bones: Unremarkable IMPRESSION: Unchanged mild pulmonary vascular congestion and trace left pleural effusion.
[2025-05-31 06:23] LABS: Albumin 3.3 g/dL (3.2-4.8); Alkaline Phosphatase 92 U/L (46-116); Anion Gap 12 (5-15); BUN/Creatinine Ratio 17.0 (10.0-20.0); Blood Urea Nitrogen 19 mg/dL (9-23); Carbon Dioxide 23 mmol/L (20-31); Total Protein 5.9 g/dL (5.7-8.2)
[2025-05-31 06:25] LABS: Bilirubin, Total 0.4 mg/dL (0.2-1.0)
[2025-05-31 06:31] LABS: Alanine Aminotransferase 40 U/L (7-40); Calcium 8.5 mg/dL (8.7-10.4); Chloride 111 mmol/L (98-107); Glucose 110 mg/dL (74-106); Potassium 3.4 mmol/L (3.5-5.1); Sodium 146 mmol/L (136-145)
[2025-05-31] MEDS ORDERED: DEXTROSE (50%) 50ML SYRG IV PRN (08:15)
[2025-05-31] MEDS: ACETAMINOPHEN 650 mg PER 20.3 mL UD PO PRN (08:40)
[2025-05-31] MEDS: POTASSIUM EFFERVESENT TAB 25 MEQ PO ONE (08:40)
--- NOTE | 2025-05-31 10:46 | MEDREC ---
[facility] Intervention Section I [facility] Intervention: Review dannie of ABX 48h AIO (Pt has been on Cefepime and Micafungin for 14 days each, please review if still needed) DEBRA ED [place] [facility]ANT[place] PHARMACIST May 31, 2025 10:46
[2025-05-31] MEDS: FUROSEMIDE 20 MG TAB PO SCH (11:14)
[2025-05-31] MEDS: ACCU-CHEK COMFORT CURVE STRIP VI SCH (12:16)
[2025-05-31] MEDS: InsuLIN REG 1unit/0.01ml Soln (100units/ml) ONE (12:22)
[2025-05-31] MEDS: InsuLIN REG 1unit/0.01ml Soln (100units/ml) SC SCH (12:23)
--- NOTE | 2025-05-31 12:59 | DVHPN2 ---
Progress Note - Dictate Date Seen: May 31, 2025 Has the PT tested + for MRSA If YES, has PT been informed?: No Medical Necessity Reason Pt with a Central, PICC or Fol: Yes The following are medically ne: Central Line, Casarez Catheter Reason for casarez catheter: Strict I&O vital signs Vital Sign Date Time Temp Pulse Resp B/P (MAP) Pulse Ox O2 Delivery O2 Flow Rate FiO2 05/31/25 11:43 78 16 100 05/31/25 11:35 Nasal Cannula 2.0 05/31/25 11:35 28 05/31/25 11:15 147/68 05/31/25 08:00 97.7 97.7 Total Intake and Output 05/30/25 05/30/25 05/31/25 15:00 23:00 07:00 Intake Total 487.5 ml 492.5 ml 390 ml Output Total 850 ml 550 ml Balance 487.5 ml -357.5 ml -160 ml medications Current Medications Medications Dose Ordered Sig/Ankur Route Start Time Stop Time Status Last Admin Dose Admin Gabapentin 300 mg TID PO 05/18/25 06:00 05/31/25 04:55 300 MG Clopidogrel Bisulfate 75 mg DAILY PO 05/18/25 10:00 05/31/25 11:15 75 MG Ondansetron HCl 4 mg Q4HP PRN IV 05/18/25 04:45 Nitroglycerin 0.4 mg Q5MINP PRN SL 05/18/25 04:45 Levalbuterol HCl 1.25 mg Q6HR NEB 05/18/25 12:00 05/31/25 11:35 1.25 MG Ipratropium [place] 0.5 mg Q6HR NEB 05/18/25 12:00 05/31/25 11:35 0.5 MG Pantoprazole Sodium 40 mg DAILY IV 05/19/25 10:00 05/31/25 11:13 40 MG Nystatin 1 applic BID TOP 05/20/25 10:00 05/30/25 21:06 1 APPLIC Bumetanide 2 mg BIDD IV 05/20/25 18:00 Cancel Amiodarone HCl 200 mg DAILY PO 05/23/25 10:00 05/31/25 11:13 200 MG Atorvastatin Calcium 40 mg HS GT 05/22/25 22:00 05/30/25 21:04 40 MG Insulin Glargine 20 units HS SC 05/24/25 22:00 05/30/25 21:06 20 UNITS Micafungin Sodium 100 mg/Sodium Chloride 100 ml @ 100 mls/hr DAILY@0800 IV 05/24/25 15:00 05/31/25 08:18 100 MLS/HR Hydralazine HCl 10 mg Q6HR PRN IV 05/28/25 06:00 05/30/25 15:25 10 MG Enoxaparin Sodium 80 mg BID SC 05/28/25 22:00 05/31/25 11:37 80 MG Amlodipine Besylate 5 mg DAILY PO 05/30/25 10:00 05/31/25 11:15 5 MG Cefepime HCl 50 ml @ 12.5 mls/hr Q12HR IV 05/30/25 22:00 05/31/25 11:08 12.5 MLS/HR Acetaminophen 650 mg Q6HP PRN PO 05/31/25 08:00 05/31/25 08:40 650 MG Furosemide 20 mg DAILY PO 05/31/25 10:00 05/31/25 11:14 20 MG Diagnostic Test (Pha) 1 strip ACHS 05/31/25 11:30 05/31/25 12:16 1 STRIP Insulin Human Regular ACHS SC 05/31/25 11:30 05/31/25 12:23 4 UNITS Dextrose 50 ml UD PRN IV 05/31/25 08:15 laboratory and microbiology Laboratory Tests 05/31/25 05:18 Test 05/31/25 05:18 Range/Units Serum Glucose 110 H 74-106 mg/dL Assessment/Plan Impression Acute hypoxemic respiratory failure Pulmonary edema Pneumonia MENDEL Patient seen and examined Events s/p extubation d/graded S/p bronchoscopy (while was intubated) for pneumonia Labs and imaging reviewed ABG reviewed Management suppl 02 inc spirometry Continue antibiotics F/u cultures Bronchodilators Diurese Monitor renal function F/u nephrology, management deferred Monitor electrolytes Supplement as needed DVT prophylaxis Dietary Evaluation Review Comments: Nutrition Recommendation: 1) EN Glucerna 1.2Cal @ 40ml/hr x 24hr (goal) along with Pro-stat 1 pk TID. TF at goal volume along with Propofol & Pro-stat provide 1589 kcal (100%), 103 gm protein (100%), and 773 ml free water. 2) Consider TPN/PN if NPO>7 days 3) Gordon 1 pk BID for DFU wound healing 4) Monitor NPO status, lab values, weight trend, and I/O Expected Outcomes/Goals: Wound to improve Intake to meet >75% estimated needs Lab values to improve FU 2-3 days Fluid Accumulation (Non Severe: Mild fluid retention Protein Calorie Malnutrition: N/A Is there a minimum of two crit: No Plan discussed with: Patient KIT RUBIO MD May 31, 2025 12:59
--- NOTE | 2025-05-31 13:12 | DVHPN2 ---
Progress Note Date Seen: May 31, 2025 Has the PT tested + for MRSA If YES, has PT been informed?: No Medical Necessity Reason Pt with a Central, PICC or Fol: Yes The following are medically ne: Central Line, Casarez Catheter Reason for casarez catheter: Strict I&O Subjective Patient reports: No new complaints Other Systems: Patient seen and examined by myself today in follow-up Objective vital signs Vital Sign Date Time Temp Pulse Resp B/P (MAP) Pulse Ox O2 Delivery O2 Flow Rate FiO2 05/31/25 13:00 78 15 134/59 (84) 96 05/31/25 12:00 Room Air* 0 21 05/31/25 12:00 98.3 98.3 Total Intake and Output 05/30/25 05/30/25 05/31/25 15:00 23:00 07:00 Intake Total 487.5 ml 492.5 ml 390 ml Output Total 850 ml 550 ml Balance 487.5 ml -357.5 ml -160 ml medications Current Medications Medications Dose Ordered Sig/Ankur Route Start Time Stop Time Status Last Admin Dose Admin Gabapentin 300 mg TID PO 05/18/25 06:00 05/31/25 04:55 300 MG Clopidogrel Bisulfate 75 mg DAILY PO 05/18/25 10:00 05/31/25 11:15 75 MG Ondansetron HCl 4 mg Q4HP PRN IV 05/18/25 04:45 Nitroglycerin 0.4 mg Q5MINP PRN SL 05/18/25 04:45 Levalbuterol HCl 1.25 mg Q6HR NEB 05/18/25 12:00 05/31/25 11:35 1.25 MG Ipratropium [place] 0.5 mg Q6HR NEB 05/18/25 12:00 05/31/25 11:35 0.5 MG Pantoprazole Sodium 40 mg DAILY IV 05/19/25 10:00 05/31/25 11:13 40 MG Nystatin 1 applic BID TOP 05/20/25 10:00 05/30/25 21:06 1 APPLIC Bumetanide 2 mg BIDD IV 05/20/25 18:00 Cancel Amiodarone HCl 200 mg DAILY PO 05/23/25 10:00 05/31/25 11:13 200 MG Atorvastatin Calcium 40 mg HS GT 05/22/25 22:00 05/30/25 21:04 40 MG Insulin Glargine 20 units HS SC 05/24/25 22:00 05/30/25 21:06 20 UNITS Micafungin Sodium 100 mg/Sodium Chloride 100 ml @ 100 mls/hr DAILY@0800 IV 05/24/25 15:00 05/31/25 08:18 100 MLS/HR Hydralazine HCl 10 mg Q6HR PRN IV 05/28/25 06:00 05/30/25 15:25 10 MG Enoxaparin Sodium 80 mg BID SC 05/28/25 22:00 05/31/25 11:37 80 MG Amlodipine Besylate 5 mg DAILY PO 05/30/25 10:00 05/31/25 11:15 5 MG Cefepime HCl 50 ml @ 12.5 mls/hr Q12HR IV 05/30/25 22:00 05/31/25 11:08 12.5 MLS/HR Acetaminophen 650 mg Q6HP PRN PO 05/31/25 08:00 05/31/25 08:40 650 MG Furosemide 20 mg DAILY PO 05/31/25 10:00 05/31/25 11:14 20 MG Diagnostic Test (Pha) 1 strip ACHS 05/31/25 11:30 05/31/25 12:16 1 STRIP Insulin Human Regular ACHS SC 05/31/25 11:30 05/31/25 12:23 4 UNITS Dextrose 50 ml UD PRN IV 05/31/25 08:15 Examination: LUNGS:Normal, CVS:Normal, MSK:Normal laboratory and microbiology Laboratory Tests 05/31/25 05:18 Test 05/31/25 05:18 Range/Units Serum Glucose 110 H 74-106 mg/dL Microbiology Date/Time Source Procedure Growth Status 05/22/25 20:31 Bronchial Washings Gram Stain - Final Complete 05/22/25 20:31 Respiratory Culture - Final Yeast, not Carolina albicans Complete 05/19/25 18:40 Nose MRSA Screen - Final Complete 05/18/25 03:07 Blood Blood Culture - Final NO GROWTH AFTER 5 DAYS OF INCUBATION. Complete Problem List/Assessment/Plan Problem List/Assessment/Plan Acute kidney injury superimposed Chronic Kidney Disease secondary hemodynamic mediated Acute hypoxic respiratory failure, patient is a extubated Pneumonia Septic shock Congestive heart failure exacerbation AFib Diabetes mellitus type 2 Hypoalbuminemia Anemia of chronic kidney disease Hypokalemia Hypernatremia due to insensible water loss Recommendations Kidney function continues to improve Increased urine output Casarez catheter Strict I&Os KCL replacement IV antibiotics IVF 1/2 NS at 75 cc/hour Insulin sliding scale We will continue to follow up Plan discussed with: Patient Dietary Evaluation Review Comments: Nutrition Recommendation: 1) EN Glucerna 1.2Cal @ 40ml/hr x 24hr (goal) along with Pro-stat 1 pk TID. TF at goal volume along with Propofol & Pro-stat provide 1589 kcal (100%), 103 gm protein (100%), and 773 ml free water. 2) Consider TPN/PN if NPO>7 days 3) Gordon 1 pk BID for DFU wound healing 4) Monitor NPO status, lab values, weight trend, and I/O Expected Outcomes/Goals: Wound to improve Intake to meet >75% estimated needs Lab values to improve FU 2-3 days Fluid Accumulation (Non Severe: Mild fluid retention Protein Calorie Malnutrition: N/A Is there a minimum of two crit: JACINTA Patel MD May 31, 2025 13:12
--- NOTE | 2025-05-31 14:58 | DVHPN2 ---
Subjective Patient denies any symptoms at this time. Reviewed: Care Plan, H&P, Labs, Medications, Previous Orders, Radiology, Other (Consultations) Changes from previous H/P or p: No Changes General: Per HPI Objective Vitals Vital Signs Date Time Temp Pulse Resp B/P (MAP) Pulse Ox O2 Delivery O2 Flow Rate FiO2 05/31/25 13:00 78 15 134/59 (84) 96 05/31/25 12:00 Room Air* 0 21 05/31/25 12:00 98.3 98.3 Intake/Output Intake and Output 05/31/25 07:00 Intake Total 1370.0 ml Output Total 1400 ml Balance -30.0 ml Intake Oral 720 ml IV Total 650.0 ml Output Urine Total 1400 ml # Bowel Movements 5 General Appearance: Alert, Oriented X3, Cooperative, No acute distress HEENT: Atraumatic, PERRLA, Other (Central line in place) Lungs: Clear to auscultation, Normal air movement Cardiovascular: Regular rate, Normal S1, Normal S2 Abdomen: Normal bowel sounds, Soft Genitourinary: No Apparent Abnormalities (Nogueira catheter), Other (Nogueira's) Musculoskeletal: Normal sensory function, Normal motor function Neuro: Normal speech, Other (Intubated and sedated) Skin: Dry, Intact, Other (Stage I-II ulcer on the lateral aspect of the 1st metatarsophalangeal joint of the right side; present on admission; no discharge/bleeding) Psych/Mental Status: Mental status NL, Mood NL Medications Current Medications Medications Dose Ordered Sig/Ankur Route Start Time Stop Time Status Last Admin Dose Admin Gabapentin 300 mg TID PO 05/18/25 06:00 05/31/25 14:42 300 MG Clopidogrel Bisulfate 75 mg DAILY PO 05/18/25 10:00 05/31/25 11:15 75 MG Ondansetron HCl 4 mg Q4HP PRN IV 05/18/25 04:45 Nitroglycerin 0.4 mg Q5MINP PRN SL 05/18/25 04:45 Levalbuterol HCl 1.25 mg Q6HR NEB 05/18/25 12:00 05/31/25 11:35 1.25 MG Ipratropium [place] 0.5 mg Q6HR NEB 05/18/25 12:00 05/31/25 11:35 0.5 MG Pantoprazole Sodium 40 mg DAILY IV 05/19/25 10:00 05/31/25 11:13 40 MG Nystatin 1 applic BID TOP 05/20/25 10:00 05/30/25 21:06 1 APPLIC Bumetanide 2 mg BIDD IV 05/20/25 18:00 Cancel Amiodarone HCl 200 mg DAILY PO 05/23/25 10:00 05/31/25 11:13 200 MG Atorvastatin Calcium 40 mg HS GT 05/22/25 22:00 05/30/25 21:04 40 MG Insulin Glargine 20 units HS SC 05/24/25 22:00 05/30/25 21:06 20 UNITS Micafungin Sodium 100 mg/Sodium Chloride 100 ml @ 100 mls/hr DAILY@0800 IV 05/24/25 15:00 05/31/25 08:18 100 MLS/HR Hydralazine HCl 10 mg Q6HR PRN IV 05/28/25 06:00 05/30/25 15:25 10 MG Enoxaparin Sodium 80 mg BID SC 05/28/25 22:00 05/31/25 11:37 80 MG Amlodipine Besylate 5 mg DAILY PO 05/30/25 10:00 05/31/25 11:15 5 MG Cefepime HCl 50 ml @ 12.5 mls/hr Q12HR IV 05/30/25 22:00 05/31/25 11:08 12.5 MLS/HR Acetaminophen 650 mg Q6HP PRN PO 05/31/25 08:00 05/31/25 08:40 650 MG Furosemide 20 mg DAILY PO 05/31/25 10:00 05/31/25 11:14 20 MG Diagnostic Test (Pha) 1 strip ACHS 05/31/25 11:30 05/31/25 12:16 1 STRIP Insulin Human Regular ACHS SC 05/31/25 11:30 05/31/25 12:23 4 UNITS Dextrose 50 ml UD PRN IV 05/31/25 08:15 Laboratory Results Laboratory Tests 05/31/25 05:18 Chemistry Test 05/31/25 05:18 Albumin 3.3 g/dL (3.2-4.8) Calcium Level 8.5 mg/dL (8.7-10.4) L Magnesium Level 2.1 mg/dL (1.6-2.6) Total Protein 5.9 g/dL (5.7-8.2) LFT Test 05/31/25 05:18 Alanine Aminotransferase (ALT) 40 U/L (7-40) Alkaline Phosphatase 92 U/L (46-116) Aspartate Amino Transferase (AST) 31 U/L (13-40) Total Bilirubin 0.4 mg/dL (0.2-1.0) Urinalysis Test 05/24/25 20:00 Urine Color Colorless (Yellow) Urine Clarity Clear (Clear) Urine pH 5.0 (5.0-9.0) Urine Specific [place] 1.012 (1.001-1.035) Urine Protein Negative (Negative) Urine Ketones Negative (Negative) Urine Blood Negative /uL (Negative) Urine Nitrite Negative (Negative) Urine Bilirubin Negative (Negative) Urine Urobilinogen Normal mg/dL (Negative) Urine Leukocyte Esterase 3+ /uL (Negative) Urine RBC 4 /hpf (0 - 3) Urine Microscopic WBC 61 /HPF (0-3) H Urine Squamous Epithelial Cells Few /hpf (<5) Urine Amorphous Crystals Few /hpf (None Seen) Urine Bacteria Few /hpf (None Seen) H Urine Mucus Few (None Seen) Urine Creatinine 28.69 mg/dL (30.0-125.0) L Urine Protein/Creatinine Ratio 0.86 Urine Sodium 96 mmol/L (40-220) Urine Glucose Normal mg/dL (Normal) Urine Total Protein 24.7 mg/dL (1-14) H Microbiology Microbiology Date/Time Source Procedure Growth Status 05/22/25 20:31 Bronchial Washings Gram Stain - Final Complete 05/22/25 20:31 Respiratory Culture - Final Yeast, not [place] albicans Complete 05/19/25 18:40 Nose MRSA Screen - Final Complete 05/18/25 03:07 Blood Blood Culture - Final NO GROWTH AFTER 5 DAYS OF INCUBATION. Complete Labs and/or images reviewed: Labs reviewed by me, Image(s) reviewed by me Assessment/Plan Assessment/Plan Impression: -Acute Hypoxic Respiratory Failure -CAD with previous CABG -DM -Community Acquired PNA, Gram +/ Gram - -? hx of Afib -NSTEMI ? type II -Sepsis -acute on chronic diastolic heart failure Plan: Events: Patient A&O x4. Noted to be sitting in a chair without any respiratory difficulties. Back O2 supplementation. Tolerating full liquid diet, thickened texture. Patient continues to be hypokalemic. -antibiotics: Continue cefepime and micafungin -bronchodilators -potassium replete -nephrology consultation: Potassium replacement -anticoagulation per Cardiology -swallow evaluation pending -PPI -physical therapy -repeat labs and chest x-ray Critical care time spent with patient discussing and formulating plan of care: 40 minutes. This does not include time spent performing procedures. This medical document was created using an electronic medical record system with [employer] dictation system. Although this document has been carefully reviewed, there may still be some phonetic and typographical errors. These areas are purely typographical due to imperfections of the software programs, and do not reflect any compromise in the patient's medical care. Plan discussed with: Patient, Other (RN) My Orders Orders - CRISTIAN BUTT NP Procedure Category Date Status Time Acetaminophen PHA 05/31/25 In Process Solution Oral 08:00 Furosemide Tablet PHA 05/31/25 In Process (Lasix Tablet) 10:00 Full Liq Diet DIET 05/31/25 Transmitted Breakfast Glucose Blood PHA 05/31/25 In Process (Accu-Chek Comfort 11:30 Insulin R (Human) PHA 05/31/25 In Process (Insulin R) 11:30 Dextrose 50% Syringe PHA 05/31/25 In Process 08:15 Basic Metabolic Panel LAB 06/01/25 Verified 04:00 Magnesium LAB 06/01/25 Verified 04:00 Chest Portable XY 06/01/25 Logged 04:00 Date of Service: May 31, 2025 Billing Provider: CRISTIAN BUTT NP Common Visit Codes: [id number] INP/OBS CARE(HIGH) CRISTIAN BUTT NP May 31, 2025 14:58
[2025-06-01] VITALS (33 sets, daily range): BP systolic 132–165; BP diastolic 63–120; PULSE 73–101; RESP 11–25; TEMP 97.7–98.7; O2SAT 90–100
[2025-06-01 05:54] LABS: Potassium 3.7 mmol/L (3.5-5.1)
[2025-06-01 05:55] LABS: Anion Gap 12 (5-15); Carbon Dioxide 25 mmol/L (20-31)
[2025-06-01 05:56] LABS: Calcium 8.6 mg/dL (8.7-10.4); Chloride 109 mmol/L (98-107); Sodium 146 mmol/L (136-145)
--- NOTE | 2025-06-01 05:59 | DVH ---
CHEST RADIOGRAPH Indication: pna Technique: Single frontal view of the chest was obtained COMPARISON: XY CHEST PORTABLE on DOS: 05/31/25, XY CHEST PORTABLE on DOS: 05/30/25, XY CHEST XRAY 1 VIEW on DOS: 05/29/25, XY CHEST XRAY 1 VIEW on DOS: 05/28/25, XY CHEST PORTABLE on DOS: 05/27/25 FINDINGS: Lines and Tubes: Right central venous catheter in satisfactory position. Right PICC in satisfactory position. Lungs: Unchanged pulmonary vascular congestion. Unchanged possible left lower lobe airspace disease or atelectasis. Pleura: Possible trace left pleural effusion. No pneumothorax. Cardiomediastinal contours: Median sternotomy. Cardiomegaly. Bones: IMPRESSION: No significant interval change.
[2025-06-01 06:00] LABS: BUN/Creatinine Ratio 13.2 (10.0-20.0); Blood Urea Nitrogen 17 mg/dL (9-23); Glucose 90 mg/dL (74-106); Magnesium 2.0 mg/dL (1.6-2.6)
--- NOTE | 2025-06-01 09:50 | DVHPN2 ---
Progress Note Date Seen: Jun 01, 2025 Has the PT tested + for MRSA If YES, has PT been informed?: No Medical Necessity Reason Pt with a Central, PICC or Fol: Yes The following are medically ne: Central Line, Casarez Catheter Reason for casarez catheter: Strict I&O Subjective Patient reports: No new complaints Other Systems: Patient seen and examined by myself today in follow-up Objective vital signs Vital Sign Date Time Temp Pulse Resp B/P (MAP) Pulse Ox O2 Delivery O2 Flow Rate FiO2 06/01/25 06:42 78 18 100 06/01/25 06:36 Room Air 06/01/25 06:36 0 21 06/01/25 06:00 155/72 (99) 06/01/25 04:00 98.5 98.5 Total Intake and Output 05/31/25 05/31/25 06/01/25 15:00 23:00 07:00 Intake Total 1350 ml 1300 ml 400 ml Output Total 500 ml 1200 ml Balance 1350 ml 800 ml -800 ml medications Current Medications Medications Dose Ordered Sig/Ankur Route Start Time Stop Time Status Last Admin Dose Admin Gabapentin 300 mg TID PO 05/18/25 06:00 06/01/25 06:21 300 MG Clopidogrel Bisulfate 75 mg DAILY PO 05/18/25 10:00 05/31/25 11:15 75 MG Ondansetron HCl 4 mg Q4HP PRN IV 05/18/25 04:45 Nitroglycerin 0.4 mg Q5MINP PRN SL 05/18/25 04:45 Levalbuterol HCl 1.25 mg Q6HR NEB 05/18/25 12:00 06/01/25 06:36 1.25 MG Ipratropium [place] 0.5 mg Q6HR NEB 05/18/25 12:00 06/01/25 06:36 0.5 MG Pantoprazole Sodium 40 mg DAILY IV 05/19/25 10:00 05/31/25 11:13 40 MG Nystatin 1 applic BID TOP 05/20/25 10:00 05/30/25 21:06 1 APPLIC Bumetanide 2 mg BIDD IV 05/20/25 18:00 Cancel Amiodarone HCl 200 mg DAILY PO 05/23/25 10:00 05/31/25 11:13 200 MG Atorvastatin Calcium 40 mg HS GT 05/22/25 22:00 12/3/25 21:09 40 MG Insulin Glargine 20 units HS SC 05/24/25 22:00 05/31/25 21:20 20 UNITS Micafungin Sodium 100 mg/Sodium Chloride 100 ml @ 100 mls/hr DAILY@0800 IV 05/24/25 15:00 06/01/25 08:24 100 MLS/HR Hydralazine HCl 10 mg Q6HR PRN IV 05/28/25 06:00 05/30/25 15:25 10 MG Enoxaparin Sodium 80 mg BID SC 05/28/25 22:00 05/31/25 21:09 80 MG Amlodipine Besylate 5 mg DAILY PO 05/30/25 10:00 05/31/25 11:15 5 MG Cefepime HCl 50 ml @ 12.5 mls/hr Q12HR IV 05/30/25 22:00 05/31/25 21:10 12.5 MLS/HR Acetaminophen 650 mg Q6HP PRN PO 05/31/25 08:00 05/31/25 20:48 650 MG Furosemide 20 mg DAILY PO 05/31/25 10:00 05/31/25 11:14 20 MG Diagnostic Test (Pha) 1 strip ACHS 05/31/25 11:30 06/01/25 06:21 1 STRIP Insulin Human Regular ACHS SC 05/31/25 11:30 05/31/25 21:21 6 UNITS Dextrose 50 ml UD PRN IV 05/31/25 08:15 Examination: LUNGS:Normal, CVS:Normal, MSK:Normal laboratory and microbiology Laboratory Tests 06/01/25 04:57 05/31/25 05:18 Test 06/01/25 04:57 Range/Units Serum Glucose 90 74-106 mg/dL Microbiology Date/Time Source Procedure Growth Status 05/22/25 20:31 Bronchial Washings Gram Stain - Final Complete 05/22/25 20:31 Respiratory Culture - Final Yeast, not [place] albicans Complete 05/19/25 18:40 Nose MRSA Screen - Final Complete 05/18/25 03:07 Blood Blood Culture - Final NO GROWTH AFTER 5 DAYS OF INCUBATION. Complete Problem List/Assessment/Plan Problem List/Assessment/Plan Acute kidney injury superimposed Chronic Kidney Disease secondary hemodynamic mediated Acute hypoxic respiratory failure, patient is a extubated Pneumonia Septic shock, resolved Congestive heart failure exacerbation AFib Diabetes mellitus type 2 Hypoalbuminemia Anemia of chronic kidney disease Hypokalemia Hypernatremia due to insensible water loss Recommendations Kidney function slightly worsened today Increased urine output Casarez catheter Strict I&Os KCL replacement IV antibiotics ^H2O intake Insulin sliding scale We will continue to follow up Plan discussed with: Patient Dietary Evaluation Review Comments: Nutrition Recommendation: 1) EN Glucerna 1.2Cal @ 40ml/hr x 24hr (goal) along with Pro-stat 1 pk TID. TF at goal volume along with Propofol & Pro-stat provide 1589 kcal (100%), 103 gm protein (100%), and 773 ml free water. 2) Consider TPN/PN if NPO>7 days 3) [place] 1 pk BID for DFU wound healing 4) Monitor NPO status, lab values, weight trend, and I/O Expected Outcomes/Goals: Wound to improve Intake to meet >75% estimated needs Lab values to improve FU 2-3 days Fluid Accumulation (Non Severe: Mild fluid retention Protein Calorie Malnutrition: N/A Is there a minimum of two crit: JACINTA Patel MD Jun 01, 2025 09:50
--- NOTE | 2025-06-01 12:41 | DVHPN2 ---
Subjective Patient denies any symptoms at this time. Reviewed: Care Plan, H&P, Labs, Medications, Previous Orders, Radiology, Other (Consultations) Changes from previous H/P or p: No Changes General: Per HPI Objective Vitals Vital Signs Date Time Temp Pulse Resp B/P (MAP) Pulse Ox O2 Delivery O2 Flow Rate FiO2 06/01/25 12:08 77 16 100 06/01/25 12:02 Room Air* 0 21 06/01/25 12:00 98.7 153/72 (99) 98.7 Intake/Output Intake and Output 06/01/25 07:00 Intake Total 3050 ml Output Total 1700 ml Balance 1350 ml Intake Oral 2900 ml IV Total 150 ml Output Urine Total 1700 ml # Bowel Movements 2 General Appearance: Alert, Oriented X3, Cooperative, No acute distress HEENT: Atraumatic, PERRLA, Other (Central line in place) Lungs: Clear to auscultation, Normal air movement Cardiovascular: Regular rate, Normal S1, Normal S2 Abdomen: Normal bowel sounds, Soft Genitourinary: No Apparent Abnormalities (Nogueira catheter), Other (Nogueira's) Musculoskeletal: Normal sensory function, Normal motor function Neuro: Normal speech, Other (Intubated and sedated) Skin: Dry, Intact, Other (Stage I-II ulcer on the lateral aspect of the 1st metatarsophalangeal joint of the right side; present on admission; no discharge/bleeding) Psych/Mental Status: Mental status NL, Mood NL Medications Current Medications Medications Dose Ordered Sig/Ankur Route Start Time Stop Time Status Last Admin Dose Admin Gabapentin 300 mg TID PO 05/18/25 06:00 06/01/25 06:21 300 MG Clopidogrel Bisulfate 75 mg DAILY PO 05/18/25 10:00 06/01/25 09:44 75 MG Ondansetron HCl 4 mg Q4HP PRN IV 05/18/25 04:45 Nitroglycerin 0.4 mg Q5MINP PRN SL 05/18/25 04:45 Levalbuterol HCl 1.25 mg Q6HR NEB 05/18/25 12:00 06/01/25 12:02 1.25 MG Ipratropium [place] 0.5 mg Q6HR NEB 05/18/25 12:00 06/01/25 12:02 0.5 MG Pantoprazole Sodium 40 mg DAILY IV 05/19/25 10:00 06/01/25 09:43 40 MG Nystatin 1 applic BID TOP 05/20/25 10:00 05/30/25 21:06 1 APPLIC Bumetanide 2 mg BIDD IV 05/20/25 18:00 Cancel Amiodarone HCl 200 mg DAILY PO 05/23/25 10:00 06/01/25 09:42 200 MG Atorvastatin Calcium 40 mg HS GT 05/22/25 22:00 05/31/25 21:09 40 MG Insulin Glargine 20 units HS SC 05/24/25 22:00 05/31/25 21:20 20 UNITS Micafungin Sodium 100 mg/Sodium Chloride 100 ml @ 100 mls/hr DAILY@0800 IV 05/24/25 15:00 06/01/25 08:24 100 MLS/HR Hydralazine HCl 10 mg Q6HR PRN IV 05/28/25 06:00 05/30/25 15:25 10 MG Enoxaparin Sodium 80 mg BID SC 05/28/25 22:00 06/01/25 09:45 80 MG Amlodipine Besylate 5 mg DAILY PO 05/30/25 10:00 06/01/25 09:43 5 MG Cefepime HCl 50 ml @ 12.5 mls/hr Q12HR IV 05/30/25 22:00 06/01/25 09:39 12.5 MLS/HR Acetaminophen 650 mg Q6HP PRN PO 05/31/25 08:00 05/31/25 20:48 650 MG Furosemide 20 mg DAILY PO 05/31/25 10:00 06/01/25 09:43 20 MG Diagnostic Test (Pha) 1 strip ACHS 05/31/25 11:30 06/01/25 11:56 1 STRIP Insulin Human Regular ACHS SC 05/31/25 11:30 05/31/25 21:21 6 UNITS Dextrose 50 ml UD PRN IV 05/31/25 08:15 Laboratory Results Laboratory Tests 05/31/25 05:18 06/01/25 04:57 Chemistry Test 06/01/25 04:57 Calcium Level 8.6 mg/dL (8.7-10.4) L Magnesium Level 2.0 mg/dL (1.6-2.6) Urinalysis Test 05/24/25 20:00 Urine Color Colorless (Yellow) Urine Clarity Clear (Clear) Urine pH 5.0 (5.0-9.0) Urine Specific [place] 1.012 (1.001-1.035) Urine Protein Negative (Negative) Urine Ketones Negative (Negative) Urine Blood Negative /uL (Negative) Urine Nitrite Negative (Negative) Urine Bilirubin Negative (Negative) Urine Urobilinogen Normal mg/dL (Negative) Urine Leukocyte Esterase 3+ /uL (Negative) Urine RBC 4 /hpf (0 - 3) Urine Microscopic WBC 61 /HPF (0-3) H Urine Squamous Epithelial Cells Few /hpf (<5) Urine Amorphous Crystals Few /hpf (None Seen) Urine Bacteria Few /hpf (None Seen) H Urine Mucus Few (None Seen) Urine Creatinine 28.69 mg/dL (30.0-125.0) L Urine Protein/Creatinine Ratio 0.86 Urine Sodium 96 mmol/L (40-220) Urine Glucose Normal mg/dL (Normal) Urine Total Protein 24.7 mg/dL (1-14) H Microbiology Microbiology Date/Time Source Procedure Growth Status 05/22/25 20:31 Bronchial Washings Gram Stain - Final Complete 05/22/25 20:31 Respiratory Culture - Final Yeast, not [place] albicans Complete 05/19/25 18:40 Nose MRSA Screen - Final Complete 05/18/25 03:07 Blood Blood Culture - Final NO GROWTH AFTER 5 DAYS OF INCUBATION. Complete Labs and/or images reviewed: Labs reviewed by me, Image(s) reviewed by me Assessment/Plan Assessment/Plan Impression: -Acute Hypoxic Respiratory Failure -CAD with previous CABG -DM -Community Acquired PNA, Gram +/ Gram - -? hx of Afib -NSTEMI ? type II -Sepsis -acute on chronic diastolic heart failure Plan: Events: Patient A&O x4. Noted to be sitting in a chair without any respiratory difficulties. No events overnight. -antibiotics: Continue cefepime and micafungin -bronchodilators -potassium replete -nephrology consultation: Potassium replacement -anticoagulation per Cardiology -swallow evaluation pending -PPI -physical therapy -repeat labs and chest x-ray Critical care time spent with patient discussing and formulating plan of care: 40 minutes. This does not include time spent performing procedures. This medical document was created using an electronic medical record system with [employer] system. Although this document has been carefully reviewed, there may still be some phonetic and typographical errors. These areas are purely typographical due to imperfections of the software programs, and do not reflect any compromise in the patient's medical care. Plan discussed with: Patient My Orders Orders - CRISTIAN BUTT NP Procedure Category Date Status Time Full Liq Diet DIET 05/31/25 Transmitted Dinner Date of Service: Jun 01, 2025 Billing Provider: CRISTIAN BUTT NP Common Visit Codes: [id number] INP/OBS CARE(HIGH) CRISTIAN BUTT NP Jun 01, 2025 12:41
--- NOTE | 2025-06-01 23:41 | DVHINCON2 ---
Date of service: Jun 01, 2025 Referring Physician JOVANY Wu Reason for Consultation Acute hypoxic respiratory failure, pneumonia. History of Present Illness A 70-year-old man with past medical history that includes diabetes mellitus, hypertension, atrial fibrillation, congestive heart failure, pulmonary hypertension and CAD s/p CABG who presented to the emergency department on 05/18/25 for evaluation of shortness of breath. Patient reported a two-day history of worsening shortness of breath with associated chest tightness. Also reported having a nonproductive cough. No fever or chills. On workup, pt was noted to have elevated troponin level. Initial twelve lead electrocardiogram on patient's chart revealed sinus tachycardia with underlying left bundle branch block with baseline wander in multiple leads (left bundle branch block seen in previous EKG's seen via cardio kitchen food server system). Initial troponin level of 18ng/L with significant up trend and peak level at 766ng/L. The patient denied any chest pain. While in ED, patient was found to have increasing oxygen requirements and was placed on bipap 12/6, FiO2 100%. Patient continued to decline and was intubated and required mechanical ventilation. Chest x-ray showed fluffy opacities suggestive of pneumonia vs pulmonary edema. Patient was admitted for further care. Patient is currently on room air. Pulmonary consultation is requested for evaluation and management of acute hypoxic respiratory failure and pneumonia. Review of Systems: 14-point review of systems negative unless otherwise noted above. Past Medical History Severe coronary artery disease s/p triple-vessel CABG on 01/16/2025 (on ASA), congestive heart failure, peripheral arterial disease, hypertension, atrial fibrillation, dyslipidemia, pulmonary hypertension, insulin-dependent type 2 diabetes mellitus, history of CVA without residual deficit. Pt follows up with a durable medical equipment repairer in the outpatient setting, unsure of name. Past Surgical History Triple-vessel CABG on 01/16/2025 at [facility] STUDENT of right peroneal artery on 04/24/2025 Medications: Reviewed. Allergies: No known drug allergies. Family History: Diabetes mellitus. Social History: Nonsmoker. No alcohol or illicit drug use. Family History: Diabetes mellitus G8 MOTHER, G8 FATHER, Allergies: Coded Allergies: NO KNOWN ALLERGIES (Unverified , 11/10/24) Home Meds Reported Medications Amiodarone Hcl (Amiodarone Hcl) 200 Mg Tab, 200 MG PO Q12HR for 30 Days 11/16/25 Furosemide (Furosemide) 40 Mg Tab, 40 MG PO BIDD for 30 Days, MG 05/14/25 Lansoprazole (Lansoprazole) 30 Mg Cap, 1 CAP PO DAILY, #30 CAP 5 Refills 05/14/25 Apixaban Base (ELIQUIS) 5 Mg Tab, 5 MG PO BID, TAB 05/14/25 Metformin Hydrochloride (Metformin Hcl) 1,000 Mg Tab, 1 TAB PO BIDWM for DIABETES TAKE WITH MORNING AND EVENING MEALS 01/09/25 Insulin Glargine (Lantus Solostar) 100 Unit/Ml Inj, 30 UNIT SC QPM for DIABETES 01/09/25 Gabapentin (Gabapentin) 100 Mg Cap, 1 CAP PO HS for NEUROPATHY 01/09/25 Ferrous Sulfate Dried (Iron High Potency) 65 Mg Tab, 1 TAB PO BID for SUPPLEMENT 01/09/25 Cholecalciferol (Vitamin D3) 1,000 Unit Cap, 1 CAP PO DAILY for SUPPLEMENT 01/09/25 Amlodipine Besylate (Amlodipine Besylate) 10 Mg Tab, 1 TAB PO QAM for HYPERTENSION 01/09/25 Aspirin (Aspirin Low Dose) 81 Mg Chw, 1 TAB PO DAILY for HEART ATTACK PREVENTION 10/15/23 Insulin Glargine (Lantus Solostar) 100 Unit/Ml Inj, 20 UNIT SC QAM for DIABETES 10/15/23 Atorvastatin Calcium (Lipitor) 40 Mg Tab, 1 TAB PO HS for HIGH CHOLESTEROL 10/15/23 Losartan Potassium (Losartan Potassium) 100 Mg Tab, 1 TAB PO QAM for HYPERTENSION 10/15/23 Glimepiride (Glimepiride) 4 Mg Tab, 1 TAB PO BID for DIABETES 10/15/23 Vital Signs Vital Signs Date Time Temp Pulse Resp B/P (MAP) Pulse Ox O2 Delivery O2 Flow Rate FiO2 06/01/25 22:00 84 14 139/85 (103) 95 06/01/25 22:00 Room Air* 0 21 06/01/25 20:00 98.4 98.4 Physical Exam Gen.: Patient lying in bed in no apparent distress. Breathing on room air. Head: Normocephalic, atraumatic. Eyes: EOMI/PERRLA. Ears: Normal hearing. Normal anatomy. Neck/trachea: Trachea midline, supple. Nose: Normal external anatomy. Mouth: Moist mucous membranes. Chest: Decreased air entry bilaterally. No wheezing or rhonchi. Cardiovascular: Positive S1, positive S2. Regular rate and rhythm. Abdomen: Positive bowel sounds in all 4 quadrants. Soft, non-tender, non-diste nded. : Deferred. Rectal: Deferred. Skin: Warm, dry. Intact. Extremities: 2+ radial pulses bilaterally. No lower extremity edema. Neuro: Awake, alert, oriented x3. No gross motor or sensory deficits. Cranial nerves II through XII intact. Gait not assessed. Labs/Diagnostic Data Labs Test 06/01/25 04:57 05/31/25 05:18 05/29/25 13:40 05/29/25 06:55 Range/Units Sodium Level 146 H 136-145 mmol/L Potassium Level 3.7 3.5-5.1 mmol/L Chloride Level 109 H 98-107 mmol/L Carbon Dioxide Level 25 20-31 mmol/L Anion Gap 12 5-15 Blood Urea Nitrogen 17 9-23 mg/dL Creatinine 1.29 0.700-1.30 mg/dL Glomerular Filtration Rate Calc 59 >90 mL/min BUN/Creatinine Ratio 13.2 10.0-20.0 Serum Glucose 90 74-106 mg/dL Calcium Level 8.6 L 8.7-10.4 mg/dL Magnesium Level 2.0 1.6-2.6 mg/dL White Blood Count 10.9 H 4.4-10.8 10^3/uL Red Blood Count 3.75 L 4.5-5.90 10^6/uL Hemoglobin 10.2 L 13.5-17.5 g/dL Hematocrit 31.3 L 41.0-53.0 % Mean Corpuscular Volume 83.5 80.0-100.0 fL Mean Corpuscular Hemoglobin 27.2 L 28.0-32.0 pg Mean Corpuscular Hemoglobin Concent 32.6 32.0-36.0 g/dL Red Cell Distribution Width 16.5 H 11.8-14.3 % Platelet Count 310 140-450 10^3/uL Mean Platelet Volume 8.3 6.9-10.8 fL Neutrophils (%) (Auto) 72.4 37.0-80.0 % Lymphocytes (%) (Auto) 14.0 10.0-50.0 % Monocytes (%) (Auto) 9.5 0.0-12.0 % Eosinophils (%) (Auto) 3.9 0.0-7.0 % Basophils (%) (Auto) 0.2 0.0-2.0 % Neutrophils # (Auto) 7.9 1.6-8.6 10 ^3/uL Lymphocytes # (Auto) 1.5 0.4-5.4 10 ^3/uL Monocytes # (Auto) 1.0 0-1.3 10 ^3/uL Eosinophils # (Auto) 0.4 0-0.8 10 ^3/uL Basophils # (Auto) 0 0-0.2 10 ^3/uL Nucleated Red Blood Cells 0.1 % Total Bilirubin 0.4 0.2-1.0 mg/dL Aspartate Amino Transferase (AST) 31 13-40 U/L Alanine Aminotransferase (ALT) 40 7-40 U/L Alkaline Phosphatase 92 46-116 U/L Total Protein 5.9 5.7-8.2 g/dL Albumin 3.3 3.2-4.8 g/dL Blood Gas Specimen Type Arterial Blood Gas Sample Site Right radial Blood Gas Patient Temperature 37.0 Arterial Blood Date Drawn [id number] Arterial Blood pH 7.424 7.350-7.450 Arterial Blood Partial Pressure CO2 29.8 L 35.0-48.0 mmHg Arterial Blood Partial Pressure O2 78.3 L 83.0-108.0 mmHg Arterial Blood HCO3 19.1 L 21.0-28.0 mmol/L Arterial Blood Oxygen Saturation 94.6 94.0-98.0 % Arterial Blood Base Excess -4.4 L -2.0-3.0 mmol/L Arterial Blood Oxyhemoglobin 94.1 94.0-98.0 % Arterial Blood Carboxyhemoglobin 0.3 L 0.5-1.5 % Arterial Blood Methemoglobin 0.2 0.0-1.5 % Arterial Blood Deoxyhemoglobin 5.4 H 0.0-5.0 % Indra Test Modified Blood Gas Total Hemoglobin 10.90 L 13.5-17.5 g/dL Blood Gas Modality Vent - cpap FiO2 % 30.0 Blood Gas PEEP or CPAP 5.0 Mixed Venous Blood pH 7.452 H 7.310-7.450 Mixed Venous Blood PO2 38.3 35.0-45.0 mmHg Mixed Venous Blood O2 Saturation 69.7 L 75.0-99.0 % Mixed Venous Blood Oxyhemoglobin 69.1 60.0-80.0 % Mixed Venous Bld Carboxyhemoglobin 0.7 0.0-3.9 % Mixed Venous Blood Methemoglobin 0.2 0.0-0.5 % Mixed Venous Blood Deoxyhemoglobin 30.0 H 0.0-5.0 % Blood Gas Set Respiration Rate 20.0 Blood Gas Tidal Volume 550.0 Blood Gas Critical Value Read Back yes Blood Gas Notified Whom katherine ricks Blood Gas Notified Time [id number] Blood Gas Notified By sylvia salon coordinator Test 05/28/25 07:38 05/27/25 10:05 05/24/25 20:00 05/24/25 13:04 Range/Units Blood Gas Comments Blood Gas Spontaneous Rate 22 Blood Gas Pressure Support 8 Urine Color Colorless Yellow Urine Clarity Clear Clear Urine pH 5.0 5.0-9.0 Urine Specific [place] 1.012 1.001-1.035 Urine Protein Negative Negative Urine Ketones Negative Negative Urine Blood Negative Negative /uL Urine Nitrite Negative Negative Urine Bilirubin Negative Negative Urine Urobilinogen Normal Negative mg/dL Urine Leukocyte Esterase 3+ Negative /uL Urine RBC 4 0 - 3 /hpf Urine Microscopic WBC 61 H 0-3 /HPF Urine Squamous Epithelial Cells Few <5 /hpf Urine Amorphous Crystals Few None Seen /hpf Urine Bacteria Few H None Seen /hpf Urine Mucus Few None Seen Urine Creatinine 28.69 L 30.0-125.0 mg/dL Urine Protein/Creatinine Ratio 0.86 Urine Sodium 96 40-220 mmol/L Urine Glucose Normal Normal mg/dL Urine Total Protein 24.7 H 1-14 mg/dL Vitamin D 25-Hydroxy 40.6 30.0-100 ng/mL Hepatitis B Surface Antigen Negative Negative Hepatitis C Antibody Negative Negative Test 05/24/25 03:01 05/21/25 09:28 05/20/25 11:46 05/19/25 06:40 Range/Units Phosphorus Level 4.8 2.4-5.1 mg/dL Parathyroid Hormone (Intact) 164.3 H 18.4-80.1 pg/mL Blood Gas Spontaneous Tidal Volume 625 Blood Gas Inspiratory Pressure 20.0 Bl Gas Inspiratory/Expiratory Ratio 1:1.0 POC Glucose 195 H 70-106 mg/dl Blood Gas EPAP 6 Blood Gas IPAP 12 Test 05/18/25 14:43 05/18/25 04:57 05/18/25 04:50 05/18/25 03:05 Range/Units Troponin I High Sensitivity 559 *H </=54 ng/L Lactic Acid Level 3.2 *H 0.4-2.0 mmol/L D-Dimer, Quantitative 3.05 H 0.0-0.49 mg/L FEU Influenza Type A Antigen Negative Negative Influenza Type B Antigen Negative Negative SARS-CoV-2 Antigen (Rapid) Negative NEGATIVE Test 05/18/25 02:50 Range/Units Hemoglobin A1c 7.2 H <5.7 % A1C B-Type Natriuretic Peptide 549.46 0-100 pg/mL Microbiology Date/Time Source Procedure Growth Status 05/22/25 20:31 Bronchial Washings Gram Stain - Final Complete 05/22/25 20:31 Respiratory Culture - Final Yeast, not Carolina albicans Complete 05/19/25 18:40 Nose MRSA Screen - Final Complete 05/18/25 03:07 Blood Blood Culture - Final NO GROWTH AFTER 5 DAYS OF INCUBATION. Complete Assessment Impression: Acute hypoxic respiratory failure, resolved Pneumonia Diastolic congestive heart failure Pulmonary edema Acute kidney injury Obesity Plan: On room air Supplemental oxygen PRN Titrate to keep O2 sats above 92%. CXR reviewed, demonstrates unchanged pulmonary vascular congestion. Unchanged possible left lower lobe airspace disease or atelectasis. Possible trace left pleural effusion. No pneumothorax. Cardiomegaly. Continue antibiotics Incentive spirometry On Plavix Follow up Cardiology recs Continue Lasix to maintain euvolemia Monitor renal function. Monitor electrolytes. Supplement as necessary. Monitor ins and outs. Recommend diet and lifestyle modifications for weight reduction Obesity complicates all care DVT prophylaxis - Lovenox. Prognosis: Poor given patient's multiple co-morbidities. Rest of plan per hospitalist and other consultants. A total of 76 minutes of clinical care time was spent reviewing the patient record, examining the patient, making a diagnostic and therapeutic plan, discussing this plan with the medical personnel, following up on diagnostic studies and following the patient for clinical stability excluding any and all procedures. At least 50% of this time was spent in direct, [id number] contact. Thank you, JOVANY Wu, for allowing me to participate in this patient's care. Further recommendations will depend on the patient's clinical course. Please do not hesitate to contact me if you have any questions or concerns. This medical document was created using an electronic medical record system with [employer] computerized dictation system. Although these documentations are being carefully reviewed, there may still be some phonetic and typographical changes. The errors are purely typographical, due to imperfection on the software program, and do not reflect any compromise in the patient's medical care. Plan discussed with: Patient, Other (HARSHAD Urbina) Visit Coding Pulmonary Billing Provider: AUSTIN SINGH MD Date of Service if different f: Jun 01, 2025 Common Visit Codes: [id number] INP/OBS CARE (HIGH) AUSTIN SINGH MD Jun 01, 2025 23:41
[2025-06-02] VITALS (32 sets, daily range): BP systolic 117–165; BP diastolic 57–79; PULSE 71–89; RESP 12–22; TEMP 98–98.3; O2SAT 91–100
[2025-06-02 05:42] LABS: Hematocrit 34.1 % (41.0-53.0); Hemoglobin 11.4 g/dL (13.5-17.5); Mean Corpuscular Hemoglobin 27.7 pg (28.0-32.0); Mean Corpuscular Volume 82.7 fL (80.0-100.0); Nucleated Red Blood Cells % 0.0 %
[2025-06-02 05:59] LABS: Albumin 3.6 g/dL (3.2-4.8); Alkaline Phosphatase 109 U/L (46-116); Anion Gap 10 (5-15); BUN/Creatinine Ratio 10.0 (10.0-20.0); Blood Urea Nitrogen 14 mg/dL (9-23); Carbon Dioxide 27 mmol/L (20-31); Chloride 106 mmol/L (98-107); Sodium 143 mmol/L (136-145); Total Protein 6.2 g/dL (5.7-8.2)
[2025-06-02 06:00] LABS: Bilirubin, Total 0.4 mg/dL (0.2-1.0)
[2025-06-02 06:05] LABS: Alanine Aminotransferase 55 U/L (7-40); Calcium 8.6 mg/dL (8.7-10.4); Glucose 73 mg/dL (74-106); Potassium 3.4 mmol/L (3.5-5.1)
[2025-06-02] MEDS: POTASSIUM CHL 20MEQ/100ML 100 ML IV SCH (06:56)
--- NOTE | 2025-06-02 10:47 | DVHPN2 ---
Progress Note Date Seen: Jun 02, 2025 Has the PT tested + for MRSA If YES, has PT been informed?: No Medical Necessity Reason Pt with a Central, PICC or Fol: Yes The following are medically ne: Central Line, Casarez Catheter Reason for casarez catheter: Strict I&O Subjective Patient reports: No new complaints Other Systems: Patient seen and examined by myself today in follow-up Objective vital signs Vital Sign Date Time Temp Pulse Resp B/P (MAP) Pulse Ox O2 Delivery O2 Flow Rate FiO2 06/02/25 10:26 121/61 06/02/25 08:52 72 14 92 06/02/25 08:00 Room Air* 0 21 06/02/25 04:00 98.0 98.0 Total Intake and Output 06/01/25 06/01/25 06/02/25 15:00 23:00 07:00 Intake Total 150 ml 290 ml 100 ml Output Total 1150 ml 2000 ml Balance 150 ml -860 ml -1900 ml medications Current Medications Medications Dose Ordered Sig/Ankur Route Start Time Stop Time Status Last Admin Dose Admin Gabapentin 300 mg TID PO 05/18/25 06:00 06/02/25 05:19 300 MG Clopidogrel Bisulfate 75 mg DAILY PO 05/18/25 10:00 06/02/25 10:25 75 MG Ondansetron HCl 4 mg Q4HP PRN IV 05/18/25 04:45 Nitroglycerin 0.4 mg Q5MINP PRN SL 05/18/25 04:45 Levalbuterol HCl 1.25 mg Q6HR NEB 05/18/25 12:00 06/02/25 06:41 1.25 MG Ipratropium [place] 0.5 mg Q6HR NEB 05/18/25 12:00 06/02/25 06:41 0.5 MG Pantoprazole Sodium 40 mg DAILY IV 05/19/25 10:00 06/02/25 10:25 40 MG Nystatin 1 applic BID TOP 05/20/25 10:00 06/02/25 10:26 1 APPLIC Bumetanide 2 mg BIDD IV 05/20/25 18:00 Cancel Amiodarone HCl 200 mg DAILY PO 05/23/25 10:00 06/02/25 10:25 200 MG Atorvastatin Calcium 40 mg HS GT 05/22/25 22:00 06/01/25 21:28 40 MG Insulin Glargine 20 units HS SC 05/24/25 22:00 06/01/25 21:52 20 UNITS Micafungin Sodium 100 mg/Sodium Chloride 100 ml @ 100 mls/hr DAILY@0800 IV 05/24/25 15:00 06/02/25 10:23 100 MLS/HR Hydralazine HCl 10 mg Q6HR PRN IV 05/28/25 06:00 06/01/25 16:51 10 MG Enoxaparin Sodium 80 mg BID SC 05/28/25 22:00 06/02/25 10:26 80 MG Amlodipine Besylate 5 mg DAILY PO 05/30/25 10:00 06/02/25 10:26 5 MG Cefepime HCl 50 ml @ 12.5 mls/hr Q12HR IV 05/30/25 22:00 06/02/25 10:24 12.5 MLS/HR Acetaminophen 650 mg Q6HP PRN PO 05/31/25 08:00 06/02/25 10:26 650 MG Furosemide 20 mg DAILY PO 05/31/25 10:00 06/02/25 10:25 20 MG Diagnostic Test (Pha) 1 strip ACHS 05/31/25 11:30 06/02/25 06:14 1 STRIP Insulin Human Regular ACHS SC 05/31/25 11:30 06/01/25 21:51 3 UNITS Dextrose 50 ml UD PRN IV 05/31/25 08:15 Examination: LUNGS:Normal, CVS:Normal, MSK:Normal laboratory and microbiology Laboratory Tests 06/02/25 05:22 Test 06/02/25 05:22 Range/Units Serum Glucose 73 L 74-106 mg/dL Microbiology Date/Time Source Procedure Growth Status 05/22/25 20:31 Bronchial Washings Gram Stain - Final Complete 05/22/25 20:31 Respiratory Culture - Final Yeast, not Carolina albicans Complete 05/19/25 18:40 Nose MRSA Screen - Final Complete 05/18/25 03:07 Blood Blood Culture - Final NO GROWTH AFTER 5 DAYS OF INCUBATION. Complete Problem List/Assessment/Plan Problem List/Assessment/Plan Acute kidney injury superimposed Chronic Kidney Disease secondary hemodynamic mediated Acute hypoxic respiratory failure, extubated Pneumonia Septic shock, resolved Congestive heart failure exacerbation AFib Diabetes mellitus type 2 Hypoalbuminemia Anemia of chronic kidney disease Hypokalemia Hypernatremia due to insensible water loss Recommendations Kidney function slightly worsened today Increased urine output Casarez catheter Strict I&Os KCL replacement DC furosemide IV antibiotics ^H2O intake Insulin sliding scale We will continue to follow up Plan discussed with: Patient Dietary Evaluation Review Comments: Nutrition Recommendation: 1) EN Glucerna 1.2Cal @ 40ml/hr x 24hr (goal) along with Pro-stat 1 pk TID. TF at goal volume along with Propofol & Pro-stat provide 1589 kcal (100%), 103 gm protein (100%), and 773 ml free water. 2) Consider TPN/PN if NPO>7 days 3) Gordon 1 pk BID for DFU wound healing 4) Monitor NPO status, lab values, weight trend, and I/O Expected Outcomes/Goals: Wound to improve Intake to meet >75% estimated needs Lab values to improve FU 2-3 days Fluid Accumulation (Non Severe: Mild fluid retention Protein Calorie Malnutrition: N/A Is there a minimum of two crit: JACINTA Patel MD Jun 02, 2025 10:47
[2025-06-02] MEDS ORDERED: ACETYLCYSTEINE 10 %(100MG/ML) SOL 4ML NEB SCH (12:00)
[2025-06-02] MEDS: INSULIN LANTUS (GLARGINE) 1 /0.01ml (100units/ml) SC SCH (13:00)
--- NOTE | 2025-06-02 13:05 | DVHPN2 ---
Subjective Patient denies any symptoms at this time. Reviewed: Care Plan, H&P, Labs, Medications, Previous Orders, Radiology, Other (Consultations) Changes from previous H/P or p: No Changes General: Per HPI Objective Vitals Vital Signs Date Time Temp Pulse Resp B/P (MAP) Pulse Ox O2 Delivery O2 Flow Rate FiO2 06/02/25 11:17 95 Room Air* 0 21 06/02/25 11:17 77 18 06/02/25 10:26 121/61 06/02/25 04:00 98.0 98.0 Intake/Output Intake and Output 06/02/25 07:00 Intake Total 540 ml Output Total 3150 ml Balance -2610 ml Intake Oral 340 ml IV Total 200 ml Output Urine Total 3150 ml # Bowel Movements 4 General Appearance: Alert, Oriented X3, Cooperative, No acute distress HEENT: Atraumatic, PERRLA, Other (Central line in place) Lungs: Clear to auscultation, Normal air movement Cardiovascular: Regular rate, Normal S1, Normal S2 Abdomen: Normal bowel sounds, Soft Genitourinary: No Apparent Abnormalities (Nogueira catheter), Other (Nogueira's) Musculoskeletal: Normal sensory function, Normal motor function Neuro: Normal speech, Other (Intubated and sedated) Skin: Dry, Intact, Other (Stage I-II ulcer on the lateral aspect of the 1st metatarsophalangeal joint of the right side; present on admission; no discharge/bleeding) Psych/Mental Status: Mental status NL, Mood NL Medications Current Medications Medications Dose Ordered Sig/Ankur Route Start Time Stop Time Status Last Admin Dose Admin Gabapentin 300 mg TID PO 05/18/25 06:00 06/02/25 05:19 300 MG Clopidogrel Bisulfate 75 mg DAILY PO 05/18/25 10:00 06/02/25 10:25 75 MG Ondansetron HCl 4 mg Q4HP PRN IV 05/18/25 04:45 Nitroglycerin 0.4 mg Q5MINP PRN SL 05/18/25 04:45 Levalbuterol HCl 1.25 mg Q6HR NEB 05/18/25 12:00 06/02/25 11:17 1.25 MG Ipratropium [place] 0.5 mg Q6HR NEB 05/18/25 12:00 06/02/25 11:17 0.5 MG Pantoprazole Sodium 40 mg DAILY IV 05/19/25 10:00 06/02/25 10:25 40 MG Nystatin 1 applic BID TOP 05/20/25 10:00 06/02/25 10:26 1 APPLIC Bumetanide 2 mg BIDD IV 05/20/25 18:00 Cancel Amiodarone HCl 200 mg DAILY PO 05/23/25 10:00 06/02/25 10:25 200 MG Atorvastatin Calcium 40 mg HS GT 05/22/25 22:00 06/01/25 21:28 40 MG Insulin Glargine 20 units HS SC 05/24/25 22:00 06/01/25 21:52 20 UNITS Micafungin Sodium 100 mg/Sodium Chloride 100 ml @ 100 mls/hr DAILY@0800 IV 05/24/25 15:00 06/02/25 10:23 100 MLS/HR Hydralazine HCl 10 mg Q6HR PRN IV 05/28/25 06:00 06/01/25 16:51 10 MG Enoxaparin Sodium 80 mg BID SC 05/28/25 22:00 06/02/25 10:26 80 MG Amlodipine Besylate 5 mg DAILY PO 05/30/25 10:00 06/02/25 10:26 5 MG Cefepime HCl 50 ml @ 12.5 mls/hr Q12HR IV 05/30/25 22:00 06/02/25 10:24 12.5 MLS/HR Acetaminophen 650 mg Q6HP PRN PO 05/31/25 08:00 06/02/25 10:26 650 MG Diagnostic Test (Pha) 1 strip ACHS 05/31/25 11:30 06/02/25 11:30 1 STRIP Insulin Human Regular ACHS SC 05/31/25 11:30 06/01/25 21:51 3 UNITS Dextrose 50 ml UD PRN IV 05/31/25 08:15 Acetylcysteine 100 mg Q6HR NEB 06/02/25 18:00 UNV Laboratory Results Laboratory Tests 06/02/25 05:22 Chemistry Test 06/02/25 05:22 Albumin 3.6 g/dL (3.2-4.8) Calcium Level 8.6 mg/dL (8.7-10.4) L Total Protein 6.2 g/dL (5.7-8.2) LFT Test 06/02/25 05:22 Alanine Aminotransferase (ALT) 55 U/L (7-40) H Alkaline Phosphatase 109 U/L (46-116) Aspartate Amino Transferase (AST) 37 U/L (13-40) Total Bilirubin 0.4 mg/dL (0.2-1.0) Urinalysis Test 05/24/25 20:00 Urine Color Colorless (Yellow) Urine Clarity Clear (Clear) Urine pH 5.0 (5.0-9.0) Urine Specific [place] 1.012 (1.001-1.035) Urine Protein Negative (Negative) Urine Ketones Negative (Negative) Urine Blood Negative /uL (Negative) Urine Nitrite Negative (Negative) Urine Bilirubin Negative (Negative) Urine Urobilinogen Normal mg/dL (Negative) Urine Leukocyte Esterase 3+ /uL (Negative) Urine RBC 4 /hpf (0 - 3) Urine Microscopic WBC 61 /HPF (0-3) H Urine Squamous Epithelial Cells Few /hpf (<5) Urine Amorphous Crystals Few /hpf (None Seen) Urine Bacteria Few /hpf (None Seen) H Urine Mucus Few (None Seen) Urine Creatinine 28.69 mg/dL (30.0-125.0) L Urine Protein/Creatinine Ratio 0.86 Urine Sodium 96 mmol/L (40-220) Urine Glucose Normal mg/dL (Normal) Urine Total Protein 24.7 mg/dL (1-14) H Microbiology Microbiology Date/Time Source Procedure Growth Status 05/22/25 20:31 Bronchial Washings Gram Stain - Final Complete 05/22/25 20:31 Respiratory Culture - Final Yeast, not Carolina albicans Complete 05/19/25 18:40 Nose MRSA Screen - Final Complete 05/18/25 03:07 Blood Blood Culture - Final NO GROWTH AFTER 5 DAYS OF INCUBATION. Complete Labs and/or images reviewed: Labs reviewed by me, Image(s) reviewed by me Assessment/Plan Assessment/Plan Impression: -Acute Hypoxic Respiratory Failure -CAD with previous CABG -DM -Community Acquired PNA, Gram +/ Gram - -? hx of Afib -NSTEMI ? type II -Sepsis -acute on chronic diastolic heart failure Plan: Events: No events overnight -discontinue antibiotic therapy -advanced pureed diet -bronchodilators -stop Lovenox, transitioned to Eliquis -PPI -physical therapy Critical care time spent with patient discussing and formulating plan of care: 40 minutes. This does not include time spent performing procedures. This medical document was created using an electronic medical record system with [employer] computerized dictation system. Although this document has been carefully reviewed, there may still be some phonetic and typographical errors. These areas are purely typographical due to imperfections of the software programs, and do not reflect any compromise in the patient's medical care. Plan discussed with: Patient, Other (RN) My Orders Orders - CRISTIAN BUTT NP Procedure Category Date Status Time Acetylcysteine PHA 06/02/25 Logged Inhalation 10% 18:00 Chest Percussion Tx RT 06/02/25 Logged Initi 12:23 Atorvastatin (Lipitor) PHA 06/02/25 Logged 22:00 Insulin Lantus PHA 06/02/25 Logged (Glargine) (Lantus) 13:00 Cardiac DIET 06/02/25 Transmitted Diet-2gna,Lofat,Lochol Lunch Furosemide Tablet PHA 06/03/25 Transmitted (Lasix Tablet) 10:00 Date of Service: Jun 02, 2025 Billing Provider: CRISTIAN BUTT NP Common Visit Codes: [id number] INP/OBS CARE(HIGH) CRISTIAN BUTT NP Jun 02, 2025 13:05
[2025-06-02] MEDS: ACETYLCYSTEINE 10 %(100MG/ML) SOL 4ML NEB SCH (19:07)
[2025-06-02] MEDS: ATORVASTATIN 20 MG TAB PO SCH (22:02)
--- NOTE | 2025-06-02 22:21 | DVHPN2 ---
Subjective DOS: 06/02/2025 Patient seen and examined at bedside. Breathing comfortably on room air. Overnight events reviewed. Reviewed: Care Plan, H&P, Labs, Medications, Previous Orders, Radiology, Other (Consultations) Changes from previous H/P or p: No Changes General: Per HPI Objective Vitals Vital Signs Date Time Temp Pulse Resp B/P (MAP) Pulse Ox O2 Delivery O2 Flow Rate FiO2 06/02/25 20:00 98.2 81 15 143/67 (92) 95 98.2 06/02/25 20:00 Room Air* 0 21 Intake/Output Intake and Output 06/02/25 07:00 Intake Total 540 ml Output Total 3150 ml Balance -2610 ml Intake Oral 340 ml IV Total 200 ml Output Urine Total 3150 ml # Bowel Movements 4 Exam Gen.: Patient lying in bed in no apparent distress. Breathing on room air. Head: Normocephalic, atraumatic. Eyes: EOMI/PERRLA. Ears: Normal hearing. Normal anatomy. Neck/trachea: Trachea midline, supple. Nose: Normal external anatomy. Mouth: Moist mucous membranes. Chest: Decreased air entry bilaterally. No wheezing or rhonchi. Cardiovascular: Positive S1, positive S2. Regular rate and rhythm. Abdomen: Positive bowel sounds in all 4 quadrants. Soft, non-tender, non- distended. : Deferred. Rectal: Deferred. Skin: Warm, dry. Intact. Extremities: 2+ radial pulses bilaterally. No lower extremity edema. Neuro: Awake, alert, oriented x3. No gross motor or sensory deficits. Cranial nerves II through XII intact. Gait not assessed. General Appearance: Alert, Oriented X3, Cooperative, No acute distress HEENT: Atraumatic, PERRLA, Other (Central line in place) Lungs: Clear to auscultation, Normal air movement Cardiovascular: Regular rate, Normal S1, Normal S2 Abdomen: Normal bowel sounds, Soft Genitourinary: No Apparent Abnormalities (Nogueira catheter), Other (Nogueira's) Musculoskeletal: Normal sensory function, Normal motor function Neuro: Normal speech, Other Skin: Dry, Intact, Other (Stage I-II ulcer on the lateral aspect of the 1st metatarsophalangeal joint of the right side; present on admission; no discharge/bleeding) Psych/Mental Status: Mental status NL, Mood NL Medications Current Medications Medications Dose Ordered Sig/Ankur Route Start Time Stop Time Status Last Admin Dose Admin Gabapentin 300 mg TID PO 05/18/25 06:00 06/02/25 14:00 300 MG Clopidogrel Bisulfate 75 mg DAILY PO 05/18/25 10:00 06/02/25 10:25 75 MG Ondansetron HCl 4 mg Q4HP PRN IV 05/18/25 04:45 Nitroglycerin 0.4 mg Q5MINP PRN SL 05/18/25 04:45 Levalbuterol HCl 1.25 mg Q6HR NEB 05/18/25 12:00 06/02/25 19:08 1.25 MG Ipratropium [place] 0.5 mg Q6HR NEB 05/18/25 12:00 06/02/25 19:07 0.5 MG Pantoprazole Sodium 40 mg DAILY IV 05/19/25 10:00 06/02/25 10:25 40 MG Nystatin 1 applic BID TOP 05/20/25 10:00 06/02/25 10:26 1 APPLIC Bumetanide 2 mg BIDD IV 05/20/25 18:00 Cancel Amiodarone HCl 200 mg DAILY PO 05/23/25 10:00 06/02/25 10:25 200 MG Hydralazine HCl 10 mg Q6HR PRN IV 05/28/25 06:00 06/01/25 16:51 10 MG Amlodipine Besylate 5 mg DAILY PO 05/30/25 10:00 06/02/25 10:26 5 MG Acetaminophen 650 mg Q6HP PRN PO 05/31/25 08:00 06/02/25 10:26 650 MG Diagnostic Test (Pha) 1 strip ACHS 05/31/25 11:30 06/02/25 17:00 1 STRIP Insulin Human Regular ACHS SC 05/31/25 11:30 06/01/25 21:51 3 UNITS Dextrose 50 ml UD PRN IV 05/31/25 08:15 Acetylcysteine 100 mg Q6HR NEB 06/02/25 18:00 06/02/25 19:07 100 MG Atorvastatin Calcium 40 mg HS PO 06/02/25 22:00 Insulin Glargine 15 units HS SC 06/02/25 13:00 Furosemide 20 mg DAILY PO 06/03/25 10:00 Laboratory Results Laboratory Tests 06/02/25 05:22 Chemistry Test 06/02/25 05:22 Albumin 3.6 g/dL (3.2-4.8) Calcium Level 8.6 mg/dL (8.7-10.4) L Total Protein 6.2 g/dL (5.7-8.2) LFT Test 06/02/25 05:22 Alanine Aminotransferase (ALT) 55 U/L (7-40) H Alkaline Phosphatase 109 U/L (46-116) Aspartate Amino Transferase (AST) 37 U/L (13-40) Total Bilirubin 0.4 mg/dL (0.2-1.0) Urinalysis Test 05/24/25 20:00 Urine Color Colorless (Yellow) Urine Clarity Clear (Clear) Urine pH 5.0 (5.0-9.0) Urine Specific [place] 1.012 (1.001-1.035) Urine Protein Negative (Negative) Urine Ketones Negative (Negative) Urine Blood Negative /uL (Negative) Urine Nitrite Negative (Negative) Urine Bilirubin Negative (Negative) Urine Urobilinogen Normal mg/dL (Negative) Urine Leukocyte Esterase 3+ /uL (Negative) Urine RBC 4 /hpf (0 - 3) Urine Microscopic WBC 61 /HPF (0-3) H Urine Squamous Epithelial Cells Few /hpf (<5) Urine Amorphous Crystals Few /hpf (None Seen) Urine Bacteria Few /hpf (None Seen) H Urine Mucus Few (None Seen) Urine Creatinine 28.69 mg/dL (30.0-125.0) L Urine Protein/Creatinine Ratio 0.86 Urine Sodium 96 mmol/L (40-220) Urine Glucose Normal mg/dL (Normal) Urine Total Protein 24.7 mg/dL (1-14) H Microbiology Microbiology Date/Time Source Procedure Growth Status 05/22/25 20:31 Bronchial Washings Gram Stain - Final Complete 05/22/25 20:31 Respiratory Culture - Final Yeast, not Carolina albicans Complete 05/19/25 18:40 Nose MRSA Screen - Final Complete 05/18/25 03:07 Blood Blood Culture - Final NO GROWTH AFTER 5 DAYS OF INCUBATION. Complete Assessment/Plan Assessment/Plan Impression: Acute hypoxic respiratory failure, resolved Pneumonia Diastolic congestive heart failure Pulmonary edema Acute kidney injury Obesity Events: Breathing on room air No distress Supplemental oxygen PRN No acute overnight events. Head of bed elevation Aspiration precautions Continue bronchodilators/Mucomyst Chest physiotherapy Continue antibiotics/antifungal Amiodarone PO Incentive spirometry Continue diuresis with Lasix Monitor renal function. Monitor electrolytes. Supplement as necessary Labs and imaging reviewed. Rest of plan as noted below. Plan: Supplemental oxygen PRN Titrate to keep O2 sats above 92%. CXR on 06/01/25 demonstrates unchanged pulmonary vascular congestion. Unchanged possible left lower lobe airspace disease or atelectasis. Possible trace left pleural effusion. No pneumothorax. Cardiomegaly. Continue antibiotics Incentive spirometry On Plavix Amiodarone PO Follow up Cardiology recs Diurese to euvolemia Monitor renal function. Monitor electrolytes. Supplement as necessary. Monitor ins and outs. Recommend diet and lifestyle modifications for weight reduction Obesity complicates all care DVT prophylaxis - Lovenox. Prognosis: Guarded given patient's multiple co-morbidities. Rest of plan per hospitalist and other consultants. A total of 51 minutes of clinical care time was spent reviewing the patient record, examining the patient, making a diagnostic and therapeutic plan, discussing this plan with the medical personnel, following up on diagnostic studies and following the patient for clinical stability excluding any and all procedures. At least 50% of this time was spent in direct, [id number] contact. Thank you, JOVANY Wu, for allowing me to participate in this patient's care. Further recommendations will depend on the patient's clinical course. Please do not hesitate to contact me if you have any questions or concerns. This medical document was created using an electronic medical record system with [employer] dictation system. Although these documentations are being carefully reviewed, there may still be some phonetic and typographical changes. The errors are purely typographical, due to imperfection on the software program, and do not reflect any compromise in the patient's medical care. Plan discussed with: Patient, Other (HARSHAD Pop) Visit Coding Pulmonary Billing Provider: AUSTIN SINGH MD Date of Service if different f: Jun 02, 2025 Common Visit Codes: [id number] INP/OBS CARE(HIGH) AUSTIN SINGH MD Jun 02, 2025 22:21
[2025-06-03] VITALS (29 sets, daily range): BP systolic 116–159; BP diastolic 60–72; PULSE 66–95; RESP 12–27; TEMP 98.2–98.8; O2SAT 86–100
[2025-06-03] MEDS: FUROSEMIDE 20 MG TAB PO SCH (09:36)
--- NOTE | 2025-06-03 09:53 | DVHPN2 ---
Progress Note Date Seen: Jun 03, 2025 Has the PT tested + for MRSA If YES, has PT been informed?: No Medical Necessity Reason Pt with a Central, PICC or Fol: Yes The following are medically ne: Central Line, Casarez Catheter Reason for casarez catheter: Strict I&O Subjective Review of Systems: RESPIRATORY:Abnormal Other Systems: Patient seen and examined by myself today in follow-up Objective vital signs Vital Sign Date Time Temp Pulse Resp B/P (MAP) Pulse Ox O2 Delivery O2 Flow Rate FiO2 06/03/25 09:36 129/67 06/03/25 06:24 88 14 98 06/03/25 06:16 Room Air 0.0 06/03/25 06:16 21 06/03/25 00:00 98.4 98.4 Total Intake and Output 06/02/25 06/02/25 06/03/25 15:00 23:00 07:00 Intake Total 80 ml 225 ml 125 ml Output Total 650 ml 950 ml Balance 80 ml -425 ml -825 ml medications Current Medications Medications Dose Ordered Sig/Ankur Route Start Time Stop Time Status Last Admin Dose Admin Gabapentin 300 mg TID PO 05/18/25 06:00 06/03/25 06:55 300 MG Clopidogrel Bisulfate 75 mg DAILY PO 05/18/25 10:00 06/03/25 09:36 75 MG Ondansetron HCl 4 mg Q4HP PRN IV 05/18/25 04:45 Nitroglycerin 0.4 mg Q5MINP PRN SL 05/18/25 04:45 Levalbuterol HCl 1.25 mg Q6HR NEB 05/18/25 12:00 06/03/25 06:16 1.25 MG Ipratropium [place] 0.5 mg Q6HR NEB 05/18/25 12:00 06/03/25 06:16 0.5 MG Pantoprazole Sodium 40 mg DAILY IV 05/19/25 10:00 06/03/25 09:35 40 MG Nystatin 1 applic BID TOP 05/20/25 10:00 06/03/25 09:36 1 APPLIC Bumetanide 2 mg BIDD IV 05/20/25 18:00 Cancel Amiodarone HCl 200 mg DAILY PO 05/23/25 10:00 06/03/25 09:35 200 MG Hydralazine HCl 10 mg Q6HR PRN IV 05/28/25 06:00 06/02/25 22:53 10 MG Amlodipine Besylate 5 mg DAILY PO 05/30/25 10:00 06/03/25 09:36 5 MG Acetaminophen 650 mg Q6HP PRN PO 05/31/25 08:00 06/02/25 10:26 650 MG Diagnostic Test (Pha) 1 strip ACHS 05/31/25 11:30 06/03/25 06:55 1 STRIP Insulin Human Regular ACHS SC 05/31/25 11:30 06/03/25 07:00 2 UNITS Dextrose 50 ml UD PRN IV 05/31/25 08:15 Acetylcysteine 100 mg Q6HR NEB 06/02/25 18:00 06/03/25 06:16 100 MG Atorvastatin Calcium 40 mg HS PO 06/02/25 22:00 06/02/25 22:02 40 MG Insulin Glargine 15 units HS SC 06/02/25 13:00 06/02/25 22:24 15 UNITS Furosemide 20 mg DAILY PO 06/03/25 10:00 06/03/25 09:36 20 MG Examination: LUNGS:Normal, CVS:Normal, MSK:Normal laboratory and microbiology Laboratory Tests 06/02/25 05:22 Test 06/02/25 05:22 Range/Units Serum Glucose 73 L 74-106 mg/dL Microbiology Date/Time Source Procedure Growth Status 05/22/25 20:31 Bronchial Washings Gram Stain - Final Complete 05/22/25 20:31 Respiratory Culture - Final Yeast, not Carolina albicans Complete 05/19/25 18:40 Nose MRSA Screen - Final Complete 05/18/25 03:07 Blood Blood Culture - Final NO GROWTH AFTER 5 DAYS OF INCUBATION. Complete Problem List/Assessment/Plan Problem List/Assessment/Plan Acute kidney injury superimposed Chronic Kidney Disease secondary hemodynamic mediated Acute hypoxic respiratory failure, extubated Pneumonia Septic shock, resolved Congestive heart failure exacerbation AFib Diabetes mellitus type 2 Hypoalbuminemia Anemia of chronic kidney disease Hypokalemia Hypernatremia due to insensible water loss Recommendations No labs available today Increased urine output Closely monitor renal function Casarez catheter Strict I&Os KCL replacement DC furosemide IV antibiotics ^H2O intake Insulin sliding scale We will continue to follow up Plan discussed with: Patient Dietary Evaluation Review Comments: Nutrition Recommendation: 1) EN Glucerna 1.2Cal @ 40ml/hr x 24hr (goal) along with Pro-stat 1 pk TID. TF at goal volume along with Propofol & Pro-stat provide 1589 kcal (100%), 103 gm protein (100%), and 773 ml free water. 2) Consider TPN/PN if NPO>7 days 3) [place] 1 pk BID for DFU wound healing 4) Monitor NPO status, lab values, weight trend, and I/O Expected Outcomes/Goals: Wound to improve Intake to meet >75% estimated needs Lab values to improve FU 2-3 days Fluid Accumulation (Non Severe: Mild fluid retention Protein Calorie Malnutrition: N/A Is there a minimum of two crit: No JACINTA TUBBS MD Jun 03, 2025 09:53
--- NOTE | 2025-06-03 11:24 | DVHPN2 ---
Reviewed: Care Plan, H&P, Labs, Medications, Previous Orders, Radiology, Other (Consultations) Changes from previous H/P or p: No Changes General: Per HPI Objective Vitals Vital Signs Date Time Temp Pulse Resp B/P (MAP) Pulse Ox O2 Delivery O2 Flow Rate FiO2 06/03/25 11:00 84 15 131/71 (91) 96 06/03/25 10:00 Room Air* 0 21 06/03/25 08:00 98.6 98.6 Intake/Output Intake and Output 06/03/25 07:00 Intake Total 430 ml Output Total 1600 ml Balance -1170 ml Intake Oral 430 ml Output Urine Total 1600 ml # Bowel Movements 2 General Appearance: Alert, Oriented X3, Cooperative, No acute distress HEENT: Atraumatic, PERRLA, Other (Central line in place) Lungs: Clear to auscultation, Normal air movement Cardiovascular: Regular rate, Normal S1, Normal S2 Abdomen: Normal bowel sounds, Soft Genitourinary: No Apparent Abnormalities (Nogueira catheter), Other (Nogueira's) Musculoskeletal: Normal sensory function, Normal motor function Neuro: Normal speech, Other Skin: Dry, Intact, Other (Stage I-II ulcer on the lateral aspect of the 1st metatarsophalangeal joint of the right side; present on admission; no discharge/bleeding) Psych/Mental Status: Mental status NL, Mood NL Medications Current Medications Medications Dose Ordered Sig/Ankur Route Start Time Stop Time Status Last Admin Dose Admin Gabapentin 300 mg TID PO 05/18/25 06:00 06/03/25 06:55 300 MG Clopidogrel Bisulfate 75 mg DAILY PO 05/18/25 10:00 06/03/25 09:36 75 MG Ondansetron HCl 4 mg Q4HP PRN IV 05/18/25 04:45 Nitroglycerin 0.4 mg Q5MINP PRN SL 05/18/25 04:45 Levalbuterol HCl 1.25 mg Q6HR NEB 05/18/25 12:00 06/03/25 06:16 1.25 MG Ipratropium [place] 0.5 mg Q6HR NEB 05/18/25 12:00 06/03/25 06:16 0.5 MG Pantoprazole Sodium 40 mg DAILY IV 05/19/25 10:00 06/03/25 09:35 40 MG Nystatin 1 applic BID TOP 05/20/25 10:00 06/03/25 09:36 1 APPLIC Bumetanide 2 mg BIDD IV 05/20/25 18:00 Cancel Amiodarone HCl 200 mg DAILY PO 05/23/25 10:00 06/03/25 09:35 200 MG Hydralazine HCl 10 mg Q6HR PRN IV 05/28/25 06:00 06/02/25 22:53 10 MG Amlodipine Besylate 5 mg DAILY PO 05/30/25 10:00 06/03/25 09:36 5 MG Acetaminophen 650 mg Q6HP PRN PO 05/31/25 08:00 06/02/25 10:26 650 MG Diagnostic Test (Pha) 1 strip ACHS 05/31/25 11:30 06/03/25 06:55 1 STRIP Insulin Human Regular ACHS SC 05/31/25 11:30 06/03/25 07:00 2 UNITS Dextrose 50 ml UD PRN IV 05/31/25 08:15 Acetylcysteine 100 mg Q6HR NEB 06/02/25 18:00 06/03/25 06:16 100 MG Atorvastatin Calcium 40 mg HS PO 06/02/25 22:00 06/02/25 22:02 40 MG Insulin Glargine 15 units HS SC 06/02/25 13:00 06/02/25 22:24 15 UNITS Furosemide 20 mg DAILY PO 06/03/25 10:00 06/03/25 09:36 20 MG Laboratory Results Laboratory Tests 06/02/25 05:22 Urinalysis Test 05/24/25 20:00 Urine Color Colorless (Yellow) Urine Clarity Clear (Clear) Urine pH 5.0 (5.0-9.0) Urine Specific [place] 1.012 (1.001-1.035) Urine Protein Negative (Negative) Urine Ketones Negative (Negative) Urine Blood Negative /uL (Negative) Urine Nitrite Negative (Negative) Urine Bilirubin Negative (Negative) Urine Urobilinogen Normal mg/dL (Negative) Urine Leukocyte Esterase 3+ /uL (Negative) Urine RBC 4 /hpf (0 - 3) Urine Microscopic WBC 61 /HPF (0-3) H Urine Squamous Epithelial Cells Few /hpf (<5) Urine Amorphous Crystals Few /hpf (None Seen) Urine Bacteria Few /hpf (None Seen) H Urine Mucus Few (None Seen) Urine Creatinine 28.69 mg/dL (30.0-125.0) L Urine Protein/Creatinine Ratio 0.86 Urine Sodium 96 mmol/L (40-220) Urine Glucose Normal mg/dL (Normal) Urine Total Protein 24.7 mg/dL (1-14) H Microbiology Microbiology Date/Time Source Procedure Growth Status 05/22/25 20:31 Bronchial Washings Gram Stain - Final Complete 05/22/25 20:31 Respiratory Culture - Final Yeast, not [place] albicans Complete 05/19/25 18:40 Nose MRSA Screen - Final Complete 05/18/25 03:07 Blood Blood Culture - Final NO GROWTH AFTER 5 DAYS OF INCUBATION. Complete Labs and/or images reviewed: Labs reviewed by me, Image(s) reviewed by me Assessment/Plan Assessment/Plan Impression: -Acute Hypoxic Respiratory Failure -CAD with previous CABG -DM -Community Acquired PNA, Gram +/ Gram - -? hx of Afib -NSTEMI ? type II -Sepsis -acute on chronic diastolic heart failure Plan: Events: No events overnight -discontinue antibiotic therapy -advanced pureed diet -bronchodilators -stop Lovenox, transitioned to Eliquis -PPI -physical therapy Critical care time spent with patient discussing and formulating plan of care: 40 minutes. This does not include time spent performing procedures. Plan discussed with: Patient Date of Service: Jun 03, 2025 Billing Provider: DAVID TEJADA DO Common Visit Codes: [id number] INP/OBS CARE(HIGH) DAVID TEJADA DO Jun 03, 2025 11:24
--- NOTE | 2025-06-03 23:07 | DVHPN2 ---
Subjective DOS: 06/03/2025 Patient seen and examined at bedside. Breathing comfortably on room air. Overnight events reviewed. Reviewed: Care Plan, H&P, Labs, Medications, Previous Orders, Radiology, Other (Consultations) Changes from previous H/P or p: No Changes General: Per HPI Objective Vitals Vital Signs Date Time Temp Pulse Resp B/P (MAP) Pulse Ox O2 Delivery O2 Flow Rate FiO2 06/03/25 20:00 84 14 92 Room Air* 0 21 06/03/25 20:00 98.4 159/70 (99) 98.4 Intake/Output Intake and Output 06/03/25 07:00 Intake Total 430 ml Output Total 1600 ml Balance -1170 ml Intake Oral 430 ml Output Urine Total 1600 ml # Bowel Movements 2 Exam Gen.: Patient lying in bed in no apparent distress. Breathing on room air. Head: Normocephalic, atraumatic. Eyes: EOMI/PERRLA. Ears: Normal hearing. Normal anatomy. Neck/trachea: Trachea midline, supple. Nose: Normal external anatomy. Mouth: Moist mucous membranes. Chest: Decreased air entry bilaterally. No wheezing or rhonchi. Cardiovascular: Positive S1, positive S2. Regular rate and rhythm. Abdomen: Positive bowel sounds in all 4 quadrants. Soft, non-tender, non- distended. : Deferred. Rectal: Deferred. Skin: Warm, dry. Intact. Extremities: 2+ radial pulses bilaterally. No lower extremity edema. Neuro: Awake, alert, oriented x3. No gross motor or sensory deficits. Cranial nerves II through XII intact. Gait not assessed. General Appearance: Alert, Oriented X3, Cooperative, No acute distress HEENT: Atraumatic, PERRLA, Other (Central line in place) Lungs: Clear to auscultation, Normal air movement Cardiovascular: Regular rate, Normal S1, Normal S2 Abdomen: Normal bowel sounds, Soft Genitourinary: No Apparent Abnormalities (Nogueira catheter), Other (Nogueira's) Musculoskeletal: Normal sensory function, Normal motor function Neuro: Normal speech, Other Skin: Dry, Intact, Other (Stage I-II ulcer on the lateral aspect of the 1st metatarsophalangeal joint of the right side; present on admission; no discharge/bleeding) Psych/Mental Status: Mental status NL, Mood NL Medications Current Medications Medications Dose Ordered Sig/Ankur Route Start Time Stop Time Status Last Admin Dose Admin Gabapentin 300 mg TID PO 05/18/25 06:00 06/03/25 21:16 300 MG Clopidogrel Bisulfate 75 mg DAILY PO 05/18/25 10:00 06/03/25 09:36 75 MG Ondansetron HCl 4 mg Q4HP PRN IV 05/18/25 04:45 Nitroglycerin 0.4 mg Q5MINP PRN SL 05/18/25 04:45 Levalbuterol HCl 1.25 mg Q6HR NEB 05/18/25 12:00 06/03/25 18:07 1.25 MG Ipratropium [place] 0.5 mg Q6HR NEB 05/18/25 12:00 06/03/25 18:07 0.5 MG Pantoprazole Sodium 40 mg DAILY IV 05/19/25 10:00 06/03/25 09:35 40 MG Nystatin 1 applic BID TOP 05/20/25 10:00 06/03/25 09:36 1 APPLIC Bumetanide 2 mg BIDD IV 05/20/25 18:00 Cancel Amiodarone HCl 200 mg DAILY PO 05/23/25 10:00 06/03/25 09:35 200 MG Hydralazine HCl 10 mg Q6HR PRN IV 05/28/25 06:00 06/02/25 22:53 10 MG Amlodipine Besylate 5 mg DAILY PO 05/30/25 10:00 06/03/25 09:36 5 MG Acetaminophen 650 mg Q6HP PRN PO 05/31/25 08:00 06/02/25 10:26 650 MG Diagnostic Test (Pha) 1 strip ACHS 05/31/25 11:30 06/03/25 21:17 1 STRIP Insulin Human Regular ACHS SC 05/31/25 11:30 06/03/25 21:20 4 UNITS Dextrose 50 ml UD PRN IV 05/31/25 08:15 Acetylcysteine 100 mg Q6HR NEB 06/02/25 18:00 06/03/25 18:07 100 MG Atorvastatin Calcium 40 mg HS PO 06/02/25 22:00 06/03/25 21:16 40 MG Insulin Glargine 15 units HS SC 06/02/25 13:00 06/03/25 21:22 15 UNITS Furosemide 20 mg DAILY PO 06/03/25 10:00 06/03/25 09:36 20 MG Laboratory Results Laboratory Tests 06/02/25 05:22 Urinalysis Test 05/24/25 20:00 Urine Color Colorless (Yellow) Urine Clarity Clear (Clear) Urine pH 5.0 (5.0-9.0) Urine Specific [place] 1.012 (1.001-1.035) Urine Protein Negative (Negative) Urine Ketones Negative (Negative) Urine Blood Negative /uL (Negative) Urine Nitrite Negative (Negative) Urine Bilirubin Negative (Negative) Urine Urobilinogen Normal mg/dL (Negative) Urine Leukocyte Esterase 3+ /uL (Negative) Urine RBC 4 /hpf (0 - 3) Urine Microscopic WBC 61 /HPF (0-3) H Urine Squamous Epithelial Cells Few /hpf (<5) Urine Amorphous Crystals Few /hpf (None Seen) Urine Bacteria Few /hpf (None Seen) H Urine Mucus Few (None Seen) Urine Creatinine 28.69 mg/dL (30.0-125.0) L Urine Protein/Creatinine Ratio 0.86 Urine Sodium 96 mmol/L (40-220) Urine Glucose Normal mg/dL (Normal) Urine Total Protein 24.7 mg/dL (1-14) H Microbiology Microbiology Date/Time Source Procedure Growth Status 05/22/25 20:31 Bronchial Washings Gram Stain - Final Complete 05/22/25 20:31 Respiratory Culture - Final Yeast, not Carolina albicans Complete 05/19/25 18:40 Nose MRSA Screen - Final Complete 05/18/25 03:07 Blood Blood Culture - Final NO GROWTH AFTER 5 DAYS OF INCUBATION. Complete Assessment/Plan Assessment/Plan Impression: Acute hypoxic respiratory failure, resolved Pneumonia Diastolic congestive heart failure Pulmonary edema Acute kidney injury Obesity Events: Breathing on room air No distress Supplemental oxygen PRN No acute overnight events. Head of bed elevation Aspiration precautions Continue bronchodilators PRN Mucomyst Chest physiotherapy Continue antibiotics/antifungal Amiodarone PO Incentive spirometry Continue diuresis with Lasix Monitor renal function. Monitor electrolytes. Supplement as necessary Plan to remove PICC line. Labs and imaging reviewed. Rest of plan as noted below. Plan: Supplemental oxygen PRN Titrate to keep O2 sats above 92%. CXR on 06/01/25 demonstrates unchanged pulmonary vascular congestion. Unchanged possible left lower lobe airspace disease or atelectasis. Possible trace left pleural effusion. No pneumothorax. Cardiomegaly. Continue antibiotics Incentive spirometry On Plavix Amiodarone PO Follow up Cardiology recs Diurese to euvolemia Monitor renal function. Monitor electrolytes. Supplement as necessary. Monitor ins and outs. Recommend diet and lifestyle modifications for weight reduction Obesity complicates all care DVT prophylaxis - Lovenox. Prognosis: Guarded given patient's multiple co-morbidities. Rest of plan per hospitalist and other consultants. A total of 51 minutes of clinical care time was spent reviewing the patient record, examining the patient, making a diagnostic and therapeutic plan, discussing this plan with the medical personnel, following up on diagnostic studies and following the patient for clinical stability excluding any and all procedures. At least 50% of this time was spent in direct, [id number] contact. Thank you, JOVANY Wu, for allowing me to participate in this patient's care. Further recommendations will depend on the patient's clinical course. Please do not hesitate to contact me if you have any questions or concerns. This medical document was created using an electronic medical record system with [employer] dictation system. Although these documentations are being carefully reviewed, there may still be some phonetic and typographical changes. The errors are purely typographical, due to imperfection on the software program, and do not reflect any compromise in the patient's medical care. Plan discussed with: Patient, Other (HARSHAD Poon) Visit Coding Pulmonary Billing Provider: AUSTIN SINGH MD Date of Service if different f: Jun 03, 2025 Common Visit Codes: [id number] INP/OBS CARE(HIGH) AUSTIN SINGH MD Jun 03, 2025 23:07
[2025-06-04] VITALS (24 sets, daily range): BP systolic 122–161; BP diastolic 71–88; PULSE 71–89; RESP 12–94; TEMP 98–99; O2SAT 93–100
--- NOTE | 2025-06-04 10:29 | DVHPN2 ---
Progress Note Date Seen: Jun 04, 2025 Has the PT tested + for MRSA If YES, has PT been informed?: No Medical Necessity Reason Pt with a Central, PICC or Fol: Yes The following are medically ne: Central Line, Casarez Catheter Reason for casarez catheter: Strict I&O Subjective Review of Systems: RESPIRATORY:Abnormal Other Systems: Patient seen and examined by myself today in follow-up Objective vital signs Vital Sign Date Time Temp Pulse Resp B/P (MAP) Pulse Ox O2 Delivery O2 Flow Rate FiO2 06/04/25 09:20 141/82 06/04/25 08:04 17 96 Room Air* 0 21 06/04/25 06:53 76 06/04/25 05:00 98.6 98.6 Total Intake and Output 06/03/25 06/03/25 06/04/25 15:00 23:00 07:00 Intake Total 50 ml 225 ml 0 ml Output Total 500 ml 1300 ml Balance 50 ml -275 ml -1300 ml medications Current Medications Medications Dose Ordered Sig/Ankur Route Start Time Stop Time Status Last Admin Dose Admin Gabapentin 300 mg TID PO 05/18/25 06:00 06/04/25 06:26 300 MG Clopidogrel Bisulfate 75 mg DAILY PO 05/18/25 10:00 06/04/25 09:20 75 MG Ondansetron HCl 4 mg Q4HP PRN IV 05/18/25 04:45 Nitroglycerin 0.4 mg Q5MINP PRN SL 05/18/25 04:45 Levalbuterol HCl 1.25 mg Q6HR NEB 05/18/25 12:00 06/04/25 06:42 1.25 MG Ipratropium [place] 0.5 mg Q6HR NEB 05/18/25 12:00 06/04/25 06:42 0.5 MG Pantoprazole Sodium 40 mg DAILY IV 05/19/25 10:00 06/04/25 09:19 40 MG Nystatin 1 applic BID TOP 05/20/25 10:00 06/03/25 09:36 1 APPLIC Bumetanide 2 mg BIDD IV 05/20/25 18:00 Cancel Amiodarone HCl 200 mg DAILY PO 05/23/25 10:00 06/04/25 09:19 200 MG Hydralazine HCl 10 mg Q6HR PRN IV 05/28/25 06:00 06/02/25 22:53 10 MG Amlodipine Besylate 5 mg DAILY PO 05/30/25 10:00 06/04/25 09:20 5 MG Acetaminophen 650 mg Q6HP PRN PO 05/31/25 08:00 06/02/25 10:26 650 MG Diagnostic Test (Pha) 1 strip ACHS 05/31/25 11:30 06/04/25 06:21 1 STRIP Insulin Human Regular ACHS SC 05/31/25 11:30 06/04/25 06:21 3 UNITS Dextrose 50 ml UD PRN IV 05/31/25 08:15 Acetylcysteine 100 mg Q6HR NEB 06/02/25 18:00 06/04/25 06:42 100 MG Atorvastatin Calcium 40 mg HS PO 06/02/25 22:00 06/03/25 21:16 40 MG Insulin Glargine 15 units HS SC 06/02/25 13:00 06/03/25 21:22 15 UNITS Furosemide 20 mg DAILY PO 06/03/25 10:00 06/04/25 09:20 20 MG Examination: LUNGS:Normal, CVS:Normal, MSK:Normal laboratory and microbiology Laboratory Tests 06/02/25 05:22 Test 06/02/25 05:22 Range/Units Serum Glucose 73 L 74-106 mg/dL Microbiology Date/Time Source Procedure Growth Status 05/22/25 20:31 Bronchial Washings Gram Stain - Final Complete 05/22/25 20:31 Respiratory Culture - Final Yeast, not [place] albicans Complete 05/19/25 18:40 Nose MRSA Screen - Final Complete 05/18/25 03:07 Blood Blood Culture - Final NO GROWTH AFTER 5 DAYS OF INCUBATION. Complete Problem List/Assessment/Plan Problem List/Assessment/Plan Acute kidney injury superimposed Chronic Kidney Disease secondary hemodynamic mediated Acute hypoxic respiratory failure, extubated Pneumonia Septic shock, resolved Congestive heart failure exacerbation AFib Diabetes mellitus type 2 Hypoalbuminemia Anemia of chronic kidney disease Hypokalemia Hypernatremia due to insensible water loss Recommendations No labs available today Increased urine output Closely monitor renal function Casarez catheter Strict I&Os KCL replacement DC furosemide IV antibiotics ^H2O intake Insulin sliding scale We will continue to follow up Plan discussed with: Patient Dietary Evaluation Review Comments: Nutrition Recommendation: 1) EN Glucerna 1.2Cal @ 40ml/hr x 24hr (goal) along with Pro-stat 1 pk TID. TF at goal volume along with Propofol & Pro-stat provide 1589 kcal (100%), 103 gm protein (100%), and 773 ml free water. 2) Consider TPN/PN if NPO>7 days 3) Gordon 1 pk BID for DFU wound healing 4) Monitor NPO status, lab values, weight trend, and I/O Expected Outcomes/Goals: Wound to improve Intake to meet >75% estimated needs Lab values to improve FU 2-3 days Fluid Accumulation (Non Severe: Mild fluid retention Protein Calorie Malnutrition: N/A Is there a minimum of two crit: JACINTA Patel MD Jun 04, 2025 10:29
--- NOTE | 2025-06-04 13:59 | DVHPN2 ---
Reviewed: Care Plan, H&P, Labs, Medications, Previous Orders, Radiology, Other (Consultations) Changes from previous H/P or p: No Changes General: Per HPI Objective Vitals Vital Signs Date Time Temp Pulse Resp B/P (MAP) Pulse Ox O2 Delivery O2 Flow Rate FiO2 06/04/25 13:00 98.6 76 18 161/82 (108) 94 98.6 06/04/25 12:00 Room Air* 0 21 Intake/Output Intake and Output 06/04/25 07:00 Intake Total 275 ml Output Total 1800 ml Balance -1525 ml Intake Oral 275 ml Output Urine Total 1800 ml General Appearance: Alert, Oriented X3, Cooperative, No acute distress HEENT: Atraumatic, PERRLA, Other (Central line in place) Lungs: Clear to auscultation, Normal air movement Cardiovascular: Regular rate, Normal S1, Normal S2 Abdomen: Normal bowel sounds, Soft Genitourinary: No Apparent Abnormalities (Nogueira catheter), Other (Nogueira's) Musculoskeletal: Normal sensory function, Normal motor function Neuro: Normal speech, Other Skin: Dry, Intact, Other (Stage I-II ulcer on the lateral aspect of the 1st metatarsophalangeal joint of the right side; present on admission; no discharge/bleeding) Psych/Mental Status: Mental status NL, Mood NL Medications Current Medications Medications Dose Ordered Sig/Ankur Route Start Time Stop Time Status Last Admin Dose Admin Gabapentin 300 mg TID PO 05/18/25 06:00 06/04/25 06:26 300 MG Clopidogrel Bisulfate 75 mg DAILY PO 05/18/25 10:00 06/04/25 09:20 75 MG Ondansetron HCl 4 mg Q4HP PRN IV 05/18/25 04:45 Nitroglycerin 0.4 mg Q5MINP PRN SL 05/18/25 04:45 Levalbuterol HCl 1.25 mg Q6HR NEB 05/18/25 12:00 06/04/25 11:56 1.25 MG Ipratropium [place] 0.5 mg Q6HR NEB 05/18/25 12:00 06/04/25 11:56 0.5 MG Pantoprazole Sodium 40 mg DAILY IV 05/19/25 10:00 06/04/25 09:19 40 MG Nystatin 1 applic BID TOP 05/20/25 10:00 06/04/25 10:00 1 APPLIC Bumetanide 2 mg BIDD IV 05/20/25 18:00 Cancel Amiodarone HCl 200 mg DAILY PO 05/23/25 10:00 06/04/25 09:19 200 MG Hydralazine HCl 10 mg Q6HR PRN IV 05/28/25 06:00 06/02/25 22:53 10 MG Amlodipine Besylate 5 mg DAILY PO 05/30/25 10:00 06/04/25 09:20 5 MG Acetaminophen 650 mg Q6HP PRN PO 05/31/25 08:00 06/02/25 10:26 650 MG Diagnostic Test (Pha) 1 strip ACHS 05/31/25 11:30 06/04/25 11:30 1 STRIP Insulin Human Regular ACHS SC 05/31/25 11:30 06/04/25 12:36 3 UNITS Dextrose 50 ml UD PRN IV 05/31/25 08:15 Acetylcysteine 100 mg Q6HR NEB 06/02/25 18:00 06/04/25 11:56 100 MG Atorvastatin Calcium 40 mg HS PO 06/02/25 22:00 06/03/25 21:16 40 MG Insulin Glargine 15 units HS SC 06/02/25 13:00 06/03/25 21:22 15 UNITS Furosemide 20 mg DAILY PO 06/03/25 10:00 06/04/25 09:20 20 MG Laboratory Results Laboratory Tests 06/02/25 05:22 Urinalysis Test 05/24/25 20:00 Urine Color Colorless (Yellow) Urine Clarity Clear (Clear) Urine pH 5.0 (5.0-9.0) Urine Specific [place] 1.012 (1.001-1.035) Urine Protein Negative (Negative) Urine Ketones Negative (Negative) Urine Blood Negative /uL (Negative) Urine Nitrite Negative (Negative) Urine Bilirubin Negative (Negative) Urine Urobilinogen Normal mg/dL (Negative) Urine Leukocyte Esterase 3+ /uL (Negative) Urine RBC 4 /hpf (0 - 3) Urine Microscopic WBC 61 /HPF (0-3) H Urine Squamous Epithelial Cells Few /hpf (<5) Urine Amorphous Crystals Few /hpf (None Seen) Urine Bacteria Few /hpf (None Seen) H Urine Mucus Few (None Seen) Urine Creatinine 28.69 mg/dL (30.0-125.0) L Urine Protein/Creatinine Ratio 0.86 Urine Sodium 96 mmol/L (40-220) Urine Glucose Normal mg/dL (Normal) Urine Total Protein 24.7 mg/dL (1-14) H Microbiology Microbiology Date/Time Source Procedure Growth Status 05/22/25 20:31 Bronchial Washings Gram Stain - Final Complete 05/22/25 20:31 Respiratory Culture - Final Yeast, not [place] albicans Complete 05/19/25 18:40 Nose MRSA Screen - Final Complete 05/18/25 03:07 Blood Blood Culture - Final NO GROWTH AFTER 5 DAYS OF INCUBATION. Complete Assessment/Plan Assessment/Plan Impression: -Acute Hypoxic Respiratory Failure -CAD with previous CABG -DM -Community Acquired PNA, Gram +/ Gram - -? hx of Afib -NSTEMI ? type II -Sepsis -acute on chronic diastolic heart failure Plan: Events: No events overnight -discontinue antibiotic therapy -advanced pureed diet -bronchodilators -stop Lovenox, transitioned to Eliquis -PPI -physical therapy Critical care time spent with patient discussing and formulating plan of care: 40 minutes. This does not include time spent performing procedures. My Orders Orders - DAVID TEJADA DO Procedure Category Date Status Time Transfer Orders XFER 06/03/25 Transmitted 18:23 Date of Service: Jun 04, 2025 Billing Provider: DAVID TEJADA DO Common Visit Codes: [id number] INP/OBS CARE(HIGH) DAVID TEJADA DO Jun 04, 2025 13:59
[2025-06-04] MEDS: guaiFENesin-DM 100/10mg/5ml SYR PO PRN (14:34)
--- NOTE | 2025-06-04 23:08 | DVHPN2 ---
Subjective DOS: 06/04/2025 Patient seen and examined at bedside. Breathing comfortably on room air. Overnight events reviewed. Reviewed: Care Plan, H&P, Labs, Medications, Previous Orders, Radiology, Other (Consultations) Changes from previous H/P or p: No Changes General: Per HPI Objective Vitals Vital Signs Date Time Temp Pulse Resp B/P (MAP) Pulse Ox O2 Delivery O2 Flow Rate FiO2 06/04/25 21:00 99.0 89 17 124/76 (92) 95 99.0 06/04/25 20:00 Room Air* 0 21 Intake/Output Intake and Output 06/04/25 07:00 Intake Total 275 ml Output Total 1800 ml Balance -1525 ml Intake Oral 275 ml Output Urine Total 1800 ml Exam Gen.: Patient lying in bed in no apparent distress. Breathing on room air. Head: Normocephalic, atraumatic. Eyes: EOMI/PERRLA. Ears: Normal hearing. Normal anatomy. Neck/trachea: Trachea midline, supple. Nose: Normal external anatomy. Mouth: Moist mucous membranes. Chest: Decreased air entry bilaterally. No wheezing or rhonchi. Cardiovascular: Positive S1, positive S2. Regular rate and rhythm. Abdomen: Positive bowel sounds in all 4 quadrants. Soft, non-tender, non- distended. : Deferred. Rectal: Deferred. Skin: Warm, dry. Intact. Extremities: 2+ radial pulses bilaterally. No lower extremity edema. Neuro: Awake, alert, oriented x3. No gross motor or sensory deficits. Cranial nerves II through XII intact. Gait not assessed. General Appearance: Alert, Oriented X3, Cooperative, No acute distress HEENT: Atraumatic, PERRLA, Other (Central line in place) Lungs: Clear to auscultation, Normal air movement Cardiovascular: Regular rate, Normal S1, Normal S2 Abdomen: Normal bowel sounds, Soft Genitourinary: No Apparent Abnormalities (Nogueira catheter), Other (Nogueira's) Musculoskeletal: Normal sensory function, Normal motor function Neuro: Normal speech, Other Skin: Dry, Intact, Other (Stage I-II ulcer on the lateral aspect of the 1st metatarsophalangeal joint of the right side; present on admission; no discharge/bleeding) Psych/Mental Status: Mental status NL, Mood NL Medications Current Medications Medications Dose Ordered Sig/Ankur Route Start Time Stop Time Status Last Admin Dose Admin Gabapentin 300 mg TID PO 05/18/25 06:00 06/04/25 22:27 300 MG Clopidogrel Bisulfate 75 mg DAILY PO 05/18/25 10:00 06/04/25 09:20 75 MG Ondansetron HCl 4 mg Q4HP PRN IV 05/18/25 04:45 Nitroglycerin 0.4 mg Q5MINP PRN SL 05/18/25 04:45 Levalbuterol HCl 1.25 mg Q6HR NEB 05/18/25 12:00 06/04/25 18:45 1.25 MG Ipratropium [place] 0.5 mg Q6HR NEB 05/18/25 12:00 06/04/25 18:45 0.5 MG Pantoprazole Sodium 40 mg DAILY IV 05/19/25 10:00 06/04/25 09:19 40 MG Nystatin 1 applic BID TOP 05/20/25 10:00 06/04/25 10:00 1 APPLIC Bumetanide 2 mg BIDD IV 05/20/25 18:00 Cancel Amiodarone HCl 200 mg DAILY PO 05/23/25 10:00 06/04/25 09:19 200 MG Hydralazine HCl 10 mg Q6HR PRN IV 05/28/25 06:00 06/04/25 14:35 10 MG Amlodipine Besylate 5 mg DAILY PO 05/30/25 10:00 06/04/25 09:20 5 MG Acetaminophen 650 mg Q6HP PRN PO 05/31/25 08:00 06/02/25 10:26 650 MG Diagnostic Test (Pha) 1 strip ACHS 05/31/25 11:30 06/04/25 22:00 1 STRIP Insulin Human Regular ACHS SC 05/31/25 11:30 06/04/25 22:44 4 UNITS Dextrose 50 ml UD PRN IV 05/31/25 08:15 Acetylcysteine 100 mg Q6HR NEB 06/02/25 18:00 06/04/25 18:45 100 MG Atorvastatin Calcium 40 mg HS PO 06/02/25 22:00 06/04/25 22:27 40 MG Insulin Glargine 15 units HS SC 06/02/25 13:00 06/04/25 22:48 15 UNITS Furosemide 20 mg DAILY PO 06/03/25 10:00 06/04/25 09:20 20 MG Guaifenesin/ Dextromethorphan 10 ml Q4HP PRN PO 06/04/25 14:15 06/04/25 22:49 10 ML Laboratory Results Laboratory Tests 06/02/25 05:22 Urinalysis Test 05/24/25 20:00 Urine Color Colorless (Yellow) Urine Clarity Clear (Clear) Urine pH 5.0 (5.0-9.0) Urine Specific [place] 1.012 (1.001-1.035) Urine Protein Negative (Negative) Urine Ketones Negative (Negative) Urine Blood Negative /uL (Negative) Urine Nitrite Negative (Negative) Urine Bilirubin Negative (Negative) Urine Urobilinogen Normal mg/dL (Negative) Urine Leukocyte Esterase 3+ /uL (Negative) Urine RBC 4 /hpf (0 - 3) Urine Microscopic WBC 61 /HPF (0-3) H Urine Squamous Epithelial Cells Few /hpf (<5) Urine Amorphous Crystals Few /hpf (None Seen) Urine Bacteria Few /hpf (None Seen) H Urine Mucus Few (None Seen) Urine Creatinine 28.69 mg/dL (30.0-125.0) L Urine Protein/Creatinine Ratio 0.86 Urine Sodium 96 mmol/L (40-220) Urine Glucose Normal mg/dL (Normal) Urine Total Protein 24.7 mg/dL (1-14) H Microbiology Microbiology Date/Time Source Procedure Growth Status 05/22/25 20:31 Bronchial Washings Gram Stain - Final Complete 05/22/25 20:31 Respiratory Culture - Final Yeast, not [place] albicans Complete 05/19/25 18:40 Nose MRSA Screen - Final Complete 05/18/25 03:07 Blood Blood Culture - Final NO GROWTH AFTER 5 DAYS OF INCUBATION. Complete Assessment/Plan Assessment/Plan Impression: Acute hypoxic respiratory failure, resolved Pneumonia Diastolic congestive heart failure Pulmonary edema Acute kidney injury Obesity Events: Breathing on room air No distress Supplemental oxygen PRN No acute overnight events. Head of bed elevation Aspiration precautions Continue bronchodilators PRN Mucomyst Chest physiotherapy Continue antibiotics/antifungal Amiodarone PO Incentive spirometry Continue diuresis with Lasix Monitor renal function. Monitor electrolytes. Supplement as necessary Recommend to remove PICC line and obtain peripheral access. Labs and imaging reviewed. Rest of plan as noted below. Plan: Supplemental oxygen PRN Titrate to keep O2 sats above 92%. CXR on 06/01/25 demonstrates unchanged pulmonary vascular congestion. Unchanged possible left lower lobe airspace disease or atelectasis. Possible trace left pleural effusion. No pneumothorax. Cardiomegaly. Continue antibiotics Incentive spirometry On Plavix Amiodarone PO Follow up Cardiology recs Diurese to euvolemia Monitor renal function. Monitor electrolytes. Supplement as necessary. Monitor ins and outs. Recommend diet and lifestyle modifications for weight reduction Obesity complicates all care DVT prophylaxis - Lovenox. Prognosis: Guarded given patient's multiple co-morbidities. Rest of plan per hospitalist and other consultants. A total of 51 minutes of clinical care time was spent reviewing the patient record, examining the patient, making a diagnostic and therapeutic plan, discussing this plan with the medical personnel, following up on diagnostic studies and following the patient for clinical stability excluding any and all procedures. At least 50% of this time was spent in direct, [id number] contact. Thank you, JOVANY Wu, for allowing me to participate in this patient's care. Further recommendations will depend on the patient's clinical course. Please do not hesitate to contact me if you have any questions or concerns. This medical document was created using an electronic medical record system with [employer] dictation system. Although these documentations are being carefully reviewed, there may still be some phonetic and typographical changes. The errors are purely typographical, due to imperfection on the software program, and do not reflect any compromise in the patient's medical care. Plan discussed with: Patient, Other (HARSHAD Snow) Visit Coding Pulmonary Billing Provider: AUSTIN SINGH MD Date of Service if different f: Jun 04, 2025 Common Visit Codes: [id number] INP/OBS CARE(HIGH) AUSTIN SINGH MD Jun 04, 2025 23:08
[2025-06-05] VITALS (12 sets, daily range): BP systolic 115–136; BP diastolic 74–79; PULSE 78–89; RESP 12–20; TEMP 37; O2SAT 90–100
[2025-06-05 09:41] LABS: Hematocrit 33.5 % (41.0-53.0); Hemoglobin 10.8 g/dL (13.5-17.5); Mean Corpuscular Hemoglobin 26.9 pg (28.0-32.0); Mean Corpuscular Volume 83.2 fL (80.0-100.0); Nucleated Red Blood Cells % 0.0 %
[2025-06-05 09:49] LABS: Chloride 103 mmol/L (98-107); Potassium 4.6 mmol/L (3.5-5.1); Sodium 139 mmol/L (136-145)
[2025-06-05 09:50] LABS: Anion Gap 10 (5-15); Calcium 9.0 mg/dL (8.7-10.4); Carbon Dioxide 26 mmol/L (20-31)
[2025-06-05 09:55] LABS: BUN/Creatinine Ratio 10.0 (10.0-20.0); Blood Urea Nitrogen 18 mg/dL (9-23)
[2025-06-05 09:57] LABS: Glucose 189 mg/dL (74-106)
--- NOTE | 2025-06-05 14:32 | DVHDS2 ---
Discharge Summary Date of Admission May 18, 2025 at 04:43 Date of Discharge: Jun 05, 2025 Admitting Diagnosis Acute on chronic respiratory failure Labs/Diagnostic Data: Laboratory Results Test 06/05/25 09:26 06/02/25 05:22 06/01/25 04:57 05/29/25 13:40 White Blood Count 14.3 10^3/uL (4.4-10.8) Red Blood Count 4.02 10^6/uL (4.5-5.90) Hemoglobin 10.8 g/dL (13.5-17.5) Hematocrit 33.5 % (41.0-53.0) Mean Corpuscular Volume 83.2 fL (80.0-100.0) Mean Corpuscular Hemoglobin 26.9 pg (28.0-32.0) Mean Corpuscular Hemoglobin Concent 32.3 g/dL (32.0-36.0) Red Cell Distribution Width 17.2 % (11.8-14.3) Platelet Count 227 10^3/uL (140-450) Mean Platelet Volume 9.0 fL (6.9-10.8) Neutrophils (%) (Auto) 76.0 % (37.0-80.0) Lymphocytes (%) (Auto) 13.6 % (10.0-50.0) Monocytes (%) (Auto) 6.6 % (0.0-12.0) Eosinophils (%) (Auto) 3.4 % (0.0-7.0) Basophils (%) (Auto) 0.4 % (0.0-2.0) Neutrophils # (Auto) 10.9 10 ^3/uL (1.6-8.6) Lymphocytes # (Auto) 1.9 10 ^3/uL (0.4-5.4) Monocytes # (Auto) 0.9 10 ^3/uL (0-1.3) Eosinophils # (Auto) 0.5 10 ^3/uL (0-0.8) Basophils # (Auto) 0.1 10 ^3/uL (0-0.2) Nucleated Red Blood Cells 0.0 % Sodium Level 139 mmol/L (136-145) Potassium Level 4.6 mmol/L (3.5-5.1) Chloride Level 103 mmol/L (98-107) Carbon Dioxide Level 26 mmol/L (20-31) Anion Gap 10 (5-15) Blood Urea Nitrogen 18 mg/dL (9-23) Creatinine 1.80 mg/dL (0.700-1.30) Glomerular Filtration Rate Calc 40 mL/min (>90) BUN/Creatinine Ratio 10.0 (10.0-20.0) Serum Glucose 189 mg/dL (74-106) Calcium Level 9.0 mg/dL (8.7-10.4) Total Bilirubin 0.4 mg/dL (0.2-1.0) Aspartate Amino Transferase (AST) 37 U/L (13-40) Alanine Aminotransferase (ALT) 55 U/L (7-40) Alkaline Phosphatase 109 U/L (46-116) Total Protein 6.2 g/dL (5.7-8.2) Albumin 3.6 g/dL (3.2-4.8) Magnesium Level 2.0 mg/dL (1.6-2.6) Blood Gas Specimen Type Arterial Blood Gas Sample Site Right radial Blood Gas Patient Temperature 37.0 Arterial Blood Date Drawn Arterial Blood pH 7.424 (7.350-7.450) Arterial Blood Partial Pressure CO2 29.8 mmHg (35.0-48.0) Arterial Blood Partial Pressure O2 78.3 mmHg (83.0-108.0) Arterial Blood HCO3 19.1 mmol/L (21.0-28.0) Arterial Blood Oxygen Saturation 94.6 % (94.0-98.0) Arterial Blood Base Excess -4.4 mmol/L (-2.0-3.0) Arterial Blood Oxyhemoglobin 94.1 % (94.0-98.0) Arterial Blood Carboxyhemoglobin 0.3 % (0.5-1.5) Arterial Blood Methemoglobin 0.2 % (0.0-1.5) Arterial Blood Deoxyhemoglobin 5.4 % (0.0-5.0) Indra Test Modified Blood Gas Total Hemoglobin 10.90 g/dL (13.5-17.5) Blood Gas Modality Vent - cpap FiO2 % 30.0 Blood Gas PEEP or CPAP 5.0 Test 05/29/25 06:55 05/28/25 07:38 05/27/25 10:05 05/24/25 20:00 Mixed Venous Blood pH 7.452 (7.310-7.450) Mixed Venous Blood PO2 38.3 mmHg (35.0-45.0) Mixed Venous Blood O2 Saturation 69.7 % (75.0-99.0) Mixed Venous Blood Oxyhemoglobin 69.1 % (60.0-80.0) Mixed Venous Bld Carboxyhemoglobin 0.7 % (0.0-3.9) Mixed Venous Blood Methemoglobin 0.2 % (0.0-0.5) Mixed Venous Blood Deoxyhemoglobin 30.0 % (0.0-5.0) Blood Gas Set Respiration Rate 20.0 Blood Gas Tidal Volume 550.0 Blood Gas Critical Value Read Back yes Blood Gas Notified Whom katherine ricks Blood Gas Notified Time [id number] Blood Gas Notified By sylvia rutledge Blood Gas Comments Blood Gas Spontaneous Rate 22 Blood Gas Pressure Support 8 Urine Color Colorless (Yellow) Urine Clarity Clear (Clear) Urine pH 5.0 (5.0-9.0) Urine Specific [place] 1.012 (1.001-1.035) Urine Protein Negative (Negative) Urine Ketones Negative (Negative) Urine Blood Negative /uL (Negative) Urine Nitrite Negative (Negative) Urine Bilirubin Negative (Negative) Urine Urobilinogen Normal mg/dL (Negative) Urine Leukocyte Esterase 3+ /uL (Negative) Urine RBC 4 /hpf (0 - 3) Urine Microscopic WBC 61 /HPF (0-3) Urine Squamous Epithelial Cells Few /hpf (<5) Urine Amorphous Crystals Few /hpf (None Seen) Urine Bacteria Few /hpf (None Seen) Urine Mucus Few (None Seen) Urine Creatinine 28.69 mg/dL (30.0-125.0) Urine Protein/Creatinine Ratio 0.86 Urine Sodium 96 mmol/L (40-220) Urine Glucose Normal mg/dL (Normal) Urine Total Protein 24.7 mg/dL (1-14) Test 05/24/25 13:04 05/24/25 03:01 05/21/25 09:28 05/20/25 11:46 Vitamin D 25-Hydroxy 40.6 ng/mL (30.0-100) Hepatitis B Surface Antigen Negative (Negative) Hepatitis C Antibody Negative (Negative) Phosphorus Level 4.8 mg/dL (2.4-5.1) Parathyroid Hormone (Intact) 164.3 pg/mL (18.4-80.1) Blood Gas Spontaneous Tidal Volume 625 Blood Gas Inspiratory Pressure 20.0 Bl Gas Inspiratory/Expiratory Ratio 1:1.0 POC Glucose 195 mg/dl (70-106) Test 05/19/25 06:40 05/18/25 14:43 05/18/25 04:57 05/18/25 04:50 Blood Gas EPAP 6 Blood Gas IPAP 12 Troponin I High Sensitivity 559 ng/L (</=54) Lactic Acid Level 3.2 mmol/L (0.4-2.0) D-Dimer, Quantitative 3.05 mg/L FEU (0.0-0.49) Test 05/18/25 03:05 05/18/25 02:50 Influenza Type A Antigen Negative (Negative) Influenza Type B Antigen Negative (Negative) SARS-CoV-2 Antigen (Rapid) Negative (NEGATIVE) Hemoglobin A1c 7.2 % A1C (<5.7) B-Type Natriuretic Peptide 549.46 pg/mL (0-100) Other Laboratory Tests 06/05/25 09:26 Brief Hx & Hospital Course: History of Present Illness 70-year-old male presents for evaluation of shortness for breath. Patient endorses a two day history of worsening shortness for breath with associated chest tightness. Also reports having a nonproductive cough. No fever or chills. Course of hospitalization: Patient had worsening respiratory status despite being on BiPAP. Patient's subsequently was endotracheally intubated and placed on mechanical ventilation. Antibiotics were broadened to cover for hospital-acquired pneumonia. Patient's respiratory status improved. He was weaned off mechanical ventilation is currently on room air. Physical therapy was consulted for strengthening exercises. At this time patient is able to only ambulate approximately 2 ft. Long discussion was made with with the patient and family, who are agreeable for patient to be transitioned to a post-acute Center for further physical therapy. Patient has completed full course of IV antibiotics while in the hospital. He will continue all previous home medications for his CHF, as well as CAD. Physical examination General: Alert and Oriented x3. No acute distress. Well-nourished. Obese Eyes: EOMI. Anicteric. HENT: Moist mucous membranes. Lungs: Clear to auscultation bilaterally. No accessory muscle use. Cardiovascular: Regular rate and rhythm. No murmur. No JVD. Abdomen: Soft, non-tender and non-distended. No palpable masses. Extremities: No edema. Non-tender. Skin: No rashes or lesions. Warm. Neurologic: No focal neurological deficits. CN II-XII grossly intact, but not individually tested. Psychiatric: Cooperative. Appropriate mood and affect. Total time spent with patient discussing and formulating plan of care: 35 minutes. This medical document was created using an electronic medical record system with [employer] dictation system. Although this document has been carefully reviewed, there may still be some phonetic and typographical errors. These areas are purely typographical due to imperfections of the software programs, and do not reflect any compromise in the patient's medical care. Consults/Reason for consult Pulmonology: Acute respiratory failure Cardiology: NSTEMI Condition at Discharge: Guarded Final Diagnosis/Problems List Sepsis with acute hypoxic respiratory failure -Acute Hypoxic Respiratory Failure -CAD with previous CABG -DM -Community Acquired PNA, Gram +/ Gram - -? hx of Afib -NSTEMI type II secondary to sepsis -Sepsis -acute on chronic diastolic heart failure Discharge Disposition: Alf Facility Discharge Instruct/Medications Diet: Consistent carbohydrate, Cardiac 2g Na,low cholest Activity: No Restrictions, As Tolerated Follow Up/Referral: Per accepting provider Medications: Refer to medication reconciliation form Scheduled Amiodarone Hcl (Amiodarone Hcl), 200 MG PO Q12HR, (Reported) Amlodipine Besylate (Amlodipine Besylate), 1 TAB PO QAM, (Reported) Apixaban Base (Eliquis), 5 MG PO BID, (Reported) Aspirin (Aspirin Low Dose), 1 TAB PO DAILY, (Reported) Atorvastatin Calcium (Lipitor), 1 TAB PO HS, (Reported) Cholecalciferol (Vitamin D3), 1 CAP PO DAILY, (Reported) Ferrous Sulfate Dried (Iron High Potency), 1 TAB PO BID, (Reported) Furosemide (Furosemide), 40 MG PO BIDD, (Reported) Gabapentin (Gabapentin), 1 CAP PO HS, (Reported) Glimepiride (Glimepiride), 1 TAB PO BID, (Reported) Insulin Glargine (Lantus Solostar), 20 UNIT SC QAM, (Reported) Insulin Glargine (Lantus Solostar), 30 UNIT SC QPM, (Reported) Lansoprazole (Lansoprazole), 1 CAP PO DAILY, (Reported) Losartan Potassium (Losartan Potassium), 1 TAB PO QAM, (Reported) Metformin Hydrochloride (Metformin Hcl), 1 TAB PO BIDWM, (Reported) 36 Discharge Statement: "Patient was advised to return to the ER or call 911 if any headaches, dizziness, shortness of breath, chest pain, abdominal pain, bleeding, fevers, or worsening of medical condition. Patient was counseled about treatment plan, medications, possible side effects, patientverbalized understanding. All questions were answered to the best of my ability. This discharge took greater then 30 minutes in planning, reviewing documentation, counseling the patient, and discussing with other team members." ASSESSMENT ASSESSMENT Assessment Sepsis with acute hypoxic respiratory failure Date of Service: Jun 05, 2025 Billing Provider: CRISTIAN BUTT NP Common Visit Codes: 94484-JNX/OBS DISCH DAY >30min CRISTIAN BUTT NP Jun 05, 2025 14:32
== END 2025-06-05 18:00 | DRG 870 ==
LOC: EDBD 02:36 → ER 02:36 → EDUNIT# 02:36 → EDSEX 02:36 → OVERFLOW 04:43 → EDUNIT# 04:43 → ICU WEST 05-19 17:18 → DOU 05-30 17:18 → TELE-EAST 06-03 23:15 → UNDODISIN 06-05 18:01
PROVIDERS: ADMIT Nurse Practitioner Acute Care; ATTEND Nurse Practitioner Acute Care
PROC: 5A09457 Assistance with Respiratory Ventilation, 24-96 Consecutive Hours, Continuous Positive Airway Pressure (ICD-10-PCS; 2025-05-18)
PROC: 5A1955Z Respiratory Ventilation, Greater than 96 Consecutive Hours (ICD-10-PCS; principal; 2025-05-19)
PROC: 02HV33Z Insertion of Infusion Device into Superior Vena Cava, Percutaneous Approach (ICD-10-PCS; 2025-05-19)
PROC: 0BH17EZ Insertion of Endotracheal Airway into Trachea, Via Natural or Artificial Opening (ICD-10-PCS; 2025-05-19)
PROC: 0B918ZX Drainage of Trachea, Via Natural or Artificial Opening Endoscopic, Diagnostic (ICD-10-PCS; 2025-05-22)
DX: A41.9 Sepsis, unspecified organism (principal); J96.21 Acute and chronic respiratory failure with hypoxia; I50.33 Acute on chronic diastolic (congestive) heart failure; J15.69 Pneumonia due to other Gram-negative bacteria; J15.9 Unspecified bacterial pneumonia; G92.8 Other toxic encephalopathy; R65.21 Severe sepsis with septic shock; I21.A1 Myocardial infarction type 2; I13.0 Hypertensive heart and chronic kidney disease with heart failure and stage 1 through stage 4 chronic kidney disease, or unspecified chronic kidney disease; E87.0 Hyperosmolality and hypernatremia; N17.9 Acute kidney failure, unspecified; Z79.01 Long term (current) use of anticoagulants; N18.9 Chronic kidney disease, unspecified; E66.9 Obesity, unspecified; D63.1 Anemia in chronic kidney disease; I27.20 Pulmonary hypertension, unspecified; E11.22 Type 2 diabetes mellitus with diabetic chronic kidney disease; Z20.822 Contact with and (suspected) exposure to COVID-19; E78.5 Hyperlipidemia, unspecified; I25.10 Atherosclerotic heart disease of native coronary artery without angina pectoris; E88.09 Other disorders of plasma-protein metabolism, not elsewhere classified; L97.519 Non-pressure chronic ulcer of other part of right foot with unspecified severity; E87.6 Hypokalemia; I48.0 Paroxysmal atrial fibrillation; E11.621 Type 2 diabetes mellitus with foot ulcer; I44.7 Left bundle-branch block, unspecified; Z79.899 Other long term (current) drug therapy; Z79.4 Long term (current) use of insulin; Z95.1 Presence of aortocoronary bypass graft; Z79.82 Long term (current) use of aspirin; Z83.3 Family history of diabetes mellitus; Z79.84 Long term (current) use of oral hypoglycemic drugs; Z86.73 Personal history of transient ischemic attack (TIA), and cerebral infarction without residual deficits; Z98.62 Peripheral vascular angioplasty status
CPT/HCPCS: 36415; 36556; 36600; 71045; 74018; 76775; 80048; 80053; 81001; 82306; 82570; 82805; 82962; 83036; 83605; 83735; 83880; 83970; 84100; 84156; 84300; 84484; 85014; 85018; 85025; 85379; 86803; 86850; 86900; 86901; 87040; 87070; 87077; 87081; 87205; 87340; 87426; 87804; 93005; 93306; 94002; 94003; 94640; 94660; 94668; 96374; 96375; 97110; 97116; 97163; 97530; G0378; J0692; J1815; J2003; J2248; J2470; J2704; J3480; J7060; P9047